=== PATIENT | female | born 1955 | race Caucasian/White ===

== ENCOUNTER 2020-03-04 09:48 | Outpatient (REF) | payer MEDICAID, SELFPAY ==
[2020-03-04 10:22] LABS: MANUAL DIFF FLAG NO
[2020-03-04 10:50] LABS: Basophils Percent Auto 0.3 % (0-2); Eosinophils Absolute Auto 0.1 X10*3/uL (0.0-0.4); Eosinophils Percent Auto 0.8 % (0-4); Hematocrit 39.9 % (37-47); Hemoglobin 12.2 g/dl (12.0-16.0); Imm Gran Abs Auto 0.03 X10*3/uL (0.00-0.03); Imm Gran Pct Auto 0.5 % (0.0-0.4); Lymphocytes Absolute Auto 1.9 X10*3/uL (1.2-4.9); Lymphocytes Percent Auto 31.4 % (20-40); Mean Corpuscular HGB Conc 30.6 g/dl (31.0-35.0); Mean Corpuscular Hemoglobin 28.2 pg (27.0-33.0); Mean Corpuscular Volume 92.1 fL (80-98); Mean Platelet Volume 11.9 fL (9.4-12.3); Monocytes Absolute Auto 0.4 X10*3/uL (0.1-1.2); Monocytes Percent Auto 6.7 % (2-11); Neutrophils Absolute Auto 3.6 X10*3/uL (2.0-8.3); Neutrophils Percent Auto 60.3 % (45-73); Platelet Count 251 X10*3/uL (160-400); Red Blood Count 4.33 X10*6/uL (4.20-5.50); Red Cell Distribution Width 14.2 % (11.0-16.0)
[2020-03-04 11:25] LABS: Alanine Aminotransferase 35 U/L (0-31); Albumin Level 3.9 g/dL (3.5-5.0); Alkaline Phosphatase 144 U/L (39-117); Anion Gap 10 (12-20); Aspartate Amino Transferase 30 U/L (5-31); Blood Urea Nitrogen 22 mg/dL (9-16); Calcium 8.5 mg/dL (8.4-10.2); Carbon Dioxide 31 mmol/L (22-29); Chloride 105 mmol/L (96-108); Cholesterol 125 mg/dL; Estimated Glomerular Filt Rate > 60; Glucose Random 95 mg/dL (60-115); HDL Cholesterol 54 mg/dL; LDL Cholesterol Calculated 51 mg/dl; Potassium 4.3 mmol/l (3.3-5.1); Sodium 142 mmol/L (135-145); Total Protein 6.7 g/dL (6.5-8.0); Triglycerides 102 mg/dL
[2020-03-04 11:33] LABS: Bilirubin Total 0.2 mg/dL (0.0-1.0)
== END 2020-03-04 09:49 | disposition home or self-care (01) ==
LOC: HO.LABR 09:48
PROVIDERS: PCP Internal Medicine Medical Oncology; Visit Provider Internal Medicine Medical Oncology
DX: I63.9 Cerebral infarction, unspecified (principal); E66.3 Overweight; Z78.0 Asymptomatic menopausal state
CPT/HCPCS: 36415; 80053; 80061; 85025; 85610

== ENCOUNTER → 2020-03-25 10:11 | Outpatient (BNVA) | payer MEDICAID, SELFPAY | PROVIDERS: PCP Internal Medicine Medical Oncology; Visit Provider Internal Medicine | DX: I69.90 Unspecified sequelae of unspecified cerebrovascular disease (principal); Z79.01 Long term (current) use of anticoagulants; Z51.81 Encounter for therapeutic drug level monitoring | CPT/HCPCS: 85610; 99211 ==

== ENCOUNTER → 2020-05-08 09:38 | Outpatient (BNVA) | payer MEDICAID, SELFPAY | PROVIDERS: PCP Internal Medicine Medical Oncology; Visit Provider Internal Medicine | DX: I69.30 Unspecified sequelae of cerebral infarction (principal); Z51.81 Encounter for therapeutic drug level monitoring; Z79.01 Long term (current) use of anticoagulants | CPT/HCPCS: 85610; 99211 ==

== ENCOUNTER 2020-05-21 12:25 | Outpatient (REF) | payer MEDICAID, SELFPAY | END 2020-05-21 12:26 | disposition home or self-care (01) | LOC: HO.MAMMO 12:25 | PROVIDERS: PCP Internal Medicine Medical Oncology; Visit Provider Internal Medicine Medical Oncology | DX: Z13.89 Encounter for screening for other disorder (principal) ==

== ENCOUNTER → 2020-05-22 10:38 | Outpatient (BNVA) | payer MEDICAID, SELFPAY | PROVIDERS: PCP Internal Medicine Medical Oncology; Visit Provider Internal Medicine | DX: I69.90 Unspecified sequelae of unspecified cerebrovascular disease (principal); Z79.01 Long term (current) use of anticoagulants; Z51.81 Encounter for therapeutic drug level monitoring | CPT/HCPCS: 85610; 99211 ==

== ENCOUNTER 2020-05-30 09:23 | Outpatient (REF) | payer MEDICAID, SELFPAY ==
[2020-05-30 11:39] LABS: INTERNATIONAL NORM RATIO 2.7 (0.9-1.1); Prothrombin Time 32.2 SEC (10.8-13.0)
== END 2020-05-30 09:24 | disposition home or self-care (01) ==
LOC: HO.LAB 09:23
PROVIDERS: PCP Internal Medicine Medical Oncology; Visit Provider Internal Medicine Medical Oncology
DX: I63.9 Cerebral infarction, unspecified (principal)
CPT/HCPCS: 36415; 85610

== ENCOUNTER → 2020-06-12 10:06 | Outpatient (BNVA) | payer MEDICAID, SELFPAY | PROVIDERS: PCP Internal Medicine Medical Oncology; Visit Provider Internal Medicine | DX: I69.30 Unspecified sequelae of cerebral infarction (principal); Z51.81 Encounter for therapeutic drug level monitoring; Z79.01 Long term (current) use of anticoagulants | CPT/HCPCS: 85610; 99211 ==

== ENCOUNTER 2020-06-27 10:51 | Outpatient (REF) | payer MEDICAID, SELFPAY ==
[2020-06-27 12:29] LABS: Glucose Urine UA NEG (NEG); Leukocyte Esterase Urine NEG (NEG); Nitrite Urine NEG (NEG); Urine Blood NEG (NEG); Urine Ketones NEG (NEG); Urine Protein NEG (NEG-TRACE)
[2020-06-27 12:41] LABS: Appearance Urine CLEAR; Color Urine YELLOW
== END 2020-06-27 10:52 | disposition home or self-care (01) ==
LOC: HO.LAB 10:51
PROVIDERS: PCP Internal Medicine Medical Oncology; Visit Provider Internal Medicine Medical Oncology
DX: N39.0 Urinary tract infection, site not specified (principal)
CPT/HCPCS: 81003; 87086

== ENCOUNTER → 2020-07-03 10:19 | Outpatient (BNVA) | payer MEDICAID, SELFPAY | PROVIDERS: PCP Internal Medicine Medical Oncology; Visit Provider Internal Medicine | DX: I69.30 Unspecified sequelae of cerebral infarction (principal); Z51.81 Encounter for therapeutic drug level monitoring; Z79.01 Long term (current) use of anticoagulants | CPT/HCPCS: 85610; 99211 ==

== ENCOUNTER → 2020-07-31 09:45 | Outpatient (BNVA) | payer MEDICAID, SELFPAY | PROVIDERS: PCP Internal Medicine Medical Oncology; Visit Provider Internal Medicine | DX: I69.30 Unspecified sequelae of cerebral infarction (principal); Z51.81 Encounter for therapeutic drug level monitoring; Z79.01 Long term (current) use of anticoagulants | CPT/HCPCS: 85610; 99211 ==

== ENCOUNTER 2020-08-26 09:58 | Outpatient (REF) | payer MEDICAID, SELFPAY ==
[2020-08-26 10:53] LABS: MANUAL DIFF FLAG NO
[2020-08-26 11:02] LABS: Basophils Percent Auto 0.5 % (0-2); Eosinophils Absolute Auto 0.1 X10*3/uL (0.0-0.4); Eosinophils Percent Auto 1.8 % (0-4); Hematocrit 40.8 % (37-47); Hemoglobin 12.4 g/dl (12.0-16.0); Imm Gran Abs Auto 0.02 X10*3/uL (0.00-0.03); Imm Gran Pct Auto 0.3 % (0.0-0.4); Lymphocytes Percent Auto 32.5 % (20-40); Mean Corpuscular HGB Conc 30.4 g/dl (31.0-35.0); Mean Corpuscular Hemoglobin 27.7 pg (27.0-33.0); Mean Corpuscular Volume 91.3 fL (80-98); Mean Platelet Volume 12.3 fL (9.4-12.3); Monocytes Absolute Auto 0.4 X10*3/uL (0.1-1.2); Monocytes Percent Auto 7.3 % (2-11); Neutrophils Absolute Auto 3.5 X10*3/uL (2.0-8.3); Neutrophils Percent Auto 57.6 % (45-73); Platelet Count 254 X10*3/uL (160-400); Red Blood Count 4.47 X10*6/uL (4.20-5.50); Red Cell Distribution Width 14.6 % (11.0-16.0)
[2020-08-26 11:17] LABS: Alanine Aminotransferase 33 U/L (0-31); Alkaline Phosphatase 139 U/L (39-117); Anion Gap 13 (12-20); Aspartate Amino Transferase 28 U/L (5-31); Bilirubin Total 0.3 mg/dL (0.0-1.0); Blood Urea Nitrogen 30 mg/dL (9-16); Calcium 8.6 mg/dL (8.4-10.2); Carbon Dioxide 25 mmol/L (22-29); Chloride 109 mmol/L (96-108); Cholesterol 113 mg/dL; Estimated Glomerular Filt Rate > 60; Glucose Fasting 92 mg/dL (60-99); HDL Cholesterol 49 mg/dL; LDL Cholesterol Calculated 46 mg/dl; Potassium 4.2 mmol/L (3.3-5.1); Sodium 143 mmol/L (135-145); Triglycerides 92 mg/dL
== END 2020-08-26 09:59 | disposition home or self-care (01) ==
LOC: HO.LAB 09:58
PROVIDERS: PCP Internal Medicine Medical Oncology; Visit Provider Internal Medicine Medical Oncology
DX: I10 Essential (primary) hypertension (principal); E66.3 Overweight; I69.30 Unspecified sequelae of cerebral infarction; Z51.81 Encounter for therapeutic drug level monitoring; Z79.01 Long term (current) use of anticoagulants
CPT/HCPCS: 36415; 80053; 80061; 85025; 85610; 99211

== ENCOUNTER → 2020-09-09 09:18 | Outpatient (BNVA) | payer MEDICAID, SELFPAY | PROVIDERS: PCP Internal Medicine Medical Oncology; Visit Provider Internal Medicine | DX: I69.30 Unspecified sequelae of cerebral infarction (principal); Z51.81 Encounter for therapeutic drug level monitoring; Z79.01 Long term (current) use of anticoagulants | CPT/HCPCS: 85610; 99211 ==

== ENCOUNTER → 2020-10-07 09:35 | Outpatient (BNVA) | payer MEDICAID, SELFPAY | PROVIDERS: PCP Internal Medicine Medical Oncology; Visit Provider Internal Medicine | DX: I69.30 Unspecified sequelae of cerebral infarction (principal); Z51.81 Encounter for therapeutic drug level monitoring; Z79.01 Long term (current) use of anticoagulants | CPT/HCPCS: 85610; 99211 ==

== ENCOUNTER → 2020-10-30 09:44 | Outpatient (BNVA) | payer MEDICARE, MEDICAID, SELFPAY | PROVIDERS: PCP Internal Medicine Medical Oncology; Visit Provider Internal Medicine | DX: I69.30 Unspecified sequelae of cerebral infarction (principal); Z51.81 Encounter for therapeutic drug level monitoring; Z79.01 Long term (current) use of anticoagulants | CPT/HCPCS: 85610; 99211 ==

== ENCOUNTER → 2020-11-20 13:50 | Outpatient (BNVA) | payer MEDICARE, MEDICAID, SELFPAY | PROVIDERS: PCP Internal Medicine Medical Oncology; Visit Provider Internal Medicine | DX: Z86.73 Personal history of transient ischemic attack (TIA), and cerebral infarction without residual deficits (principal); Z51.81 Encounter for therapeutic drug level monitoring; Z79.01 Long term (current) use of anticoagulants | CPT/HCPCS: 85610; 99211 ==

== ENCOUNTER 2020-11-21 08:55 | Outpatient (REF) | payer MEDICARE, MEDICAID, SELFPAY ==
[2020-11-21 09:52] LABS: MANUAL DIFF FLAG NO
[2020-11-21 10:10] LABS: Basophils Percent Auto 0.3 % (0-2); Eosinophils Absolute Auto 0.1 X10*3/uL (0.0-0.4); Eosinophils Percent Auto 1.4 % (0-4); Hematocrit 39.7 % (37-47); Imm Gran Abs Auto 0.03 X10*3/uL (0.00-0.03); Imm Gran Pct Auto 0.5 % (0.0-0.4); Lymphocytes Absolute Auto 1.9 X10*3/uL (1.2-4.9); Lymphocytes Percent Auto 32.5 % (20-40); Mean Corpuscular HGB Conc 30.2 g/dl (31.0-35.0); Mean Corpuscular Hemoglobin 27.3 pg (27.0-33.0); Mean Corpuscular Volume 90.4 fL (80-98); Mean Platelet Volume 11.9 fL (9.4-12.3); Monocytes Absolute Auto 0.4 X10*3/uL (0.1-1.2); Monocytes Percent Auto 7.1 % (2-11); Neutrophils Absolute Auto 3.4 X10*3/uL (2.0-8.3); Neutrophils Percent Auto 58.2 % (45-73); Platelet Count 238 X10*3/uL (160-400); Red Blood Count 4.39 X10*6/uL (4.20-5.50); White Blood Count 5.9 X10*3/uL (4.8-10.8)
[2020-11-21 10:29] LABS: Alanine Aminotransferase 35 U/L (0-31); Albumin Level 3.9 g/dL (3.5-5.0); Alkaline Phosphatase 144 U/L (39-117); Anion Gap 12 (12-20); Aspartate Amino Transferase 33 U/L (5-31); Bilirubin Total 0.3 mg/dL (0.0-1.0); Blood Urea Nitrogen 22 mg/dL (9-16); Calcium 8.8 mg/dL (8.4-10.2); Carbon Dioxide 26 mmol/L (22-29); Chloride 108 mmol/L (96-108); Cholesterol 118 mg/dL; Estimated Glomerular Filt Rate > 60; Glucose Random 110 mg/dL (60-115); HDL Cholesterol 52 mg/dL; LDL Cholesterol Calculated 47 mg/dl; Potassium 4.3 mmol/L (3.3-5.1); Sodium 142 mmol/L (135-145); Total Protein 6.9 g/dL (6.5-8.0); Triglycerides 96 mg/dL
== END 2020-11-21 08:56 | disposition home or self-care (01) ==
LOC: HO.LAB 08:55
PROVIDERS: PCP Internal Medicine Medical Oncology; Visit Provider Internal Medicine Medical Oncology
DX: Z86.73 Personal history of transient ischemic attack (TIA), and cerebral infarction without residual deficits (principal); I10 Essential (primary) hypertension
CPT/HCPCS: 36415; 80053; 80061; 85025

== ENCOUNTER → 2020-12-18 09:40 | Outpatient (BNVA) | payer MEDICARE, MEDICAID, SELFPAY | PROVIDERS: PCP Internal Medicine Medical Oncology; Visit Provider Internal Medicine | DX: I69.30 Unspecified sequelae of cerebral infarction (principal); Z51.81 Encounter for therapeutic drug level monitoring; Z79.01 Long term (current) use of anticoagulants | CPT/HCPCS: 85610; 99211 ==

== ENCOUNTER → 2021-01-23 10:04 | Outpatient (BNVA) | payer MEDICARE, MEDICAID, SELFPAY | PROVIDERS: PCP Internal Medicine Medical Oncology; Visit Provider Internal Medicine | DX: I69.30 Unspecified sequelae of cerebral infarction (principal); Z51.81 Encounter for therapeutic drug level monitoring; Z79.01 Long term (current) use of anticoagulants | CPT/HCPCS: 85610; 99211 ==

== ENCOUNTER → 2021-02-20 09:37 | Outpatient (BNVA) | payer MEDICARE, MEDICAID, SELFPAY | PROVIDERS: PCP Internal Medicine Medical Oncology; Visit Provider Internal Medicine | DX: Z86.73 Personal history of transient ischemic attack (TIA), and cerebral infarction without residual deficits (principal); Z51.81 Encounter for therapeutic drug level monitoring; Z79.01 Long term (current) use of anticoagulants | CPT/HCPCS: 85610; 99211 ==

== ENCOUNTER 2021-03-12 10:46 | Outpatient (REF) | payer MEDICARE, MEDICAID, SELFPAY | END 2021-03-12 10:47 | disposition home or self-care (01) | LOC: HO.MAMMO 10:46 | PROVIDERS: Visit Provider Internal Medicine Medical Oncology | DX: Z13.89 Encounter for screening for other disorder (principal) ==

== ENCOUNTER → 2021-03-20 09:51 | Outpatient (BNVA) | payer MEDICARE, MEDICAID, SELFPAY | PROVIDERS: PCP Internal Medicine Medical Oncology; Visit Provider Internal Medicine | DX: I69.30 Unspecified sequelae of cerebral infarction (principal); Z51.81 Encounter for therapeutic drug level monitoring; Z79.01 Long term (current) use of anticoagulants | CPT/HCPCS: 85610; 99211 ==

== ENCOUNTER → 2021-04-17 09:47 | Outpatient (BNVA) | payer MEDICARE, MEDICAID, SELFPAY | PROVIDERS: PCP Internal Medicine Medical Oncology; Visit Provider Internal Medicine | DX: I69.30 Unspecified sequelae of cerebral infarction (principal); Z51.81 Encounter for therapeutic drug level monitoring; Z79.01 Long term (current) use of anticoagulants | CPT/HCPCS: 85610; 99211 ==

== ENCOUNTER 2021-04-25 10:00 | Outpatient (RCR) | payer MEDICARE, MEDICAID, SELFPAY | END 2021-05-07 08:29 | disposition home or self-care (01) | LOC: HO.PT 10:00 | PROVIDERS: PCP Internal Medicine Medical Oncology; Visit Provider Internal Medicine Medical Oncology | DX: I63.9 Cerebral infarction, unspecified (principal) | CPT/HCPCS: 97110; 97116; 97162; 97530 ==

== ENCOUNTER → 2021-05-22 10:06 | Outpatient (BNVA) | payer MEDICARE, MEDICAID, SELFPAY | PROVIDERS: PCP Internal Medicine Medical Oncology; Visit Provider Internal Medicine | DX: I69.30 Unspecified sequelae of cerebral infarction (principal); Z51.81 Encounter for therapeutic drug level monitoring; Z79.01 Long term (current) use of anticoagulants | CPT/HCPCS: 85610; 99211 ==

== ENCOUNTER → 2021-06-23 10:19 | Outpatient (BNVA) | payer MEDICARE, MEDICAID, SELFPAY | PROVIDERS: PCP Internal Medicine Medical Oncology; Visit Provider Internal Medicine | DX: I69.30 Unspecified sequelae of cerebral infarction (principal); Z51.81 Encounter for therapeutic drug level monitoring; Z79.01 Long term (current) use of anticoagulants | CPT/HCPCS: 85610; 99211 ==

== ENCOUNTER → 2021-07-21 10:09 | Outpatient (BNVA) | payer MEDICARE, MEDICAID, SELFPAY | PROVIDERS: PCP Internal Medicine Medical Oncology; Visit Provider Internal Medicine | DX: I69.30 Unspecified sequelae of cerebral infarction (principal); Z51.81 Encounter for therapeutic drug level monitoring; Z79.01 Long term (current) use of anticoagulants | CPT/HCPCS: 85610; 99211 ==

== ENCOUNTER → 2021-08-18 09:47 | Outpatient (BNVA) | payer MEDICARE, MEDICAID, SELFPAY | PROVIDERS: PCP Internal Medicine Medical Oncology; Visit Provider Internal Medicine | DX: I69.30 Unspecified sequelae of cerebral infarction (principal); Z51.81 Encounter for therapeutic drug level monitoring; Z79.01 Long term (current) use of anticoagulants | CPT/HCPCS: 85610; 99211 ==

== ENCOUNTER 2021-08-26 10:06 | Outpatient (REF) | payer MEDICARE, MEDICAID, SELFPAY ==
[2021-08-26 10:25] LABS: MANUAL DIFF FLAG NO
[2021-08-26 10:46] LABS: Basophils Percent Auto 0.4 % (0-2); Eosinophils Absolute Auto 0.1 X10*3/uL (0.0-0.4); Eosinophils Percent Auto 1.5 % (0-4); Hematocrit 41.3 % (37.0-47.0); Hemoglobin 12.6 g/dl (12.0-16.0); Imm Gran Abs Auto 0.03 X10*3/uL (0.00-0.03); Imm Gran Pct Auto 0.4 % (0.0-0.4); Lymphocytes Absolute Auto 2.2 X10*3/uL (1.2-4.9); Lymphocytes Percent Auto 31.9 % (20-40); Mean Corpuscular HGB Conc 30.5 g/dl (31.0-35.0); Mean Corpuscular Hemoglobin 27.2 pg (27.0-33.0); Mean Platelet Volume 11.7 fL (9.4-12.3); Monocytes Absolute Auto 0.6 X10*3/uL (0.1-1.2); Monocytes Percent Auto 8.3 % (2-11); Neutrophils Absolute Auto 3.9 x10*3/uL (2.0-8.3); Neutrophils Percent Auto 57.5 % (45-73); Platelet Count 256 X10*3/uL (160-400); Red Blood Count 4.64 X10*6/uL (4.20-5.50); Red Cell Distribution Width 15.7 % (11.0-16.0); White Blood Count 6.7 X10*3/uL (4.8-10.8)
[2021-08-26 11:16] LABS: Alanine Aminotransferase 44 U/L (0-31); Alkaline Phosphatase 153 U/L (39-117); Anion Gap 13 (12-20); Aspartate Amino Transferase 40 U/L (5-31); Bilirubin Total 0.3 mg/dL (0.0-1.0); Blood Urea Nitrogen 23 mg/dL (9-16); Calcium 9.1 mg/dL (8.4-10.2); Carbon Dioxide 27 mmol/L (22-29); Chloride 107 mmol/L (96-108); Cholesterol 104 mg/dL; Estimated Glomerular Filt Rate > 60; Glucose Fasting 112 mg/dL (60-99); HDL Cholesterol 41 mg/dL; LDL Cholesterol Calculated 45 mg/dl; Potassium 4.6 mmol/L (3.3-5.1); Sodium 142 mmol/L (135-145); Total Protein 6.9 g/dL (6.5-8.0); Triglycerides 92 mg/dL
== END 2021-08-26 10:07 | disposition home or self-care (01) ==
LOC: HO.LAB 10:06
PROVIDERS: PCP Internal Medicine Medical Oncology; Visit Provider Internal Medicine Medical Oncology
DX: I10 Essential (primary) hypertension (principal); I63.9 Cerebral infarction, unspecified; E66.9 Obesity, unspecified
CPT/HCPCS: 36415; 80053; 80061; 85025

== ENCOUNTER 2021-09-17 11:11 | Outpatient (REF) | payer MEDICARE, MEDICAID, SELFPAY ==
--- NOTE | ~2021-09-17 | US_ITS ---
EXAMINATION: US ABDOMEN COMPLETE CLINICAL INFORMATION: Abnormal levels of serum enzymes. Gallstones. COMPARISON: CT abdomen and pelvis 09/13/2012, Ultrasound abdomen 05/27/2010. TECHNIQUE: Real-time imaging of the abdominal viscera. FINDINGS: PANCREAS: Normal. ABDOMINAL AORTA: Visualized aorta is normal in caliber however portions are obscured by bowel gas. INFERIOR VENA CAVA: Visualized portions are normal. LIVER: The liver is normal in size. The liver contour is normal. There is diffuse increased liver parenchymal echogenicity, consistent with infiltrative hepatocellular disease. Benign-appearing 1.8 cm cyst in the left hepatic lobe. There is no intrahepatic biliary duct dilatation seen. GALLBLADDER: A 5 mm gallbladder polyp is slightly decreased from 2010 where it measured 7 mm The gallbladder is physiologically distended without evidence of stones, sludge, wall thickening or pericholecystic fluid. COMMON BILE DUCT: Normal in caliber measuring 0.3 cm in diameter. RIGHT KIDNEY: Normal. No hydronephrosis. No renal calculi or focal parenchymal lesions. The kidney measures 8.7 cm in maximum dimension. LEFT KIDNEY: Normal. No hydronephrosis. No renal calculi or focal parenchymal lesions. The kidney measures 8.3 cm in maximum dimension. SPLEEN: Normal. The spleen measures 10.6 cm in maximum dimension. FREE FLUID: None. US/US abdomen complete IMPRESSION: A 5 mm gallbladder polyp is slightly decreased in size from 2010. Increased hepatic echogenicity which can be seen in the setting of hepatic steatosis or underlying liver disease.
== END 2021-09-17 11:12 | disposition home or self-care (01) ==
LOC: HO.US 11:11
PROVIDERS: Visit Provider Internal Medicine Medical Oncology
DX: K80.20 Calculus of gallbladder without cholecystitis without obstruction (principal); R74.8 Abnormal levels of other serum enzymes; I69.30 Unspecified sequelae of cerebral infarction; Z51.81 Encounter for therapeutic drug level monitoring; Z79.01 Long term (current) use of anticoagulants
CPT/HCPCS: 76700; 85610; 99211

== ENCOUNTER 2021-09-24 09:19 | Outpatient (REF) | payer MEDICARE, MEDICAID, SELFPAY | END 2021-09-24 09:20 | disposition home or self-care (01) | LOC: HO.MAMMO 09:19 | PROVIDERS: Visit Provider Internal Medicine Medical Oncology | DX: Z13.89 Encounter for screening for other disorder (principal) ==

== ENCOUNTER → 2021-10-14 11:16 | Outpatient (BNVA) | payer MEDICARE, MEDICAID, SELFPAY | PROVIDERS: PCP Internal Medicine Medical Oncology; Visit Provider Internal Medicine | DX: I69.30 Unspecified sequelae of cerebral infarction (principal); Z79.01 Long term (current) use of anticoagulants; Z51.81 Encounter for therapeutic drug level monitoring | CPT/HCPCS: 85610; 99211 ==

== ENCOUNTER → 2021-10-24 09:37 | Outpatient (BNVA) | payer MEDICARE, MEDICAID, SELFPAY | PROVIDERS: PCP Internal Medicine Medical Oncology; Visit Provider Internal Medicine | DX: I69.30 Unspecified sequelae of cerebral infarction (principal); Z79.01 Long term (current) use of anticoagulants; Z51.81 Encounter for therapeutic drug level monitoring | CPT/HCPCS: 85610; 99211 ==

== ENCOUNTER → 2021-11-04 09:53 | Outpatient (BNVA) | payer MEDICARE, MEDICAID, SELFPAY | PROVIDERS: PCP Internal Medicine Medical Oncology; Visit Provider Internal Medicine | DX: I69.30 Unspecified sequelae of cerebral infarction (principal); Z79.01 Long term (current) use of anticoagulants; Z51.81 Encounter for therapeutic drug level monitoring | CPT/HCPCS: 85610; 99211 ==

== ENCOUNTER 2021-11-13 10:18 | Outpatient (REF) | payer MEDICARE, MEDICAID, SELFPAY ==
--- NOTE | ~2021-11-13 | MM_ITS ---
EXAMINATION: MM SCREENING DIGITAL BREAST TOMOSYNTHESIS, BILATERAL CLINICAL INFORMATION: Screening. Asymptomatic. The lifetime risk of breast cancer based on the Tyrer-Cuzick Model is 9%. COMPARISON: Mammography: 04/13/2018, 03/17/2017, 03/04/2017 TECHNIQUE: Digital breast tomosynthesis is performed in both the craniocaudal and mediolateral oblique views along with computer-aided detection (CAD). Synthesized 2D images are generated from the tomosynthesis. Additional bilateral exaggerated CC views are provided. Technologist notes technically challenging exam, patient in wheelchair. 2 technologists used for positioning. Exam tailored to patient capabilities. FINDINGS: There are scattered areas of fibroglandular density (ACR BI-RADS breast composition Category b). The submitted images show no significant mass, architectural abnormality, or abnormal calcifications. The skin contours are smooth. MM/MM tomosynthesis screening BI IMPRESSION: -No mammographic evidence of malignancy. -Technically challenging exam tailored to patient capabilities. ASSESSMENT: BI-RADS 2: Benign RECOMMENDATION: Routine annual mammography screening. This patient's information was entered into a reminder system with a target due date for their next mammogram.
== END 2021-11-13 10:19 | disposition home or self-care (01) ==
LOC: HO.MAMMO 10:18
PROVIDERS: Visit Provider Internal Medicine Medical Oncology
DX: Z12.31 Encounter for screening mammogram for malignant neoplasm of breast (principal)
CPT/HCPCS: 77063; 77067

== ENCOUNTER → 2021-12-02 08:52 | Outpatient (BNVA) | payer MEDICARE, MEDICAID, SELFPAY | PROVIDERS: PCP Internal Medicine Medical Oncology; Visit Provider Internal Medicine | DX: K21.9 Gastro-esophageal reflux disease without esophagitis (principal); R10.12 Left upper quadrant pain; I69.351 Hemiplegia and hemiparesis following cerebral infarction affecting right dominant side; I69.328 Other speech and language deficits following cerebral infarction; Z12.11 Encounter for screening for malignant neoplasm of colon; Z99.3 Dependence on wheelchair; Z51.81 Encounter for therapeutic drug level monitoring; Z79.01 Long term (current) use of anticoagulants | CPT/HCPCS: 85610; 99202; 99211 ==

== ENCOUNTER → 2021-12-30 09:51 | Outpatient (BNVA) | payer MEDICARE, MEDICAID, SELFPAY | PROVIDERS: PCP Internal Medicine Medical Oncology; Visit Provider Internal Medicine | DX: I69.30 Unspecified sequelae of cerebral infarction (principal); Z79.01 Long term (current) use of anticoagulants; Z51.81 Encounter for therapeutic drug level monitoring | CPT/HCPCS: 85610; 99211 ==

== ENCOUNTER → 2022-01-27 10:08 | Outpatient (BNVA) | payer MEDICARE, MEDICAID, SELFPAY | PROVIDERS: PCP Internal Medicine Medical Oncology; Visit Provider Internal Medicine | DX: I69.30 Unspecified sequelae of cerebral infarction (principal); Z79.01 Long term (current) use of anticoagulants; Z51.81 Encounter for therapeutic drug level monitoring | CPT/HCPCS: 85610; 99211 ==

== ENCOUNTER 2022-02-03 09:45 | Outpatient (REF) | payer MEDICARE, MEDICAID, SELFPAY ==
[2022-02-03 10:05] LABS: MANUAL DIFF FLAG NO
[2022-02-03 10:51] LABS: Basophils Percent Auto 0.3 % (0-2); Eosinophils Absolute Auto 0.1 X10*3/uL (0.0-0.4); Eosinophils Percent Auto 1.3 % (0-4); Hematocrit 41.7 % (37.0-47.0); Hemoglobin 12.5 g/dl (12.0-16.0); Imm Gran Abs Auto 0.03 X10*3/uL (0.00-0.03); Imm Gran Pct Auto 0.5 % (0.0-0.4); Lymphocytes Absolute Auto 2.1 X10*3/uL (1.2-4.9); Lymphocytes Percent Auto 32.9 % (20-40); Mean Corpuscular Hemoglobin 26.4 pg (27.0-33.0); Mean Platelet Volume 12.7 fL (9.4-12.3); Monocytes Absolute Auto 0.5 X10*3/uL (0.1-1.2); Monocytes Percent Auto 8.1 % (2-11); Neutrophils Absolute Auto 3.6 x10*3/uL (2.0-8.3); Neutrophils Percent Auto 56.9 % (45-73); Platelet Count 195 X10*3/uL (160-400); Red Blood Count 4.74 X10*6/uL (4.20-5.50); White Blood Count 6.3 X10*3/uL (4.8-10.8)
[2022-02-03 11:20] LABS: Alanine Aminotransferase 39 U/L (0-31); Albumin Level 3.9 g/dL (3.5-5.0); Alkaline Phosphatase 169 U/L (39-117); Anion Gap 16 (12-20); Aspartate Amino Transferase 34 U/L (5-31); Bilirubin Total 0.3 mg/dL (0.0-1.0); Blood Urea Nitrogen 23 mg/dL (9-16); Calcium 8.8 mg/dL (8.4-10.2); Carbon Dioxide 24 mmol/L (22-29); Chloride 108 mmol/L (96-108); Cholesterol 108 mg/dL; Estimated Glomerular Filt Rate > 60; Glucose Fasting 117 mg/dL (60-99); HDL Cholesterol 39 mg/dL; LDL Cholesterol Calculated 49 mg/dl; Potassium 4.4 mmol/L (3.3-5.1); Sodium 144 mmol/L (135-145); Total Protein 6.8 g/dL (6.5-8.0); Triglycerides 103 mg/dL
== END 2022-02-03 09:46 | disposition home or self-care (01) ==
LOC: HO.LAB 09:45
PROVIDERS: PCP Internal Medicine Medical Oncology; Visit Provider Internal Medicine Medical Oncology
DX: E66.9 Obesity, unspecified (principal); Z86.73 Personal history of transient ischemic attack (TIA), and cerebral infarction without residual deficits; Z78.0 Asymptomatic menopausal state
CPT/HCPCS: 36415; 80053; 80061; 85025

== ENCOUNTER 2022-02-17 09:59 | Outpatient (REF) | payer MEDICARE, MEDICAID, SELFPAY ==
[2022-02-17 10:16] LABS: MANUAL DIFF FLAG NO
[2022-02-17 11:39] LABS: Basophils Percent Auto 0.4 % (0-2); Eosinophils Absolute Auto 0.1 X10*3/uL (0.0-0.4); Hematocrit 41.6 % (37.0-47.0); Hemoglobin 12.7 g/dl (12.0-16.0); Imm Gran Abs Auto 0.05 X10*3/uL (0.00-0.03); Imm Gran Pct Auto 0.7 % (0.0-0.4); Lymphocytes Absolute Auto 2.1 X10*3/uL (1.2-4.9); Lymphocytes Percent Auto 29.5 % (20-40); Mean Corpuscular HGB Conc 30.5 g/dl (31.0-35.0); Mean Corpuscular Volume 88.5 fL (80.0-98.0); Mean Platelet Volume 12.6 fL (9.4-12.3); Monocytes Absolute Auto 0.5 X10*3/uL (0.1-1.2); Monocytes Percent Auto 7.4 % (2-11); Neutrophils Absolute Auto 4.4 x10*3/uL (2.0-8.3); Platelet Count 235 X10*3/uL (160-400); White Blood Count 7.2 X10*3/uL (4.8-10.8)
[2022-02-17 11:54] LABS: Alanine Aminotransferase 37 U/L (0-31); Albumin Level 4.2 g/dL (3.5-5.0); Alkaline Phosphatase 174 U/L (39-117); Anion Gap 17 (12-20); Aspartate Amino Transferase 35 U/L (5-31); Bilirubin Total 0.3 mg/dL (0.0-1.0); Blood Urea Nitrogen 23 mg/dL (9-16); Calcium 8.7 mg/dL (8.4-10.2); Carbon Dioxide 23 mmol/L (22-29); Chloride 107 mmol/L (96-108); Cholesterol 117 mg/dL; Estimated Glomerular Filt Rate > 60; Glucose Fasting 123 mg/dL (60-99); HDL Cholesterol 41 mg/dL; LDL Cholesterol Calculated 56 mg/dl; Potassium 4.6 mmol/L (3.3-5.1); Sodium 142 mmol/L (135-145); Total Protein 7.1 g/dL (6.5-8.0); Triglycerides 102 mg/dL
== END 2022-02-17 10:00 | disposition home or self-care (01) ==
LOC: HO.LAB 09:59
PROVIDERS: PCP Internal Medicine Medical Oncology; Visit Provider Internal Medicine Medical Oncology
DX: I63.9 Cerebral infarction, unspecified (principal); E66.9 Obesity, unspecified
CPT/HCPCS: 36415; 80053; 80061; 85025

== ENCOUNTER → 2022-02-24 10:25 | Outpatient (BNVA) | payer MEDICARE, MEDICAID, SELFPAY | PROVIDERS: PCP Internal Medicine Medical Oncology; Visit Provider Internal Medicine | DX: I69.30 Unspecified sequelae of cerebral infarction (principal); Z79.01 Long term (current) use of anticoagulants; Z51.81 Encounter for therapeutic drug level monitoring | CPT/HCPCS: 85610; 99211 ==

== ENCOUNTER → 2022-03-10 09:44 | Outpatient (BNVA) | payer MEDICARE, MEDICAID, SELFPAY | PROVIDERS: PCP Internal Medicine Medical Oncology; Visit Provider Internal Medicine | DX: I69.30 Unspecified sequelae of cerebral infarction (principal); Z79.01 Long term (current) use of anticoagulants; Z51.81 Encounter for therapeutic drug level monitoring | CPT/HCPCS: 85610; 99211 ==

== ENCOUNTER → 2022-03-25 10:34 | Outpatient (BNVA) | payer MEDICARE, MEDICAID, SELFPAY | PROVIDERS: PCP Internal Medicine Medical Oncology; Referring Provider Internal Medicine Medical Oncology; Visit Provider Internal Medicine Cardiovascular Disease | DX: Z01.810 Encounter for preprocedural cardiovascular examination (principal) | CPT/HCPCS: 93005; 99212 ==

== ENCOUNTER → 2022-03-31 09:35 | Outpatient (BNVA) | payer MEDICARE, MEDICAID, SELFPAY | PROVIDERS: PCP Internal Medicine Medical Oncology; Visit Provider Internal Medicine | DX: I69.30 Unspecified sequelae of cerebral infarction (principal); Z51.81 Encounter for therapeutic drug level monitoring; Z79.01 Long term (current) use of anticoagulants | CPT/HCPCS: 85610; 99211 ==

== ENCOUNTER 2022-04-08 07:53 | Day surgery (SDC) | payer MEDICARE, MEDICAID, SELFPAY ==
[2022-04-01 12:30] VITALS: BMI 32.4
--- NOTE | 2022-04-07 09:28 | P.CONAN_ITS ---
Documented by User: Anita Finney NP 04/07/22 09:33 HPI - Anesthesia Eval Consult details Narrative: 66yo F for Colonoscopy Cardiac cleared Coumadin for hx embolic CVA (will need lovenox bridge per cardio) [facility] Active Problems Active Problems: All Active Problems (Updated 03/25/22 @ 11:17 by Clive Fong MD) Current use of anticoagulant therapy (Acute) Current use of anticoagulant therapy (Acute) Past Medical History Medical History (Updated 04/07/22 @ 09:31 by Anita Finney NP) Cerebrovascular accident, embolic Cervical disc disease Fibromyalgia Gastritis GERD (gastroesophageal reflux disease) HTN (hypertension) Plantar warts Family History Family History Brother HTN (hypertension) Diabetes Son Diabetes Sister Diabetes HTN (hypertension) Social History Social History Household Members: Family Alcohol intake: never Patient Tobacco Use Status: Never used Tobacco Meds Allergies Allergy/AdvReac Type Severity Reaction Status Date / Time acetaminophen [Percocet] Allergy Severe ITCHY RASH Verified 03/31/22 09:48 oxycodone [Percocet] Allergy Severe Itching Verified 03/31/22 09:48 Penicillins [PENICILLINS] Allergy Intermediate itchy rash Verified 03/31/22 09:48 naproxen [NAPROXEN] Allergy Unknown STOMACH Verified 03/31/22 09:48 PAIN Home Medications Medication Instructions Recorded Confirmed Last Taken Type atorvastatin 80 mg tablet 80 mg PO DAILY 11/20/20 01/27/22 Unknown History fluoxetine 20 mg capsule 20 mg PO DAILY 11/20/20 01/27/22 Unknown History gabapentin 100 mg capsule 100 mg PO DAILY 11/20/20 01/27/22 Unknown History metoprolol tartrate 25 mg tablet 25 mg PO BID 11/20/20 01/27/22 Unknown History omeprazole 20 mg capsule,delayed 20 mg PO DAILY 11/20/20 01/27/22 Unknown History release bisacodyl 5 mg tablet 10 mg PO BEDTIME 03/25/22 Unknown History Exam Exam Date and Time: April 07, 2022 0928 Height,Weight and Vital Signs: Height 5 ft 3 in Weight 83.007 kg Pertinent Lab Results Pertinent Lab Results: Laboratory Tests 02/17/22 02/17/22 10:14 10:14 WBC 7.2 Hgb 12.7 Hct 41.6 Plt Count 235 Sodium 142 Potassium 4.6 Chloride 107 Carbon Dioxide 23 BUN 23 H Creatinine 0.74 Narrative Narrative: EKG 03/2022 normal sinus rhythm nonspecific ST T wave changes with poor R-wave progression due to lead placement., ST T wave changes no significant changes compared to prior EKG Assessment and Plan Assessment Anesthesia Assessment: Chart Reviewed Documented by User: Reed Aceves MD 04/08/22 16:16 HPI - Anesthesia Eval Consult details Narrative: 66yo F for Colonoscopy Cardiac cleared Coumadin for hx embolic CVA (will need lovenox bridge per cardio) right sided residual weakness from prior CVA . Was bridged with Lovenox PMF Past Medical History Medical History (Updated 04/07/22 @ 09:31 by Anita Finney NP) Cerebrovascular accident, embolic Cervical disc disease Fibromyalgia Gastritis GERD (gastroesophageal reflux disease) HTN (hypertension) Plantar warts Family History Family History Brother HTN (hypertension) Diabetes Son Diabetes Sister Diabetes HTN (hypertension) Family history of problems with anesthesia: Yes Surgical History History of Problems with Anesthesia: No Social History Social History Household Members: Family Alcohol intake: never Patient Tobacco Use Status: Never used Tobacco Meds Allergies Allergy/AdvReac Type Severity Reaction Status Date / Time acetaminophen [Percocet] Allergy Severe ITCHY RASH Verified 03/31/22 09:48 oxycodone [Percocet] Allergy Severe Itching Verified 03/31/22 09:48 Penicillins [PENICILLINS] Allergy Intermediate itchy rash Verified 03/31/22 09:48 naproxen [NAPROXEN] Allergy Unknown STOMACH Verified 03/31/22 09:48 PAIN Home Medications Medication Instructions Recorded Confirmed Last Taken Type atorvastatin 80 mg tablet 80 mg PO DAILY 11/20/20 01/27/22 Unknown History fluoxetine 20 mg capsule 20 mg PO DAILY 11/20/20 01/27/22 Unknown History gabapentin 100 mg capsule 100 mg PO DAILY 11/20/20 01/27/22 Unknown History metoprolol tartrate 25 mg tablet 25 mg PO BID 11/20/20 01/27/22 Unknown History omeprazole 20 mg capsule,delayed 20 mg PO DAILY 11/20/20 01/27/22 Unknown History release bisacodyl 5 mg tablet 10 mg PO BEDTIME 03/25/22 Unknown History Exam Airway Mallampati Class: IV TM Dist: <=3cm Neck ROM: Full Loose/Missing/Broken Teeth: Yes Heart: S1,S2 Lungs: b/l breath sounds Assessment and Plan Assessment Anesthesia Assessment: Anesthesia Plan Discussed Final Anesthetic Review Family History of Problems with Anesthesia: Yes History of Problems with Anesthesia: No NPO: Yes ASA Class: III Final Preanesthetic Review: Meds/Allgs Chart Reviewed, Consent Obtained/Reviewed and Anes Risks/Benef Reviewed Patient Risk: High Procedure Risk: Intermediate Anesthetic Plan Anesthetic Plan: MAC: Disposition: Standard PACU
[2022-04-08 08:37] LABS: Prothrombin Time 11.7 SEC (10.0-13.1)
[2022-04-08 08:48] VITALS: BP 119/76; PULSE 67; RESP 18; TEMP 36.4; O2SAT 96
--- NOTE | 2022-04-08 09:07 | MHC.SHP ---
Pre-Procedural Eval Section A Date of Service: 04/08/22 Section B Chief Complaint: screening Details of Present Illness: aunt with CRC and cousin with CRC Relevant Family History (Specify if Yes): Yes Relevant Social History: None Present Medications: see Short Stay Collaborative assessment Medical History: Significant History (Cerebrovascular accident, embolic Cervical disc disease Fibromyalgia Gastritis GERD (gastroesophageal reflux disease) HTN (hypertension) Plantar warts) History of Previous Operations: No relevant previous surgery Allergies: Allergies Allergy/AdvReac Type Severity Reaction Status Date / Time acetaminophen [Percocet] Allergy Severe ITCHY RASH Verified 03/31/22 09:48 oxycodone [Percocet] Allergy Severe Itching Verified 03/31/22 09:48 Penicillins [PENICILLINS] Allergy Intermediate itchy rash Verified 03/31/22 09:48 naproxen [NAPROXEN] Allergy Unknown STOMACH Verified 03/31/22 09:48 PAIN Review of Systems Sugical H&P ROS: Negative: Constitution, Cardiovascular, Respiratory, Neurological, Psychiatric, Hem-Onc, Allergic/Immunologic, Gastrointestinal, Genitourinary, Musculoskeletal, Integumentary, Endocrine and Eyes/Ears/Nose/Throat Exam Surgical H&P Exam: Normal: HEENT, Normal: Heart, Normal: Lungs, Normal: Extremities, Normal: Abdomen and Normal: Skin and Significant Findings: Neurological (aphasia, wheel chair bound ) Plan Diagnosis/Plan: Unchanged I have reviewed the history and physical and performed a pertinent physical examination on my patient. No changes have occurred unless specified.
--- NOTE | 2022-04-08 09:09 | W.PM.OPN ---
Operative Note Operative Note Date of Service: 04/08/22 Narrative: Operative Information Procedure Description: Colonoscopy Indication: screening Anesthesia: MAC COLONOSCOPY Instrument: Olympus variable stiffness pediatric scope 190L Colonoscopy Monitoring: Vital signs and clinical assessment, continuous EKG monitoring, Pulse oximetry, Carbon Dioxide monitoring and blood pressure monitoring were done throughout the procedure. Colon withdrawal time was 10 minutes. Procedure: The patient was placed in the left lateral decubitis position and pre-procedure medications were administered. After a digital rectal examination of the ano-rectum, the video colonoscope was inserted into the rectum and advanced through the colon to the cecum/TI. The colonoscope was slowly withdrawn in a retrograde panoramic fashion and the colon mucosa was carefully examined including a retroflexed view of the rectum. Findings and interventions are described below. Procedure Difficulty: easy Findings: Terminal Ileum-not intubated due to looping Cecum: 5-7 mm sessile polyp removed with cold forceps Ascending Colon: normal Transverse Colon -normal Descending Colon:normal Sigmoid Colon: mild diverticulosis Rectum: Retroflexion with small internal hemorrhoids, grade I Anorectum - normal Colon preparation: [place] Bowel Preparation Scale Right colon; 3 Transverse colon: 3 Left colon; 2 (0 = Unprepared colon segment with mucosa not seen due to solid stool that cannot be cleared. 1 = Portion of mucosa of the colon segment seen, but other areas of the colon segment not well seen due to staining, residual stool and/or opaque liquid. 2 = Minor amount of residual staining, small fragments of stool and/or opaque liquid, but mucosa of colon segment seen well. 3 = Entire mucosa of colon segment seen well with no residual staining, small fragments of stool or opaque liquid) Impression and Post Procedure Diagnosis: polyp internal hemorrhoids diverticular disease Plan: High fiber diet leaflet Avoid straining at stool, epsom salts and sitz bath, anusol supps or cream Repeat Colonoscopy in 5 years if adenomatous polyp, 10 yrs if hyperplastic or earlier if clinically indicated can restart lovenox and warfarin today Above findings were reviewed with the patient and relevant handouts were provided if indicated.
[2022-04-08] MEDS: Lactated Ringers 1,000 ML 100 ML IVCONT (09:18)
[2022-04-08 09:59] VITALS: BP 138/78; PULSE 82; RESP 16; TEMP 36.8; O2SAT 99
[2022-04-08 10:14] VITALS: BP 124/65; PULSE 69; RESP 16; O2SAT 98
[2022-04-08 10:29] VITALS: BP 124/75; PULSE 70; RESP 16; TEMP 36.6; O2SAT 96
== END 2022-04-08 10:57 | disposition home or self-care (01) ==
PROVIDERS: Nurse Practitioner; PCP Internal Medicine Medical Oncology; Visit Provider Internal Medicine Gastroenterology
PROC: 0DJD8ZZ Inspection of Lower Intestinal Tract, Via Natural or Artificial Opening Endoscopic (ICD-10-PCS; CPT 45378; principal; 2022-04-08 09:20)
DX: Z12.11 Encounter for screening for malignant neoplasm of colon (principal); K63.5 Polyp of colon; K57.30 Diverticulosis of large intestine without perforation or abscess without bleeding; K64.0 First degree hemorrhoids; K21.9 Gastro-esophageal reflux disease without esophagitis; M79.7 Fibromyalgia; I69.951 Hemiplegia and hemiparesis following unspecified cerebrovascular disease affecting right dominant side; I10 Essential (primary) hypertension; Z79.01 Long term (current) use of anticoagulants; Z79.899 Other long term (current) drug therapy; Z88.0 Allergy status to penicillin; Z88.8 Allergy status to other drugs, medicaments and biological substances
CPT/HCPCS: 45380; 36415; 85610; 88305

== ENCOUNTER → 2022-04-13 09:41 | Outpatient (BNVA) | payer MEDICARE, MEDICAID, SELFPAY | PROVIDERS: PCP Internal Medicine Medical Oncology; Visit Provider Internal Medicine | DX: I69.30 Unspecified sequelae of cerebral infarction (principal); Z79.01 Long term (current) use of anticoagulants; Z51.81 Encounter for therapeutic drug level monitoring | CPT/HCPCS: 85610; 99212 ==

== ENCOUNTER → 2022-04-15 10:58 | Outpatient (BNVA) | payer MEDICARE, MEDICAID, SELFPAY | PROVIDERS: PCP Internal Medicine Medical Oncology; Visit Provider Internal Medicine | DX: I69.30 Unspecified sequelae of cerebral infarction (principal); Z79.01 Long term (current) use of anticoagulants; Z51.81 Encounter for therapeutic drug level monitoring | CPT/HCPCS: 85610; 99211 ==

== ENCOUNTER → 2022-04-22 09:57 | Outpatient (BNVA) | payer MEDICARE, MEDICAID, SELFPAY | PROVIDERS: PCP Internal Medicine Medical Oncology; Referring Provider Internal Medicine Medical Oncology; Visit Provider Nurse Practitioner Family | DX: K59.04 Chronic idiopathic constipation (principal); I69.951 Hemiplegia and hemiparesis following unspecified cerebrovascular disease affecting right dominant side; I69.928 Other speech and language deficits following unspecified cerebrovascular disease; Z98.890 Other specified postprocedural states; Z99.3 Dependence on wheelchair | CPT/HCPCS: 99212 ==

== ENCOUNTER → 2022-04-24 10:02 | Outpatient (BNVA) | payer MEDICARE, MEDICAID, SELFPAY | PROVIDERS: PCP Internal Medicine Medical Oncology; Visit Provider Internal Medicine | DX: I69.30 Unspecified sequelae of cerebral infarction (principal); Z79.01 Long term (current) use of anticoagulants; Z51.81 Encounter for therapeutic drug level monitoring | CPT/HCPCS: 85610; 99211 ==

== ENCOUNTER → 2022-05-01 10:02 | Outpatient (BNVA) | payer MEDICARE, MEDICAID, SELFPAY | PROVIDERS: PCP Internal Medicine Medical Oncology; Visit Provider Internal Medicine | DX: Z86.73 Personal history of transient ischemic attack (TIA), and cerebral infarction without residual deficits (principal); Z79.01 Long term (current) use of anticoagulants; Z51.81 Encounter for therapeutic drug level monitoring | CPT/HCPCS: 85610; 99211 ==

== ENCOUNTER → 2022-05-15 10:22 | Outpatient (BNVA) | payer MEDICARE, MEDICAID, SELFPAY | PROVIDERS: PCP Internal Medicine Medical Oncology; Visit Provider Internal Medicine | DX: I69.30 Unspecified sequelae of cerebral infarction (principal); Z79.01 Long term (current) use of anticoagulants; Z51.81 Encounter for therapeutic drug level monitoring | CPT/HCPCS: 85610; 99211 ==

== ENCOUNTER → 2022-05-29 10:12 | Outpatient (BNVA) | payer MEDICARE, MEDICAID, SELFPAY | PROVIDERS: PCP Internal Medicine Medical Oncology; Visit Provider Internal Medicine | DX: I69.30 Unspecified sequelae of cerebral infarction (principal); Z79.01 Long term (current) use of anticoagulants; Z51.81 Encounter for therapeutic drug level monitoring | CPT/HCPCS: 85610; 99211 ==

== ENCOUNTER → 2022-06-12 10:17 | Outpatient (BNVA) | payer MEDICARE, MEDICAID, SELFPAY | PROVIDERS: PCP Internal Medicine Medical Oncology; Visit Provider Internal Medicine | DX: Z79.01 Long term (current) use of anticoagulants (principal) | CPT/HCPCS: 85610 ==

== ENCOUNTER 2022-06-12 10:43 | Emergency (ER) | payer MEDICARE, MEDICAID, SELFPAY ==
[2022-06-12 10:49] VITALS: BP 153/81; PULSE 70; RESP 18; TEMP 36.4; O2SAT 97; BMI 42.2
--- NOTE | 2022-06-12 11:55 | ED_ITS ---
HPI - Ear Problem General Chief complaint: Ear Problems Stated complaint: Sore on mouth/ Ear Ache/ High INR? sent by Dr. Lubin Seen by Provider: 06/12/22 10:59 Source: patient Mode of arrival: ambulatory Limitations: no limitations History of Present Illness MD Complaint: ear pain Location: left ear Duration: constant Severity: moderate Relieving factors: nothing Exacerbating factors: chewing and palpation Discharge from ear: no Treatment prior to arrival: none Related Data Home Medications Medication Instructions Recorded Confirmed atorvastatin 80 mg tablet 80 mg PO DAILY 11/20/20 05/01/22 fluoxetine 20 mg capsule 20 mg PO DAILY 11/20/20 05/01/22 gabapentin 100 mg capsule 100 mg PO DAILY 11/20/20 05/01/22 metoprolol tartrate 25 mg tablet 25 mg PO BID 11/20/20 05/01/22 omeprazole 20 mg capsule,delayed 20 mg PO DAILY 11/20/20 05/01/22 release bisacodyl 5 mg tablet,delayed 10 mg PO BEDTIME 04/24/22 05/01/22 release Previous Rx's Medication Instructions Recorded warfarin 4 mg tablet 4 mg PO DAILY #90 tabs 03/04/20 bisacodyl 5 mg tablet 10 mg PO BEDTIME #180 tabs 04/22/22 docusate sodium 100 mg capsule 100 mg PO BEDTIME #90 caps 04/22/22 cyclobenzaprine 10 mg tablet 10 mg PO Q8H #14 tabs 06/12/22 Allergies Allergy/AdvReac Type Severity Reaction Status Date / Time acetaminophen [Percocet] Allergy Severe ITCHY RASH Verified 06/12/22 10:20 oxycodone [Percocet] Allergy Severe Itching Verified 06/12/22 10:20 Penicillins [PENICILLINS] Allergy Intermediate itchy rash Verified 06/12/22 10:2 0 naproxen [NAPROXEN] Allergy Unknown STOMACH Verified 06/12/22 10:20 PAIN Review of Systems Review of Systems: Constitutional : No Weight loss, No Fever, No Chills, No Night Sweats, No Fatigue, No Malaise ENT/Mouth : +left ear pain, No Hearing loss, No Nasal Congestion, No Sinus Pain, No Hoarseness, No sore throat, No Rhinorrhea, No Swallowing Difficulty Eyes: No Eye Pain, No Swelling, No Redness, No Foreign Body, No Discharge, No Vision Changes Cardiovascular : No Chest Pain, No SOB, No Dyspnea on Exertion, No Orthopnea, No Edema, No Palpitations Respiratory : No Cough, No Sputum, No Wheezing, No Smoke Exposure, No Dyspnea Gastrointestinal : No Nausea, No Vomiting, No Diarrhea, No Constipation, No abdominal Pain, No Hematochezia, No Melena Genitourinary : no irregular bleeding, No Dysuria, No Urinary Frequency, No Hematuria, No Urinary Incontinence, No Urgency, No Flank Pain, No Urinary Flow Changes, No Hesitancy Musculoskeletal : No joint pain, No Myalgias, No Joint Swelling Skin : No Skin Lesions, No rash Neuro : No Weakness, No Numbness, No Paresthesias, No Loss of Consciousness, No Dizziness, No Headache Psych : No Anxiety/Panic, No Depression, No SI/HI/AH/VH, No Social Issues, Heme/Lymph: No Bruising, No Bleeding,No Lymphadenopathy Endocrine : No Polyuria, No Polydipsia, No Temperature Intolerance Yes all other systems are reviewed and are negative [facility] Past Medical History Attestation statement: The following information was validated with the patient. Source: old records reviewed and nursing notes reviewed Medical History Cerebrovascular accident, embolic Cervical disc disease Fibromyalgia Gastritis GERD (gastroesophageal reflux disease) HTN (hypertension) Plantar warts Surgical History Hx of colonoscopy Family History Family History Brother HTN (hypertension) Diabetes Son Diabetes Sister Diabetes HTN (hypertension) Social History Social History Household Members: Family Alcohol intake: never Patient Tobacco Use Status: Never used Tobacco Advance Directives: Yes Advance Directives on File: Yes Advance Directives Date on File: 04/08/22 Physical Exam Vital Signs: Vital Signs: Last Vital Signs Temp 97.5 F 06/12/22 10:49 Pulse 70 06/12/22 10:49 Resp 18 06/12/22 10:49 BP 153/81 H 06/12/22 10:49 Pulse Ox 97 06/12/22 10:49 O2 Del Method 06/12/22 10:49 BMI result Body Mass Index 42.2 Vital signs reviewed. Blood pressure normal. Pulse normal. Respiration normal. Oxygen normal. Temperature normal. Appearance: Alert. Oriented X3. No acute distress. Head: Normal external exam. Normocephalic. Atraumatic. Eyes: PERRLA. EOMI. Conjunctiva and sclera normal. Eyelids normal. ENT: EAC normal. TM's Normal. No tenderness of the mastoid. Not consistent mastoiditis. Patient having tenderness over the TMJs when she open and close her jaw she reported moderate pain to the left ear consistent with TMJ syndrome. Pharynx normal. Uvula midline. Moist mucous membranes. No lesions/ulcerations or masses noted on the tongue. Normal voice. No trismus noted. No drooling noted. No muffled voice noted. Neck: Normal inspection. Neck supple. FROM. No adenopathy. Thyroid Normal. No meningeal signs. CVS: Normal heart rate and rhythm. Heart sound normal. Pulses normal throughout. No murmurs/rales/gallops. Respiratory: No respiratory distress. Painless inspiration. Back: Full range of motion noted. Nontender. Skin: Skin warm and dry. Normal skin color. Normal skin turgor. No rashes/lesions/lacerations noted. Extremities: Extremities exhibit normal range of motion and nontender. Neuro: Oriented X 3. No motor deficit. No sensory deficit. Reflexes normal. Normal steady gait. No focal neuro deficits noted. CN's II-XII intact bilaterally? Vascular: + radial pulses. Normal cap refill. No cyanosis noted to upper extremity nails Course Course Course Narrative: Patient with TMJ syndrome. I considered mastoiditis, epidural abscess, malig OE, meningitis, and other infxs but the hx, exam& data did not support the diagnoses. The pt/family was advised that some diseases present atypically & the pt was given explicit DC instructions will DC home with symptomatic treatment instructions to follow-up with PCP. Patient with son at bedside understand agree this plan. Medications Administered Discontinued Medications Generic Name Dose Route Start Last Admin Trade Name Freq PRN Reason Stop Dose Admin Cyclobenzaprine HCl 10 mg 06/12/22 11:56 06/12/22 12:04 Cyclobenzaprine Hcl 10 Mg Tablet PO 06/12/22 11:57 10 mg ONCE ONE Administration Medical Decision Making Independent Historian Clinical information obtained from an independent historian. 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 Patient Disposition: Home, Self-Care Instructions: Temporomandibular Disorder (ED) Prescriptions: New cyclobenzaprine 10 mg tablet 10 mg PO Q8H Qty: 14 0RF No Action metoprolol tartrate 25 mg tablet 25 mg PO BID fluoxetine 20 mg capsule 20 mg PO DAILY gabapentin 100 mg capsule 100 mg PO DAILY omeprazole 20 mg capsule,delayed release(DR/EC) 20 mg PO DAILY atorvastatin 80 mg tablet 80 mg PO DAILY warfarin 4 mg tablet 4 mg PO DAILY Qty: 90 0RF Protocol: Dose Management Condition: Wednesday (Week One) Dose/Route: 2 mg Instruction: 0.5 x 4 mg tablets Condition: Wednesday Dose/Route: 4 mg Instruction: 1 x 4 mg tablet Condition: Wednesday Dose/Route: 2 mg Instruction: 0.5 x 4 mg tablets Condition: Wednesday Dose/Route: 4 mg Instruction: 1 x 4 mg tablet Condition: Dose/Route: 2 mg Instruction: 0.5 x 4 mg tablets Condition: Wednesday Dose/Route: 0 mg Instruction: 0 tablets Condition: Wednesday Dose/Route: 2 mg Instruction: 0.5 x 4 mg tablets Condition: Wednesday (Week Two) Dose/Route: 2 mg Instruction: 0.5 x 4 mg tablets Condition: Wednesday Dose/Route: 4 mg Instruction: 1 x 4 mg tablet Condition: Wednesday Dose/Route: 2 mg Instruction: 0.5 x 4 mg tablets Condition: Wednesday Dose/Route: 4 mg Instruction: 1 x 4 mg tablet Condition: Dose/Route: 2 mg Instruction: 0.5 x 4 mg tablets Condition: Wednesday Dose/Route: 4 mg Instruction: 1 x 4 mg tablet Condition: Wednesday Dose/Route: 2 mg Instruction: 0.5 x 4 mg tablets Protocol Text: Adjustment Start Date: Wednesday06/12/22 INR Value: 4.0 INR Date: 06/12/22 Recheck Date: 06/18/22 Rx Instructions: 4mg mwf/ 2mg x4days bisacodyl 5 mg tablet,delayed release (DR/EC) 10 mg PO BEDTIME bisacodyl 5 mg tablet 10 mg PO BEDTIME Qty: 180 0RF docusate sodium 100 mg capsule 100 mg PO BEDTIME Qty: 90 3RF Referrals: Jose E Hubbard MD [Primary Care Provider] - 2 days Interventions: ED Discharge Assessment Last Done: 06/12/22 12:08 Discharge Date/Time: 06/12/22 12:08
[2022-06-12] MEDS: Cyclobenzaprine HCl 10 MG TABLET PO (12:04)
== END 2022-06-12 12:08 | disposition home or self-care (01) ==
PROVIDERS: Emergency Provider Student in an Organized Health Care Education/Training Program; PCP Internal Medicine Medical Oncology
DX: M26.622 Arthralgia of left temporomandibular joint (principal); R79.1 Abnormal coagulation profile; I10 Essential (primary) hypertension; Z86.73 Personal history of transient ischemic attack (TIA), and cerebral infarction without residual deficits; Z79.01 Long term (current) use of anticoagulants; Z79.02 Long term (current) use of antithrombotics/antiplatelets; Z79.899 Other long term (current) drug therapy
CPT/HCPCS: 85610; 99211; 99283

== ENCOUNTER → 2022-06-17 10:01 | Outpatient (BNVA) | payer MEDICARE, MEDICAID, SELFPAY | PROVIDERS: PCP Internal Medicine Medical Oncology; Visit Provider Internal Medicine | DX: I69.30 Unspecified sequelae of cerebral infarction (principal); Z79.01 Long term (current) use of anticoagulants; Z51.81 Encounter for therapeutic drug level monitoring | CPT/HCPCS: 85610; 99211 ==

== ENCOUNTER 2022-07-01 09:56 | Outpatient (REF) | payer MEDICARE, MEDICAID, SELFPAY ==
[2022-07-01 10:52] LABS: MANUAL DIFF FLAG NO
[2022-07-01 12:09] LABS: Basophils Percent Auto 0.4 % (0-2); Eosinophils Absolute Auto 0.1 X10*3/uL (0.0-0.4); Eosinophils Percent Auto 1.3 % (0-4); Hematocrit 43.2 % (37.0-47.0); Hemoglobin 13.3 g/dl (12.0-16.0); Imm Gran Abs Auto 0.02 X10*3/uL (0.00-0.03); Imm Gran Pct Auto 0.3 % (0.0-0.4); Lymphocytes Absolute Auto 1.9 X10*3/uL (1.2-4.9); Lymphocytes Percent Auto 28.1 % (20-40); Mean Corpuscular HGB Conc 30.8 g/dl (31.0-35.0); Mean Corpuscular Hemoglobin 26.7 pg (27.0-33.0); Mean Corpuscular Volume 86.6 fL (80.0-98.0); Mean Platelet Volume 12.2 fL (9.4-12.3); Monocytes Absolute Auto 0.5 X10*3/uL (0.1-1.2); Monocytes Percent Auto 6.7 % (2-11); Neutrophils Absolute Auto 4.4 x10*3/uL (2.0-8.3); Neutrophils Percent Auto 63.2 % (45-73); Platelet Count 267 X10*3/uL (160-400); Red Blood Count 4.99 X10*6/uL (4.20-5.50); Red Cell Distribution Width 15.4 % (11.0-16.0); White Blood Count 6.9 X10*3/uL (4.8-10.8)
[2022-07-01 13:07] LABS: Alanine Aminotransferase 45 U/L (0-31); Albumin Level 3.9 g/dL (3.5-5.0); Alkaline Phosphatase 178 U/L (39-117); Anion Gap 16 (12-20); Aspartate Amino Transferase 41 U/L (5-31); Bilirubin Total 0.4 mg/dL (0.0-1.0); Blood Urea Nitrogen 23 mg/dL (9-16); Calcium 8.4 mg/dL (8.4-10.2); Carbon Dioxide 23 mmol/L (22-29); Chloride 110 mmol/L (96-108); Cholesterol 111 mg/dL; Estimated Glomerular Filt Rate > 60; Glucose Fasting 114 mg/dL (60-99); HDL Cholesterol 42 mg/dL; LDL Cholesterol Calculated 52 mg/dl; Potassium 4.4 mmol/L (3.3-5.1); Sodium 145 mmol/L (135-145); Total Protein 6.6 g/dL (6.5-8.0); Triglycerides 88 mg/dL
== END 2022-07-01 09:57 | disposition home or self-care (01) ==
LOC: HO.LAB 09:56
PROVIDERS: Absent Provider Internal Medicine Medical Oncology; PCP Internal Medicine Medical Oncology; Visit Provider Internal Medicine
DX: M79.7 Fibromyalgia (principal); E66.9 Obesity, unspecified; Z86.73 Personal history of transient ischemic attack (TIA), and cerebral infarction without residual deficits
CPT/HCPCS: 36415; 80053; 80061; 85025; 85610; 99211

== ENCOUNTER → 2022-07-29 09:23 | Outpatient (BNVA) | payer MEDICARE, MEDICAID, SELFPAY | PROVIDERS: PCP Internal Medicine Medical Oncology; Visit Provider Nurse Practitioner Family | DX: I69.351 Hemiplegia and hemiparesis following cerebral infarction affecting right dominant side (principal); Z79.01 Long term (current) use of anticoagulants; Z51.81 Encounter for therapeutic drug level monitoring; K59.04 Chronic idiopathic constipation; K21.9 Gastro-esophageal reflux disease without esophagitis; Z99.3 Dependence on wheelchair | CPT/HCPCS: 85610; 99211; 99212 ==

== ENCOUNTER → 2022-08-05 09:51 | Outpatient (BNVA) | payer MEDICARE, MEDICAID, SELFPAY | PROVIDERS: PCP Internal Medicine Medical Oncology; Visit Provider Internal Medicine | DX: I69.30 Unspecified sequelae of cerebral infarction (principal); Z79.01 Long term (current) use of anticoagulants; Z51.81 Encounter for therapeutic drug level monitoring | CPT/HCPCS: 85610; 99211 ==

== ENCOUNTER 2022-08-12 10:19 | Outpatient (REF) | payer MEDICARE, MEDICAID, SELFPAY ==
--- NOTE | ~2022-08-12 | XR_ITS ---
EXAMINATION: XR CHEST CLINICAL INFORMATION: Exposure to tuberculosis. COMPARISON: Chest x-ray of 07/05/2018 and 03/11/2012. TECHNIQUE: 2 views of the chest were obtained. FINDINGS: Cardiomediastinal silhouette is stable and normal. No abnormal tracheal deviation. The lungs are hypoexpanded with bronchovascular crowding. Similar appearance of the lung parenchyma is noted on the chest x-ray of 07/05/2018. No focal airspace opacities, changes of overt pulmonary edema, pleural effusions or pneumothorax are seen. Regional skeleton is intact. XR/XR chest 2V IMPRESSION: No convincing radiographic evidence of acute pulmonary process. Low lung volumes with bronchovascular crowding. No significant interval change is noted compared to previous x-ray of 07/05/2018.
[2022-08-14 23:33] LABS: TS Negative Control Passed; TS Panel A 1; TS Panel B 2; TS Positive Control Passed; TSpotTB Negative (Negative)
== END 2022-08-12 10:20 | disposition home or self-care (01) ==
LOC: HO.LAB 10:19
PROVIDERS: PCP Internal Medicine Medical Oncology; Visit Provider Internal Medicine Medical Oncology
DX: I69.30 Unspecified sequelae of cerebral infarction (principal); Z20.1 Contact with and (suspected) exposure to tuberculosis; Z51.81 Encounter for therapeutic drug level monitoring; Z79.01 Long term (current) use of anticoagulants
CPT/HCPCS: 36415; 71046; 85610; 86481; 99211

== ENCOUNTER → 2022-08-19 10:04 | Outpatient (BNVA) | payer MEDICARE, MEDICAID, SELFPAY | PROVIDERS: PCP Internal Medicine Medical Oncology; Visit Provider Internal Medicine | DX: I69.30 Unspecified sequelae of cerebral infarction (principal); Z79.01 Long term (current) use of anticoagulants; Z51.81 Encounter for therapeutic drug level monitoring | CPT/HCPCS: 85610; 99211 ==

== ENCOUNTER → 2022-09-02 09:47 | Outpatient (BNVA) | payer MEDICARE, MEDICAID, SELFPAY | PROVIDERS: PCP Internal Medicine Medical Oncology; Visit Provider Internal Medicine | DX: I69.30 Unspecified sequelae of cerebral infarction (principal); Z79.01 Long term (current) use of anticoagulants; Z51.81 Encounter for therapeutic drug level monitoring | CPT/HCPCS: 85610; 99211 ==

== ENCOUNTER 2022-09-04 09:05 | Outpatient (REF) | payer MEDICARE, MEDICAID, SELFPAY ==
--- NOTE | ~2022-09-04 | US_ITS ---
EXAMINATION: US ABDOMEN COMPLETE CLINICAL INFORMATION: Abdominal pain. COMPARISON: Ultrasound abdomen complete dated 09/17/2021 and 05/27/2010. CT abdomen and pelvis with contrast dated 09/13/2012. X-ray abdomen dated 07/31/2010 and 02/27/2009. TECHNIQUE: Real-time imaging of the abdominal viscera. Technically difficult study secondary to the patient's inability to cooperate. FINDINGS: PANCREAS: Normal. ABDOMINAL AORTA: Visualized aorta is normal in caliber however portions are obscured by bowel gas. INFERIOR VENA CAVA: Obscured by bowel gas. LIVER: 1.8 cm simple left hepatic lobe cyst. The liver is normal in size. The liver contour is normal. There is diffuse increased liver parenchymal echogenicity, consistent with infiltrative hepatocellular disease. There is no intrahepatic biliary duct dilatation seen. GALLBLADDER: Limited evaluation of the gallbladder. The gallbladder is physiologically distended without evidence of stones, sludge, polyps, wall thickening or pericholecystic fluid. COMMON BILE DUCT: Normal in caliber measuring 0.6 cm in diameter. RIGHT KIDNEY: Limited views. No hydronephrosis. No renal calculi or focal parenchymal lesions although exam is suboptimal. The kidney measures 9.1 cm in maximum dimension. LEFT KIDNEY: Limited views of the left kidney No hydronephrosis. No renal calculi or focal parenchymal lesions, though the exam is suboptimal and portions of the kidney were not well seen. The kidney measures 7.1 cm in maximum dimension. SPLEEN: Spleen was not seen. FREE FLUID: None. US/US abdomen complete IMPRESSION: Technically limited exam with portions of the abdomen obscured by bowel gas, as detailed above. Increased hepatic echogenicity which can be seen in the setting of hepatic steatosis or underlying liver disease.
== END 2022-09-04 09:06 | disposition home or self-care (01) ==
LOC: HO.US 09:05
PROVIDERS: PCP Internal Medicine Medical Oncology; Visit Provider Internal Medicine Medical Oncology
DX: R10.9 Unspecified abdominal pain (principal)
CPT/HCPCS: 76700

== ENCOUNTER → 2022-09-16 10:24 | Outpatient (BNVA) | payer MEDICARE, MEDICAID, SELFPAY | PROVIDERS: PCP Internal Medicine Medical Oncology; Visit Provider Internal Medicine | DX: I69.30 Unspecified sequelae of cerebral infarction (principal); Z79.01 Long term (current) use of anticoagulants; Z51.81 Encounter for therapeutic drug level monitoring | CPT/HCPCS: 85610; 99211 ==

== ENCOUNTER → 2022-09-30 10:22 | Outpatient (BNVA) | payer MEDICARE, MEDICAID, SELFPAY | PROVIDERS: PCP Internal Medicine Medical Oncology; Visit Provider Internal Medicine | DX: I69.30 Unspecified sequelae of cerebral infarction (principal); Z79.01 Long term (current) use of anticoagulants; Z51.81 Encounter for therapeutic drug level monitoring | CPT/HCPCS: 85610; 99211 ==

== ENCOUNTER 2022-10-01 09:45 | Outpatient (REF) | payer MEDICARE, MEDICAID, SELFPAY ==
[2022-10-01 10:06] LABS: MANUAL DIFF FLAG NO
[2022-10-01 10:32] LABS: Basophils Percent Auto 0.3 % (0-2); Eosinophils Absolute Auto 0.1 X10*3/uL (0.0-0.4); Hematocrit 41.3 % (37.0-47.0); Hemoglobin 12.6 g/dl (12.0-16.0); Imm Gran Abs Auto 0.05 X10*3/uL (0.00-0.03); Imm Gran Pct Auto 0.6 % (0.0-0.4); Lymphocytes Absolute Auto 2.4 X10*3/uL (1.2-4.9); Lymphocytes Percent Auto 27.9 % (20-40); Mean Corpuscular HGB Conc 30.5 g/dl (31.0-35.0); Mean Corpuscular Hemoglobin 26.9 pg (27.0-33.0); Mean Corpuscular Volume 88.2 fL (80.0-98.0); Mean Platelet Volume 11.9 fL (9.4-12.3); Monocytes Absolute Auto 0.7 X10*3/uL (0.1-1.2); Neutrophils Absolute Auto 5.4 x10*3/uL (2.0-8.3); Neutrophils Percent Auto 62.2 % (45-73); Platelet Count 298 X10*3/uL (160-400); Red Blood Count 4.68 X10*6/uL (4.20-5.50); Red Cell Distribution Width 15.5 % (11.0-16.0); White Blood Count 8.7 X10*3/uL (4.8-10.8)
[2022-10-01 11:03] LABS: Cholesterol 99 mg/dL; HDL Cholesterol 37 mg/dL; LDL Cholesterol Calculated 45 mg/dl; Triglycerides 89 mg/dL
== END 2022-10-01 09:46 | disposition home or self-care (01) ==
LOC: HO.LAB 09:45
PROVIDERS: PCP Internal Medicine Medical Oncology; Visit Provider Internal Medicine Medical Oncology
DX: E66.9 Obesity, unspecified (principal)
CPT/HCPCS: 36415; 80061; 85025

== ENCOUNTER → 2022-10-19 10:07 | Outpatient (BNVA) | payer MEDICARE, MEDICAID, SELFPAY | PROVIDERS: PCP Internal Medicine Medical Oncology; Visit Provider Internal Medicine | DX: I69.30 Unspecified sequelae of cerebral infarction (principal); Z79.01 Long term (current) use of anticoagulants; Z51.81 Encounter for therapeutic drug level monitoring | CPT/HCPCS: 85610; 99211 ==

== ENCOUNTER → 2022-11-09 10:25 | Outpatient (BNVA) | payer MEDICARE, MEDICAID, SELFPAY | PROVIDERS: PCP Internal Medicine Medical Oncology; Visit Provider Internal Medicine | DX: I69.30 Unspecified sequelae of cerebral infarction (principal); Z51.81 Encounter for therapeutic drug level monitoring; Z79.01 Long term (current) use of anticoagulants | CPT/HCPCS: 85610; 99211 ==

== ENCOUNTER 2022-11-30 10:18 | Outpatient (AMB) | payer MEDICARE, MEDICAID, SELFPAY ==
--- NOTE | 2022-11-30 10:24 | MHC.OFFVISCO ---
Intake Intake Visit Reasons: Anticoagulation Allergies acetaminophen [Percocet] Allergy (Severe, Verified 11/30/22 10:20) ITCHY RASH oxycodone [Percocet] Allergy (Severe, Verified 11/30/22 10:20) Itching Penicillins [PENICILLINS] Allergy (Intermediate, Verified 11/30/22 10:20) itchy rash naproxen [NAPROXEN] Allergy (Unknown, Verified 11/30/22 10:20) STOMACH PAIN Medication List - Last Reconciled 11/30/22 by Ana Maria Mccullough RN atorvastatin 80 mg PO DAILY bisacodyl 10 mg PO BEDTIME docusate sodium 100 mg PO BEDTIME fluoxetine 20 mg PO DAILY gabapentin 100 mg PO DAILY metoprolol tartrate 25 mg PO BID omeprazole 20 mg PO DAILY warfarin 4 mg See Protocol PO DAILY Nursing Note INR: 2.3- in therapeutic range Medications and supplements reviewed- no changes No changes in health, diet, medications, or supplements, Denies any signs and symptoms of bleeding or bruising or clotting. 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
[2022-11-30 10:26] LABS: Prothrombin Time Whole Bld POC 27.7 sec (11.1-13.5); ~PT, ~INR - Anti Coag Clinic 2.3 (0.9-1.1)
== END 2022-11-30 10:28 | disposition home or self-care (01) ==
LOC: HO.ACS 10:18
PROVIDERS: PCP Internal Medicine Medical Oncology; Visit Provider Internal Medicine
DX: Z79.01 Long term (current) use of anticoagulants (principal)

== ENCOUNTER → 2022-11-30 10:18 | Outpatient (BNVA) | payer MEDICARE, MEDICAID, SELFPAY | PROVIDERS: PCP Internal Medicine Medical Oncology; Visit Provider Internal Medicine | DX: I69.30 Unspecified sequelae of cerebral infarction (principal); Z79.01 Long term (current) use of anticoagulants; Z51.81 Encounter for therapeutic drug level monitoring | CPT/HCPCS: 85610; 99211 ==

== ENCOUNTER 2022-12-21 10:14 | Outpatient (AMB) | payer MEDICARE, MEDICAID, SELFPAY ==
--- NOTE | 2022-12-21 10:28 | MHC.OFFVISCO ---
Intake Intake Visit Reasons: Anticoagulation Allergies acetaminophen [Percocet] Allergy (Severe, Verified 12/21/22 10:24) ITCHY RASH oxycodone [Percocet] Allergy (Severe, Verified 12/21/22 10:24) Itching Penicillins [PENICILLINS] Allergy (Intermediate, Verified 12/21/22 10:24) itchy rash naproxen [NAPROXEN] Allergy (Unknown, Verified 12/21/22 10:24) STOMACH PAIN Medication List - Last Reconciled 12/21/22 by Ana Maria Mccullough RN atorvastatin 80 mg PO DAILY bisacodyl 10 mg PO BEDTIME docusate sodium 100 mg PO BEDTIME fluoxetine 20 mg PO DAILY gabapentin 100 mg PO DAILY metoprolol tartrate 25 mg PO BID omeprazole 20 mg PO DAILY warfarin 4 mg See Protocol PO DAILY Nursing Note INR 3.4-? out of therapeutic range Medications and supplements reviewed Patient status: pt to acs in w/c Medications or supplements: no changes Diet: appetite is good Denies any signs and symptoms of bleeding or clotting or unusual bruising Bleeding, bruising, clotting discussed Nutritional guidance given: eat a green today, no reds for 2 days Dose: 2mg today then cont reg 4mg x 3, 2mg x 4 F/U INR Date : 2 weeks? Patient verbalizing understanding of instructions given. Anti-Coag Initial Assessment Social Hx Patient Tobacco Use Status: Never used Tobacco alcohol intake: never Alcohol intake frequency: does not drink Coding Level of Care Code Est Patient Level 1 Diagnoses Current use of anticoagulant therapy Z79.01 Assessment & Plan Assessment & Plan (1) Current use of anticoagulant therapy: Code(s): Z79.01 - [facility] (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
[2022-12-21 10:30] LABS: Prothrombin Time Whole Bld POC 40.4 sec (11.1-13.5); ~PT, ~INR - Anti Coag Clinic 3.4 (0.9-1.1)
== END 2022-12-21 10:34 | disposition home or self-care (01) ==
LOC: HO.ACS 10:14
PROVIDERS: PCP Internal Medicine Medical Oncology; Visit Provider Internal Medicine
DX: Z79.01 Long term (current) use of anticoagulants (principal)

== ENCOUNTER → 2022-12-21 10:14 | Outpatient (BNVA) | payer MEDICARE, MEDICAID, SELFPAY | PROVIDERS: PCP Internal Medicine Medical Oncology; Visit Provider Internal Medicine | DX: I69.30 Unspecified sequelae of cerebral infarction (principal); Z79.01 Long term (current) use of anticoagulants; Z51.81 Encounter for therapeutic drug level monitoring | CPT/HCPCS: 85610; 99211 ==

== ENCOUNTER 2022-12-31 09:22 | Outpatient (REF) | payer MEDICARE, MEDICAID, SELFPAY ==
[2022-12-31 09:39] LABS: MANUAL DIFF FLAG NO
[2022-12-31 10:00] LABS: Basophils Percent Auto 0.4 % (0-2); Eosinophils Absolute Auto 0.1 X10*3/uL (0.0-0.4); Eosinophils Percent Auto 1.1 % (0-4); Hematocrit 38.6 % (37.0-47.0); Hemoglobin 11.9 g/dl (12.0-16.0); Imm Gran Abs Auto 0.05 X10*3/uL (0.00-0.03); Imm Gran Pct Auto 0.7 % (0.0-0.4); Lymphocytes Absolute Auto 2.1 X10*3/uL (1.2-4.9); Mean Corpuscular HGB Conc 30.8 g/dl (31.0-35.0); Mean Corpuscular Hemoglobin 26.9 pg (27.0-33.0); Mean Corpuscular Volume 87.1 fL (80.0-98.0); Mean Platelet Volume 11.6 fL (9.4-12.3); Monocytes Absolute Auto 0.5 X10*3/uL (0.1-1.2); Monocytes Percent Auto 7.1 % (2-11); Neutrophils Absolute Auto 4.4 x10*3/uL (2.0-8.3); Neutrophils Percent Auto 61.7 % (45-73); Platelet Count 293 X10*3/uL (160-400); Red Blood Count 4.43 X10*6/uL (4.20-5.50); Red Cell Distribution Width 15.7 % (11.0-16.0); White Blood Count 7.1 X10*3/uL (4.8-10.8)
[2022-12-31 10:51] LABS: Alanine Aminotransferase 32 U/L (0-31); Albumin Level 3.7 g/dL (3.5-5.0); Alkaline Phosphatase 175 U/L (39-117); Anion Gap 10 (12-20); Aspartate Amino Transferase 31 U/L (5-31); Bilirubin Total 0.3 mg/dL (0.0-1.0); Blood Urea Nitrogen 23 mg/dL (9-16); Calcium 8.5 mg/dL (8.4-10.2); Carbon Dioxide 28 mmol/L (22-29); Chloride 108 mmol/L (96-108); Cholesterol 99 mg/dL; Estimated Glomerular Filt Rate > 60; Glucose Fasting 138 mg/dL (60-99); HDL Cholesterol 39 mg/dL; LDL Cholesterol Calculated 42 mg/dl; Sodium 142 mmol/L (135-145); Total Protein 6.9 g/dL (6.5-8.0); Triglycerides 90 mg/dL
== END 2022-12-31 09:23 | disposition home or self-care (01) ==
LOC: HO.LAB 09:22
PROVIDERS: PCP Internal Medicine Medical Oncology; Visit Provider Internal Medicine Medical Oncology
DX: I10 Essential (primary) hypertension (principal); E66.01 Morbid (severe) obesity due to excess calories
CPT/HCPCS: 36415; 80053; 80061; 85025

== ENCOUNTER 2023-01-04 10:38 | Outpatient (AMB) | payer MEDICARE, MEDICAID, SELFPAY ==
[2023-01-04 10:49] LABS: Prothrombin Time Whole Bld POC 25.6 sec (11.1-13.5); ~PT, ~INR - Anti Coag Clinic 2.1 (0.9-1.1)
--- NOTE | 2023-01-04 10:54 | MHC.OFFVISCO ---
Intake Intake Visit Reasons: Anticoagulation Allergies acetaminophen [Percocet] Allergy (Severe, Verified 01/04/23 10:43) ITCHY RASH oxycodone [Percocet] Allergy (Severe, Verified 01/04/23 10:43) Itching Penicillins [PENICILLINS] Allergy (Intermediate, Verified 01/04/23 10:43) itchy rash naproxen [NAPROXEN] Allergy (Unknown, Verified 01/04/23 10:43) STOMACH PAIN Medication List - Last Reconciled 01/04/23 by Naa Dinh RN atorvastatin 80 mg PO DAILY bisacodyl 10 mg PO BEDTIME docusate sodium 100 mg PO BEDTIME fluoxetine 20 mg PO DAILY gabapentin 100 mg PO DAILY metoprolol tartrate 25 mg PO BID omeprazole 20 mg PO DAILY warfarin 4 mg See Protocol PO DAILY Nursing Note INR: 2.1 in therapeutic range 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
== END 2023-01-04 10:56 | disposition home or self-care (01) ==
LOC: HO.ACS 10:38
PROVIDERS: PCP Internal Medicine Medical Oncology; Visit Provider Internal Medicine
DX: Z79.01 Long term (current) use of anticoagulants (principal)

== ENCOUNTER → 2023-01-04 10:38 | Outpatient (BNVA) | payer MEDICARE, MEDICAID, SELFPAY | PROVIDERS: PCP Internal Medicine Medical Oncology; Visit Provider Internal Medicine | DX: I69.30 Unspecified sequelae of cerebral infarction (principal); Z79.01 Long term (current) use of anticoagulants; Z51.81 Encounter for therapeutic drug level monitoring | CPT/HCPCS: 85610; 99211 ==

== ENCOUNTER 2023-01-07 11:21 | Outpatient (REF) | payer MEDICARE, MEDICAID, SELFPAY | END 2023-01-07 11:22 | disposition home or self-care (01) | LOC: HO.MAMMO 11:21 | PROVIDERS: Visit Provider Internal Medicine Medical Oncology | DX: Z13.89 Encounter for screening for other disorder (principal) ==

== ENCOUNTER 2023-01-19 09:41 | Outpatient (REF) | payer MEDICARE, MEDICAID, SELFPAY | END 2023-01-19 09:42 | disposition home or self-care (01) | LOC: HO.MAMMO 09:41 | PROVIDERS: PCP Internal Medicine Medical Oncology; Visit Provider Internal Medicine Medical Oncology | DX: Z13.89 Encounter for screening for other disorder (principal) ==

== ENCOUNTER 2023-01-25 09:41 | Outpatient (AMB) | payer MEDICARE, MEDICAID, SELFPAY ==
[2023-01-25 10:16] LABS: Prothrombin Time Whole Bld POC 38.4 sec (11.1-13.5); ~PT, ~INR - Anti Coag Clinic 3.2 (0.9-1.1)
--- NOTE | 2023-01-25 10:23 | MHC.OFFVISCO ---
Intake Intake Visit Reasons: Anticoagulation Allergies acetaminophen [Percocet] Allergy (Severe, Verified 01/25/23 10:10) ITCHY RASH oxycodone [Percocet] Allergy (Severe, Verified 01/25/23 10:10) Itching Penicillins [PENICILLINS] Allergy (Intermediate, Verified 01/25/23 10:10) itchy rash naproxen [NAPROXEN] Allergy (Unknown, Verified 01/25/23 10:10) STOMACH PAIN Medication List - Last Reconciled 01/25/23 by Naa iDnh RN atorvastatin 80 mg PO DAILY bisacodyl 10 mg PO BEDTIME diazepam 5 mg PO BID PRN docusate sodium 100 mg PO BEDTIME fluoxetine 20 mg PO DAILY gabapentin 100 mg PO DAILY metoprolol tartrate 25 mg PO BID omeprazole 20 mg PO DAILY warfarin 4 mg See Protocol PO DAILY Nursing Note INR: 3.2 almost in therapeutic range Medications and supplements reviewed may have had less greens and more reds this past week with the heat Denies any signs and symptoms of bleeding or bruising or clotting. Bleeding, bruising, clotting discussed Nutritional guidance given -cooked greens or more greens when eating less with hot weather Dose: keep same 4mg x 3 days / 2mg x 4 days F/U INR: 3 weeks Patient verbalizes understanding of instructions given Anti-Coag Initial Assessment Social Hx Patient Tobacco Use Status: Never used Tobacco alcohol intake: never Alcohol intake frequency: does not drink Coding Level of Care Code Est Patient Level 1 Diagnoses Current use of anticoagulant therapy Z79.01 Assessment & Plan Assessment & Plan (1) Current use of anticoagulant therapy: Code(s): Z79.01 - [facility] (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
== END 2023-01-25 10:27 | disposition home or self-care (01) ==
LOC: HO.ACS 09:41
PROVIDERS: PCP Internal Medicine Medical Oncology; Visit Provider Internal Medicine
DX: Z79.01 Long term (current) use of anticoagulants (principal)

== ENCOUNTER → 2023-01-25 09:41 | Outpatient (BNVA) | payer MEDICARE, MEDICAID, SELFPAY | PROVIDERS: PCP Internal Medicine Medical Oncology; Visit Provider Internal Medicine | DX: I69.30 Unspecified sequelae of cerebral infarction (principal); Z79.01 Long term (current) use of anticoagulants; Z51.81 Encounter for therapeutic drug level monitoring | CPT/HCPCS: 85610; 99211 ==

== ENCOUNTER 2023-02-15 09:50 | Outpatient (AMB) | payer MEDICARE, MEDICAID, SELFPAY ==
[2023-02-15 10:03] LABS: Prothrombin Time Whole Bld POC 24.6 sec (11.1-13.5)
--- NOTE | 2023-02-15 10:06 | MHC.OFFVISCO ---
Intake Intake Visit Reasons: Anticoagulation Allergies acetaminophen [Percocet] Allergy (Severe, Verified 02/15/23 09:56) ITCHY RASH oxycodone [Percocet] Allergy (Severe, Verified 02/15/23 09:56) Itching Penicillins [PENICILLINS] Allergy (Intermediate, Verified 02/15/23 09:56) itchy rash naproxen [NAPROXEN] Allergy (Unknown, Verified 02/15/23 09:56) STOMACH PAIN Medication List - Last Reconciled 02/15/23 by Naa Dinh RN atorvastatin 80 mg PO DAILY bisacodyl 10 mg PO BEDTIME docusate sodium 100 mg PO BEDTIME fluoxetine 20 mg PO DAILY gabapentin 100 mg PO DAILY metoprolol tartrate 25 mg PO BID omeprazole 20 mg PO DAILY warfarin 4 mg See Protocol PO DAILY Nursing Note INR: 2.0 in therapeutic range Medications and supplements reviewed No changes in health, diet, medications, or supplements, Denies any signs and symptoms of bleeding or bruising or clotting. Bleeding, bruising, clotting discussed PT COUGHED UP LARGE AMT OF CLEAR MUCOUS IN OFFICE BUT STATES SHE FEELS FINE, SHE WAS CHEWING GUM AT THE TIME Nutritional guidance given - AVOID GREENS TODAY - THEN EAT A MIX OF FRUITS AND VEGETABLES Dose: KEEP SAME 4MG X 3 DAYS/ 2MG X 4 DAYS F/U INR: 3 WEEKS Patient verbalizes understanding of instructions given Anti-Coag Initial Assessment Social Hx Patient Tobacco Use Status: Never used Tobacco alcohol intake: never Alcohol intake frequency: does not drink Coding Level of Care Code Est Patient Level 1 Diagnoses Current use of anticoagulant therapy Z79.01 Results AMB INR Fingerstick AMB INR Fingerstick 2.0 Last Edit by Naa Dinh RN on 02/15/23 10:03 MANUAL ENTRY DUE TO INTERFACING DELAYS Assessment & Plan Assessment & Plan (1) Current use of anticoagulant therapy: Code(s): Z79.01 - detention (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
== END 2023-02-15 10:09 | disposition home or self-care (01) ==
LOC: HO.ACS 09:50
PROVIDERS: PCP Internal Medicine Medical Oncology; Visit Provider Internal Medicine
DX: Z79.01 Long term (current) use of anticoagulants (principal)

== ENCOUNTER → 2023-02-15 09:50 | Outpatient (BNVA) | payer MEDICARE, MEDICAID, SELFPAY | PROVIDERS: PCP Internal Medicine Medical Oncology; Visit Provider Internal Medicine | DX: I69.90 Unspecified sequelae of unspecified cerebrovascular disease (principal); Z51.81 Encounter for therapeutic drug level monitoring; Z79.01 Long term (current) use of anticoagulants | CPT/HCPCS: 85610; 99211 ==

== ENCOUNTER 2023-02-26 09:48 | Outpatient (AMB) | payer MEDICARE, MEDICAID, SELFPAY ==
[2023-02-26 09:57] LABS: Prothrombin Time Whole Bld POC 24.3 sec (11.1-13.5)
--- NOTE | 2023-02-26 10:00 | MHC.OFFVISCO ---
Intake Intake Visit Reasons: Anticoagulation Allergies acetaminophen [Percocet] Allergy (Severe, Verified 02/26/23 09:51) ITCHY RASH oxycodone [Percocet] Allergy (Severe, Verified 02/26/23 09:51) Itching Penicillins [PENICILLINS] Allergy (Intermediate, Verified 02/26/23 09:51) itchy rash naproxen [NAPROXEN] Allergy (Unknown, Verified 02/26/23 09:51) STOMACH PAIN Medication List - Last Reconciled 02/26/23 by Naa Dinh RN atorvastatin 80 mg PO DAILY bisacodyl 10 mg PO BEDTIME docusate sodium 100 mg PO BEDTIME fluoxetine 20 mg PO DAILY gabapentin 100 mg PO DAILY metoprolol tartrate 25 mg PO BID nirmatrelvir-ritonavir 300 mg (150 mg x 2)-100 mg (Paxlovid) 0 ea PO omeprazole 20 mg PO DAILY warfarin 4 mg See Protocol PO DAILY Nursing Note INR: 2.0 in therapeutic range Medications and supplements reviewed pt and family had covid last week and was on paxlovid x 5 days, states symptoms were just like a cold, feeling better Denies any signs and symptoms of bleeding or bruising or clotting. Bleeding, bruising, clotting discussed Nutritional guidance given - eat orange and reds to help raise the INR Dose: keep same 4mg x 3 days/ 2mg x 4 days F/U INR: 3 weeks Patient verbalizes understanding of instructions given Anti-Coag Initial Assessment Social Hx Patient Tobacco Use Status: Never used Tobacco alcohol intake: never Alcohol intake frequency: does not drink Coding Level of Care Code Est Patient Level 1 Diagnoses Current use of anticoagulant therapy Z79.01 Assessment & Plan Assessment & Plan (1) Current use of anticoagulant therapy: Code(s): Z79.01 - long-term (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
== END 2023-02-26 10:06 | disposition home or self-care (01) ==
LOC: HO.ACS 09:48
PROVIDERS: PCP Internal Medicine Medical Oncology; Visit Provider Internal Medicine
DX: Z79.01 Long term (current) use of anticoagulants (principal)

== ENCOUNTER → 2023-02-26 09:48 | Outpatient (BNVA) | payer MEDICARE, MEDICAID, SELFPAY | PROVIDERS: PCP Internal Medicine Medical Oncology; Visit Provider Internal Medicine | DX: I69.30 Unspecified sequelae of cerebral infarction (principal); Z79.01 Long term (current) use of anticoagulants; Z51.81 Encounter for therapeutic drug level monitoring | CPT/HCPCS: 85610; 99211 ==

== ENCOUNTER 2023-03-08 10:02 | Outpatient (AMB) | payer MEDICARE, MEDICAID, SELFPAY ==
[2023-03-08 10:13] LABS: Prothrombin Time Whole Bld POC 29.3 sec (11.1-13.5); ~PT, ~INR - Anti Coag Clinic 2.4 (0.9-1.1)
--- NOTE | 2023-03-08 10:16 | MHC.OFFVISCO ---
Intake Intake Visit Reasons: Anticoagulation Allergies acetaminophen [Percocet] Allergy (Severe, Verified 03/08/23 10:07) ITCHY RASH oxycodone [Percocet] Allergy (Severe, Verified 03/08/23 10:07) Itching Penicillins [PENICILLINS] Allergy (Intermediate, Verified 03/08/23 10:07) itchy rash naproxen [NAPROXEN] Allergy (Unknown, Verified 03/08/23 10:07) STOMACH PAIN Medication List - Last Reconciled 03/08/23 by Cristine Chanel RN atorvastatin 80 mg PO DAILY bisacodyl 10 mg PO BEDTIME docusate sodium 100 mg PO BEDTIME fluoxetine 20 mg PO DAILY gabapentin 100 mg PO DAILY metoprolol tartrate 25 mg PO BID omeprazole 20 mg PO DAILY warfarin 4 mg See Protocol PO DAILY Nursing Note To [facility] via W/C accomp by FIRESETTER, pt feeling well S/P Covid and Paxlovid Medications and supplements reviewed No other changes in health, diet, medications, or supplements Denies any unusual signs and symptoms of bruising, bleeding Denies any new Chest pain, SOB, or clotting INR: 2.4 in therapeutic range Nutritional guidance given: balance greens and reds in diet Dose: continue usual dosing; 4mg x 3 days and 2mg x 4 days F/U INR: 2 weeks Patient verbalizes understanding of instructions given with accurate read back/ teach back of dosing Anti-Coag Initial Assessment Social Hx Patient Tobacco Use Status: Never used Tobacco alcohol intake: never Alcohol intake frequency: does not drink Coding Level of Care Code Est Patient Level 1 Diagnoses Current use of anticoagulant therapy Z79.01 Time Spent (min) 15 Assessment & Plan Assessment & Plan (1) Current use of anticoagulant therapy: 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
== END 2023-03-08 10:23 | disposition home or self-care (01) ==
LOC: HO.ACS 10:02
PROVIDERS: PCP Internal Medicine Medical Oncology; Visit Provider Internal Medicine
DX: Z79.01 Long term (current) use of anticoagulants (principal)

== ENCOUNTER → 2023-03-08 10:02 | Outpatient (BNVA) | payer MEDICARE, MEDICAID, SELFPAY | PROVIDERS: PCP Internal Medicine Medical Oncology; Visit Provider Internal Medicine | DX: I69.30 Unspecified sequelae of cerebral infarction (principal); Z79.01 Long term (current) use of anticoagulants; Z51.81 Encounter for therapeutic drug level monitoring | CPT/HCPCS: 85610; 99211 ==

== ENCOUNTER 2023-03-19 09:44 | Outpatient (AMB) | payer MEDICARE, MEDICAID, SELFPAY ==
[2023-03-19 09:52] LABS: Prothrombin Time Whole Bld POC 30.4 sec (11.1-13.5); ~PT, ~INR - Anti Coag Clinic 2.5 (0.9-1.1)
--- NOTE | 2023-03-19 09:57 | MHC.OFFVISCO ---
Intake Intake Visit Reasons: Anticoagulation Allergies acetaminophen [Percocet] Allergy (Severe, Verified 03/19/23 09:47) ITCHY RASH oxycodone [Percocet] Allergy (Severe, Verified 03/19/23 09:47) Itching Penicillins [PENICILLINS] Allergy (Intermediate, Verified 03/19/23 09:47) itchy rash naproxen [NAPROXEN] Allergy (Unknown, Verified 03/19/23 09:47) STOMACH PAIN Medication List - Last Reconciled 03/19/23 by Naa Dinh RN atorvastatin 80 mg PO DAILY bisacodyl 10 mg PO BEDTIME docusate sodium 100 mg PO BEDTIME fluoxetine 20 mg PO DAILY gabapentin 100 mg PO DAILY metoprolol tartrate 25 mg PO BID omeprazole 20 mg PO DAILY warfarin 4 mg See Protocol PO DAILY Nursing Note INR: 2.5 in therapeutic range Medications and supplements reviewed No changes in health, diet, medications, or supplements, Denies any signs and symptoms of bleeding or bruising or clotting. Bleeding, bruising, clotting discussed Nutritional guidance given - EAT A MIX OF FRUITS AND VEGETABLES Dose: KEEP SAME 4MG X 3 DAYS/ 2MG X 4 DAYS F/U INR: 3 WEEKS Patient verbalizes understanding of instructions given Anti-Coag Initial Assessment Social Hx Patient Tobacco Use Status: Never used Tobacco alcohol intake: never Alcohol intake frequency: does not drink Coding Level of Care Code Est Patient Level 1 Diagnoses Current use of anticoagulant therapy Z79.01 Assessment & Plan Assessment & Plan (1) Current use of anticoagulant therapy: Code(s): Z79.01 - retirement (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
== END 2023-03-19 09:59 | disposition home or self-care (01) ==
LOC: HO.ACS 09:44
PROVIDERS: PCP Internal Medicine Medical Oncology; Visit Provider Internal Medicine
DX: Z79.01 Long term (current) use of anticoagulants (principal)

== ENCOUNTER → 2023-03-19 09:44 | Outpatient (BNVA) | payer MEDICARE, MEDICAID, SELFPAY | PROVIDERS: PCP Internal Medicine Medical Oncology; Visit Provider Internal Medicine | DX: I69.30 Unspecified sequelae of cerebral infarction (principal); Z79.01 Long term (current) use of anticoagulants; Z51.81 Encounter for therapeutic drug level monitoring | CPT/HCPCS: 85610; 99211 ==

== ENCOUNTER 2023-04-01 09:42 | Outpatient (REF) | payer MEDICARE, MEDICAID, SELFPAY ==
[2023-04-01 10:01] LABS: MANUAL DIFF FLAG NO
[2023-04-01 10:32] LABS: Basophils Percent Auto 0.5 % (0-2); Eosinophils Absolute Auto 0.1 X10*3/uL (0.0-0.4); Eosinophils Percent Auto 1.4 % (0-4); Hematocrit 40.6 % (37.0-47.0); Hemoglobin 12.3 g/dl (12.0-16.0); Imm Gran Abs Auto 0.02 X10*3/uL (0.00-0.03); Imm Gran Pct Auto 0.3 % (0.0-0.4); Lymphocytes Percent Auto 30.8 % (20-40); Mean Corpuscular HGB Conc 30.3 g/dl (31.0-35.0); Mean Corpuscular Hemoglobin 26.2 pg (27.0-33.0); Mean Corpuscular Volume 86.6 fL (80.0-98.0); Monocytes Absolute Auto 0.5 X10*3/uL (0.1-1.2); Neutrophils Absolute Auto 3.9 x10*3/uL (2.0-8.3); Platelet Count 285 X10*3/uL (160-400); Red Blood Count 4.69 X10*6/uL (4.20-5.50); Red Cell Distribution Width 15.5 % (11.0-16.0); White Blood Count 6.6 X10*3/uL (4.8-10.8)
[2023-04-01 10:45] LABS: Estimated Average Glucose 166 mg/dL; Hemoglobin A1c % 7.4 % (<6.0)
[2023-04-01 11:00] LABS: Alanine Aminotransferase 41 U/L (0-31); Albumin Level 3.9 g/dL (3.5-5.0); Alkaline Phosphatase 165 U/L (39-117); Anion Gap 11 (12-20); Aspartate Amino Transferase 36 U/L (5-31); Bilirubin Total 0.3 mg/dL (0.0-1.0); Blood Urea Nitrogen 17 mg/dL (9-16); Calcium 8.6 mg/dL (8.4-10.2); Carbon Dioxide 28 mmol/L (22-29); Chloride 108 mmol/L (96-108); Cholesterol 100 mg/dL (<200); Estimated Glomerular Filt Rate > 60; Glucose Fasting 144 mg/dL (60-99); HDL Cholesterol 37 mg/dL (>40); LDL Cholesterol Calculated 44 mg/dL (<100); Potassium 4.2 mmol/L (3.3-5.1); Sodium 143 mmol/L (135-145); Triglycerides 95 mg/dL (<150)
[2023-04-01 12:02] LABS: Creatinine Urine 103.27 mg/dL; Microalbum/Creatinine Ratio Ur 10.6 ug/mg cr (<30)
== END 2023-04-01 09:43 | disposition home or self-care (01) ==
LOC: HO.LAB 09:42
PROVIDERS: PCP Internal Medicine Medical Oncology; Visit Provider Internal Medicine Medical Oncology
DX: I10 Essential (primary) hypertension (principal); R73.9 Hyperglycemia, unspecified; E66.01 Morbid (severe) obesity due to excess calories
CPT/HCPCS: 36415; 80053; 80061; 82043; 82570; 83036; 85025

== ENCOUNTER 2023-04-13 09:53 | Outpatient (AMB) | payer MEDICARE, MEDICAID, SELFPAY ==
--- NOTE | 2023-04-13 10:00 | MHC.OFFVISCO ---
Intake Intake Visit Reasons: Anticoagulation Allergies acetaminophen [Percocet] Allergy (Severe, Verified 04/13/23 09:55) ITCHY RASH oxycodone [Percocet] Allergy (Severe, Verified 04/13/23 09:55) Itching Penicillins [PENICILLINS] Allergy (Intermediate, Verified 04/13/23 09:55) itchy rash naproxen [NAPROXEN] Allergy (Unknown, Verified 04/13/23 09:55) STOMACH PAIN Medication List - Last Reconciled 04/13/23 by Ana Maria Mccullough RN atorvastatin 80 mg PO DAILY bisacodyl 10 mg PO BEDTIME docusate sodium 100 mg PO BEDTIME fluoxetine 20 mg PO DAILY gabapentin 100 mg PO DAILY metoprolol tartrate 25 mg PO BID omeprazole 20 mg PO DAILY warfarin 4 mg See Protocol PO DAILY Nursing Note INR: 2.2- in therapeutic range of 2-3 Medications and supplements reviewed- no changes No changes in health, diet, medications, or supplements, Denies any signs and symptoms of bleeding or bruising or clotting. Bleeding, bruising, clotting discussed Nutritional guidance given Dose: 4mg x 3, 2mg x 4 F/U INR: pt req 4 weeks Patient verbalizes understanding of instructions given pt to acs in w/c acompanied by sylvie Garcia-Greg Initial Assessment Social Hx Patient Tobacco Use Status: Never used Tobacco alcohol intake: never Alcohol intake frequency: does not drink Coding Level of Care Code Est Patient Level 1
[2023-04-13 10:01] LABS: Prothrombin Time Whole Bld POC 26.2 sec (11.1-13.5); ~PT, ~INR - Anti Coag Clinic 2.2 (0.9-1.1)
== END 2023-04-13 10:09 | disposition home or self-care (01) ==
LOC: HO.ACS 09:53
PROVIDERS: PCP Internal Medicine Medical Oncology; Visit Provider Internal Medicine
DX: Z79.01 Long term (current) use of anticoagulants (principal)

== ENCOUNTER → 2023-04-13 09:53 | Outpatient (BNVA) | payer MEDICARE, MEDICAID, SELFPAY | PROVIDERS: PCP Internal Medicine Medical Oncology; Visit Provider Internal Medicine | DX: I69.30 Unspecified sequelae of cerebral infarction (principal); Z51.81 Encounter for therapeutic drug level monitoring; Z79.01 Long term (current) use of anticoagulants | CPT/HCPCS: 85610; 99211 ==

== ENCOUNTER 2023-05-11 09:49 | Outpatient (AMB) | payer MEDICARE, MEDICAID, SELFPAY ==
[2023-05-11 09:58] LABS: Prothrombin Time Whole Bld POC 35.3 sec (11.1-13.5); ~PT, ~INR - Anti Coag Clinic 2.9 (0.9-1.1)
--- NOTE | 2023-05-11 10:01 | MHC.OFFVISCO ---
Intake Intake Visit Reasons: Anticoagulation Allergies acetaminophen [Percocet] Allergy (Severe, Verified 05/11/23 09:52) ITCHY RASH oxycodone [Percocet] Allergy (Severe, Verified 05/11/23 09:52) Itching Penicillins [PENICILLINS] Allergy (Intermediate, Verified 05/11/23 09:52) itchy rash naproxen [NAPROXEN] Allergy (Unknown, Verified 05/11/23 09:52) STOMACH PAIN Medication List - Last Reconciled 05/11/23 by Cristine Chanel RN atorvastatin 80 mg PO DAILY bisacodyl 10 mg PO BEDTIME docusate sodium 100 mg PO BEDTIME fluoxetine 20 mg PO DAILY gabapentin 100 mg PO DAILY metoprolol tartrate 25 mg PO BID omeprazole 20 mg PO DAILY warfarin 4 mg See Protocol PO DAILY Nursing Note To ACS via WC accomp by family member/MOLD FILLER feeling well Medications and supplements reviewed No changes in health, diet, medications, or supplements Denies any unusual signs and symptoms of bruising, bleeding Denies any new Chest pain, SOB, or clotting INR: 2.6 in therapeutic range Nutritional guidance given: balance greens and reds in diet, be consistent Dose: continue usual dosing;4mg x 3 days and 2mg x 4 days F/U INR: 2 weeks per MOLD FILLER req Patient verbalizes understanding of instructions given with accurate read back/ teach back of dosing Anti-Coag Initial Assessment Social Hx Patient Tobacco Use Status: Never used Tobacco alcohol intake: never Alcohol intake frequency: does not drink Coding Level of Care Code Est Patient Level 1 Diagnoses Current use of anticoagulant therapy Z79.01 Time Spent (min) 15 Assessment & Plan Assessment & Plan (1) Current use of anticoagulant therapy: Code(s): Z79.01 - [facility] (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
== END 2023-05-11 10:04 | disposition home or self-care (01) ==
LOC: HO.ACS 09:49
PROVIDERS: PCP Internal Medicine Medical Oncology; Visit Provider Internal Medicine
DX: Z79.01 Long term (current) use of anticoagulants (principal)

== ENCOUNTER → 2023-05-11 09:49 | Outpatient (BNVA) | payer MEDICARE, MEDICAID, SELFPAY | PROVIDERS: PCP Internal Medicine Medical Oncology; Visit Provider Internal Medicine | DX: I69.30 Unspecified sequelae of cerebral infarction (principal); Z51.81 Encounter for therapeutic drug level monitoring; Z79.01 Long term (current) use of anticoagulants | CPT/HCPCS: 85610; 99211 ==

== ENCOUNTER 2023-05-25 09:44 | Outpatient (AMB) | payer MEDICARE, MEDICAID, SELFPAY ==
--- NOTE | 2023-05-25 09:51 | MHC.OFFVISCO ---
Intake Intake Visit Reasons: Anticoagulation Allergies acetaminophen [Percocet] Allergy (Severe, Verified 05/25/23 09:47) ITCHY RASH oxycodone [Percocet] Allergy (Severe, Verified 05/25/23 09:47) Itching Penicillins [PENICILLINS] Allergy (Intermediate, Verified 05/25/23 09:47) itchy rash naproxen [NAPROXEN] Allergy (Unknown, Verified 05/25/23 09:47) STOMACH PAIN Medication List - Last Reconciled 05/25/23 by Ana Maria Mccullough RN atorvastatin 80 mg PO DAILY bisacodyl 10 mg PO BEDTIME docusate sodium 100 mg PO BEDTIME fluoxetine 20 mg PO DAILY gabapentin 100 mg PO DAILY metoprolol tartrate 25 mg PO BID omeprazole 20 mg PO DAILY warfarin 4 mg See Protocol PO DAILY Nursing Note INR: 2.4- in therapeutic range of 2-3 Medications and supplements reviewed- no changes No changes in health, diet, medications, or supplements, Denies any signs and symptoms of bleeding or bruising or clotting. Bleeding, bruising, clotting discussed Nutritional guidance given Dose: 4mg x 3, 2mg x 4 F/U INR: 3 weeks Patient verbalizes understanding of instructions given Anti-Coag Initial Assessment Social Hx Patient Tobacco Use Status: Never used Tobacco alcohol intake: never Alcohol intake frequency: does not drink Coding Level of Care Code Est Patient Level 1 Diagnoses Current use of anticoagulant therapy Z79.01 Assessment & Plan Assessment & Plan (1) Current use of anticoagulant therapy: Code(s): Z79.01 - [facility] (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
[2023-05-25 09:52] LABS: Prothrombin Time Whole Bld POC 29.1 sec (11.1-13.5); ~PT, ~INR - Anti Coag Clinic 2.4 (0.9-1.1)
== END 2023-05-25 10:11 | disposition home or self-care (01) ==
LOC: HO.ACS 09:44
PROVIDERS: PCP Internal Medicine Medical Oncology; Visit Provider Internal Medicine
DX: Z79.01 Long term (current) use of anticoagulants (principal)

== ENCOUNTER → 2023-05-25 09:44 | Outpatient (BNVA) | payer MEDICARE, MEDICAID, SELFPAY | PROVIDERS: PCP Internal Medicine Medical Oncology; Visit Provider Internal Medicine | DX: I69.30 Unspecified sequelae of cerebral infarction (principal); Z79.01 Long term (current) use of anticoagulants; Z51.81 Encounter for therapeutic drug level monitoring | CPT/HCPCS: 85610; 99211 ==

== ENCOUNTER 2023-06-15 10:05 | Outpatient (AMB) | payer MEDICARE, MEDICAID, SELFPAY ==
[2023-06-15 10:16] LABS: ~PT, ~INR - Anti Coag Clinic 2.2 (0.9-1.1)
--- NOTE | 2023-06-15 10:17 | MHC.OFFVISCO ---
Intake Intake Visit Reasons: Anticoagulation Allergies acetaminophen [Percocet] Allergy (Severe, Verified 06/15/23 10:11) ITCHY RASH oxycodone [Percocet] Allergy (Severe, Verified 06/15/23 10:11) Itching Penicillins [PENICILLINS] Allergy (Intermediate, Verified 06/15/23 10:11) itchy rash naproxen [NAPROXEN] Allergy (Unknown, Verified 06/15/23 10:11) STOMACH PAIN Medication List - Last Reconciled 06/15/23 by Ana Maria Mccullough RN atorvastatin 80 mg PO DAILY bisacodyl 10 mg PO BEDTIME docusate sodium 100 mg PO BEDTIME fluoxetine 20 mg PO DAILY gabapentin 100 mg PO DAILY metoprolol tartrate 25 mg PO BID omeprazole 20 mg PO DAILY warfarin 4 mg See Protocol PO DAILY Nursing Note INR: 2.2- in therapeutic range of 2-3 Medications and supplements reviewed- no changes No changes in health, diet, medications, or supplements, Denies any signs and symptoms of bleeding or bruising or clotting. Bleeding, bruising, clotting discussed Nutritional guidance given Dose: 4mg x 3, 2mg x 4 F/U INR: 4 weeks Patient verbalizes understanding of instructions given pt to acs in w/c acompanied by sylvie Barry Initial Assessment Social Hx Patient Tobacco Use Status: Never used Tobacco alcohol intake: never Alcohol intake frequency: does not drink Coding Level of Care Code Est Patient Level 1 Diagnoses Current use of anticoagulant therapy Z79.01 Assessment & Plan Assessment & Plan (1) Current use of anticoagulant therapy: Code(s): Z79.01 - senior living (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
== END 2023-06-15 10:25 | disposition home or self-care (01) ==
LOC: HO.ACS 10:05
PROVIDERS: PCP Internal Medicine Medical Oncology; Visit Provider Internal Medicine
DX: Z79.01 Long term (current) use of anticoagulants (principal)

== ENCOUNTER → 2023-06-15 10:05 | Outpatient (BNVA) | payer MEDICARE, MEDICAID, SELFPAY | PROVIDERS: PCP Internal Medicine Medical Oncology; Visit Provider Internal Medicine | DX: I69.30 Unspecified sequelae of cerebral infarction (principal); Z79.01 Long term (current) use of anticoagulants; Z51.81 Encounter for therapeutic drug level monitoring | CPT/HCPCS: 85610; 99211 ==

== ENCOUNTER 2023-07-02 10:13 | Outpatient (AMB) | payer MEDICARE, MEDICAID, SELFPAY ==
--- NOTE | 2023-07-02 10:34 | MHC.OFFVISCO ---
Intake Intake Visit Reasons: Anticoagulation Allergies acetaminophen [Percocet] Allergy (Severe, Verified 07/02/23 10:31) ITCHY RASH oxycodone [Percocet] Allergy (Severe, Verified 07/02/23 10:31) Itching Penicillins [PENICILLINS] Allergy (Intermediate, Verified 07/02/23 10:31) itchy rash naproxen [NAPROXEN] Allergy (Unknown, Verified 07/02/23 10:31) STOMACH PAIN Medication List - Last Reconciled 07/02/23 by Naa Dinh RN atorvastatin 80 mg PO DAILY bisacodyl 10 mg PO BEDTIME docusate sodium 100 mg PO BEDTIME fluoxetine 20 mg PO DAILY gabapentin 100 mg PO DAILY metoprolol tartrate 25 mg PO BID omeprazole 20 mg PO DAILY warfarin 4 mg See Protocol PO DAILY Nursing Note INR: 2.6 in therapeutic range Medications and supplements reviewed No changes in health, diet, medications, or supplements, Denies any signs and symptoms of bleeding or bruising or clotting. Bleeding, bruising, clotting discussed Nutritional guidance given - REVIEW FOOD LIST WEEKLY Dose: SAME F/U INR:3 WEEKS Patient verbalizes understanding of instructions given Anti-Coag Initial Assessment Social Hx Patient Tobacco Use Status: Never used Tobacco alcohol intake: never Alcohol intake frequency: does not drink Coding Level of Care Code Est Patient Level 1 Diagnoses Current use of anticoagulant therapy Z79.01 Results AMB INR Fingerstick AMB INR Fingerstick 2.6 Last Edit by Naa Dinh RN on 07/02/23 10:37 delayed interfacing Assessment & Plan Assessment & Plan (1) Current use of anticoagulant therapy: Code(s): Z79.01 - [facility] (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
[2023-07-02 10:36] LABS: ~PT, ~INR - Anti Coag Clinic 2.6 (0.9-1.1)
== END 2023-07-02 10:51 | disposition home or self-care (01) ==
LOC: HO.ACS 10:13
PROVIDERS: PCP Internal Medicine Medical Oncology; Visit Provider Internal Medicine
DX: Z79.01 Long term (current) use of anticoagulants (principal)

== ENCOUNTER → 2023-07-02 10:13 | Outpatient (BNVA) | payer MEDICARE, MEDICAID, SELFPAY | PROVIDERS: PCP Internal Medicine Medical Oncology; Visit Provider Internal Medicine | DX: I69.30 Unspecified sequelae of cerebral infarction (principal); Z79.01 Long term (current) use of anticoagulants; Z51.81 Encounter for therapeutic drug level monitoring | CPT/HCPCS: 85610; 99211 ==

== ENCOUNTER 2023-07-07 09:56 | Outpatient (REF) | payer MEDICARE, MEDICAID, SELFPAY ==
[2023-07-07 10:26] LABS: MANUAL DIFF FLAG NO
[2023-07-07 11:03] LABS: Basophils Percent Auto 0.4 % (0-2); Eosinophils Absolute Auto 0.1 X10*3/uL (0.0-0.4); Eosinophils Percent Auto 1.2 % (0-4); Hematocrit 42.8 % (37.0-47.0); Imm Gran Abs Auto 0.04 X10*3/uL (0.00-0.03); Imm Gran Pct Auto 0.5 % (0.0-0.4); Lymphocytes Absolute Auto 2.2 X10*3/uL (1.2-4.9); Lymphocytes Percent Auto 29.2 % (20-40); Mean Corpuscular HGB Conc 30.4 g/dl (31.0-35.0); Mean Corpuscular Hemoglobin 26.1 pg (27.0-33.0); Mean Corpuscular Volume 85.9 fL (80.0-98.0); Mean Platelet Volume 12.2 fL (9.4-12.3); Monocytes Absolute Auto 0.6 X10*3/uL (0.1-1.2); Monocytes Percent Auto 8.1 % (2-11); Neutrophils Absolute Auto 4.5 x10*3/uL (2.0-8.3); Neutrophils Percent Auto 60.6 % (45-73); Platelet Count 190 X10*3/uL (160-400); Red Blood Count 4.98 X10*6/uL (4.20-5.50); Red Cell Distribution Width 15.2 % (11.0-16.0); White Blood Count 7.4 X10*3/uL (4.8-10.8)
[2023-07-07 11:18] LABS: Alanine Aminotransferase 32 U/L (0-31); Alkaline Phosphatase 170 U/L (39-117); Anion Gap 12 (12-20); Aspartate Amino Transferase 33 U/L (5-31); Bilirubin Total 0.3 mg/dL (0.0-1.0); Blood Urea Nitrogen 21 mg/dL (9-16); Calcium 8.6 mg/dL (8.4-10.2); Carbon Dioxide 23 mmol/L (22-29); Chloride 111 mmol/L (96-108); Cholesterol 104 mg/dL (<200); Estimated Glomerular Filt Rate > 60; Glucose Fasting 126 mg/dL (60-99); HDL Cholesterol 35 mg/dL (>40); LDL Cholesterol Calculated 54 mg/dL (<100); Potassium 4.1 mmol/L (3.3-5.1); Sodium 142 mmol/L (135-145); Total Protein 7.5 g/dL (6.5-8.0); Triglycerides 75 mg/dL (<150)
== END 2023-07-07 09:57 | disposition home or self-care (01) ==
LOC: HO.LAB 09:56
PROVIDERS: PCP Internal Medicine Medical Oncology; Visit Provider Internal Medicine Medical Oncology
DX: I63.9 Cerebral infarction, unspecified (principal); I10 Essential (primary) hypertension; E66.01 Morbid (severe) obesity due to excess calories
CPT/HCPCS: 36415; 80053; 80061; 85025

== ENCOUNTER 2023-07-23 10:20 | Outpatient (AMB) | payer MEDICARE, MEDICAID, SELFPAY ==
[2023-07-23 10:29] LABS: Prothrombin Time Whole Bld POC 35.2 sec (11.1-13.5); ~PT, ~INR - Anti Coag Clinic 2.9 (0.9-1.1)
--- NOTE | 2023-07-23 10:35 | MHC.OFFVISCO ---
Intake Intake Visit Reasons: Anticoagulation Allergies acetaminophen [Percocet] Allergy (Severe, Verified 07/23/23 10:24) ITCHY RASH oxycodone [Percocet] Allergy (Severe, Verified 07/23/23 10:24) Itching Penicillins [PENICILLINS] Allergy (Intermediate, Verified 07/23/23 10:24) itchy rash naproxen [NAPROXEN] Allergy (Unknown, Verified 07/23/23 10:24) STOMACH PAIN Nursing Note Pt to ACS in w/c accompanied by son Darryl INR: 2.6 in therapeutic range of 2-3 Medications and supplements reviewed, no changes No changes in health, diet, medications, or supplements, Denies any signs and symptoms of bleeding or bruising or clotting. 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
== END 2023-07-23 10:46 | disposition home or self-care (01) ==
LOC: HO.ACS 10:20
PROVIDERS: PCP Internal Medicine Medical Oncology; Visit Provider Internal Medicine
DX: Z79.01 Long term (current) use of anticoagulants (principal)

== ENCOUNTER → 2023-07-23 10:20 | Outpatient (BNVA) | payer MEDICARE, MEDICAID, SELFPAY | PROVIDERS: PCP Internal Medicine Medical Oncology; Visit Provider Internal Medicine | DX: I69.30 Unspecified sequelae of cerebral infarction (principal); Z79.01 Long term (current) use of anticoagulants; Z51.81 Encounter for therapeutic drug level monitoring | CPT/HCPCS: 85610; 99211 ==

== ENCOUNTER 2023-08-13 09:52 | Outpatient (AMB) | payer MEDICARE, MEDICAID, SELFPAY ==
[2023-08-13 09:57] LABS: Prothrombin Time Whole Bld POC 31.8 sec (11.1-13.5); ~PT, ~INR - Anti Coag Clinic 2.6 (0.9-1.1)
--- NOTE | 2023-08-13 09:58 | MHC.OFFVISCO ---
Intake Intake Visit Reasons: Anticoagulation Allergies acetaminophen [Percocet] Allergy (Severe, Verified 08/13/23 09:53) ITCHY RASH oxycodone [Percocet] Allergy (Severe, Verified 08/13/23 09:53) Itching Penicillins [PENICILLINS] Allergy (Intermediate, Verified 08/13/23 09:53) itchy rash naproxen [NAPROXEN] Allergy (Unknown, Verified 08/13/23 09:53) STOMACH PAIN Medication List - Last Reconciled 08/13/23 by Cristine Giang, RENU atorvastatin 80 mg PO DAILY bisacodyl 10 mg PO BEDTIME docusate sodium 100 mg PO BEDTIME fluoxetine 20 mg PO DAILY gabapentin 100 mg PO DAILY metoprolol tartrate 25 mg PO BID omeprazole 20 mg PO DAILY warfarin 4 mg See Protocol PO DAILY Nursing Note INR: 2.6 in therapeutic range Medications and supplements reviewed: no change No changes in health, diet, medications, or supplements, Denies any signs and symptoms of bleeding or bruising or clotting. Bleeding, bruising, clotting discussed Nutritional guidance given to cont to balance greens and reds Dose: cont usual dose of 4mg X 3 days and 2mg X 4 days F/U INR: 3 weeks Patient verbalizes understanding of instructions given Anti-Coag Initial Assessment Social Hx Patient Tobacco Use Status: Never used Tobacco alcohol intake: never Alcohol intake frequency: does not drink Coding Level of Care Code Est Patient Level 1 Diagnoses Current use of anticoagulant therapy Z79.01 Assessment & Plan Assessment & Plan (1) Current use of anticoagulant therapy: Code(s): Z79.01 - [facility] (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
== END 2023-08-13 10:04 | disposition home or self-care (01) ==
LOC: HO.ACS 09:52
PROVIDERS: PCP Internal Medicine Medical Oncology; Visit Provider Internal Medicine
DX: Z79.01 Long term (current) use of anticoagulants (principal)

== ENCOUNTER → 2023-08-13 09:52 | Outpatient (BNVA) | payer MEDICARE, MEDICAID, SELFPAY | PROVIDERS: PCP Internal Medicine Medical Oncology; Visit Provider Internal Medicine | DX: I69.30 Unspecified sequelae of cerebral infarction (principal); Z79.01 Long term (current) use of anticoagulants; Z51.81 Encounter for therapeutic drug level monitoring | CPT/HCPCS: 85610; 99211 ==

== ENCOUNTER 2023-09-03 09:45 | Outpatient (AMB) | payer MEDICARE, MEDICAID, SELFPAY ==
[2023-09-03 10:09] LABS: Prothrombin Time Whole Bld POC 26.2 sec (11.1-13.5); ~PT, ~INR - Anti Coag Clinic 2.2 (0.9-1.1)
--- NOTE | 2023-09-03 10:13 | MHC.OFFVISCO ---
Intake Intake Visit Reasons: Anticoagulation Allergies acetaminophen [Percocet] Allergy (Severe, Verified 09/03/23 10:05) ITCHY RASH oxycodone [Percocet] Allergy (Severe, Verified 09/03/23 10:05) Itching Penicillins [PENICILLINS] Allergy (Intermediate, Verified 09/03/23 10:05) itchy rash naproxen [NAPROXEN] Allergy (Unknown, Verified 09/03/23 10:05) STOMACH PAIN Medication List - Last Reconciled 09/03/23 by Naa Dinh RN atorvastatin 80 mg PO DAILY bisacodyl 10 mg PO BEDTIME docusate sodium 100 mg PO BEDTIME fluoxetine 20 mg PO DAILY gabapentin 100 mg PO DAILY metoprolol tartrate 25 mg PO BID omeprazole 20 mg PO DAILY warfarin 4 mg See Protocol PO DAILY Nursing Note INR: 2.2 in therapeutic range Medications and supplements reviewed No changes in health, diet, medications, or supplements, Denies any signs and symptoms of bleeding or bruising or clotting. Bleeding, bruising, clotting discussed Nutritional guidance given - EAT A MIX OF FRUITS AND VEGETABLES , REDS AND ORANGE TODAY TO BRING UP A LITTLE- SHE LIKES REGINA Dose: KEEP [id number] X 3 DAYS/ 2MG X 4 DAYS F/U INR: 3 WEEKS Patient verbalizes understanding of instructions given Anti-Coag Initial Assessment Social Hx Patient Tobacco Use Status: Never used Tobacco alcohol intake: never Alcohol intake frequency: does not drink Coding Level of Care Code Est Patient Level 1 Diagnoses Current use of anticoagulant therapy Z79.01 Assessment & Plan Assessment & Plan (1) Current use of anticoagulant therapy: Code(s): 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
== END 2023-09-03 10:17 | disposition home or self-care (01) ==
LOC: HO.ACS 09:45
PROVIDERS: PCP Internal Medicine Medical Oncology; Visit Provider Internal Medicine
DX: Z79.01 Long term (current) use of anticoagulants (principal)

== ENCOUNTER → 2023-09-03 09:45 | Outpatient (BNVA) | payer MEDICARE, MEDICAID, SELFPAY | PROVIDERS: PCP Internal Medicine Medical Oncology; Visit Provider Internal Medicine | DX: I69.90 Unspecified sequelae of unspecified cerebrovascular disease (principal); Z79.01 Long term (current) use of anticoagulants; Z51.81 Encounter for therapeutic drug level monitoring | CPT/HCPCS: 85610; 99211 ==

== ENCOUNTER 2023-09-24 09:50 | Outpatient (AMB) | payer MEDICARE, MEDICAID, SELFPAY ==
[2023-09-24 09:57] LABS: Prothrombin Time Whole Bld POC 37.4 sec (11.1-13.5); ~PT, ~INR - Anti Coag Clinic 3.1 (0.9-1.1)
--- NOTE | 2023-09-24 10:01 | MHC.OFFVISCO ---
Intake Intake Visit Reasons: Anticoagulation Allergies acetaminophen [Percocet] Allergy (Severe, Verified 09/24/23 09:50) ITCHY RASH oxycodone [Percocet] Allergy (Severe, Verified 09/24/23 09:50) Itching Penicillins [PENICILLINS] Allergy (Intermediate, Verified 09/24/23 09:50) itchy rash naproxen [NAPROXEN] Allergy (Unknown, Verified 09/24/23 09:50) STOMACH PAIN Medication List - Last Reconciled 09/24/23 by Naa Dinh RN atorvastatin 80 mg PO DAILY bisacodyl 10 mg PO BEDTIME docusate sodium 100 mg PO BEDTIME fluoxetine 20 mg PO DAILY gabapentin 100 mg PO DAILY metoprolol tartrate 25 mg PO BID omeprazole 20 mg PO DAILY warfarin 4 mg See Protocol PO DAILY Nursing Note INR: 3.1 ALMOST in therapeutic range- HAS HAD SEVERAL FOODS THAT CAN RAISE THE INR : pumpkin and strawberries Medications and supplements reviewed No changes in health, diet, medications, or supplements, Denies any signs and symptoms of bleeding or bruising or clotting. 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
== END 2023-09-24 10:06 | disposition home or self-care (01) ==
LOC: HO.ACS 09:50
PROVIDERS: PCP Internal Medicine Medical Oncology; Visit Provider Internal Medicine
DX: Z79.01 Long term (current) use of anticoagulants (principal)

== ENCOUNTER → 2023-09-24 09:50 | Outpatient (BNVA) | payer MEDICARE, MEDICAID, SELFPAY | PROVIDERS: PCP Internal Medicine Medical Oncology; Visit Provider Internal Medicine | DX: I69.30 Unspecified sequelae of cerebral infarction (principal); Z51.81 Encounter for therapeutic drug level monitoring; Z79.01 Long term (current) use of anticoagulants | CPT/HCPCS: 85610; 99211 ==

== ENCOUNTER 2023-10-15 09:40 | Outpatient (AMB) | payer MEDICARE, MEDICAID, SELFPAY ==
[2023-10-15 09:50] LABS: Prothrombin Time Whole Bld POC 34.2 sec (11.1-13.5); ~PT, ~INR - Anti Coag Clinic 2.9 (0.9-1.1)
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
== END 2023-10-15 10:14 | disposition home or self-care (01) ==
LOC: HO.ACS 09:40
PROVIDERS: PCP Internal Medicine Medical Oncology; Visit Provider Internal Medicine
DX: Z79.01 Long term (current) use of anticoagulants (principal)

== ENCOUNTER → 2023-10-15 09:40 | Outpatient (BNVA) | payer MEDICARE, MEDICAID, SELFPAY | PROVIDERS: PCP Internal Medicine Medical Oncology; Visit Provider Internal Medicine | DX: I69.30 Unspecified sequelae of cerebral infarction (principal); Z79.01 Long term (current) use of anticoagulants; Z51.81 Encounter for therapeutic drug level monitoring | CPT/HCPCS: 85610; 99212 ==

== ENCOUNTER → 2023-11-05 10:20 | Outpatient (BNVA) | payer MEDICARE, MEDICAID, SELFPAY | PROVIDERS: PCP Internal Medicine Medical Oncology; Visit Provider Internal Medicine | DX: I69.30 Unspecified sequelae of cerebral infarction (principal); Z79.01 Long term (current) use of anticoagulants; Z51.81 Encounter for therapeutic drug level monitoring | CPT/HCPCS: 85610; 99211 ==

== ENCOUNTER 2023-12-03 09:53 | Outpatient (AMB) | payer MEDICARE, MEDICAID, SELFPAY ==
[2023-12-03 10:06] LABS: Prothrombin Time Whole Bld POC 43.1 sec (11.1-13.5); ~PT, ~INR - Anti Coag Clinic 3.6 (0.9-1.1)
--- NOTE | 2023-12-03 10:10 | MHC.OFFVISCO ---
Intake Intake Visit Reasons: Anticoagulation Allergies acetaminophen [Percocet] Allergy (Severe, Verified 12/03/23 09:53) ITCHY RASH oxycodone [Percocet] Allergy (Severe, Verified 12/03/23 09:53) Itching Penicillins [PENICILLINS] Allergy (Intermediate, Verified 12/03/23 09:53) itchy rash naproxen [NAPROXEN] Allergy (Unknown, Verified 12/03/23 09:53) STOMACH PAIN Medication List - Last Reconciled 12/03/23 by Cristine Giang RN atorvastatin 80 mg PO DAILY bisacodyl 10 mg PO BEDTIME docusate sodium 100 mg PO BEDTIME fluoxetine 20 mg PO DAILY gabapentin 100 mg PO DAILY metoprolol tartrate 25 mg PO BID omeprazole 20 mg PO DAILY warfarin 4 mg See Protocol PO DAILY Nursing Note INR 3.6?out of therapeutic rangeof 2-3 Medications and supplements reviewed Patient status: usual state of health Medications or supplements: no changes Diet: usual diet but has had more summer vegetables, tomatoes etc Denies any signs and symptoms of bleeding or clotting or unusual bruising Bleeding, bruising, clotting discussed Nutritional guidance given: to avoid summer fruits and tomatoes and to have a serving of greens today and tomorrow Dose: decrease today's dose to 2 mg (4mg) and then resume usual dose of 2 mg X 4 days and 4mg X 3 days F/U INR Date : 2 weeks?? Patient verbalizing understanding of instructions given. 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
== END 2023-12-03 10:15 | disposition home or self-care (01) ==
LOC: HO.ACS 09:53
PROVIDERS: PCP Internal Medicine Medical Oncology; Visit Provider Internal Medicine
DX: Z79.01 Long term (current) use of anticoagulants (principal)

== ENCOUNTER → 2023-12-03 09:53 | Outpatient (BNVA) | payer MEDICARE, MEDICAID, SELFPAY | PROVIDERS: PCP Internal Medicine Medical Oncology; Visit Provider Internal Medicine | DX: I69.30 Unspecified sequelae of cerebral infarction (principal); Z79.01 Long term (current) use of anticoagulants; Z51.81 Encounter for therapeutic drug level monitoring | CPT/HCPCS: 85610; 99211 ==

== ENCOUNTER 2023-12-17 09:54 | Outpatient (AMB) | payer MEDICARE, MEDICAID, SELFPAY ==
[2023-12-17 09:57] LABS: Prothrombin Time Whole Bld POC 40.6 sec (11.1-13.5); ~PT, ~INR - Anti Coag Clinic 3.4 (0.9-1.1)
--- NOTE | 2023-12-17 10:05 | MHC.OFFVISCO ---
Intake Intake Visit Reasons: Anticoagulation Allergies acetaminophen [Percocet] Allergy (Severe, Verified 12/03/23 09:53) ITCHY RASH oxycodone [Percocet] Allergy (Severe, Verified 12/03/23 09:53) Itching Penicillins [PENICILLINS] Allergy (Intermediate, Verified 12/03/23 09:53) itchy rash naproxen [NAPROXEN] Allergy (Unknown, Verified 12/03/23 09:53) STOMACH PAIN Medication List - Last Reconciled 12/17/23 by Naa Dinh RN atorvastatin 80 mg PO DAILY bisacodyl 10 mg PO BEDTIME docusate sodium 100 mg PO BEDTIME fluoxetine 20 mg PO DAILY gabapentin 100 mg PO DAILY metoprolol tartrate 25 mg PO BID omeprazole 20 mg PO DAILY warfarin 4 mg See Protocol PO DAILY Nursing Note INR: 3.4 OUT OF therapeutic range Medications and supplements reviewed- NO CHANGES Pt has been eating more cherries and carrots than usual Denies any signs and symptoms of bleeding or bruising or clotting. 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
== END 2023-12-17 10:12 | disposition home or self-care (01) ==
LOC: HO.ACS 09:54
PROVIDERS: PCP Internal Medicine Medical Oncology; Visit Provider Internal Medicine
DX: Z79.01 Long term (current) use of anticoagulants (principal)

== ENCOUNTER → 2023-12-17 09:54 | Outpatient (BNVA) | payer MEDICARE, MEDICAID, SELFPAY | PROVIDERS: PCP Internal Medicine Medical Oncology; Visit Provider Internal Medicine | DX: I69.30 Unspecified sequelae of cerebral infarction (principal); Z79.01 Long term (current) use of anticoagulants; Z51.81 Encounter for therapeutic drug level monitoring | CPT/HCPCS: 85610; 99211 ==

== ENCOUNTER 2023-12-31 09:41 | Outpatient (AMB) | payer MEDICARE, MEDICAID, SELFPAY ==
[2023-12-31 09:55] LABS: Prothrombin Time Whole Bld POC 42.9 sec (11.1-13.5); ~PT, ~INR - Anti Coag Clinic 3.6 (0.9-1.1)
--- NOTE | 2023-12-31 10:10 | MHC.OFFVISCO ---
Intake Intake Visit Reasons: Anticoagulation Allergies acetaminophen [Percocet] Allergy (Severe, Verified 12/31/23 09:45) ITCHY RASH oxycodone [Percocet] Allergy (Severe, Verified 12/31/23 09:45) Itching Penicillins [PENICILLINS] Allergy (Intermediate, Verified 12/31/23 09:45) itchy rash naproxen [NAPROXEN] Allergy (Unknown, Verified 12/31/23 09:45) STOMACH PAIN Medication List - Last Reconciled 12/31/23 by Anali Louis RN atorvastatin 80 mg PO DAILY bisacodyl 10 mg PO BEDTIME docusate sodium 100 mg PO BEDTIME fluoxetine 20 mg PO DAILY gabapentin 100 mg PO DAILY metoprolol tartrate 25 mg PO BID omeprazole 20 mg PO DAILY warfarin 4 mg See Protocol PO DAILY Nursing Note NO CP,SOB,DIET/MED CHANGES,FALLS OR SX OF BLEEDING. HOLD WARFARIN TODAY THEN REDUCE WEEKLY DOSE AND FOLLOW-UP ON 01/10. GOOD UNDERSTANDING OF DOSING INSTR. 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
== END 2023-12-31 10:11 | disposition home or self-care (01) ==
LOC: HO.ACS 09:41
PROVIDERS: PCP Internal Medicine Medical Oncology; Visit Provider Internal Medicine
DX: Z79.01 Long term (current) use of anticoagulants (principal)

== ENCOUNTER → 2023-12-31 09:41 | Outpatient (BNVA) | payer MEDICARE, MEDICAID, SELFPAY | PROVIDERS: PCP Internal Medicine Medical Oncology; Visit Provider Internal Medicine | DX: I69.30 Unspecified sequelae of cerebral infarction (principal); Z79.01 Long term (current) use of anticoagulants; Z51.81 Encounter for therapeutic drug level monitoring | CPT/HCPCS: 85610; 99211 ==

== ENCOUNTER 2024-01-11 09:38 | Outpatient (AMB) | payer MEDICARE, MEDICAID, SELFPAY ==
[2024-01-11 09:49] LABS: ~PT, ~INR - Anti Coag Clinic 3.1 (0.9-1.1)
--- NOTE | 2024-01-11 09:59 | MHC.OFFVISCO ---
Intake Intake Visit Reasons: Anticoagulation Allergies acetaminophen [Percocet] Allergy (Severe, Verified 01/11/24 09:45) ITCHY RASH oxycodone [Percocet] Allergy (Severe, Verified 01/11/24 09:45) Itching Penicillins [PENICILLINS] Allergy (Intermediate, Verified 01/11/24 09:45) itchy rash naproxen [NAPROXEN] Allergy (Unknown, Verified 01/11/24 09:45) STOMACH PAIN Medication List - Last Reconciled 01/11/24 by Cristine Giang, RENU atorvastatin 80 mg PO DAILY bisacodyl 10 mg PO BEDTIME docusate sodium 100 mg PO BEDTIME fluoxetine 20 mg PO DAILY gabapentin 100 mg PO DAILY metoprolol tartrate 25 mg PO BID omeprazole 20 mg PO DAILY warfarin 4 mg See Protocol PO DAILY Nursing Note Pt to [facility] in W/C accompanied by relative INR: 3.1 in therapeutic range of 2-3 Medications and supplements reviewed No changes in health, diet, medications, or supplements, Denies any signs and symptoms of bleeding or bruising or clotting. 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
== END 2024-01-11 10:01 | disposition home or self-care (01) ==
LOC: HO.ACS 09:38
PROVIDERS: PCP Internal Medicine Medical Oncology; Visit Provider Internal Medicine
DX: Z79.01 Long term (current) use of anticoagulants (principal)

== ENCOUNTER → 2024-01-11 09:38 | Outpatient (BNVA) | payer MEDICARE, MEDICAID, SELFPAY | PROVIDERS: PCP Internal Medicine Medical Oncology; Visit Provider Internal Medicine | DX: I69.30 Unspecified sequelae of cerebral infarction (principal); Z79.01 Long term (current) use of anticoagulants; Z51.81 Encounter for therapeutic drug level monitoring | CPT/HCPCS: 85610; 99211 ==

== ENCOUNTER 2024-01-25 10:02 | Outpatient (AMB) | payer MEDICARE, MEDICAID, SELFPAY ==
[2024-01-25 10:15] LABS: Prothrombin Time Whole Bld POC 26.6 sec (11.1-13.5); ~PT, ~INR - Anti Coag Clinic 2.2 (0.9-1.1)
--- NOTE | 2024-01-25 10:15 | MHC.OFFVISCO ---
Intake Intake Visit Reasons: Anticoagulation Allergies acetaminophen [Percocet] Allergy (Severe, Verified 01/25/24 10:08) ITCHY RASH oxycodone [Percocet] Allergy (Severe, Verified 01/25/24 10:08) Itching Penicillins [PENICILLINS] Allergy (Intermediate, Verified 01/25/24 10:08) itchy rash naproxen [NAPROXEN] Allergy (Unknown, Verified 01/25/24 10:08) STOMACH PAIN Medication List - Last Reconciled 01/25/24 by Ana Maria Mccullough RN atorvastatin 80 mg PO DAILY bisacodyl 10 mg PO BEDTIME docusate sodium 100 mg PO BEDTIME fluoxetine 20 mg PO DAILY gabapentin 100 mg PO DAILY metoprolol tartrate 25 mg PO BID omeprazole 20 mg PO DAILY warfarin 4 mg See Protocol PO DAILY Nursing Note INR: 2.2- in therapeutic range of 2-3 Medications and supplements reviewed- no changes No changes in health, diet, medications, or supplements, Denies any signs and symptoms of bleeding or bruising or clotting. Bleeding, bruising, clotting discussed Nutritional guidance given Dose: 4mg x 2, 2mg x 5 F/U INR: 2 weekly Patient verbalizes understanding of instructions given pt in w/c acompanied by sylvie- increased stress with family issues Anti-Coag Initial Assessment Social Hx Patient Tobacco Use Status: Never used Tobacco alcohol intake: never Alcohol intake frequency: does not drink Coding Level of Care Code Est Patient Level 1 Diagnoses Current use of anticoagulant therapy Z79.01 Assessment & Plan Assessment & Plan (1) Current use of anticoagulant therapy: Code(s): Z79.01 - USP (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
== END 2024-01-25 11:06 | disposition home or self-care (01) ==
LOC: HO.ACS 10:02
PROVIDERS: PCP Internal Medicine Medical Oncology; Visit Provider Internal Medicine
DX: Z79.01 Long term (current) use of anticoagulants (principal)

== ENCOUNTER → 2024-01-25 10:02 | Outpatient (BNVA) | payer MEDICARE, MEDICAID, SELFPAY | PROVIDERS: PCP Internal Medicine Medical Oncology; Visit Provider Internal Medicine | DX: I69.30 Unspecified sequelae of cerebral infarction (principal); Z79.01 Long term (current) use of anticoagulants; Z51.81 Encounter for therapeutic drug level monitoring | CPT/HCPCS: 85610; 99211 ==

== ENCOUNTER 2024-02-08 09:47 | Outpatient (REF) | payer MEDICARE, MEDICAID, SELFPAY ==
[2024-02-08 10:11] LABS: MANUAL DIFF FLAG NO
[2024-02-08 10:43] LABS: Basophils Percent Auto 0.3 % (0-2); Eosinophils Absolute Auto 0.1 X10*3/uL (0.0-0.4); Eosinophils Percent Auto 0.9 % (0-4); Hematocrit 41.2 % (37.0-47.0); Hemoglobin 12.5 g/dl (12.0-16.0); Imm Gran Abs Auto 0.11 X10*3/uL (0.00-0.03); Imm Gran Pct Auto 1.2 % (0.0-0.4); Lymphocytes Absolute Auto 3.2 X10*3/uL (1.2-4.9); Lymphocytes Percent Auto 34.5 % (20-40); Mean Corpuscular HGB Conc 30.3 g/dl (31.0-35.0); Mean Corpuscular Hemoglobin 26.8 pg (27.0-33.0); Mean Corpuscular Volume 88.2 fL (80.0-98.0); Mean Platelet Volume 11.9 fL (9.4-12.3); Monocytes Absolute Auto 0.8 X10*3/uL (0.1-1.2); Monocytes Percent Auto 8.6 % (2-11); Neutrophils Percent Auto 54.5 % (45-73); Platelet Count 231 X10*3/uL (160-400); Red Blood Count 4.67 X10*6/uL (4.20-5.50); Red Cell Distribution Width 15.9 % (11.0-16.0); White Blood Count 9.2 X10*3/uL (4.8-10.8)
[2024-02-08 11:05] LABS: Estimated Average Glucose 169 mg/dL; Hemoglobin A1C 179.9884 umol/L; Hemoglobin A1c % 7.5 % (<6.0)
[2024-02-08 11:16] LABS: Alanine Aminotransferase 35 U/L (0-31); Alkaline Phosphatase 160 U/L (39-117); Anion Gap 11 (12-20); Aspartate Amino Transferase 35 U/L (5-31); Bilirubin Total 0.3 mg/dL (0.0-1.0); Blood Urea Nitrogen 29 mg/dL (9-16); Calcium 8.6 mg/dL (8.4-10.2); Carbon Dioxide 24 mmol/L (22-29); Chloride 112 mmol/L (96-108); Cholesterol 90 mg/dL (<200); Estimated Glomerular Filt Rate > 60; Glucose Fasting 130 mg/dL (60-99); HDL Cholesterol 37 mg/dL (>40); LDL Cholesterol Calculated 38 mg/dL (<100); Potassium 4.3 mmol/L (3.3-5.1); Sodium 143 mmol/L (135-145); Total Protein 7.2 g/dL (6.5-8.0); Triglycerides 75 mg/dL (<150)
== END 2024-02-08 09:48 | disposition home or self-care (01) ==
LOC: HO.LAB 09:47
PROVIDERS: PCP Internal Medicine Medical Oncology; Visit Provider Internal Medicine Medical Oncology
DX: I10 Essential (primary) hypertension (principal); E66.01 Morbid (severe) obesity due to excess calories; E11.9 Type 2 diabetes mellitus without complications; Z79.01 Long term (current) use of anticoagulants
CPT/HCPCS: 36415; 80053; 80061; 83036; 85025; 85610; 99211

== ENCOUNTER 2024-02-08 10:06 | Outpatient (AMB) | payer MEDICARE, MEDICAID, SELFPAY ==
--- NOTE | 2024-02-08 10:30 | MHC.OFFVISCO ---
Intake Intake Visit Reasons: Anticoagulation Allergies acetaminophen [Percocet] Allergy (Severe, Verified 02/08/24 10:25) ITCHY RASH oxycodone [Percocet] Allergy (Severe, Verified 02/08/24 10:25) Itching Penicillins [PENICILLINS] Allergy (Intermediate, Verified 02/08/24 10:25) itchy rash naproxen [NAPROXEN] Allergy (Unknown, Verified 02/08/24 10:25) STOMACH PAIN Medication List - Last Reconciled 02/08/24 by Ana Maria Mccullough RN atorvastatin 80 mg PO DAILY bisacodyl 10 mg PO BEDTIME docusate sodium 100 mg PO BEDTIME fluoxetine 20 mg PO DAILY gabapentin 100 mg PO DAILY metoprolol tartrate 25 mg PO BID omeprazole 20 mg PO DAILY warfarin 4 mg See Protocol PO DAILY Nursing Note INR: 3.0- in therapeutic range of 2-3 Medications and supplements reviewed No changes in health, diet, medications, or supplements, Denies any signs and symptoms of bleeding or bruising or clotting. Bleeding, bruising, clotting discussed Nutritional guidance given - eat greens today and tomm Dose: 4mg x 2, 2mg x 5 F/U INR: 2 weeks Patient verbalizes understanding of instructions given pt had labs today Anti-Coag Initial Assessment Social Hx Patient Tobacco Use Status: Never used Tobacco alcohol intake: never Alcohol intake frequency: does not drink Questionnaires HAS-BLED Does the patient had uncontrolled Hypertension?: No Does the patient have renal disease?: No Does the patient have liver disease?: No Does the patient have a history of stroke?: Yes Has the patient had major bleeding or predisposition to bleeding?: Yes Does the patient have labile INRs?: No Is the patient over 65 years of age?: Yes Is the patient on medications that gives them a predisposition to bleeding?: Yes Does the patient use alcohol?: No HAS-BLED Score: 4 CHADSVASC Age: 66-74 Gender: Female Does the patient have a history of CHF?: No Does the patient have a history of Hypertension?: Yes Does the patient have a history of Stroke/TIA/Thromboembolism?: Yes Does the patient have a history of Vascular Disease (prior [place], PAD or aortic plaque)?: No Does the patient have a history of Diabetes?: No CHADS VACS Score: 5 Jamila Prediction Score Rsk VTE Active Cancer: No Previous VTE, excluding superficial vein thrombosis: No Reduced mobility: Yes Already known Thrombophilic Condition: No With-in last month Trauma and/or Surgery: No Elderly 70 year or older: No Heart and/or Respiratory Failure: No Acute Myocardial infarction and/or Ischemic Stroke: Yes Acute Infection and/or Rheumatologic Disorder: No Obesity (BMI 30 or greater): No Ongoing Hormonal Treatment: No Score: 4 Jamila Score less than 4; Low Risk of VTE Jamila Score 4 or greater; High Risk of VTE Coding Level of Care Code Est Patient Level 1 Diagnoses Current use of anticoagulant therapy Z79.01 Results AMB INR Fingerstick AMB INR Fingerstick 3.0 Last Edit by Ana Maria Mccullough RN on 02/08/24 10:32 interface delay Assessment & Plan Assessment & Plan (1) Current use of anticoagulant therapy: 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
== END 2024-02-08 10:43 | disposition home or self-care (01) ==
LOC: HO.ACS 10:06
PROVIDERS: PCP Internal Medicine Medical Oncology; Visit Provider Internal Medicine
DX: Z79.01 Long term (current) use of anticoagulants (principal)

== ENCOUNTER 2024-02-22 09:59 | Outpatient (AMB) | payer MEDICARE, MEDICAID, SELFPAY ==
[2024-02-22 10:27] LABS: Prothrombin Time Whole Bld POC 28.8 sec (11.1-13.5); ~PT, ~INR - Anti Coag Clinic 2.4 (0.9-1.1)
--- NOTE | 2024-02-22 10:34 | MHC.OFFVISCO ---
Intake Intake Visit Reasons: Anticoagulation Allergies acetaminophen [Percocet] Allergy (Severe, Verified 02/22/24 10:19) ITCHY RASH oxycodone [Percocet] Allergy (Severe, Verified 02/22/24 10:19) Itching Penicillins [PENICILLINS] Allergy (Intermediate, Verified 02/22/24 10:19) itchy rash naproxen [NAPROXEN] Allergy (Unknown, Verified 02/22/24 10:19) STOMACH PAIN Medication List - Last Reconciled 02/22/24 by Naa Dinh RN atorvastatin 80 mg PO DAILY bisacodyl 10 mg PO BEDTIME docusate sodium 100 mg PO BEDTIME fluoxetine 20 mg PO DAILY gabapentin 100 mg PO DAILY metoprolol tartrate 25 mg PO BID omeprazole 20 mg PO DAILY warfarin 4 mg See Protocol PO DAILY Nursing Note INR: 2.4 in therapeutic range Medications and supplements reviewed No changes in health, diet, medications, or supplements, Denies any signs and symptoms of bleeding or bruising or clotting. 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
--- NOTE | 2024-02-22 14:28 | MHC.OFFVISCO ---
Intake Intake Visit Reasons: Anticoagulation Allergies acetaminophen [Percocet] Allergy (Severe, Verified 02/22/24 10:19) ITCHY RASH oxycodone [Percocet] Allergy (Severe, Verified 02/22/24 10:19) Itching Penicillins [PENICILLINS] Allergy (Intermediate, Verified 02/22/24 10:19) itchy rash naproxen [NAPROXEN] Allergy (Unknown, Verified 02/22/24 10:19) STOMACH PAIN Medication List - Last Reconciled 02/22/24 by Naa Dinh RN atorvastatin 80 mg PO DAILY bisacodyl 10 mg PO BEDTIME docusate sodium 100 mg PO BEDTIME fluoxetine 20 mg PO DAILY gabapentin 100 mg PO DAILY metoprolol tartrate 25 mg PO BID omeprazole 20 mg PO DAILY warfarin 4 mg See Protocol PO DAILY Nursing Note INR: 2.4 in therapeutic range Medications and supplements reviewed No changes in med Darryl her nephew who isher TAX ECONOMIST, is afraid of her getting up at night with out him, It was explained to her, that if she falls and hit her head it could be dangerous that she could be bleed or hurt herself other ways, she was enc that maybe she call for help by ringing a grant and use her cane when she gets up. It was enc that they put a chair or commode and a night light by her bed. She uses a cane at home during the day. He was also concerned about her blood sugar and checked while she was here it was elevated 242 but she just ate before coming- he was enc to discuss with md. Denies any signs and symptoms of bleeding or bruising or clotting. Bleeding, bruising, clotting discussed Nutritional guidance given Dose: 4MG X 2 DAYS/ 2MG X 5 DAYS F/U INR: 3 WEEKS Patient verbalizes understanding of instructions given Anti-Coag Initial Assessment Social Hx Patient Tobacco Use Status: Never used Tobacco alcohol intake: never Alcohol intake frequency: does not drink Questionnaires HAS-BLED Does the patient had uncontrolled Hypertension?: No Does the patient have renal disease?: No Does the patient have liver disease?: No Does the patient have a history of stroke?: Yes Has the patient had major bleeding or predisposition to bleeding?: Yes Does the patient have labile INRs?: No Is the patient over 65 years of age?: Yes Is the patient on medications that gives them a predisposition to bleeding?: Yes Does the patient use alcohol?: No HAS-BLED Score: 4 CHADSVASC Age: 66-74 Gender: Female Does the patient have a history of CHF?: No Does the patient have a history of Hypertension?: Yes Does the patient have a history of Stroke/TIA/Thromboembolism?: Yes Does the patient have a history of Vascular Disease (prior [place], PAD or aortic plaque)?: No Does the patient have a history of Diabetes?: No CHADS VACS Score: 5 Jamila Prediction Score Rsk VTE Active Cancer: No Previous VTE, excluding superficial vein thrombosis: No Reduced mobility: Yes Already known Thrombophilic Condition: No With-in last month Trauma and/or Surgery: No Elderly 70 year or older: No Heart and/or Respiratory Failure: No Acute Myocardial infarction and/or Ischemic Stroke: Yes Acute Infection and/or Rheumatologic Disorder: No Obesity (BMI 30 or greater): Yes Ongoing Hormonal Treatment: No Score: 5 Jamila Score less than 4; Low Risk of VTE Jamila Score 4 or greater; High Risk of VTE Coding Level of Care Code Est Patient Level 1 Diagnoses Current use of anticoagulant therapy Z79.01 Assessment & Plan Assessment & Plan (1) Current use of anticoagulant therapy: Code(s): Z79.01 - senior care (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
== END 2024-02-22 10:35 | disposition home or self-care (01) ==
LOC: HO.ACS 09:59
PROVIDERS: PCP Internal Medicine Medical Oncology; Visit Provider Internal Medicine
DX: Z79.01 Long term (current) use of anticoagulants (principal)

== ENCOUNTER → 2024-02-22 09:59 | Outpatient (BNVA) | payer MEDICARE, MEDICAID, SELFPAY | PROVIDERS: PCP Internal Medicine Medical Oncology; Visit Provider Internal Medicine | DX: I69.30 Unspecified sequelae of cerebral infarction (principal); Z79.01 Long term (current) use of anticoagulants; Z51.81 Encounter for therapeutic drug level monitoring | CPT/HCPCS: 85610; 99211 ==

== ENCOUNTER 2024-03-14 10:04 | Outpatient (AMB) | payer MEDICARE, MEDICAID, SELFPAY ==
[2024-03-14 10:30] LABS: Prothrombin Time Whole Bld POC 30.7 sec (11.1-13.5); ~PT, ~INR - Anti Coag Clinic 2.6 (0.9-1.1)
--- NOTE | 2024-03-14 10:36 | MHC.OFFVISCO ---
Intake Intake Visit Reasons: Anticoagulation Allergies acetaminophen [Percocet] Allergy (Severe, Verified 03/14/24 10:24) ITCHY RASH oxycodone [Percocet] Allergy (Severe, Verified 03/14/24 10:24) Itching Penicillins [PENICILLINS] Allergy (Intermediate, Verified 03/14/24 10:24) itchy rash naproxen [NAPROXEN] Allergy (Unknown, Verified 03/14/24 10:24) STOMACH PAIN Medication List - Last Reconciled 03/14/24 by Cristine Chanel RN atorvastatin 80 mg PO DAILY bisacodyl 10 mg PO BEDTIME docusate sodium 100 mg PO BEDTIME fluoxetine 20 mg PO DAILY gabapentin 100 mg PO DAILY metoprolol tartrate 25 mg PO BID omeprazole 20 mg PO DAILY warfarin 4 mg See Protocol PO DAILY Nursing Note To [facility] via W/C accomp by nephew (DIALYSIS EQUIPMENT TECHNICIAN) Medications and supplements reviewed nephew indicated pt will be completing clindamycin for infected tooth today (no warfarin interaction) sts she will be having tooth extraction on March 27, nephew is not aware of any hold, is requesting an INR the day before lengthy discussion regarding need to get actual instructions from the Dentist for hold (if indicated) and INR check sts he has been giving her blueberries and [place] to act as greens as she has been taking more tylenol than usual sts now that she has been on antibiotic, no more tooth pain, decrease in tylenol No other changes in health, diet, medications, or supplements, Denies any signs and symptoms of bleeding or bruising or clotting. Bleeding, bruising, clotting discussed INR: 2.6 in therapeutic range Dose: continue usual dose 4mg x 2 days and 2mg x 5 days- CALL US WITH ANY WARFARIN INSTRUCTIONS FROM DENTIST F/U INR: 2 weeks ( nephew was not available for 03/27 day before tooth extraction INR- appointment made for 0900 in [facility], Dentist is 1000) Patient and nephew verbalizes understanding of instructions given Anti-Coag Initial Assessment Social Hx Patient Tobacco Use Status: Never used Tobacco alcohol intake: never Alcohol intake frequency: does not drink Coding Level of Care Code Est Patient Level 1 Diagnoses Current use of anticoagulant therapy Z79.01 Time Spent (min) 15 Assessment & Plan Assessment & Plan (1) Current use of anticoagulant therapy: 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
== END 2024-03-14 13:16 | disposition home or self-care (01) ==
LOC: HO.ACS 10:04
PROVIDERS: PCP Internal Medicine Medical Oncology; Visit Provider Internal Medicine
DX: Z79.01 Long term (current) use of anticoagulants (principal)

== ENCOUNTER → 2024-03-14 10:04 | Outpatient (BNVA) | payer MEDICARE, MEDICAID, SELFPAY | PROVIDERS: PCP Internal Medicine Medical Oncology; Visit Provider Internal Medicine | DX: I69.30 Unspecified sequelae of cerebral infarction (principal); Z79.01 Long term (current) use of anticoagulants; Z51.81 Encounter for therapeutic drug level monitoring | CPT/HCPCS: 85610; 99211 ==

== ENCOUNTER 2024-03-28 08:46 | Outpatient (AMB) | payer MEDICARE, MEDICAID, SELFPAY ==
--- NOTE | 2024-03-28 08:57 | MHC.OFFVISCO ---
Intake Intake Visit Reasons: Anticoagulation Allergies acetaminophen [Percocet] Allergy (Severe, Verified 03/28/24 08:52) ITCHY RASH oxycodone [Percocet] Allergy (Severe, Verified 03/28/24 08:52) Itching Penicillins [PENICILLINS] Allergy (Intermediate, Verified 03/28/24 08:52) itchy rash naproxen [NAPROXEN] Allergy (Unknown, Verified 03/28/24 08:52) STOMACH PAIN Medication List - Last Reconciled 03/28/24 by Ana Maria Mccullough, RN atorvastatin 80 mg PO DAILY bisacodyl 10 mg PO BEDTIME docusate sodium 100 mg PO BEDTIME fluoxetine 20 mg PO DAILY gabapentin 100 mg PO DAILY metoprolol tartrate 25 mg PO BID omeprazole 20 mg PO DAILY warfarin 4 mg See Protocol PO DAILY Nursing Note INR: 2.4- in therapeutic range of 2-3 Medications and supplements reviewed- no changes No changes in health, diet, medications, or supplements, Denies any signs and symptoms of bleeding or bruising or clotting. 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 pt to acs by w/c. he states pt scheduled for dental extraction today x 2. no hold for warfarin sylvie will bring acs paperwork to appt today and make dentist aware of poc inr. 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
[2024-03-28 08:58] LABS: Prothrombin Time Whole Bld POC 29.2 sec (11.1-13.5); ~PT, ~INR - Anti Coag Clinic 2.4 (0.9-1.1)
== END 2024-03-28 09:05 | disposition home or self-care (01) ==
LOC: HO.ACS 08:46
PROVIDERS: PCP Internal Medicine Medical Oncology; Visit Provider Internal Medicine
DX: Z79.01 Long term (current) use of anticoagulants (principal)

== ENCOUNTER → 2024-03-28 08:46 | Outpatient (BNVA) | payer MEDICARE, MEDICAID, SELFPAY | PROVIDERS: PCP Internal Medicine Medical Oncology; Visit Provider Internal Medicine | DX: I69.30 Unspecified sequelae of cerebral infarction (principal); Z79.01 Long term (current) use of anticoagulants; Z51.81 Encounter for therapeutic drug level monitoring | CPT/HCPCS: 85610; 99211 ==

== ENCOUNTER 2024-04-04 09:45 | Outpatient (AMB) | payer MEDICARE, MEDICAID, SELFPAY ==
--- NOTE | 2024-04-04 09:58 | MHC.OFFVISCO ---
Intake Intake Visit Reasons: Anticoagulation Allergies acetaminophen [Percocet] Allergy (Severe, Verified 04/04/24 10:01) ITCHY RASH oxycodone [Percocet] Allergy (Severe, Verified 04/04/24 10:01) Itching Penicillins [PENICILLINS] Allergy (Intermediate, Verified 04/04/24 10:01) itchy rash naproxen [NAPROXEN] Allergy (Unknown, Verified 04/04/24 10:01) STOMACH PAIN Medication List - Last Reconciled 04/04/24 by Cristine Giang RN atorvastatin 80 mg PO DAILY bisacodyl 10 mg PO BEDTIME docusate sodium 100 mg PO BEDTIME fluoxetine 20 mg PO DAILY gabapentin 100 mg PO DAILY hydralazine 25 mg PO BID metoprolol tartrate 25 mg PO BID omeprazole 20 mg PO DAILY warfarin 4 mg See Protocol PO DAILY Nursing Note INR: 2.4- in therapeutic range of 2-3 Medications and supplements reviewed- no changes No changes in health, diet, medications, or supplements, Denies any signs and symptoms of bleeding or bruising or clotting. Bleeding, bruising, clotting discussed Nutritional guidance given Dose: 4mg x 2, 2mg x 5 F/U INR: 2 weeks' Patient verbalizes understanding of instructions given pt had dental extraction on 03/28/24 x 2, no issues with bleeding or pain pt to acs in w/c acompanied by sylvie Barry Initial Assessment Social Hx Patient Tobacco Use Status: Never used Tobacco alcohol intake: never Alcohol intake frequency: does not drink Coding Level of Care Code Est Patient Level 1 Diagnoses Current use of anticoagulant therapy Z79.01 Results AMB INR Fingerstick AMB INR Fingerstick 2.4 Last Edit by Ana Maria Mccullough RN on 04/04/24 10:01 interface delay Assessment & Plan Assessment & Plan (1) Current use of anticoagulant therapy: Code(s): Z79.01 - residential (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
[2024-04-04 10:00] LABS: Prothrombin Time Whole Bld POC 28.9 sec (11.1-13.5); ~PT, ~INR - Anti Coag Clinic 2.4 (0.9-1.1)
== END 2024-04-04 10:12 | disposition home or self-care (01) ==
LOC: HO.ACS 09:45
PROVIDERS: PCP Internal Medicine Medical Oncology; Visit Provider Internal Medicine
DX: Z79.01 Long term (current) use of anticoagulants (principal)

== ENCOUNTER → 2024-04-04 09:45 | Outpatient (BNVA) | payer MEDICARE, MEDICAID, SELFPAY | PROVIDERS: PCP Internal Medicine Medical Oncology; Visit Provider Internal Medicine | DX: I69.30 Unspecified sequelae of cerebral infarction (principal); Z79.01 Long term (current) use of anticoagulants; Z51.81 Encounter for therapeutic drug level monitoring | CPT/HCPCS: 85610; 99211 ==

== ENCOUNTER 2024-04-18 09:49 | Outpatient (AMB) | payer MEDICARE, MEDICAID, SELFPAY ==
[2024-04-18 09:55] LABS: Prothrombin Time Whole Bld POC 31.6 sec (11.1-13.5); ~PT, ~INR - Anti Coag Clinic 2.6 (0.9-1.1)
--- NOTE | 2024-04-18 10:03 | MHC.OFFVISCO ---
Intake Intake Visit Reasons: Anticoagulation Allergies acetaminophen [Percocet] Allergy (Severe, Verified 04/18/24 09:50) ITCHY RASH oxycodone [Percocet] Allergy (Severe, Verified 04/18/24 09:50) Itching Penicillins [PENICILLINS] Allergy (Intermediate, Verified 04/18/24 09:50) itchy rash naproxen [NAPROXEN] Allergy (Unknown, Verified 04/18/24 09:50) STOMACH PAIN Medication List - Last Reconciled 04/18/24 by Naa Dinh RN acetaminophen ER mg PO atorvastatin 80 mg PO DAILY bisacodyl 10 mg PO BEDTIME chlorhexidine gluconate 0.12% PO docusate sodium 100 mg PO BEDTIME fluoxetine 20 mg PO DAILY gabapentin 100 mg PO DAILY metoprolol tartrate 25 mg PO BID omeprazole 20 mg PO DAILY warfarin 4 mg See Protocol PO DAILY Nursing Note INR: 2.6 in therapeutic range Medications and supplements reviewed No changes in health, diet, medications, or supplements, Denies any signs and symptoms of bleeding or bruising or clotting. Bleeding, bruising, clotting discussed Nutritional guidance given Dose: 4MG X 2 DAYS/ 2MG X 5 DAYS F/U INR: 3 WEEKS Patient verbalizes understanding of instructions given Anti-Coag Initial Assessment Social Hx Patient Tobacco Use Status: Never used Tobacco alcohol intake: never Alcohol intake frequency: does not drink Coding Level of Care Code Est Patient Level 1 Diagnoses Current use of anticoagulant therapy Z79.01 Assessment & Plan Assessment & Plan (1) Current use of anticoagulant therapy: Code(s): Z79.01 - [facility] (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
== END 2024-04-18 10:05 | disposition home or self-care (01) ==
LOC: HO.ACS 09:49
PROVIDERS: PCP Internal Medicine Medical Oncology; Visit Provider Internal Medicine
DX: Z79.01 Long term (current) use of anticoagulants (principal)

== ENCOUNTER → 2024-04-18 09:49 | Outpatient (BNVA) | payer MEDICARE, MEDICAID, SELFPAY | PROVIDERS: PCP Internal Medicine Medical Oncology; Visit Provider Internal Medicine | DX: I69.30 Unspecified sequelae of cerebral infarction (principal); Z79.01 Long term (current) use of anticoagulants; Z51.81 Encounter for therapeutic drug level monitoring | CPT/HCPCS: 85610; 99211 ==

== ENCOUNTER 2024-05-12 09:46 | Outpatient (AMB) | payer MEDICARE, MEDICAID, SELFPAY ==
--- OUTSIDE RECORDS SUMMARY | 2024-05-12 09:56 | XMS_ITS ---
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 Name Role Phone Jose E Hubbard Primary Care Provider REASON FOR VISIT Questioning Patient Social History Sex Assigned At : Social History Observation Description Sex Assigned At Female Encounters Encounter Location Date Provider Diagnosis Jose E Hubbard III, MD [address] [place] [address] [place] [id number] 03/17/2024 Jose E Hubbard Plan Of Treatment Next Appt Details Provider Name:Jose E Hubbard, 07/14/2024 10:00:00 AM, [address] [place] [address] [place], [address], Progress Notes * Malu GARCIADOB:1955 ([age] yo F)Acc No.[id number]:03/17/2024 Patient:?Malu GARCIA :1955???Age:68 Y???Sex:Female [address] [place] [address] * true * Date:? Generated for Printi ng/Kiko/eTransmitting on:?05/12/2024 09:55 AM EST
--- OUTSIDE RECORDS SUMMARY | 2024-05-12 09:56 | XMS_ITS | Patient Health Record ---
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 Role Phone Jose E Hubbard Primary Care Provider [phone] Allergies Allergen (clinical drug ingredient) Drug/Non Drug Allergy documented on EMR Reaction Allergy Type Onset Date Status acetaminophen / oxycodone Percocet Unknown Drug Allergy Active miconazole Monistat 3 burning Drug Allergy Activ e Results Component Value Reference Range Notes RBS/Hemocue glucose Reviewed date:02/16/2024 09:42:15 AM Interpretation: Performing Lab: Notes/Report: RBS 108 INR WHOLE BLOOD POC Reviewed date:05/25/2023 10:59:08 AM Interpretation: Performing Lab:[facility], [address] [place] [phone] Notes/Report: PT, INR - [facility] 2.4 0.9-1.1 METER #: [id number] INTERNATIONAL NORMALIZED RATIO (INR) REFERENCE RANGES Reference Range For patients not on anticoagulant therapy: 0.9 - 1.1 INR ranges for oral anticoagulant therapy: For prevention and treatment of venous thrombosis and pulmonary embolism: 2.0 - 3.0 For acute myocardial infarction with aspirin therapy: 2.0 - 3.0 For acute myocardial infarction without aspirin therapy: 3.0 - 4.0 For patients with mechanical prosthetic heart valves: 2.5 - 3.5 Prothrombin Time Whole Bld P OC Reviewed date:05/25/2023 10:59:08 AM Interpretation: Performing Lab:[facility], [address] [place] [phone] Notes/Report: Prothrombin Time Whole Bld POC 29.1 11.1-13.5 sec INR WHOLE BLOOD POC Reviewed date:06/20/2023 06:17:26 AM Interpretation: Performing Lab:[facility], [address] [place] [phone] Notes/Report: PT, INR - [facility] 2.2 0.9-1.1 METER #: [id number] INTERNATIONAL NORMALIZED RATIO (INR) REFERENCE RANGES Reference Range For patients not on anticoagulant therapy: 0.9 - 1.1 INR ranges for oral anticoagulant therapy: For prevention and treatment of venous thrombosis and pulmonary embolism: 2.0 - 3.0 For acute myocardial infarction with aspirin therapy: 2.0 - 3.0 For acute myocardial infarction without aspirin therapy: 3.0 - 4.0 For patients with mechanical prosthetic heart valves: 2.5 - 3.5 Prothrombin Time Whole Bld P OC Reviewed date:06/20/2023 06:17:26 AM Interpretation: Performing Lab:[facility], [address] [place] [phone] Notes/Report: Prothrombin Time Whole Bld POC 26.0 11.1-13.5 sec INR WHOLE BLOOD POC Reviewed date:07/04/2023 10:11:31 AM Interpretation: Performing Lab:[facility], [address] [place] [phone] Notes/Report: PT, INR - Anti [facility]ag Clinic 2.6 0.9-1.1 METER #: [id number] INTERNATIONAL NORMALIZED RATIO (INR) REFERENCE RANGES Reference Range For patients not on anticoagulant therapy: 0.9 - 1.1 INR ranges for oral anticoagulant therapy: For prevention and treatment of venous thrombosis and pulmonary embolism: 2.0 - 3.0 For acute myocardial infarction with aspirin therapy: 2.0 - 3.0 For acute myocardial infarction without aspirin therapy: 3.0 - 4.0 For patients with mechanical prosthetic heart valves: 2.5 - 3.5 Prothrombin Time Whole Bld P OC Reviewed date:07/04/2023 10:11:31 AM Interpretation: Performing Lab:[facility], [address] [place] [phone] Notes/Report: Prothrombin Time Whole Bld POC 31.0 11.1-13.5 sec Complete Blood Count Auto Di ff Reviewed date:07/13/2023 10:14:35 AM Interpretation: Performing Lab:[facility], [address] [place] [phone] Notes/Report: White Blood Count 7.4 4.8-10.8 X10*3/uL Red Blood Count 4.98 4.20-5.50 X10*6/uL Hemoglobin 13.0 12.0-16.0 g/dl Hematocrit 42.8 37.0-47.0 % Mean Corpuscular Volume 85.9 80.0-98.0 fL Mean Corpuscular Hemoglobin 26.1 27.0-33.0 pg Mean Corpuscular HGB Conc 30.4 31.0-35.0 g/dl Red Cell Distribution Width 15.2 11.0-16.0 % Platelet Count 190 160-400 X10*3/uL Mean Platelet Volume 12.2 9.4-12.3 fL Neutrophils Percent Auto 60.6 45-73 % Imm Gran Pct Auto 0.5 0.0-0.4 % Lymphocytes Percent Auto 29.2 20-40 % Monocytes Percent Auto 8.1 2-11 % Eosinophils Percent Auto 1.2 0-4 % Basophils Percent Auto 0.4 0-2 % NRBC Pct Auto 0.0 0.0-0.2 /100WBC Neutrophils Absolute Auto 4.5 2.0-8.3 x10*3/u L Imm Gran Abs Auto 0.04 0.00-0.03 X10*3/uL Lymphocytes Absolute Auto 2.2 1.2-4.9 X10*3/u L Monocytes Absolute Auto 0.6 0.1-1.2 X10*3/uL Eosinophils Absolute Auto 0.1 0.0-0.4 X10*3/u L Basophils Absolute Auto 0.0 0.0-0.2 X10*3/uL NRBC Abs Auto 0.000 0.0-0.012 X10*3/uL Comprehensive Clarissa. Panel Fa st Reviewed date:07/13/2023 10:14:35 AM Interpretation: Performing Lab:[facility], [address] [place] [phone] Notes/Report: Sodium 142 135-145 mmol/L Potassium 4.1 3.3-5.1 mmol/L Chloride 111 96-108 mmol/L Carbon Dioxide 23 22-29 mmol/L Anion Gap 12 12-20 Blood Urea Nitrogen 21 9-16 mg/dL Creatinine 0.70 0.5-1.4 mg/dL Estimated Glomerular Filt Rate > 60 NOTE: For -Spanish individuals, multiply the result by 1.210. Chronic Kidney Disease: Estimated GFR < 60 mL/min/1.73m2 Severe Kidney Disease: Estimated GFR < 15 mL/min/1.73m2 Glucose Fasting 126 60-99 mg/dL A fasting glucose of 126 mg/dl or greater on more than one occasion is considered diagnostic of diabetes. Calcium 8.6 8.4-10.2 mg/dL Bilirubin Total 0.3 0.0-1.0 mg/dL Aspartate Amino Transferase 33 5-31 U/L Alanine Aminotransferase 32 0-31 U/L Total Protein 7.5 6.5-8.0 g/dL Albumin Level 4.0 3.5-5.0 g/dL Alkaline Phosphatase 170 39-117 U/L Lipid Panel Reviewed date:07/13/2023 10:14:35 AM Interpretation: Performing Lab:[address] [phone] Notes/Report: Triglycerides 75 <150 mg/dL Desirable Triglyceride: less than 150 mg/dL Borderline High Triglyceride 150-199 mg/dL High Triglyceride: 200-499 mg/dL Very High Triglyceride: greater than or equal to 5OO mg/dL Cholesterol 104 <200 mg/dL Desirable Cholesterol: less than 200 mg/dL Borderline High Cholesterol: 200-239 mg/dL High Cholesterol: greater than 239 mg/dL LDL Cholesterol Calculated 54 <100 mg/dL Desirable LDL: less than 100 mg/dL Near Optimal/Above Optimal LDL: 110-129 mg/dL Borderline High LDL: 130-159 mg/dL High LDL: 160-189 mg/dL Very High LDL: greater than or equal to 190 mg/dL HDL Cholesterol 35 >40 mg/dL Desirable HDL: greater than 40 mg/dL Note: This HDL assay may give artificially low results in patients with liver disease. INR WHOLE BLOOD POC Reviewed date:07/25/2023 01:30:52 PM Interpretation: Performing Lab:[facility], [address] [place] [phone] Notes/Report: PT, INR - [facility] 2.9 0.9-1.1 METER #: [id number] INTERNATIONAL NORMALIZED RATIO (INR) REFERENCE RANGES Reference Range For patients not on anticoagulant therapy: 0.9 - 1.1 INR ranges for oral anticoagulant therapy: For prevention and treatment of venous thrombosis and pulmonary embolism: 2.0 - 3.0 For acute myocardial infarction with aspirin therapy: 2.0 - 3.0 For acute myocardial infarction without aspirin therapy: 3.0 - 4.0 For patients with mechanical prosthetic heart valves: 2.5 - 3.5 Prothrombin Time Whole Bld P OC Reviewed date:07/25/2023 01:30:52 PM Interpretation: Performing Lab:[facility], [address] [place] [phone] Notes/Report: Prothrombin Time Whole Bld POC 35.2 11.1-13.5 sec INR WHOLE BLOOD POC Reviewed date:08/14/2023 08:08:00 AM Interpretation: Performing Lab:[facility], [address] [place] [phone] Notes/Report: PT, INR - [facility] 2.6 0.9-1.1 METER #: [id number] INTERNATIONAL NORMALIZED RATIO (INR) REFERENCE RANGES Reference Range For patients not on anticoagulant therapy: 0.9 - 1.1 INR ranges for oral anticoagulant therapy: For prevention and treatment of venous thrombosis and pulmonary embolism: 2.0 - 3.0 For acute myocardial infarction with aspirin therapy: 2.0 - 3.0 For acute myocardial infarction without aspirin therapy: 3.0 - 4.0 For patients with mechanical prosthetic heart valves: 2.5 - 3.5 Prothrombin Time Whole Bld P OC Reviewed date:08/14/2023 08:08:00 AM Interpretation: Performing Lab:[facility], [address] [place] [phone] Notes/Report: Prothrombin Time Whole Bld POC 31.8 11.1-13.5 sec INR WHOLE BLOOD POC Reviewed date:09/03/2023 03:13:16 PM Interpretation: Performing Lab:[facility], [address] [place] [phone] Notes/Report: PT, INR - [facility]ag [facility] 2.2 0.9-1.1 METER #: [id number] INTERNATIONAL NORMALIZED RATIO (INR) REFERENCE RANGES Reference Range For patients not on anticoagulant therapy: 0.9 - 1.1 INR ranges for oral anticoagulant therapy: For prevention and treatment of venous thrombosis and pulmonary embolism: 2.0 - 3.0 For acute myocardial infarction with aspirin therapy: 2.0 - 3.0 For acute myocardial infarction without aspirin therapy: 3.0 - 4.0 For patients with mechanical prosthetic heart valves: 2.5 - 3.5 Prothrombin Time Whole Bld P OC Reviewed date:09/03/2023 03:13:16 PM Interpretation: Performing Lab:[facility], [address] [place] [phone] Notes/Report: Prothrombin Time Whole Bld POC 26.2 11.1-13.5 sec INR WHOLE BLOOD POC Reviewed date:09/26/2023 06:29:56 AM Interpretation: Performing Lab:[facility], [address] [place] [phone] Notes/Report: PT, INR - Anti [facility]ag [facility] 3.1 0.9-1.1 METER #: [id number] INTERNATIONAL NORMALIZED RATIO (INR) REFERENCE RANGES Reference Range For patients not on anticoagulant therapy: 0.9 - 1.1 INR ranges for oral anticoagulant therapy: For prevention and treatment of venous thrombosis and pulmonary embolism: 2.0 - 3.0 For acute myocardial infarction with aspirin therapy: 2.0 - 3.0 For acute myocardial infarction without aspirin therapy: 3.0 - 4.0 For patients with mechanical prosthetic heart valves: 2.5 - 3.5 Prothrombin Time Whole Bld P OC Reviewed date:09/26/2023 06:29:56 AM Interpretation: Performing Lab:[facility], [address] [place] [phone] Notes/Report: Prothrombin Time Whole Bld POC 37.4 11.1-13.5 sec INR WHOLE BLOOD POC Reviewed date:10/15/2023 08:46:13 PM Interpretation: Performing Lab:[facility], [address] [place] [phone] Notes/Report: PT, INR - [facility]ag [facility] 2.9 0.9-1.1 METER #: [id number] INTERNATIONAL NORMALIZED RATIO (INR) REFERENCE RANGES Reference Range For patients not on anticoagulant therapy: 0.9 - 1.1 INR ranges for oral anticoagulant therapy: For prevention and treatment of venous thrombosis and pulmonary embolism: 2.0 - 3.0 For acute myocardial infarction with aspirin therapy: 2.0 - 3.0 For acute myocardial infarction without aspirin therapy: 3.0 - 4.0 For patients with mechanical prosthetic heart valves: 2.5 - 3.5 Prothrombin Time Whole Bld P OC Reviewed date:10/15/2023 08:46:13 PM Interpretation: Performing Lab:[facility], [address] [place] [phone] Notes/Report: Prothrombin Time Whole Bld POC 34.2 11.1-13.5 sec INR WHOLE BLOOD POC Reviewed date:11/06/2023 05:26:31 AM Interpretation: Performing Lab:[facility], [address] [place] [phone] Notes/Report: PT, INR - [facility]ag [facility] 2.5 0.9-1.1 METER #: [id number] INTERNATIONAL NORMALIZED RATIO (INR) REFERENCE RANGES Reference Range For patients not on anticoagulant therapy: 0.9 - 1.1 INR ranges for oral anticoagulant therapy: For prevention and treatment of venous thrombosis and pulmonary embolism: 2.0 - 3.0 For acute myocardial infarction with aspirin therapy: 2.0 - 3.0 For acute myocardial infarction without aspirin therapy: 3.0 - 4.0 For patients with mechanical prosthetic heart valves: 2.5 - 3.5 Prothrombin Time Whole Bld P OC Reviewed date:11/06/2023 05:26:31 AM Interpretation: Performing Lab:[facility], [address] [place] [phone] Notes/Report: Prothrombin Time Whole Bld POC 30.1 11.1-13.5 sec INR WHOLE BLOOD POC Reviewed date:12/07/2023 06:47:16 AM Interpretation: Performing Lab:[facility], [address] [place] [phone] Notes/Report: PT, INR - [facility]ag [facility] 3.6 0.9-1.1 METER #: [id number] INTERNATIONAL NORMALIZED RATIO (INR) REFERENCE RANGES Reference Range For patients not on anticoagulant therapy: 0.9 - 1.1 INR ranges for oral anticoagulant therapy: For prevention and treatment of venous thrombosis and pulmonary embolism: 2.0 - 3.0 For acute myocardial infarction with aspirin therapy: 2.0 - 3.0 For acute myocardial infarction without aspirin therapy: 3.0 - 4.0 For patients with mechanical prosthetic heart valves: 2.5 - 3.5 Prothrombin Time Whole Bld P OC Reviewed date:12/07/2023 06:47:16 AM Interpretation: Performing Lab:[facility], [address] [place] [phone] Notes/Report: Prothrombin Time Whole Bld POC 43.1 11.1-13.5 sec INR WHOLE BLOOD POC Reviewed date:12/17/2023 08:58:55 PM Interpretation: Performing Lab:[facility], [address] [place] [phone] Notes/Report: PT, INR - Anti [facility]ag [facility] 3.4 0.9-1.1 METER #: [id number] INTERNATIONAL NORMALIZED RATIO (INR) REFERENCE RANGES Reference Range For patients not on anticoagulant therapy: 0.9 - 1.1 INR ranges for oral anticoagulant therapy: For prevention and treatment of venous thrombosis and pulmonary embolism: 2.0 - 3.0 For acute myocardial infarction with aspirin therapy: 2.0 - 3.0 For acute myocardial infarction without aspirin therapy: 3.0 - 4.0 For patients with mechanical prosthetic heart valves: 2.5 - 3.5 Prothrombin Time Whole Bld P OC Reviewed date:12/17/2023 08:58:55 PM Interpretation: Performing Lab:[facility], [address] [place] [phone] Notes/Report: Prothrombin Time Whole Bld POC 40.6 11.1-13.5 sec INR WHOLE BLOOD POC Reviewed date:01/02/2024 06:34:15 AM Interpretation: Performing Lab:[facility], [address] [place] [phone] Notes/Report: PT, INR - Anti Coag Clinic 3.6 0.9-1.1 METER #: [id number] INTERNATIONAL NORMALIZED RATIO (INR) REFERENCE RANGES Reference Range For patients not on anticoagulant therapy: 0.9 - 1.1 INR ranges for oral anticoagulant therapy: For prevention and treatment of venous thrombosis and pulmonary embolism: 2.0 - 3.0 For acute myocardial infarction with aspirin therapy: 2.0 - 3.0 For acute myocardial infarction without aspirin therapy: 3.0 - 4.0 For patients with mechanical prosthetic heart valves: 2.5 - 3.5 Prothrombin Time Whole Bld P OC Reviewed date:01/02/2024 06:34:15 AM Interpretation: Performing Lab:[facility], [address] [place] [phone] Notes/Report: Prothrombin Time Whole Bld POC 42.9 11.1-13.5 sec INR WHOLE BLOOD POC Reviewed date:01/12/2024 11:07:47 AM Interpretation: Performing Lab:[facility], [address] [place] [phone] Notes/Report: PT, INR - Anti [facility]ag Clinic 3.1 0.9-1.1 METER #: [id number] INTERNATIONAL NORMALIZED RATIO (INR) REFERENCE RANGES Reference Range For patients not on anticoagulant therapy: 0.9 - 1.1 INR ranges for oral anticoagulant therapy: For prevention and treatment of venous thrombosis and pulmonary embolism: 2.0 - 3.0 For acute myocardial infarction with aspirin therapy: 2.0 - 3.0 For acute myocardial infarction without aspirin therapy: 3.0 - 4.0 For patients with mechanical prosthetic heart valves: 2.5 - 3.5 Prothrombin Time Whole Bld P OC Reviewed date:01/12/2024 11:07:47 AM Interpretation: Performing Lab:[facility], [address] [place] [phone] Notes/Report: Prothrombin Time Whole Bld POC 37.0 11.1-13.5 sec INR WHOLE BLOOD POC Reviewed date:01/25/2024 04:12:11 PM Interpretation: Performing Lab:[facility], [address] [place] [phone] Notes/Report: PT, INR - Anti Coag Clinic 2.2 0.9-1.1 METER #: [id number] INTERNATIONAL NORMALIZED RATIO (INR) REFERENCE RANGES Reference Range For patients not on anticoagulant therapy: 0.9 - 1.1 INR ranges for oral anticoagulant therapy: For prevention and treatment of venous thrombosis and pulmonary embolism: 2.0 - 3.0 For acute myocardial infarction with aspirin therapy: 2.0 - 3.0 For acute myocardial infarction without aspirin therapy: 3.0 - 4.0 For patients with mechanical prosthetic heart valves: 2.5 - 3.5 Prothrombin Time Whole Bld P OC Reviewed date:01/25/2024 04:12:11 PM Interpretation: Performing Lab:[facility], [address] [place] [phone] Notes/Report: Prothrombin Time Whole Bld POC 26.6 11.1-13.5 sec Complete Blood Count Auto Di ff Reviewed date:02/09/2024 06:31:48 AM Interpretation: Performing Lab:[facility], [address] [place] [phone] Notes/Report: White Blood Count 9.2 4.8-10.8 X10*3/uL Red Blood Count 4.67 4.20-5.50 X10*6/uL Hemoglobin 12.5 12.0-16.0 g/dl Hematocrit 41.2 37.0-47.0 % Mean Corpuscular Volume 88.2 80.0-98.0 fL Mean Corpuscular Hemoglobin 26.8 27.0-33.0 pg Mean Corpuscular HGB Conc 30.3 31.0-35.0 g/dl Red Cell Distribution Width 15.9 11.0-16.0 % Platelet Count 231 160-400 X10*3/uL Mean Platelet Volume 11.9 9.4-12.3 fL Neutrophils Percent Auto 54.5 45-73 % Imm Gran Pct Auto 1.2 0.0-0.4 % Lymphocytes Percent Auto 34.5 20-40 % Monocytes Percent Auto 8.6 2-11 % Eosinophils Percent Auto 0.9 0-4 % Basophils Percent Auto 0.3 0-2 % NRBC Pct Auto 0.0 0.0-0.2 /100WBC Neutrophils Absolute Auto 5.0 2.0-8.3 x10*3/u L Imm Gran Abs Auto 0.11 0.00-0.03 X10*3/uL Lymphocytes Absolute Auto 3.2 1.2-4.9 X10*3/u L Monocytes Absolute Auto 0.8 0.1-1.2 X10*3/uL Eosinophils Absolute Auto 0.1 0.0-0.4 X10*3/u L Basophils Absolute Auto 0.0 0.0-0.2 X10*3/uL NRBC Abs Auto 0.000 0.0-0.012 X10*3/uL Comprehensive Clarissa. Panel Fa st Reviewed date:02/09/2024 06:31:49 AM Interpretation: Performing Lab:[facility], [address] [place] [phone] Notes/Report: Sodium 143 135-145 mmol/L Potassium 4.3 3.3-5.1 mmol/L Chloride 112 96-108 mmol/L Carbon Dioxide 24 22-29 mmol/L Anion Gap 11 12-20 Blood Urea Nitrogen 29 9-16 mg/dL Creatinine 0.78 0.5-1.4 mg/dL Estimated Glomerular Filt Rate > 60 NOTE: For -Spanish individuals, multiply the result by 1.210. Chronic Kidney Disease: Estimated GFR < 60 mL/min/1.73m2 Severe Kidney Disease: Estimated GFR < 15 mL/min/1.73m2 Glucose Fasting 130 60-99 mg/dL A fasting glucose of 126 mg/dl or greater on more than one occasion is considered diagnostic of diabetes. Calcium 8.6 8.4-10.2 mg/dL Bilirubin Total 0.3 0.0-1.0 mg/dL Aspartate Amino Transferase 35 5-31 U/L Alanine Aminotransferase 35 0-31 U/L Total Protein 7.2 6.5-8.0 g/dL Albumin Level 4.0 3.5-5.0 g/dL Alkaline Phosphatase 160 39-117 U/L Lipid Panel Reviewed date:02/09/2024 06:31:49 AM Interpretation: Performing Lab:[facility], [address] [place] [phone] Notes/Report: Triglycerides 75 <150 mg/dL Desirable Triglyceride: less than 150 mg/dL Borderline High Triglyceride 150-199 mg/dL High Triglyceride: 200-499 mg/dL Very High Triglyceride: greater than or equal to 5OO mg/dL Cholesterol 90 <200 mg/dL Desirable Cholesterol: less than 200 mg/dL Borderline High Cholesterol: 200-239 mg/dL High Cholesterol: greater than 239 mg/dL LDL Cholesterol Calculated 38 <100 mg/dL Desirable LDL: less than 100 mg/dL Near Optimal/Above Optimal LDL: 110-129 mg/dL Borderline High LDL: 130-159 mg/dL High LDL: 160-189 mg/dL Very High LDL: greater than or equal to 190 mg/dL HDL Cholesterol 37 >40 mg/dL Desirable HDL: greater than 40 mg/dL Note: This HDL assay may give artificially low results in patients with liver disease. INR WHOLE BLOOD POC Reviewed date:02/09/2024 06:31:48 AM Interpretation: Performing Lab:[facility], [address] [place] [phone] Notes/Report: PT, INR - Anti Coag Clinic 3.0 0.9-1.1 METER #: [id number] INTERNATIONAL NORMALIZED RATIO (INR) REFERENCE RANGES Reference Range For patients not on anticoagulant therapy: 0.9 - 1.1 INR ranges for oral anticoagulant therapy: For prevention and treatment of venous thrombosis and pulmonary embolism: 2.0 - 3.0 For acute myocardial infarction with aspirin therapy: 2.0 - 3.0 For acute myocardial infarction without aspirin therapy: 3.0 - 4.0 For patients with mechanical prosthetic heart valves: 2.5 - 3.5 Prothrombin Time Whole Bld P OC Reviewed date:02/09/2024 06:31:48 AM Interpretation: Performing Lab:[facility], [address] [place] [phone] Notes/Report: Prothrombin Time Whole Bld POC 36.0 11.1-13.5 sec Hemoglobin A1c Reviewed date:02/09/2024 06:31:48 AM Interpretation: Performing Lab:[facility], [address] [place] [phone] Notes/Report: Hemoglobin A1c % 7.5 <6.0 % Hemoglobin A1C Reference Range Adults: 4.8 - 6.0 % Non diabetic: < 6.0 % Goal: < 7.0 % Additional Action Suggested: > 8.0 % Note: Hemoglobin A1c results are invalid for patients with abnormal amounts of HbF. Blood transfusions may impact the HbA1c concentration in the patient sample. Estimated Average Glucose 169 eAG = Estimated average glucose which is %A1C expressed as average glucose, using the formula of the [id number] Average Glucose study (ADAG), Diabetes Care, Vol.31,#8, 2007 INR WHOLE BLOOD POC Reviewed date:02/23/2024 11:26:27 AM Interpretation: Performing Lab:[facility], [address] [place] [phone] Notes/Report: PT, INR - Anti Coag Clinic 2.4 0.9-1.1 METER #: [id number] INTERNATIONAL NORMALIZED RATIO (INR) REFERENCE RANGES Reference Range For patients not on anticoagulant therapy: 0.9 - 1.1 INR ranges for oral anticoagulant therapy: For prevention and treatment of venous thrombosis and pulmonary embolism: 2.0 - 3.0 For acute myocardial infarction with aspirin therapy: 2.0 - 3.0 For acute myocardial infarction without aspirin therapy: 3.0 - 4.0 For patients with mechanical prosthetic heart valves: 2.5 - 3.5 Prothrombin Time Whole Bld P OC Reviewed date:02/23/2024 11:26:27 AM Interpretation: Performing Lab:[facility], [address] [place] [phone] Notes/Report: Prothrombin Time Whole Bld POC 28.8 11.1-13.5 sec INR WHOLE BLOOD POC Reviewed date:03/14/2024 03:12:08 PM Interpretation: Performing Lab:[facility], [address] [place] [phone] Notes/Report: PT, INR - Anti Coag Clinic 2.6 0.9-1.1 METER #: [id number] INTERNATIONAL NORMALIZED RATIO (INR) REFERENCE RANGES Reference Range For patients not on anticoagulant therapy: 0.9 - 1.1 INR ranges for oral anticoagulant therapy: For prevention and treatment of venous thrombosis and pulmonary embolism: 2.0 - 3.0 For acute myocardial infarction with aspirin therapy: 2.0 - 3.0 For acute myocardial infarction without aspirin therapy: 3.0 - 4.0 For patients with mechanical prosthetic heart valves: 2.5 - 3.5 Prothrombin Time Whole Bld P OC Reviewed date:03/14/2024 03:12:08 PM Interpretation: Performing Lab:[facility], [address] [place] [phone] Notes/Report: Prothrombin Time Whole Bld POC 30.7 11.1-13.5 sec INR WHOLE BLOOD POC Reviewed date:03/28/2024 02:06:07 PM Interpretation: Performing Lab:[facility], [address] [place] [phone] Notes/Report: PT, INR - Anti Coag Clinic 2.4 0.9-1.1 METER #: [id number] INTERNATIONAL NORMALIZED RATIO (INR) REFERENCE RANGES Reference Range For patients not on anticoagulant therapy: 0.9 - 1.1 INR ranges for oral anticoagulant therapy: For prevention and treatment of venous thrombosis and pulmonary embolism: 2.0 - 3.0 For acute myocardial infarction with aspirin therapy: 2.0 - 3.0 For acute myocardial infarction without aspirin therapy: 3.0 - 4.0 For patients with mechanical prosthetic heart valves: 2.5 - 3.5 Prothrombin Time Whole Bld P OC Reviewed date:03/28/2024 02:06:07 PM Interpretation: Performing Lab:[facility], [address] [place] [phone] Notes/Report: Prothrombin Time Whole Bld POC 29.2 11.1-13.5 sec INR WHOLE BLOOD POC Reviewed date:04/04/2024 09:01:19 PM Interpretation: Performing Lab:[facility], [address] [place] [phone] Notes/Report: PT, INR - [facility] 2.4 0.9-1.1 METER #: [id number] INTERNATIONAL NORMALIZED RATIO (INR) REFERENCE RANGES Reference Range For patients not on anticoagulant therapy: 0.9 - 1.1 INR ranges for oral anticoagulant therapy: For prevention and treatment of venous thrombosis and pulmonary embolism: 2.0 - 3.0 For acute myocardial infarction with aspirin therapy: 2.0 - 3.0 For acute myocardial infarction without aspirin therapy: 3.0 - 4.0 For patients with mechanical prosthetic heart valves: 2.5 - 3.5 Prothrombin Time Whole Bld P OC Reviewed date:04/04/2024 09:01:19 PM Interpretation: Performing Lab:[facility], [address] [place] [phone] Notes/Report: Prothrombin Time Whole Bld POC 28.9 11.1-13.5 sec INR WHOLE BLOOD POC Reviewed date:04/24/2024 05:20:08 AM Interpretation: Performing Lab:[facility], [address] [place] [phone] Notes/Report: PT, INR - [facility] 2.6 0.9-1.1 METER #: [id number] INTERNATIONAL NORMALIZED RATIO (INR) REFERENCE RANGES Reference Range For patients not on anticoagulant therapy: 0.9 - 1.1 INR ranges for oral anticoagulant therapy: For prevention and treatment of venous thrombosis and pulmonary embolism: 2.0 - 3.0 For acute myocardial infarction with aspirin therapy: 2.0 - 3.0 For acute myocardial infarction without aspirin therapy: 3.0 - 4.0 For patients with mechanical prosthetic heart valves: 2.5 - 3.5 Prothrombin Time Whole Bld P OC Reviewed date:04/24/2024 05:20:08 AM Interpretation: Performing Lab:[facility], [address] [place] [phone] Notes/Report: Prothrombin Time Whole Bld POC 31.6 11.1-13.5 sec Reason For Referral No Information Medications Medication SIG (Take, Route, Frequency, Duration) Notes Start Date End Date Status diazePAM 5 MG 1 tablet Orally ever y 4 hours for anxiety 01/12/2023 Active Gabapentin 100 MG 1 capsule Orally Onc e a day Active Warfarin Sodium 4 MG as directed Orally Once a day Active Docusate Sodium Acti ve Metoprolol Tartrate 25 MG 1 tablet with food Orally Twice a day Active Atorvastatin Calcium 80 MG 1 tablet Oral ly Once a day Active FLUoxetine HCl 20 MG 1 capsule Orally On ce a day Active Omeprazole 20 MG 1 capsule 30 minutes before morning meal Orally Once a day Active Immunizations Vaccine Route Administration Date Status Comme nts Influenza Unknown 04/18/2014 Administered Zostavax Unknown 08/09/2014 Administered Influenza Unknown 03/11/2016 Administered Influenza, quad IM Intramuscular 02/14/2021 Administered Social History Tobacco Use: Social History Observation Description Date Details (start date - stop date) Former Smoker NA - NA Sex Assigned At : Social History Observation Description Sex Assigned At Female Tobacco Use/Smoking Question Answer Notes Patient is a former smoker How long has it been since you last smoked? > 10 years Additional Findings: Tobacco Non-User Ex-cigaret te smoker Alcohol Screen Question Answer Notes Did you have a drink containing alcohol in the p ast year? No Points 0 Interpretation Negative Problems Problem Type SNOMED Code ICD Code Onset Dates Problem Status W/U Status Risk Notes Problem 5530742 Former smoker (Z87.891) Active confirmed He is unable to obtain cigarettes. She does not smoke since his stroke. She says she does not want to. Problem 85292821 Fibromyalgia (M79.7) Active confirmed Fibromyalgia lately has been low-grade she lives with a without a great deal difficulty. No medical therapies necessary. Problem DM - Diabetes mellitus (99197014) DM (diabetes mellitus) (E11.9) Active confirmed I have encouraged them to agree to treating the diabetes with an JAZZY inhibitor and metformin Problem Hyperglycemia (25311040) Hyperglycemia (R73.9) Active confirmed Problem 274784631 Gastro-esophagea l reflux disease without esophagitis (K21.9) Active confirmed She will continue on omeprazole and liquid antacid as needed. Problem 59481184 Essential hypertension (I10) Active confirmed Low Her blood pressure was 115/68 and no change in her regimen was necessary. Problem 568297396 Anticoagulation adequate (Z79.01) Active confirmed She has had no bleeding and is compliant with her therapy. Problem CVA - Cerebrovascular accident (833381195) CVA (cerebral vascular accident) (I63.9) Active confirmed She is currently anticoagulated because of the stroke. She has a dense right hemiplegia, but no further neurological symptoms. She is awake and alert and responsive to questions. Her speech is fluent. Problem 560432756 Morbid obesity (E66.01) Active confirmed He discussed her overweight status. We discussed diet and nutrition. We made plans for her to lose weight at a rate of one half of a pound per week. Problem 267192827 Gallstones (K80.20) Active confirmed She remains free of symptoms from her cholelithiasis. Problem Right hemiplegia (239917106) Right hemiplegia (G81.91) Active confirmed There has been no change in the weakness of the right arm and leg. She remains confined to a wheelchair. The weakness in the right arm is dense. Problem 199182080 Type 2 diabetes mellitus without complication, without long-term current use of insulin (E11.9) Active confirmed I have order ed comprehensive blood work with a hemoglobin A1c fasting glucose lipid profile and microalbumin. No change in her medications was made. Vital Signs Heart Rate 66 /min 02/16/2024 Temperature 98.2 degrees Fahrenheit 02/16/2024 Blood pressure diastolic 68 mm Hg 02/16/2024 Height 58 in 02/16/2024 Blood pressure systolic 115 mm Hg 02/16/2024 Weight 182 lbs 02/16/2024 BMI 38.03 kg/m2 02/16/2024 Encounters Encounter Location Date Provider Diagnosis Jose E Hubbard III, MD [address] [place] [address] 07/13/2023 Jose E Hubbard Essential hypertensi on I10 ; Morbid obesity E66.01 ; Type 2 diabetes mellitus without complication, without long-term current use of insulin E11.9 ; Anticoagulation adequate Z79.01 ; CVA (cerebral vascular accident) I63.9 ; Gastro-esophageal reflux disease without esophagitis K21.9 and Right hemiplegia G81.91 Jose E Hubbard III, MD [address] [place] [address] 11/16/2023 Jose E Hubbard Essential hypertensi on I10 ; Type 2 diabetes mellitus without complication, without long-term current use of insulin E11.9 ; Fibromyalgia M79.7 ; Gastro-esophageal reflux disease without esophagitis K21.9 ; CVA (cerebral vascular accident) I63.9 ; Anticoagulation adequate Z79.01 and Right hemiplegia G81.91 Jose E Hubbard III, MD [address] [place] [address] [place] [address] 01/25/2024 Jose E Hubbard Essential hypertensi on I10 ; Morbid obesity E66.01 ; Type 2 diabetes mellitus without complication, without long-term current use of insulin E11.9 ; Fibromyalgia M79.7 ; Gastro-esophageal reflux disease without esophagitis K21.9 ; CVA (cerebral vascular accident) I63.9 ; Anticoagulation adequate Z79.01 ; Right hemiplegia G81.91 and Former smoker Z87.891 Jose E Hubbard III, MD [address] [place] [address] [place] [address] 02/16/2024 Jose E Hubbard Essential hypertensi on I10 ; DM (diabetes mellitus) E11.9 ; Fibromyalgia M79.7 ; Gastro-esophageal reflux disease without esophagitis K21.9 ; CVA (cerebral vascular accident) I63.9 ; Anticoagulation adequate Z79.01 ; Right hemiplegia G81.91 ; Former smoker Z87.891 and Obesity (BMI 30-39.9) E66.9 Jose E Hubbard III, MD [address] [place] [address] [place] [address] 06/14/2023 Jose E Hubbard Essential hypertensi on I10 Jose E Hubbard III, MD [address] [place] [address] [place] [address] 09/15/2023 Jose E Hubbard Essential hypertensi on I10 Jose E Hubbard III, MD [address] [place] [address] [place] [address] 10/20/2023 Jose E Hubbard III, MD [address] [place] [address] [place] [address] 11/08/2023 Jose E Hubbard III, MD [address] [place] [address] [place] [address] 12/15/2023 Jose E Hubbard Essential hypertensi on I10 Jose E Hubbard III, MD [address] [place] [address] [place] [address] 12/24/2023 Jose E Hubbard Essential hypertensi on I10 Jose E Hubbard III, MD [address] [place] [address] [place] [address] 03/17/2024 Jose E Hubbard Assessments Encounter Date Diagnosis (ICD Code) Assessment Notes Treat ment Notes Treatment Clinical Notes 07/13/2023 Essential hypertension (ICD-10 - I10) Her blood pressure at this time is i110/81and no change in her regimen was necessary. 07/13/2023 Morbid obesity (ICD-10 - E66.01) Her body mass index is 38 and she has lost 3 pounds since her last visit. We discussed the weight reduction strategy in detail today. 11/16/2023 Essential hypertension (ICD-10 - I10) Her blood pressure at this time is i120/66 and no change in her regimen was necessary. 11/16/2023 Type 2 diabetes mellitus without complication, without long-term current use of insulin (ICD-10 - E11.9) She is going to have comprehensive blood work after this visit which will include a hemoglobin A1. 01/25/2024 Essential hypertension (ICD-10 - I10) Her blood pressure was i120/66 and no change in her regimen was necessary. She will come to the office in the near future to have a measured again. 01/25/2024 Morbid obesity (ICD-10 - E66.01) He discussed her overweight status. We discussed diet and nutrition. We made plans for her to lose weight at a rate of one half of a pound per week. 02/16/2024 DM (diabetes mellitus) (ICD-10 - E11.9) I have encouraged them to agree to treating the diabetes with an JAZZY inhibitor and metformin 02/16/2024 Essential hypertension (ICD-10 - I10) Her blood pressure was 115/68 and no change in her regimen was necessary. 06/14/2023 Essential hypertension (ICD-10 - I10) Her blood pressure at this time is in the normal range At 100/60and no change in her regimen was necessary. 09/15/2023 Essential hypertension (ICD-10 - I10) Her blood pressure at this time is i110/81and no change in her regimen was necessary. 12/15/2023 Essential hypertension (ICD-10 - I10) Her blood pressure at this time is i120/66 and no change in her regimen was necessary. 12/24/2023 Essential hypertension (ICD-10 - I10) Her blood pressure at this time is i120/66 and no change in her regimen was necessary. 07/13/2023 Type 2 diabetes mellitus without complication, without long-term current use of insulin (ICD-10 - E11.9) She will continue on her current therapy at this time. The diabetes seems well controlled. 11/16/2023 Fibromyalgia (ICD-10 - M79.7) Fibromyalgia lately has been low-grade she lives with a without a great deal difficulty. No medical therapies necessary. 01/25/2024 Type 2 diabetes mellitus without complication, without long-term current use of insulin (ICD-10 - E11.9) I have ordered comprehensive blood work with a hemoglobin A1c fasting glucose lipid profile and microalbumin. No change in her medications was made. 02/16/2024 Fibromyalgia (ICD-10 - M79.7) Fibromyalgia lately has been low-grade she lives with a without a great deal difficulty. No medical therapies necessary. 07/13/2023 Anticoagulation adequate (ICD-10 - Z79.01) She has had no bleeding and is compliant with her therapy. 11/16/2023 Gastro-esophageal reflux disease without esophagitis (ICD-10 - K21.9) She will continue on omeprazole and liquid antacid as needed. 01/25/2024 Fibromyalgia (ICD-10 - M79.7) Fibromyalgia lately has been low-grade she lives with a without a great deal difficulty. No medical therapies necessary. 02/16/2024 Gastro-esophageal reflux disease without esophagitis (ICD-10 - K21.9) She will continue on omeprazole and liquid antacid as needed. 07/13/2023 CVA (cerebral vascular accident) (ICD-10 - I63.9) She is currently anticoagulated because of the stroke. She has a dense right hemiplegia, but no further neurological symptoms. She is awake and alert and responsive to questions. Her speech is fluent. 11/16/2023 CVA (cerebral vascular accident) (ICD-10 - I63.9) She is currently anticoagulated because of the stroke. She has a dense right hemiplegia, but no further neurological symptoms. She is awake and alert and responsive to questions. Her speech is fluent. 01/25/2024 Gastro-esophageal reflux disease without esophagitis (ICD-10 - K21.9) She will continue on omeprazole and liquid antacid as needed. 02/16/2024 CVA (cerebral vascular accident) (ICD-10 - I63.9) She is currently anticoagulated because of the stroke. She has a dense right hemiplegia, but no further neurological symptoms. She is awake and alert and responsive to questions. Her speech is fluent. 07/13/2023 Gastro-esophageal reflux disease without esophagitis (ICD-10 - K21.9) She will continue on omeprazole and liquid antacid as needed. 11/16/2023 Anticoagulation adequate (ICD-10 - Z79.01) She has had no bleeding and is compliant with her therapy. 01/25/2024 CVA (cerebral vascular accident) (ICD-10 - I63.9) She is currently anticoagulated because of the stroke. She has a dense right hemiplegia, but no further neurological symptoms. She is awake and alert and responsive to questions. Her speech is fluent. 02/16/2024 Anticoagulation adequate (ICD-10 - Z79.01) She has had no bleeding and is compliant with her therapy. 07/13/2023 Right hemiplegia (ICD-10 - G81.91) There has been no change in the weakness of the right arm and leg. She remains confined to a wheelchair. The weakness in the right arm is dense. 11/16/2023 Right hemiplegia (ICD-10 - G81.91) There has been no change in the weakness of the right arm and leg. She remains confined to a wheelchair. The weakness in the right arm is dense. 01/25/2024 Anticoagulation adequate (ICD-10 - Z79.01) She has had no bleeding and is compliant with her therapy. 02/16/2024 Right hemiplegia (ICD-10 - G81.91) There has been no change in the weakness of the right arm and leg. She remains confined to a wheelchair. The weakness in the right arm is dense. 01/25/2024 Right hemiplegia (ICD-10 - G81.91) There has been no change in the weakness of the right arm and leg. She remains confined to a wheelchair. The weakness in the right arm is dense. 02/16/2024 Former smoker (ICD-1 0 - Z87.891) He is unable to obtain cigarettes. She does not smoke since his stroke. She says she does not want to. 01/25/2024 Former smoker (ICD-1 0 - Z87.891) He is unable to obtain cigarettes. She does not smoke since his stroke. She says she does not want to. 02/16/2024 Obesity (BMI 30-39.9 ) (ICD-10 - E66.9) Her body mass index is 38.. She is dependent upon her family for nutrition and we had a discussion about diet and weight loss today. Plan Of Treatment Pending Test Test Name Order Date PROFILE, FASTING (COMPREHENSIVE METABOLI C) 04/07/2023 PROFILE, FASTING (COMPREHENSIVE METABOLI C) 01/05/2023 PROFILE, FASTING (COMPREHENSIVE METABOLI C) 11/16/2023 PROFILE, FASTING (COMPREHENSIVE METABOLI C) 04/15/2022 PROFILE, FASTING (COMPREHENSIVE METABOLI C) 01/09/2020 PROFILE, FASTING (COMPREHENSIVE METABOLI C) 06/03/2020 PROFILE, FASTING (COMPREHENSIVE METABOLI C) 02/10/2022 PROFILE, FASTING (COMPREHENSIVE METABOLI C) 10/05/2022 PROFILE, FASTING (COMPREHENSIVE METABOLI C) 07/13/2023 PROFILE, FASTING (COMPREHENSIVE METABOLI C) 10/13/2018 PROFILE, FASTING (COMPREHENSIVE METABOLI C) 02/16/2024 PROFILE, FASTING (COMPREHENSIVE METABOLI C) 06/15/2019 PROFILE, FASTING (COMPREHENSIVE METABOLI C) 07/08/2022 PROFILE, FASTING (COMPREHENSIVE METABOLI C) 03/05/2020 PROFILE, FASTING (COMPREHENSIVE METABOLI C) 11/10/2021 PROFILE, FASTING (COMPREHENSIVE METABOLI C) 09/02/2020 PROFILE, RANDOM (COMPREHENSIVE METABOLIC ) 10/23/2021 PROFILE, RANDOM (COMPREHENSIVE METABOLIC ) 04/20/2019 HEMOGLOBIN A1C (GLYCOHEMOGLOBIN) 023 LIPID PANEL 03/05/2020 LIPID PANEL 09/02/2020 LIPID PANEL 04/20/2019 LIPID PANEL 04/15/2022 LIPID PANEL 01/05/2023 LIPID PANEL 01/09/2020 LIPID PANEL 06/03/2020 LIPID PANEL 02/10/2022 LIPID PANEL 10/05/2022 LIPID PANEL 10/13/2018 LIPID PANEL 06/15/2019 LIPID PANEL 07/08/2022 MICROALBUMIN, RANDOM 01/05/2023 CBC w DIFF 11/10/2021 CBC w DIFF 06/15/2019 CBC w DIFF 07/08/2022 CBC w DIFF 04/07/2023 CBC w DIFF 10/23/2021 CBC w DIFF 03/05/2020 CBC w DIFF 09/02/2020 CBC w DIFF 04/20/2019 CBC w DIFF 04/15/2022 CBC w DIFF 01/09/2020 CBC w DIFF 06/03/2020 CBC w DIFF 02/10/2022 CBC w DIFF 01/05/2023 CBC w DIFF 10/05/2022 CBC w DIFF 10/13/2018 PROTHROMBIN TIME (PT, INR) 04/15/2020 URINE CULTURE 06/26/2020 ROUTINE CULTURE 12/05/2014 XR CHEST 2 VIEW PA & LAT 08/04/2022 MAMMOGRAM DIGITAL BILATERAL SCREEN 09/15 US ABD 02/10/2022 US ABD 09/15/2021 [facility] 03/08/20 17 CBC WITH AUTO DIFF 11/16/2023 CBC WITH AUTO DIFF 07/13/2023 CBC WITH AUTO DIFF 02/16/2024 Urinalysis 06/26/2020 Lipid Panel 02/16/2024 Lipid Panel 11/10/2021 Lipid Panel 04/07/2023 Lipid Panel 11/16/2023 Lipid Panel 07/13/2023 T Spot TB 08/04/2022 US abdomen complete 07/08/2022 Next Appt Details Provider Name:Jose E Hubbard, 07/14/2024 10:00:00 AM, [address] [place] [address] , MONI Tita, [place], [id number], Insurance Providers Payer Name Payer Address Payer Phone Subscriber Number Group Number Insured Name Patient Relationship to Insured Coverage Start Date Coverage End Date MEDICARE NGS [address] [place] [address] [id number] Jose Malu Self - patient is the insured MEDICAID [address] [place]APP [id number] Jose Malu Self - patient is the insured Medical (General) History Medical History History ICD Code gerd degenerative disc disease cervical spine plantar warts gastritis fibromyalgia right shoulder pain essential hypertension left hemisphere infarction right hemiparasis chronic anticoagulation Tinea unguium B35.1 Plantar wart B07.0 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 Chela Pritchard 03/2022 Hospitalization History Reason Date(Month/Year) stroke 07/05
--- OUTSIDE RECORDS SUMMARY | 2024-05-12 09:56 | XMS_ITS ---
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 Name Role Phone Jose E Hubbard Primary Care Provider Allergies Allergen (clinical drug ingredient) Drug/Non Drug Allergy documented on EMR Reaction Allergy Type Onset Date Status acetaminophen / oxycodone Percocet Unknown Drug Allergy Active miconazole Monistat 3 burning Drug Allergy Activ e Results Component Value Reference Range Notes RBS/Hemocue glucose Reviewed date:02/16/2024 09:42:15 AM Interpretation: Performing Lab: Notes/Report: RBS 108 REASON FOR VISIT Adult onset diabetes, Left Cerebralinfarction, Right hemiplegia, GERD, Hypertension, Anticoagulated, Morbid obesity Medications Medication SIG (Take, Route, Frequency, Duration) [...] morning meal Orally Once a day Active Social History Tobacco Use: Social History Observation Description Date Details (start date - stop date) Former Smoker NA - NA Sex Assigned At : Social History Observation Description Sex Assigned At Female Tobacco Use/Smoking Question Answer Notes Patient is a former smoker How long has it been since you last smoked? > 10 years Additional Findings: Tobacco Non-User Ex-cigaret te smoker Problems Problem Type SNOMED Code ICD Code Onset Dates Problem Status W/U Status Risk Notes Problem DM - Diabetes mellitus (34979167) DM (diabetes mellitus) (E11.9) Active confirmed I have encouraged them to agree to treating the diabetes with an JAZZY inhibitor and metformin Vital Signs Temperature 98.2 degrees Fahrenheit 02/16/20 24 Blood pressure systolic 115 mm Hg 02/16/20 24 Blood pressure diastolic 68 mm Hg 024 Heart Rate 66 /min 02/16/2024 Height 58 in 02/16/2024 Weight 182 lbs 02/16/2024 BMI 38.03 kg/m2 02/16/2024 Encounters Encounter Location Date Provider Diagnosis Jose E Hubbard III, MD [address] [place] [address] [place] [address] 02/16/2024 Jose E Hubbard Essential hypertensi on I10 ; DM (diabetes mellitus) E11.9 ; Fibromyalgia M79.7 ; Gastro-esophageal reflux disease without esophagitis K21.9 ; CVA (cerebral vascular accident) I63.9 ; Anticoagulation adequate Z79.01 ; Right hemiplegia G81.91 ; Former smoker Z87.891 and Obesity (BMI 30-39.9) E66.9 Assessments Encounter Date Diagnosis (ICD Code) Assessment Notes Treat ment Notes Treatment Clinical Notes 02/16/2024 Essential hypertension (ICD-10 - I10) Her blood pressure was 115/68 and no change in her regimen was necessary. 02/16/2024 DM (diabetes mellitus) (ICD-10 - E11.9) I have encouraged them to agree to treating the diabetes with an JAZZY inhibitor and metformin 02/16/2024 Fibromyalgia (ICD-10 - M79.7) Fibromyalgia lately [...] and weight loss today. Plan Of Treatment Medication Medication Name Sig Start Date Stop Date Notes diazePAM 5 MG 1 tablet Orally ever y 4 hours for anxiety 01/12/2023 Gabapentin 100 MG 1 capsule Orally Once a day Warfarin Sodium 4 MG as directed Orally Once a day Docusate Sodium Metoprolol Tartrate 25 MG 1 tablet with food Orally Twice a day Atorvastatin Calcium 80 MG 1 tablet Orally Once a day FLUoxetine HCl 20 MG 1 capsule Orally Once a day Omeprazole 20 MG 1 capsule 30 minutes before morning meal Orally Once a day Pending Test Test Name Order Date PROFILE, FASTING (COMPREHENSIVE METABOLI C) 02/16/2024 CBC WITH AUTO DIFF 02/16/2024 Lipid Panel 02/16/2024 Next Appt Details Follow Up: As Scheduled, Sabra son: OV, Annual Exam Provider Name:Jose E Hubbard, 07/14/2024 10:00:00 AM, [address] [place] [address] , [place] [address], [place], [address], Progress Notes * Malu GARCIADOB:1955 ([age] yo F)Acc No.[id number]:02/16/2024 Progress Notes Patient:?Malu GARCIA Provider:?Jose E Hubbard MD :1955???Age:68 Y???Sex:Female D ate:02/16/2024 Address:[address] [place] [address] [phone] Subjective: * Chief Complaints: * ???Adult onset diabetesLeft CerebralinfarctionRight hemiplegiaGERDHypertensionAnticoagulatedMorbid obesity * HPI: ???COVID-19 Screening:?She returns to the office for medical management.She has recently become able to stand.? Her brother who comes with her showed me videos of her standing up and getting out of bed.? She has been walking a few feet with a walker.? SShe remains a phasic but is able to understanding communicated.? She remains anticoagulated without bleeding.? She continues her efforts to lose weight.? Her hemoglobin A1c was 7.5 and her fasting glucose today in my office was 108.? I have offered to prescribe metformin for her.She and her brother indicated they will consider this and discuss it again on the next visit.? I made him aware that the control of her diabetes with metformin combined with a statin drug and an jazzy inhibitor would be the standard of care. ?Questions?Have you experienced fever, chills, cough, sore throat, shortness of breath, difficulty breathing, muscle aches, loss of taste or smell??No ?Have you been exposed to the virus within the last 10 days??No ?Have you travelled internationally in the last 10 days??No ?Have you been exposed to COVID-19 in the past??Yes * ROS:?General/Constitutional:?pain?Left shoulder.?Chills?denies.?Fatigue?admits.?Fever?denies.?ENT:?Decreased hearing?mild.?Respiratory:?Cough?denies.?Cardiovascular:?Chest pain with exertion?denies.?Dyspnea on exertion?denies.?Shortness of breath?denies.?Gastrointestinal:?Constipation?occasional.?Decreased appetite?denies.?Diarrhea?denies.?Heartburn?denies.?Nausea?denies.?Rectal bleeding?denies.?Vomiting?denies.?Hematology:?bruising?denies.?petechiae?denies.?Swollen glands?none have been noted.?Genitourinary:?Frequent urination?denies.?Musculoskeletal:?Muscle aches?denies.?Painful joints?Shoulders and hips.?Sciatica?denies.?Weakness?denies.?Skin:?Itching?denies.?Rash?denies.?Skin lesion(s)?denies.?Neurologic:?Difficulty speaking?denies.?Dizziness?denies.?Headache?denies.?Low back pain?denies.?Psychiatric:?Depressed mood?denies.? * Medical History:? * Surgical History:?Negative c olonoscopy, [facility], Dr. York 03/2022 * Hospitalization/Major Diagno stic Procedure:?stroke 07/05 * Family History:?Father: dece ased 50 yrs, epilepsy.?Mother: 48 yrs, complications from surgery.?Siblings: alive, Sister have breast cancer and ovarian cancer, diagnosed with Cancer.?4 brother(s) , 3 sister(s) . 1 son(s) . .? A son has diabetes. A brother of liver cancer. A sister has ovarian cancer. She is not aware of any family history of mental illness or substance use disorder, or addictions. * Social History:?Tobacco Use:?Tobacco Use/Smoking?Patient is a?former smoker ?How long has it been since you last smoked??> 10 years ?Additional Findings: Tobacco Non-User?Ex-cigarette smoker ???She lives in [place]. She was born in [place], [place]. She has been since 1997 and has 1 child. * Medications:?TakingAtorvasta tin Calcium 80 MG Tablet 1 tablet Orally Once a day FLUoxetine HCl 20 MG Capsule 1 capsule Orally Once a day Metoprolol Tartrate 25 MG Tablet 1 tablet with food Orally Twice a day Warfarin Sodium 4 MG Tablet as directed Orally Once a day Docusate Sodium diazePAM 5 MG Tablet 1 tablet Orally every 4 hours for anxiety Gabapentin 100 MG Capsule 1 capsule Orally Once a day Omeprazole 20 MG Capsule Delayed Release 1 capsule 30 minutes before morning meal Orally Once a day Medication List reviewed and reconciled with the patientTaking Atorvastatin Calcium 80 MG Tablet 1 tablet Orally Once a day Taking FLUoxetine HCl 20 MG Capsule 1 capsule Orally Once a day Taking Metoprolol Tartrate 25 MG Tablet 1 tablet with food Orally Twice a day Taking Warfarin Sodium 4 MG Tablet as directed Orally Once a day Taking Docusate Sodium Taking diazePAM 5 MG Tablet 1 tablet Orally every 4 hours for anxiety Taking Gabapentin 100 MG Capsule 1 capsule Orally Once a day Taking Omeprazole 20 MG Capsule Delayed Release 1 capsule 30 minutes before morning meal Orally Once a day Medication List reviewed and reconciled with the patient * Allergies:?PercocetMonistat 3: burningno[Allergies Verified] Objective: * Vitals:?Ht: 58, Wt:182, BMI: 38.03, BP:115/68, HR:66, Temp:98.2, Wt-k.55. * ???Past Orders: Lab:INR WHOLE BLOOD POC * Collection Date 02/08/2024 01/25/2024 01/11/2024 12/31/2023 12/17/2023 12/03/2023 Collection Time 10:29 AM 10:12 AM 09:47 AM 09:52 AM 09:54 AM 09:58 AM Order Date 02/08/2024 01/25/2024 01/11/2024 12/31/2023 12/03/2023 INR WHOLE BLOOD POC 3.0?H (Ref Range: 0.9-1.1) 2.2?H (Ref Range: 0.9-1.1) 3.1?H (Ref Range: 0.9-1.1) 3.6?H (Ref Range: 0.9-1.1) 3.4?H (Ref Range: 0.9-1.1) 3.6?H (Ref Range: 0.9-1.1) * Lab:Lipid Panel * Collection Date 02/08/2024 07/07/2023 04/01/2023 Collection Time 10:06 AM 10:24 AM 09:59 AM Order Date 02/08/2024 07/07/2023 04/01/2023 Triglycerides 75 (Ref Range: <150 mg/dL) 75 (Ref Range: <150 mg/dL) 95 (Ref Range: <150 mg/dL) Cholesterol 90 (Ref Range: <200 mg/dL) 104 (Ref Range: <200 mg/dL) 100 (Ref Range: <200 mg/dL) LDL Cholesterol Calculated 38 (Ref Range: <100 mg/dL) 54 (Ref Range: <100 mg/dL) 44 (Ref Range: <100 mg/dL) HDL Cholesterol 37?L (Ref Range: >40 mg/dL) 35?L (Ref Range: >40 mg/dL) 37?L (Ref Range: >40 mg/dL) * Lab:Prothrombin Time Whole B ld POC * Collection Date 02/08/2024 01/25/2024 01/11/2024 12/31/2023 12/17/2023 12/03/2023 Collection Time 10:29 AM 10:12 AM 09:47 AM 09:52 AM 09:54 AM 09:58 AM Order Date 02/08/2024 01/25/2024 01/11/2024 12/31/2023 12/03/2023 Prothrombin Time Whole Bld POC 36.0?H (Ref Range: 11.1-13.5 sec) 26.6?H (Ref Range: 11.1-13.5 sec) 37.0?H (Ref Range: 11.1-13.5 sec) 42.9?H (Ref Range: 11.1-13.5 sec) 40.6?H (Ref Range: 11.1-13.5 sec) 43.1?H (Ref Range: 11.1-13.5 sec) * Lab:Hemoglobin A1c * Collection Date 02/08/2024 04/01/2023 Collection Time 10:06 AM 09:59 AM Order Date 02/08/2024 04/01/2023 Hemoglobin A1c % 7.5?H (Ref Range: <6.0 %) 7.4?H (Ref Range: <6.0 %) Estimated Average Glucose 169 (Ref Range: mg/dL) 166 (Ref Range: mg/dL) * Lab:Complete Blood Count Aut o Diff * Collection Date 02/08/2024 07/07/2023 04/01/2023 Collection Time 10:06 AM 10:24 AM 09:59 AM Order Date 02/08/2024 07/07/2023 04/01/2023 White Blood Count 9.2 (Ref Range: 4.8-10.8 X10*3/uL) 7.4 (Ref Range: 4.8-10.8 X10*3/uL) 6.6 (Ref Range: 4.8-10.8 X10*3/uL) Red Blood Count 4.67 (Ref Range: 4.20-5.50 X10*6/uL) 4.98 (Ref Range: 4.20-5.50 X10*6/uL) 4.69 (Ref Range: 4.20-5.50 X10*6/uL) Hemoglobin 12.5 (Ref Range: 12.0-16.0 g/dl) 13.0 (Ref Range: 12.0-16.0 g/dl) 12.3 (Ref Range: 12.0-16.0 g/dl) Hematocrit 41.2 (Ref Range: 37.0-47.0 %) 42.8 (Ref Range: 37.0-47.0 %) 40.6 (Ref Range: 37.0-47.0 %) Mean Corpuscular Volume 88.2 (Ref Range: 80.0-98.0 fL) 85.9 (Ref Range: 80.0-98.0 fL) 86.6 (Ref Range: 80.0-98.0 fL) Mean Corpuscular Hemoglobin 26.8?L (Ref Range: 27.0-33.0 pg) 26.1?L (Ref Range: 27.0-33.0 pg) 26.2?L (Ref Range: 27.0-33.0 pg) Mean Corpuscular HGB Conc 30.3?L (Ref Range: 31.0-35.0 g/dl) 30.4?L (Ref Range: 31.0-35.0 g/dl) 30.3?L (Ref Range: 31.0-35.0 g/dl) Red Cell Distribution Width 15.9 (Ref Range: 11.0-16.0 %) 15.2 (Ref Range: 11.0-16.0 %) 15.5 (Ref Range: 11.0-16.0 %) Platelet Count 231 (Ref Range: 160-400 X10*3/uL) 190 (Ref Range: 160-400 X10*3/uL) 285 (Ref Range: 160-400 X10*3/uL) Mean Platelet Volume 11.9 (Ref Range: 9.4-12.3 fL) 12.2 (Ref Range: 9.4-12.3 fL) 12.0 (Ref Range: 9.4-12.3 fL) Neutrophils Percent Auto 54.5 (Ref Range: 45-73 %) 60.6 (Ref Range: 45-73 %) 60.0 (Ref Range: 45-73 %) Imm Gran Pct Auto 1.2?H (Ref Range: 0.0-0.4 %) 0.5?H (Ref Range: 0.0-0.4 %) 0.3 (Ref Range: 0.0-0.4 %) Lymphocytes Percent Auto 34.5 (Ref Range: 20-40 %) 29.2 (Ref Range: 20-40 %) 30.8 (Ref Range: 20-40 %) Monocytes Percent Auto 8.6 (Ref Range: 2-11 %) 8.1 (Ref Range: 2-11 %) 7.0 (Ref Range: 2-11 %) Eosinophils Percent Auto 0.9 (Ref Range: 0-4 %) 1.2 (Ref Range: 0-4 %) 1.4 (Ref Range: 0-4 %) Basophils Percent Auto 0.3 (Ref Range: 0-2 %) 0.4 (Ref Range: 0-2 %) 0.5 (Ref Range: 0-2 %) NRBC Pct Auto 0.0 (Ref Range: 0.0-0.2 /100WBC) 0.0 (Ref Range: 0.0-0.2 /100WBC) 0.0 (Ref Range: 0.0-0.2 /100WBC) Neutrophils Absolute Auto 5.0 (Ref Range: 2.0-8.3 x10*3/uL) 4.5 (Ref Range: 2.0-8.3 x10*3/uL) 3.9 (Ref Range: 2.0-8.3 x10*3/uL) Imm Gran Abs Auto 0.11?H (Ref Range: 0.00-0.03 X10*3/uL) 0.04?H (Ref Range: 0.00-0.03 X10*3/uL) 0.02 (Ref Range: 0.00-0.03 X10*3/uL) Lymphocytes Absolute Auto 3.2 (Ref Range: 1.2-4.9 X10*3/uL) 2.2 (Ref Range: 1.2-4.9 X10*3/uL) 2.0 (Ref Range: 1.2-4.9 X10*3/uL) Monocytes Absolute Auto 0.8 (Ref Range: 0.1-1.2 X10*3/uL) 0.6 (Ref Range: 0.1-1.2 X10*3/uL) 0.5 (Ref Range: 0.1-1.2 X10*3/uL) Eosinophils Absolute Auto 0.1 (Ref Range: 0.0-0.4 X10*3/uL) 0.1 (Ref Range: 0.0-0.4 X10*3/uL) 0.1 (Ref Range: 0.0-0.4 X10*3/uL) Basophils Absolute Auto 0.0 (Ref Range: 0.0-0.2 X10*3/uL) 0.0 (Ref Range: 0.0-0.2 X10*3/uL) 0.0 (Ref Range: 0.0-0.2 X10*3/uL) NRBC Abs Auto 0.000 (Ref Range: 0.0-0.012 X10*3/uL) 0.000 (Ref Range: 0.0-0.012 X10*3/uL) 0.000 (Ref Range: 0.0-0.012 X10*3/uL) * Lab:Marleny SwiftDary cobb Fast * Collection Date 02/08/2024 07/07/2023 04/01/2023 Collection Time 10:06 AM 10:24 AM 09:59 AM Order Date 02/08/2024 07/07/2023 04/01/2023 Sodium 143 (Ref Range: 135-145 mmol/L) 142 (Ref Range: 135-145 mmol/L) 143 (Ref Range: 135-145 mmol/L) Bilirubin Total 0.3 (Ref Range: 0.0-1.0 mg/dL) 0.3 (Ref Range: 0.0-1.0 mg/dL) 0.3 (Ref Range: 0.0-1.0 mg/dL) Aspartate Amino Transferase 35?H (Ref Range: 5-31 U/L) 33?H (Ref Range: 5-31 U/L) 36?H (Ref Range: 5-31 U/L) Alanine Aminotransferase 35?H (Ref Range: 0-31 U/L) 32?H (Ref Range: 0-31 U/L) 41?H (Ref Range: 0-31 U/L) Total Protein 7.2 (Ref Range: 6.5-8.0 g/dL) 7.5 (Ref Range: 6.5-8.0 g/dL) 7.0 (Ref Range: 6.5-8.0 g/dL) Albumin Level 4.0 (Ref Range: 3.5-5.0 g/dL) 4.0 (Ref Range: 3.5-5.0 g/dL) 3.9 (Ref Range: 3.5-5.0 g/dL) Alkaline Phosphatase 160?H (Ref Range: 39-117 U/L) 170?H (Ref Range: 39-117 U/L) 165?H (Ref Range: 39-117 U/L) Potassium 4.3 (Ref Range: 3.3-5.1 mmol/L) 4.1 (Ref Range: 3.3-5.1 mmol/L) 4.2 (Ref Range: 3.3-5.1 mmol/L) Chloride 112?H (Ref Range: 96-108 mmol/L) 111?H (Ref Range: 96-108 mmol/L) 108 (Ref Range: 96-108 mmol/L) Carbon Dioxide 24 (Ref Range: 22-29 mmol/L) 23 (Ref Range: 22-29 mmol/L) 28 (Ref Range: 22-29 mmol/L) Anion Gap 11?L (Ref Range: 12-20) 12 (Ref Range: 12-20) 11?L (Ref Range: 12-20) Blood Urea Nitrogen 29?H (Ref Range: 9-16 mg/dL) 21?H (Ref Range: 9-16 mg/dL) 17?H (Ref Range: 9-16 mg/dL) Creatinine 0.78 (Ref Range: 0.5-1.4 mg/dL) 0.70 (Ref Range: 0.5-1.4 mg/dL) 0.79 (Ref Range: 0.5-1.4 mg/dL) Estimated Glomerular Filt Rate > 60 > 60 > 60 Glucose Fasting 130?H (Ref Range: 60-99 mg/dL) 126?H (Ref Range: 60-99 mg/dL) 144?H (Ref Range: 60-99 mg/dL) Calcium 8.6 (Ref Range: 8.4-10.2 mg/dL) 8.6 (Ref Range: 8.4-10.2 mg/dL) 8.6 (Ref Range: 8.4-10.2 mg/dL) ???Lab:RBS/Hemocue glucose (Order Date - 02/16/2024) (Collection Date & Time - 02/16/2024)?ValueReference Range?MIC941 * Examination: ???General Examination: ?GENERAL APPEARANCE:?pleasant, well nourished, well developed, in no acute distress, calm and relaxed, woman.?HEAD:?atraumatic, normocephalic.?EYES:?eomi, perrla, anicteric, conjugate.?EARS:?normal.?NOSE:?septum intact.?ORAL CAVITY:?normal, unremarkable.?NECK/THYROID:?no jugular venous distention, no carotid bruit, thyroid normal.?LYMPH NODES:?no enlarged lymph nodes,spleen normal.?SKIN:?no suspicious lesions, anicteric.?HEART:?no clicks, gallops, murmurs, or rubs, regular rhythm, S1, S2 normal, no s3, or vascular bruits.?LUNGS:?clear to auscultation .?BREASTS:?not examined.?ABDOMEN:?bowel sounds normal, no ascites, no organomegaly, no mass.?RECTAL EXAM:?not examined.?MUSCULOSKELETAL:?extremities unremarkable, no clubbing, cyanosis or edema, Right hemiplegia.?PERIPHERAL PULSES:?normal.?NEUROLOGIC:?alert and oriented, cranial nerves 2-12 grossly intact, deep tendon reflexes 2+ symmetrical, motor strength normal upper and lower extremities, sensory exam intact, Right hemiplegia, aphasia.?PSYCH:?alert, oriented.? Assessment: * Assessment: 1.?DM (diabetes mellitus) - E11.9 (Primary)???Notes :I have encouraged them to agree to treating the diabetes with an JAZZY inhibitor and metformin???2.?Essential hypertension - I10???Notes :Her blood pressure was 115/68 and no change in her regimen was necessary.???3.?Fibromyalgia - M79.7???Notes :Fibromyalgia lately has been low-grade she lives with a without a great deal difficulty. No medical therapies necessary.???4.?Gastro-esophageal reflux disease without esophagitis - K21.9???Notes :She will continue on omeprazole and liquid antacid as needed.???5.?CVA (cerebral vascular accident) - I63.9???Notes :She is currently anticoagulated because of the stroke. She has a dense right hemiplegia, but no further neurological symptoms. She is awake and alert and responsive to questions. Her speech is fluent.???6.?Anticoagulation adequate - Z79.01???Notes :She has had no bleeding and is compliant with her therapy.???7.?Right hemiplegia - G81.91???Notes :There has been no change in the weakness of the right arm and leg. She remains confined to a wheelchair. The weakness in the right arm is dense.???8.?Former smoker - Z87.891???Notes :He is unable to obtain cigarettes. She does not smoke since his stroke. She says she does not want to.???9.?Obesity (BMI 30-39.9) - E66.9???Notes :Her body mass index is 38.. She is dependent upon her family for nutrition and we had a discussion about diet and weight loss today.??? Plan: * Treatment: ? Value Reference Range ?RBS 108 2.?Essential hypertension? Continue Metoprolol Tartrate Tablet, 25 MG, 1 tablet with food, Orally, Twice a day;?Continue Warfarin Sodium Tablet, 4 MG, as directed, Orally, Once a day;?Continue Gabapentin Capsule, 100MG, 1 capsule, Orally, Once a day;?Continue Omeprazole Capsule Delayed Release, 20 MG, 1 capsule 30 minutes before morning meal, Orally, Once a day.?LAB: PROFILE, FASTING (COMPREHENSIVE METABOLIC) ?LAB: CBC WITH AUTO DIFF ?LAB: Lipid Panel3.?Others? Continue Atorvastatin Calcium Tablet, 80 MG, 1 tablet, Orally, Once a day;?Continue FLUoxetineHCl Capsule, 20 MG, 1 capsule, Orally, Once a day;?Continue Docusate Sodium;?Continue diazePAM Tablet, 5 MG, 1 tablet, Orally, every 4 hours for anxiety.?? * Procedure Codes:?74067 ASSAY , GLUCOSE, BLOOD QUANT * Preventive Medicine:? ??Counseling:?Care goal follow-up plan:?Counseling for abnormal BMI given?Yes ?Above Normal BMI Follow-up?Dietary management education, guidance, and counseling, Dietary needs education, Exercise promotion: strength training, Exercise promotion: stretching, Feeding regime, Giving encouragement to exercise, Lifestyle education regarding diet, Nutrition / feeding management, Nutrition therapy, Prescribed activity/exercise education, Prescribed diet education, Prescribed dietary intake, Special diet education, Weight monitoring , Intervention, Order not done: Medical or Other reason not done ?Smoking/Tobacco Use?Patient counseled on the dangers of tobacco use and urged to quit.?02/15/2024 ??DM Care Plan:?Patient Lifestyle Goals?Patient wants to be able to manage diabetes without too much effort.?Treatment Goals?HbA1C < 7.0.?Barriers?no barriers.?Self-Managment Goals?Work on weight loss, with a goal of losing 1 lb per week.? * Follow Up:?As Scheduled (Sabra son: OV, Annual Exam) * Images: * Sign off status: Completed true * Provider:?Jose E Hubbard MD Date:?06/2023 Generated for Michael junior/Kiko/eTransmitting on:?05/12/2024 09:56 AM EST History and Physical Notes * HPI (History of Present Illness) Category Sub-Category Detail Notes COVID-19 Screening Questions Have you had any new onset fever, chills, cough, congestion, sore throat, shortness of breath, muscle aches?: No Have you been exposed to the virus withi n the last 10 days?: No Have you travelled internationally in last 10 days?: No Have you been exposed to COVID-19 in the past?: Yes Examination Category Sub-Category Detail Notes General Examination GENERAL APPEARANCE: pleasant , well nourished, well developed, in no acute distress, calm and relaxed, woman HEAD: atraumatic, normocep halic EYES: eomi, perrla, anicte haydee, conjugate EARS: normal NOSE: septum intact NECK/THYROID: no jugular venous di stention, no carotid bruit, thyroid normal HEART: no clicks, gallops, murmurs, or rubs, regular rhythm, S1, S2 normal, no s3, or vascular bruits LUNGS: clear to auscultatio n ABDOMEN: bowel sounds normal, no ascites, no organomegaly, no mass NEUROLOGIC: alert and oriented, cranial nerves 2-12 grossly intact, deep tendon reflexes 2+ symmetrical, motor strength normal upper and lower extremities, sensory exam intact, Right hemiplegia, aphasia SKIN: no suspicious lesion s, anicteric PERIPHERAL PULSES: normal BREASTS: not examined MUSCULOSKELETAL: extremities unremark able, no clubbing, cyanosis or edema, Right hemiplegia LYMPH NODES: no enlarged lymph no tj,spleen normal RECTAL EXAM: not examined PSYCH: alert, oriented ORAL CAVITY: normal, unremarkable
--- OUTSIDE RECORDS SUMMARY | 2024-05-12 09:56 | XMS_ITS ---
Author Organization Jose E Hubbard III, MD Address [address] [place] [address] [place] [address] Care Team Providers Care Atomic Spectroscopist Name Role Phone Jose E Hubbard Primary Care Provider REASON FOR VISIT Telehealth Social History Sex Assigned At : Social History Observation Description Sex Assigned At Female Encounters Encounter Location Date Provider Diagnosis Jose E Hubbard III, MD [address] [place] [address] [place] [address] 02/10/2024 Jose E Hubbard Plan Of Treatment Next Appt Details Provider Name:Jose E Hubbard, 07/14/2024 10:00:00 AM, [address] [place] [address] [place], [address], Progress Notes * Malu GARCIADOB:1955 ([age] yo F)Acc No.[id number]:02/10/2024 Patient:?Malu GARCIA Provider:?Jose E Hubbard MD :1955???Age:68 Y???Sex:Female D ate:02/10/2024 [address] [facility] [id number] Subjective: * Chief Complaints: * ???1. Telehealth. * Medical History:? Objective: * Vitals:? Assessment: Plan: * Treatment: * Images: * The named appointment provid er may or may not be the originator of this progress note, and it is not deemed complete until electronically signed by the appointment provider. Sign off status: Pending * Provider:?Jose E Hubbard MD Date:?01/16 Generated for Michael junior/Kiko/Petra on:?05/12/2024 09:56 AM EST
[2024-05-12 10:09] LABS: Prothrombin Time Whole Bld POC 23.3 sec (11.1-13.5); ~PT, ~INR - Anti Coag Clinic 1.9 (0.9-1.1)
--- NOTE | 2024-05-12 10:14 | MHC.OFFVISCO ---
Intake Intake Visit Reasons: Anticoagulation Allergies acetaminophen [Percocet] Allergy (Severe, Verified 05/12/24 10:04) ITCHY RASH oxycodone [Percocet] Allergy (Severe, Verified 05/12/24 10:04) Itching Penicillins [PENICILLINS] Allergy (Intermediate, Verified 05/12/24 10:04) itchy rash naproxen [NAPROXEN] Allergy (Unknown, Verified 05/12/24 10:04) STOMACH PAIN Medication List - Last Reconciled 05/12/24 by Cristine Chanel RN acetaminophen ER mg PO atorvastatin 80 mg PO DAILY bisacodyl 10 mg PO BEDTIME chlorhexidine gluconate 0.12% PO docusate sodium 100 mg PO BEDTIME fluoxetine 20 mg PO DAILY gabapentin 100 mg PO DAILY metoprolol tartrate 25 mg PO BID omeprazole 20 mg PO DAILY warfarin 4 mg See Protocol PO DAILY Nursing Note To [facility] via W/C accomp by family member/ CHARACTER IMPERSONATOR Medications and supplements reviewed No changes in health, diet, medications, or supplements, Denies any signs and symptoms of bleeding, bruising, or clotting. Bleeding, bruising, clotting discussed INR: 1.9 denies any missed doses, CHARACTER IMPERSONATOR sts possibly didn't have her usual amount of grape juice this week Dose: increase dose today to 4mg then resume usual dosing tomorrow ( 4mg x 2 days and 2mg x 5 days) F/U INR: 2 weeks family member /CHARACTER IMPERSONATOR verbalizes understanding of instructions given Anti-Coag Initial Assessment Social Hx Patient Tobacco Use Status: Never used Tobacco alcohol intake: never Alcohol intake frequency: does not drink Coding Level of Care Code Est Patient Level 1 Diagnoses Current use of anticoagulant therapy Z79.01 Time Spent (min) 15 Assessment & Plan Assessment & Plan (1) Current use of anticoagulant therapy: Code(s): Z79.01 - intermission coordinator (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
== END 2024-05-12 12:56 | disposition home or self-care (01) ==
LOC: HO.ACS 09:46
PROVIDERS: PCP Internal Medicine Medical Oncology; Visit Provider Internal Medicine
DX: Z79.01 Long term (current) use of anticoagulants (principal)

== ENCOUNTER → 2024-05-12 09:46 | Outpatient (BNVA) | payer MEDICARE, MEDICAID, SELFPAY | PROVIDERS: PCP Internal Medicine Medical Oncology; Visit Provider Internal Medicine | DX: I69.30 Unspecified sequelae of cerebral infarction (principal); Z79.01 Long term (current) use of anticoagulants; Z51.81 Encounter for therapeutic drug level monitoring | CPT/HCPCS: 85610; 99211 ==

== ENCOUNTER 2024-05-29 09:44 | Outpatient (AMB) | payer MEDICARE, MEDICAID, SELFPAY ==
[2024-05-29 09:58] LABS: Prothrombin Time Whole Bld POC 29.1 sec (11.1-13.5); ~PT, ~INR - Anti Coag Clinic 2.4 (0.9-1.1)
--- NOTE | 2024-05-29 10:09 | MHC.OFFVISCO ---
Intake Intake Visit Reasons: Anticoagulation Allergies acetaminophen [Percocet] Allergy (Severe, Verified 05/29/24 09:50) ITCHY RASH oxycodone [Percocet] Allergy (Severe, Verified 05/29/24 09:50) Itching Penicillins [PENICILLINS] Allergy (Intermediate, Verified 05/29/24 09:50) itchy rash naproxen [NAPROXEN] Allergy (Unknown, Verified 05/29/24 09:50) STOMACH PAIN Medication List - Last Reconciled 05/29/24 by Naa Dinh RN acetaminophen ER mg PO atorvastatin 80 mg PO DAILY bisacodyl 10 mg PO BEDTIME chlorhexidine gluconate 0.12% PO docusate sodium 100 mg PO BEDTIME fluoxetine 20 mg PO DAILY gabapentin 100 mg PO DAILY metoprolol tartrate 25 mg PO BID omeprazole 20 mg PO DAILY warfarin 4 mg See Protocol PO DAILY Nursing Note INR: 2.4 in therapeutic range Medications and supplements reviewed- no changes C/O Some abd discomfort - may have been a GI Virus for a few days- had loose stools x 2 days , caregiver stated he will call her PCP Dr Hubbard and call [facility] with nay medication changes. Malu demonstrated she can write her name now Denies any signs and symptoms of bleeding or bruising or clotting. 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
--- OUTSIDE RECORDS SUMMARY | 2024-05-29 10:46 | XMS_ITS | Patient Health Record ---
Author Organization Jose E Hubbard III, MD Address [address] [place] [address] [place] [address] Care Team Providers Care Manager Visual Name Role Phone Jose E Hubbard Primary [...] RBS 108 INR WHOLE BLOOD POC Reviewed date:06/20/2023 06:17:26 AM Interpretation: Performing Lab:[facility], [address] [place] [phone] Notes/Report: PT, INR - [facility] 2.2 0.9-1.1 METER #: [id number] INTERNATIONAL NORMALIZED RATIO (INR) REFERENCE RANGES Reference [...] OC Reviewed date:06/20/2023 06:17:26 AM Interpretation: Performing Lab:[facility], [address] [place] [phone] Notes/Report: Prothrombin Time Whole Bld POC 26.0 11.1-13.5 sec INR WHOLE BLOOD POC Reviewed date:07/04/2023 10:11:31 AM Interpretation: Performing Lab:[facility], [address] [place] [phone] Notes/Report: PT, INR - [facility] 2.6 0.9-1.1 METER #: [id number] INTERNATIONAL NORMALIZED RATIO (INR) REFERENCE RANGES Reference [...] OC Reviewed date:07/04/2023 10:11:31 AM Interpretation: Performing Lab:[facility], [address] [place] [phone] Notes/Report: Prothrombin Time Whole Bld POC 31.0 11.1-13.5 sec Complete Blood Count Auto Di ff Reviewed date:07/13/2023 10:14:35 AM Interpretation: Performing Lab:[address] [phone] Notes/Report: White Blood Count 7.4 4.8-10.8 X10*3/uL [...] NRBC Abs Auto 0.000 0.0-0.012 X10*3/uL Comprehensive Meldrim. Panel Fa st Reviewed date:07/13/2023 10:14:35 AM Interpretation: Performing Lab:[facility], [address] [place] [phone] Notes/Report: Sodium 142 135-145 mmol/L Potassium 4.1 3.3-5.1 mmol/L Chloride 111 96-108 mmol/L Carbon Dioxide 23 22-29 mmol/L Anion Gap 12 12-20 Blood Urea Nitrogen 21 9-16 mg/dL Creatinine 0.70 0.5-1.4 mg/dL Estimated Glomerular Filt Rate > 60 NOTE: For -Citizen Of [place] individuals, multiply the result by 1.210. Chronic [...] Panel Reviewed date:07/13/2023 10:14:35 AM Interpretation: Performing Lab:[facility], [address] [place] [phone] Notes/Report: Triglycerides 75 <150 mg/dL Desirable Triglyceride: [...] POC Reviewed date:07/25/2023 01:30:52 PM Interpretation: Performing Lab:[facility], [address] [place] [phone] Notes/Report: PT, INR - [facility] 2.9 0.9-1.1 METER #: [id number] INTERNATIONAL NORMALIZED RATIO (INR) REFERENCE RANGES Reference [...] OC Reviewed date:07/25/2023 01:30:52 PM Interpretation: Performing Lab:[facility], [address] [place] [phone] Notes/Report: Prothrombin Time Whole Bld POC 35.2 11.1-13.5 sec INR WHOLE BLOOD POC Reviewed date:08/14/2023 08:08:00 AM Interpretation: Performing Lab:[facility], [address] [place] [phone] Notes/Report: PT, INR - [facility] 2.6 0.9-1.1 METER #: [id number] INTERNATIONAL NORMALIZED RATIO (INR) REFERENCE RANGES Reference [...] OC Reviewed date:08/14/2023 08:08:00 AM Interpretation: Performing Lab:[facility], [address] [place] [phone] Notes/Report: Prothrombin Time Whole Bld POC 31.8 11.1-13.5 sec INR WHOLE BLOOD POC Reviewed date:09/03/2023 03:13:16 PM Interpretation: Performing Lab:[facility], [address] [place] [phone] Notes/Report: PT, INR - [facility] 2.2 0.9-1.1 METER #: [id number] INTERNATIONAL NORMALIZED RATIO (INR) REFERENCE RANGES Reference [...] OC Reviewed date:09/03/2023 03:13:16 PM Interpretation: Performing Lab:[facility], [address] [place] [phone] Notes/Report: Prothrombin Time Whole Bld POC 26.2 11.1-13.5 sec INR WHOLE BLOOD POC Reviewed date:09/26/2023 06:29:56 AM Interpretation: Performing Lab:[facility], [address] [place] [phone] Notes/Report: PT, INR - [facility] 3.1 0.9-1.1 METER #: [id number] INTERNATIONAL NORMALIZED RATIO (INR) REFERENCE RANGES Reference [...] OC Reviewed date:09/26/2023 06:29:56 AM Interpretation: Performing Lab:[facility], [address] [place] [phone] Notes/Report: Prothrombin Time Whole Bld POC 37.4 11.1-13.5 sec INR WHOLE BLOOD POC Reviewed date:10/15/2023 08:46:13 PM Interpretation: Performing Lab:[facility], [address] [place] [phone] Notes/Report: PT, INR - [facility] 2.9 0.9-1.1 METER #: [id number] INTERNATIONAL NORMALIZED RATIO (INR) REFERENCE RANGES Reference [...] OC Reviewed date:10/15/2023 08:46:13 PM Interpretation: Performing Lab:[facility], [address] [place] [phone] Notes/Report: Prothrombin Time Whole Bld POC 34.2 11.1-13.5 sec INR WHOLE BLOOD POC Reviewed date:11/06/2023 05:26:31 AM Interpretation: Performing Lab:[facility], [address] [place] [phone] Notes/Report: PT, INR - [facility] 2.5 0.9-1.1 METER #: [id number] INTERNATIONAL NORMALIZED RATIO (INR) REFERENCE RANGES Reference [...] OC Reviewed date:11/06/2023 05:26:31 AM Interpretation: Performing Lab:[facility], [address] [place] [phone] Notes/Report: Prothrombin Time Whole Bld POC 30.1 11.1-13.5 sec INR WHOLE BLOOD POC Reviewed date:12/07/2023 06:47:16 AM Interpretation: Performing Lab:[facility], [address] [place] [phone] Notes/Report: PT, INR - [facility] 3.6 0.9-1.1 METER #: [id number] INTERNATIONAL NORMALIZED RATIO (INR) REFERENCE RANGES Reference [...] OC Reviewed date:12/07/2023 06:47:16 AM Interpretation: Performing Lab:[facility], [address] [place] [phone] Notes/Report: Prothrombin Time Whole Bld POC 43.1 11.1-13.5 sec INR WHOLE BLOOD POC Reviewed date:12/17/2023 08:58:55 PM Interpretation: Performing Lab:[facility], [address] [place] [phone] Notes/Report: PT, INR - [facility] 3.4 0.9-1.1 METER #: [id number] INTERNATIONAL NORMALIZED RATIO (INR) REFERENCE RANGES Reference [...] OC Reviewed date:12/17/2023 08:58:55 PM Interpretation: Performing Lab:[facility], [address] [place] [phone] Notes/Report: Prothrombin Time Whole Bld POC 40.6 11.1-13.5 sec INR WHOLE BLOOD POC Reviewed date:01/02/2024 06:34:15 AM Interpretation: Performing Lab:[facility], [address] [place] [phone] Notes/Report: PT, INR - [facility] 3.6 0.9-1.1 METER #: [id number] INTERNATIONAL NORMALIZED RATIO (INR) REFERENCE RANGES Reference [...] OC Reviewed date:01/02/2024 06:34:15 AM Interpretation: Performing Lab:[facility], [address] [place] [phone] Notes/Report: Prothrombin Time Whole Bld POC 42.9 11.1-13.5 sec INR WHOLE BLOOD POC Reviewed date:01/12/2024 11:07:47 AM Interpretation: Performing Lab:[facility], [address] [place] [phone] Notes/Report: PT, INR - [facility] 3.1 0.9-1.1 METER #: [id number] INTERNATIONAL NORMALIZED RATIO (INR) REFERENCE RANGES Reference [...] OC Reviewed date:01/12/2024 11:07:47 AM Interpretation: Performing Lab:[facility], [address] [place] [phone] Notes/Report: Prothrombin Time Whole Bld POC 37.0 11.1-13.5 sec INR WHOLE BLOOD POC Reviewed date:01/25/2024 04:12:11 PM Interpretation: Performing Lab:[facility], [address] [place] [phone] Notes/Report: PT, INR - [facility] 2.2 0.9-1.1 METER #: [id number] INTERNATIONAL NORMALIZED RATIO (INR) REFERENCE RANGES Reference [...] OC Reviewed date:01/25/2024 04:12:11 PM Interpretation: Performing Lab:[facility], [address] [place] [phone] Notes/Report: Prothrombin Time Whole Bld POC 26.6 11.1-13.5 sec Complete Blood Count Auto Di ff Reviewed date:02/09/2024 06:31:48 AM Interpretation: Performing Lab:[facility], [address] [place] [phone] Notes/Report: White Blood Count 9.2 4.8-10.8 X10*3/uL [...] NRBC Abs Auto 0.000 0.0-0.012 X10*3/uL Comprehensive Meldrim. Panel Fa st Reviewed date:02/09/2024 06:31:49 AM Interpretation: Performing Lab:[facility], [address] [place] [phone] Notes/Report: Sodium 143 135-145 mmol/L Potassium 4.3 3.3-5.1 mmol/L Chloride 112 96-108 mmol/L Carbon Dioxide 24 22-29 mmol/L Anion Gap 11 12-20 Blood Urea Nitrogen 29 9-16 mg/dL Creatinine 0.78 0.5-1.4 mg/dL Estimated Glomerular Filt Rate > 60 NOTE: For -Citizen Of [place] individuals, multiply the result by 1.210. Chronic [...] Panel Reviewed date:02/09/2024 06:31:49 AM Interpretation: Performing Lab:[address] [phone] Notes/Report: Triglycerides 75 <150 mg/dL Desirable Triglyceride: [...] POC Reviewed date:02/09/2024 06:31:48 AM Interpretation: Performing Lab:[address] [phone] Notes/Report: PT, INR - [facility] 3.0 0.9-1.1 METER #: [id number] INTERNATIONAL NORMALIZED RATIO (INR) REFERENCE RANGES Reference [...] OC Reviewed date:02/09/2024 06:31:48 AM Interpretation: Performing Lab:[facility], [address] [place] [phone] Notes/Report: Prothrombin Time Whole Bld POC 36.0 11.1-13.5 sec Hemoglobin A1c Reviewed date:02/09/2024 06:31:48 AM Interpretation: Performing Lab:[facility], [address] [place] [phone] Notes/Report: Hemoglobin A1c % 7.5 <6.0 % [...] average glucose, using the formula of the Q5G-Kqiiezd Average Glucose study (ADAG), Diabetes Care, Vol.31,#8, Dec. 2007 INR WHOLE BLOOD POC Reviewed date:02/23/2024 11:26:27 AM Interpretation: Performing Lab:[facility], [address] [place] [phone] Notes/Report: PT, INR - [facility] 2.4 0.9-1.1 METER #: [id number] INTERNATIONAL NORMALIZED RATIO (INR) REFERENCE RANGES Reference [...] OC Reviewed date:02/23/2024 11:26:27 AM Interpretation: Performing Lab:[facility], [address] [place] [phone] Notes/Report: Prothrombin Time Whole Bld POC 28.8 11.1-13.5 sec INR WHOLE BLOOD POC Reviewed date:03/14/2024 03:12:08 PM Interpretation: Performing Lab:[facility], [address] [place] [phone] Notes/Report: PT, INR - [facility] 2.6 0.9-1.1 METER #: [id number] INTERNATIONAL NORMALIZED RATIO (INR) REFERENCE RANGES Reference [...] OC Reviewed date:03/14/2024 03:12:08 PM Interpretation: Performing Lab:[facility], [address] [place] [phone] Notes/Report: Prothrombin Time Whole Bld POC 30.7 11.1-13.5 sec INR WHOLE BLOOD POC Reviewed date:03/28/2024 02:06:07 PM Interpretation: Performing Lab:[facility], [address] [place] [phone] Notes/Report: PT, INR - [facility] 2.4 0.9-1.1 METER #: [id number] INTERNATIONAL NORMALIZED RATIO (INR) REFERENCE RANGES Reference [...] OC Reviewed date:03/28/2024 02:06:07 PM Interpretation: Performing Lab:[facility], [address] [place] [phone] Notes/Report: Prothrombin Time Whole Bld POC 29.2 11.1-13.5 sec INR WHOLE BLOOD POC Reviewed date:04/04/2024 09:01:19 PM Interpretation: Performing Lab:[facility], [address] [place] [phone] Notes/Report: PT, INR - [facility] 2.4 0.9-1.1 METER #: [id number] INTERNATIONAL NORMALIZED RATIO (INR) REFERENCE RANGES Reference [...] OC Reviewed date:04/04/2024 09:01:19 PM Interpretation: Performing Lab:[facility], [address] [place] [phone] Notes/Report: Prothrombin Time Whole Bld POC 28.9 11.1-13.5 sec INR WHOLE BLOOD POC Reviewed date:04/24/2024 05:20:08 AM Interpretation: Performing Lab:[facility], [address] [place] [phone] Notes/Report: PT, INR - [facility] 2.6 0.9-1.1 METER #: [id number] INTERNATIONAL NORMALIZED RATIO (INR) REFERENCE RANGES Reference [...] OC Reviewed date:04/24/2024 05:20:08 AM Interpretation: Performing Lab:[facility], [address] [place] [phone] Notes/Report: Prothrombin Time Whole Bld POC 31.6 11.1-13.5 sec INR WHOLE BLOOD POC Reviewed date:05/12/2024 04:18:48 PM Interpretation: Performing Lab:[address] [phone] Notes/Report: PT, INR - [facility] 1.9 0.9-1.1 METER #: [id number] INTERNATIONAL NORMALIZED RATIO (INR) REFERENCE RANGES Reference [...] Prothrombin Time Whole Bld P OC Reviewed date:05/12/2024 04:18:48 PM Interpretation: Performing Lab:[facility], [address] [place] [phone] Notes/Report: Prothrombin Time Whole Bld POC 23.3 11.1-13.5 sec INR WHOLE BLOOD POC (Not yet reviewed by provider) Interpretation: Performing Lab:[facility], [address] [place] [phone] Notes/Report: PT, INR - [facility] 2.4 0.9-1.1 METER #: [id number] INTERNATIONAL NORMALIZED RATIO (INR) REFERENCE RANGES Reference [...] 3.5 Prothrombin Time Whole Bld P OC (Not yet reviewed by provider) Interpretation: Performing Lab:[facility], [address] [place] [phone] Notes/Report: Prothrombin Time Whole Bld POC 29.1 11.1-13.5 sec Reason For Referral No Information [...] Problem Status W/U Status Risk Notes Problem 0614572 Former smoker (Z87.891) Active confirmed He is unable to obtain cigarettes. She does not smoke since his stroke. She says she does not want to. Problem 29999705 Fibromyalgia (M79.7) Active confirmed Fibromyalgia lately has been low-grade she lives with a without a great deal difficulty. No medical therapies necessary. Problem DM - Diabetes mellitus (53611624) DM (diabetes mellitus) (E11.9) Active confirmed I have encouraged them to agree to treating the diabetes with an JAZZY inhibitor and metformin Problem Hyperglycemia (91755381) Hyperglycemia (R73.9) Active confirmed Problem 458643688 Gastro-esophagea l reflux disease without esophagitis (K21.9) Active confirmed She will continue on omeprazole and liquid antacid as needed. Problem 09878532 Essential hypertension (I10) Active confirmed Low Her blood pressure was 115/68 and no change in her regimen was necessary. Problem 750669032 Anticoagulation adequate (Z79.01) Active confirmed She has had no bleeding and is compliant with her therapy. Problem CVA - Cerebrovascular accident (549282808) CVA (cerebral vascular accident) (I63.9) Active confirmed She is currently anticoagulated because of the stroke. She has a dense right hemiplegia, but no further neurological symptoms. She is awake and alert and responsive to questions. Her speech is fluent. Problem 940009730 Morbid obesity (E66.01) Active confirmed He discussed her overweight status. We discussed diet and nutrition. We made plans for her to lose weight at a rate of one half of a pound per week. Problem 931051848 Gallstones (K80.20) Active confirmed She remains free of symptoms from her cholelithiasis. Problem Right hemiplegia (676215625) Right hemiplegia (G81.91) Active confirmed There has been no change in the weakness of the right arm and leg. She remains confined to a wheelchair. The weakness in the right arm is dense. Problem 198918284 Type 2 diabetes mellitus without complication, without [...] Provider Diagnosis Jose E Hubbard III, MD [address] [place] [address] [place] [address] 07/13/2023 Jose E Hubbard Essential hypertensi on I10 ; Morbid obesity E66.01 ; Type 2 diabetes mellitus without complication, without long-term current use of insulin E11.9 ; Anticoagulation adequate Z79.01 ; CVA (cerebral vascular accident) I63.9 ; Gastro-esophageal reflux disease without esophagitis K21.9 and Right hemiplegia G81.91 Jose E Hubbard III, MD [address] [place] [address] [place] [address] 11/16/2023 Jose E Hubbard Essential hypertensi on I10 ; Type 2 diabetes mellitus without complication, without long-term current use of insulin E11.9 ; Fibromyalgia M79.7 ; Gastro-esophageal reflux disease without esophagitis K21.9 ; CVA (cerebral vascular accident) I63.9 ; Anticoagulation adequate Z79.01 and Right hemiplegia G81.91 Jose E Hubbard III, MD [address] [place] [address] [place] [address] 01/25/2024 Jose E Hubbard Essential hypertensi on I10 ; Morbid obesity E66.01 ; Type 2 diabetes mellitus without complication, without long-term current use of insulin E11.9 ; Fibromyalgia M79.7 ; Gastro-esophageal reflux disease without esophagitis K21.9 ; CVA (cerebral vascular accident) I63.9 ; Anticoagulation adequate Z79.01 ; Right hemiplegia G81.91 and Former smoker Z87.891 Jose E Hubbard III, MD [address] [place] [address] [place] [address] 02/16/2024 Jose E Hubbard Essential hypertensi on I10 ; DM (diabetes mellitus) E11.9 ; Fibromyalgia M79.7 ; Gastro-esophageal reflux disease without esophagitis K21.9 ; CVA (cerebral vascular accident) I63.9 ; Anticoagulation adequate Z79.01 ; Right hemiplegia G81.91 ; Former smoker Z87.891 and Obesity (BMI 30-39.9) E66.9 Jose E Hubbard III, MD [address] [place] [address] [place] [address] 06/14/2023 Jose E Hubbard Essential hypertensi on I10 Jose E Hubbard III, MD [address] [place] [address] [place] [address] 09/15/2023 Jose E Hubbard Essential hypertensi on I10 Jose E Hubbard III, MD [address] [place] [address] [place] [address] 10/20/2023 Jose E Hubbard III, MD [address] [place] [address] [place] [address] 11/08/2023 Jose E Hubbard III, MD [address] [place] [address] [place] [address] 12/15/2023 Jose E Hubbard Essential hypertensi on I10 Jose E Hubbard III, MD [address] [place] [address] [place] [address] 12/24/2023 Jose E Hubbard Essential hypertensi on I10 Jose E Hubbard III, MD [address] [place] [address] [place] [address] 03/17/2024 Jose E Hubbard Assessments Encounter Date [...] Order Date PROFILE, FASTING (COMPREHENSIVE METABOLI C) 11/10/2021 PROFILE, FASTING (COMPREHENSIVE METABOLI C) 09/02/2020 PROFILE, FASTING (COMPREHENSIVE METABOLI C) 04/07/2023 PROFILE, [...] PROFILE, FASTING (COMPREHENSIVE METABOLI C) 03/05/2020 PROFILE, RANDOM (COMPREHENSIVE METABOLIC ) 10/23/2021 PROFILE, RANDOM (COMPREHENSIVE METABOLIC ) 04/20/2019 HEMOGLOBIN A1C (GLYCOHEMOGLOBIN) 023 LIPID PANEL 06/15/2019 LIPID PANEL 07/08/2022 LIPID PANEL 03/05/2020 LIPID PANEL 09/02/2020 LIPID PANEL 04/20/2019 LIPID PANEL 04/15/2022 LIPID PANEL 01/09/2020 LIPID PANEL 01/05/2023 LIPID PANEL 06/03/2020 LIPID PANEL 02/10/2022 LIPID PANEL 10/05/2022 LIPID PANEL 10/13/2018 MICROALBUMIN, RANDOM 01/05/2023 CBC w DIFF 10/05/2022 CBC w DIFF 10/13/2018 CBC w DIFF 06/15/2019 CBC w DIFF 11/10/2021 CBC w DIFF 07/08/2022 CBC w DIFF 10/23/2021 CBC w DIFF 03/05/2020 CBC w DIFF 04/07/2023 CBC w DIFF 09/02/2020 CBC w DIFF 04/20/2019 CBC w DIFF 04/15/2022 CBC w DIFF 01/09/2020 CBC w DIFF 06/03/2020 CBC w DIFF 02/10/2022 CBC w DIFF 01/05/2023 PROTHROMBIN TIME (PT, INR) 04/15/2020 URINE CULTURE 06/26/2020 ROUTINE CULTURE 12/05/2014 XR CHEST 2 VIEW PA & LAT 08/04/2022 MAMMOGRAM DIGITAL BILATERAL SCREEN 09/15 US ABD 02/10/2022 US ABD 09/15/2021 US BREAST LEFT ([facility]) 03/08/20 17 CBC WITH AUTO DIFF 02/16/2024 CBC WITH AUTO DIFF 11/16/2023 CBC WITH AUTO DIFF 07/13/2023 Urinalysis 06/26/2020 Lipid Panel 07/13/2023 Lipid Panel 02/16/2024 Lipid Panel 11/10/2021 Lipid Panel 04/07/2023 Lipid Panel 11/16/2023 INR WHOLE BLOOD POC 05/29/2024 Prothrombin Time Whole Bld POC 5 T Spot TB 08/04/2022 US abdomen complete 07/08/2022 Next Appt Details Provider Name:Jose E Hubbard, 07/14/2024 10:00:00 AM, [address] [place] [address] [address]I [address]ita, [place], [address], Insurance Providers Payer Name Payer Address Payer Phone Subscriber Number Group Number Insured Name Patient Relationship to Insured Coverage Start Date Coverage End Date MEDICARE NGS [address] [facility] [place] [address] [phone] [id number] JoseMalu Self - patient is the insured MEDICAID [address] [place], [place] [id number] [phone] [id number] Malu Garcia Self - patient is the insured Medical (General) History Medical History History ICD Code gerd degenerative disc disease cervical spine plantar warts gastritis fibromyalgia right shoulder pain essential hypertension left hemisphere infarction right hemiparasis chronic anticoagulation Tinea unguium B35.1 Plantar wart B07.0 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 Chela Davila 03/2022 Hospitalization History Reason Date(Month/Year) stroke 07/05
--- OUTSIDE RECORDS SUMMARY | 2024-05-29 10:46 | XMS_ITS ---
Author Organization Jose E Hubbard III, MD Address [address] [place] [address] [place] [address] Care Team Providers Care Material Chaser Name Role Phone Jose E Hubbard Primary Care Provider REASON FOR VISIT Telehealth Social History Sex Assigned At : Social History Observation Description Sex Assigned At Female Encounters Encounter Location Date Provider Diagnosis Jose E Hubbard III, MD [address] [place] [address] [place] [address] 02/10/2024 Jose E Hubbard Plan Of Treatment Next Appt Details Provider Name:Jose E Hubbard, 07/14/2024 10:00:00 AM, [address] [place] [address] [place], [address], Progress Notes * Malu GARCIADOB:1955 ([age] yo F)Acc No.[id number]:02/10/2024 Patient:?Malu GARCIA Provider:?Jose E Hubbard MD :1955???Age:68 Y???Sex:Female D ate:02/10/2024 [address] [id number] Subjective: * Chief Complaints: * ???1. Telehealth. * Medical History:? Objective: * Vitals:? Assessment: Plan: * Treatment: * Images: * The named appointment provid er may or may not be the originator of this progress note, and it is not deemed complete until electronically signed by the appointment provider. Sign off status: Pending * Provider:?Jose E Hubbard MD Date:?01/16 Generated for Michael junior/Kiko/Petra on:?05/29/2024 10:46 AM EST
--- OUTSIDE RECORDS SUMMARY | 2024-05-29 10:46 | XMS_ITS ---
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 Name Role Phone Jose E Hubbard Primary [...] Risk Notes Problem DM - Diabetes mellitus (86163758) DM (diabetes mellitus) (E11.9) Active confirmed I [...] Provider Diagnosis Jose E Hubbard III, MD [address] [place] [address] [place] [address] 02/16/2024 Jose E Hubbard Essential hypertensi on [...] Provider Name:Jose E Hubbard, 07/14/2024 10:00:00 AM, [address] [place] [address] , [place] [address], [place], [address], Progress Notes * Malu GARCIADOB:1955 ([age] yo F)Acc No.[id number]:02/16/2024 Progress Notes Patient:?Malu GARCIA Provider:?Jose E Hubbard MD :1955???Age:68 Y???Sex:Female D ate:02/16/2024 Address:[address] [place] [address] [address] [id number] Subjective: * Chief Complaints: * ???Adult onset [...] Medical History:? * Surgical History:?Negative c olonoscopy, [facility], Dr. York 03/2022 * Hospitalization/Major Diagno [...] Findings: Tobacco Non-User?Ex-cigarette smoker ???She lives in [place]. She was born in [place], [place]. She has been since 1997 and [...] 02/16/2024) (Collection Date & Time - 02/16/2024)?ValueReference Range?[id number] * Examination: ???General Examination: ?GENERAL APPEARANCE:?pleasant, well [...] every 4 hours for anxiety.?? * Procedure Codes:?34029 ASSAY , GLUCOSE, BLOOD QUANT * Preventive [...] lb per week.? * Follow Up:?As Scheduled ([place] son: OV, Annual Exam) * Images: * Sign off status: Completed true * Provider:?Jose E Hubbard MD Date:?06/2023 Generated for Michael junior/Kiko/eTransmitting on:?05/29/2024 10:46 AM EST History and Physical Notes * [...]
== END 2024-05-29 10:15 | disposition home or self-care (01) ==
LOC: HO.ACS 09:44
PROVIDERS: PCP Internal Medicine Medical Oncology; Visit Provider Internal Medicine
DX: Z79.01 Long term (current) use of anticoagulants (principal)

== ENCOUNTER → 2024-05-29 09:44 | Outpatient (BNVA) | payer MEDICARE, MEDICAID, SELFPAY | PROVIDERS: PCP Internal Medicine Medical Oncology; Visit Provider Internal Medicine | DX: I69.30 Unspecified sequelae of cerebral infarction (principal); Z79.01 Long term (current) use of anticoagulants; Z51.81 Encounter for therapeutic drug level monitoring | CPT/HCPCS: 85610; 99211 ==

== ENCOUNTER 2024-06-19 10:12 | Outpatient (AMB) | payer MEDICARE, MEDICAID, SELFPAY ==
[2024-06-19 10:27] LABS: Prothrombin Time Whole Bld POC 26.9 sec (11.1-13.5); ~PT, ~INR - Anti Coag Clinic 2.2 (0.9-1.1)
--- NOTE | 2024-06-19 10:34 | MHC.OFFVISCO ---
Intake Intake Visit Reasons: Anticoagulation Allergies acetaminophen [Percocet] Allergy (Severe, Verified 06/19/24 10:20) ITCHY RASH oxycodone [Percocet] Allergy (Severe, Verified 06/19/24 10:20) Itching Penicillins [PENICILLINS] Allergy (Intermediate, Verified 06/19/24 10:20) itchy rash naproxen [NAPROXEN] Allergy (Unknown, Verified 06/19/24 10:20) STOMACH PAIN Medication List - Last Reconciled 06/19/24 by Naa Dinh RN acetaminophen ER mg PO atorvastatin 80 mg PO DAILY bisacodyl 10 mg PO BEDTIME chlorhexidine gluconate 0.12% PO docusate sodium 100 mg PO BEDTIME fluoxetine 20 mg PO DAILY gabapentin 100 mg PO DAILY metoprolol tartrate 25 mg PO BID omeprazole 20 mg PO DAILY warfarin 4 mg See Protocol PO DAILY Nursing Note Pt came as usual with home health care coordinator Darryl via wheel chair feeling well today, last visit she had a little GI uspest INR: 2.2 in therapeutic range Medications and supplements reviewed No changes in health, diet, medications, or supplements, Denies any signs and symptoms of bleeding or bruising or clotting. Bleeding, bruising, clotting discussed Nutritional guidance given Dose: 4MG X 2 DAYS/ 2MG X 5 DAYS F/U INR: 3 WEEKS Patient verbalizes understanding of instructions given Anti-Coag Initial Assessment Social Hx Patient Tobacco Use Status: Never used Tobacco alcohol intake: never Alcohol intake frequency: does not drink Coding Level of Care Code Est Patient Level 1 Diagnoses Current use of anticoagulant therapy Z79.01 Assessment & Plan Assessment & Plan (1) Current use of anticoagulant therapy: Code(s): Z79.01 - halfway (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
--- OUTSIDE RECORDS SUMMARY | 2024-06-19 10:53 | XMS_ITS | Clinical Summary ---
Author Organization [employer] Address [address] [place] [address] Care Team Providers Care Associate Artistic Director Name Role Phone Unavailable Primary Care Provider Unavailabl e Allergies Active Allergy Reactions Criticality Noted Date Comments Miconazole Nitrate 03/28/2024 Other Reaction(s): burning Oxycodone-Acetaminophen Unknown 03/06/2024 Penicillin G 03/06/2024 Medications atorvastatin (Lipitor) 80 MG tablet 1 tablet in the morning. Active FLUoxetine (PROzac) 20 MG capsule 1 capsule in the morning. Active metoprolol tartrate (Lopressor) 25 MG tablet 1 tablet 2 times daily. Active omeprazole (PriLOSEC) [address] capsule daily. Active warfarin (Coumadin) 4 MG tablet daily. Active gabapentin (Neurontin) 100 MG capsule 1 capsule in the morning. Active diazePAM (Valium) 5 MG tablet 1 tablet. 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 Encounters Date Type Department Care Team Description 03/28/2024 10:30 AM EST Office Visit [facility] [address] [place] [address] Soren Huber DDS Periodontal disease (Primary Dx); Dental abscess; Severe dental caries from Last 3 Months Social History Tobacco Use Types Packs/Day Years Used Date Smoking Tobacco: Never Smokeless Tobacco: Never Tobacco Cessation:Counseling Given: Not Answered Alcohol Use Standard Drinks/Week Comments Never 0 (1 standard drink = 0.6 oz pur e alcohol) Comments Unknown Sex and Gender Information Value Date Recorded Sex Assigned at Female 03/06/2024 8:42 AM EDT Legal Sex Female 8:37 AM EDT Gender Identity Female 03/06/2024 8:42 AM EDT Sexual Orientation Straight 03/06/2024 8: 42 AM EDT Last Filed Vital Signs Vital Sign Reading Time Taken Comments Blood Pressure 118/72 03/28/2024 10:20 AM EST Pulse - - Temperature - - Respiratory Rate - - Oxygen Saturation - - Inhaled Oxygen Concentration - - Weight - - Height - - Body Mass Index - - Plan of Treatment Health Maintenance Due Date Last Done Comments CT Colonography 1955 Colonoscopy 1955 Colorectal Cancer Screening 1955 Dental Oral Exam 1955 Dental Prophylaxis 1955 Dental X-Ray: Bitewings 1955 Dental X-Ray: Full Mouth 1955 Depression Screening 1955 Diabetes: Hemoglobin A1C 1955 FIT DNA/Cologuard 1955 FIT 1955 FOBT 1955 Lipid Panel 1955 SDOH Screening 1955 Sigmoidoscopy 1955 Diabetes: Foot Exam 10/27/1965 Eye Exam 10/27/1965 Alcohol/Substance Use Screening 1967 Hepatitis C Screening 10/27/1973 DTaP/Tdap/Td Vaccines (1 - Tdap) 10/27/1974 Diabetes: Urine Protein Screening 10/27/1974 Pneumococcal Vaccine: 50+ Years (1 of 2 - PCV) 10/27/1974 Mammogram 1995 Zoster Vaccines (1 of 2) 10/27/2005 COVID-19 Vaccine (2 - 2023-2 5 season) 2024 08/21/2020 Influenza Vaccine (#1) 2024 , 03/11/2017, 03/11/2016 Tobacco Screening 03/28/2025 03/28/2024 RSV Patients and Patients Aged 60 years or older (1 - 1-dose 75+ series) 10/27/2030 HIB Vaccines Aged Out No longer eligi ble based on patient's age to complete this topic HPV Vaccines Aged Out No longer eligi ble based on patient's age to complete this topic Hepatitis A Vaccines Aged Out No long er eligible based on patient's age to complete this topic Hepatitis B Vaccines Aged Out No long er eligible based on patient's age to complete this topic IPV Vaccines Aged Out No longer eligi ble based on patient's age to complete this topic Meningococcal Vaccine Aged Out No hannah chaitanya eligible based on patient's age to complete this topic RSV under 20 months Aged Out No longe r eligible based on patient's age to complete this topic Rotavirus Vaccines Aged Out No longer eligible based on patient's age to complete this topic Procedures Procedure Name Priority Date/Time Associated Diagnosis Comments ADJUNCTIVE GENERAL SERVICES - PROFESSIONAL VISITS - CASE PRESENTATION, SUBSEQUENT TO DETAILED AND EXTENSIVE TREATMENT PLANNING Routine 03/28/2024 10:30 AM EST 29 EXTRACTION, ERUPTED TOOTH OR EXPOSED ROOT (ELEVATION AND/OR FORCEPS REMOVAL) Routine 03/28/2024 10:30 AM EST 28 EXTRACTION, ERUPTED TOOTH OR EXPOSED ROOT (ELEVATION AND/OR FORCEPS REMOVAL) Routine 03/28/2024 10:30 AM EST from Last 3 Months Insurance DENTAL-[facility] MEDICAID STAND ADULT
--- OUTSIDE RECORDS SUMMARY | 2024-06-19 10:53 | XMS_ITS | Clinical Summary ---
Author Organization [employer] [facility] ity Address [address] [place] [address] Care Team Providers Care Litigation Associate Name Role Phone Unavailable Primary Care Provider Unavailabl e Social History Tobacco Use Types Packs/Day Years Used Date Smoking Tobacco: Never Assessed Sex and Gender Information Value Date Recorded Sex Assigned at Not on file Gender Identity Not on file Sexual Orientation Not on file Plan of Treatment Health Maintenance Due Date Last Done Comments Breast Cancer Screening 1955 DTaP,Tdap,and Td Vaccines (1 - Tdap) 10/27/1974 Zoster Vaccines (1 of 2) 10/27/2005 Pneumococcal Vaccine: 65+ Ye ars (1 of 1 - PCV) 10/27/2020 COVID-19 Vaccine (1 - 2023-2 5 season) 2024 Influenza Vaccine (#1) 2024 RSV Immunization Patients 60 + Years Old (1 - 1-dose 75+ series) 10/27/2030 HIB [...] on patient's age to complete this topic MMR Vaccines Aged Out No longer eligi ble based on patient's age to complete this topic Meningococcal ACWY Vaccine Aged Out N o longer eligible based on patient's age to complete this topic RSV Immunization Patients Un raymundo 20 months Aged Out No longer eligible b ased on patient's age to complete this topic Varicella Vaccines Aged Out No longer eligible based on patient's age to complete this topic Advance Directives Documents on File Type Date Recorded Patient Pega Developer Expl anation Health Care Decision (hx) 07/20/[address]IVE
== END 2024-06-19 10:38 | disposition home or self-care (01) ==
LOC: HO.ACS 10:12
PROVIDERS: PCP Internal Medicine Medical Oncology; Visit Provider Internal Medicine
DX: Z79.01 Long term (current) use of anticoagulants (principal)

== ENCOUNTER → 2024-06-19 10:12 | Outpatient (BNVA) | payer MEDICARE, MEDICAID, SELFPAY | PROVIDERS: PCP Internal Medicine Medical Oncology; Visit Provider Internal Medicine | DX: Z86.73 Personal history of transient ischemic attack (TIA), and cerebral infarction without residual deficits (principal); Z79.01 Long term (current) use of anticoagulants; Z51.81 Encounter for therapeutic drug level monitoring | CPT/HCPCS: 85610; 99211 ==

== ENCOUNTER 2024-06-27 10:12 | Outpatient (AMB) | payer MEDICARE, MEDICAID, SELFPAY ==
--- NOTE | 2024-06-27 10:33 | MHC.OFFVISCO ---
Intake Intake Visit Reasons: Anticoagulation Allergies acetaminophen [Percocet] Allergy (Severe, Verified 06/27/24 10:21) ITCHY RASH oxycodone [Percocet] Allergy (Severe, Verified 06/27/24 10:21) Itching Penicillins [PENICILLINS] Allergy (Intermediate, Verified 06/27/24 10:21) itchy rash naproxen [NAPROXEN] Allergy (Unknown, Verified 06/27/24 10:21) STOMACH PAIN Medication List - Last Reconciled 06/27/24 by Naa Dinh RN acetaminophen ER mg PO atorvastatin 80 mg PO DAILY bisacodyl 10 mg PO BEDTIME chlorhexidine gluconate 0.12% PO docusate sodium 100 mg PO BEDTIME fluoxetine 20 mg PO DAILY gabapentin 100 mg PO DAILY metoprolol tartrate 25 mg PO BID omeprazole 20 mg PO DAILY warfarin 4 mg See Protocol PO DAILY Nursing Note INR: 2.6 in therapeutic range Medications and supplements reviewed- PT MISSED A DOSE LAST WEEK AND NEPHEW WANTED TO HAVE INR CHECKED THIS WEEK TO MAKE SURE SHE WAS SAFE No changes in health, diet, medications, or supplements, Denies any signs and symptoms of bleeding or bruising or clotting. Bleeding, bruising, clotting discussed Nutritional guidance given - CONT TO EAT A MIX OF FRUITS AND VEGETABLES Dose: 4MG X 2 DAYS/ 2MG X 5 DAYS F/U INR: 3 WEEKS 07/18/24 ]Patient verbalizes understanding of instructions given Anti-Coag Initial Assessment Social Hx Patient Tobacco Use Status: Never used Tobacco alcohol intake: never Alcohol intake frequency: does not drink Coding Level of Care Code Est Patient Level 1 Diagnoses Current use of anticoagulant therapy Z79.01 Results AMB INR Fingerstick AMB INR Fingerstick 2.6 Last Edit by Naa Dinh RN on 06/27/24 10:29 manual entry Assessment & Plan Assessment & Plan (1) Current use of anticoagulant therapy: Code(s): Z79.01 - group home (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
[2024-06-27 11:18] LABS: Prothrombin Time Whole Bld POC 31.7 sec (11.1-13.5); ~PT, ~INR - Anti Coag Clinic 2.6 (0.9-1.1)
== END 2024-06-27 10:36 | disposition home or self-care (01) ==
LOC: HO.ACS 10:12
PROVIDERS: PCP Internal Medicine Medical Oncology; Visit Provider Internal Medicine
DX: Z79.01 Long term (current) use of anticoagulants (principal)

== ENCOUNTER → 2024-06-27 10:12 | Outpatient (BNVA) | payer MEDICARE, MEDICAID, SELFPAY | PROVIDERS: PCP Internal Medicine Medical Oncology; Visit Provider Internal Medicine | DX: I69.30 Unspecified sequelae of cerebral infarction (principal); Z79.01 Long term (current) use of anticoagulants; Z51.81 Encounter for therapeutic drug level monitoring | CPT/HCPCS: 85610; 99211 ==

== ENCOUNTER 2024-07-18 10:12 | Outpatient (AMB) | payer MEDICARE, MEDICAID, SELFPAY ==
--- NOTE | 2024-07-18 10:40 | MHC.OFFVISCO ---
Intake Intake Visit Reasons: Anticoagulation Allergies acetaminophen [Percocet] Allergy (Severe, Verified 06/27/24 10:21) ITCHY RASH oxycodone [Percocet] Allergy (Severe, Verified 06/27/24 10:21) Itching Penicillins [PENICILLINS] Allergy (Intermediate, Verified 06/27/24 10:21) itchy rash naproxen [NAPROXEN] Allergy (Unknown, Verified 06/27/24 10:21) STOMACH PAIN Medication List - Last Reconciled 07/18/24 by Ana Maria Mcculloguh RN acetaminophen ER mg PO atorvastatin 80 mg PO DAILY bisacodyl 10 mg PO BEDTIME chlorhexidine gluconate 0.12% PO docusate sodium 100 mg PO BEDTIME fluoxetine 20 mg PO DAILY gabapentin 100 mg PO DAILY metoprolol tartrate 25 mg PO BID omeprazole 20 mg PO DAILY warfarin 4 mg See Protocol PO DAILY Nursing Note INR: 2.0- in therapeutic range of 2-3 Medications and supplements reviewed- no changes No changes in health, diet, medications, or supplements, Denies any signs and symptoms of bleeding or bruising or clotting. Bleeding, bruising, clotting discussed Nutritional guidance given - no greens for 2 days, eat reds to raise food list reviewed with brother sylvie and pt Dose: 4mg x 2, 2mg x 5 F/U INR: 2 weeks Patient verbalizes understanding of instructions given pt to acs in w/c with brother Anti-Coag Initial Assessment Social Hx Patient Tobacco Use Status: Never used Tobacco alcohol intake: never Alcohol intake frequency: does not drink Coding Level of Care Code Est Patient Level 1 Diagnoses Current use of anticoagulant therapy Z79.01 Assessment & Plan Assessment & Plan (1) Current use of anticoagulant therapy: Code(s): Z79.01 - correction (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
[2024-07-18 10:41] LABS: Prothrombin Time Whole Bld POC 24.5 sec (11.1-13.5)
--- OUTSIDE RECORDS SUMMARY | 2024-07-18 12:08 | XMS_ITS | Clinical Summary ---
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
--- OUTSIDE RECORDS SUMMARY | 2024-07-18 12:08 | XMS_ITS ---
Author Organization Jose E Hubbard III, MD Address [address] [place] [address] [address] [place] [address] Care Team Providers Care Porter Luggage Name Role Phone Jose E Hubbard Primary Care Provider [phone] Allergies Allergen (clinical drug ingredient) Drug/Non Drug [...] Risk Notes Problem DM - Diabetes mellitus (31761981) DM (diabetes mellitus) (E11.9) Active confirmed I [...] Provider Diagnosis Jose E Hubbard III, MD [address] [place] [address] [place] [address] 02/16/2024 Jose E Hubbard Essential hypertensi on [...] OV, Annual Exam Provider Name:Jose E Hubbard, 10/11/2024 10:00:00 AM, [address] [place] [address] [address], [place], [address], Provider Name:Jose E Hubbard, 07/17/2025 10:00:00 AM, [address] [place] [address] [address], [place], [address], Progress Notes * Malu GARCIADOB:1955 ([age] yo F)Acc No.[id number]:02/16/2024 Progress Notes Patient:?ATTILA Malu Provider:?Jose E Hubbard MD :1955???Age:68 Y???Sex:Female D ate:02/16/2024 [address] [address] [facility] [id number] Subjective: * Chief Complaints: * ???Adult onset [...] Medical History:? * Surgical History:?Negative c olonoscopy, [facility], Dr. York 03/2022 * Hospitalization/Major Diagno [...] Findings: Tobacco Non-User?Ex-cigarette smoker ???She lives in [place]. She was born in [place], [place]. She has been since 1997 and [...] 0.000 (Ref Range: 0.0-0.012 X10*3/uL) * Lab:[facility] * Collection Date 02/08/2024 07/07/2023 04/01/2023 [...] 02/16/2024) (Collection Date & Time - 02/16/2024)?ValueReference Range?DVY210 * Examination: ???General Examination: ?GENERAL APPEARANCE:?pleasant, well [...] every 4 hours for anxiety.?? * Procedure Codes:?33724 ASSAY , GLUCOSE, BLOOD QUANT * Preventive [...] lb per week.? * Follow Up:?As Scheduled ([place] son: OV, Annual Exam) * Images: * Sign off status: Completed true * Provider:?Jose E Hubbard MD Date:?06/2023 Generated for Printi ng/Faanjumg/eTransmitting on:?07/18/2024 12:08 PM EST History and Physical Notes * HPI (History of Present Illness) Category Sub-Category Detail Notes COVID-19 Screening Questions Have you had any new onset fever, chills, cough, congestion, sore throat, shortness of breath, muscle aches?: No Have you been exposed to the virus withi n the last 10 days?: No Have you travelled internationally in [facility] last 10 days?: No Have you been [...]
--- OUTSIDE RECORDS SUMMARY | 2024-07-18 12:08 | XMS_ITS | Clinical Summary ---
Author Organization [facility] Address [address] [place] [address] Care Team Providers Care Flooring Machine Operator Name Role Phone Unavailable Primary Care Provider Unavailabl e Social History Tobacco Use Types Packs/Day Years Used Date Smoking Tobacco: Never Assessed Comments Unknown Sex and Gender Information Value Date Recorded Sex Assigned at Not on file Legal Sex Female 2:34 PM EST Gender Identity Not on file Sexual Orientation Not on file Plan of Treatment Health Maintenance Due Date Last Done Comments Breast Cancer Screening 1955 DTaP,Tdap,and Td Vaccines (1 - Tdap) 10/27/1974 Pneumococcal Vaccine: 50+ Ye ars (1 of 1 - PCV) 10/27/2005 Zoster Vaccines (1 of 2) 10/27/2005 COVID-19 Vaccine ( - 2023-2 5 season) 2024 Influenza Vaccine [...] patient's age to complete this topic Meningococcal B Vacine Aged Out No lo nger eligible based on patient's age to complete this topic RSV Immunization Patients Un raymundo 20 months Aged Out No longer eligible b ased on patient's age to complete this topic Varicella Vaccines Aged Out No longer eligible based on patient's age to complete this topic Advance Directives Documents on File Type Date Recorded Patient Arc Trimmer Expl anation Health Care Decision (hx) 07/20/2018 AD ALMA ROSA DIRECTIVE
--- OUTSIDE RECORDS SUMMARY | 2024-07-18 12:09 | XMS_ITS ---
Author Organization Jose E Hubbard III, MD Address [address] [place] [address] [place] [address] Care Team Providers Care Electroencephalographic Technologist Name Role Phone Jose E Hubbard Primary Care Provider REASON FOR VISIT Questioning Patient Social History Sex Assigned At : Social History Observation Description Sex Assigned At Female Encounters Encounter Location Date Provider Diagnosis Jose E Hubbard III, MD [address] [place] [address] [place] [address] 03/17/2024 Jose E Hubbard Plan Of Treatment Next Appt Details Provider Name:Jose E Hubbard, 10/11/2024 10:00:00 AM, [address] [place] [address] [place], [address], Provider Name:Jose E Hubbard, 07/17/2025 10:00:00 AM, [address] [place] [address] [place], [address], Progress Notes * Malu GARCIADOB:1955 ([age] yo F)Acc No.[id number]:03/17/2024 Patient:?Malu GARCIA :1955???Age:68 Y???Sex:Female Address:[address] [place] [address] * true * Date:? Generated for Printi ng/Faanjumg/eTransmitting on:?07/18/2024 12:08 PM EST
--- OUTSIDE RECORDS SUMMARY | 2024-07-18 12:09 | XMS_ITS ---
Author Organization Jose E Hubbard III, MD Address [address] [place] [address] [address] [facility] [place] [address] Care Team Providers Care Search Consultant Name Role Phone Jose E Hubbard Primary Care Provider Allergies Allergen (clinical drug ingredient) Drug/Non Drug Allergy documented on EMR Reaction Allergy Type Onset Date Status acetaminophen / oxycodone Percocet Unknown Drug Allergy Active miconazole Monistat 3 burning Drug Allergy Activ e REASON FOR VISIT Annual Exam Medications Medication SIG (Take, Route, Frequency, Duration) Notes Start Date End Date Status Warfarin Sodium 4 MG as directed Orally Once a day Active Metoprolol Tartrate 25 MG 1 tablet with food Orally Twice a day Active Docusate Sodium Acti ve diazePAM 5 MG 1 tablet Orally ever y 4 hours for anxiety 01/12/2023 Active Gabapentin 100 MG 1 capsule Orally Onc e a day Active FLUoxetine HCl 20 MG 1 capsule Orally On ce a day Active Atorvastatin Calcium 80 MG 1 tablet Oral ly Once a day Active Omeprazole 20 MG 1 [...] Additional Findings: Tobacco Non-User Ex-cigaret te smoker Vital Signs Temperature 98.8 degrees Fahrenheit 07/14/19 25 Blood pressure systolic 126 mm Hg 07/14/19 25 Blood pressure diastolic 77 mm Hg 025 Heart Rate 71 /min 07/14/2024 Height 58 in 07/14/2024 Weight 188 lbs 07/14/2024 BMI 39.29 kg/m2 07/14/2024 Encounters Encounter Location Date Provider Diagnosis Jose E Hubbard III, MD [address] [place] [address] [address], [place] [address] 07/14/2024 Jose E Hubbard Essential hypertensi on I10 ; CVA (cerebral vascular accident) I63.9 ; Gastro-esophageal reflux disease without esophagitis K21.9 ; Anticoagulation adequate Z79.01 ; Former smoker Z87.891 ; Fibromyalgia M79.7 and Right hemiplegia G81.91 Assessments Encounter Date Diagnosis (ICD Code) Assessment Notes Treat ment Notes Treatment Clinical Notes 07/14/2024 Essential hypertension (ICD-10 - I10) Her blood pressure was 126/77 and no change in her regimen was necessary. 07/14/2024 CVA (cerebral vascular accident) (ICD-10 - I63.9) She is currently anticoagulated because of the stroke. She has a dense right hemiplegia, but no further neurological symptoms. She is awake and alert and responsive to questions. Her speech is fluent. 07/14/2024 Gastro-esophageal reflux disease without esophagitis (ICD-10 - K21.9) She will continue on omeprazole and liquid antacid as needed. 07/14/2024 Anticoagulation adequate (ICD-10 - Z79.01) She has had no bleeding and is compliant with her therapy. 07/14/2024 Former smoker (ICD-1 0 - Z87.891) He is unable to obtain cigarettes. She does not smoke since his stroke. She says she does not want to. 07/14/2024 Fibromyalgia (ICD-10 - M79.7) Fibromyalgia lately has been low-grade she lives with a without a great deal difficulty. No medical therapies necessary. 07/14/2024 Right hemiplegia (ICD-10 - G81.91) There has been no change in the weakness of the right arm and leg. She remains confined to a wheelchair. The weakness in the right arm is dense. Plan Of Treatment Medication Medication Name Sig Start Date Stop Date Notes Warfarin Sodium 4 MG as directed Orally Once a day Metoprolol Tartrate 25 MG 1 tablet with food Orally Twice a day Docusate Sodium diazePAM 5 MG 1 tablet Orally ever y 4 hours for anxiety 01/12/2023 Gabapentin 100 MG 1 capsule Orally Once a day FLUoxetine HCl 20 MG 1 capsule Orally Once a day Atorvastatin Calcium 80 MG 1 tablet Orally Once a day Omeprazole 20 MG 1 capsule 30 minutes before morning meal Orally Once a day Pending Test Test Name Order Date PROFILE, FASTING (COMPREHENSIVE METABOLI C) 07/14/2024 CBC WITH AUTO DIFF 07/14/2024 Lipid Panel 07/14/2024 Microalbumin, Random 07/14/2024 Hemoglobin A1c 07/14/2024 Next Appt Details Follow Up: 3 Months, Reason: OV Provider Name:Jose E Hubbard, 10/11/2024 10:00:00 AM, [address] [place] [address] [address], [place], [address], Provider Name:Jose E Hubbard, 07/17/2025 10:00:00 AM, [address] [place] [address] [address], [place], [address], Progress Notes * Malu GARCIADOB:1955 ([age] yo F)Acc No.[id number]:07/14/2024 Progress Notes Patient:?Malu GARCIA Provider:?Jose E Hubbard MD :1955???Age:68 Y???Sex:Female D ate:07/14/2024 Address:[address] [place], [place] [id number] Subjective: * Chief Complaints: * ???Annual Exam * HPI: ???Depression Screening:? She returns to the office today for her annual physical examination.? She is cared for at home by family members.? She was cheerful.? She was well- controlled.? Her skin enclosing were cleaned.? Her fingernails and here work.? He she has been treated with diet for her diabetes but her point of care glucose today was 155.? Her A1c was elevated.? She was begun on 500 mg of metformin today.? Followup blood work and A1c is were ordered.? She denies any chest pain or shortness of breath.? Her skin was intact without breakdown.?Her neurological deficits were unchanged. ?PHQ-9?Little interest or pleasure in doing things?Several days ?Feeling down, depressed, or hopeless?Not at all ?Trouble falling or staying asleep, or sleeping too much?Not at all ?Feeling tired or having little energy?Several days ?Poor appetite or overeating?Not at all ?Feeling bad about yourself or that you are a failure, or have let yourself or your family down?Not at all ?Trouble concentrating on things, such as reading the newspaper or watching television?Not at all ?Moving or speaking so slowly that other people could have noticed; or the opposite, being so fidgety or restless that you have been moving around a lot more than usual?Several days ?Thoughts that you would be better off or of hurting yourself in some way?Not at all ?Total Score?3 ?Interpretation?Minimal Depression ???COVID-19 Screening:?Questions?Have you had any new onset fever, chills, cough, congestion, sore throat, shortness of breath, muscle aches??No ???Fall Risk Screening:?Fall History?Have you had any falls with injury in the past year??No ?Have you had two or more falls in the past year??No ?Fall Risk Assessment:?SDOH Questions:?SDOH Questions?In the past year have you been worried about losing your housing??No ?In the past year have you or any family members you live with been unable to get any of the following when it was really needed? Check all that apply:?None * ROS:?General/Constitutional:?pain?Right shoulder and elbow, otherwise only normal aches and pains.?Chills?denies.?Fatigue?admits.?Fever?denies.?ENT:?Decreased hearing?mild.?Respiratory:?Cough?denies.?Cardiovascular:?Chest pain with exertion?denies.?Dyspnea on exertion?denies.?Shortness of breath?denies.?Gastrointestinal:?Constipation?occasional.?Decreased appetite?denies.?Diarrhea?denies.?Heartburn?occasional.?Nausea?denies.?Rectal bleeding?denies.?Vomiting?denies.?Hematology:?bruising?denies.?petechiae?denies.?Swollen glands?none have been noted.?Genitourinary:?Frequent urination?at night.?Musculoskeletal:?Muscle aches?denies.?Painful joints?denies.?Sciatica?denies.?Weakness?denies.?Skin:?Itching?denies.?Rash?denies.?Skin lesion(s)?denies.?Neurologic:?Difficulty speaking?denies.?Dizziness?denies.?Headache?denies.?Low back pain?denies.?Psychiatric:?Depressed mood?denies.? * Medical History:? * Surgical History:?Negative c olonoscopy, [facility], Dr. York 03/2022 * Hospitalization/Major Diagno stic [...] Findings: Tobacco Non-User?Ex-cigarette smoker ???She lives in [place]. She was born in [place], [place]. She has been since 1997 and [...] 3: burningno[Allergies Verified] Objective: * Vitals:?Ht: 58, Wt:188, BMI: 39.29, BP:126/77, HR:71, Temp:98.8, Wt-k.28. * Examination: ???General Examination: ?GENERAL APPEARANCE:?pleasant, well nourished, well developed, in no acute distress, calm and relaxed, obese Woman with right hemiparesis seen in a wheelchair.?HEAD:?atraumatic, normocephalic.?EYES:?eomi, perrla, anicteric, conjugate.?EARS:?normal.?NOSE:?septum intact.?ORAL CAVITY:?normal, unremarkable.?NECK/THYROID:?no jugular venous distention, no carotid bruit, thyroid normal.?LYMPH NODES:?no enlarged lymph nodes,spleen normal.?SKIN:?no suspicious lesions, anicteric, No areas of skin breakdown noted.?HEART:?no clicks, gallops, murmurs, or rubs, regular rhythm, S1, S2 normal, no s3, or vascular bruits.?LUNGS:?clear to auscultation .?BREASTS:??no masses palpable bilaterally.?ABDOMEN:?bowel sounds normal, no ascites, no organomegaly, no mass, centripital obesity.?RECTAL EXAM:?not examined.?MUSCULOSKELETAL:?extremities unremarkable, no clubbing, cyanosis or edema, Decreased range of motion of right shoulder, elbow and fingers.?PERIPHERAL PULSES:?normal.?NEUROLOGIC:?alert and oriented, cranial nerves 2-12 grossly intact, deep tendon reflexes 2+ symmetrical, motor strength normal left upper and lower extremities, sensory exam intact right hemiparesis.?PSYCH:?alert, oriented.? Assessment: * Assessment: 1.?CVA (cerebral vascular ac cident) - I63.9 (Primary)???Notes :She is currently anticoagulated because of the stroke. She has a dense right hemiplegia, but no further neurological symptoms. She is awake and alert and responsive to questions. Her speech is fluent.???2.?Essential hypertension - I10???Notes :Her blood pressure was 126/77 and no change in her regimen was necessary.???3.?Gastro-esophageal reflux disease without esophagitis - K21.9???Notes :She will continue on omeprazole and liquid antacid as needed.???4.?Anticoagulation adequate - Z79.01???Notes :She has had no bleeding and is compliant with her therapy.???5.?Former smoker - Z87.891???Notes :He is unable to obtain cigarettes. She does not smoke since his stroke. She says she does not want to.???6.?Fibromyalgia - M79.7???Notes :Fibromyalgia lately has been low-grade she lives with a without a great deal difficulty. No medical therapies necessary.???7.?Right hemiplegia - G81.91???Notes :There has been no change in the weakness of the right arm and leg. She remains confined to a wheelchair. The weakness in the right arm is dense.??? Plan: * Treatment: 2.?Others? Continue Atorvastatin Calcium Tablet, 80 MG, 1 tablet, Orally, Once a day;?Continue FLUoxetine HCl Capsule, 20 MG, 1 capsule, Orally, Once a day;?Continue Docusate Sodium;?Continue diazePAM Tablet, 5 MG, 1 tablet, Orally, every 4 hours for anxiety.?? * Procedure Codes:? * Preventive Medicine:? ??Counseling:?Care goal follow-up plan:?Counseling [...] dangers of tobacco use and urged to quit.?07/14/2024 ??DM Care Plan:?Patient Lifestyle Goals?Patient wants to be able to manage diabetes without too much effort.?Treatment Goals?Blood Sugars less than < 115, HbA1C < 7.0.?Barriers?no barriers.?Self-Managment Goals?Work on weight loss, with a goal of losing 1 lb per week.? * Follow Up:?3 Months (Reason: OV) * Images: * Sign off status: Completed true * Provider:?Jose E Hubbard MD Date:?06/18 Generated for JeriGainsight vernon/Kiko/eTransmitting on:?07/18/2024 12:08 PM EST History and Physical Notes * HPI (History of Present Illness) Category Sub-Category Detail Notes Depression Screening PHQ-9 Little inte rest or pleasure in doing things: Several days Feeling down, depressed, or hopeless: No t at all Trouble falling or staying asleep, or sl eeping too much: Not at all Feeling tired or having little energy: S everal days Poor appetite or overeating: Not at all Feeling bad about yourself o r that you are a failure, or have let yourself or your family down: Not at all Trouble concentrating on thi ngs, such as reading the newspaper or watching television: Not at all Moving or speaking so slowly that other people could have noticed; or the opposite, being so fidgety or restless that you have been moving around a lot more than usual: Several days Thoughts that you would be b gasper off or of hurting yourself in some way: Not at all Total Score: 3 Interpretation: Minimal Depression Fall Risk Screening Fall History Have you had any falls with injury in the past year?: No Have you had two or more falls in the year?: No Fall Risk Assessment:: COVID-19 Screening Questions Have you had any new onset fever, chills, cough, congestion, sore throat, shortness of breath, muscle aches?: No SDOH Questions SDOH Questions In the past year have you been worried about losing your housing?: No In the past year have you or any family members you live with been unable to get any of the following when it was really needed? Check all that apply:: None Examination Category Sub-Category Detail Notes General Examination GENERAL APPEARANCE: pleasant , well nourished, well developed, in no acute distress, calm and relaxed, obese Woman with right hemiparesis seen in a wheelchair HEAD: atraumatic, normocep halic EYES: eomi, perrla, anicte haydee, conjugate EARS: normal NOSE: septum intact NECK/THYROID: no jugular venous di stention, no carotid bruit, thyroid normal HEART: no clicks, gallops, murmurs, or rubs, regular rhythm, S1, S2 normal, no s3, or vascular bruits LUNGS: clear to auscultatio n ABDOMEN: bowel sounds normal, no ascites, no organomegaly, no mass, centripital obesity NEUROLOGIC: alert and oriented, cranial nerves 2-12 grossly intact, deep tendon reflexes 2+ symmetrical, motor strength normal left upper and lower extremities, sensory exam intact right hemiparesis SKIN: no suspicious lesion s, anicteric, No areas of skin breakdown noted PERIPHERAL PULSES: normal BREASTS: no masses palpable b ilaterally MUSCULOSKELETAL: extremities unremark able, no clubbing, cyanosis or edema, Decreased range of motion of right shoulder, elbow and fingers LYMPH NODES: no enlarged lymph no tj,spleen normal RECTAL EXAM: not examined PSYCH: alert, oriented ORAL CAVITY: normal, unremarkable
== END 2024-07-18 10:48 | disposition home or self-care (01) ==
LOC: HO.ACS 10:12
PROVIDERS: PCP Internal Medicine Medical Oncology; Visit Provider Internal Medicine
DX: Z79.01 Long term (current) use of anticoagulants (principal)

== ENCOUNTER → 2024-07-18 10:12 | Outpatient (BNVA) | payer MEDICARE, MEDICAID, SELFPAY | PROVIDERS: PCP Internal Medicine Medical Oncology; Visit Provider Internal Medicine | DX: I69.30 Unspecified sequelae of cerebral infarction (principal); Z79.01 Long term (current) use of anticoagulants; Z51.81 Encounter for therapeutic drug level monitoring | CPT/HCPCS: 85610; 99211 ==

== ENCOUNTER 2024-08-01 09:54 | Outpatient (AMB) | payer MEDICARE, MEDICAID, SELFPAY ==
--- NOTE | 2024-08-01 10:12 | MHC.OFFVISCO ---
Intake Intake Visit Reasons: Anticoagulation Allergies acetaminophen [Percocet] Allergy (Severe, Verified 08/01/24 09:56) ITCHY RASH oxycodone [Percocet] Allergy (Severe, Verified 08/01/24 09:56) Itching Penicillins [PENICILLINS] Allergy (Intermediate, Verified 08/01/24 09:56) itchy rash naproxen [NAPROXEN] Allergy (Unknown, Verified 08/01/24 09:56) STOMACH PAIN Medication List - Last Reconciled 08/01/24 by Naa Dinh RN acetaminophen ER mg PO atorvastatin 80 mg PO DAILY bisacodyl 10 mg PO BEDTIME chlorhexidine gluconate 0.12% PO docusate sodium 100 mg PO BEDTIME fluoxetine 20 mg PO DAILY gabapentin 100 mg PO DAILY metformin 500 mg PO DAILY metoprolol tartrate 25 mg PO BID omeprazole 20 mg PO DAILY warfarin 4 mg See Protocol PO DAILY Nursing Note comes to clinic via wheelchair with MANAGER PHYSICAL/nephew INR 1.7 out of therapeutic range Medications and supplements reviewed- started metformin 07/29/24 Patient status: states she feels better on it, just a little tiered todau Medications or supplements: metforming 500mg q am Diet: good - following lower sugar / carb diet Denies any signs and symptoms of bleeding or clotting or unusual bruising Bleeding, bruising, clotting discussed Nutritional guidance given: avoid greens x 2 days - eat orange or red vegetables onion , garlic to helpr aise the INR Dose: increase weekly dose 4mg x 3 days/ 2mg x 4 days F/U INR Date : 6 days 08/07/24 ?? Patient verbalizing understanding of instructions given with read back. Anti-Coag Initial Assessment Social Hx Patient Tobacco Use Status: Never used Tobacco alcohol intake: never Alcohol intake frequency: does not drink Coding Level of Care Code Est Patient Level 1 Diagnoses Current use of anticoagulant therapy Z79.01 Results AMB INR Fingerstick AMB INR Fingerstick 1.7 Last Edit by Naa iDnh RN on 08/01/24 10:06 MANUAL ENTRY Assessment & Plan Assessment & Plan (1) Current use of anticoagulant therapy: Code(s): Z79.01 - jail (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
[2024-08-01 10:50] LABS: Prothrombin Time Whole Bld POC 20.4 sec (11.1-13.5); ~PT, ~INR - Anti Coag Clinic 1.7 (0.9-1.1)
--- OUTSIDE RECORDS SUMMARY | 2024-08-01 11:10 | XMS_ITS | Clinical Summary ---
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
--- OUTSIDE RECORDS SUMMARY | 2024-08-01 11:10 | XMS_ITS ---
Author Organization Jose E Hubbard III, MD Address [address] [place] [address] [place] [address] Care Team Providers Care Airport Operations Supervisor Name Role Phone Jose E Hubbard Primary Care Provider REASON FOR VISIT Rx request Social History Sex Assigned At : Social History Observation Description Sex Assigned At Female Encounters Encounter Location Date Provider Diagnosis Jose E Hubbard III, MD [address] [place] [address] [place] [address] 07/25/2024 Jose E Hubbard Plan Of Treatment Next Appt Details Provider Name:Jose E Hubbard, 10/11/2024 10:00:00 AM, [address] [place] [address] [place], [address], Provider Name:Jose E Hubbard, 07/17/2025 10:00:00 AM, [address] [place] [address] [place], [address], Progress Notes * Malu GARCIADOB:1955 ([age] yo F)Acc No.[id number]:07/25/2024 Patient:?Malu GARCIA :1955???Age:68 Y???Sex:Female Address:[address] [facility] [place] [address] * true * Date:? Generated for Printi ng/Faxing/eTransmitting on:?08/01/2024 11:10 AM EDT
--- OUTSIDE RECORDS SUMMARY | 2024-08-01 11:11 | XMS_ITS ---
Author Organization Jose E Hubbard III, MD Address [address] [place] [address] [address] [facility] [place] [address] Care Team Providers Care Senior Web Designer Name Role Phone Jose E Hubbard Primary Care Provider [phone] Allergies Allergen (clinical drug ingredient) Drug/Non Drug [...] Provider Diagnosis Jose E Hubbard III, MD [address] [place] [address] [address], [place] [address] 07/14/2024 Jose E Hubbard Essential hypertensi on [...] Provider Name:Jose E Hubbard, 10/11/2024 10:00:00 AM, [address] [place] [address] [address], [place], [address], Provider Name:Jose E Hubbard, 07/17/2025 10:00:00 AM, [address] [place] [address] [address], [place], [address], Progress Notes * Malu GARCIADOB:1955 ([age] yo F)Acc No.[id number]:07/14/2024 Progress Notes Patient:?Malu GARCIA Provider:?Jose E Hubbard MD :1955???Age:68 Y???Sex:Female D ate:07/14/2024 Address:[address] [place], [place] [id number] Subjective: * Chief Complaints: * ???Annual Exam [...] Medical History:? * Surgical History:?Negative c olonoscopy, [facility], Dr. York 03/2022 * Hospitalization/Major [...] Findings: Tobacco Non-User?Ex-cigarette smoker ???She lives in [place]. She was born in [place], [place]. She has been since 1997 and [...] Provider:?Jose E Hubbard MD Date:?06/18 Generated for JeriChictini vernon/Kiko/eTransmitting on:?08/01/2024 11:10 AM EDT History and Physical Notes * HPI (History [...] had two or more falls in the st year?: No Fall Risk Assessment:: COVID-19 Screening [...]
--- OUTSIDE RECORDS SUMMARY | 2024-08-01 11:11 | XMS_ITS ---
Author Organization Jose E Hubbard III, MD Address [address] [place] [address] [place] [address] Care Team Providers Care Crewman Main Battle Tank Name Role Phone Jose E Hubbard Primary Care Provider Medications Medication SIG (Take, Route, Fr equency, Duration) Notes Start Date End Date Status metFORMIN HCl 500 MG 1 tablet Orally Onc e a day for 30 days 07/25/2024 Active Social History Sex Assigned At : Social History Observation Description Sex Assigned At Female Encounters Encounter Location Date Provider Diagnosis Jose E Hubbard III, MD [address] [place] [address] [place] [address] 07/25/2024 Jose E Hubbard Plan Of Treatment Medication Medication Name Sig Start Date Stop Date Notes metFORMIN HCl 500 MG 1 tablet Orally Onc e a day for 30 days 07/25/2024 Next Appt Details Provider Name:Jose E uHbbard, 10/11/2024 10:00:00 AM, [address] [place] [address] [address] [place], [place], [address], Provider Name:Jose E Hubbard, 07/17/2025 10:00:00 AM, [address] [place] [address] [place], [address], Progress Notes * Malu GARCIADOB:1955 ([age] yo F)Acc No.[id number]:07/25/2024 Patient:?ATTILA Malu :1955???Age:68 Y???Sex:Female Address: [address] [facility], [place] [address] * Refills? Start metFORMIN HCl Tablet, 500 MG, Orally, 30 Tablet, 1 tablet, Once a day, 30 days, Refills=11 * true * Date:? Generated for Michael junior/Kiko/Eugenieitting on:?08/01/2024 11:10 AM EDT
== END 2024-08-01 10:16 | disposition home or self-care (01) ==
LOC: HO.ACS 09:54
PROVIDERS: PCP Internal Medicine Medical Oncology; Visit Provider Internal Medicine
DX: Z79.01 Long term (current) use of anticoagulants (principal)

== ENCOUNTER → 2024-08-01 09:54 | Outpatient (BNVA) | payer MEDICARE, MEDICAID, SELFPAY | PROVIDERS: PCP Internal Medicine Medical Oncology; Visit Provider Internal Medicine | DX: I69.30 Unspecified sequelae of cerebral infarction (principal); Z79.01 Long term (current) use of anticoagulants; Z51.81 Encounter for therapeutic drug level monitoring | CPT/HCPCS: 85610; 99211 ==

== ENCOUNTER 2024-08-07 10:18 | Outpatient (AMB) | payer MEDICARE, MEDICAID, SELFPAY ==
[2024-08-07 10:25] LABS: Prothrombin Time Whole Bld POC 29.5 sec (11.1-13.5); ~PT, ~INR - Anti Coag Clinic 2.5 (0.9-1.1)
--- NOTE | 2024-08-07 10:31 | MHC.OFFVISCO ---
Intake Intake Visit Reasons: Anticoagulation Allergies acetaminophen [Percocet] Allergy (Severe, Verified 08/07/24 10:19) ITCHY RASH oxycodone [Percocet] Allergy (Severe, Verified 08/07/24 10:19) Itching Penicillins [PENICILLINS] Allergy (Intermediate, Verified 08/07/24 10:19) itchy rash naproxen [NAPROXEN] Allergy (Unknown, Verified 08/07/24 10:19) STOMACH PAIN Medication List - Last Reconciled 08/07/24 by Cristine Giang, RN acetaminophen ER mg PO atorvastatin 80 mg PO DAILY bisacodyl 10 mg PO BEDTIME chlorhexidine gluconate 0.12% PO docusate sodium 100 mg PO BEDTIME fluoxetine 20 mg PO DAILY gabapentin 100 mg PO DAILY metformin 500 mg PO DAILY metoprolol tartrate 25 mg PO BID omeprazole 20 mg PO DAILY warfarin 4 mg See Protocol PO DAILY Nursing Note INR: 2.5 in therapeutic range of 2-3 Medications and supplements reviewed No changes in health, diet, medications, or supplements, Denies any signs and symptoms of bleeding or bruising or clotting. Bleeding, bruising, clotting discussed Nutritional guidance given to balance foods that raise and foods that lower the INR. Dose: 2mg X 4 days and 4mg X 3 days (Mon, Wed & Fri) F/U INR: 2 weeks Patient verbalizes understanding of instructions given Anti-Coag Initial Assessment Social Hx Patient Tobacco Use Status: Never used Tobacco alcohol intake: never Alcohol intake frequency: does not drink Coding Level of Care Code Est Patient Level 1 Diagnoses Current use of anticoagulant therapy Z79.01 Assessment & Plan Assessment & Plan (1) Current use of anticoagulant therapy: Code(s): Z79.01 - alf (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
== END 2024-08-07 10:35 | disposition home or self-care (01) ==
LOC: HO.ACS 10:18
PROVIDERS: PCP Internal Medicine Medical Oncology; Visit Provider Internal Medicine Medical Oncology
DX: Z79.01 Long term (current) use of anticoagulants (principal)

== ENCOUNTER → 2024-08-07 10:18 | Outpatient (BNVA) | payer MEDICARE, MEDICAID, SELFPAY | PROVIDERS: PCP Internal Medicine Medical Oncology; Visit Provider Internal Medicine Medical Oncology | DX: I69.30 Unspecified sequelae of cerebral infarction (principal); Z51.81 Encounter for therapeutic drug level monitoring; Z79.01 Long term (current) use of anticoagulants | CPT/HCPCS: 85610; 99211 ==

== ENCOUNTER 2024-08-21 10:21 | Outpatient (AMB) | payer MEDICARE, MEDICAID, SELFPAY ==
--- NOTE | 2024-08-21 10:31 | MHC.OFFVISCO ---
Intake Intake Visit Reasons: Anticoagulation Allergies acetaminophen [Percocet] Allergy (Severe, Verified 08/21/24 10:22) ITCHY RASH oxycodone [Percocet] Allergy (Severe, Verified 08/21/24 10:22) Itching Penicillins [PENICILLINS] Allergy (Intermediate, Verified 08/21/24 10:22) itchy rash naproxen [NAPROXEN] Allergy (Unknown, Verified 08/21/24 10:22) STOMACH PAIN Medication List - Last Reconciled 08/21/24 by Cristine Giang RN acetaminophen ER mg PO atorvastatin 80 mg PO DAILY bisacodyl 10 mg PO BEDTIME chlorhexidine gluconate 0.12% PO docusate sodium 100 mg PO BEDTIME fluoxetine 20 mg PO DAILY gabapentin 100 mg PO DAILY metformin 500 mg PO DAILY metoprolol tartrate 25 mg PO BID omeprazole 20 mg PO DAILY warfarin 4 mg See Protocol PO DAILY Nursing Note INR: 2.8 in therapeutic range of 2-3 Medications and supplements reviewed No changes in health, diet, medications, or supplements, Denies any signs and symptoms of bleeding or bruising or clotting. Bleeding, bruising, clotting discussed Nutritional guidance given Dose: 2mg X 4 days and 4mg X 3 days (M/W/F) F/U INR: 2 weeks Patient verbalizes understanding of instructions given Anti-Coag Initial Assessment Social Hx Patient Tobacco Use Status: Never used Tobacco alcohol intake: never Alcohol intake frequency: does not drink Coding Level of Care Code Est Patient Level 1 Diagnoses Current use of anticoagulant therapy Z79.01 Results AMB INR Fingerstick AMB INR Fingerstick 2.8 Last Edit by Cristine Giang RN on 08/21/24 10:28 interface delay Assessment & Plan Assessment & Plan (1) Current use of anticoagulant therapy: Code(s): 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
[2024-08-21 10:35] LABS: Prothrombin Time Whole Bld POC 33.4 sec (11.1-13.5); ~PT, ~INR - Anti Coag Clinic 2.8 (0.9-1.1)
--- OUTSIDE RECORDS SUMMARY | 2024-08-21 12:05 | XMS_ITS | Clinical Summary ---
Author Organization [employer] Address [address] [facility] [address] [place] [address] Care Team Providers Care Line Runner Name Role Phone Unavailable Primary Care Provider [...]
--- OUTSIDE RECORDS SUMMARY | 2024-08-21 12:05 | XMS_ITS ---
Author Organization Jose E Hubbard III, MD Address [address] [place] [address] [place] [address] Care Team Providers Care Office Machine Inspector Name Role Phone Jose E Hubbard Primary [...] Provider Diagnosis Jose E Hubbard III, MD [address] [place] [address] [place] [address] 07/25/2024 Jose E Hubbard Plan Of Treatment Medication Medication Name Sig Start Date Stop Date Notes metFORMIN HCl 500 MG 1 tablet Orally Onc e a day for 30 days 07/25/2024 Next Appt Details Provider Name:Jose E Hubbard, 10/11/2024 10:00:00 AM, [address] [place] [address] [address], [place], [address], Provider Name:Jose E Hubbard, 07/17/2025 10:00:00 AM, [address] [place] [address] [place], [address], Progress Notes * Malu GARCIADOB:1955 ([age] yo F)Acc No.[id number]:07/25/2024 Patient:?ATTILA Malu :1955???Age:68 Y???Sex:Female Address: [address] [facility], [place] [address] * Refills? Start metFORMIN HCl Tablet, 500 MG, Orally, 30 Tablet, 1 tablet, Once a day, 30 days, Refills=11 * true * Date:? Generated for Michael junior/Kiko/Eugenieitting on:?08/21/2024 12:05 PM EDT
--- OUTSIDE RECORDS SUMMARY | 2024-08-21 12:05 | XMS_ITS | Clinical Summary ---
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
--- OUTSIDE RECORDS SUMMARY | 2024-08-21 12:06 | XMS_ITS ---
Author Organization Jose E Hubbard III, MD Address [address] [place] [address] [address] [place] [address] Care Team Providers Care Visitor Use Assistant Name Role Phone Jose E Hubbard Primary [...] Provider Diagnosis Jose E Hubbard III, MD [address] [place] [address] [address], [place] [address] 07/14/2024 Jose E Hubbard Essential hypertensi on [...] Provider Name:Jose E Hubbard, 10/11/2024 10:00:00 AM, [address] [place] [address] [address], [place], [address], Provider Name:Jose E Hubbard, 07/17/2025 10:00:00 AM, [address] [place] [address] [address], [place], [address], Progress Notes * Malu GARCIADOB:1955 ([age] yo F)Acc No.[id number]:07/14/2024 Progress Notes Patient:?Malu GARCIA Provider:?Jose E Hubbard MD :1955???Age:68 Y???Sex:Female D ate:07/14/2024 Address:[address] [place], [place] [phone] Subjective: * Chief Complaints: * ???Annual Exam [...] Medical History:? * Surgical History:?Negative c olonoscopy, [facility], Dr. York 03/2022 * Hospitalization/Major Diagno [...] Findings: Tobacco Non-User?Ex-cigarette smoker ???She lives in [place]. She was born in [place]. She has been since 1997 and [...] Provider:?Jose E Hubbard MD Date:?06/18 Generated for JeriDavia vernon/Kiko/eTransmitting on:?08/21/2024 12:05 PM EDT History and Physical Notes * HPI [...]
--- OUTSIDE RECORDS SUMMARY | 2024-08-21 12:06 | XMS_ITS ---
Author Organization Jose E Hubbard III, MD Address [address] [place] [address] [place] [address] Care Team Providers Care Pot Puller Name Role Phone Jose E Hubbard Primary Care Provider [phone] REASON FOR VISIT Rx request Social History Sex Assigned At : Social History Observation Description Sex Assigned At Female Encounters Encounter Location Date Provider Diagnosis Jose E Hubbard III, MD [address] [place] [address] [place] [address] 07/25/2024 Jose E Hubbard Plan Of Treatment Next Appt Details Provider Name:Jose E Hubbard, 10/11/2024 10:00:00 AM, [address] [place] [address] [place], [address], Provider Name:Jose E Hubbard, 07/17/2025 10:00:00 AM, [address] [place] [address] [place], [address], Progress Notes * Malu GARCIADOB:1955 ([age] yo F)Acc No.[id number]:07/25/2024 Patient:?Malu GARCIA :1955???Age:68 Y???Sex:Female Address:[address] [place] [facility] [place] [address] * true * Date:? Generated for Printi ng/Faxing/eTransmitting on:?08/21/2024 12:05 PM EDT
== END 2024-08-21 10:32 | disposition home or self-care (01) ==
LOC: HO.ACS 10:21
PROVIDERS: PCP Internal Medicine Medical Oncology; Visit Provider Internal Medicine Medical Oncology
DX: Z79.01 Long term (current) use of anticoagulants (principal)

== ENCOUNTER → 2024-08-21 10:21 | Outpatient (BNVA) | payer MEDICARE, MEDICAID, SELFPAY | PROVIDERS: PCP Internal Medicine Medical Oncology; Visit Provider Internal Medicine Medical Oncology | DX: Z86.73 Personal history of transient ischemic attack (TIA), and cerebral infarction without residual deficits (principal); Z51.81 Encounter for therapeutic drug level monitoring; Z79.01 Long term (current) use of anticoagulants | CPT/HCPCS: 85610; 99211 ==

== ENCOUNTER 2024-09-06 10:03 | Outpatient (AMB) | payer MEDICARE, MEDICAID, SELFPAY ==
[2024-09-06 10:16] LABS: Prothrombin Time Whole Bld POC 53.6 sec (11.1-13.5); ~PT, ~INR - Anti Coag Clinic 4.5 (0.9-1.1)
--- NOTE | 2024-09-06 10:17 | MHC.OFFVISCO ---
Intake Intake Visit Reasons: Anticoagulation Allergies acetaminophen [Percocet] Allergy (Severe, Verified 09/06/24 10:10) ITCHY RASH oxycodone [Percocet] Allergy (Severe, Verified 09/06/24 10:10) Itching Penicillins [PENICILLINS] Allergy (Intermediate, Verified 09/06/24 10:10) itchy rash naproxen [NAPROXEN] Allergy (Unknown, Verified 09/06/24 10:10) STOMACH PAIN Medication List - Last Reconciled 09/06/24 by Ana Maria Mccullough RN acetaminophen ER mg PO atorvastatin 80 mg PO DAILY bisacodyl 10 mg PO BEDTIME chlorhexidine gluconate 0.12% PO docusate sodium 100 mg PO BEDTIME fluoxetine 20 mg PO DAILY gabapentin 100 mg PO DAILY metformin 500 mg PO DAILY metoprolol tartrate 25 mg PO BID omeprazole 20 mg PO DAILY warfarin 4 mg See Protocol PO DAILY Nursing Note INR 4.5-? out of therapeutic range of 2-3 Medications and supplements reviewed Patient status: pt to acs in w/c with dinorah mercer diarrhea x 3 days, better now Medications or supplements: no changes - denies tylenol usage Diet: appetite good Denies any signs and symptoms of bleeding or clotting or unusual bruising Bleeding, bruising, clotting discussed - aware risk of bleeding or bruising Nutritional guidance given: food list reviewed, eat greens for 2 days, no reds for 2-3 days Dose: hold warfarin today then cont reg 4mg x 3, 2mg x 4 F/U INR Date :1 week? Patient verbalizing understanding of instructions given. Anti-Coag Initial Assessment Social Hx Patient Tobacco Use Status: Never used Tobacco alcohol intake: never Alcohol intake frequency: does not drink Coding Level of Care Code Est Patient Level 1 Diagnoses Current use of anticoagulant therapy Z79.01 Assessment & Plan Assessment & Plan (1) Current use of anticoagulant therapy: Code(s): Z79.01 - [facility] (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
--- OUTSIDE RECORDS SUMMARY | 2024-09-06 11:32 | XMS_ITS ---
Author Organization Jose E Hubbard III, MD Address [address] [place] [address] [place] [address] Care Team Providers Care Manager Hydraulic Name Role Phone Jose E Hubbard Primary Care Provider [phone] Medications Medication SIG (Take, Route, Fr equency, Duration) Notes Start Date End Date Status metFORMIN HCl 500 MG 1 tablet Orally Onc e a day for 30 days 07/25/2024 Active Social History Sex Assigned At : Social History Observation Description Sex Assigned At Female Encounters Encounter Location Date Provider Diagnosis Jose E Hubbard III, MD [address] [place] [address] [place] [address] 07/25/2024 Jose E Hubbard Plan Of Treatment Medication Medication Name Sig Start Date Stop Date Notes metFORMIN HCl 500 MG 1 tablet Orally Onc e a day for 30 days 07/25/2024 Next Appt Details Provider Name:Jose E Hubbard, 10/11/2024 10:00:00 AM, [address] [place] [address] [address], [place], [address], Provider Name:Jose E Hubbard, 07/17/2025 10:00:00 AM, [address] [place] [address] [place], [address], Progress Notes * Malu GARCIADOB:1955 ([age] yo F)Acc No.[id number]:07/25/2024 Patient:?ATTILA Malu :1955???Age:68 Y???Sex:Female Address: [address] [facility], [place] [address] * Refills? Start metFORMIN HCl Tablet, 500 MG, Orally, 30 Tablet, 1 tablet, Once a day, 30 days, Refills=11 * true * Date:? Generated for Michael junior/Kiko/Vonsmitting on:?09/06/2024 11:32 AM EDT
--- OUTSIDE RECORDS SUMMARY | 2024-09-06 11:32 | XMS_ITS | Clinical Summary ---
Author Organization [email or web address] Address [address] [facility] [address] [place] [address] Care Team Providers Care Paper Baling Machine Operator Name Role Phone Unavailable Primary [...]
--- OUTSIDE RECORDS SUMMARY | 2024-09-06 11:32 | XMS_ITS ---
Author Organization Jose E Hubbard III, MD Address [address] [place] [address] [place] [address] Care Team Providers Care News Cameraman Name Role Phone Jose E Hubbard Primary Care Provider REASON FOR VISIT Rx request Social History Sex Assigned At : Social History Observation Description Sex Assigned At Female Encounters Encounter Location Date Provider Diagnosis Jose E Hubbard III, MD [address] [place] [address] [place] [address] 07/25/2024 Jose E Hubbard Plan Of Treatment Next Appt Details Provider Name:Jsoe E Hubbard, 10/11/2024 10:00:00 AM, [address] [place] [address] [place], [address], Provider Name:Jose E Hubbard, 07/17/2025 10:00:00 AM, [address] [place] [address] [place], [address], Progress Notes * Malu GARCIADOB:1955 ([age] yo F)Acc No.[id number]:07/25/2024 Patient:?Malu GARCIA :1955???Age:68 Y???Sex:Female Address:[address] [facility] [place] [address] * true * Date:? Generated for Printi ng/Faxing/eTransmitting on:?09/06/2024 11:31 AM EDT
--- OUTSIDE RECORDS SUMMARY | 2024-09-06 11:32 | XMS_ITS | Clinical Summary ---
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
--- OUTSIDE RECORDS SUMMARY | 2024-09-06 11:32 | XMS_ITS | Patient Health Record ---
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1-13.5 sec INR WHOLE BLOOD POC Reviewed date:10/15/2023 08:46:13 PM Interpretation: Performing Lab:[facility], [address] [place] [phone] Notes/Report: PT, INR - [facility] 2.9 0.9-1.1 METER #: [id number] INTERNATIONAL NORMALIZED RATIO (INR) REFERENCE RANGES Reference [...] OC Reviewed date:10/15/2023 08:46:13 PM Interpretation: Performing Lab:[facility], [address] [place] [phone] Notes/Report: Prothrombin Time Whole Bld POC 34.2 11.1-13.5 sec INR WHOLE BLOOD POC Reviewed date:11/06/2023 05:26:31 AM Interpretation: Performing Lab:[facility], [address] [place] [phone] Notes/Report: PT, INR - [facility] 2.5 0.9-1.1 METER #: [id number] INTERNATIONAL NORMALIZED RATIO (INR) REFERENCE RANGES Reference [...] OC Reviewed date:11/06/2023 05:26:31 AM Interpretation: Performing Lab:[address] [address] Notes/Report: Prothrombin Time Whole Bld POC 30.1 11.1-13.5 sec INR WHOLE BLOOD POC Reviewed date:12/07/2023 06:47:16 AM Interpretation: Performing Lab:[facility], [address] [place] [phone] Notes/Report: PT, INR - [facility] 3.6 0.9-1.1 METER #: [id number] INTERNATIONAL NORMALIZED RATIO (INR) REFERENCE RANGES Reference [...] OC Reviewed date:12/07/2023 06:47:16 AM Interpretation: Performing Lab:[facility], [address] [place] [phone] Notes/Report: Prothrombin Time Whole Bld POC 43.1 11.1-13.5 sec INR WHOLE BLOOD POC Reviewed date:12/17/2023 08:58:55 PM Interpretation: Performing Lab:[facility], [address] [place] [phone] Notes/Report: PT, INR - [facility] 3.4 0.9-1.1 METER #: [id number] INTERNATIONAL NORMALIZED RATIO (INR) REFERENCE RANGES Reference [...] OC Reviewed date:12/17/2023 08:58:55 PM Interpretation: Performing Lab:[facility], [address] [place] [phone] Notes/Report: Prothrombin Time Whole Bld POC 40.6 11.1-13.5 sec INR WHOLE BLOOD POC Reviewed date:01/02/2024 06:34:15 AM Interpretation: Performing Lab:[facility], [address] [place] [phone] Notes/Report: PT, INR - [facility] 3.6 0.9-1.1 METER #: [id number] INTERNATIONAL NORMALIZED RATIO (INR) REFERENCE RANGES Reference [...] OC Reviewed date:01/02/2024 06:34:15 AM Interpretation: Performing Lab:[facility], [address] [place] [phone] Notes/Report: Prothrombin Time Whole Bld POC 42.9 11.1-13.5 sec INR WHOLE BLOOD POC Reviewed date:01/12/2024 11:07:47 AM Interpretation: Performing Lab:[facility], [address] [place] [phone] Notes/Report: PT, INR - [facility] 3.1 0.9-1.1 METER #: [id number] INTERNATIONAL NORMALIZED RATIO (INR) REFERENCE RANGES Reference [...] OC Reviewed date:01/12/2024 11:07:47 AM Interpretation: Performing Lab:[facility], [address] [place] [phone] Notes/Report: Prothrombin Time Whole Bld POC 37.0 11.1-13.5 sec INR WHOLE BLOOD POC Reviewed date:01/25/2024 04:12:11 PM Interpretation: Performing Lab:[facility], [address] [place] [phone] Notes/Report: PT, INR - [facility] Clinic 2.2 0.9-1.1 METER #: [id number] INTERNATIONAL NORMALIZED RATIO (INR) REFERENCE RANGES Reference [...] OC Reviewed date:01/25/2024 04:12:11 PM Interpretation: Performing Lab:[facility], [address] [place] [phone] Notes/Report: Prothrombin Time Whole Bld POC 26.6 11.1-13.5 sec Complete Blood Count Auto Di ff Reviewed date:02/09/2024 06:31:48 AM Interpretation: Performing Lab:[facility], [address] [place] [phone] Notes/Report: White Blood Count 9.2 4.8-10.8 X10*3/uL [...] NRBC Abs Auto 0.000 0.0-0.012 X10*3/uL Comprehensive [place]. Panel Fa st Reviewed date:02/09/2024 06:31:49 AM Interpretation: Performing Lab:[facility], [address] [place] [phone] Notes/Report: Sodium 143 135-145 mmol/L Potassium 4.3 3.3-5.1 mmol/L Chloride 112 96-108 mmol/L Carbon Dioxide 24 22-29 mmol/L Anion Gap 11 12-20 Blood Urea Nitrogen 29 9-16 mg/dL Creatinine 0.78 0.5-1.4 mg/dL Estimated Glomerular Filt Rate > 60 NOTE: For -[place] individuals, multiply the result by 1.210. Chronic [...] Panel Reviewed date:02/09/2024 06:31:49 AM Interpretation: Performing Lab:[facility], [address] [place] [phone] Notes/Report: Triglycerides 75 <150 mg/dL Desirable Triglyceride: [...] POC Reviewed date:02/09/2024 06:31:48 AM Interpretation: Performing Lab:[facility], [address] [place] [phone] Notes/Report: PT, INR - [facility] 3.0 0.9-1.1 METER #: [id number] INTERNATIONAL NORMALIZED RATIO (INR) REFERENCE RANGES Reference [...] OC Reviewed date:02/09/2024 06:31:48 AM Interpretation: Performing Lab:[facility], [address] [place] [phone] Notes/Report: Prothrombin Time Whole Bld POC 36.0 11.1-13.5 sec Hemoglobin A1c Reviewed date:02/09/2024 06:31:48 AM Interpretation: Performing Lab:[facility], [address] [place] [phone] Notes/Report: Hemoglobin A1c % 7.5 <6.0 % [...] average glucose, using the formula of the P5M-Zamrhor Average Glucose study (ADAG), Diabetes Care, Vol.31,#8, 2007 INR WHOLE BLOOD POC Reviewed date:02/23/2024 11:26:27 AM Interpretation: Performing Lab:[facility], [address] [place] [phone] Notes/Report: PT, INR - [facility] 2.4 0.9-1.1 METER #: [id number] INTERNATIONAL NORMALIZED RATIO (INR) REFERENCE RANGES Reference [...] OC Reviewed date:02/23/2024 11:26:27 AM Interpretation: Performing Lab:[facility], [address] [place] [phone] Notes/Report: Prothrombin Time Whole Bld POC 28.8 11.1-13.5 sec INR WHOLE BLOOD POC Reviewed date:03/14/2024 03:12:08 PM Interpretation: Performing Lab:[facility], [address] [place] [phone] Notes/Report: PT, INR - [facility] 2.6 0.9-1.1 METER #: [id number] INTERNATIONAL NORMALIZED RATIO (INR) REFERENCE RANGES Reference [...] OC Reviewed date:03/14/2024 03:12:08 PM Interpretation: Performing Lab:[facility], [address] [place] [phone] Notes/Report: Prothrombin Time Whole Bld POC 30.7 11.1-13.5 sec INR WHOLE BLOOD POC Reviewed date:03/28/2024 02:06:07 PM Interpretation: Performing Lab:[facility], [address] [place] [phone] Notes/Report: PT, INR - [facility] 2.4 0.9-1.1 METER #: [id number] INTERNATIONAL NORMALIZED RATIO (INR) REFERENCE RANGES Reference [...] OC Reviewed date:03/28/2024 02:06:07 PM Interpretation: Performing Lab:[facility], [address] [place] [phone] Notes/Report: Prothrombin Time Whole Bld POC 29.2 11.1-13.5 sec INR WHOLE BLOOD POC Reviewed date:04/04/2024 09:01:19 PM Interpretation: Performing Lab:[facility], [address] [place] [phone] Notes/Report: PT, INR - [facility] 2.4 0.9-1.1 METER #: [id number] INTERNATIONAL NORMALIZED RATIO (INR) REFERENCE RANGES Reference [...] OC Reviewed date:04/04/2024 09:01:19 PM Interpretation: Performing Lab:[facility], [address] [place] [phone] Notes/Report: Prothrombin Time Whole Bld POC 28.9 11.1-13.5 sec INR WHOLE BLOOD POC Reviewed date:04/24/2024 05:20:08 AM Interpretation: Performing Lab:[facility], [address] [place] [phone] Notes/Report: PT, INR - [facility] 2.6 0.9-1.1 METER #: [id number] INTERNATIONAL NORMALIZED RATIO (INR) REFERENCE RANGES Reference [...] OC Reviewed date:04/24/2024 05:20:08 AM Interpretation: Performing Lab:[facility], [address] [place] [phone] Notes/Report: Prothrombin Time Whole Bld POC 31.6 11.1-13.5 sec INR WHOLE BLOOD POC Reviewed date:05/12/2024 04:18:48 PM Interpretation: Performing Lab:[facility], [address] [place] [phone] Notes/Report: PT, INR - [facility] 1.9 0.9-1.1 METER #: [id number] INTERNATIONAL NORMALIZED RATIO (INR) REFERENCE RANGES Reference [...] OC Reviewed date:05/12/2024 04:18:48 PM Interpretation: Performing Lab:[facility], [address] [place] [phone] Notes/Report: Prothrombin Time Whole Bld POC 23.3 11.1-13.5 sec INR WHOLE BLOOD POC Reviewed date:05/29/2024 10:54:12 AM Interpretation: Performing Lab:[facility], [address] [place] [phone] Notes/Report: PT, INR - [facility] 2.4 0.9-1.1 METER #: [id number] INTERNATIONAL NORMALIZED RATIO (INR) REFERENCE RANGES Reference [...] Prothrombin Time Whole Bld P OC Reviewed date:05/29/2024 10:54:12 AM Interpretation: Performing Lab:[facility], [address] [place] [phone] Notes/Report: Prothrombin Time Whole Bld POC 29.1 11.1-13.5 sec INR WHOLE BLOOD POC Reviewed date:06/19/2024 06:09:47 PM Interpretation: Performing Lab:[facility], [address] [place] [phone] Notes/Report: PT, INR - [facility] 2.2 0.9-1.1 METER #: [id number] INTERNATIONAL NORMALIZED RATIO (INR) REFERENCE RANGES Reference [...] Prothrombin Time Whole Bld P OC Reviewed date:06/19/2024 06:09:47 PM Interpretation: Performing Lab:[facility], [address] [place] [phone] Notes/Report: Prothrombin Time Whole Bld POC 26.9 11.1-13.5 sec INR WHOLE BLOOD POC Reviewed date:06/28/2024 09:04:14 AM Interpretation: Performing Lab:[facility], [address] [place] [phone] Notes/Report: PT, INR - [facility] 2.6 0.9-1.1 METER #: [id number] INTERNATIONAL NORMALIZED RATIO (INR) REFERENCE RANGES Reference [...] Prothrombin Time Whole Bld P OC Reviewed date:06/28/2024 09:04:14 AM Interpretation: Performing Lab:[facility], [address] [place] [phone] Notes/Report: Prothrombin Time Whole Bld POC 31.7 11.1-13.5 sec INR WHOLE BLOOD POC Reviewed date:08/01/2024 12:17:16 PM Interpretation: Performing Lab:[facility], [address] [place] [phone] Notes/Report: PT, INR - [facility] 2.0 0.9-1.1 METER #: [id number] INTERNATIONAL NORMALIZED RATIO (INR) REFERENCE RANGES Reference [...] Prothrombin Time Whole Bld P OC Reviewed date:08/01/2024 12:17:17 PM Interpretation: Performing Lab:[facility], [address] [place] [phone] Notes/Report: Prothrombin Time Whole Bld POC 24.5 11.1-13.5 sec INR WHOLE BLOOD POC Reviewed date:08/01/2024 12:17:16 PM Interpretation: Performing Lab:[facility], [address] [place] [phone] Notes/Report: PT, INR - [facility] 1.7 0.9-1.1 METER #: [id number] INTERNATIONAL NORMALIZED RATIO (INR) REFERENCE RANGES Reference [...] Prothrombin Time Whole Bld P OC Reviewed date:08/01/2024 12:17:16 PM Interpretation: Performing Lab:[facility], [address] [place] [phone] Notes/Report: Prothrombin Time Whole Bld POC 20.4 11.1-13.5 sec INR WHOLE BLOOD POC Reviewed date:08/07/2024 10:48:30 AM Interpretation: Performing Lab:[facility], [address] [place] [phone] Notes/Report: PT, INR - [facility] 2.5 0.9-1.1 METER #: [id number] INTERNATIONAL NORMALIZED RATIO (INR) REFERENCE RANGES Reference [...] Prothrombin Time Whole Bld P OC Reviewed date:08/07/2024 10:48:30 AM Interpretation: Performing Lab:[facility], [address] [place] [phone] Notes/Report: Prothrombin Time Whole Bld POC 29.5 11.1-13.5 sec INR WHOLE BLOOD POC Reviewed date:08/24/2024 08:14:12 PM Interpretation: Performing Lab:[address] [phone] Notes/Report: PT, INR - [facility]ag Clinic 2.8 0.9-1.1 METER #: [id number] INTERNATIONAL NORMALIZED RATIO (INR) REFERENCE RANGES Reference [...] Prothrombin Time Whole Bld P OC Reviewed date:08/24/2024 08:14:12 PM Interpretation: Performing Lab:[address] [phone] Notes/Report: Prothrombin Time Whole Bld POC 33.4 11.1-13.5 sec INR WHOLE BLOOD POC (Not yet reviewed by provider) Interpretation: Performing Lab:[address] [phone] Notes/Report: PT, INR - Anti [facility]ag Clinic 4.5 0.9-1.1 METER #: [id number] INTERNATIONAL NORMALIZED RATIO (INR) REFERENCE RANGES Reference [...] (Not yet reviewed by provider) Interpretation: Performing Lab:[address] [address] Notes/Report: Prothrombin Time Whole Bld POC 53.6 11.1-13.5 sec Reason For Referral No Information Medications Medication SIG (Take, Route, Frequency, Duration) Notes Start Date End Date Status Warfarin Sodium 4 MG as directed Orally Once a day Active FLUoxetine HCl 20 MG 1 capsule Orally On ce a day Active Metoprolol Tartrate 25 MG 1 tablet with food Orally Twice a day Active metFORMIN HCl 500 MG 1 tablet Orally Onc e a day for 30 days 07/25/2024 Active Atorvastatin Calcium 80 MG 1 tablet Oral ly Once a day Active Docusate Sodium Acti ve diazePAM 5 MG 1 tablet Orally ever y 4 hours for anxiety 01/12/2023 Active Gabapentin 100 MG 1 capsule Orally Onc e a day Active Omeprazole 20 MG 1 [...] Problem Status W/U Status Risk Notes Problem 6466176 Former smoker (Z87.891) Active confirmed He is unable to obtain cigarettes. She does not smoke since his stroke. She says she does not want to. Problem 28293903 Fibromyalgia (M79.7) Active confirmed Fibromyalgia lately has been low-grade she lives with a without a great deal difficulty. No medical therapies necessary. Problem DM - Diabetes mellitus (33105549) DM (diabetes mellitus) (E11.9) Active confirmed I have encouraged them to agree to treating the diabetes with an JAZZY inhibitor and metformin Problem Hyperglycemia (20887520) Hyperglycemia (R73.9) Active confirmed Problem 389704322 Gastro-esophagea l reflux disease without esophagitis (K21.9) Active confirmed She will continue on omeprazole and liquid antacid as needed. Problem 36344209 Essential hypertension (I10) Active confirmed Low Her blood pressure was 126/77 and no change in her regimen was necessary. Problem 367286750 Anticoagulation adequate (Z79.01) Active confirmed She has had no bleeding and is compliant with her therapy. Problem CVA - Cerebrovascular accident (750296829) CVA (cerebral vascular accident) (I63.9) Active confirmed She is currently anticoagulated because of the stroke. She has a dense right hemiplegia, but no further neurological symptoms. She is awake and alert and responsive to questions. Her speech is fluent. Problem 330706865 Morbid obesity (E66.01) Active confirmed He discussed her overweight status. We discussed diet and nutrition. We made plans for her to lose weight at a rate of one half of a pound per week. Problem 806465346 Gallstones (K80.20) Active confirmed She remains free of symptoms from her cholelithiasis. Problem Right hemiplegia (991040131) Right hemiplegia (G81.91) Active confirmed There has been no change in the weakness of the right arm and leg. She remains confined to a wheelchair. The weakness in the right arm is dense. Problem 800833402 Type 2 diabetes mellitus without complication, without long-term current use of insulin (E11.9) Active confirmed I have order ed comprehensive blood work with a hemoglobin A1c fasting glucose lipid profile and microalbumin. No change in her medications was made. Vital Signs Heart Rate 71 /min 07/14/2024 Temperature 98.8 degrees Fahrenheit 07/14/2024 Blood pressure diastolic 77 mm Hg 07/14/2024 Height 58 in 07/14/2024 Blood pressure systolic 126 mm Hg 07/14/2024 Weight 188 lbs 07/14/2024 BMI 39.29 kg/m2 07/14/2024 Encounters Encounter Location Date Provider Diagnosis Jose E Hubbard III, MD [address] [place] [address] [place] [address] 11/16/2023 Jose E Hubbard Essential hypertensi on I10 ; Type 2 diabetes mellitus without complication, without long-term current use of insulin E11.9 ; Fibromyalgia M79.7 ; Gastro-esophageal reflux disease without esophagitis K21.9 ; CVA (cerebral vascular accident) I63.9 ; Anticoagulation adequate Z79.01 and Right hemiplegia G81.91 Jose E Hubbard III, MD [address] [place] [address] [place] [address] 01/25/2024 Jose E Hubbard Essential hypertensi on I10 ; Morbid obesity E66.01 ; Type 2 diabetes mellitus without complication, without long-term current use of insulin E11.9 ; Fibromyalgia M79.7 ; Gastro-esophageal reflux disease without esophagitis K21.9 ; CVA (cerebral vascular accident) I63.9 ; Anticoagulation adequate Z79.01 ; Right hemiplegia G81.91 and Former smoker Z87.891 Jose E Hubbard III, MD [address] [place] [address] 02/16/2024 Jose E Hubbard Essential hypertensi on I10 ; DM (diabetes mellitus) E11.9 ; Fibromyalgia M79.7 ; Gastro-esophageal reflux disease without esophagitis K21.9 ; CVA (cerebral vascular accident) I63.9 ; Anticoagulation adequate Z79.01 ; Right hemiplegia G81.91 ; Former smoker Z87.891 and Obesity (BMI 30-39.9) E66.9 Jose E Hubbard III, MD [address] [place] [address] 07/14/2024 Jose E Hubbard Essential hypertensi on I10 ; CVA (cerebral vascular accident) I63.9 ; Gastro-esophageal reflux disease without esophagitis K21.9 ; Anticoagulation adequate Z79.01 ; Former smoker Z87.891 ; Fibromyalgia M79.7 and Right hemiplegia G81.91 Jose E Hubbard III, MD [address] [place] [address] 09/15/2023 Jose E Hubbard Essential hypertensi on I10 Jose E Hubbard III, MD [address] [place] [address] 10/20/2023 Jose E Hubbard III, MD [address] [facility] [place] [address] 11/08/2023 Jose E Hubbard III, MD [address] [place] [address] 12/15/2023 Jose E Hubbard Essential hypertensi on I10 Jose E Hubbard III, MD [address] [place] [address] 12/24/2023 Jose E Hubbard Essential hypertensi on I10 Jose E Hubbard III, MD [address] [place] [address] 03/17/2024 Jose E Hubbard III, MD [address] [place] [address] [place] [address] 07/25/2024 Jose E Hubbard III, MD [address] [place] [address] [address] [place], [place] [address] 07/25/2024 Jose E Hubbard Assessments Encounter Date Diagnosis (ICD Code) Assessment Notes Treat ment Notes Treatment Clinical Notes 11/16/2023 Essential hypertension (ICD-10 - I10) Her [...] change in her regimen was necessary. 07/14/2024 Essential hypertension (ICD-10 - I10) Her blood pressure was 126/77 and no change in her regimen was necessary. 07/14/2024 CVA (cerebral vascular accident) (ICD-10 - I63.9) She is currently anticoagulated because of the stroke. She has a dense right hemiplegia, but no further neurological symptoms. She is awake and alert and responsive to questions. Her speech is fluent. 09/15/2023 Essential hypertension (ICD-10 - I10) Her [...] change in her regimen was necessary. 11/16/2023 Fibromyalgia (ICD-10 - M79.7) Fibromyalgia lately [...] deal difficulty. No medical therapies necessary. 07/14/2024 Gastro-esophageal reflux disease without esophagitis (ICD-10 - K21.9) She will continue on omeprazole and liquid antacid as needed. 11/16/2023 Gastro-esophageal reflux disease without esophagitis (ICD-10 [...] and is compliant with her therapy. 11/16/2023 CVA (cerebral vascular accident) (ICD-10 - [...] to questions. Her speech is fluent. 07/14/2024 Former smoker (ICD-1 0 - Z87.891) He is unable to obtain cigarettes. She does not smoke since his stroke. She says she does not want to. 11/16/2023 Anticoagulation adequate (ICD-10 - Z79.01) She [...] and is compliant with her therapy. 07/14/2024 Fibromyalgia (ICD-10 - M79.7) Fibromyalgia lately has been low-grade she lives with a without a great deal difficulty. No medical therapies necessary. 11/16/2023 Right hemiplegia (ICD-10 - G81.91) There [...] weakness in the right arm is dense. 07/14/2024 Right hemiplegia (ICD-10 - G81.91) There [...] Order Date PROFILE, FASTING (COMPREHENSIVE METABOLI C) 04/15/2022 PROFILE, FASTING (COMPREHENSIVE METABOLI C) 07/14/2024 PROFILE, FASTING (COMPREHENSIVE METABOLI C) 01/09/2020 PROFILE, [...] PROFILE, FASTING (COMPREHENSIVE METABOLI C) 11/16/2023 PROFILE, RANDOM (COMPREHENSIVE METABOLIC ) 10/23/2021 PROFILE, RANDOM (COMPREHENSIVE METABOLIC ) 04/20/2019 HEMOGLOBIN A1C (GLYCOHEMOGLOBIN) 023 LIPID PANEL 04/20/2019 LIPID PANEL 04/15/2022 LIPID PANEL 01/05/2023 LIPID PANEL 01/09/2020 LIPID PANEL 06/03/2020 LIPID PANEL 02/10/2022 LIPID PANEL 10/05/2022 LIPID PANEL 10/13/2018 LIPID PANEL 06/15/2019 LIPID PANEL 07/08/2022 LIPID PANEL 03/05/2020 LIPID PANEL 09/02/2020 MICROALBUMIN, RANDOM 01/05/2023 CBC w DIFF 04/07/2023 CBC w DIFF 03/05/2020 CBC w DIFF 09/02/2020 CBC w DIFF 04/20/2019 CBC w DIFF 04/15/2022 CBC w DIFF 01/09/2020 CBC w DIFF 06/03/2020 CBC w DIFF 01/05/2023 CBC w DIFF 02/10/2022 CBC w DIFF 10/05/2022 CBC w DIFF 10/13/2018 CBC w DIFF 06/15/2019 CBC w DIFF 11/10/2021 CBC w DIFF 07/08/2022 CBC w DIFF 10/23/2021 PROTHROMBIN TIME (PT, INR) 04/15/2020 URINE CULTURE 06/26/2020 ROUTINE CULTURE 12/05/2014 XR CHEST 2 VIEW PA & LAT 08/04/2022 MAMMOGRAM DIGITAL BILATERAL SCREEN 09/15 US ABD 09/15/2021 US ABD 02/10/2022 [facility] 03/08/20 17 CBC WITH AUTO DIFF 11/16/2023 CBC WITH AUTO DIFF 07/14/2024 CBC WITH AUTO DIFF 07/13/2023 CBC WITH AUTO DIFF 02/16/2024 Urinalysis 06/26/2020 Lipid Panel 11/10/2021 Lipid Panel 04/07/2023 Lipid Panel 11/16/2023 Lipid Panel 07/14/2024 Lipid Panel 07/13/2023 Lipid Panel 02/16/2024 Microalbumin, Random 07/14/2024 INR WHOLE BLOOD POC 09/06/2024 Prothrombin Time Whole Bld POC T Spot TB 08/04/2022 US abdomen complete 07/08/2022 Hemoglobin A1c 07/14/2024 Next Appt Details Provider Name:Jose E Hubbard, 10/11/2024 10:00:00 AM, [address] [facility] [address], [place], [address], Provider Name:Jose E Hubabrd, 07/17/2025 10:00:00 AM, [address] [facility] [address], [place], [address], Insurance Providers Payer Name Payer Address Payer Phone Subscriber Number Group Number Insured Name Patient Relationship to Insured Coverage Start Date Coverage End Date MEDICARE NGS [address] [place] [address] [phone] [id number] Malu Garcia Self - patient is the insured [place] [address] [place] [id number] [phone] [id number] Malu Garcia Self - patient is the insured Medical (General) History Medical History History ICD Code gerd degenerative disc disease cervical spine plantar warts gastritis fibromyalgia right shoulder pain essential hypertension left hemisphere infarction right hemiparasis chronic anticoagulation Tinea unguium B35.1 Plantar wart B07.0 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 Chela Davila 03/2022 Hospitalization History Reason Date(Month/Year) stroke 07/05
--- OUTSIDE RECORDS SUMMARY | 2024-09-06 11:32 | XMS_ITS ---
Author Organization Jose E Hubbard III, MD Address [address] [place] [address] [address] [facility] [place] [place] [address] Care Team Providers Care Profile Grinder Technician Name Role Phone Jose E Hubbard Primary [...] Provider Diagnosis Jose E Hubbard III, MD [address] [place] [address] [address]ADKARLOS, [place] [address] 07/14/2024 Jose E Hubbard Essential hypertensi on [...] Provider Name:Jose E Hubbard, 10/11/2024 10:00:00 AM, [address] [place] [address] [address], [place], [address], Provider Name:Jose E Hubbard, 07/17/2025 10:00:00 AM, [address] [place] [address] MON[address], [place], [address], Progress Notes * Malu GARCIADOB:1955 ([age] yo F)Acc No.[id number]:07/14/2024 Progress Notes Patient:?Malu GARCIA Provider:?Jose E Hubbard MD :1955???Age:68 Y???Sex:Female D ate:07/14/2024 Address:[address] [place], [place] [phone] Subjective: * Chief Complaints: * ???Annual Exam [...] Medical History:? * Surgical History:?Negative c olonoscopy, [facility], Dr. York 03/2022 * Hospitalization/Major Diagno stic [...] Findings: Tobacco Non-User?Ex-cigarette smoker ???She lives in [place]. She was born in [place]. She has been since 1997 and [...] Provider:?Jose E Hubbard MD Date:?06/18 Generated for TrackingPoint vernon/Kiko/eTransmitting on:?09/06/2024 11:32 AM EDT History and Physical Notes * [...]
== END 2024-09-06 10:26 | disposition home or self-care (01) ==
LOC: HO.ACS 10:03
PROVIDERS: PCP Internal Medicine Medical Oncology; Visit Provider Internal Medicine Medical Oncology
DX: Z79.01 Long term (current) use of anticoagulants (principal)

== ENCOUNTER → 2024-09-06 10:03 | Outpatient (BNVA) | payer MEDICARE, MEDICAID, SELFPAY | PROVIDERS: PCP Internal Medicine Medical Oncology; Visit Provider Internal Medicine Medical Oncology | DX: Z86.73 Personal history of transient ischemic attack (TIA), and cerebral infarction without residual deficits (principal); Z79.01 Long term (current) use of anticoagulants; Z51.81 Encounter for therapeutic drug level monitoring | CPT/HCPCS: 85610; 99211 ==

== ENCOUNTER 2024-09-13 10:05 | Outpatient (AMB) | payer MEDICARE, MEDICAID, SELFPAY ==
[2024-09-13 10:11] LABS: Prothrombin Time Whole Bld POC 36.2 sec (11.1-13.5)
--- NOTE | 2024-09-13 10:21 | MHC.OFFVISCO ---
Intake Intake Visit Reasons: Anticoagulation Allergies acetaminophen [Percocet] Allergy (Severe, Verified 09/13/24 10:06) ITCHY RASH oxycodone [Percocet] Allergy (Severe, Verified 09/13/24 10:06) Itching Penicillins [PENICILLINS] Allergy (Intermediate, Verified 09/13/24 10:06) itchy rash naproxen [NAPROXEN] Allergy (Unknown, Verified 09/13/24 10:06) STOMACH PAIN Medication List - Last Reconciled 09/13/24 by Anali Louis RN acetaminophen ER mg PO atorvastatin 80 mg PO DAILY bisacodyl 10 mg PO BEDTIME chlorhexidine gluconate 0.12% PO docusate sodium 100 mg PO BEDTIME fluoxetine 20 mg PO DAILY gabapentin 100 mg PO DAILY metformin 500 mg PO DAILY metoprolol tartrate 25 mg PO BID omeprazole 20 mg PO DAILY warfarin 4 mg See Protocol PO DAILY Nursing Note NO CP,SOB,DIET/MED CHANGES,FALLS OR SX OFBLEEDING. RESUME PRESENT DOSING AND FOLLOW-UP IN 2 WEEKS. GREENSyeda TODAY GOOD UNDERSTANDING OF DOSING INSTR. Anti-Coag Initial Assessment Social Hx Patient Tobacco Use Status: Never used Tobacco alcohol intake: never Alcohol intake frequency: does not drink Coding Level of Care Code Est Patient Level 1 Diagnoses Current use of anticoagulant therapy Z79.01 Assessment & Plan Assessment & Plan (1) Current use of anticoagulant therapy: Code(s): Z79.01 - intermediate (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
--- OUTSIDE RECORDS SUMMARY | 2024-09-13 11:04 | XMS_ITS | Clinical Summary ---
Author Organization [employer] Address [address] [facility] 7[address] [place] [address] Care Team Providers Care Pullboat Engineer Name Role Phone Unavailable Primary Care Provider [...]
--- OUTSIDE RECORDS SUMMARY | 2024-09-13 11:04 | XMS_ITS | Clinical Summary ---
Author Organization [facility] Address [address] [place] [address] Care Team Providers Care Middle School Sports Coach Name Role Phone Unavailable Primary Care Provider [...] Documents on File Type Date Recorded Patient Watch And Clock Repair Clerk Expl anation Health Care Decision (hx) 07/20/2018 AD ALMA ROSA DIRECTIVE
== END 2024-09-13 10:47 | disposition home or self-care (01) ==
LOC: HO.ACS 10:05
PROVIDERS: PCP Internal Medicine Medical Oncology; Visit Provider Internal Medicine Medical Oncology
DX: Z79.01 Long term (current) use of anticoagulants (principal)

== ENCOUNTER → 2024-09-13 10:05 | Outpatient (BNVA) | payer MEDICARE, MEDICAID, SELFPAY | PROVIDERS: PCP Internal Medicine Medical Oncology; Visit Provider Internal Medicine Medical Oncology | DX: I69.30 Unspecified sequelae of cerebral infarction (principal); Z79.01 Long term (current) use of anticoagulants; Z51.81 Encounter for therapeutic drug level monitoring | CPT/HCPCS: 85610; 99211 ==

== ENCOUNTER 2024-09-27 10:19 | Outpatient (AMB) | payer MEDICARE, MEDICAID, SELFPAY ==
--- NOTE | 2024-09-27 10:25 | MHC.OFFVISCO ---
Intake Intake Visit Reasons: Anticoagulation Allergies acetaminophen [Percocet] Allergy (Severe, Verified 09/27/24 10:20) ITCHY RASH oxycodone [Percocet] Allergy (Severe, Verified 09/27/24 10:20) Itching Penicillins [PENICILLINS] Allergy (Intermediate, Verified 09/27/24 10:20) itchy rash naproxen [NAPROXEN] Allergy (Unknown, Verified 09/27/24 10:20) STOMACH PAIN Medication List - Last Reconciled 09/27/24 by Ana Maria Mccullough RN acetaminophen ER mg PO atorvastatin 80 mg PO DAILY bisacodyl 10 mg PO BEDTIME chlorhexidine gluconate 0.12% PO docusate sodium 100 mg PO BEDTIME fluoxetine 20 mg PO DAILY gabapentin 100 mg PO DAILY metformin 500 mg PO DAILY metoprolol tartrate 25 mg PO BID omeprazole 20 mg PO DAILY warfarin 4 mg See Protocol PO DAILY Nursing Note INR 3.2? out of therapeutic range of 2-3 Medications and supplements reviewed Patient status: no c.o, denies tylenol usage, denies diarrhea or reduced appetite Medications or supplements: no changes Diet: same Denies any signs and symptoms of bleeding or clotting or unusual bruising Bleeding, bruising, clotting discussed Nutritional guidance given: eat greens to lower inr- cooked greens Dose: cont same dosing F/U INR Date : 1 week?? Patient verbalizing understanding of instructions given. Anti-Coag Initial Assessment Social Hx Patient Tobacco Use Status: Never used Tobacco alcohol intake: never Alcohol intake frequency: does not drink Coding Level of Care Code Est Patient Level 1 Diagnoses Current use of anticoagulant therapy Z79.01 Assessment & Plan Assessment & Plan (1) Current use of anticoagulant therapy: Code(s): Z79.01 - prison (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
[2024-09-27 10:26] LABS: Prothrombin Time Whole Bld POC 38.7 sec (11.1-13.5); ~PT, ~INR - Anti Coag Clinic 3.2 (0.9-1.1)
--- OUTSIDE RECORDS SUMMARY | 2024-09-27 11:17 | XMS_ITS | Clinical Summary ---
Author Organization [facility] ity Address [address] [place] [address] Care Team Providers Care Service Order Dispatcher Chief Name Role Phone Unavailable Primary Care Provider [...] Documents on File Type Date Recorded Patient Bow Maker Expl anation Health Care Decision (hx) 07/20/2018 AD ALMA ROSA DIRECTIVE
--- OUTSIDE RECORDS SUMMARY | 2024-09-27 11:17 | XMS_ITS ---
Author Organization Jose E Hubbard III, MD Address [address] [place] [address] [place] [address] Care Team Providers Care Crystal Finisher Name Role Phone Jose E Hubbard Primary Care Provider [phone] Medications Medication SIG (Take, Route, Frequency, Duration) Notes Start Date End Date Status Atorvastatin Calcium 80 MG 1 tablet Oral ly Once a day for 90 days Active Social History Sex Assigned At : Social History Observation Description Sex Assigned At Female Encounters Encounter Location Date Provider Diagnosis Jose E Hubbard III, MD [address] [place] [address] [place] [address] 09/26/2024 Jose E Hubbard Plan Of Treatment Medication Medication Name Sig Start Date Stop Date Notes Atorvastatin Calcium 80 MG 1 tablet Oral ly Once a day for 90 days Next Appt Details Provider Name:Jose E Hubbard, 10/11/2024 10:00:00 AM, [address] [place] [address] [place], [address], Provider Name:Jose E Hubbard, 07/17/2025 10:00:00 AM, [address] [place] [address] [place], [address], Progress Notes * Malu GARCIADOB:1955 ([age] yo F)Acc No.[id number]:09/26/2024 Patient:Malu GRAY :1955???Age:68 Y???Sex:Female Address:[address] [place] [address] [place] [address] * Refills? Refill Atorvastatin Calcium Tablet, 80 MG, Orally, 90 Tablet, 1 tablet, Once a day, 90 days, Refills=3 * true * Date:? Generated for Michael junior/Kiko/Petra on:?09/27/2024 11:17 AM EDT
--- OUTSIDE RECORDS SUMMARY | 2024-09-27 11:17 | XMS_ITS ---
Author Organization Jose E Hubbard III, MD Address [address] [place] [address] [place] [address] Care Team Providers Care Avionics Shop Supervisor Name Role Phone Jose E Hubbard Primary Care Provider REASON FOR VISIT refills needed Medications Medication [...] Diagnosis Jose E Hubbard III, MD [address] [place] [address] [place] [address] 09/20/2024 Jose E Hubbard Essential hypertensi on [...] Provider Name:Jose E Hubbard, 10/11/2024 10:00:00 AM, [address] [place] [address] [place], [address], Provider Name:Jose E Hubbard, 07/17/2025 10:00:00 AM, [address] [place] [address] [place], [address], Progress Notes * Malu GARCIADOB:1955 ([age] yo F)Acc No.[id number]:09/20/2024 Patient:Malu GRAY :1955???Age:68 Y???Sex:Female Address:[address] [place] [address], [place] [address] * Refills? Refill FLUoxetine HCl Capsule, 20 MG, Orally, 90, 1 capsule, Once a day, 90 days, Refills=3 Refill Metoprolol Tartrate Tablet, 25 MG, Orally, 180, 1 tablet with food, Twice a day, 90 days, Refills=3 * true * Date:? Generated for Michael junior/Kiko/Eugenieitting on:?09/27/2024 11:17 AM EDT
--- OUTSIDE RECORDS SUMMARY | 2024-09-27 11:18 | XMS_ITS ---
Author Organization Jose E Hubbard III, MD Address [address] [place] [address] [place] [address] Care Team Providers Care Obedience Trainer Name Role Phone Jose E Hubbard Primary [...] Diagnosis Jose E Hubbard III, MD [address] [place] [address] [place] [address] 07/25/2024 Jose E Hubbard Plan Of Treatment Medication Medication Name Sig Start Date Stop Date Notes metFORMIN HCl 500 MG 1 tablet Orally Onc e a day for 30 days 07/25/2024 Next Appt Details Provider Name:Jose E Hubbard, 10/11/2024 10:00:00 AM, [address] [place] [address] [place], [place], [address], Provider Name:Jose E Hubbard, 07/17/2025 10:00:00 AM, [address] [place] [address] [place], [address], Progress Notes * Malu GARCIADOB:1955 ([age] yo F)Acc No.[id number]:07/25/2024 Patient:?ATTILA Malu :1955???Age:68 Y???Sex:Female [address]: [address] [facility] [place] [address] * Refills? Start metFORMIN HCl Tablet, 500 MG, Orally, 30 Tablet, 1 tablet, Once a day, 30 days, Refills=11 * true * Date:? Generated for Michael junior/Kiko/Eugenieitting on:?09/27/2024 11:17 AM EDT
--- OUTSIDE RECORDS SUMMARY | 2024-09-27 11:18 | XMS_ITS | Patient Health Record ---
Author Organization Jose E Hubbard III, MD Address [address] [place] [address] DR M[place]ENE[place]O [facility] [place] [address] Care Team Providers Care Associate Professor Of Theology Name Role Phone Jose E Hubbard Primary Care Provider [phone] Allergies Allergen (clinical drug ingredient) Drug/Non Drug Allergy documented on EMR Reaction Allergy Type Onset Date Status acetaminophen / oxycodone Percocet Unknown Drug Allergy Active miconazole Monistat 3 burning Drug Allergy Activ e Results Component Value Reference Range Notes RBS/Hemocue glucose Reviewed date:02/16/2024 09:42:15 AM Interpretation: Performing Lab: Notes/Report: RBS 108 INR WHOLE BLOOD POC Reviewed date:10/15/2023 08:46:13 PM Interpretation: Performing Lab:[facility], [address] [place] [phone] Notes/Report: PT, INR - [facility] Clinic 2.9 0.9-1.1 METER #: [id number] INTERNATIONAL NORMALIZED RATIO (INR) REFERENCE RANGES Reference [...] OC Reviewed date:10/15/2023 08:46:13 PM Interpretation: Performing Lab:[facility], [address] [place] [phone] Notes/Report: Prothrombin Time Whole Bld POC 34.2 11.1-13.5 sec INR WHOLE BLOOD POC Reviewed date:11/06/2023 05:26:31 AM Interpretation: Performing Lab:[facility], [address] [place] [phone] Notes/Report: PT, INR - Anti Coag Clinic 2.5 0.9-1.1 METER #: [id number] INTERNATIONAL NORMALIZED RATIO (INR) REFERENCE RANGES Reference [...] OC Reviewed date:11/06/2023 05:26:31 AM Interpretation: Performing Lab:[facility], [address] [place] [phone] Notes/Report: Prothrombin Time Whole Bld POC 30.1 11.1-13.5 sec INR WHOLE BLOOD POC Reviewed date:12/07/2023 06:47:16 AM Interpretation: Performing Lab:[facility], [address] [place] [phone] Notes/Report: PT, INR - [facility]ag Clinic 3.6 0.9-1.1 METER #: [id number] INTERNATIONAL NORMALIZED RATIO (INR) REFERENCE RANGES Reference [...] OC Reviewed date:12/07/2023 06:47:16 AM Interpretation: Performing Lab:[address] [phone] Notes/Report: Prothrombin Time Whole Bld POC 43.1 11.1-13.5 sec INR WHOLE BLOOD POC Reviewed date:12/17/2023 08:58:55 PM Interpretation: Performing Lab:[facility], [address] [place] [phone] Notes/Report: PT, INR - [facility]ag Clinic 3.4 0.9-1.1 METER #: [id number] INTERNATIONAL NORMALIZED RATIO (INR) REFERENCE RANGES Reference [...] OC Reviewed date:12/17/2023 08:58:55 PM Interpretation: Performing Lab:[facility], [address] [place] [phone] Notes/Report: Prothrombin Time Whole Bld POC 40.6 11.1-13.5 sec INR WHOLE BLOOD POC Reviewed date:01/02/2024 06:34:15 AM Interpretation: Performing Lab:[facility], [address] [place] [phone] Notes/Report: PT, INR - [facility] 3.6 0.9-1.1 METER #: [id number] INTERNATIONAL NORMALIZED RATIO (INR) REFERENCE RANGES Reference [...] OC Reviewed date:01/02/2024 06:34:15 AM Interpretation: Performing Lab:[facility], [address] [place] [phone] Notes/Report: Prothrombin Time Whole Bld POC 42.9 11.1-13.5 sec INR WHOLE BLOOD POC Reviewed date:01/12/2024 11:07:47 AM Interpretation: Performing Lab:[facility], [address] [place] [phone] Notes/Report: PT, INR - Anti Coag Clinic 3.1 0.9-1.1 METER #: [id number] INTERNATIONAL NORMALIZED RATIO (INR) REFERENCE RANGES Reference [...] OC Reviewed date:01/12/2024 11:07:47 AM Interpretation: Performing Lab:[facility], [address] [place] [phone] Notes/Report: Prothrombin Time Whole Bld POC 37.0 11.1-13.5 sec INR WHOLE BLOOD POC Reviewed date:01/25/2024 04:12:11 PM Interpretation: Performing Lab:[facility], [address] [place] [phone] Notes/Report: PT, INR - [facility]ag [facility] 2.2 0.9-1.1 METER #: [id number] INTERNATIONAL NORMALIZED RATIO (INR) REFERENCE RANGES Reference [...] OC Reviewed date:01/25/2024 04:12:11 PM Interpretation: Performing Lab:[facility], [address] [place] [phone] Notes/Report: Prothrombin Time Whole Bld POC 26.6 11.1-13.5 sec Complete Blood Count Auto Di ff Reviewed date:02/09/2024 06:31:48 AM Interpretation: Performing Lab:[facility], [address] [place] [phone] Notes/Report: White Blood Count 9.2 4.8-10.8 X10*3/uL [...] NRBC Abs Auto 0.000 0.0-0.012 X10*3/uL Comprehensive [place]. Panel Fa st Reviewed date:02/09/2024 06:31:49 AM Interpretation: Performing Lab:[facility], [address] [place] [phone] Notes/Report: Sodium 143 135-145 mmol/L Potassium 4.3 3.3-5.1 mmol/L Chloride 112 96-108 mmol/L Carbon Dioxide 24 22-29 mmol/L Anion Gap 11 12-20 Blood Urea Nitrogen 29 9-16 mg/dL Creatinine 0.78 0.5-1.4 mg/dL Estimated Glomerular Filt Rate > 60 NOTE: For -[place] individuals, multiply the result by 1.210. Chronic [...] Panel Reviewed date:02/09/2024 06:31:49 AM Interpretation: Performing Lab:[facility], [address] [place] [phone] Notes/Report: Triglycerides 75 <150 mg/dL Desirable Triglyceride: [...] POC Reviewed date:02/09/2024 06:31:48 AM Interpretation: Performing Lab:[facility], [address] [place] [phone] Notes/Report: PT, INR - [facility] 3.0 0.9-1.1 METER #: [id number] INTERNATIONAL NORMALIZED RATIO (INR) REFERENCE RANGES Reference [...] OC Reviewed date:02/09/2024 06:31:48 AM Interpretation: Performing Lab:[facility], [address] [place] [phone] Notes/Report: Prothrombin Time Whole Bld POC 36.0 11.1-13.5 sec Hemoglobin A1c Reviewed date:02/09/2024 06:31:48 AM Interpretation: Performing Lab:[facility], [address] [place] [phone] Notes/Report: Hemoglobin A1c % 7.5 <6.0 % [...] average glucose, using the formula of the I2S-Hzmarrg Average Glucose study (ADAG), Diabetes Care, Vol.31,#8, Dec. 2007 INR WHOLE BLOOD POC Reviewed date:02/23/2024 11:26:27 AM Interpretation: Performing Lab:[facility], [address] [place] [phone] Notes/Report: PT, INR - [facility] 2.4 0.9-1.1 METER #: [id number] INTERNATIONAL NORMALIZED RATIO (INR) REFERENCE RANGES Reference [...] OC Reviewed date:02/23/2024 11:26:27 AM Interpretation: Performing Lab:[facility], [address] [place] [phone] Notes/Report: Prothrombin Time Whole Bld POC 28.8 11.1-13.5 sec INR WHOLE BLOOD POC Reviewed date:03/14/2024 03:12:08 PM Interpretation: Performing Lab:[facility], [address] [place] [phone] Notes/Report: PT, INR - [facility] 2.6 0.9-1.1 METER #: [id number] INTERNATIONAL NORMALIZED RATIO (INR) REFERENCE RANGES Reference [...] OC Reviewed date:03/14/2024 03:12:08 PM Interpretation: Performing Lab:[facility], [address] [place] [phone] Notes/Report: Prothrombin Time Whole Bld POC 30.7 11.1-13.5 sec INR WHOLE BLOOD POC Reviewed date:03/28/2024 02:06:07 PM Interpretation: Performing Lab:[facility], [address] [place] [phone] Notes/Report: PT, INR - [facility] 2.4 0.9-1.1 METER #: [id number] INTERNATIONAL NORMALIZED RATIO (INR) REFERENCE RANGES Reference [...] OC Reviewed date:03/28/2024 02:06:07 PM Interpretation: Performing Lab:[facility], [address] [place] [phone] Notes/Report: Prothrombin Time Whole Bld POC 29.2 11.1-13.5 sec INR WHOLE BLOOD POC Reviewed date:04/04/2024 09:01:19 PM Interpretation: Performing Lab:[facility], [address] [place] [phone] Notes/Report: PT, INR - [facility] 2.4 0.9-1.1 METER #: [id number] INTERNATIONAL NORMALIZED RATIO (INR) REFERENCE RANGES Reference [...] OC Reviewed date:04/04/2024 09:01:19 PM Interpretation: Performing Lab:[facility], [address] [place] [phone] Notes/Report: Prothrombin Time Whole Bld POC 28.9 11.1-13.5 sec INR WHOLE BLOOD POC Reviewed date:04/24/2024 05:20:08 AM Interpretation: Performing Lab:[facility], [address] [place] [phone] Notes/Report: PT, INR - [facility] 2.6 0.9-1.1 METER #: [id number] INTERNATIONAL NORMALIZED RATIO (INR) REFERENCE RANGES Reference [...] OC Reviewed date:04/24/2024 05:20:08 AM Interpretation: Performing Lab:[facility], [address] [place] [phone] Notes/Report: Prothrombin Time Whole Bld POC 31.6 11.1-13.5 sec INR WHOLE BLOOD POC Reviewed date:05/12/2024 04:18:48 PM Interpretation: Performing Lab:[facility], [address] [place] [phone] Notes/Report: PT, INR - [facility] 1.9 0.9-1.1 METER #: [id number] INTERNATIONAL NORMALIZED RATIO (INR) REFERENCE RANGES Reference [...] OC Reviewed date:05/12/2024 04:18:48 PM Interpretation: Performing Lab:[facility], [address] [place] [phone] Notes/Report: Prothrombin Time Whole Bld POC 23.3 11.1-13.5 sec INR WHOLE BLOOD POC Reviewed date:05/29/2024 10:54:12 AM Interpretation: Performing Lab:[facility], [address] [place] [phone] Notes/Report: PT, INR - [facility] 2.4 0.9-1.1 METER #: [id number] INTERNATIONAL NORMALIZED RATIO (INR) REFERENCE RANGES Reference [...] OC Reviewed date:05/29/2024 10:54:12 AM Interpretation: Performing Lab:[facility], [address] [place] [phone] Notes/Report: Prothrombin Time Whole Bld POC 29.1 11.1-13.5 sec INR WHOLE BLOOD POC Reviewed date:06/19/2024 06:09:47 PM Interpretation: Performing Lab:[facility], [address] [place] [phone] Notes/Report: PT, INR - [facility] 2.2 0.9-1.1 METER #: [id number] INTERNATIONAL NORMALIZED RATIO (INR) REFERENCE RANGES Reference [...] OC Reviewed date:06/19/2024 06:09:47 PM Interpretation: Performing Lab:[facility], [address] [place] [phone] Notes/Report: Prothrombin Time Whole Bld POC 26.9 11.1-13.5 sec INR WHOLE BLOOD POC Reviewed date:06/28/2024 09:04:14 AM Interpretation: Performing Lab:[facility], [address] [place] [phone] Notes/Report: PT, INR - [facility] 2.6 0.9-1.1 METER #: [id number] INTERNATIONAL NORMALIZED RATIO (INR) REFERENCE RANGES Reference [...] OC Reviewed date:06/28/2024 09:04:14 AM Interpretation: Performing Lab:[facility], [address] [place] [phone] Notes/Report: Prothrombin Time Whole Bld POC 31.7 11.1-13.5 sec INR WHOLE BLOOD POC Reviewed date:08/01/2024 12:17:16 PM Interpretation: Performing Lab:[facility], [address] [place] [phone] Notes/Report: PT, INR - [facility] 2.0 0.9-1.1 METER #: [id number] INTERNATIONAL NORMALIZED RATIO (INR) REFERENCE RANGES Reference [...] OC Reviewed date:08/01/2024 12:17:17 PM Interpretation: Performing Lab:[facility], [address] [place] [phone] Notes/Report: Prothrombin Time Whole Bld POC 24.5 11.1-13.5 sec INR WHOLE BLOOD POC Reviewed date:08/01/2024 12:17:16 PM Interpretation: Performing Lab:[facility], [address] [place] [phone] Notes/Report: PT, INR - [facility] 1.7 0.9-1.1 METER #: [id number] INTERNATIONAL NORMALIZED RATIO (INR) REFERENCE RANGES Reference [...] OC Reviewed date:08/01/2024 12:17:16 PM Interpretation: Performing Lab:[facility], [address] [place] [phone] Notes/Report: Prothrombin Time Whole Bld POC 20.4 11.1-13.5 sec INR WHOLE BLOOD POC Reviewed date:08/07/2024 10:48:30 AM Interpretation: Performing Lab:[facility], [address] [place] [phone] Notes/Report: PT, INR - [facility] 2.5 0.9-1.1 METER #: [id number] INTERNATIONAL NORMALIZED RATIO (INR) REFERENCE RANGES Reference [...] OC Reviewed date:08/07/2024 10:48:30 AM Interpretation: Performing Lab:[facility], [address] [place] [phone] Notes/Report: Prothrombin Time Whole Bld POC 29.5 11.1-13.5 sec INR WHOLE BLOOD POC Reviewed date:08/24/2024 08:14:12 PM Interpretation: Performing Lab:[facility], [address] [place] [phone] Notes/Report: PT, INR - [facility] 2.8 0.9-1.1 METER #: [id number] INTERNATIONAL NORMALIZED RATIO (INR) REFERENCE RANGES Reference [...] OC Reviewed date:08/24/2024 08:14:12 PM Interpretation: Performing Lab:[facility], [address] [place] [phone] Notes/Report: Prothrombin Time Whole Bld POC 33.4 11.1-13.5 sec INR WHOLE BLOOD POC Reviewed date:09/13/2024 03:54:56 PM Interpretation: Performing Lab:[facility], [address] [place] [phone] Notes/Report: PT, INR - [facility] 4.5 0.9-1.1 METER #: [id number] INTERNATIONAL NORMALIZED RATIO (INR) REFERENCE RANGES Reference [...] Prothrombin Time Whole Bld P OC Reviewed date:09/13/2024 03:54:56 PM Interpretation: Performing Lab:[address] [phone] Notes/Report: Prothrombin Time Whole Bld POC 53.6 11.1-13.5 sec INR WHOLE BLOOD POC Reviewed date:09/13/2024 03:54:56 PM Interpretation: Performing Lab:[facility], [address] [place] [phone] Notes/Report: PT, INR - [facility]ag Clinic 3.0 0.9-1.1 METER #: [id number] INTERNATIONAL NORMALIZED RATIO (INR) REFERENCE RANGES Reference [...] Prothrombin Time Whole Bld P OC Reviewed date:09/13/2024 03:54:56 PM Interpretation: Performing Lab:[address] [phone] Notes/Report: Prothrombin Time Whole Bld POC 36.2 11.1-13.5 sec INR WHOLE BLOOD POC (Not yet reviewed by provider) Interpretation: Performing Lab:[facility], [address] [place] [phone] Notes/Report: PT, INR - Anti [facility]ag Clinic 3.2 0.9-1.1 METER #: [id number] INTERNATIONAL NORMALIZED RATIO (INR) REFERENCE RANGES Reference [...] (Not yet reviewed by provider) Interpretation: Performing Lab:[facility], [address] [place] [phone] Notes/Report: Prothrombin Time Whole Bld POC 38.7 11.1-13.5 sec Reason For Referral No Information Medications Medication SIG (Take, Route, Frequency, Duration) Notes Start Date End Date Status Atorvastatin Calcium 80 MG 1 tablet Oral ly Once a day for 90 days Active Warfarin Sodium 4 MG as directed Orally Once a day Active metFORMIN HCl 500 MG 1 tablet Orally Onc e a day for 30 days 07/25/2024 Active Docusate Sodium Acti ve diazePAM 5 MG 1 tablet Orally ever y 4 hours for anxiety 01/12/2023 Active Gabapentin 100 MG 1 capsule Orally Onc e a day Active FLUoxetine HCl 20 MG 1 capsule Orally On ce a day for 90 days Active Omeprazole 20 MG 1 capsule 30 minutes before morning meal Orally Once a day Active Metoprolol Tartrate 25 MG 1 tablet with food Orally Twice a day for 90 days Active Immunizations Vaccine Route Administration Date Status [...] Problem Status W/U Status Risk Notes Problem 4490956 Former smoker (Z87.891) Active confirmed He is unable to obtain cigarettes. She does not smoke since his stroke. She says she does not want to. Problem 32673360 Fibromyalgia (M79.7) Active confirmed Fibromyalgia lately has been low-grade she lives with a without a great deal difficulty. No medical therapies necessary. Problem DM - Diabetes mellitus (63043027) DM (diabetes mellitus) (E11.9) Active confirmed I have encouraged them to agree to treating the diabetes with an JAZZY inhibitor and metformin Problem Hyperglycemia (34168439) Hyperglycemia (R73.9) Active confirmed Problem 344712611 Gastro-esophagea l reflux disease without esophagitis (K21.9) Active confirmed She will continue on omeprazole and liquid antacid as needed. Problem 67120844 Essential hypertension (I10) Active confirmed Low Her blood pressure was 126/77 and no change in her regimen was necessary. Problem 419831063 Anticoagulation adequate (Z79.01) Active confirmed She has had no bleeding and is compliant with her therapy. Problem CVA - Cerebrovascular accident (004274102) CVA (cerebral vascular accident) (I63.9) Active confirmed She is currently anticoagulated because of the stroke. She has a dense right hemiplegia, but no further neurological symptoms. She is awake and alert and responsive to questions. Her speech is fluent. Problem 511900960 Morbid obesity (E66.01) Active confirmed He discussed her overweight status. We discussed diet and nutrition. We made plans for her to lose weight at a rate of one half of a pound per week. Problem 934604158 Gallstones (K80.20) Active confirmed She remains free of symptoms from her cholelithiasis. Problem Right hemiplegia (473104899) Right hemiplegia (G81.91) Active confirmed There has been no change in the weakness of the right arm and leg. She remains confined to a wheelchair. The weakness in the right arm is dense. Problem 841719996 Type 2 diabetes mellitus without complication, without [...] Provider Diagnosis Jose E Hubbard III, MD [address] [place] [address] [place] [address] 11/16/2023 Jose E Hubbard Essential hypertensi on I10 ; Type 2 diabetes mellitus without complication, without long-term current use of insulin E11.9 ; Fibromyalgia M79.7 ; Gastro-esophageal reflux disease without esophagitis K21.9 ; CVA (cerebral vascular accident) I63.9 ; Anticoagulation adequate Z79.01 and Right hemiplegia G81.91 Jose E Hubbard III, MD [address] [place] [address] [place] [address] 01/25/2024 Jose E Hubbard Essential hypertensi on I10 ; Morbid obesity E66.01 ; Type 2 diabetes mellitus without complication, without long-term current use of insulin E11.9 ; Fibromyalgia M79.7 ; Gastro-esophageal reflux disease without esophagitis K21.9 ; CVA (cerebral vascular accident) I63.9 ; Anticoagulation adequate Z79.01 ; Right hemiplegia G81.91 and Former smoker Z87.891 Jose E Hubbard III, MD [address] [place] [address] [place] [address] 02/16/2024 Jose E Hubbard Essential hypertensi on I10 ; DM (diabetes mellitus) E11.9 ; Fibromyalgia M79.7 ; Gastro-esophageal reflux disease without esophagitis K21.9 ; CVA (cerebral vascular accident) I63.9 ; Anticoagulation adequate Z79.01 ; Right hemiplegia G81.91 ; Former smoker Z87.891 and Obesity (BMI 30-39.9) E66.9 Jose E Hubbard III, MD [address] [place] [address] [place] [address] 07/14/2024 Jose E Hubbard Essential hypertensi on I10 ; CVA (cerebral vascular accident) I63.9 ; Gastro-esophageal reflux disease without esophagitis K21.9 ; Anticoagulation adequate Z79.01 ; Former smoker Z87.891 ; Fibromyalgia M79.7 and Right hemiplegia G81.91 Jose E Hubbard III, MD [address] [place] [address] [place] [address] 10/20/2023 Jose E Hubbard III, MD [address] [place] [address] [place] [address] 11/08/2023 Jose E Hubbard III, MD [address] [place] [address] [place] [address] 12/15/2023 Jose E Hubbard Essential hypertensi on I10 Jose E Hubbard III, MD [address] [place] [address] 12/24/2023 Jose E Hubbard Essential hypertensi on I10 Jose E Hubbard III, MD [address] [place] [address] 03/17/2024 Jose E Hubbard III, MD [address] [place] [address] [place] [address] 07/25/2024 Jose E Hubbard III, MD [address] [place] [address] [place] [address] 07/25/2024 Jose E Hubbard III, MD [address] [place] [address] [place] [address] 09/20/2024 Jose E Hubbard Essential hypertensi on I10 Jose E Hubbard III, MD [address] [place] [address] [place] [address] 09/26/2024 Jose E Hubbard Assessments Encounter Date Diagnosis [...] responsive to questions. Her speech is fluent. 12/15/2023 Essential hypertension (ICD-10 - I10) Her blood pressure at this time is i120/66 and no change in her regimen was necessary. 12/24/2023 Essential hypertension (ICD-10 - I10) Her blood pressure at this time is i120/66 and no change in her regimen was necessary. 09/20/2024 Essential hypertension (ICD-10 - I10) Her [...] Order Date PROFILE, FASTING (COMPREHENSIVE METABOLI C) 11/16/2023 PROFILE, [...] PROFILE, FASTING (COMPREHENSIVE METABOLI C) 01/05/2023 PROFILE, RANDOM (COMPREHENSIVE METABOLIC ) 04/20/2019 PROFILE, RANDOM (COMPREHENSIVE METABOLIC ) 10/23/2021 HEMOGLOBIN A1C (GLYCOHEMOGLOBIN) 023 LIPID PANEL 09/02/2020 LIPID PANEL 04/20/2019 LIPID PANEL 04/15/2022 LIPID PANEL 01/05/2023 LIPID PANEL 01/09/2020 LIPID PANEL 06/03/2020 LIPID PANEL 02/10/2022 LIPID PANEL 10/05/2022 LIPID PANEL 10/13/2018 LIPID PANEL 06/15/2019 LIPID PANEL 07/08/2022 LIPID PANEL 03/05/2020 MICROALBUMIN, RANDOM 01/05/2023 CBC w DIFF 07/08/2022 CBC w DIFF 10/23/2021 CBC w DIFF 04/07/2023 CBC w DIFF 03/05/2020 CBC w DIFF 09/02/2020 CBC w DIFF 04/20/2019 CBC w DIFF 04/15/2022 CBC w DIFF 01/09/2020 CBC w DIFF 06/03/2020 CBC w DIFF 01/05/2023 CBC w DIFF 02/10/2022 CBC w DIFF 10/05/2022 CBC w DIFF 10/13/2018 CBC w DIFF 06/15/2019 CBC w DIFF 11/10/2021 PROTHROMBIN TIME (PT, INR) 04/15/2020 URINE CULTURE [...] Microalbumin, Random 07/14/2024 INR WHOLE BLOOD POC 09/27/2024 Prothrombin Time Whole Bld POC T Spot TB 08/04/2022 US abdomen complete 07/08/2022 Hemoglobin A1c 07/14/2024 Next Appt Details Provider Name:Jose E Maguirene, 10/11/2024 10:00:00 AM, [address] [facility] [address], [place], [address], Provider Name:Jose E Rodriguezrne, 07/17/2025 10:00:00 AM, [address] [place] [address] [address], [place], [address], Insurance Providers Payer Name Payer Address Payer Phone Subscriber Number Group Number Insured Name Patient Relationship to Insured Coverage Start Date Coverage End Date MEDICARE NGS [address] [place] [address] [id number] Malu Garcia Self - patient is the insured [place] [address] [place] [id number] Malu Garcia Self - patient is the insured Medical (General) History Medical History History ICD Code gerd degenerative disc disease cervical spine plantar warts gastritis fibromyalgia right shoulder pain essential hypertension left hemisphere infarction right hemiparasis chronic anticoagulation Tinea unguium B35.1 Plantar wart B07.0 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 Hassan 03/2022 Hospitalization History Reason Date(Month/Year) stroke 07/05
== END 2024-09-27 10:41 | disposition home or self-care (01) ==
LOC: HO.ACS 10:19
PROVIDERS: PCP Internal Medicine Medical Oncology; Visit Provider Internal Medicine Medical Oncology
DX: Z79.01 Long term (current) use of anticoagulants (principal)

== ENCOUNTER → 2024-09-27 10:19 | Outpatient (BNVA) | payer MEDICARE, MEDICAID, SELFPAY | PROVIDERS: PCP Internal Medicine Medical Oncology; Visit Provider Internal Medicine Medical Oncology | DX: I69.30 Unspecified sequelae of cerebral infarction (principal); Z79.01 Long term (current) use of anticoagulants; Z51.81 Encounter for therapeutic drug level monitoring | CPT/HCPCS: 85610; 99211 ==

== ENCOUNTER 2024-10-04 09:21 | Outpatient (AMB) | payer MEDICARE, MEDICAID, SELFPAY ==
[2024-10-04 09:27] LABS: Prothrombin Time Whole Bld POC 38.7 sec (11.1-13.5); ~PT, ~INR - Anti Coag Clinic 3.2 (0.9-1.1)
--- NOTE | 2024-10-04 09:39 | MHC.OFFVISCO ---
Intake Intake Visit Reasons: Anticoagulation Allergies acetaminophen [Percocet] Allergy (Severe, Verified 10/04/24 09:22) ITCHY RASH oxycodone [Percocet] Allergy (Severe, Verified 10/04/24 09:22) Itching Penicillins [PENICILLINS] Allergy (Intermediate, Verified 10/04/24 09:22) itchy rash naproxen [NAPROXEN] Allergy (Unknown, Verified 10/04/24 09:22) STOMACH PAIN Medication List - Last Reconciled 10/04/24 by Anali Louis RN acetaminophen ER mg PO atorvastatin 80 mg PO DAILY bisacodyl 10 mg PO BEDTIME chlorhexidine gluconate 0.12% PO docusate sodium 100 mg PO BEDTIME fluoxetine 20 mg PO DAILY gabapentin 100 mg PO DAILY metformin 500 mg PO DAILY metoprolol tartrate 25 mg PO BID omeprazole 20 mg PO DAILY warfarin 4 mg See Protocol PO DAILY Nursing Note NO CP,SOB,DIET/MED CHANGES,FALLS OR SX OF BLEEDING. DECREASE DOSE SLIGHTLY TODAY THEN RESUME PRESENT DOSING AND FOLLOW-UP IN 2 WEEKS. GOOD UNDERSTANDING OF DOSING INSTR. 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
--- OUTSIDE RECORDS SUMMARY | 2024-10-04 10:41 | XMS_ITS | Clinical Summary ---
Author Organization [employer] Address [address] [facility] [address] [place] [address] Care Team Providers Care Delphi Developer Name Role Phone Unavailable Primary Care Provider [...] patient's age to complete this topic Insurance [facility] MEDICAID STAND ADULT
--- OUTSIDE RECORDS SUMMARY | 2024-10-04 10:41 | XMS_ITS ---
Author Organization Jose E Hubbard III, MD Address [address] [place] [address] [place] [address] Care Team Providers Care Biology Internship Name Role Phone Jose E Hubbard Primary [...] Provider Diagnosis Jose E Hubbard III, MD [address] [place] [address] [place] [phone] 07/25/2024 Jose E Hubbard Plan Of Treatment Medication Medication Name Sig Start Date Stop Date Notes metFORMIN HCl 500 MG 1 tablet Orally Onc e a day for 30 days 07/25/2024 Next Appt Details Provider Name:Jose E Hubbard, 10/11/2024 10:00:00 AM, [address] [place] [address] [address] [place], [place], [phone], Provider Name:Jose E Hubbard, 07/17/2025 10:00:00 AM, [address] [place] [address] [place], [phone], Progress Notes * Malu GARCIADOB:1955 ([age] yo F)Acc No.[id number]:07/25/2024 Patient:?ATTILA Malu :1955???Age:68 Y???Sex:Female Address: [address] [facility], [place] [address] * Refills? Start metFORMIN HCl Tablet, 500 MG, Orally, 30 Tablet, 1 tablet, Once a day, 30 days, Refills=11 * true * Date:? Generated for Michael junior/Kiko/Vonsmitting on:?10/04/2024 10:41 AM EDT
--- OUTSIDE RECORDS SUMMARY | 2024-10-04 10:41 | XMS_ITS ---
Author Organization Jose E Hubbard III, MD Address [address] [place] [address] [place] [address] Care Team Providers Care Golf Cart Attendant Name Role Phone Jose E Hubbard Primary Care Provider [phone] Medications Medication SIG (Take, Route, Frequency, Duration) Notes Start Date End Date Status Atorvastatin Calcium 80 MG 1 tablet Oral ly Once a day for 90 days Active Social History Sex Assigned At : Social History Observation Description Sex Assigned At Female Encounters Encounter Location Date Provider Diagnosis Jose E Hubbard III, MD [address] [place] [address] [place] [address] 09/26/2024 Jose E Hubbard Plan Of Treatment Medication Medication Name Sig Start Date Stop Date Notes Atorvastatin Calcium 80 MG 1 tablet Oral ly Once a day for 90 days Next Appt Details Provider Name:Jose E Hubbard, 10/11/2024 10:00:00 AM, [address] [place] [address] [place], [address], Provider Name:Jose E Hbubard, 07/17/2025 10:00:00 AM, [address] [place] [address] [place], [address], Progress Notes * JOSE MaluDOB:1955 ([age] yo F)Acc No.[id number]:09/26/2024 Patient:Malu GRAY :1955???Age:68 Y???Sex:Female Address:[address] [place] [address] [place] [address] * Refills? Refill Atorvastatin Calcium Tablet, 80 MG, Orally, 90 Tablet, 1 tablet, Once a day, 90 days, Refills=3 * true * Date:? Generated for Michael junior/Kiko/Petra on:?10/04/2024 10:41 AM EDT
--- OUTSIDE RECORDS SUMMARY | 2024-10-04 10:41 | XMS_ITS ---
Author Organization Jose E Hubbard III, MD Address [address] [place] [address] [place] [address] [address] Team Prov[address] Care Court Collections Officer Name Role Phone Jose E Hubbard Primary Care Provider [phone] REASON FOR VISIT refills needed Medications Medication [...] Diagnosis Jose E Hubbard III, MD [address] [place] [address] [place] [address] 09/20/2024 Jose E Hubbard Essential hypertensi on [...] Provider Name:Jose E Hubbard, 10/11/2024 10:00:00 AM, [address] [place] [address] [place], [address], Provider Name:Jose E Hubbard, 07/17/2025 10:00:00 AM, [address] [place] [address] [place], [address], Progress Notes * Malu GARCIADOB:1955 ([age] yo F)Acc No.[id number]:09/20/2024 Patient:Malu GRAY :1955???Age:68 Y???Sex:Female Address:[address] [place] [address], [place] [address] * Refills? Refill FLUoxetine HCl Capsule, 20 MG, Orally, 90, 1 capsule, Once a day, 90 days, Refills=3 Refill Metoprolol Tartrate Tablet, 25 MG, Orally, 180, 1 tablet with food, Twice a day, 90 days, Refills=3 * true * Date:? Generated for Michael junior/Kiko/Vonsmitting on:?10/04/2024 10:41 AM EDT
--- OUTSIDE RECORDS SUMMARY | 2024-10-04 10:41 | XMS_ITS | Clinical Summary ---
Author Organization [facility] Address [address] [place] [address] Care Team Providers Care Technical Document Writer Name Role Phone Unavailable Primary Care Provider [...] Documents on File Type Date Recorded Patient Senior Principal Expl anation Health Care Decision (hx) 07/20/2018 AD ALMA ROSA DIRECTIVE
--- OUTSIDE RECORDS SUMMARY | 2024-10-04 10:41 | XMS_ITS | Patient Health Record ---
Author Organization Jose E Hubbard III, MD Address [address] [place] [address] [address] [place] [address] Care Team Providers Care Veterinary Epidemiologist Name Role Phone Jose E Hubbard Primary Care Provider [phone] Allergies Allergen (clinical drug ingredient) Drug/Non Drug Allergy documented on EMR Reaction Allergy Type Onset Date Status acetaminophen / oxycodone Percocet Unknown Drug Allergy Active miconazole Monistat 3 burning Drug Allergy Activ e Results Component Value Reference Range Notes RBS/Hemocue glucose Reviewed date:02/16/2024 09:42:15 AM Interpretation: Performing Lab: Notes/Report: RBS 108 INR WHOLE BLOOD POC Reviewed date:10/15/2023 08:46:13 PM Interpretation: Performing Lab:[facility], [address] [place] [phone] Notes/Report: PT, INR - [facility] 2.9 0.9-1.1 METER #: [id number] INTERNATIONAL NORMALIZED RATIO (INR) REFERENCE RANGES Reference [...] OC Reviewed date:10/15/2023 08:46:13 PM Interpretation: Performing Lab:[facility], [address] [place] [phone] Notes/Report: Prothrombin Time Whole Bld POC 34.2 11.1-13.5 sec INR WHOLE BLOOD POC Reviewed date:11/06/2023 05:26:31 AM Interpretation: Performing Lab:[facility], [address] [place] [address] Notes/Report: PT, INR - [facility] 2.5 0.9-1.1 METER #: [id number] INTERNATIONAL NORMALIZED RATIO (INR) REFERENCE RANGES Reference [...] OC Reviewed date:11/06/2023 05:26:31 AM Interpretation: Performing Lab:[facility], [address] [place] [phone] Notes/Report: Prothrombin Time Whole Bld POC 30.1 11.1-13.5 sec INR WHOLE BLOOD POC Reviewed date:12/07/2023 06:47:16 AM Interpretation: Performing Lab:[facility], [address] [place] [phone] Notes/Report: PT, INR - [facility] 3.6 0.9-1.1 METER #: [id number] INTERNATIONAL NORMALIZED RATIO (INR) REFERENCE RANGES Reference [...] OC Reviewed date:12/07/2023 06:47:16 AM Interpretation: Performing Lab:[address] [phone] Notes/Report: Prothrombin Time Whole Bld POC 43.1 11.1-13.5 sec INR WHOLE BLOOD POC Reviewed date:12/17/2023 08:58:55 PM Interpretation: Performing Lab:[facility], [address] [place] [address] Notes/Report: PT, INR - [facility] 3.4 0.9-1.1 METER #: [id number] INTERNATIONAL NORMALIZED RATIO (INR) REFERENCE RANGES Reference [...] OC Reviewed date:12/17/2023 08:58:55 PM Interpretation: Performing Lab:[facility], [address] [place] [address] Notes/Report: Prothrombin Time Whole Bld POC 40.6 11.1-13.5 sec INR WHOLE BLOOD POC Reviewed date:01/02/2024 06:34:15 AM Interpretation: Performing Lab:[facility], [address] [place] [phone] Notes/Report: PT, INR - [facility] 3.6 0.9-1.1 METER #: [id number] INTERNATIONAL NORMALIZED RATIO (INR) REFERENCE RANGES Reference [...] OC Reviewed date:01/02/2024 06:34:15 AM Interpretation: Performing Lab:[facility], [address] [place] [phone] Notes/Report: Prothrombin Time Whole Bld POC 42.9 11.1-13.5 sec INR WHOLE BLOOD POC Reviewed date:01/12/2024 11:07:47 AM Interpretation: Performing Lab:[facility], [address] [place] [phone] Notes/Report: PT, INR - [facility] 3.1 0.9-1.1 METER #: [id number] INTERNATIONAL NORMALIZED RATIO (INR) REFERENCE RANGES Reference [...] OC Reviewed date:01/12/2024 11:07:47 AM Interpretation: Performing Lab:[facility], [address] [place] [phone] Notes/Report: Prothrombin Time Whole Bld POC 37.0 11.1-13.5 sec INR WHOLE BLOOD POC Reviewed date:01/25/2024 04:12:11 PM Interpretation: Performing Lab:[facility], [address] [place] [phone] Notes/Report: PT, INR - [facility] 2.2 0.9-1.1 METER #: [id number] INTERNATIONAL NORMALIZED RATIO (INR) REFERENCE RANGES Reference [...] OC Reviewed date:01/25/2024 04:12:11 PM Interpretation: Performing Lab:[facility], [address] [place] [phone] Notes/Report: Prothrombin Time Whole Bld POC 26.6 11.1-13.5 sec Complete Blood Count Auto Di ff Reviewed date:02/09/2024 06:31:48 AM Interpretation: Performing Lab:[facility], [address] [place] [phone] Notes/Report: White Blood Count 9.2 4.8-10.8 X10*3/uL [...] NRBC Abs Auto 0.000 0.0-0.012 X10*3/uL Comprehensive [place]. Panel Fa st Reviewed date:02/09/2024 06:31:49 AM Interpretation: Performing Lab:[facility], [address] [place] [phone] Notes/Report: Sodium 143 135-145 mmol/L Potassium 4.3 3.3-5.1 mmol/L Chloride 112 96-108 mmol/L Carbon Dioxide 24 22-29 mmol/L Anion Gap 11 12-20 Blood Urea Nitrogen 29 9-16 mg/dL Creatinine 0.78 0.5-1.4 mg/dL Estimated Glomerular Filt Rate > 60 NOTE: For -Honduran individuals, multiply the result by 1.210. Chronic [...] Panel Reviewed date:02/09/2024 06:31:49 AM Interpretation: Performing Lab:[facility], [address] [place] [phone] Notes/Report: Triglycerides 75 <150 mg/dL Desirable Triglyceride: [...] POC Reviewed date:02/09/2024 06:31:48 AM Interpretation: Performing Lab:[facility], [address] [place] [phone] Notes/Report: PT, INR - [facility] 3.0 0.9-1.1 METER #: [id number] INTERNATIONAL NORMALIZED RATIO (INR) REFERENCE RANGES Reference [...] OC Reviewed date:02/09/2024 06:31:48 AM Interpretation: Performing Lab:[facility], [address] [place] [phone] Notes/Report: Prothrombin Time Whole Bld POC 36.0 11.1-13.5 sec Hemoglobin A1c Reviewed date:02/09/2024 06:31:48 AM Interpretation: Performing Lab:[facility], [address] [place] [phone] Notes/Report: Hemoglobin A1c % 7.5 <6.0 % [...] average glucose, using the formula of the Q1Y-Oncyxdl Average Glucose study (ADAG), Diabetes Care, Vol.31,#8, Dec. 2007 INR WHOLE BLOOD POC Reviewed date:02/23/2024 11:26:27 AM Interpretation: Performing Lab:[facility], [address] [place] [phone] Notes/Report: PT, INR - [facility] 2.4 0.9-1.1 METER #: [id number] INTERNATIONAL NORMALIZED RATIO (INR) REFERENCE RANGES Reference [...] OC Reviewed date:02/23/2024 11:26:27 AM Interpretation: Performing Lab:[facility], [address] [place] [phone] Notes/Report: Prothrombin Time Whole Bld POC 28.8 11.1-13.5 sec INR WHOLE BLOOD POC Reviewed date:03/14/2024 03:12:08 PM Interpretation: Performing Lab:[facility], [address] [place] [address] Notes/Report: PT, INR - [facility] 2.6 0.9-1.1 METER #: [id number] INTERNATIONAL NORMALIZED RATIO (INR) REFERENCE RANGES Reference [...] OC Reviewed date:03/14/2024 03:12:08 PM Interpretation: Performing Lab:[facility], [address] [place] [phone] Notes/Report: Prothrombin Time Whole Bld POC 30.7 11.1-13.5 sec INR WHOLE BLOOD POC Reviewed date:03/28/2024 02:06:07 PM Interpretation: Performing Lab:[facility], [address] [place] [phone] Notes/Report: PT, INR - [facility] 2.4 0.9-1.1 METER #: [id number] INTERNATIONAL NORMALIZED RATIO (INR) REFERENCE RANGES Reference [...] OC Reviewed date:03/28/2024 02:06:07 PM Interpretation: Performing Lab:[facility], [address] [place] [phone] Notes/Report: Prothrombin Time Whole Bld POC 29.2 11.1-13.5 sec INR WHOLE BLOOD POC Reviewed date:04/04/2024 09:01:19 PM Interpretation: Performing Lab:[facility], [address] [place] [phone] Notes/Report: PT, INR - [facility] 2.4 0.9-1.1 METER #: [id number] INTERNATIONAL NORMALIZED RATIO (INR) REFERENCE RANGES Reference [...] OC Reviewed date:04/04/2024 09:01:19 PM Interpretation: Performing Lab:[facility], [address] [place] [phone] Notes/Report: Prothrombin Time Whole Bld POC 28.9 11.1-13.5 sec INR WHOLE BLOOD POC Reviewed date:04/24/2024 05:20:08 AM Interpretation: Performing Lab:[facility], [address] [place] [phone] Notes/Report: PT, INR - [facility] 2.6 0.9-1.1 METER #: [id number] INTERNATIONAL NORMALIZED RATIO (INR) REFERENCE RANGES Reference [...] OC Reviewed date:04/24/2024 05:20:08 AM Interpretation: Performing Lab:[facility], [address] [place] [phone] Notes/Report: Prothrombin Time Whole Bld POC 31.6 11.1-13.5 sec INR WHOLE BLOOD POC Reviewed date:05/12/2024 04:18:48 PM Interpretation: Performing Lab:[facility], [address] [place] [phone] Notes/Report: PT, INR - [facility] 1.9 0.9-1.1 METER #: [id number] INTERNATIONAL NORMALIZED RATIO (INR) REFERENCE RANGES Reference [...] OC Reviewed date:05/12/2024 04:18:48 PM Interpretation: Performing Lab:[facility], [address] [place] [phone] Notes/Report: Prothrombin Time Whole Bld POC 23.3 11.1-13.5 sec INR WHOLE BLOOD POC Reviewed date:05/29/2024 10:54:12 AM Interpretation: Performing Lab:[facility], [address] [place] [phone] Notes/Report: PT, INR - [facility] 2.4 0.9-1.1 METER #: [id number] INTERNATIONAL NORMALIZED RATIO (INR) REFERENCE RANGES Reference [...] OC Reviewed date:05/29/2024 10:54:12 AM Interpretation: Performing Lab:[facility], [address] [place] [phone] Notes/Report: Prothrombin Time Whole Bld POC 29.1 11.1-13.5 sec INR WHOLE BLOOD POC Reviewed date:06/19/2024 06:09:47 PM Interpretation: Performing Lab:[facility], [address] [place] [phone] Notes/Report: PT, INR - [facility] 2.2 0.9-1.1 METER #: [id number] INTERNATIONAL NORMALIZED RATIO (INR) REFERENCE RANGES Reference [...] OC Reviewed date:06/19/2024 06:09:47 PM Interpretation: Performing Lab:[facility], [address] [place] [phone] Notes/Report: Prothrombin Time Whole Bld POC 26.9 11.1-13.5 sec INR WHOLE BLOOD POC Reviewed date:06/28/2024 09:04:14 AM Interpretation: Performing Lab:[facility], [address] [place] [phone] Notes/Report: PT, INR - [facility] 2.6 0.9-1.1 METER #: [id number] INTERNATIONAL NORMALIZED RATIO (INR) REFERENCE RANGES Reference [...] OC Reviewed date:06/28/2024 09:04:14 AM Interpretation: Performing Lab:[facility], [address] [place] [phone] Notes/Report: Prothrombin Time Whole Bld POC 31.7 11.1-13.5 sec INR WHOLE BLOOD POC Reviewed date:08/01/2024 12:17:16 PM Interpretation: Performing Lab:[facility], [address] [place] [phone] Notes/Report: PT, INR - [facility] 2.0 0.9-1.1 METER #: [id number] INTERNATIONAL NORMALIZED RATIO (INR) REFERENCE RANGES Reference [...] OC Reviewed date:08/01/2024 12:17:17 PM Interpretation: Performing Lab:[facility], [address] [place] [phone] Notes/Report: Prothrombin Time Whole Bld POC 24.5 11.1-13.5 sec INR WHOLE BLOOD POC Reviewed date:08/01/2024 12:17:16 PM Interpretation: Performing Lab:[facility], [address] [place] [phone] Notes/Report: PT, INR - [facility] 1.7 0.9-1.1 METER #: [id number] INTERNATIONAL NORMALIZED RATIO (INR) REFERENCE RANGES Reference [...] OC Reviewed date:08/01/2024 12:17:16 PM Interpretation: Performing Lab:[facility], [address] [place] [phone] Notes/Report: Prothrombin Time Whole Bld POC 20.4 11.1-13.5 sec INR WHOLE BLOOD POC Reviewed date:08/07/2024 10:48:30 AM Interpretation: Performing Lab:[facility], [address] [place] [phone] Notes/Report: PT, INR - [facility] 2.5 0.9-1.1 METER #: [id number] INTERNATIONAL NORMALIZED RATIO (INR) REFERENCE RANGES Reference [...] OC Reviewed date:08/07/2024 10:48:30 AM Interpretation: Performing Lab:[facility], [address] [place] [phone] Notes/Report: Prothrombin Time Whole Bld POC 29.5 11.1-13.5 sec INR WHOLE BLOOD POC Reviewed date:08/24/2024 08:14:12 PM Interpretation: Performing Lab:[facility], [address] [place] [phone] Notes/Report: PT, INR - [facility] 2.8 0.9-1.1 METER #: [id number] INTERNATIONAL NORMALIZED RATIO (INR) REFERENCE RANGES Reference [...] OC Reviewed date:08/24/2024 08:14:12 PM Interpretation: Performing Lab:[facility], [address] [place] [address] Notes/Report: Prothrombin Time Whole Bld POC 33.4 11.1-13.5 sec INR WHOLE BLOOD POC Reviewed date:09/13/2024 03:54:56 PM Interpretation: Performing Lab:[facility], [address] [place] [phone] Notes/Report: PT, INR - [facility] 4.5 0.9-1.1 METER #: [id number] INTERNATIONAL NORMALIZED RATIO (INR) REFERENCE RANGES Reference [...] OC Reviewed date:09/13/2024 03:54:56 PM Interpretation: Performing Lab:[address] [phone] Notes/Report: Prothrombin Time Whole Bld POC 53.6 11.1-13.5 sec INR WHOLE BLOOD POC Reviewed date:09/13/2024 03:54:56 PM Interpretation: Performing Lab:[facility], [address] [place] [phone] Notes/Report: PT, INR - [facility] 3.0 0.9-1.1 METER #: [id number] INTERNATIONAL NORMALIZED RATIO (INR) REFERENCE RANGES Reference [...] OC Reviewed date:09/13/2024 03:54:56 PM Interpretation: Performing Lab:[address] [phone] Notes/Report: Prothrombin Time Whole Bld POC 36.2 11.1-13.5 sec INR WHOLE BLOOD POC Reviewed date:09/27/2024 11:28:44 AM Interpretation: Performing Lab:[facility], [address] [place] [phone] Notes/Report: PT, INR - Anti [facility]ag [facility] 3.2 0.9-1.1 METER #: [id number] INTERNATIONAL NORMALIZED RATIO (INR) REFERENCE RANGES Reference [...] Prothrombin Time Whole Bld P OC Reviewed date:09/27/2024 11:28:44 AM Interpretation: Performing Lab:[facility], [address] [place] [phone] Notes/Report: Prothrombin Time Whole Bld POC 38.7 11.1-13.5 sec Complete Blood Count Auto Di ff (Not yet reviewed by provider) Interpretation: Performing Lab:[facility], [address] [place] [phone] Notes/Report: White Blood Count 7.6 4.8-10.8 X10*3/uL Red Blood Count 4.69 4.20-5.50 X10*6/uL Hemoglobin 12.4 12.0-16.0 g/dl Hematocrit 40.5 37.0-47.0 % Mean Corpuscular Volume 86.4 80.0-98.0 fL Mean Corpuscular Hemoglobin 26.4 27.0-33.0 pg Mean Corpuscular HGB Conc 30.6 31.0-35.0 g/dl Red Cell Distribution Width 15.9 11.0-16.0 % Platelet Count 288 160-400 X10*3/uL Mean Platelet Volume 11.7 9.4-12.3 fL Neutrophils Percent Auto 62.5 45-73 % Imm Gran Pct Auto 0.4 0.0-0.4 % Lymphocytes Percent Auto 28.5 20-40 % Monocytes Percent Auto 7.4 2-11 % Eosinophils Percent Auto 0.8 0-4 % Basophils Percent Auto 0.4 0-2 % NRBC Pct Auto 0.0 0.0-0.2 /100WBC Neutrophils Absolute Auto 4.8 2.0-8.3 x10*3/u L Imm Gran Abs Auto 0.03 0.00-0.03 X10*3/uL Lymphocytes Absolute Auto 2.2 1.2-4.9 X10*3/u L Monocytes Absolute Auto 0.6 0.1-1.2 X10*3/uL Eosinophils Absolute Auto 0.1 0.0-0.4 X10*3/u L Basophils Absolute Auto 0.0 0.0-0.2 X10*3/uL NRBC Abs Auto 0.000 0.0-0.012 X10*3/uL INR WHOLE BLOOD POC (Not yet reviewed by provider) Interpretation: Performing Lab:[facility], [address] [place] [phone] Notes/Report: PT, INR - Anti Coag Clinic 3.2 0.9-1.1 METER #: [id number] INTERNATIONAL NORMALIZED RATIO (INR) REFERENCE RANGES Reference [...] (Not yet reviewed by provider) Interpretation: Performing Lab:[facility], [address] [place] [phone] Notes/Report: Prothrombin Time Whole Bld POC 38.7 [...] Problem Status W/U Status Risk Notes Problem 5772893 Former smoker (Z87.891) Active confirmed He is unable to obtain cigarettes. She does not smoke since his stroke. She says she does not want to. Problem 56787428 Fibromyalgia (M79.7) Active confirmed Fibromyalgia lately has been low-grade she lives with a without a great deal difficulty. No medical therapies necessary. Problem DM - Diabetes mellitus (34122434) DM (diabetes mellitus) (E11.9) Active confirmed I have encouraged them to agree to treating the diabetes with an JAZZY inhibitor and metformin Problem Hyperglycemia (64697769) Hyperglycemia (R73.9) Active confirmed Problem 965964467 Gastro-esophagea l reflux disease without esophagitis (K21.9) Active confirmed She will continue on omeprazole and liquid antacid as needed. Problem 12219212 Essential hypertension (I10) Active confirmed Low Her blood pressure was 126/77 and no change in her regimen was necessary. Problem 574881825 Anticoagulation adequate (Z79.01) Active confirmed She has had no bleeding and is compliant with her therapy. Problem CVA - Cerebrovascular accident (098227997) CVA (cerebral vascular accident) (I63.9) Active confirmed She is currently anticoagulated because of the stroke. She has a dense right hemiplegia, but no further neurological symptoms. She is awake and alert and responsive to questions. Her speech is fluent. Problem 232075575 Morbid obesity (E66.01) Active confirmed He discussed her overweight status. We discussed diet and nutrition. We made plans for her to lose weight at a rate of one half of a pound per week. Problem 183112629 Gallstones (K80.20) Active confirmed She remains free of symptoms from her cholelithiasis. Problem Right hemiplegia (998957856) Right hemiplegia (G81.91) Active confirmed There has been no change in the weakness of the right arm and leg. She remains confined to a wheelchair. The weakness in the right arm is dense. Problem 808389150 Type 2 diabetes mellitus without complication, without [...] Provider Diagnosis Jose E Hubbard III, MD [address] [place] [address] [place] [address] 11/16/2023 Jose E Hubbard Essential hypertensi on I10 ; Type 2 diabetes mellitus without complication, without long-term current use of insulin E11.9 ; Fibromyalgia M79.7 ; Gastro-esophageal reflux disease without esophagitis K21.9 ; CVA (cerebral vascular accident) I63.9 ; Anticoagulation adequate Z79.01 and Right hemiplegia G81.91 Jose E Hubbard III, MD [address] [place] [address] [place] [address] 01/25/2024 Jose E Hubbard Essential hypertensi on I10 ; Morbid obesity E66.01 ; Type 2 diabetes mellitus without complication, without long-term current use of insulin E11.9 ; Fibromyalgia M79.7 ; Gastro-esophageal reflux disease without esophagitis K21.9 ; CVA (cerebral vascular accident) I63.9 ; Anticoagulation adequate Z79.01 ; Right hemiplegia G81.91 and Former smoker Z87.891 Jose E Hubbard III, MD [address] [place] [address] [place] [address] 02/16/2024 Jose E Hubbard Essential hypertensi on I10 ; DM (diabetes mellitus) E11.9 ; Fibromyalgia M79.7 ; Gastro-esophageal reflux disease without esophagitis K21.9 ; CVA (cerebral vascular accident) I63.9 ; Anticoagulation adequate Z79.01 ; Right hemiplegia G81.91 ; Former smoker Z87.891 and Obesity (BMI 30-39.9) E66.9 Jose E Hubbard III, MD [address] [place] [address] 07/14/2024 Jose E Hubbard Essential hypertensi on I10 ; CVA (cerebral vascular accident) I63.9 ; Gastro-esophageal reflux disease without esophagitis K21.9 ; Anticoagulation adequate Z79.01 ; Former smoker Z87.891 ; Fibromyalgia M79.7 and Right hemiplegia G81.91 Jose E Hubbard III, MD [address] [place] [address] 10/20/2023 Jose E Hubbard III, MD [address] [place] [address] 11/08/2023 Jose E Hubbard III, MD [address] [place] [address] 12/15/2023 Jose E Hubbard Essential hypertensi on I10 Jose E Hubbard III, MD [address] [place] [address] 12/24/2023 Jose E Hubbard Essential hypertensi on I10 Jose E Hubbard III, MD [address] [place] [address] [place] [address] 03/17/2024 Jose E Hubbard III, MD [address] [place] [address] [place] [address] 07/25/2024 Jose E Hubbard III, MD [address] [place] [address] [place] [address] 07/25/2024 Jose E Hubbard III, MD [address] [place] [address] 09/20/2024 Jose E Hubbard Essential hypertensi on I10 Jose E Hubbard III, MD [address] [place] [address] 09/26/2024 Jose E Hubbard Assessments Encounter Date [...] Order Date PROFILE, FASTING (COMPREHENSIVE METABOLI C) 01/05/2023 PROFILE, [...] PROFILE, FASTING (COMPREHENSIVE METABOLI C) 04/07/2023 PROFILE, RANDOM (COMPREHENSIVE METABOLIC ) 04/20/2019 PROFILE, RANDOM (COMPREHENSIVE METABOLIC ) 10/23/2021 HEMOGLOBIN A1C (GLYCOHEMOGLOBIN) 023 LIPID PANEL 09/02/2020 LIPID PANEL 04/20/2019 LIPID PANEL 04/15/2022 LIPID PANEL 01/05/2023 LIPID PANEL 01/09/2020 LIPID PANEL 06/03/2020 LIPID PANEL 02/10/2022 LIPID PANEL 10/05/2022 LIPID PANEL 10/13/2018 LIPID PANEL 06/15/2019 LIPID PANEL 07/08/2022 LIPID PANEL 03/05/2020 MICROALBUMIN, RANDOM 01/05/2023 CBC w DIFF 11/10/2021 [...] US ABD 02/10/2022 US BREAST LEFT ([facility] [place]) 03/08/20 17 CBC WITH AUTO DIFF 11/16/2023 CBC WITH AUTO DIFF 07/14/2024 CBC WITH AUTO DIFF 07/13/2023 CBC WITH AUTO DIFF 02/16/2024 Complete Blood Count Auto Diff Urinalysis 06/26/2020 Lipid Panel 02/16/2024 Lipid Panel 11/10/2021 Lipid Panel 04/07/2023 Lipid Panel 11/16/2023 Lipid Panel 07/14/2024 Lipid Panel 07/13/2023 Microalbumin, Random 07/14/2024 INR WHOLE BLOOD POC 10/04/2024 Prothrombin Time Whole Bld POC 5 T Spot TB 08/04/2022 US abdomen complete 07/08/2022 Hemoglobin A1c 07/14/2024 Next Appt Details Provider Name:Jose E Hubbard, 10/11/2024 10:00:00 AM, [address] [place] [address] [address], [place], [id number], Provider Name:Jose E Hubbard, 07/17/2025 10:00:00 AM, [address] [place] [address] [address], [place], [id number], Insurance Providers Payer Name Payer Address Payer Phone Subscriber Number Group Number Insured Name Patient Relationship to Insured Coverage Start Date Coverage End Date MEDICARE NGS [address] [place] [address] [id number] Malu Garcia Self - patient is the insured [place] [address] [place] [id number] Malu Garcia Self - patient is the insured Medical (General) History Medical History History ICD Code gerd degenerative disc disease cervical spine plantar warts gastritis fibromyalgia right shoulder pain essential hypertension left hemisphere infarction right hemiparasis chronic anticoagulation Tinea unguium B35.1 Plantar wart B07.0 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 Chela Davila 03/2022 Hospitalization History Reason Date(Month/Year) stroke 07/05
== END 2024-10-04 09:40 | disposition home or self-care (01) ==
LOC: HO.ACS 09:21
PROVIDERS: PCP Internal Medicine Medical Oncology; Visit Provider Internal Medicine Medical Oncology
DX: Z79.01 Long term (current) use of anticoagulants (principal)

== ENCOUNTER 2024-10-04 09:21 | Outpatient (REF) | payer MEDICARE, MEDICAID, SELFPAY ==
[2024-10-04 10:31] LABS: MANUAL DIFF FLAG NO
[2024-10-04 10:35] LABS: Basophils Percent Auto 0.4 % (0-2); Eosinophils Absolute Auto 0.1 X10*3/uL (0.0-0.4); Eosinophils Percent Auto 0.8 % (0-4); Hematocrit 40.5 % (37.0-47.0); Hemoglobin 12.4 g/dl (12.0-16.0); Imm Gran Abs Auto 0.03 X10*3/uL (0.00-0.03); Imm Gran Pct Auto 0.4 % (0.0-0.4); Lymphocytes Absolute Auto 2.2 X10*3/uL (1.2-4.9); Lymphocytes Percent Auto 28.5 % (20-40); Mean Corpuscular HGB Conc 30.6 g/dl (31.0-35.0); Mean Corpuscular Hemoglobin 26.4 pg (27.0-33.0); Mean Corpuscular Volume 86.4 fL (80.0-98.0); Mean Platelet Volume 11.7 fL (9.4-12.3); Monocytes Absolute Auto 0.6 X10*3/uL (0.1-1.2); Monocytes Percent Auto 7.4 % (2-11); Neutrophils Absolute Auto 4.8 x10*3/uL (2.0-8.3); Neutrophils Percent Auto 62.5 % (45-73); Platelet Count 288 X10*3/uL (160-400); Red Blood Count 4.69 X10*6/uL (4.20-5.50); Red Cell Distribution Width 15.9 % (11.0-16.0); White Blood Count 7.6 X10*3/uL (4.8-10.8)
--- OUTSIDE RECORDS SUMMARY | 2024-10-04 11:01 | XMS_ITS | Clinical Summary ---
Author Organization [employer] Address [address] [place] [address] Care Team Providers Care Veterinary Anatomist Name Role Phone Unavailable Primary Care Provider [...] patient's age to complete this topic Insurance [facility] MEDICAID STAND ADULT
[2024-10-04 11:07] LABS: Estimated Average Glucose 163 mg/dL; Hemoglobin A1C 180.9066 umol/L; Hemoglobin A1c % 7.3 % (<6.0); Total Hemoglobin (HGBA1C) 3228.2837 umol/L
[2024-10-04 11:15] LABS: Alanine Aminotransferase 43 U/L (0-31); Albumin Level 3.9 g/dL (3.5-5.0); Alkaline Phosphatase 147 U/L (39-117); Anion Gap 11 (12-20); Aspartate Amino Transferase 42 U/L (5-31); Bilirubin Total 0.3 mg/dL (0.0-1.0); Blood Urea Nitrogen 27 mg/dL (9-16); Calcium 8.3 mg/dL (8.4-10.2); Carbon Dioxide 27 mmol/L (22-29); Chloride 110 mmol/L (96-108); Cholesterol 78 mg/dL (<200); Estimated Glomerular Filt Rate > 60; Glucose Fasting 127 mg/dL (60-99); HDL Cholesterol 33 mg/dL (>40); LDL Cholesterol Calculated 33 mg/dL (<100); Potassium 4.2 mmol/L (3.3-5.1); Sodium 144 mmol/L (135-145); Triglycerides 61 mg/dL (<150)
[2024-10-04 11:32] LABS: Creatinine Urine 132.65 mg/dL; Microalbum/Creatinine Ratio Ur 9.8 ug/mg cr (<30)
== END 2024-10-04 09:22 | disposition home or self-care (01) ==
LOC: HO.LAB 09:21
PROVIDERS: Absent Provider Internal Medicine Medical Oncology; PCP Internal Medicine Medical Oncology; Visit Provider Internal Medicine Medical Oncology
DX: I10 Essential (primary) hypertension (principal); Z86.73 Personal history of transient ischemic attack (TIA), and cerebral infarction without residual deficits; Z79.01 Long term (current) use of anticoagulants; Z51.81 Encounter for therapeutic drug level monitoring
CPT/HCPCS: 36415; 80053; 80061; 82043; 82570; 83036; 85025; 85610; 99211

== ENCOUNTER 2024-10-18 10:07 | Outpatient (AMB) | payer MEDICARE, MEDICAID, SELFPAY ==
[2024-10-18 10:40] LABS: Prothrombin Time Whole Bld POC 42.2 sec (11.1-13.5); ~PT, ~INR - Anti Coag Clinic 3.5 (0.9-1.1)
--- OUTSIDE RECORDS SUMMARY | 2024-10-18 10:44 | XMS_ITS | Patient Health Record ---
Author Organization [facility] Address [address] [place] [address] Care Team Providers Care Sizing Machine Tender Name Role Phone Jose E Hubbard MD Primary Care Provider UnavailKhadar Payne Unavailable [phone] Allergies Allergen (clinical drug ingredient) Drug/Non Drug Allergy documented on EMR Reaction Allergy Type Onset Date Status Feldine (uncoded) blurry vision Allergy Active acetaminophen / oxycodone Percocet itchy Drug Allergy Active aspirin GI upset Drug Allergy Active Reason For Referral No Information Medications Medication SIG (Take, Route, Frequency, Duration) Notes Start Date End Date Status Estradiol 1 mg once daily Acti ve Tylenol 325 MG 1 tablet as needed O rally every 6 hrs for 12/28/2011 Active Cyclobenzaprine HCl 5 mg once daily Active Cyclobenzaprine HCl 5 mg once daily Active Tylenol 325 MG 1 tablet as needed O rally every 6 hrs for 12/28/2011 Active Estradiol 1 mg once daily Acti ve Vitamin D3 400 units once daily Active Omeprazole 20 MG take 1 capsule by [facility] twice a day 30 MINUTES PRIOR TO BREAKFAST AND SUPPER Oral for 30 Active Vitamin D3 400 units once daily Active Social History Tobacco use other than smoking: Question Answer Notes Are you an other tobacco user? No Problems Problem Type SNOMED Code ICD Code Onset Dates Problem Status W/U Status Risk Notes Problem Arthralgia (35754150) Arthralgia (719.40) Active confirmed Problem Disorder of joint of ankle and/or foot (214667153) Arthritis - Degenerative (719.97) Active confirmed Problem Hammer toe (880374433) Hammer toe (735.4) Active confirmed Problem Onychomycosis (776343327) Onychomycosis (110.1) Active confirmed Problem Pain in limb (79760017) Pain in Limb (729.5) Active confirmed Problem Tenosynovitis (20109867) Tenosynovitis (727.06) Active confirmed Problem Foot ulcer (65471704) Ulcer of Other Part of Foot (707.15) Active confirmed Plan Of Treatment Pending Test Test Name Order Date X ray : Foot, left 3V 12/28/2011 86392- Debride <25 sq cm 08/17/2013 Insurance Providers Payer Name Payer Address Payer Phone Subscriber Number Group Number Insured Name Patient Relationship to Insured Coverage Start Date Coverage End Date [facility] [address] [place] [address] [id number] GAYLA AIKEN Self - patient is the insured Medical (General) History Medical History History ICD Code fibromyalgia Reflux Surgical History Surgery Date(Month/Year) foot surgery 2008 hand/wrist 2006
--- NOTE | 2024-10-18 10:55 | MHC.OFFVISCO ---
Intake Intake Visit Reasons: Anticoagulation Allergies acetaminophen [Percocet] Allergy (Severe, Verified 10/18/24 10:34) ITCHY RASH oxycodone [Percocet] Allergy (Severe, Verified 10/18/24 10:34) Itching Penicillins [PENICILLINS] Allergy (Intermediate, Verified 10/18/24 10:34) itchy rash naproxen [NAPROXEN] Allergy (Unknown, Verified 10/18/24 10:34) STOMACH PAIN Medication List - Last Reconciled 10/18/24 by Anali Louis RN acetaminophen ER mg PO atorvastatin 80 mg PO DAILY bisacodyl 10 mg PO BEDTIME chlorhexidine gluconate 0.12% PO docusate sodium 100 mg PO BEDTIME fluoxetine 20 mg PO DAILY gabapentin 100 mg PO DAILY metformin 500 mg PO DAILY metoprolol tartrate 25 mg PO BID omeprazole 20 mg PO DAILY warfarin 4 mg See Protocol PO DAILY Nursing Note RECENT INR ELEVATIONS LIKELY DUETO ADDITION OF METFORMIN 1 MONTH AGO. WILL HOLD WARFARIN TODAY AND DECREASE WEEKLY DOSE SLIGHTLY AND FOLLOW-UP IN 2 WEEKS. NO CP,SOB OR SX OF BLEEDING. GOOD UNDETSTYANDING OF DOSING INSTR. Anti-Coag Initial Assessment Social Hx Patient Tobacco Use Status: Never used Tobacco alcohol intake: never Alcohol intake frequency: does not drink Coding Level of Care Code Est Patient Level 1 Diagnoses Current use of anticoagulant therapy Z79.01 Assessment & Plan Assessment & Plan (1) Current use of anticoagulant therapy: Code(s): Z79.01 - longterm (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
== END 2024-10-18 10:58 | disposition home or self-care (01) ==
LOC: HO.ACS 10:07
PROVIDERS: PCP Internal Medicine Medical Oncology; Visit Provider Internal Medicine Medical Oncology
DX: Z79.01 Long term (current) use of anticoagulants (principal)

== ENCOUNTER → 2024-10-18 10:07 | Outpatient (BNVA) | payer MEDICARE, MEDICAID, SELFPAY | PROVIDERS: PCP Internal Medicine Medical Oncology; Visit Provider Internal Medicine Medical Oncology | DX: I69.30 Unspecified sequelae of cerebral infarction (principal); Z79.01 Long term (current) use of anticoagulants; Z51.81 Encounter for therapeutic drug level monitoring | CPT/HCPCS: 85610; 99211 ==

== ENCOUNTER 2024-11-01 10:13 | Outpatient (AMB) | payer MEDICARE, MEDICAID, SELFPAY ==
[2024-11-01 10:26] LABS: Prothrombin Time Whole Bld POC 27.6 sec (11.1-13.5); ~PT, ~INR - Anti Coag Clinic 2.3 (0.9-1.1)
--- NOTE | 2024-11-01 10:35 | MHC.OFFVISCO ---
Intake Intake Visit Reasons: Anticoagulation Allergies acetaminophen (Percocet) Allergy (Severe, Verified 11/01/24 10:19) ITCHY RASH oxycodone (Percocet) Allergy (Severe, Verified 11/01/24 10:19) Itching Penicillins (PENICILLINS) Allergy (Intermediate, Verified 11/01/24 10:19) itchy rash naproxen (NAPROXEN) Allergy (Unknown, Verified 11/01/24 10:19) STOMACH PAIN Medication List - Last Reconciled 11/01/24 by Anali Louis RN acetaminophen ER mg PO atorvastatin 80 mg PO DAILY bisacodyl 10 mg PO BEDTIME chlorhexidine gluconate 0.12% PO docusate sodium 100 mg PO BEDTIME fluoxetine 20 mg PO DAILY gabapentin 100 mg PO DAILY metformin 500 mg PO DAILY metoprolol tartrate 25 mg PO BID omeprazole 20 mg PO DAILY warfarin 4 mg See Protocol PO DAILY Nursing Note NO CP,SOB,DIET/MED CHANGES,FALLS OR SX OF BLEEDING. CONTINUE PRESENT DOSE AND FOLLOW-UP IN 3 WEEKS. GOOD UNDERSTANDING VERB.BY SON Anti-Coag Initial Assessment Social Hx Patient Tobacco Use Status: Never used Tobacco alcohol intake: never Alcohol intake frequency: does not drink Coding Level of Care Code Est Patient Level 1 Diagnoses Current use of anticoagulant therapy Z79.01 Assessment & Plan Assessment & Plan (1) Current use of anticoagulant therapy: Code(s): Z79.01 - detention (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
--- OUTSIDE RECORDS SUMMARY | 2024-11-01 11:33 | XMS_ITS | Patient Health Record ---
Author Organization [facility] Address [address] [place] [address] Care Team Providers Care Stadium Attendant Name Role Phone Jose E Hubbard MD Primary Care Provider Unavailab Khadar Arboleda Unavailable [phone] Allergies Allergen (clinical drug ingredient) Drug/Non Drug Allergy documented on EMR Reaction Allergy Type Onset Date Status Feldine (uncoded) blurry vision Allergy Active acetaminophen / oxycodone Percocet itchy Drug Allergy Active aspirin aspirin GI upset Drug Allergy Active Reason [...] Omeprazole 20 MG take 1 capsule by [facility] twice a day 30 MINUTES PRIOR TO BREAKFAST AND SUPPER Oral for 30 Active Vitamin D3 400 units once daily Active Social History Tobacco use other than smoking: Question Answer Notes Are you an other tobacco user? No Problems Problem Type SNOMED Code ICD Code Onset Dates Problem Status W/U Status Risk Notes Problem Arthralgia (67315343) Arthralgia (719.40) Active confirmed Problem Disorder of joint of ankle and/or foot (874653077) Arthritis - Degenerative (719.97) Active confirmed Problem Hammer toe (064999996) Hammer toe (735.4) Active confirmed Problem Onychomycosis (698446722) Onychomycosis (110.1) Active confirmed Problem Pain in limb (02666528) Pain in Limb (729.5) Active confirmed Problem Tenosynovitis (21966323) Tenosynovitis (727.06) Active confirmed Problem Foot ulcer (24988694) Ulcer of Other Part of Foot (707.15) Active confirmed Plan Of Treatment Pending Test Test Name Order Date X ray : Foot, left 3V 12/28/2011 26404- Debride <25 sq cm 08/17/2013 Insurance Providers Payer Name Payer Address Payer Phone Subscriber Number Group Number Insured Name Patient Relationship to Insured Coverage Start Date Coverage End Date [facility] [address] [place] [address] [id number] GAYLA AIKEN Self - patient is the insured Medical (General) History Medical History History ICD Code fibromyalgia Reflux Surgical History Surgery Date(Month/Year) foot surgery 2008 hand/wrist 2006
== END 2024-11-01 10:38 | disposition home or self-care (01) ==
LOC: HO.ACS 10:13
PROVIDERS: PCP Internal Medicine Medical Oncology; Visit Provider Internal Medicine Medical Oncology
DX: Z79.01 Long term (current) use of anticoagulants (principal)

== ENCOUNTER → 2024-11-01 10:13 | Outpatient (BNVA) | payer MEDICARE, MEDICAID, SELFPAY | PROVIDERS: PCP Internal Medicine Medical Oncology; Visit Provider Internal Medicine Medical Oncology | DX: I69.30 Unspecified sequelae of cerebral infarction (principal); Z79.01 Long term (current) use of anticoagulants; Z51.81 Encounter for therapeutic drug level monitoring | CPT/HCPCS: 85610; 99211 ==

== ENCOUNTER 2024-11-22 10:26 | Outpatient (AMB) | payer MEDICARE, MEDICAID, SELFPAY ==
--- OUTSIDE RECORDS SUMMARY | 2024-10-30 09:30 | XMS_ITS ---
Author Organization Jose E Hubbard III, MD Address [address] [place] [address] [address] [place] [address] Care Team Providers Care Shoe Lacer Name Role Phone Jose E Hubbard Primary [...] Problem Status W/U Status Risk Notes Problem [id number] Acute abdominal pain (R10.9) Active confirmed Pain is mild and has been present for only 24 hours. She is able to eat and drink. She has had no nausea vomiting or diarrhea. If she worsens she'll return to the emergency room. I began an antibiotic. Encounters Encounter Location Date Provider Diagnosis Jose E Hubbard III, MD [address] [place] [address] [place] [address] 10/30/2024 Jose E Hubbard Essential hypertensi on [...] Sabra son: OV Provider Name:Jose E Hubbard, 12/06/2024 10:00:00 AM, [address] [place] [address] [address], [place], [address], Provider Name:Jose E Hubbard, 07/17/2025 10:00:00 AM, [address] [place] [address] [address], [place], [address], Progress Notes * Elmer GARCIA:1955 ([age] yo F)Acc No.[id number]:10/30/2024 Patient: Malu BOJORQUEZ Provider: Una Hubbard MD :1955 A ge:69 Y S ex:Female Date:10/30/2024 Address[facility] [id number] Subjective: * Chief Complaints: * A bdominal [...] of provider rendering services: { ...} [address] [facility] [address] [facility] [address] L ocation of patient: mac rodriguezess listed [...] History: * Surgical History: N egative colonoscopy, [facility], Dr. York 03/2022 * Hospitalization/Major Diagno [...] E x-cigarette smoker S he lives in [place]. She was born in [place]. She has been since 1997 and [...] 10/30/2024 Generated for Michael junior/Kiko/Eugenieitting on: 0 11/22/2024 11:15 AM EDT History and Physical Notes * HPI (History of Present Illness) Category Sub-Category Detail Notes Telehealth Location of [facility] rendering services:: {...} [address] [place] [address] Drive [address] [place] [address] Location of patient:: address listed in demographics [...]
--- NOTE | 2024-11-22 10:31 | MHC.OFFVISCO ---
Intake Intake Visit Reasons: Anticoagulation Allergies acetaminophen (Percocet) Allergy (Severe, Verified 11/22/24 10:26) ITCHY RASH oxycodone (Percocet) Allergy (Severe, Verified 11/22/24 10:26) Itching Penicillins (PENICILLINS) Allergy (Intermediate, Verified 11/22/24 10:26) itchy rash naproxen (NAPROXEN) Allergy (Unknown, Verified 11/22/24 10:26) STOMACH PAIN Medication List - Last Reconciled 11/22/24 by Ana Maria Mccullough RN acetaminophen ER mg PO atorvastatin 80 mg PO DAILY bisacodyl 10 mg PO BEDTIME chlorhexidine gluconate 0.12% PO docusate sodium 100 mg PO BEDTIME fluoxetine 20 mg PO DAILY gabapentin 100 mg PO DAILY metformin 500 mg PO DAILY metoprolol tartrate 25 mg PO BID omeprazole 20 mg PO DAILY warfarin 4 mg See Protocol PO DAILY Nursing Note INR: 2.0- in therapeutic range of 2-3 Medications and supplements reviewed no changes No changes in health, diet, medications, or supplements, Denies any signs and symptoms of bleeding or bruising or clotting. Bleeding, bruising, clotting discussed Nutritional guidance given - no greens for 2 days, eat a red today Dose: 4,mg x 2. 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
[2024-11-22 10:33] LABS: Prothrombin Time Whole Bld POC 24.0 sec (11.1-13.5); ~PT, ~INR - Anti Coag Clinic 2.0 (0.9-1.1)
--- OUTSIDE RECORDS SUMMARY | 2024-11-22 11:16 | XMS_ITS | Patient Health Record ---
Author Organization [facility] Address [address] [place] [address] Care Team Providers Care Websphere Administrator Name Role Phone Jose E Hubbard MD Primary Care Provider UnavailKhadar Payne Unavailable [phone] Allergies Allergen (clinical drug ingredient) Drug/Non Drug [...] tablet as needed O rally every 6 hrs; Duration: 12/28/2011 Active Cyclobenzaprine HCl 5 mg once daily Active Cyclobenzaprine HCl 5 mg once daily Active Tylenol 325 MG 1 tablet as needed O rally every 6 hrs; Duration: 12/28/2011 Active Estradiol 1 mg once daily Acti ve Vitamin D3 400 units once daily Active Omeprazole 20 MG take 1 capsule by [facility] twice a day 30 MINUTES PRIOR TO BREAKFAST AND SUPPER Oral; Duration: 30 Active Vitamin D3 400 units once daily Active Social History Tobacco use other than smoking: Question Answer Notes Are you an other tobacco user? No Problems Problem Type SNOMED Code ICD Code Onset Dates Problem Status W/U Status Risk Notes Problem Arthralgia (68603768) Arthralgia (719.40) Active confirmed Problem Disorder of joint of ankle and/or foot (432742368) Arthritis - Degenerative (719.97) Active confirmed Problem Hammer toe (170958300) Hammer toe (735.4) Active confirmed Problem Onychomycosis (440528510) Onychomycosis (110.1) Active confirmed Problem Pain in limb (39988629) Pain in Limb (729.5) Active confirmed Problem Tenosynovitis (98875216) Tenosynovitis (727.06) Active confirmed Problem Foot ulcer (74322626) Ulcer of Other Part of Foot (707.15) Active confirmed Plan Of Treatment Pending Test Test Name Order Date X ray : Foot, left 3V 12/28/2011 21271- Debride <25 sq cm 08/17/2013 Insurance Providers Payer Name Payer Address Payer Phone Subscriber Number Group Number Insured Name Patient Relationship to Insured Coverage Start Date Coverage End Date [facility] [address] [place] [address] [id number] GAYLA AIKEN Self - patient is the insured Medical (General) History Medical History History ICD Code fibromyalgia Reflux Surgical History Surgery Date(Month/Year) foot surgery 2008 hand/wrist 2007
--- OUTSIDE RECORDS SUMMARY | 2024-11-22 11:16 | XMS_ITS | Clinical Summary ---
Author Organization [facility] Address [address] [place] [address] Care Team Providers Care Fuels Sales Representative Name Role Phone Unavailable Primary Care Provider [...] Vaccines (1 of 2) 10/27/2005 COVID-19 Vaccine (1 - 2023-2 5 season) 2024 Influenza Vaccine (#1) 2025 RSV Immunization Adult Patie nts (1 [...] Documents on File Type Date Recorded Patient Bridge Opener Expl anation Health Care Decision (hx) 07/20/2018 AD ALMA ROSA DIRECTIVE
--- OUTSIDE RECORDS SUMMARY | 2024-11-22 11:16 | XMS_ITS | Clinical Summary ---
Author Organization [employer] Address [address] [place] [address] Care Team Providers Care Athletic Coach Name Role Phone Unavailable Primary Care [...] 5 season) 2024 08/21/2020 Influenza Vaccine (#1) 2025 , 03/11/2017, 03/11/2016 Tobacco Screening 03/28/2025 03/28/2024 [...] patient's age to complete this topic Insurance [facility] MEDICAID STAND ADULT
== END 2024-11-22 10:47 | disposition home or self-care (01) ==
LOC: HO.ACS 10:26
PROVIDERS: PCP Internal Medicine Medical Oncology; Visit Provider Internal Medicine Medical Oncology
DX: Z79.01 Long term (current) use of anticoagulants (principal)

== ENCOUNTER → 2024-11-22 10:26 | Outpatient (BNVA) | payer MEDICARE, MEDICAID, SELFPAY | PROVIDERS: PCP Internal Medicine Medical Oncology; Visit Provider Internal Medicine Medical Oncology | DX: I69.30 Unspecified sequelae of cerebral infarction (principal); Z79.01 Long term (current) use of anticoagulants; Z51.81 Encounter for therapeutic drug level monitoring | CPT/HCPCS: 85610; 99211 ==

== ENCOUNTER 2024-11-22 22:38 | Emergency (ER) | payer MEDICARE, MEDICAID, SELFPAY ==
[2024-11-22 22:49] VITALS: BP 129/82; BP 132/72; PULSE 60; PULSE 66; RESP 18; TEMP 36.9; O2SAT 96; O2SAT 97; BMI 31.6
--- OUTSIDE RECORDS SUMMARY | 2024-11-22 22:58 | XMS_ITS | Clinical Summary ---
Author Organization [facility] Address [address] [place] [address] Care Team Providers Care Seismic Prospecting Observer Helper Name Role Phone Unavailable Primary Care [...] Documents on File Type Date Recorded Patient Feed Crusher Operator Expl anation Health Care Decision (hx) 07/20/2018 AD ALMA ROSA DIRECTIVE
--- OUTSIDE RECORDS SUMMARY | 2024-11-22 22:58 | XMS_ITS | Clinical Summary ---
Author Organization [employer] Address [address] [facility] [address] [place] [address] Care Team Providers Care Clinic Assistant Name Role Phone Unavailable Primary Care Provider [...] patient's age to complete this topic Insurance [facility] MEDICAID STAND ADULT
--- NOTE | 2024-11-22 23:00 | ECG_ITS ---
Test Reason : ABD PAIN Blood Pressure : */* mmHG Vent. Rate : 68 BPM Atrial Rate : 68 BPM P-R Int : 166 ms QRS Dur : 72 ms QT Int : 426 ms P-R-T Axes : 40 -8 -33 degrees QTcB Int : 452 ms Normal sinus rhythm Nonspecific ST and T wave abnormality Abnormal ECG When compared with ECG of 05-Jul-2018 14:33, Questionable change in QRS axis ST now depressed in Anterior leads Nonspecific T wave abnormality now evident in Inferior leads Inverted T waves have replaced nonspecific T wave abnormality in Anterior leads Referred By: Cecy Bhandari Electronically Signed By: Bharath Brower
--- NOTE | 2024-11-22 23:06 | ED.ABDPAIN ---
HPI - Abdominal Pain General Chief Complaint: Abdominal Pain Stated Complaint: abdominal pain x5 hours. hx left sided paresis Source: patient and family Mode of arrival: ambulatory Limitations: no limitations History of Present Illness ED Provider: Dr. Cecy Bhandari HPI narrative: patient comes to the emergency room accompanied by family. Patient is poor historian, answers yes no questions but does not explain much. According to the family, today a proximally 5 hours ago, patient started complaining of burning sensation in the abdomen. Patient is currently being treated for GERD, takes her medication daily. the patient had 1 episode of vomiting 2 days ago, no further vomiting or any diarrhea. No fever chills, no hematuria or dysuria. No chest pain. Patient states that the pain is constant, burning, nonradiating Related Data Home Medications ?Medication ?Instructions ?Recorded ?Confirmed atorvastatin 80 mg tablet 80 mg PO DAILY 11/20/20 08/21/24 fluoxetine 20 mg capsule 20 mg PO DAILY 11/20/20 08/21/24 gabapentin 100 mg capsule 100 mg PO DAILY 11/20/20 08/21/24 metoprolol tartrate 25 mg tablet 25 mg PO BID 11/20/20 08/21/24 omeprazole 20 mg capsule,delayed 20 mg PO DAILY 11/20/20 08/21/24 release bisacodyl 5 mg tablet,delayed 10 mg PO BEDTIME 04/24/22 08/21/24 release acetaminophen 650 mg mg PO 04/18/24 08/21/24 tablet,extended release chlorhexidine gluconate 0.12 % PO 04/18/24 08/21/24 mouthwash metformin 500 mg tablet 500 mg PO DAILY 08/01/24 08/21/24 Previous Rx's ?Medication ?Instructions ?Recorded warfarin 4 mg tablet 4 mg PO DAILY #90 tabs 03/04/20 docusate sodium 100 mg capsule 100 mg PO BEDTIME #90 caps 11/01/24 Allergies Allergy/AdvReac Type Severity Reaction Status Date / Time acetaminophen (Percocet) Allergy Severe ITCHY RASH Verified 11/22/24 22:49 oxycodone (Percocet) Allergy Severe Itching Verified 11/22/24 22:49 Penicillins (PENICILLINS) Allergy Intermediate itchy rash Verified 11/22/24 22:49 naproxen (NAPROXEN) Allergy Unknown STOMACH Verified 11/22/24 22:49 PAIN Review of Systems Review of Systems Constitutional : No Weight loss, No Fever, No Chills, No Night Sweats, No Fatigue, No Malaise ENT/Mouth : No Hearing loss, No Ear Pain, No Nasal Congestion, No Sinus Pain, No Hoarseness, No sore throat, No Rhinorrhea, No Swallowing Difficulty Eyes: No Eye Pain, No Swelling, No Redness, No Foreign Body, No Discharge, No Vision Changes Cardiovascular : No Chest Pain, No SOB, No Dyspnea on Exertion, No Orthopnea, No Edema, No Palpitations Respiratory : No Cough, No Sputum, No Wheezing, No Smoke Exposure, No Dyspnea Gastrointestinal : No Nausea, patient had 1 episode of vomiting 2 days ago, no diarrhea, complaining of burning epigastric pain nonradiating. Genitourinary : no irregular bleeding, No Dysuria, No Urinary Frequency, No Hematuria, No Urinary Incontinence, No Urgency, No Flank Pain, No Urinary Flow Changes, No Hesitancy Musculoskeletal : No joint pain, No Myalgias, No Joint Swelling Skin : No Skin Lesions, No rash Neuro : No Weakness, No Numbness, No Paresthesias, No Loss of Consciousness, No Dizziness, No Headache Psych : No Anxiety/Panic, No Depression, No SI/HI/AH/VH, No Social Issues, Heme/Lymph: No Bruising, No Bleeding,No Lymphadenopathy Endocrine : No Polyuria, No Polydipsia, No Temperature Intolerance PMFSH Past Medical History Medical History HTN (hypertension) Fibromyalgia Cervical disc disease Plantar warts Gastritis GERD (gastroesophageal reflux disease) Cerebrovascular accident, embolic Surgical History Hx of colonoscopy Family History Family History Brother HTN (hypertension) Diabetes Son Diabetes Sister Diabetes HTN (hypertension) Social History Social History Household Members: Family Alcohol intake: never Patient Tobacco Use Status: Never used Tobacco Smoked in Last 30 Days: No Use of substances other than those prescribed or required for medical reasons: No Advance Directives: Yes Advance Directives on File: Yes Advance Directives Date on File: 04/08/22 Physical Exam ED Vital Signs: Vital Signs - 24 hr 11/22/24 22:49 Temperature 98.4 F Pulse Rate 66 Respiratory Rate 18 Blood Pressure 129/82 Pulse Oximetry 97 Oxygen Delivery Method Room Air BMI result Body Mass Index 31.6 Const Other: Appearance: Alert. No acute distress, well-appearing Eyes: Pupils equal, round and reactive to light. ENT: Pharynx normal. Neck: Normal inspection. Neck supple. No lymph nodes noted. No crepitus CVS: Normal heart rate and rhythm. Pulses normal. Normal S1 and S2 Respiratory: No respiratory distress. Breath sounds normal. No Wheezing. No rales Abdomen: Soft, does not seem to be particularly tender in any of the quadrants, negative pain at McBurney's point, negative Blair's sign, no rebound, no guarding Skin: Skin warm and dry. Normal skin color. Normal skin turgor. Extremities: No lower extremity edema. No Lacerations. 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 Patient being given viscous lidocaine and Maalox for symptomatic treatment. Medical Decision Making Medical Decision Making [facility] Narrative: After the GI cocktail consisting of Maalox and viscous lidocaine, patient feeling much better. My interpretation of labs: No significant abnormality in patient's hematology and chemistry, normal LFTs my interpretation of EKG: Normal sinus rhythm, heart rate 68, no ST segment depression or elevation, nonspecificT-wave inversion in V3, QTC 452 patient's abdominal exam is very benign, SBO, acute cholecystitis or pancreatitis is not suspected Differential Diagnosis Differential Diagnoses: The differential diagnosis associated with the presentation includes ( GERD, gastritis, anxiety) Lab Data [facility] Lab Attestation statement: I reviewed the patient's lab results. 11/22/24 23:09 11/22/24 23:09 Labs: Lab Results 11/22/24 Range/Units 23:09 WBC 9.2 (4.8-10.8) X10*3/uL RBC 4.15 L (4.20-5.50) X10*6/uL Hgb 11.3 L (12.0-16.0) g/dl Hct 34.9 L (37.0-47.0) % MCV 84.1 (80.0-98.0) fL MCH 27.2 (27.0-33.0) pg MCHC 32.4 (31.0-35.0) g/dl RDW 16.1 H (11.0-16.0) % Plt Count 257 (160-400) X10*3/uL MPV 10.8 (9.4-12.3) fL Immature Gran % (Auto) 0.4 (0.0-0.4) % Neut % (Auto) 55.5 (45-73) % Lymph % (Auto) 35.6 (20-40) % [place] % (Auto) 7.1 (2-11) % Eos % (Auto) 1.1 (0-4) % Baso % (Auto) 0.3 (0-2) % Lymph # (Auto) 3.3 (1.2-4.9) X10*3/uL [place] # (Auto) 0.7 (0.1-1.2) X10*3/uL Eos # (Auto) 0.1 (0.0-0.4) X10*3/uL Baso # (Auto) 0.0 (0.0-0.2) X10*3/uL Abs Immat Gran (auto) 0.04 H (0.00-0.03) X10*3/uL Absolute Neuts (auto) 5.1 (2.0-8.3) x10*3/uL Absolute Nucleated RBC 0.000 (0.0-0.012) X10*3/uL Nucleated RBC % (auto) 0.0 (0.0-0.2) /100WBC Sodium 142 (135-145) mmol/L Potassium 3.8 (3.3-5.1) mmol/L Chloride 110 H (96-108) mmol/L Carbon Dioxide 26 (22-29) mmol/L Anion Gap 10 L (12-20) BUN 23 H (9-16) mg/dL Creatinine 0.67 (0.5-1.4) mg/dL Estim Creat Clear Calc 82.8 Estimated GFR > 60 Random Glucose 136 H (60-115) mg/dL Calcium 8.6 (8.4-10.2) mg/dL Total Bilirubin 0.2 (0.0-1.0) mg/dL Direct Bilirubin < 0.2 (0.0-0.5) mg/dL AST 32 H (5-31) U/L ALT 20 (0-31) U/L Alkaline Phosphatase 146 H (39-117) U/L Troponin I High Sens < 2.7 (<3.5-17.0) ng/L Total Protein 6.5 (6.5-8.0) g/dL Albumin 3.6 (3.5-5.0) g/dL Medications Administered Discontinued Medications Generic Name Dose Route Start Last Admin Trade Name Pasquale PRN Reason Stop Dose Admin Al Hydroxide/Mg Hydroxide 30 ml 11/22/24 23:01 11/22/24 23:21 Magnesium Hydrox/Alum Hydrox 30 Ml Oral.Susp PO 11/22/24 23:02 30 ml ONCE ONE Administration Lidocaine HCl 15 ml 11/22/24 23:01 11/22/24 23:21 Lidocaine Hcl Viscous 2 % 15 Ml Solution MUCOUS MEM 11/22/24 23:02 15 ml ONCE ONE Administration Discharge Plan Discharge Clinical Impression: Chronic GERD Patient Disposition: Home, Self-Care Instructions: Diet for Stomach Ulcers and Gastritis (ED) Additional Instructions: Please follow-up with your primary care physician tomorrow. If you have any worsening or new symptoms, please return to the emergency room or call 911 Prescriptions: No Action docusate sodium 100 mg capsule 100 mg PO BEDTIME Qty: 90 2RF metoprolol tartrate 25 mg tablet 25 mg PO BID fluoxetine 20 mg capsule 20 mg PO DAILY gabapentin 100 mg capsule 100 mg PO DAILY omeprazole 20 mg capsule,delayed release(DR/EC) 20 mg PO DAILY atorvastatin 80 mg tablet 80 mg PO DAILY warfarin 4 mg tablet 4 mg PO DAILY Qty: 90 0RF Protocol: Dose Management Condition: Wednesday (Week One) Dose/Route: 2 mg Instruction: 0.5 x 4 mg tablets Condition: Wednesday Dose/Route: 4 mg Instruction: 1 x 4 mg tablet Condition: Wednesday Dose/Route: 2 mg Instruction: 0.5 x 4 mg tablets Condition: Wednesday Dose/Route: 2 mg Instruction: 0.5 x 4 mg tablets Condition: Dose/Route: 4 mg Instruction: 1 x 4 mg tablet Condition: Wednesday Dose/Route: 2 mg Instruction: 0.5 x 4 mg tablets Condition: Wednesday Dose/Route: 2 mg Instruction: 0.5 x 4 mg tablets Condition: Wednesday (Week Two) Dose/Route: 2 mg Instruction: 0.5 x 4 mg tablets Condition: Wednesday Dose/Route: 4 mg Instruction: 1 x 4 mg tablet Condition: Wednesday Dose/Route: 2 mg Instruction: 0.5 x 4 mg tablets Condition: Wednesday Dose/Route: 2 mg Instruction: 0.5 x 4 mg tablets Condition: Dose/Route: 4 mg Instruction: 1 x 4 mg tablet Condition: Wednesday Dose/Route: 2 mg Instruction: 0.5 x 4 mg tablets Condition: Wednesday Dose/Route: 2 mg Instruction: 0.5 x 4 mg tablets Protocol Text: Adjustment Start Date: Wednesday11/22/24 INR Value: 2.0 INR Date: 11/22/24 Recheck Date: 12/06/24 Additional Instructions: cont reg dosing no greens for 2-3 days eat reds to raise Rx Instructions: 4mg mwf/ 2mg x4days bisacodyl 5 mg tablet,delayed release (DR/EC) 10 mg PO BEDTIME acetaminophen 650 mg tablet extended release PO chlorhexidine gluconate 0.12 % mouthwash PO metformin 500 mg tablet 500 mg PO DAILY Print Language: Serbian
[2024-11-22 23:16] LABS: MANUAL DIFF FLAG NO
[2024-11-22 23:17] LABS: Hematocrit 34.9 % (37.0-47.0); Hemoglobin 11.3 g/dl (12.0-16.0); Imm Gran Abs Auto 0.04 X10*3/uL (0.00-0.03); Imm Gran Pct Auto 0.4 % (0.0-0.4); Lymphocytes Absolute Auto 3.3 X10*3/uL (1.2-4.9); Mean Corpuscular HGB Conc 32.4 g/dl (31.0-35.0); Mean Corpuscular Hemoglobin 27.2 pg (27.0-33.0); Mean Corpuscular Volume 84.1 fL (80.0-98.0); NRBC Abs Auto 0.000 X10*3/uL (0.0-0.012); NRBC Pct Auto 0.0 /100WBC (0.0-0.2); Platelet Count 257 X10*3/uL (160-400); Red Blood Count 4.15 X10*6/uL (4.20-5.50); White Blood Count 9.2 X10*3/uL (4.8-10.8)
[2024-11-22] MEDS: Magnesium Hydrox/Alum Hydrox 30 ML ORAL.SUSP PO (23:21)
[2024-11-22] MEDS: Lidocaine HCl Viscous 2 % 15 ML SOLUTION MUCOUS MEM (23:21)
[2024-11-22 23:34] LABS: Alanine Aminotransferase 20 U/L (0-31); Albumin Level 3.6 g/dL (3.5-5.0); Alkaline Phosphatase 146 U/L (39-117); Anion Gap 10 (12-20); Aspartate Amino Transferase 32 U/L (5-31); Blood Urea Nitrogen 23 mg/dL (9-16); Calcium 8.6 mg/dL (8.4-10.2); Carbon Dioxide 26 mmol/L (22-29); Chloride 110 mmol/L (96-108); Creatinine Clr Calc Pharmacy 82.8; Estimated Glomerular Filt Rate > 60; Potassium 3.8 mmol/L (3.3-5.1); Sodium 142 mmol/L (135-145); Total Protein 6.5 g/dL (6.5-8.0)
[2024-11-22 23:42] LABS: Troponin-I High Sensitivity < 2.7 ng/L (<3.5-17.0)
[2024-11-23] LABS: INTERNATIONAL NORM RATIO 1.8 (0.9-1.1); Prothrombin Time 20.6 SEC (10.9-12.4)
[2024-11-23 00:28] VITALS: BP 133/68; PULSE 69; RESP 16; TEMP 36.8; O2SAT 96
== END 2024-11-23 00:28 | disposition home or self-care (01) ==
PROVIDERS: Emergency Provider Emergency Medicine
DX: K21.9 Gastro-esophageal reflux disease without esophagitis (principal); R10.2 Pelvic and perineal pain; R94.31 Abnormal electrocardiogram [ECG] [EKG]; R11.10 Vomiting, unspecified; Z79.899 Other long term (current) drug therapy
CPT/HCPCS: 36415; 80048; 80076; 84484; 85025; 85610; 93005; 99283; 99284

== ENCOUNTER → 2024-11-22 23:00 | Outpatient (BNV) | payer MEDICARE, MEDICAID, SELFPAY | PROVIDERS: Emergency Provider Emergency Medicine; Visit Provider Internal Medicine Cardiovascular Disease | DX: R10.9 Unspecified abdominal pain (principal) | CPT/HCPCS: 93010 ==

== ENCOUNTER 2024-12-06 10:52 | Outpatient (AMB) | payer MEDICARE, MEDICAID, SELFPAY ==
--- OUTSIDE RECORDS SUMMARY | 2024-10-30 09:30 | XMS_ITS ---
Author Organization Jose E Hubbard III, MD Address [address] [place] [address] [address] [place] [address] Care Team Providers Care Wood Setter Name Role Phone Jose E Hubbard Primary Care Provider [phone] Allergies Allergen (clinical drug ingredient) Drug/Non [...] Problem Status W/U Status Risk Notes Problem [id number] Acute abdominal pain (R10.9) Active confirmed Pain is mild and has been present for only 24 hours. She is able to eat and drink. She has had no nausea vomiting or diarrhea. If she worsens she'll return to the emergency room. I began an antibiotic. Encounters Encounter Location Date Provider Diagnosis Jose E Hubbard III, MD [address] [place] [address] [place] [address] 10/30/2024 Jose E Hubbard Essential hypertensi on [...] Sabra son: OV Provider Name:Jose E Hubbard, 07/17/2025 10:00:00 AM, [address] [place] [address], [address], [address], Progress Notes * Malu GARCIADOB:1955 ([age] yo F)Acc No.[id number]:10/30/2024 Patient: Florecita SANTOSH Malu Provider: Una Hubbard MD :1955 A ge:69 Y S ex:Female Date:10/30/2024 Address:[address] [place], [place] [address] Subjective: * Chief Complaints: * A bdominal [...] ocation of provider rendering services: { ...} [address] [place] [address] [place] [address] L ocation of patient: mac rodriguezess listed [...] History: * Surgical History: N egative colonoscopy, [facility], Dr. York 03/2022 * Hospitalization/Major Diagno [...] E x-cigarette smoker S he lives in [place]. She was born in [place]. She has been since 1997 and [...] MD Date: 0 10/30/2024 Generated for Michael junior/Kiko/Vonsmitting on: 0 12/06/2024 11:51 AM EDT History and Physical Notes * HPI (History of Present Illness) Category Sub-Category Detail Notes Telehealth Location of [facility] rendering services:: {...} [address] [facility] [address] [place] [address] Location of patient:: address listed in demographics for today's visit Patient identification confirmed using:: Name, Telehealth method:: Telephone only. Faustina ent not visible to care provider. Consent:: Patient verbally c onsented to treatment, Patient verbally consented to billing insurance [facility], Patient informed of any privacy concerns related to method of visit Total time spent with patient (mins): 15
[2024-12-06 11:22] LABS: Prothrombin Time Whole Bld POC 36.7 sec (11.1-13.5); ~PT, ~INR - Anti Coag Clinic 3.1 (0.9-1.1)
--- NOTE | 2024-12-06 11:31 | MHC.OFFVISCO ---
Intake Intake Visit Reasons: Anticoagulation Allergies acetaminophen (Percocet) Allergy (Severe, Verified 12/06/24 11:17) ITCHY RASH oxycodone (Percocet) Allergy (Severe, Verified 12/06/24 11:17) Itching Penicillins (PENICILLINS) Allergy (Intermediate, Verified 12/06/24 11:17) itchy rash naproxen (NAPROXEN) Allergy (Unknown, Verified 12/06/24 11:17) STOMACH PAIN Medication List - Last Reconciled 12/06/24 by Anali Louis RN acetaminophen ER mg PO atorvastatin 80 mg PO DAILY bisacodyl 10 mg PO BEDTIME chlorhexidine gluconate 0.12% PO docusate sodium 100 mg PO BEDTIME fluoxetine 20 mg PO DAILY gabapentin 100 mg PO DAILY metformin 500 mg PO DAILY metoprolol tartrate 25 mg PO BID omeprazole 20 mg PO DAILY warfarin 4 mg See Protocol PO DAILY Nursing Note NO CP,SOB,DIET/MED CHANGES,FALLS OR SX OF BLEEDING. 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
--- OUTSIDE RECORDS SUMMARY | 2024-12-06 11:51 | XMS_ITS | Clinical Summary ---
Author Organization [employer] Address [address] [facility] [address] [place] [address] Care Team Providers Care Profiler Operator Name Role Phone Unavailable Primary Care [...] patient's age to complete this topic Insurance [facility] MEDICAID STAND ADULT
--- OUTSIDE RECORDS SUMMARY | 2024-12-06 11:51 | XMS_ITS | Patient Health Record ---
Author Organization [facility] Address [address] [place] [address] Care Team Providers Care Online Education Manager Name Role Phone Jose E Hubbard MD Primary Care Provider UnavailKhadar Payne Unavailable [phone] Allergies Allergen (clinical drug ingredient) Drug/Non Drug [...] Omeprazole 20 MG take [facility] capsule [facility] day 30 MINUTES PRIOR TO BREAKFAST AND SUPPER Oral; Duration: 30 Active Vitamin D3 400 units once daily Active Social History Tobacco use other than smoking: Question Answer Notes Are you an other tobacco user? No Problems Problem Type SNOMED Code ICD Code Onset Dates Problem Status W/U Status Risk Notes Problem Arthralgia (00185644) Arthralgia (719.40) Active confirmed Problem Disorder of joint of ankle and/or foot (371749554) Arthritis - Degenerative (719.97) Active confirmed Problem Hammer toe (504620609) Hammer toe (735.4) Active confirmed Problem Onychomycosis (435659447) Onychomycosis (110.1) Active confirmed Problem Pain in limb (47958756) Pain in Limb (729.5) Active confirmed Problem Tenosynovitis (35916585) Tenosynovitis (727.06) Active confirmed Problem Foot ulcer (42147072) Ulcer of Other Part of Foot (707.15) Active confirmed Plan Of Treatment Pending Test Test Name Order Date X ray : Foot, left 3V 12/28/2011 93582- Debride <25 sq cm 08/17/2013 Insurance Providers Payer Name Payer Address Payer Phone Subscriber Number Group Number Insured Name Patient Relationship to Insured Coverage Start Date Coverage End Date [facility] [address] [place] [address] [id number] GAYLA AIKEN Self - patient is the insured Medical (General) History Medical History History ICD Code fibromyalgia Reflux Surgical History Surgery Date(Month/Year) foot surgery 2008 hand/wrist 2007
--- OUTSIDE RECORDS SUMMARY | 2024-12-06 11:51 | XMS_ITS | Clinical Summary ---
Author Organization [facility] Address [address] [place] [address] Care Team Providers Care Certified Bench Jeweler Technician Name Role Phone Unavailable Primary Care Provider [...] Vaccine (1 - 2023-2 5 season) 2024 Depression Screening 05/17/2024 Influenza Vaccine (#1) 2025 RSV Immunization Adult [...] Documents on File Type Date Recorded Patient Hospitality Aide Expl anation Health Care Decision (hx) 07/20/2018 AD ALMA ROSA DIRECTIVE
== END 2024-12-06 11:34 | disposition home or self-care (01) ==
LOC: HO.ACS 10:52
PROVIDERS: Visit Provider Internal Medicine Medical Oncology
DX: Z79.01 Long term (current) use of anticoagulants (principal)

== ENCOUNTER → 2024-12-06 10:52 | Outpatient (BNVA) | payer MEDICARE, MEDICAID, SELFPAY | PROVIDERS: Visit Provider Internal Medicine Medical Oncology | DX: I69.30 Unspecified sequelae of cerebral infarction (principal); Z79.01 Long term (current) use of anticoagulants; Z51.81 Encounter for therapeutic drug level monitoring | CPT/HCPCS: 85610; 99211 ==

== ENCOUNTER 2024-12-20 10:41 | Outpatient (AMB) | payer MEDICARE, MEDICAID, SELFPAY ==
--- OUTSIDE RECORDS SUMMARY | 2024-10-30 09:30 | XMS_ITS ---
Author Organization Jose E Hubbard III, MD Address [address] [place] [address] [address] [place] [address] Care Team Providers Care Sole Stainer Name Role Phone Jose E Hubbard Primary [...] Problem Status W/U Status Risk Notes Problem [id number] Acute abdominal pain (R10.9) Active confirmed Pain is mild and has been present for only 24 hours. She is able to eat and drink. She has had no nausea vomiting or diarrhea. If she worsens she'll return to the emergency room. I began an antibiotic. Encounters Encounter Location Date Provider Diagnosis Jose E Hubbard III, MD [address] [place] [address] [place] [address] 10/30/2024 Jose E Hubbard Essential hypertensi on [...] Provider Name:Jose E Hubbard, 03/12/2025 10:15:00 AM, [address] [place] [address] [address], [place], [address], Provider Name:Jose E Hubbard, 07/17/2025 10:00:00 AM, [address] [place] [address] [address], [place], [address], Progress Notes * Elmer GARCIA:1955 ([age] yo F)Acc No.[id number]:10/30/2024 Patient: Malu BOJORQUEZ Provider: Una Hubbard MD :1955 A ge:69 Y S ex:Female Date:10/30/2024 [facility] [id number] Subjective: * Chief Complaints: * A bdominal [...] of provider rendering services: { ...} [address] [facility] [address] [facility] [address] L ocation of patient: mac rodriguezess listed [...] History: * Surgical History: N egative colonoscopy, [facility], Dr. York 03/2022 * Hospitalization/Major Diagno [...] E x-cigarette smoker S he lives in [place]. She was born in [place]. She has been since 1997 and [...] 10/30/2024 Generated for Michael junior/Kiko/Eugenieitting on: 0 12/20/2024 11:23 AM EDT History and Physical Notes * HPI (History of Present Illness) Category Sub-Category Detail Notes Telehealth Location of [facility] rendering services:: {...} [address] [place] [address] Drive [address] [place] [address] Location of patient:: address listed in demographics [...]
--- NOTE | 2024-12-20 10:48 | MHC.OFFVISCO ---
Intake Intake Visit Reasons: Anticoagulation Allergies acetaminophen (Percocet) Allergy (Severe, Verified 12/20/24 10:42) ITCHY RASH oxycodone (Percocet) Allergy (Severe, Verified 12/20/24 10:42) Itching Penicillins (PENICILLINS) Allergy (Intermediate, Verified 12/06/24 11:17) itchy rash naproxen (NAPROXEN) Allergy (Unknown, Verified 12/20/24 10:42) STOMACH PAIN Medication List - Last Reconciled 12/20/24 by Ana Maria Mccullough RN acetaminophen ER mg PO atorvastatin 80 mg PO DAILY bisacodyl 10 mg PO BEDTIME chlorhexidine gluconate 0.12% PO docusate sodium 100 mg PO BEDTIME fluoxetine 20 mg PO DAILY gabapentin 100 mg PO DAILY metformin 500 mg PO DAILY metoprolol tartrate 25 mg PO BID omeprazole 20 mg PO DAILY warfarin 4 mg See Protocol PO DAILY Nursing Note INR 3.3-? out of therapeutic range of 2-3 Medications and supplements reviewed Patient status: pt to amb in w/c with brother sylvie Medications or supplements: no changes Diet: same Denies any signs and symptoms of bleeding or clotting or unusual bruising Bleeding, bruising, clotting discussed Nutritional guidance given: food list reviewed, eat greens to lower sylvie states pt has grapes every night, enc to reduce Dose: 2 today and tomm then cont reg 2mg x 5, 4mg x 2 F/U INR Date : 2 weeks?? Patient and brother verbalizing understanding of instructions given. Anti-Coag Initial Assessment Social Hx Patient Tobacco Use Status: Never used Tobacco alcohol intake: never Alcohol intake frequency: does not drink Coding Level of Care Code Est Patient Level 1 Diagnoses Current use of anticoagulant therapy Z79.01 Assessment & Plan Assessment & Plan (1) Current use of anticoagulant therapy: Code(s): Z79.01 - [facility] (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
[2024-12-20 10:49] LABS: Prothrombin Time Whole Bld POC 39.7 sec (11.1-13.5); ~PT, ~INR - Anti Coag Clinic 3.3 (0.9-1.1)
--- OUTSIDE RECORDS SUMMARY | 2024-12-20 11:23 | XMS_ITS | Clinical Summary ---
Author Organization [facility] Address [address] [place] [address] Care Team Providers Care Behavioral Health Care Coordinator Name Role Phone Unavailable Primary Care Provider [...] Documents on File Type Date Recorded Patient Hand Shaker Expl anation Health Care Decision (hx) 07/20/2018 AD ALMA ROSA DIRECTIVE
--- OUTSIDE RECORDS SUMMARY | 2024-12-20 11:23 | XMS_ITS | Clinical Summary ---
Author Organization [employer] Address [address] [facility] 7[address] [place] [address] Care Team Providers Care Information Services Tech Name Role Phone Unavailable Primary Care Provider [...] age to complete this topic Insurance [facility] MEDICAID STAND ADULT
--- OUTSIDE RECORDS SUMMARY | 2024-12-20 11:23 | XMS_ITS | Patient Health Record ---
Author Organization [facility] Address [address] [place] [address] Care Team Providers Care Psychologist Engineering Name Role Phone Jose E Hubbard MD Primary Care Provider UnavailKhadar Payne Unavailable [phone] Allergies Allergen (clinical drug ingredient) Drug/Non Drug [...] Status W/U Status Risk Notes Problem Arthralgia (44341809) Arthralgia (719.40) Active confirmed Problem Disorder of joint of ankle and/or foot (004296015) Arthritis - Degenerative (719.97) Active confirmed Problem Hammer toe (807156251) Hammer toe (735.4) Active confirmed Problem Onychomycosis (207707801) Onychomycosis (110.1) Active confirmed Problem Pain in limb (05119306) Pain in Limb (729.5) Active confirmed Problem Tenosynovitis (50539158) Tenosynovitis (727.06) Active confirmed Problem Foot ulcer (97885146) Ulcer of Other Part of Foot (707.15) Active confirmed Plan Of Treatment Pending Test Test Name Order Date X ray : Foot, left 3V 12/28/2011 64575- Debride <25 sq cm 08/17/2013 Insurance Providers Payer Name Payer Address Payer Phone Subscriber Number Group Number Insured Name Patient Relationship to Insured Coverage Start Date Coverage End Date [facility] [address] [place] [address] [id number] GAYLA AIKEN Self - patient is the insured Medical (General) History Medical History History ICD Code fibromyalgia Reflux Surgical History Surgery Date(Month/Year) foot surgery 2008 hand/wrist 2007
== END 2024-12-20 10:58 | disposition home or self-care (01) ==
LOC: HO.ACS 10:41
PROVIDERS: PCP Internal Medicine Medical Oncology; Visit Provider Internal Medicine Medical Oncology
DX: Z79.01 Long term (current) use of anticoagulants (principal)

== ENCOUNTER → 2024-12-20 10:41 | Outpatient (BNVA) | payer MEDICARE, MEDICAID, SELFPAY | PROVIDERS: PCP Internal Medicine Medical Oncology; Visit Provider Internal Medicine Medical Oncology | DX: Z51.81 Encounter for therapeutic drug level monitoring (principal); Z79.01 Long term (current) use of anticoagulants | CPT/HCPCS: 85610; 99211 ==

== ENCOUNTER 2025-01-03 10:09 | Outpatient (AMB) | payer MEDICARE, MEDICAID, SELFPAY ==
--- OUTSIDE RECORDS SUMMARY | 2024-10-30 09:30 | XMS_ITS ---
Author Organization Jose E Hubbard III, MD Address [address] [place] [address] [address] [place] [address] Care Team Providers Care Manager Investigations Name Role Phone Jose E Hubabrd Primary Care Provider Allergies Allergen (clinical drug [...] Problem Status W/U Status Risk Notes Problem [id number] Acute abdominal pain (R10.9) Active confirmed Pain is mild and has been present for only 24 hours. She is able to eat and drink. She has had no nausea vomiting or diarrhea. If she worsens she'll return to the emergency room. I began an antibiotic. Encounters Encounter Location Date Provider Diagnosis Jose E Hubbard III, MD [address] [place] [address] [place] [address] 10/30/2024 Jose E Hubbard Essential hypertensi on [...] Provider Name:Jose E Hubbard, 03/12/2025 10:15:00 AM, [address] [place] [address] [address], [place], [address], Provider Name:Jose E Hubbard, 07/17/2025 10:00:00 AM, [address] [place] [address] [address], [place], [address], Progress Notes * Elmer GARCIA:1955 ([age] yo F)Acc No.[id number]:10/30/2024 Patient: Malu BOJORQUEZ Provider: Una Hubbard MD :1955 A ge:69 Y S ex:Female Date:10/30/2024 [facility] [id number] Subjective: * Chief Complaints: * A bdominal [...] of provider rendering services: { ...} [address] [facility] [address] [facility] [address] L ocation of patient: mac rodriguezess listed [...] History: * Surgical History: N egative colonoscopy, [facility], Dr. York 03/2022 * Hospitalization/Major [...] E x-cigarette smoker S he lives in [place]. She was born in [place]. She has been since 1997 and [...] 10/30/2024 Generated for Michael junior/Kiko/Eugenieitting on: 0 01/03/2025 11:16 AM EDT History and Physical Notes * HPI (History of Present Illness) Category Sub-Category Detail Notes Telehealth Location of [facility] rendering services:: {...} [address] [place] [address] Drive [address] [place] [address] Location of patient:: address listed in demographics [...]
--- NOTE | 2025-01-03 10:29 | MHC.OFFVISCO ---
Intake Intake Visit Reasons: Anticoagulation Allergies acetaminophen (Percocet) Allergy (Severe, Verified 01/03/25 10:25) ITCHY RASH oxycodone (Percocet) Allergy (Severe, Verified 01/03/25 10:25) Itching Penicillins (PENICILLINS) Allergy (Intermediate, Verified 01/03/25 10:25) itchy rash naproxen (NAPROXEN) Allergy (Unknown, Verified 01/03/25 10:25) STOMACH PAIN Medication List - Last Reconciled 01/03/25 by Ana Maria Mccullough RN acetaminophen ER mg PO atorvastatin 80 mg PO DAILY bisacodyl 10 mg PO BEDTIME chlorhexidine gluconate 0.12% PO docusate sodium 100 mg PO BEDTIME fluoxetine 20 mg PO DAILY gabapentin 100 mg PO DAILY metformin 500 mg PO DAILY metoprolol tartrate 25 mg PO BID omeprazole 20 mg PO DAILY warfarin 4 mg See Protocol PO DAILY Nursing Note INR: 3.0- in therapeutic range of 2-3 Medications and supplements reviewed- no changes No changes in health, diet, medications, or supplements, Denies any signs and symptoms of bleeding or bruising or clotting. Bleeding, bruising, clotting discussed Nutritional guidance given - eat a green today Dose: 4mg x 2, 2mg x 5 F/U INR: 2 weeks Patient and brother verbalizes understanding of instructions given pt to acs in w/c Anti-Coag Initial Assessment Social Hx Patient Tobacco Use Status: Never used Tobacco alcohol intake: never Alcohol intake frequency: does not drink Coding Level of Care Code Est Patient Level 1 Diagnoses Current use of anticoagulant therapy Z79.01 Results AMB INR Fingerstick AMB INR Fingerstick 3.0 Last Edit by Ana Maria Mccullough RN on 01/03/25 10:31 interface delay Assessment & Plan Assessment & Plan (1) Current use of anticoagulant therapy: Code(s): Z79.01 - senior living (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
[2025-01-03 10:31] LABS: Prothrombin Time Whole Bld POC 35.8 sec (11.1-13.5); ~PT, ~INR - Anti Coag Clinic 3.0 (0.9-1.1)
--- OUTSIDE RECORDS SUMMARY | 2025-01-03 11:16 | XMS_ITS | Patient Health Record ---
Author Organization [facility] Address [address] [place] [address] Care Team Providers Care Loss Prevention Consultant Name Role Phone Jose E Hubbard MD Primary Care Provider UnavailKhadar Payne Unavailable [phone] Allergies Allergen (clinical drug ingredient) Drug/Non Drug [...] Omeprazole 20 MG take 1 capsule by [facility] twice a day 30 MINUTES PRIOR TO BREAKFAST AND SUPPER Oral; Duration: 30 Active Vitamin D3 400 units once daily Active Social History Tobacco use other than smoking: Question Answer Notes Are you an other tobacco user? No Problems Problem Type SNOMED Code ICD Code Onset Dates Problem Status W/U Status Risk Notes Problem Arthralgia (92351853) Arthralgia (719.40) Active confirmed Problem Disorder of joint of ankle and/or foot (840042604) Arthritis - Degenerative (719.97) Active confirmed Problem Hammer toe (939179197) Hammer toe (735.4) Active confirmed Problem Onychomycosis (636524441) Onychomycosis (110.1) Active confirmed Problem Pain in limb (77118476) Pain in Limb (729.5) Active confirmed Problem Tenosynovitis (51394545) Tenosynovitis (727.06) Active confirmed Problem Foot ulcer (75016031) Ulcer of Other Part of Foot (707.15) Active confirmed Plan Of Treatment Pending Test Test Name Order Date X ray : Foot, left 3V 12/28/2011 39923- Debride <25 sq cm 08/17/2013 Insurance Providers Payer Name Payer Address Payer Phone Subscriber Number Group Number Insured Name Patient Relationship to Insured Coverage Start Date Coverage End Date [facility] [address] [place] [address] [id number] GAYLA AIKEN Self - patient is the insured Medical (General) History Medical History History ICD Code fibromyalgia Reflux Surgical History Surgery Date(Month/Year) foot surgery 2008 hand/wrist 2007
--- OUTSIDE RECORDS SUMMARY | 2025-01-03 11:17 | XMS_ITS | Clinical Summary ---
Author Organization [facility] Address [address] [place] [address] Care Team Providers Care Websphere Process Server Developer Name Role Phone Unavailable Primary Care [...] Documents on File Type Date Recorded Patient Gas Combustion Engineer Expl anation Health Care Decision (hx) 07/20/2018 AD ALMA ROSA DIRECTIVE
--- OUTSIDE RECORDS SUMMARY | 2025-01-03 11:17 | XMS_ITS | Clinical Summary ---
Author Organization [employer] Address [address] [place] [address] Care Team Providers Care [place] Strip Inspector Name Role Phone Unavailable Primary Care Provider [...] patient's age to complete this topic Insurance [facility] MEDICAID STAND ADULT
== END 2025-01-03 10:44 | disposition home or self-care (01) ==
LOC: HO.ACS 10:09
PROVIDERS: PCP Internal Medicine Medical Oncology; Visit Provider Internal Medicine Medical Oncology
DX: Z79.01 Long term (current) use of anticoagulants (principal)

== ENCOUNTER → 2025-01-03 10:09 | Outpatient (BNVA) | payer MEDICARE, MEDICAID, SELFPAY | PROVIDERS: PCP Internal Medicine Medical Oncology; Visit Provider Internal Medicine Medical Oncology | DX: Z51.81 Encounter for therapeutic drug level monitoring (principal); Z79.01 Long term (current) use of anticoagulants | CPT/HCPCS: 85610; 99211 ==

== ENCOUNTER 2025-01-17 10:10 | Outpatient (AMB) | payer MEDICARE, MEDICAID, SELFPAY ==
--- OUTSIDE RECORDS SUMMARY | 2024-09-26 05:54 | XMS_ITS ---
Author Organization Jose E Hubbard III, MD Address [address] [place] [address] [place] [address] Care Team Providers Care Human Resources Compensation Analyst Name Role Phone Jose E Hubbard Primary Care Provider Medications Medication SIG (Take, Route, Frequency, Duration) Notes Start Date End Date Status Atorvastatin Calcium 80 MG 1 tablet Oral ly Once a day for 90 days Active Social History Sex Assigned At : Social History Observation Description Sex Assigned At Female Encounters Encounter Location Date Provider Diagnosis Jose E Hubbard III, MD [address] [place] [address] [place] [address] 09/26/2024 Jose E Hubbard Plan Of Treatment Medication Medication Name Sig Start Date Stop Date Notes Atorvastatin Calcium 80 MG 1 tablet Oral ly Once a day for 90 days Next Appt Details Provider Name:Jose E Hubbard, 03/12/2025 10:15:00 AM, [address] [place] [address] [place], [address], Provider Name:Jose E Hubbard, 07/17/2025 10:00:00 AM, [address] [place] [address] [place], [address], Progress Notes * Malu GARCIADOB:1955 ([age] yo F)Acc No.[id number]:09/26/2024 Patient: Malu BOJORQUEZ :1955 A ge:68 Y S ex:Female Address:[address] [facility] [place] [address] * Refills Refill Atorvastatin Calcium Tablet, 80 MG, Orally, 90 Tablet, 1 tablet, Once a day, 90 days, Refills=3 * true * Date: Generated for Michael junior/Kiko/Eugenieitting on: 0 01/17/2025 11:37 AM EDT
--- OUTSIDE RECORDS SUMMARY | 2024-10-11 06:00 | XMS_ITS ---
Author Organization Jose E Hubbard III, MD Address [address] [place] [address] [address] [place] [address] Care Team Providers Care Section 8 Property Manager Name Role Phone Jose E Hubbard Primary [...] Provider Diagnosis Jose E Hubbard III, MD [address] [place] [address] [place] [address] 10/11/2024 Jose E Hubbard Essential hypertensi on [...] Provider Name:Jose E Hubbard, 03/12/2025 10:15:00 AM, [address] [place] [address] [address], [place], [address], Provider Name:Jose E Hubbard, 07/17/2025 10:00:00 AM, [address] [place] [address] [address], [place], [address], Progress Notes * Malu GARCIADOB:1955 ([age] yo F)Acc No.[id number]:10/11/2024 Progress Notes Patient: Malu BOJORQUEZ Provider: Una Hubbard MD :1955 A ge:68 Y S ex:Female Date:10/11/2024 Address:[address] [place], [place] [address]PRASAD Wenceslao [id number] Subjective: * Chief Complaints: * H ypertensionHistory [...] History: * Surgical History: N egative colonoscopy, [facility], Dr. York 03/2022 * Hospitalization/Major Diagno stic [...] E x-cigarette smoker S he lives in [place]. She was born in [place]. She has been since 1997 and [...] 10/11/2024 Generated for Printi ng/Faanjumg/eTransmitting on: 0 01/17/2025 11:37 AM EDT History and Physical Notes * [...]
--- OUTSIDE RECORDS SUMMARY | 2024-10-30 09:30 | XMS_ITS ---
Author Organization Jose E Hubbard III, MD Address [address] [place] [address] [address] [place] [address] Care Team Providers Care Pain Management Nurse Name Role Phone Jose E Hubbard Primary Care Provider [phone] Allergies Allergen (clinical drug ingredient) Drug/Non Drug [...] Problem Status W/U Status Risk Notes Problem [id number] Acute abdominal pain (R10.9) Active confirmed Pain is mild and has been present for only 24 hours. She is able to eat and drink. She has had no nausea vomiting or diarrhea. If she worsens she'll return to the emergency room. I began an antibiotic. Encounters Encounter Location Date Provider Diagnosis Jose E Hubbard III, MD [address] [place] [address] [place] [address] 10/30/2024 Jose E Hubbard Essential hypertensi on [...] Provider Name:Jose E Hubbard, 03/12/2025 10:15:00 AM, [address] [place] [address] [address], [place], [address], Provider Name:Jose E Hubbard, 07/17/2025 10:00:00 AM, [address] [place] [address] [address], [place], [address], Progress Notes * Elmer GARCIA:1955 ([age] yo F)Acc No.[id number]:10/30/2024 Patient: Malu BOJORQUEZ Provider: Una Hubbard MD :1955 A ge:69 Y S ex:Female Date:10/30/2024 [facility] [id number] Subjective: * Chief Complaints: * A bdominal [...] of provider rendering services: { ...} [address] [facility] [address] [facility] [address] L ocation of patient: mac rodriguezess listed [...] History: * Surgical History: N egative colonoscopy, [facility], Dr. York 03/2022 * Hospitalization/Major Diagno stic [...] E x-cigarette smoker S he lives in [place]. She was born in [place]. She has been since 1997 and [...] 10/30/2024 Generated for Michael junior/Kiko/Eugenieitting on: 0 01/17/2025 11:36 AM EDT History and Physical Notes * HPI (History of Present Illness) Category Sub-Category Detail Notes Telehealth Location of [facility] rendering services:: {...} [address] [place] [address] Drive [address] [place] [address] Location of patient:: address listed in demographics [...]
--- OUTSIDE RECORDS SUMMARY | 2024-11-14 05:22 | XMS_ITS ---
Author Organization Jose E Hubbard III, MD Address [address] [place] [address] [place] [address] Care Team Providers Care Land Conservation Specialist Name Role Phone Jose E Hubbard Primary [...] Provider Diagnosis Jose E Hubbard III, MD [address] [place] [address] [place] [address] 11/14/2024 Jose E Hubbard Essential hypertensi on [...] Provider Name:Jose E Hubbard, 03/12/2025 10:15:00 AM, [address] [place] [address] [place], [address], Provider Name:Jose E Hubbard, 07/17/2025 10:00:00 AM, [address] [place] [address] [place], [address], Progress Notes * Elmer GARCIA:1955 ([age] yo F)Acc No.[id number]:11/14/2024 Patient: Malu BOJORQUEZ :1955 A ge:69 Y S ex:Female Address:[address] [place] [address] * Refills Refill Warfarin Sodium Tablet, 4 MG, Orally, 90 Tablet, 1 tablet, Once a day, 90 days, Refills=3 * true * Date: Generated for Michael junior/Kiko/Vonsmitting on: 0 01/17/2025 11:36 AM EDT
--- OUTSIDE RECORDS SUMMARY | 2024-12-06 06:00 | XMS_ITS ---
Author Organization Jose E Hubbard III, MD Address [address] [place] [address] [address] [place] [address] Care Team Providers Care Physicians Assistant Name Role Phone Jose E Hubbard [...] Problem Status W/U Status Risk Notes Problem [id number] Encounter for screening mammogram for malignant neoplasm [...] Provider Diagnosis Jose E Hubbard III, MD [address] [place] [address] [place] [address] 12/06/2024 Jose E Hubbard Essential hypertensi on [...] Provider Name:Jose E Hubbard, 03/12/2025 10:15:00 AM, [address] [place] [address] [address], [place], [address], Provider Name:Jose E Hubbard, 07/17/2025 10:00:00 AM, [address] [place] [address] [address], [place], [address], Progress Notes * Mini GARCIAB:1955 ([age] yo F)Acc No.[id number]:12/06/2024 Progress Notes Patient: Malu BOJORQUEZ Provider: Una Hubbard MD :1955 A ge:69 Y S ex:Female Date:12/06/2024 Address:[address] [place] [address], [id number] Subjective: * Chief Complaints: * H istory [...] History: * Surgical History: N egative colonoscopy, [facility], Dr. York 03/2022 * Hospitalization/Major [...] E x-cigarette smoker S he lives in [place]. She was born in [place]. She has been since 1997 and [...] AM Order Date 11/22/2024 11/01/2024 10/18/2024 10/04/2024 05/14/202 5 09/13/2024 09/06/2024 INR WHOLE BLOOD POC 2.0 [...] mg/dL) 166 (Ref Range: mg/dL) * Lab:Comprehensive [place]. Pane l Fast * Collection Date 10/04/2024 [...] true * Provider: Una Hubbard MD Date: 12/06/2024 Generated for Michael junior/Kiko/Eugenieitting on: 01/17/2025 11:37 AM EDT History and Physical [...]
[2025-01-17 10:27] LABS: Prothrombin Time Whole Bld POC 25.2 sec (11.1-13.5); ~PT, ~INR - Anti Coag Clinic 2.1 (0.9-1.1)
--- NOTE | 2025-01-17 10:31 | MHC.OFFVISCO ---
Intake Intake Visit Reasons: Anticoagulation Allergies acetaminophen (Percocet) Allergy (Severe, Verified 01/17/25 10:23) ITCHY RASH oxycodone (Percocet) Allergy (Severe, Verified 01/17/25 10:23) Itching Penicillins (PENICILLINS) Allergy (Intermediate, Verified 01/17/25 10:23) itchy rash naproxen (NAPROXEN) Allergy (Unknown, Verified 01/17/25 10:23) STOMACH PAIN Medication List - Last Reconciled 01/17/25 by Anali Louis RN acetaminophen ER mg PO atorvastatin 80 mg PO DAILY bisacodyl 10 mg PO BEDTIME chlorhexidine gluconate 0.12% PO docusate sodium 100 mg PO BEDTIME fluoxetine 20 mg PO DAILY gabapentin 100 mg PO DAILY metformin 500 mg PO DAILY metoprolol tartrate 25 mg PO BID omeprazole 20 mg PO DAILY warfarin 4 mg See Protocol PO DAILY Nursing Note NO CP,SOB,DIET/MED CHANGES,FALLS OR SX OF BLEEDING. CONTINUE PRESENT DOSE AND FOLLOW-UP IN 2 WEEKS GOOD UNDERSTANDING OF DOSING INSTR.BY [place] Initial Assessment Social Hx Patient Tobacco Use Status: Never used Tobacco alcohol intake: never Alcohol intake frequency: does not drink Coding Level of Care Code Est Patient Level 1 Diagnoses Current use of anticoagulant therapy Z79.01 Assessment & Plan Assessment & Plan (1) Current use of anticoagulant therapy: Code(s): Z79.01 - retirement (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
--- OUTSIDE RECORDS SUMMARY | 2025-01-17 11:38 | XMS_ITS | Clinical Summary ---
Author Organization [employer] Address [address] [place] [address] Care Team Providers Care General Road Foreman Name Role Phone Unavailable Primary Care Provider [...] of 2) 10/27/2005 COVID-19 Vaccine (2 - 2024-2 6 season) 2025 08/21/2020 Influenza Vaccine (#1) 2025 , 03/11/2017, [...] to complete this topic Insurance [facility] MEDICAID STAND ADULT
--- OUTSIDE RECORDS SUMMARY | 2025-01-17 11:38 | XMS_ITS | Patient Health Record ---
Author Organization Jose E Hubbard III, MD Address [address] [place] [address] [place] [address] Care Team Providers Care Activity Therapy Teacher Name Role Phone Jose E Hubbard Primary Care Provider [phone] Allergies Allergen (clinical drug ingredient) Drug/Non Drug Allergy documented on EMR Reaction Allergy Type Onset Date Status acetaminophen / oxycodone Percocet Unknown Drug Allergy Active miconazole Monistat 3 burning Drug Allergy Activ e Results Component Value Reference Range Notes RBS/Hemocue glucose Reviewed date:02/16/2024 09:42:15 AM Interpretation: Performing Lab: Notes/Report: RBS 108 INR WHOLE BLOOD POC Reviewed date:01/25/2024 04:12:11 PM Interpretation: Performing Lab:[facility], [address] [place] [phone] Notes/Report: PT, INR - Anti Coag Clinic 2.2 0.9-1.1 METER #: [id number] INTERNATIONAL NORMALIZED RATIO (INR) REFERENCE RANGES Reference [...] OC Reviewed date:01/25/2024 04:12:11 PM Interpretation: Performing Lab:[facility], [address] [place] [phone] Notes/Report: Prothrombin Time Whole Bld POC 26.6 11.1-13.5 sec Complete Blood Count Auto Di ff Reviewed date:02/09/2024 06:31:48 AM Interpretation: Performing Lab:[facility], [address] [place] [phone] Notes/Report: White Blood Count 9.2 4.8-10.8 X10*3/uL [...] NRBC Abs Auto 0.000 0.0-0.012 X10*3/uL Comprehensive [place]. Panel Fa st Reviewed date:02/09/2024 06:31:49 AM Interpretation: Performing Lab:[facility], [address] [place] [phone] Notes/Report: Sodium 143 135-145 mmol/L Potassium 4.3 3.3-5.1 mmol/L Chloride 112 96-108 mmol/L Carbon Dioxide 24 22-29 mmol/L Anion Gap 11 12-20 Blood Urea Nitrogen 29 9-16 mg/dL Creatinine 0.78 0.5-1.4 mg/dL Estimated Glomerular Filt Rate > 60 NOTE: For -Swedish individuals, multiply the result by 1.210. Chronic [...] Panel Reviewed date:02/09/2024 06:31:49 AM Interpretation: Performing Lab:[facility], [address] [place] [phone] Notes/Report: Triglycerides 75 <150 mg/dL Desirable Triglyceride: [...] POC Reviewed date:02/09/2024 06:31:48 AM Interpretation: Performing Lab:[facility], [address] [place] [phone] Notes/Report: PT, INR - Anti Coag Clinic 3.0 0.9-1.1 METER #: [id number] INTERNATIONAL NORMALIZED RATIO (INR) REFERENCE RANGES Reference [...] OC Reviewed date:02/09/2024 06:31:48 AM Interpretation: Performing Lab:[facility], [address] [place] [phone] Notes/Report: Prothrombin Time Whole Bld POC 36.0 11.1-13.5 sec Hemoglobin A1c Reviewed date:02/09/2024 06:31:48 AM Interpretation: Performing Lab:[facility], [address] [place] [phone] Notes/Report: Hemoglobin A1c % 7.5 <6.0 % [...] average glucose, using the formula of the Z4O-Hthldax Average Glucose study (ADAG), Diabetes Care, Vol.31,#8, Dec. 2007 INR WHOLE BLOOD POC Reviewed date:02/23/2024 11:26:27 AM Interpretation: Performing Lab:[facility], [address] [place] [phone] Notes/Report: PT, INR - Anti [facility]ag Clinic 2.4 0.9-1.1 METER #: [id number] INTERNATIONAL NORMALIZED RATIO (INR) REFERENCE RANGES Reference [...] OC Reviewed date:02/23/2024 11:26:27 AM Interpretation: Performing Lab:[facility], [address] [place] [phone] Notes/Report: Prothrombin Time Whole Bld POC 28.8 11.1-13.5 sec INR WHOLE BLOOD POC Reviewed date:03/14/2024 03:12:08 PM Interpretation: Performing Lab:[facility], [address] [place] [phone] Notes/Report: PT, INR - Anti Coag Clinic 2.6 0.9-1.1 METER #: [id number] INTERNATIONAL NORMALIZED RATIO (INR) REFERENCE RANGES Reference [...] OC Reviewed date:03/14/2024 03:12:08 PM Interpretation: Performing Lab:[facility], [address] [place] [phone] Notes/Report: Prothrombin Time Whole Bld POC 30.7 11.1-13.5 sec INR WHOLE BLOOD POC Reviewed date:03/28/2024 02:06:07 PM Interpretation: Performing Lab:[facility], [address] [place] [phone] Notes/Report: PT, INR - Anti Coag Clinic 2.4 0.9-1.1 METER #: [id number] INTERNATIONAL NORMALIZED RATIO (INR) REFERENCE RANGES Reference [...] OC Reviewed date:03/28/2024 02:06:07 PM Interpretation: Performing Lab:[facility], [address] [place] [phone] Notes/Report: Prothrombin Time Whole Bld POC 29.2 11.1-13.5 sec INR WHOLE BLOOD POC Reviewed date:04/04/2024 09:01:19 PM Interpretation: Performing Lab:[facility], [address] [place] [phone] Notes/Report: PT, INR - Anti Coag Clinic 2.4 0.9-1.1 METER #: [id number] INTERNATIONAL NORMALIZED RATIO (INR) REFERENCE RANGES Reference [...] OC Reviewed date:04/04/2024 09:01:19 PM Interpretation: Performing Lab:[facility], [address] [place] [phone] Notes/Report: Prothrombin Time Whole Bld POC 28.9 11.1-13.5 sec INR WHOLE BLOOD POC Reviewed date:04/24/2024 05:20:08 AM Interpretation: Performing Lab:[facility], [address] [place] [phone] Notes/Report: PT, INR - Anti Coag Clinic 2.6 0.9-1.1 METER #: [id number] INTERNATIONAL NORMALIZED RATIO (INR) REFERENCE RANGES Reference [...] OC Reviewed date:04/24/2024 05:20:08 AM Interpretation: Performing Lab:[facility], [address] [place] [phone] Notes/Report: Prothrombin Time Whole Bld POC 31.6 11.1-13.5 sec INR WHOLE BLOOD POC Reviewed date:05/12/2024 04:18:48 PM Interpretation: Performing Lab:[facility], [address] [place] [phone] Notes/Report: PT, INR - Anti Coag Clinic 1.9 0.9-1.1 METER #: [id number] INTERNATIONAL NORMALIZED RATIO (INR) REFERENCE RANGES Reference [...] OC Reviewed date:05/12/2024 04:18:48 PM Interpretation: Performing Lab:[facility], [address] [place] [phone] Notes/Report: Prothrombin Time Whole Bld POC 23.3 11.1-13.5 sec INR WHOLE BLOOD POC Reviewed date:05/29/2024 10:54:12 AM Interpretation: Performing Lab:[facility], [address] [place] [phone] Notes/Report: PT, INR - Anti Coag Clinic 2.4 0.9-1.1 METER #: [id number] INTERNATIONAL NORMALIZED RATIO (INR) REFERENCE RANGES Reference [...] OC Reviewed date:05/29/2024 10:54:12 AM Interpretation: Performing Lab:[facility], [address] [place] [phone] Notes/Report: Prothrombin Time Whole Bld POC 29.1 11.1-13.5 sec INR WHOLE BLOOD POC Reviewed date:06/19/2024 06:09:47 PM Interpretation: Performing Lab:[facility], [address] [place] [phone] Notes/Report: PT, INR - Anti Coag Clinic 2.2 0.9-1.1 METER #: [id number] INTERNATIONAL NORMALIZED RATIO (INR) REFERENCE RANGES Reference [...] OC Reviewed date:06/19/2024 06:09:47 PM Interpretation: Performing Lab:[facility], [address] [place] [phone] Notes/Report: Prothrombin Time Whole Bld POC 26.9 11.1-13.5 sec INR WHOLE BLOOD POC Reviewed date:06/28/2024 09:04:14 AM Interpretation: Performing Lab:[facility], [address] [place] [phone] Notes/Report: PT, INR - Anti Coag Clinic 2.6 0.9-1.1 METER #: [id number] INTERNATIONAL NORMALIZED RATIO (INR) REFERENCE RANGES Reference [...] OC Reviewed date:06/28/2024 09:04:14 AM Interpretation: Performing Lab:[facility], [address] [place] [phone] Notes/Report: Prothrombin Time Whole Bld POC 31.7 11.1-13.5 sec INR WHOLE BLOOD POC Reviewed date:08/01/2024 12:17:16 PM Interpretation: Performing Lab:[facility], [address] [place] [phone] Notes/Report: PT, INR - Anti Coag Clinic 2.0 0.9-1.1 METER #: [id number] INTERNATIONAL NORMALIZED RATIO (INR) REFERENCE RANGES Reference [...] OC Reviewed date:08/01/2024 12:17:17 PM Interpretation: Performing Lab:[facility], [address] [place] [phone] Notes/Report: Prothrombin Time Whole Bld POC 24.5 11.1-13.5 sec INR WHOLE BLOOD POC Reviewed date:08/01/2024 12:17:16 PM Interpretation: Performing Lab:[facility], [address] [place] [phone] Notes/Report: PT, INR - Anti Coag Clinic 1.7 0.9-1.1 METER #: [id number] INTERNATIONAL NORMALIZED RATIO (INR) REFERENCE RANGES Reference [...] OC Reviewed date:08/01/2024 12:17:16 PM Interpretation: Performing Lab:[facility], [address] [place] [phone] Notes/Report: Prothrombin Time Whole Bld POC 20.4 11.1-13.5 sec INR WHOLE BLOOD POC Reviewed date:08/07/2024 10:48:30 AM Interpretation: Performing Lab:[facility], [address] [place] [phone] Notes/Report: PT, INR - Anti Coag Clinic 2.5 0.9-1.1 METER #: [id number] INTERNATIONAL NORMALIZED RATIO (INR) REFERENCE RANGES Reference [...] OC Reviewed date:08/07/2024 10:48:30 AM Interpretation: Performing Lab:[facility], [address] [place] [phone] Notes/Report: Prothrombin Time Whole Bld POC 29.5 11.1-13.5 sec INR WHOLE BLOOD POC Reviewed date:08/24/2024 08:14:12 PM Interpretation: Performing Lab:[facility], [address] [place] [phone] Notes/Report: PT, INR - Anti Coag Clinic 2.8 0.9-1.1 METER #: [id number] INTERNATIONAL NORMALIZED RATIO (INR) REFERENCE RANGES Reference [...] OC Reviewed date:08/24/2024 08:14:12 PM Interpretation: Performing Lab:[facility], [address] [place] [phone] Notes/Report: Prothrombin Time Whole Bld POC 33.4 11.1-13.5 sec INR WHOLE BLOOD POC Reviewed date:09/13/2024 03:54:56 PM Interpretation: Performing Lab:[facility], [address] [place] [phone] Notes/Report: PT, INR - Anti Coag Clinic 4.5 0.9-1.1 METER #: [id number] INTERNATIONAL NORMALIZED RATIO (INR) REFERENCE RANGES Reference [...] OC Reviewed date:09/13/2024 03:54:56 PM Interpretation: Performing Lab:[facility], [address] [place] [phone] Notes/Report: Prothrombin Time Whole Bld POC 53.6 11.1-13.5 sec INR WHOLE BLOOD POC Reviewed date:09/13/2024 03:54:56 PM Interpretation: Performing Lab:[facility], [address] [place] [phone] Notes/Report: PT, INR - Anti Coag Clinic 3.0 0.9-1.1 METER #: [id number] INTERNATIONAL NORMALIZED RATIO (INR) REFERENCE RANGES Reference [...] OC Reviewed date:09/13/2024 03:54:56 PM Interpretation: Performing Lab:[facility], [address] [place] [phone] Notes/Report: Prothrombin Time Whole Bld POC 36.2 11.1-13.5 sec INR WHOLE BLOOD POC Reviewed date:09/27/2024 11:28:44 AM Interpretation: Performing Lab:[facility], [address] [place] [phone] Notes/Report: PT, INR - Anti Coag Clinic 3.2 0.9-1.1 METER #: [id number] INTERNATIONAL NORMALIZED RATIO (INR) REFERENCE RANGES Reference [...] OC Reviewed date:09/27/2024 11:28:44 AM Interpretation: Performing Lab:[facility], [address] [place] [phone] Notes/Report: Prothrombin Time Whole Bld POC 38.7 11.1-13.5 sec Complete Blood Count Auto Di ff Reviewed date:10/05/2024 05:27:32 AM Interpretation: Performing Lab:[facility], [address] [place] [phone] Notes/Report: White Blood Count 7.6 4.8-10.8 X10*3/uL [...] NRBC Abs Auto 0.000 0.0-0.012 X10*3/uL Comprehensive [place]. Panel Fa Reviewed date:10/05/2024 05:27:32 AM Interpretation: Performing Lab:[address] [phone] Notes/Report: Sodium 144 135-145 mmol/L Potassium 4.2 3.3-5.1 mmol/L Chloride 110 96-108 mmol/L Carbon Dioxide 27 22-29 mmol/L Anion Gap 11 12-20 Blood Urea Nitrogen 27 9-16 mg/dL Creatinine 0.70 0.5-1.4 mg/dL Estimated Glomerular Filt Rate > 60 Chronic Kidney Disease: Estimated GFR < 60 mL/min/1.73m2 Severe Kidney Disease: Estimated GFR < 15 mL/min/1.73m2 Glucose Fasting 127 60-99 mg/dL A fasting glucose of 126 mg/dl or greater on more than one occasion is considered diagnostic of diabetes. Calcium 8.3 8.4-10.2 mg/dL Bilirubin Total 0.3 0.0-1.0 mg/dL Aspartate Amino Transferase 42 5-31 U/L Alanine Aminotransferase 43 0-31 U/L Total Protein 7.0 6.5-8.0 g/dL Albumin Level 3.9 3.5-5.0 g/dL Alkaline Phosphatase 147 39-117 U/L Lipid Panel Reviewed date:10/05/2024 05:27:32 AM Interpretation: Performing Lab:[address] [phone] Notes/Report: Triglycerides 61 <150 mg/dL Desirable Triglyceride: less than 150 mg/dL Borderline High Triglyceride 150-199 mg/dL High Triglyceride: 200-499 mg/dL Very High Triglyceride: greater than or equal to 5OO mg/dL Cholesterol 78 <200 mg/dL Desirable Cholesterol: less than 200 mg/dL Borderline High Cholesterol: 200-239 mg/dL High Cholesterol: greater than 239 mg/dL LDL Cholesterol Calculated 33 <100 mg/dL Desirable LDL: less than 100 mg/dL Near Optimal/Above Optimal LDL: 110-129 mg/dL Borderline High LDL: 130-159 mg/dL High LDL: 160-189 mg/dL Very High LDL: greater than or equal to 190 mg/dL HDL Cholesterol 33 >40 mg/dL Desirable HDL: greater than 40 mg/dL Note: This HDL assay may give artificially low results in patients with liver disease. Microalbumin, Random Reviewed date:10/05/2024 05:27:32 AM Interpretation: Performing Lab:[facility], [address] [place] [phone] Notes/Report: Creatinine Urine 132.65 Microalbumin Urine 13.0 Microalbum/Creatinine Ratio Ur 9.8 <30 ug/mg cr Albumin/Creatinine Ratio Reference Ranges: Normal: < 30 ug/mg creatinine Microalbuminuria: 30 - 300 ug/mg creatinine Clinical Albuminuria: > 300 ug/mg creatinine INR WHOLE BLOOD POC Reviewed date:10/05/2024 05:27:32 AM Interpretation: Performing Lab:[facility], [address] [place] [phone] Notes/Report: PT, INR - Anti Coag Clinic 3.2 0.9-1.1 METER #: [id number] INTERNATIONAL NORMALIZED RATIO (INR) REFERENCE RANGES Reference [...] Prothrombin Time Whole Bld P OC Reviewed date:10/05/2024 05:27:32 AM Interpretation: Performing Lab:[facility], [address] [place] [phone] Notes/Report: Prothrombin Time Whole Bld POC 38.7 11.1-13.5 sec Hemoglobin A1c Reviewed date:10/05/2024 05:27:32 AM Interpretation: Performing Lab:[facility], [address] [place] [phone] Notes/Report: Hemoglobin A1c % 7.3 <6.0 % Hemoglobin A1C Reference Range Adults: 4.8 - 6.0 % Non diabetic: < 6.0 % Goal: < 7.0 % Additional Action Suggested: > 8.0 % Note: Hemoglobin A1c results are invalid for patients with abnormal amounts of HbF. Blood transfusions may impact the HbA1c concentration in the patient sample. Estimated Average Glucose 163 eAG = Estimated average glucose which is %A1C expressed as average glucose, using the formula of the G4W-Cqpsjct Average Glucose study (ADAG), Diabetes Care, Vol.31,#8, 2007 INR WHOLE BLOOD POC Reviewed date:10/20/2024 01:43:10 PM Interpretation: Performing Lab:[facility], [address] [place] [phone] Notes/Report: PT, INR - Anti Coag Clinic 3.5 0.9-1.1 METER #: [id number] INTERNATIONAL NORMALIZED RATIO (INR) REFERENCE RANGES Reference [...] Prothrombin Time Whole Bld P OC Reviewed date:10/20/2024 01:43:10 PM Interpretation: Performing Lab:[facility], [address] [place] [phone] Notes/Report: Prothrombin Time Whole Bld POC 42.2 11.1-13.5 sec INR WHOLE BLOOD POC Reviewed date:11/01/2024 11:06:36 AM Interpretation: Performing Lab:[facility], [address] [place] [phone] Notes/Report: PT, INR - Anti Coag Clinic 2.3 0.9-1.1 METER #: [id number] INTERNATIONAL NORMALIZED RATIO (INR) REFERENCE RANGES Reference [...] Prothrombin Time Whole Bld P OC Reviewed date:11/01/2024 11:06:36 AM Interpretation: Performing Lab:[facility], [address] [place] [phone] Notes/Report: Prothrombin Time Whole Bld POC 27.6 11.1-13.5 sec INR WHOLE BLOOD POC Reviewed date:11/22/2024 01:44:56 PM Interpretation: Performing Lab:[facility], [address] [place] [phone] Notes/Report: PT, INR - Anti Coag Clinic 2.0 0.9-1.1 METER #: [id number] INTERNATIONAL NORMALIZED RATIO (INR) REFERENCE RANGES Reference [...] Prothrombin Time Whole Bld P OC Reviewed date:11/22/2024 01:44:56 PM Interpretation: Performing Lab:[facility], [address] [place] [phone] Notes/Report: Prothrombin Time Whole Bld POC 24.0 11.1-13.5 sec INR WHOLE BLOOD POC Reviewed date:12/20/2024 12:42:36 PM Interpretation: Performing Lab:[facility], [address] [place] [phone] Notes/Report: PT, INR - Anti Coag Clinic 3.3 0.9-1.1 METER #: [id number] INTERNATIONAL NORMALIZED RATIO (INR) REFERENCE RANGES Reference [...] Prothrombin Time Whole Bld P OC Reviewed date:12/20/2024 12:42:36 PM Interpretation: Performing Lab:[facility], [address] [place] [phone] Notes/Report: Prothrombin Time Whole Bld POC 39.7 11.1-13.5 sec INR WHOLE BLOOD POC Reviewed date:01/07/2025 05:06:41 AM Interpretation: Performing Lab:[facility], [address] [place] [phone] Notes/Report: PT, INR - Anti Coag Clinic 3.0 0.9-1.1 METER #: [id number] INTERNATIONAL NORMALIZED RATIO (INR) REFERENCE RANGES Reference [...] Prothrombin Time Whole Bld P OC Reviewed date:01/07/2025 05:06:41 AM Interpretation: Performing Lab:[facility], [address] [place] [phone] Notes/Report: Prothrombin Time Whole Bld POC 35.8 11.1-13.5 sec INR WHOLE BLOOD POC (Not yet reviewed by provider) Interpretation: Performing Lab:[facility], [address] [place] [phone] Notes/Report: PT, INR - Anti Coag Clinic 2.1 0.9-1.1 METER #: [id number] INTERNATIONAL NORMALIZED RATIO (INR) REFERENCE RANGES Reference [...] (Not yet reviewed by provider) Interpretation: Performing Lab:[facility], [address] [place] [phone] Notes/Report: Prothrombin Time Whole Bld POC 25.2 11.1-13.5 sec Reason For Referral No Information Medications Medication SIG (Take, Route, Frequency, Duration) Notes Start Date End Date Status Warfarin Sodium 4 MG 1 tablet Orally Onc e a day Active Atorvastatin Calcium 80 MG 1 tablet Oral ly Once a day Active FLUoxetine HCl 20 MG 1 capsule Orally On ce a day Active Omeprazole 20 MG TAKE 1 CAPSULE 30 MA NUTES BEFORE MORNING MEAL ORALLY ONCE A DAY 90 DAYS for 30 Active diazePAM 5 MG 1 tablet if needed O rally Once a day for 2 days 12/06/2024 Active Metoprolol Tartrate 25 MG 1 tablet with food Orally Twice a day Active diazePAM 5 MG 1 tablet Orally ever y 4 hours for anxiety 01/12/2023 Active Gabapentin 100 MG 1 capsule Orally Onc e a day Active metFORMIN HCl 500 MG 1 tablet Orally Onc e a day 07/25/2024 Active Docusate Sodium Acti ve Immunizations Vaccine Route Administration Date Status Comme [...] Problem Status W/U Status Risk Notes Problem 9834634 Former smoker (Z87.891) Active confirmed He is unable to obtain cigarettes. She does not smoke since his stroke. She says she does not want to. Problem 10080250 Fibromyalgia (M79.7) Active confirmed Fibromyalgia lately has been low-grade she lives with a without a great deal difficulty. No medical therapies necessary. Problem Information temporarily unavailable Hyperglycemia (R73.9) Active confirmed Problem 225092344 Gastro-esophagea l reflux disease without esophagitis (K21.9) Active confirmed She will continue on omeprazole and liquid antacid as needed. Problem 381252673 Encounter for screening mammogram for malignant neoplasm of breast (Z12.31) Active confirmed RI annual mammogram has been scheduled. Problem 44026386 Essential hypertension (I10) Active confirmed Low The most recent blood pressure was within normal limits and no change in her regimen was necessary. Problem 026086199 Anticoagulation adequate (Z79.01) Active confirmed She has jj d no bleeding and is compliant with her therapy. Problem Information temporarily unavailable CVA (cerebral vascular accident) (I63.9) Active confirmed She is currently anticoagulated because of the stroke. She has a dense right hemiplegia, but no further neurological symptoms. She is awake and alert and responsive to questions. Her speech is fluent. Problem 100936955 Morbid obesity (E66.01) Active confirmed He discussed her overweight status. We discussed diet and nutrition. We made plans for her to lose weight at a rate of one half of a pound per week. Problem 305091405 Gallstones (K80.20) Active confirmed She remains free of symptoms from her cholelithiasis. Problem Information temporarily unavailable Right hemiplegia (G81.91) Active confirmed There has been no change in the weakness of the right arm and leg. She remains confined to a wheelchair. The weakness in the right arm is dense. Problem 816169239 Type 2 diabetes mellitus without complication, without long-term current use of insulin (E11.9) Active confirmed Her hemoglob in A1c is 7.3. She has lost 3 pounds. We discussed continued weight loss through diet. No change in her medications was necessary. Problem 743569191 Acute abdominal pain (R10.9) Active confirmed Pain is mild and has been present for only 24 hours. She is able to eat and drink. She has had no nausea vomiting or diarrhea. If she worsens she'll return to the emergency room. I began an antibiotic. Vital Signs Heart Rate 73 /min 12/06/2024 Temperature 98.8 degrees Fahrenheit 12/06/2024 Blood pressure diastolic 66 mm Hg 12/06/2024 Height 58 in 12/06/2024 Blood pressure systolic 129 mm Hg 12/06/2024 Weight 175 lbs 12/06/2024 BMI 36.57 kg/m2 12/06/2024 Encounters Encounter Location Date Provider Diagnosis Jose E Hubbard III, MD [address] [place] [address] [place] [address] 01/25/2024 Jose E Hubbard Essential hypertensi on I10 ; Morbid obesity E66.01 ; Type 2 diabetes mellitus without complication, without long-term current use of insulin E11.9 ; Fibromyalgia M79.7 ; Gastro-esophageal reflux disease without esophagitis K21.9 ; CVA (cerebral vascular accident) I63.9 ; Anticoagulation adequate Z79.01 ; Right hemiplegia G81.91 and Former smoker Z87.891 Jose E Hubbard III, MD [address] [place] [address] [place] [address] 02/16/2024 Jose E Hubbard Essential hypertensi on I10 ; DM (diabetes mellitus) E11.9 ; Fibromyalgia M79.7 ; Gastro-esophageal reflux disease without esophagitis K21.9 ; CVA (cerebral vascular accident) I63.9 ; Anticoagulation adequate Z79.01 ; Right hemiplegia G81.91 ; Former smoker Z87.891 and Obesity (BMI 30-39.9) E66.9 Jose E Hbubard III, MD [address] [place] [address] [place] [address] 07/14/2024 Jose E Hubbadr Essential hypertensi on I10 ; CVA (cerebral vascular accident) I63.9 ; Gastro-esophageal reflux disease without esophagitis K21.9 ; Anticoagulation adequate Z79.01 ; Former smoker Z87.891 ; Fibromyalgia M79.7 and Right hemiplegia G81.91 Jose E Hubbard III, MD [address] [place] [address] [place] [address] 10/11/2024 Jose E Hubbard Essential hypertensi on I10 ; CVA (cerebral vascular accident) I63.9 ; Fibromyalgia M79.7 ; Right hemiplegia G81.91 ; Former smoker Z87.891 ; Anticoagulation adequate Z79.01 ; Type 2 diabetes mellitus without complication, without long-term current use of insulin E11.9 and Obesity (BMI 30-39.9) E66.9 Jose E Hubbard III, MD [address] [place] [address] [place] [address] 10/30/2024 Jose E Hubbard Essential hypertensi on I10 ; Acute abdominal pain R10.9 ; Anticoagulation adequate Z79.01 ; CVA (cerebral vascular accident) I63.9 ; Gastro-esophageal reflux disease without esophagitis K21.9 ; Fibromyalgia M79.7 ; Type 2 diabetes mellitus without complication, without long-term current use of insulin E11.9 ; Right hemiplegia G81.91 and Former smoker Z87.891 Jose E Hubbard III, MD [address] [place] [address] [place] [address] 12/06/2024 Jose E Hubbard Essential hypertensi on I10 ; CVA (cerebral vascular accident) I63.9 ; Type 2 diabetes mellitus without complication, without long-term current use of insulin E11.9 ; Encounter for screening mammogram for malignant neoplasm of breast Z12.31 ; Former smoker Z87.891 ; Gastro-esophageal reflux disease without esophagitis K21.9 ; Anticoagulation adequate Z79.01 ; Right hemiplegia G81.91 and Fibromyalgia M79.7 Jose E Hubbard III, MD [address] [place] [address] [place] [address] 03/17/2024 Jose E Hubbard III, MD [address] [place] [address] [place] [address] 07/25/2024 Jose E Hubbard III, MD [address] [place] [address] [place] [address] 07/25/2024 Jose E Hubbard III, MD [address] [place] [address] [place] [address] 09/20/2024 Jose E Hubbard Essential hypertensi on I10 Jose E Hubbard III, MD [address] [place] [address] [place] [address] 09/26/2024 Jose E Hubbard III, MD [address] [place] [address] [place] [address] 11/14/2024 Jose E Hubbard Essential hypertensi on I10 Assessments Encounter Date Diagnosis (ICD Code) Assessment Notes Treat ment Notes Treatment Clinical Notes 01/25/2024 Essential hypertension (ICD-10 - I10) Her [...] to questions. Her speech is fluent. 10/11/2024 Essential hypertension (ICD-10 - I10) Her blood pressure was normal and no change in her regimen was necessary. 10/11/2024 CVA (cerebral vascular accident) (ICD-10 - I63.9) She is currently anticoagulated because of the stroke. She has a dense right hemiplegia, but no further neurological symptoms. She is awake and alert and responsive to questions. Her speech is fluent. 10/30/2024 Essential hypertension (ICD-10 - I10) The [...] the emergency room. I began an antibiotic. 12/06/2024 Essential hypertension (ICD-10 - I10) The most recent blood pressure was within normal limits and no change in her regimen was necessary. 12/06/2024 CVA (cerebral vascular accident) (ICD-10 - I63.9) She is currently anticoagulated because of the stroke. She has a dense right hemiplegia, but no further neurological symptoms. She is awake and alert and responsive to questions. Her speech is fluent. 09/20/2024 Essential hypertension (ICD-10 - I10) Her blood pressure was 126/77 and no change in her regimen was necessary. 11/14/2024 Essential hypertension (ICD-10 - I10) The most recent blood pressure was 126/77 and no change in her regimen was necessary. 01/25/2024 Type 2 diabetes mellitus without [...] on omeprazole and liquid antacid as needed. 10/11/2024 Fibromyalgia (ICD-10 - M79.7) Fibromyalgia lately has been low-grade she lives with a without a great deal difficulty. No medical therapies necessary. 10/30/2024 Anticoagulation adequate (ICD-10 - Z79.01) She has had no bleeding and is compliant with her therapy. 12/06/2024 Type 2 diabetes mellitus without complication, without long-term current use of insulin (ICD-10 - E11.9) Her hemoglobin A1c is 7.3. She has lost 3 pounds. We discussed continued weight loss through diet. No change in her medications was necessary. 01/25/2024 Fibromyalgia (ICD-10 - M79.7) Fibromyalgia lately has been low-grade she lives with a without a great deal difficulty. No medical therapies necessary. 02/16/2024 Gastro-esophageal reflux disease without esophagitis (ICD-10 - K21.9) She will continue on omeprazole and liquid antacid as needed. 07/14/2024 Anticoagulation adequate (ICD-10 - Z79.01) She has had no bleeding and is compliant with her therapy. 10/11/2024 Right hemiplegia (ICD-10 - G81.91) There has been no change in the weakness of the right arm and leg. She remains confined to a wheelchair. The weakness in the right arm is dense. 10/30/2024 CVA (cerebral vascular accident) (ICD-10 - I63.9) She is currently anticoagulated because of the stroke. She has a dense right hemiplegia, but no further neurological symptoms. She is awake and alert and responsive to questions. Her speech is fluent. 12/06/2024 Encounter for screening mammogram for malignant neoplasm of breast (ICD-10 - Z12.31) [place] annual mammogram has been scheduled. 01/25/2024 Gastro-esophageal reflux disease without esophagitis (ICD-10 [...] says she does not want to. 10/11/2024 Former smoker (ICD-1 0 - Z87.891) He is unable to obtain cigarettes. She does not smoke since his stroke. She says she does not want to. 10/30/2024 Gastro-esophageal reflux disease without esophagitis (ICD-10 - K21.9) She will continue on omeprazole and liquid antacid as needed. 12/06/2024 Former smoker (ICD-1 0 - Z87.891) He is unable to obtain cigarettes. She does not smoke since his stroke. She says she does not want to. 01/25/2024 CVA (cerebral vascular accident) (ICD-10 - [...] deal difficulty. No medical therapies necessary. 10/11/2024 Anticoagulation adequate (ICD-10 - Z79.01) She has had no bleeding and is compliant with her therapy. 10/30/2024 Fibromyalgia (ICD-10 - M79.7) Fibromyalgia lately has been low-grade she lives with a without a great deal difficulty. No medical therapies necessary. 12/06/2024 Gastro-esophageal reflux disease without esophagitis (ICD-10 - K21.9) She will continue on omeprazole and liquid antacid as needed. 01/25/2024 Anticoagulation adequate (ICD-10 - Z79.01) She [...] in the right arm is dense. 10/11/2024 Type 2 diabetes mellitus without complication, without long-term current use of insulin (ICD-10 - E11.9) I have ordered comprehensive blood work with a hemoglobin A1c fasting glucose lipid profile and microalbumin. No change in her medications was made. 10/30/2024 Type 2 diabetes mellitus without complication, without long-term current use of insulin (ICD-10 - E11.9) I have ordered comprehensive blood work with a hemoglobin A1c fasting glucose lipid profile and microalbumin. No change in her medications was made. 12/06/2024 Anticoagulation adequate (ICD-10 - Z79.01) She has had no bleeding and is compliant with her therapy. 01/25/2024 Right hemiplegia (ICD-10 - G81.91) There has been no change in the weakness of the right arm and leg. She remains confined to a wheelchair. The weakness in the right arm is dense. 02/16/2024 Former smoker (ICD-1 0 - Z87.891) He is unable to obtain cigarettes. She does not smoke since his stroke. She says she does not want to. 10/11/2024 Obesity (BMI 30-39.9 ) (ICD-10 - E66.9) 10/30/2024 Right hemiplegia (ICD-10 - G81.91) There has been no change in the weakness of the right arm and leg. She remains confined to a wheelchair. The weakness in the right arm is dense. 12/06/2024 Right hemiplegia (ICD-10 - G81.91) There has been no change in the weakness of the right arm and leg. She remains confined to a wheelchair. The weakness in the right arm is dense. 01/25/2024 Former smoker (ICD-1 0 - Z87.891) He is unable to obtain cigarettes. She does not smoke since his stroke. She says she does not want to. 02/16/2024 Obesity (BMI 30-39.9 ) (ICD-10 - E66.9) Her body mass index is 38.. She is dependent upon her family for nutrition and we had a discussion about diet and weight loss today. 10/30/2024 Former smoker (ICD-1 0 - Z87.891) He is unable to obtain cigarettes. She does not smoke since his stroke. She says she does not want to. 12/06/2024 Fibromyalgia (ICD-10 - M79.7) Fibromyalgia lately has been low-grade she lives with a without a great deal difficulty. No medical therapies necessary. Plan Of Treatment Pending Test Test Name Order Date PROFILE, FASTING (COMPREHENSIVE METABOLI C) 01/05/2023 PROFILE, FASTING (COMPREHENSIVE METABOLI C) 11/16/2023 PROFILE, FASTING (COMPREHENSIVE METABOLI C) 12/06/2024 PROFILE, FASTING (COMPREHENSIVE METABOLI C) 04/15/2022 PROFILE, [...] 03/05/2020 MICROALBUMIN, RANDOM 01/05/2023 CBC w DIFF 06/15/2019 CBC w DIFF 10/23/2021 CBC w DIFF 11/10/2021 CBC w DIFF 07/08/2022 CBC w DIFF 04/07/2023 CBC w DIFF 03/05/2020 CBC w DIFF 09/02/2020 CBC w DIFF 12/06/2024 CBC w DIFF 04/20/2019 CBC w DIFF [...] Panel 04/07/2023 Lipid Panel 11/16/2023 Lipid Panel 12/06/2024 Lipid Panel 07/14/2024 Lipid Panel 07/13/2023 Microalbumin, Random 07/14/2024 INR WHOLE BLOOD POC 01/17/2025 Prothrombin Time Whole Bld POC T Spot TB 08/04/2022 MM tomosynthesis screening BI 12/06/2024 US abdomen complete 07/08/2022 Hemoglobin A1c 12/06/2024 Hemoglobin A1c 07/14/2024 Next Appt Details Provider Name:Jose E Hubbard, 03/12/2025 10:15:00 AM, [address] [place] [address] MONI JASMINE, [place], [address], Provider Name:Jose E Hubbard, 07/17/2025 10:00:00 AM, [address] [place] [address] MONI JASMINE, [place], [address], Insurance Providers Payer Name Payer Address Payer Phone Subscriber Number Group Number Insured Name Patient Relationship to Insured Coverage Start Date Coverage End Date MEDICARE NGS [address] [place] [address] [id number] Malu Garcia Self - patient is the insured [place] [address] [place], [place] [id number] JoseMalu Self - patient is the insured Medical [...]
--- OUTSIDE RECORDS SUMMARY | 2025-01-17 11:38 | XMS_ITS | Clinical Summary ---
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
--- OUTSIDE RECORDS SUMMARY | 2025-01-17 11:38 | XMS_ITS | Patient Health Record ---
Author Organization [facility] Address [address] [place] [address] Care Team Providers Care Psychologist Clinical Name Role Phone Jose E Hubbard MD Primary Care Provider Unavailab Khadar Arboleda Unavailable [phone] Allergies Allergen (clinical drug ingredient) Drug/Non Drug [...] Omeprazole 20 MG take 1 capsule by [facility] twice a day 30 MINUTES PRIOR TO BREAKFAST AND SUPPER Oral; Duration: 30 Active Vitamin D3 400 units once daily Active Social History Tobacco use other than smoking: Question Answer Notes Are you an other tobacco user? No Problems Problem Type SNOMED Code ICD Code Onset Dates Problem Status W/U Status Risk Notes Problem Information temporarily unavailable Arthralgia (719.40) Active confirmed Problem Information temporarily unavailable Arthritis - Degenerative (719.97) Active confirmed Problem Information temporarily unavailable Hammer toe (735.4) Active confirmed Problem Information temporarily unavailable Onychomycosis (110.1) Active confirmed Problem Information temporarily unavailable Pain in Limb (729.5) Active confirmed Problem Information temporarily unavailable Tenosynovitis (727.06) Active confirmed Problem Information temporarily unavailable Ulcer of Other Part of Foot (707.15) Active confirmed Plan Of Treatment Pending Test Test Name Order Date X ray : Foot, left 3V 12/28/2011 04180- Debride <25 sq cm 08/17/2013 Insurance Providers Payer Name Payer Address Payer Phone Subscriber Number Group Number Insured Name Patient Relationship to Insured Coverage Start Date Coverage End Date [employer] [address] [place] [address] [id number] GAYLA AIKEN Self - patient is the insured Medical (General) History Medical History History ICD Code fibromyalgia Reflux Surgical History Surgery Date(Month/Year) foot surgery 2008 hand/wrist 2006
== END 2025-01-17 10:33 | disposition home or self-care (01) ==
LOC: HO.ACS 10:10
PROVIDERS: PCP Internal Medicine Medical Oncology; Visit Provider Internal Medicine Medical Oncology
DX: Z79.01 Long term (current) use of anticoagulants (principal)

== ENCOUNTER → 2025-01-17 10:10 | Outpatient (BNVA) | payer MEDICARE, MEDICAID, SELFPAY | PROVIDERS: PCP Internal Medicine Medical Oncology; Visit Provider Internal Medicine Medical Oncology | DX: Z51.81 Encounter for therapeutic drug level monitoring (principal); Z79.01 Long term (current) use of anticoagulants | CPT/HCPCS: 85610; 99211 ==

== ENCOUNTER 2025-01-31 10:10 | Outpatient (AMB) | payer MEDICARE, MEDICAID, SELFPAY ==
--- OUTSIDE RECORDS SUMMARY | 2024-09-26 05:54 | XMS_ITS ---
Author Organization Jose E Hubbard III, MD Address [address] [place] [address] [place] [address] Care Team Providers Care Catia Designer Name Role Phone Jose E Hubbard Primary Care Provider [phone] Medications Medication SIG (Take, Route, Frequency, Duration) Notes Start Date End Date Status Atorvastatin Calcium 80 MG 1 tablet Oral ly Once a day for 90 days Active Social History Sex Assigned At : Social History Observation Description Sex Assigned At Female Encounters Encounter Location Date Provider Diagnosis Jose E Hubbard III, MD [address] [place] [address] [place] [address] 09/26/2024 Jose E Hubbard Plan Of Treatment Medication Medication Name Sig Start Date Stop Date Notes Atorvastatin Calcium 80 MG 1 tablet Oral ly Once a day for 90 days Next Appt Details Provider Name:Jose E Hubbard, 03/12/2025 10:15:00 AM, [address] [place] [address] [place], [address], Provider Name:Jose E Hubbard, 07/17/2025 10:00:00 AM, [address] [place] [address] [place], [address], Progress Notes * Malu GARCIADOB:1955 ([age] yo F)Acc No.[id number]:09/26/2024 Patient: Malu BOJORQUEZ :1955 A ge:68 Y S ex:Female Address:[address] [place] [facility] [address] * Refills Refill Atorvastatin Calcium Tablet, 80 MG, Orally, 90 Tablet, 1 tablet, Once a day, 90 days, Refills=3 * true * Date: Generated for Michael junior/Kiko/Petra on: 0 01/31/2025 12:22 PM EDT
--- OUTSIDE RECORDS SUMMARY | 2024-10-11 06:00 | XMS_ITS ---
Author Organization Jose E Hubbard III, MD Address [address] [place] [address] [address] [place] [address] Care Team Providers Care Bread Jockey Name Role Phone Jose E Hubbard Primary Care Provider [phone] Allergies Allergen (clinical drug ingredient) Drug/Non Drug [...] Provider Diagnosis Jose E Hubbard III, MD [address] [place] [address] [place] [address] 10/11/2024 Jose E Hubbard Essential hypertensi on [...] 2 Months, Reason: OV Provider Name:Jose E Hubbard, 03/12/2025 10:15:00 AM, [address] [place] [address] [address], [place], [address], Provider Name:Jose E Hubbard, 07/17/2025 10:00:00 AM, [address] [place] [address] [address], [place], [address], Progress Notes * Malu GARCIADOB:1955 ([age] yo F)Acc No.[id number]:10/11/2024 Progress Notes Patient: Malu BOJORQUEZ Provider: Una Hubbard MD :1955 A ge:68 Y S ex:Female Date:10/11/2024 Address:[address] [place], [place] [address]PRASAD Wenceslao [id number] Subjective: * Chief Complaints: * H ypertensionHistory [...] History: * Surgical History: N egative colonoscopy, [facility], Dr. York 03/2022 * [...] E x-cigarette smoker S he lives in [place]. She was born in [place], [place]. She has been since 1997 and [...] AM Order Date 10/04/2024 09/27/2024 09/13/2024 09/06/2024 5 08/07/2024 08/01/2024 07/18/2024 Prothrombin Time Whole Bld POC 38.7 H (Ref Range: 11.1-13.5 sec) 38.7 H (Ref Range: 11.1-13.5 sec) 36.2 H (Ref Range: 11.1-13.5 sec) 53.6 H (Ref Range: 11.1-13.5 sec) 33.4 H (Ref Range: 11.1-13.5 sec) 29.5 H (Ref Range: 11.1-13.5 sec) 20.4 H (Ref Range: 11.1-13.5 sec) 24.5 H (Ref Range: 11.1-13.5 sec) * Lab:[facility] * Collection Date 10/04/2024 02/08/2024 07/07/2023 [...] Examination: G eneral Examination: GENERAL APPEARANCE: p jessi, well nourished, well developed, in no acute [...] 0 10/11/2024 Generated for Printi ng/Faanjumg/eTransmitting on: 0 01/31/2025 12:23 PM EDT History and Physical Notes * [...]
--- OUTSIDE RECORDS SUMMARY | 2024-10-30 09:30 | XMS_ITS ---
Author Organization Jose E Hubbard III, MD Address [address] [place] [address] [address] [place] [address] Care Team Providers Care Audit Spec Name Role Phone Jose E Hubbard Primary [...] Problem Status W/U Status Risk Notes Problem [id number] Acute abdominal pain (R10.9) Active confirmed Pain is mild and has been present for only 24 hours. She is able to eat and drink. She has had no nausea vomiting or diarrhea. If she worsens she'll return to the emergency room. I began an antibiotic. Encounters Encounter Location Date Provider Diagnosis Jose E Hubbard III, MD [address] [place] [address] [place] [address] 10/30/2024 Jose E Hubbard Essential hypertensi on [...] Scheduled, Sabra son: OV Provider Name:Jose E Hubbard, 03/12/2025 10:15:00 AM, [address] [place] [address] [address], [place], [address], Provider Name:Jose E Hubbard, 07/17/2025 10:00:00 AM, [address] [place] [address] [address], [place], [address], Progress Notes * Elmer GARCIA:1955 ([age] yo F)Acc No.[id number]:10/30/2024 Patient: Malu BOJORQUEZ Provider: Una Hubbard MD :1955 A ge:69 Y S ex:Female Date:10/30/2024 [facility] [id number] Subjective: * Chief Complaints: * A bdominal [...] of provider rendering services: { ...} [address] [facility] [address] [facility] [address] L ocation of patient: mac rodriguezess listed in demographics for today's visit P atient identification confirmed using: N milka, JANNIE T elehealth method: T elephone only. Patient not [...] History: * Surgical History: N egative colonoscopy, [facility], Dr. York 03/2022 * Hospitalization/Major Diagno stic Procedure: sondra grady 07/05 * Family History: F ather: 50 [...] E x-cigarette smoker S he lives in [place]. She was born in [place]. She has been since 1997 and [...] 0 10/30/2024 Generated for Michael junior/Kiko/Eugenieitting on: 0 01/31/2025 12:21 PM EDT History and Physical Notes * HPI (History of Present Illness) Category Sub-Category Detail Notes [facility] services:: {...} [address] [place] [address] [address] [place] [address] Location of patient:: address listed in demographics [...]
--- OUTSIDE RECORDS SUMMARY | 2024-11-14 05:22 | XMS_ITS ---
Author Organization Jose E Hubbard III, MD Address [address] [place] [address] [place] [address] Care Team Providers Care Life Science Teacher Name Role Phone Jose E Hubbard Primary [...] Diagnosis Jose E Hubbard III, MD [address] [place] [address] [place] [address] 11/14/2024 Jose E Hubbard Essential hypertensi on [...] Provider Name:Jose E Hubbard, 03/12/2025 10:15:00 AM, [address] [place] [address] [place], [address], Provider Name:Jose E Hubbard, 07/17/2025 10:00:00 AM, [address] [place] [address] [place], [address], Progress Notes * Elmer GARCIA:1955 ([age] yo F)Acc No.[id number]:11/14/2024 Patient: Malu BOJORQUEZ :1955 A ge:69 Y S ex:Female Address:[address] [place] [phone] * Refills Refill Warfarin Sodium Tablet, 4 MG, Orally, 90 Tablet, 1 tablet, Once a day, 90 days, Refills=3 * true * Date: Generated for Michael junior/Kiko/Vonsmitting on: 0 01/31/2025 12:22 PM EDT
--- OUTSIDE RECORDS SUMMARY | 2024-12-06 06:00 | XMS_ITS ---
Author Organization Jose E Hubbard III, MD Address [address] [place] [address] [address] [facility] [place] [address] Care Team Providers Care Software Computer Specialist Name Role Phone Jose E Hubbard [...] Problem Status W/U Status Risk Notes Problem [id number] Encounter for screening mammogram for malignant neoplasm [...] Diagnosis Jose E Hubbard III, MD [address] [place] [address] [place] [address] 12/06/2024 Jose E Hubbard Essential hypertensi on [...] Provider Name:Jose E Hubbard, 03/12/2025 10:15:00 AM, [address] [place] [address] [address], [place], [address], Provider Name:Jose E Hubbard, 07/17/2025 10:00:00 AM, [address] [place] [address] [address], [place], [address], Progress Notes * Mini GARCIAB:1955 ([age] yo F)Acc No.[id number]:12/06/2024 Progress Notes Patient: Malu BOJORQUEZ Provider: Una Hubbard MD :1955 A ge:69 Y S ex:Female Date:12/06/2024 Address:[address] [place] [address], [phone] Subjective: * Chief Complaints: * H istory [...] History: * Surgical History: N egative colonoscopy, [facility], Dr. York 03/2022 * Hospitalization/Major [...] E x-cigarette smoker S he lives in [place]. She was born in [place]. She has been since 1997 and [...] mg/dL) 166 (Ref Range: mg/dL) * Lab:Comprehensive [place]. Pane l Fast * Collection Date 10/04/2024 [...] Date: 12/06/2024 Generated for Michael junior/Kiko/Eugenieitting on: 01/31/2025 12:22 PM EDT History and Physical Notes * [...]
[2025-01-31 10:29] LABS: Prothrombin Time Whole Bld POC 41.7 sec (11.1-13.5); ~PT, ~INR - Anti Coag Clinic 3.5 (0.9-1.1)
--- NOTE | 2025-01-31 10:29 | MHC.OFFVISCO ---
Intake Intake Visit Reasons: Anticoagulation Allergies acetaminophen (Percocet) Allergy (Severe, Verified 01/31/25 10:22) ITCHY RASH oxycodone (Percocet) Allergy (Severe, Verified 01/31/25 10:22) Itching Penicillins (PENICILLINS) Allergy (Intermediate, Verified 01/31/25 10:22) itchy rash naproxen (NAPROXEN) Allergy (Unknown, Verified 01/31/25 10:22) STOMACH PAIN Medication List - Last Reconciled 01/31/25 by Ana Maria Mccullough RN acetaminophen ER mg PO atorvastatin 80 mg PO DAILY bisacodyl 10 mg PO BEDTIME chlorhexidine gluconate 0.12% PO docusate sodium 100 mg PO BEDTIME fluoxetine 20 mg PO DAILY gabapentin 100 mg PO DAILY metformin 500 mg PO DAILY metoprolol tartrate 25 mg PO BID omeprazole 20 mg PO DAILY warfarin 4 mg See Protocol PO DAILY Nursing Note INR 3.5-?? out of therapeutic range 2-3 Medications and supplements reviewed Patient status: pt to acs via wc with brother Medications or supplements: no changes Diet: had fresh tomatoes and grapes Denies any signs and symptoms of bleeding or clotting or unusual bruising Bleeding, bruising, clotting discussed Nutritional guidance given: eat greens to lower Dose: none today, then cont reg 4mg x 2, 2mg x 5 F/U INR Date : req one week?? Patient verbalizing understanding of instructions given. 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
--- OUTSIDE RECORDS SUMMARY | 2025-01-31 12:21 | XMS_ITS | Patient Health Record ---
Author Organization [facility] Address [address] [place] [address] Care Team Providers Care Legislative Correspondent Name Role Phone Jose E Hubbard MD Primary Care Provider UnavailKhadar Payne Unavailable [phone] Allergies Allergen (clinical drug ingredient) Drug/Non Drug [...] Omeprazole 20 MG take 1 capsule by [facility] twice a day 30 MINUTES PRIOR TO BREAKFAST AND SUPPER Oral; Duration: 30 Active Vitamin D3 400 units once daily Active Social History Tobacco use other than smoking: Question Answer Notes Are you an other tobacco user? No Problems Problem Type SNOMED Code ICD Code Onset Dates Problem Status W/U Status Risk Notes Problem Arthralgia (85707135) Arthralgia (719.40) Active confirmed Problem Disorder of joint of ankle and/or foot (190985981) Arthritis - Degenerative (719.97) Active confirmed Problem Hammer toe (263797052) Hammer toe (735.4) Active confirmed Problem Onychomycosis (097153241) Onychomycosis (110.1) Active confirmed Problem Pain in limb (68525449) Pain in Limb (729.5) Active confirmed Problem Tenosynovitis (19007884) Tenosynovitis (727.06) Active confirmed Problem Foot ulcer (75517378) Ulcer of Other Part of Foot (707.15) Active confirmed Plan Of Treatment Pending Test Test Name Order Date X ray : Foot, left 3V 12/28/2011 74719- Debride <25 sq cm 08/17/2013 Insurance Providers Payer Name Payer Address Payer Phone Subscriber Number Group Number Insured Name Patient Relationship to Insured Coverage Start Date Coverage End Date [facility] [address] [place] [address] [id number] GAYLA AIKEN Self - patient is the insured Medical (General) History Medical History History ICD Code fibromyalgia Reflux Surgical History Surgery Date(Month/Year) foot surgery 2008 hand/wrist 2007
--- OUTSIDE RECORDS SUMMARY | 2025-01-31 12:22 | XMS_ITS | Clinical Summary ---
Author Organization [employer] Address [address] [place] [address] Care Team Providers Care Buggy Ladle Tender Name Role Phone Unavailable Primary Care Provider [...] patient's age to complete this topic Insurance [facility] MEDICAID STAND ADULT
--- OUTSIDE RECORDS SUMMARY | 2025-01-31 12:23 | XMS_ITS | Clinical Summary ---
Author Organization [facility] it[facility] Address [address] [place] [address] Care Team Providers Care Phonograph Needle Tip Maker Name Role Phone Unavailable Primary Care Provider [...] 10/27/2005 Zoster Vaccines (1 of 2) 10/27/2005 Depression Screening 05/17/2024 COVID-19 Vaccine (1 - 2023-2 5 season) 2025 Influenza Vaccine (#1) 2025 RSV Immunization Adult [...] Documents on File Type Date Recorded Patient Program Specialist Expl anation Health Care Decision (hx) 07/20/2018 AD ALMA ROSA DIRECTIVE
--- OUTSIDE RECORDS SUMMARY | 2025-01-31 12:23 | XMS_ITS | Patient Health Record ---
Author Organization Jose E Hubbard III, MD Address [address] [place] [address] Care Team Providers Care Classroom Instructional Aide Name Role Phone Jose E Hubbard Primary Care Provider Allergies Allergen (clinical drug ingredient) Drug/Non Drug Allergy documented on EMR Reaction Allergy Type Onset Date Status acetaminophen / oxycodone Percocet Unknown Drug Allergy Active miconazole Monistat 3 burning Drug Allergy Activ e Results Component Value Reference Range Notes RBS/Hemocue glucose Reviewed date:02/16/2024 09:42:15 AM Interpretation: Performing Lab: Notes/Report: RBS 108 Complete Blood Count Auto Di ff Reviewed date:02/09/2024 06:31:48 AM Interpretation: Performing Lab:[facility], [address] [place] [phone] Notes/Report: White Blood Count 9.2 4.8-10.8 X10*3/uL [...] NRBC Abs Auto 0.000 0.0-0.012 X10*3/uL Comprehensive Republic. Panel Fa st Reviewed date:02/09/2024 06:31:49 AM Interpretation: Performing Lab:[facility], [address] [place] [phone] Notes/Report: Sodium 143 135-145 mmol/L Potassium 4.3 3.3-5.1 mmol/L Chloride 112 96-108 mmol/L Carbon Dioxide 24 22-29 mmol/L Anion Gap 11 12-20 Blood Urea Nitrogen 29 9-16 mg/dL Creatinine 0.78 0.5-1.4 mg/dL Estimated Glomerular Filt Rate > 60 NOTE: For -Portuguese individuals, multiply the result by 1.210. Chronic [...] Panel Reviewed date:02/09/2024 06:31:49 AM Interpretation: Performing Lab:[facility], [address] [place] [phone] Notes/Report: Triglycerides 75 <150 mg/dL Desirable Triglyceride: [...] POC Reviewed date:02/09/2024 06:31:48 AM Interpretation: Performing Lab:[facility], [address] [place] [phone] Notes/Report: PT, INR - Anti Coag Clinic 3.0 0.9-1.1 METER #: [id number] INTERNATIONAL NORMALIZED RATIO (INR) REFERENCE RANGES Reference [...] OC Reviewed date:02/09/2024 06:31:48 AM Interpretation: Performing Lab:[facility], [address] [place] [phone] Notes/Report: Prothrombin Time Whole Bld POC 36.0 11.1-13.5 sec Hemoglobin A1c Reviewed date:02/09/2024 06:31:48 AM Interpretation: Performing Lab:[facility], [address] [place] [phone] Notes/Report: Hemoglobin A1c % 7.5 <6.0 % [...] average glucose, using the formula of the A8O-Aqvxvup Average Glucose study (ADAG), Diabetes Care, Vol.31,#8, 2007 INR WHOLE BLOOD POC Reviewed date:02/23/2024 11:26:27 AM Interpretation: Performing Lab:[facility], [address] [place] [phone] Notes/Report: PT, INR - Anti Coag Clinic 2.4 0.9-1.1 METER #: [id number] INTERNATIONAL NORMALIZED RATIO (INR) REFERENCE RANGES Reference [...] OC Reviewed date:02/23/2024 11:26:27 AM Interpretation: Performing Lab:[facility], [address] [place] [phone] Notes/Report: Prothrombin Time Whole Bld POC 28.8 11.1-13.5 sec INR WHOLE BLOOD POC Reviewed date:03/14/2024 03:12:08 PM Interpretation: Performing Lab:[facility], [address] [place] [phone] Notes/Report: PT, INR - Anti Coag Clinic 2.6 0.9-1.1 METER #: [id number] INTERNATIONAL NORMALIZED RATIO (INR) REFERENCE RANGES Reference [...] OC Reviewed date:03/14/2024 03:12:08 PM Interpretation: Performing Lab:[facility], [address] [place] [phone] Notes/Report: Prothrombin Time Whole Bld POC 30.7 11.1-13.5 sec INR WHOLE BLOOD POC Reviewed date:03/28/2024 02:06:07 PM Interpretation: Performing Lab:[facility], [address] [place] [phone] Notes/Report: PT, INR - Anti Coag Clinic 2.4 0.9-1.1 METER #: [id number] INTERNATIONAL NORMALIZED RATIO (INR) REFERENCE RANGES Reference [...] OC Reviewed date:03/28/2024 02:06:07 PM Interpretation: Performing Lab:[facility], [address] [place] [phone] Notes/Report: Prothrombin Time Whole Bld POC 29.2 11.1-13.5 sec INR WHOLE BLOOD POC Reviewed date:04/04/2024 09:01:19 PM Interpretation: Performing Lab:[facility], [address] [place] [phone] Notes/Report: PT, INR - Anti Coag Clinic 2.4 0.9-1.1 METER #: [id number] INTERNATIONAL NORMALIZED RATIO (INR) REFERENCE RANGES Reference [...] OC Reviewed date:04/04/2024 09:01:19 PM Interpretation: Performing Lab:[facility], [address] [place] [phone] Notes/Report: Prothrombin Time Whole Bld POC 28.9 11.1-13.5 sec INR WHOLE BLOOD POC Reviewed date:04/24/2024 05:20:08 AM Interpretation: Performing Lab:[facility], [address] [place] [phone] Notes/Report: PT, INR - Anti Coag Clinic 2.6 0.9-1.1 METER #: [id number] INTERNATIONAL NORMALIZED RATIO (INR) REFERENCE RANGES Reference [...] OC Reviewed date:04/24/2024 05:20:08 AM Interpretation: Performing Lab:[facility], [address] [place] [phone] Notes/Report: Prothrombin Time Whole Bld POC 31.6 11.1-13.5 sec INR WHOLE BLOOD POC Reviewed date:05/12/2024 04:18:48 PM Interpretation: Performing Lab:[facility], [address] [place] [phone] Notes/Report: PT, INR - Anti Coag Clinic 1.9 0.9-1.1 METER #: [id number] INTERNATIONAL NORMALIZED RATIO (INR) REFERENCE RANGES Reference [...] OC Reviewed date:05/12/2024 04:18:48 PM Interpretation: Performing Lab:[facility], [address] [place] [phone] Notes/Report: Prothrombin Time Whole Bld POC 23.3 11.1-13.5 sec INR WHOLE BLOOD POC Reviewed date:05/29/2024 10:54:12 AM Interpretation: Performing Lab:[facility], [address] [place] [phone] Notes/Report: PT, INR - Anti Coag Clinic 2.4 0.9-1.1 METER #: [id number] INTERNATIONAL NORMALIZED RATIO (INR) REFERENCE RANGES Reference [...] OC Reviewed date:05/29/2024 10:54:12 AM Interpretation: Performing Lab:[facility], [address] [place] [phone] Notes/Report: Prothrombin Time Whole Bld POC 29.1 11.1-13.5 sec INR WHOLE BLOOD POC Reviewed date:06/19/2024 06:09:47 PM Interpretation: Performing Lab:[facility], [address] [place] [phone] Notes/Report: PT, INR - Anti Coag Clinic 2.2 0.9-1.1 METER #: [id number] INTERNATIONAL NORMALIZED RATIO (INR) REFERENCE RANGES Reference [...] OC Reviewed date:06/19/2024 06:09:47 PM Interpretation: Performing Lab:[facility], [address] [place] [phone] Notes/Report: Prothrombin Time Whole Bld POC 26.9 11.1-13.5 sec INR WHOLE BLOOD POC Reviewed date:06/28/2024 09:04:14 AM Interpretation: Performing Lab:[facility], [address] [place] [phone] Notes/Report: PT, INR - Anti Coag Clinic 2.6 0.9-1.1 METER #: [id number] INTERNATIONAL NORMALIZED RATIO (INR) REFERENCE RANGES Reference [...] OC Reviewed date:06/28/2024 09:04:14 AM Interpretation: Performing Lab:[facility], [address] [place] [phone] Notes/Report: Prothrombin Time Whole Bld POC 31.7 11.1-13.5 sec INR WHOLE BLOOD POC Reviewed date:08/01/2024 12:17:16 PM Interpretation: Performing Lab:[facility], [address] [place] [phone] Notes/Report: PT, INR - Anti Coag Clinic 2.0 0.9-1.1 METER #: [id number] INTERNATIONAL NORMALIZED RATIO (INR) REFERENCE RANGES Reference [...] OC Reviewed date:08/01/2024 12:17:17 PM Interpretation: Performing Lab:[facility], [address] [place] [phone] Notes/Report: Prothrombin Time Whole Bld POC 24.5 11.1-13.5 sec INR WHOLE BLOOD POC Reviewed date:08/01/2024 12:17:16 PM Interpretation: Performing Lab:[facility], [address] [place] [phone] Notes/Report: PT, INR - Anti Coag Clinic 1.7 0.9-1.1 METER #: [id number] INTERNATIONAL NORMALIZED RATIO (INR) REFERENCE RANGES Reference [...] OC Reviewed date:08/01/2024 12:17:16 PM Interpretation: Performing Lab:[facility], [address] [place] [phone] Notes/Report: Prothrombin Time Whole Bld POC 20.4 11.1-13.5 sec INR WHOLE BLOOD POC Reviewed date:08/07/2024 10:48:30 AM Interpretation: Performing Lab:[facility], [address] [place] [phone] Notes/Report: PT, INR - Anti Coag Clinic 2.5 0.9-1.1 METER #: [id number] INTERNATIONAL NORMALIZED RATIO (INR) REFERENCE RANGES Reference [...] OC Reviewed date:08/07/2024 10:48:30 AM Interpretation: Performing Lab:[facility], [address] [place] [phone] Notes/Report: Prothrombin Time Whole Bld POC 29.5 11.1-13.5 sec INR WHOLE BLOOD POC Reviewed date:08/24/2024 08:14:12 PM Interpretation: Performing Lab:[facility], [address] [place] [phone] Notes/Report: PT, INR - Anti Coag Clinic 2.8 0.9-1.1 METER #: [id number] INTERNATIONAL NORMALIZED RATIO (INR) REFERENCE RANGES Reference [...] OC Reviewed date:08/24/2024 08:14:12 PM Interpretation: Performing Lab:[facility], [address] [place] [phone] Notes/Report: Prothrombin Time Whole Bld POC 33.4 11.1-13.5 sec INR WHOLE BLOOD POC Reviewed date:09/13/2024 03:54:56 PM Interpretation: Performing Lab:[facility], [address] [place] [phone] Notes/Report: PT, INR - Anti Coag Clinic 4.5 0.9-1.1 METER #: [id number] INTERNATIONAL NORMALIZED RATIO (INR) REFERENCE RANGES Reference [...] OC Reviewed date:09/13/2024 03:54:56 PM Interpretation: Performing Lab:[facility], [address] [place] [phone] Notes/Report: Prothrombin Time Whole Bld POC 53.6 11.1-13.5 sec INR WHOLE BLOOD POC Reviewed date:09/13/2024 03:54:56 PM Interpretation: Performing Lab:[facility], [address] [place] [phone] Notes/Report: PT, INR - Anti Coag Clinic 3.0 0.9-1.1 METER #: [id number] INTERNATIONAL NORMALIZED RATIO (INR) REFERENCE RANGES Reference [...] OC Reviewed date:09/13/2024 03:54:56 PM Interpretation: Performing Lab:[facility], [address] [place] [phone] Notes/Report: Prothrombin Time Whole Bld POC 36.2 11.1-13.5 sec INR WHOLE BLOOD POC Reviewed date:09/27/2024 11:28:44 AM Interpretation: Performing Lab:[facility], [address] [place] [phone] Notes/Report: PT, INR - Anti Coag Clinic 3.2 0.9-1.1 METER #: [id number] INTERNATIONAL NORMALIZED RATIO (INR) REFERENCE RANGES Reference [...] OC Reviewed date:09/27/2024 11:28:44 AM Interpretation: Performing Lab:[facility], [address] [place] [phone] Notes/Report: Prothrombin Time Whole Bld POC 38.7 11.1-13.5 sec Complete Blood Count Auto Di ff Reviewed date:10/05/2024 05:27:32 AM Interpretation: Performing Lab:[facility], [address] [place] [phone] Notes/Report: White Blood Count 7.6 4.8-10.8 X10*3/uL [...] NRBC Abs Auto 0.000 0.0-0.012 X10*3/uL Comprehensive Republic. Panel Fa st Reviewed date:10/05/2024 05:27:32 AM Interpretation: Performing Lab:[facility], [address] [place] [phone] Notes/Report: Sodium 144 135-145 mmol/L Potassium 4.2 [...] Panel Reviewed date:10/05/2024 05:27:32 AM Interpretation: Performing Lab:[address] [phone] Notes/Report: Triglycerides 61 <150 mg/dL Desirable Triglyceride: [...] Random Reviewed date:10/05/2024 05:27:32 AM Interpretation: Performing Lab:[address] [phone] Notes/Report: Creatinine Urine 132.65 Microalbumin Urine 13.0 Microalbum/Creatinine Ratio Ur 9.8 <30 ug/mg cr Albumin/Creatinine Ratio Reference Ranges: Normal: < 30 ug/mg creatinine Microalbuminuria: 30 - 300 ug/mg creatinine Clinical Albuminuria: > 300 ug/mg creatinine INR WHOLE BLOOD POC Reviewed date:10/05/2024 05:27:32 AM Interpretation: Performing Lab:[facility], [address] [place] [phone] Notes/Report: PT, INR - Anti Coag Clinic 3.2 0.9-1.1 METER #: [id number] INTERNATIONAL NORMALIZED RATIO (INR) REFERENCE RANGES Reference [...] OC Reviewed date:10/05/2024 05:27:32 AM Interpretation: Performing Lab:[facility], [address] [place] [phone] Notes/Report: Prothrombin Time Whole Bld POC 38.7 11.1-13.5 sec Hemoglobin A1c Reviewed date:10/05/2024 05:27:32 AM Interpretation: Performing Lab:[facility], [address] [place] [phone] Notes/Report: Hemoglobin A1c % 7.3 <6.0 % [...] average glucose, using the formula of the [id number]-Xyzhxbv Average Glucose study (ADAG), Diabetes Care, Vol.31,#8, 2007 INR WHOLE BLOOD POC Reviewed date:10/20/2024 01:43:10 PM Interpretation: Performing Lab:[address] [phone] Notes/Report: PT, INR - Anti Coag Clinic 3.5 0.9-1.1 METER #: [id number] INTERNATIONAL NORMALIZED RATIO (INR) REFERENCE RANGES Reference [...] OC Reviewed date:10/20/2024 01:43:10 PM Interpretation: Performing Lab:[address] [phone] Notes/Report: Prothrombin Time Whole Bld POC 42.2 11.1-13.5 sec INR WHOLE BLOOD POC Reviewed date:11/01/2024 11:06:36 AM Interpretation: Performing Lab:[facility], [address] [place] [phone] Notes/Report: PT, INR - Anti Coag Clinic 2.3 0.9-1.1 METER #: [id number] INTERNATIONAL NORMALIZED RATIO (INR) REFERENCE RANGES Reference [...] OC Reviewed date:11/01/2024 11:06:36 AM Interpretation: Performing Lab:[address] [phone] Notes/Report: Prothrombin Time Whole Bld POC 27.6 11.1-13.5 sec INR WHOLE BLOOD POC Reviewed date:11/22/2024 01:44:56 PM Interpretation: Performing Lab:[address] [phone] Notes/Report: PT, INR - Anti Coag Clinic 2.0 0.9-1.1 METER #: [id number] INTERNATIONAL NORMALIZED RATIO (INR) REFERENCE RANGES Reference [...] OC Reviewed date:11/22/2024 01:44:56 PM Interpretation: Performing Lab:[facility], [address] [place] [phone] Notes/Report: Prothrombin Time Whole Bld POC 24.0 11.1-13.5 sec INR WHOLE BLOOD POC Reviewed date:12/20/2024 12:42:36 PM Interpretation: Performing Lab:[facility], [address] [place] [phone] Notes/Report: PT, INR - Anti Coag Clinic 3.3 0.9-1.1 METER #: [id number] INTERNATIONAL NORMALIZED RATIO (INR) REFERENCE RANGES Reference [...] OC Reviewed date:12/20/2024 12:42:36 PM Interpretation: Performing Lab:[facility], [address] [place] [phone] Notes/Report: Prothrombin Time Whole Bld POC 39.7 11.1-13.5 sec INR WHOLE BLOOD POC Reviewed date:01/07/2025 05:06:41 AM Interpretation: Performing Lab:[facility], [address] [place] [phone] Notes/Report: PT, INR - Anti Coag Clinic 3.0 0.9-1.1 METER #: [id number] INTERNATIONAL NORMALIZED RATIO (INR) REFERENCE RANGES Reference [...] OC Reviewed date:01/07/2025 05:06:41 AM Interpretation: Performing Lab:[facility], [address] [place] [phone] Notes/Report: Prothrombin Time Whole Bld POC 35.8 11.1-13.5 sec INR WHOLE BLOOD POC Reviewed date:01/18/2025 11:11:48 AM Interpretation: Performing Lab:[facility], [address] [place] [phone] Notes/Report: PT, INR - Anti Coag Clinic 2.1 0.9-1.1 METER #: [id number] INTERNATIONAL NORMALIZED RATIO (INR) REFERENCE RANGES Reference [...] Prothrombin Time Whole Bld P OC Reviewed date:01/18/2025 11:11:48 AM Interpretation: Performing Lab:[facility], [address] [place] [phone] Notes/Report: Prothrombin Time Whole Bld POC 25.2 11.1-13.5 sec INR WHOLE BLOOD POC (Not yet reviewed by provider) Interpretation: Performing Lab:[facility], [address] [place] [phone] Notes/Report: PT, INR - Anti Coag Clinic 3.5 0.9-1.1 METER #: [id number] INTERNATIONAL NORMALIZED RATIO (INR) REFERENCE RANGES Reference [...] (Not yet reviewed by provider) Interpretation: Performing Lab:[facility], [address] [place] [phone] Notes/Report: Prothrombin Time Whole Bld POC 41.7 11.1-13.5 sec Reason For Referral No Information Medications Medication SIG (Take, Route, Frequency, Duration) Notes Start Date End Date Status Warfarin Sodium 4 MG 1 tablet Orally Onc e a day Active Atorvastatin Calcium 80 MG 1 tablet Oral ly Once a day Active FLUoxetine HCl 20 MG 1 capsule Orally On ce a day Active Omeprazole 20 MG TAKE 1 CAPSULE 30 MT NUTES BEFORE MORNING MEAL ORALLY ONCE A [...] Problem Status W/U Status Risk Notes Problem 2787683 Former smoker (Z87.891) Active confirmed He is unable to obtain cigarettes. She does not smoke since his stroke. She says she does not want to. Problem 78830152 Fibromyalgia (M79.7) Active confirmed Fibromyalgia lately has been low-grade she lives with a without a great deal difficulty. No medical therapies necessary. Problem Hyperglycemia (60530834) Hyperglycemia (R73.9) Active confirmed Problem 347548572 Gastro-esophagea l reflux disease without esophagitis (K21.9) Active confirmed She will continue on omeprazole and liquid antacid as needed. Problem 084431867 Encounter for screening mammogram for malignant neoplasm of breast (Z12.31) Active confirmed RI annual mammogram has been scheduled. Problem 31606079 Essential hypertension (I10) Active confirmed Low The most recent blood pressure was within normal limits and no change in her regimen was necessary. Problem 116683960 Anticoagulation adequate (Z79.01) Active confirmed She has had no bleeding and is compliant with her therapy. Problem CVA - Cerebrovascular accident (896481558) CVA (cerebral vascular accident) (I63.9) Active confirmed She is currently anticoagulated because of the stroke. She has a dense right hemiplegia, but no further neurological symptoms. She is awake and alert and responsive to questions. Her speech is fluent. Problem 751716381 Morbid obesity (E66.01) Active confirmed He discussed her overweight status. We discussed diet and nutrition. We made plans for her to lose weight at a rate of one half of a pound per week. Problem 681324677 Gallstones (K80.20) Active confirmed She remains free of symptoms from her cholelithiasis. Problem Right hemiplegia (593930493) Right hemiplegia (G81.91) Active confirmed There has been no change in the weakness of the right arm and leg. She remains confined to a wheelchair. The weakness in the right arm is dense. Problem 875726816 Type 2 diabetes mellitus without complication, without long-term current use of insulin (E11.9) Active confirmed Her hemoglob in A1c is 7.3. She has lost 3 pounds. We discussed continued weight loss through diet. No change in her medications was necessary. Problem 354406868 Acute abdominal pain (R10.9) Active confirmed Pain [...] Provider Diagnosis Jose E Hubbard III, MD [address] [place] [address] [place] [phone] 02/16/2024 Jose E Hubbard Essential hypertensi on I10 ; DM (diabetes mellitus) E11.9 ; Fibromyalgia M79.7 ; Gastro-esophageal reflux disease without esophagitis K21.9 ; CVA (cerebral vascular accident) I63.9 ; Anticoagulation adequate Z79.01 ; Right hemiplegia G81.91 ; Former smoker Z87.891 and Obesity (BMI 30-39.9) E66.9 Jose E Hubbard III, MD [address] [place] [address] [place] [address] 07/14/2024 Jose E Hubbard Essential hypertensi on I10 ; CVA (cerebral vascular accident) I63.9 ; Gastro-esophageal reflux disease without esophagitis K21.9 ; Anticoagulation adequate Z79.01 ; Former smoker Z87.891 ; Fibromyalgia M79.7 and Right hemiplegia G81.91 Jose E Hubbard III, MD [address] [place] [address] [place] [phone] 10/11/2024 Jose E Hubbard Essential hypertensi on I10 ; CVA (cerebral vascular accident) I63.9 ; Fibromyalgia M79.7 ; Right hemiplegia G81.91 ; Former smoker Z87.891 ; Anticoagulation adequate Z79.01 ; Type 2 diabetes mellitus without complication, without long-term current use of insulin E11.9 and Obesity (BMI 30-39.9) E66.9 Jose E Hubbard III, MD [address] [place] [address] [place] [phone] 10/30/2024 Jose E Hubbard Essential hypertensi on I10 ; Acute abdominal pain R10.9 ; Anticoagulation adequate Z79.01 ; CVA (cerebral vascular accident) I63.9 ; Gastro-esophageal reflux disease without esophagitis K21.9 ; Fibromyalgia M79.7 ; Type 2 diabetes mellitus without complication, without long-term current use of insulin E11.9 ; Right hemiplegia G81.91 and Former smoker Z87.891 Jose E Hubbard III, MD [address] [place] [address] [place] [phone] 12/06/2024 Jose E Hubbard Essential hypertensi on [...] Fibromyalgia M79.7 Jose E Hubbard III, MD [address] [place] [address] [place] [phone] 03/17/2024 Jose E Hubbard III, MD [address] [place] [address] [place] [phone] 07/25/2024 Jose E Hubbard III, MD [address] [place] [address] [place] [phone] 07/25/2024 Jose E Hubbard III, MD [address] [place] [address] [place] [phone] 09/20/2024 Jose E Hubbard Essential hypertensi on I10 Jose E Hubbard III, MD [address] [place] [address] [place] [phone] 09/26/2024 Jose E Hubbard III, MD [address] [place] [address] [place] [address] 11/14/2024 Jose E Hubbard Essential hypertensi on I10 Assessments Encounter Date Diagnosis (ICD Code) Assessment Notes Treat ment Notes Treatment Clinical Notes 02/16/2024 DM (diabetes mellitus) (ICD-10 - E11.9) [...] change in her regimen was necessary. 02/16/2024 Fibromyalgia (ICD-10 - M79.7) Fibromyalgia lately [...] No change in her medications was necessary. 02/16/2024 Gastro-esophageal reflux disease without esophagitis [...] Z12.31) [place] annual mammogram has been scheduled. 02/16/2024 CVA (cerebral vascular accident) (ICD-10 - [...] says she does not want to. 02/16/2024 Anticoagulation adequate (ICD-10 - Z79.01) She [...] omeprazole and liquid antacid as needed. 02/16/2024 Right hemiplegia (ICD-10 - G81.91) There [...] and is compliant with her therapy. 02/16/2024 Former smoker (ICD-1 0 - Z87.891) [...] in the right arm is dense. 02/16/2024 Obesity (BMI 30-39.9 ) (ICD-10 - [...] Microalbumin, Random 07/14/2024 INR WHOLE BLOOD POC 01/31/2025 Prothrombin Time Whole Bld POC T Spot TB 08/04/2022 MM tomosynthesis screening BI 12/06/2024 US abdomen complete 07/08/2022 Hemoglobin A1c 12/06/2024 Hemoglobin A1c 07/14/2024 Next Appt Details Provider Name:Jose E Rodriguezrne, 03/12/2025 10:15:00 AM, [address] [place] [address] [address], [place], [phone], Provider Name:Jose E Rodriguezrne, 07/17/2025 10:00:00 AM, [address] [place] [address] [address], [place], [phone], Insurance Providers Payer Name Payer Address Payer Phone Subscriber Number Group Number Insured Name Patient Relationship to Insured Coverage Start Date Coverage End Date MEDICARE NGS [address] [place] [address] [id number] Jose Malu Self - patient is the insured MED[place] [address] [place], [place] [id number] JoseMalu Self - patient is the insured [...]
== END 2025-01-31 10:59 | disposition home or self-care (01) ==
LOC: HO.ACS 10:10
PROVIDERS: PCP Internal Medicine Medical Oncology; Visit Provider Internal Medicine Medical Oncology
DX: Z79.01 Long term (current) use of anticoagulants (principal)

== ENCOUNTER → 2025-01-31 10:10 | Outpatient (BNVA) | payer MEDICARE, MEDICAID, SELFPAY | PROVIDERS: PCP Internal Medicine Medical Oncology; Visit Provider Internal Medicine Medical Oncology | DX: Z51.81 Encounter for therapeutic drug level monitoring (principal); Z79.01 Long term (current) use of anticoagulants | CPT/HCPCS: 85610; 99211 ==

== ENCOUNTER 2025-02-07 10:13 | Outpatient (AMB) | payer MEDICARE, MEDICAID, SELFPAY ==
--- OUTSIDE RECORDS SUMMARY | 2024-10-11 06:00 | XMS_ITS ---
Author Organization Jose E Hubbard III, MD Address [address] [place] [address] [address] [place] [address] Care Team Providers Care Rewinder Name Role Phone Dr. Jose E Hubbard III Primary Care Provider [phone] Allergies Allergen (clinical drug ingredient) Drug/Non Drug [...] Provider Diagnosis Jose E Hubbard III, MD [address] [place] [address] [facility] [place] [address] 10/11/2024 Jose E Hubbard Essential hypertensi on [...] Reason: OV Provider Name:Jose E Hubbard , 03/12/2025 10:15:00 AM, [address] [place] [address] [address], [place], [address], Provider Name:Jose E Hubbard , 07/17/2025 10:00:00 AM, [address] [place] [address] [address], [place], [address], Progress Notes * Malu GARCIADOB:1955 ([age] yo F)Acc No.[id number]:10/11/2024 Progress Notes Patient: Malu BOJORQUEZ Provider: Una Hubbard MD :1955 A ge:68 Y S ex:Female Date:10/11/2024 Address:[address] [place] [address] FERNIE Wenceslao [id number] Subjective: * Chief Complaints: * H ypertensionHistory [...] History: * Surgical History: N egative colonoscopy, [facility], Dr. York 03/2022 * Hospitalization/Major Diagno [...] E x-cigarette smoker S he lives in [place]. She was born in [place]. She has been since 1997 and [...] 10/11/2024 Generated for Printi ng/Faanjumg/eTransmitting on: 0 02/07/2025 12:34 PM EDT History and Physical Notes * [...]
--- OUTSIDE RECORDS SUMMARY | 2024-10-30 09:30 | XMS_ITS ---
Author Organization Jose E Hubbard III, MD Address [address] [place] [address] [address] [place] [address] Care Team Providers Care Furniture Repair Technician Name Role Phone Dr. Jose E Hubbard [...] Problem Status W/U Status Risk Notes Problem [id number] Acute abdominal pain (R10.9) Active confirmed Pain is mild and has been present for only 24 hours. She is able to eat and drink. She has had no nausea vomiting or diarrhea. If she worsens she'll return to the emergency room. I began an antibiotic. Encounters Encounter Location Date Provider Diagnosis Jose E Hubbard III, MD [address] [place] [address] [place] [address] 10/30/2024 Jose E Hubbard Essential hypertensi on [...] son: OV Provider Name:Jose E Hubbard , 03/12/2025 10:15:00 AM, [address] [place] [address] [address], [place], [address], Provider Name:Jose E Hubbard , 07/17/2025 10:00:00 AM, [address] [place] [address] [address], [place], [address], Progress Notes * Elmer GARCIA:1955 ([age] yo F)Acc No.[id number]:10/30/2024 Patient: Malu BOJORQUEZ Provider: Una Hubbard MD :1955 A ge:69 Y S ex:Female Date:10/30/2024 Address:[address] [place], [place] [address]YEN [id number] Subjective: * Chief Complaints: * A bdominal [...] ocation of provider rendering services: { ...} [address] [place] [address] [address] [facility] [address] L ocation of patient: mac ddress listed in demographics for today's visit P atient identification confirmed using: JANNIE Frank ame T elehealth method: T elephone only. Patient [...] History: * Surgical History: N egative colonoscopy, [facility], Dr. York 03/2022 * Hospitalization/Major [...] E x-cigarette smoker S he lives in [place]. She was born in [place]. She [...] 10/30/2024 Generated for Michael junior/Kiko/Eugenieitting on: 0 02/07/2025 12:33 PM EDT History and Physical Notes * HPI (History of Present Illness) Category Sub-Category Detail Notes Telehealth Location of [facility] rendering services:: {...} [address] [place] [address] [place] [address] Location of patient:: address listed in demographics [...]
--- OUTSIDE RECORDS SUMMARY | 2024-11-14 05:22 | XMS_ITS ---
Author Organization Jose E Hubbard III, MD Address [address] [place] [address] [place] [address] Care Team Providers Care Human Resources Services Specialist Name Role Phone Dr. Jose E Hubbard [...] Diagnosis Jose E Hubbard III, MD [address] [place] [address] [place] [address] 11/14/2024 Jose E Hubbard Essential hypertensi on [...] Appt Details Provider Name:Jose E Hubbard , 03/12/2025 10:15:00 AM, [address] [place] [address] [place], [address], Provider Name:Jose E Hubbard , 07/17/2025 10:00:00 AM, [address] [place] [address] [place], [address], Progress Notes * Malu GARCIADOB:1955 ([age] yo F)Acc No.[id number]:11/14/2024 Patient: Malu BOJORQUEZ :1955 A ge:69 Y S ex:Female Address:[address] [place] [phone] * Refills Refill Warfarin Sodium Tablet, 4 MG, Orally, 90 Tablet, 1 tablet, Once a day, 90 days, Refills=3 * true * Date: Generated for Michael junior/Kiko/Eugenieitting on: 0 02/07/2025 12:33 PM EDT
--- OUTSIDE RECORDS SUMMARY | 2024-12-06 06:00 | XMS_ITS ---
Author Organization Jose E Hubbard III, MD Address [address] [place] [address] [address] [place] [address] Care Team Providers Care Railroad Dining Car Steward/Stewardess Name Role Phone Dr. Jose E Hubbard [...] Problem Status W/U Status Risk Notes Problem [id number] Encounter for screening mammogram for malignant neoplasm [...] Provider Diagnosis Jose E Hubbard III, MD [address] [place] [address] [place] [address] 12/06/2024 Jose E Hubbard Essential hypertensi on [...] Name:Jose E Hubbard , 03/12/2025 10:15:00 AM, [facility] [address], [place], [address], Provider Name:Jose E Hubbard , 07/17/2025 10:00:00 AM, [address] [facility] [address], [place], [address], Progress Notes * Malu GARCIADOB:1955 ([age] yo F)Acc No.[id number]:12/06/2024 Progress Notes Patient: Malu BOJORQUEZ Provider: Una Hubbard MD :1955 A ge:69 Y S ex:Female Date:12/06/2024 Address:[address] [place] [address] [place], [phone] Subjective: * Chief Complaints: * H istory [...] History: * Surgical History: N egative colonoscopy, [facility], Dr. York 03/2022 * Hospitalization/Major Diagno [...] E x-cigarette smoker S he lives in [place]. She was born in [place]. She [...] mg/dL) 166 (Ref Range: mg/dL) * Lab:Comprehensive [place]. Pane l Fast * Collection Date 10/04/2024 [...] Date: 12/06/2024 Generated for Michael junior/Kiko/Eugenieitting on: 02/07/2025 12:34 PM EDT History and Physical [...]
--- OUTSIDE RECORDS SUMMARY | 2025-02-05 09:20 | XMS_ITS ---
Author Organization Jose E Hubbard III, MD Address [address] [place] [address] [place] [address] Care Team Providers Care Supervisor Transcribing Operators Name Role Phone Dr. Jose E Hubbard [...] Provider Diagnosis Jose E Hubbard III, MD [address] [place] [address] [place] [address] 02/05/2025 Jose E Hubbard Essential hypertensi on [...] Name:Jose E Hubbard , 03/12/2025 10:15:00 AM, [address] [place] [address] [place], [address], Provider Name:Jose E Hubbard , 07/17/2025 10:00:00 AM, [address] [place] [address] [place], [address], Progress Notes * Elmer GARCIA:1955 ([age] yo F)Acc No.[id number]:02/05/2025 Patient: Malu BOJORQUEZ :1955 A ge:69 Y S ex:Female Address:[address] [place] [phone] * Refills Refill Gabapentin Capsule, 100 MG, Orally, 90, 1 capsule, Once a day, 90 days, Refills=3 * true * Date: Generated for Michael junior/Kiko/Eugenieitting on: 0 02/07/2025 12:34 PM EDT
[2025-02-07 10:47] LABS: Prothrombin Time Whole Bld POC 36.1 sec (11.1-13.5); ~PT, ~INR - Anti Coag Clinic 3.0 (0.9-1.1)
--- NOTE | 2025-02-07 10:56 | MHC.OFFVISCO ---
Intake Intake Visit Reasons: Anticoagulation Allergies acetaminophen (Percocet) Allergy (Severe, Verified 02/07/25 10:40) ITCHY RASH oxycodone (Percocet) Allergy (Severe, Verified 02/07/25 10:40) Itching Penicillins (PENICILLINS) Allergy (Intermediate, Verified 02/07/25 10:40) itchy rash naproxen (NAPROXEN) Allergy (Unknown, Verified 02/07/25 10:40) STOMACH PAIN Medication List - Last Reconciled 02/07/25 by Anali Louis RN acetaminophen ER mg PO atorvastatin 80 mg PO DAILY bisacodyl 10 mg PO BEDTIME chlorhexidine gluconate 0.12% PO docusate sodium 100 mg PO BEDTIME fluoxetine 20 mg PO DAILY gabapentin 100 mg PO DAILY metformin 500 mg PO DAILY metoprolol tartrate 25 mg PO BID omeprazole 20 mg PO DAILY warfarin 4 mg See Protocol PO DAILY Nursing Note NO CP,SOB,DIET/MED CHANGES,FALLS OR SX OF BLEEDING. CONTINUE PRESENT DOSE AND FOLLOW-UP IN 2 WEEKS GOOD UNDERSTANDING OF DOSING INSTR. 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
--- OUTSIDE RECORDS SUMMARY | 2025-02-07 12:33 | XMS_ITS | Patient Health Record ---
Author Organization [facility] Address [address] [place] [address] Care Team Providers Care Bird Keeper Name Role Phone Jose E Hubbard MD Primary Care Provider UnavailKhadar Payne Unavailable [phone] Allergies Allergen (clinical drug ingredient) Drug/Non Drug [...] Omeprazole 20 MG take 1 capsule by [facility] twice a day 30 MINUTES PRIOR TO BREAKFAST AND SUPPER Oral; Duration: 30 Active Vitamin D3 400 units once daily Active Social History Tobacco use other than smoking: Question Answer Notes Are you an other tobacco user? No Problems Problem Type SNOMED Code ICD Code Onset Dates Problem Status W/U Status Risk Notes Problem Arthralgia (90246939) Arthralgia (719.40) Active confirmed Problem Disorder of joint of ankle and/or foot (439835747) Arthritis - Degenerative (719.97) Active confirmed Problem Hammer toe (684392209) Hammer toe (735.4) Active confirmed Problem Onychomycosis (927774773) Onychomycosis (110.1) Active confirmed Problem Pain in limb (28205932) Pain in Limb (729.5) Active confirmed Problem Tenosynovitis (10029831) Tenosynovitis (727.06) Active confirmed Problem Foot ulcer (07634860) Ulcer of Other Part of Foot (707.15) Active confirmed Plan Of Treatment Pending Test Test Name Order Date X ray : Foot, left 3V 12/28/2011 65404- Debride <25 sq cm 08/17/2013 Insurance Providers Payer Name Payer Address Payer Phone Subscriber Number Group Number Insured Name Patient Relationship to Insured Coverage Start Date Coverage End Date [facility] [address] [place] [address] [id number] GAYLA AIKEN Self - patient is the insured Medical (General) History Medical History History ICD Code fibromyalgia Reflux Surgical History Surgery Date(Month/Year) foot surgery 2008 hand/wrist 2007
--- OUTSIDE RECORDS SUMMARY | 2025-02-07 12:34 | XMS_ITS | Patient Health Record ---
Author Organization Jose E Hubbard III, MD Address [address] [place] [address] DR MONTENEGRO [place] [address] Care Team Providers Care Vice President Regulatory Name Role Phone Dr. Jose E Hubbard [...] ff Reviewed date:02/09/2024 06:31:48 AM Interpretation: Performing Lab:[facility], [address] [place] [phone] Notes/Report: White Blood Count 9.2 4.8-10.8 X10*3/uL [...] NRBC Abs Auto 0.000 0.0-0.012 X10*3/uL Comprehensive [place]. Panel Fa st Reviewed date:02/09/2024 06:31:49 AM Interpretation: Performing Lab:[facility], [address] [place] [phone] Notes/Report: Sodium 143 135-145 mmol/L Potassium 4.3 3.3-5.1 mmol/L Chloride 112 96-108 mmol/L Carbon Dioxide 24 22-29 mmol/L Anion Gap 11 12-20 Blood Urea Nitrogen 29 9-16 mg/dL Creatinine 0.78 0.5-1.4 mg/dL Estimated Glomerular Filt Rate > 60 NOTE: For -[place] individuals, multiply the result by 1.210. Chronic [...] Panel Reviewed date:02/09/2024 06:31:49 AM Interpretation: Performing Lab:[facility], [address] [place] [phone] Notes/Report: Triglycerides 75 <150 mg/dL Desirable Triglyceride: [...] POC Reviewed date:02/09/2024 06:31:48 AM Interpretation: Performing Lab:[facility], [address] [place] [phone] Notes/Report: PT, INR - Anti Coag Clinic 3.0 0.9-1.1 METER #: [id number] INTERNATIONAL NORMALIZED RATIO (INR) REFERENCE RANGES Reference [...] OC Reviewed date:02/09/2024 06:31:48 AM Interpretation: Performing Lab:[facility], [address] [place] [phone] Notes/Report: Prothrombin Time Whole Bld POC 36.0 11.1-13.5 sec Hemoglobin A1c Reviewed date:02/09/2024 06:31:48 AM Interpretation: Performing Lab:[facility], [address] [place] [phone] Notes/Report: Hemoglobin A1c % 7.5 <6.0 % [...] average glucose, using the formula of the [id number] Average Glucose study (ADAG), Diabetes Care, Vol.31,#8, 2007 INR WHOLE BLOOD POC Reviewed date:02/23/2024 11:26:27 AM Interpretation: Performing Lab:[facility], [address] [place] [phone] Notes/Report: PT, INR - Anti Coag Clinic 2.4 0.9-1.1 METER #: [id number] INTERNATIONAL NORMALIZED RATIO (INR) REFERENCE RANGES Reference [...] OC Reviewed date:02/23/2024 11:26:27 AM Interpretation: Performing Lab:[facility], [address] [place] [phone] Notes/Report: Prothrombin Time Whole Bld POC 28.8 11.1-13.5 sec INR WHOLE BLOOD POC Reviewed date:03/14/2024 03:12:08 PM Interpretation: Performing Lab:[facility], [address] [place] [phone] Notes/Report: PT, INR - Anti Coag Clinic 2.6 0.9-1.1 METER #: [id number] INTERNATIONAL NORMALIZED RATIO (INR) REFERENCE RANGES Reference [...] OC Reviewed date:03/14/2024 03:12:08 PM Interpretation: Performing Lab:[facility], [address] [place] [phone] Notes/Report: Prothrombin Time Whole Bld POC 30.7 11.1-13.5 sec INR WHOLE BLOOD POC Reviewed date:03/28/2024 02:06:07 PM Interpretation: Performing Lab:[facility], [address] [place] [phone] Notes/Report: PT, INR - Anti Coag Clinic 2.4 0.9-1.1 METER #: [id number] INTERNATIONAL NORMALIZED RATIO (INR) REFERENCE RANGES Reference [...] OC Reviewed date:03/28/2024 02:06:07 PM Interpretation: Performing Lab:[facility], [address] [place] [phone] Notes/Report: Prothrombin Time Whole Bld POC 29.2 11.1-13.5 sec INR WHOLE BLOOD POC Reviewed date:04/04/2024 09:01:19 PM Interpretation: Performing Lab:[facility], [address] [place] [phone] Notes/Report: PT, INR - Anti Coag Clinic 2.4 0.9-1.1 METER #: [id number] INTERNATIONAL NORMALIZED RATIO (INR) REFERENCE RANGES Reference [...] OC Reviewed date:04/04/2024 09:01:19 PM Interpretation: Performing Lab:[facility], [address] [place] [phone] Notes/Report: Prothrombin Time Whole Bld POC 28.9 11.1-13.5 sec INR WHOLE BLOOD POC Reviewed date:04/24/2024 05:20:08 AM Interpretation: Performing Lab:[facility], [address] [place] [phone] Notes/Report: PT, INR - Anti Coag Clinic 2.6 0.9-1.1 METER #: [id number] INTERNATIONAL NORMALIZED RATIO (INR) REFERENCE RANGES Reference [...] OC Reviewed date:04/24/2024 05:20:08 AM Interpretation: Performing Lab:[facility], [address] [place] [phone] Notes/Report: Prothrombin Time Whole Bld POC 31.6 11.1-13.5 sec INR WHOLE BLOOD POC Reviewed date:05/12/2024 04:18:48 PM Interpretation: Performing Lab:[facility], [address] [place] [phone] Notes/Report: PT, INR - Anti Coag Clinic 1.9 0.9-1.1 METER #: [id number] INTERNATIONAL NORMALIZED RATIO (INR) REFERENCE RANGES Reference [...] OC Reviewed date:05/12/2024 04:18:48 PM Interpretation: Performing Lab:[facility], [address] [place] [phone] Notes/Report: Prothrombin Time Whole Bld POC 23.3 11.1-13.5 sec INR WHOLE BLOOD POC Reviewed date:05/29/2024 10:54:12 AM Interpretation: Performing Lab:[facility], [address] [place] [phone] Notes/Report: PT, INR - Anti Coag Clinic 2.4 0.9-1.1 METER #: [id number] INTERNATIONAL NORMALIZED RATIO (INR) REFERENCE RANGES Reference [...] OC Reviewed date:05/29/2024 10:54:12 AM Interpretation: Performing Lab:[facility], [address] [place] [phone] Notes/Report: Prothrombin Time Whole Bld POC 29.1 11.1-13.5 sec INR WHOLE BLOOD POC Reviewed date:06/19/2024 06:09:47 PM Interpretation: Performing Lab:[facility], [address] [place] [phone] Notes/Report: PT, INR - Anti Coag Clinic 2.2 0.9-1.1 METER #: [id number] INTERNATIONAL NORMALIZED RATIO (INR) REFERENCE RANGES Reference [...] OC Reviewed date:06/19/2024 06:09:47 PM Interpretation: Performing Lab:[facility], [address] [place] [phone] Notes/Report: Prothrombin Time Whole Bld POC 26.9 11.1-13.5 sec INR WHOLE BLOOD POC Reviewed date:06/28/2024 09:04:14 AM Interpretation: Performing Lab:[facility], [address] [place] [phone] Notes/Report: PT, INR - Anti Coag Clinic 2.6 0.9-1.1 METER #: [id number] INTERNATIONAL NORMALIZED RATIO (INR) REFERENCE RANGES Reference [...] OC Reviewed date:06/28/2024 09:04:14 AM Interpretation: Performing Lab:[facility], [address] [place] [phone] Notes/Report: Prothrombin Time Whole Bld POC 31.7 11.1-13.5 sec INR WHOLE BLOOD POC Reviewed date:08/01/2024 12:17:16 PM Interpretation: Performing Lab:[facility], [address] [place] [phone] Notes/Report: PT, INR - Anti Coag Clinic 2.0 0.9-1.1 METER #: [id number] INTERNATIONAL NORMALIZED RATIO (INR) REFERENCE RANGES Reference [...] OC Reviewed date:08/01/2024 12:17:17 PM Interpretation: Performing Lab:[facility], [address] [place] [phone] Notes/Report: Prothrombin Time Whole Bld POC 24.5 11.1-13.5 sec INR WHOLE BLOOD POC Reviewed date:08/01/2024 12:17:16 PM Interpretation: Performing Lab:[facility], [address] [place] [phone] Notes/Report: PT, INR - Anti Coag Clinic 1.7 0.9-1.1 METER #: [id number] INTERNATIONAL NORMALIZED RATIO (INR) REFERENCE RANGES Reference [...] OC Reviewed date:08/01/2024 12:17:16 PM Interpretation: Performing Lab:[facility], [address] [place] [phone] Notes/Report: Prothrombin Time Whole Bld POC 20.4 11.1-13.5 sec INR WHOLE BLOOD POC Reviewed date:08/07/2024 10:48:30 AM Interpretation: Performing Lab:[facility], [address] [place] [phone] Notes/Report: PT, INR - Anti Coag Clinic 2.5 0.9-1.1 METER #: [id number] INTERNATIONAL NORMALIZED RATIO (INR) REFERENCE RANGES Reference [...] OC Reviewed date:08/07/2024 10:48:30 AM Interpretation: Performing Lab:[facility], [address] [place] [phone] Notes/Report: Prothrombin Time Whole Bld POC 29.5 11.1-13.5 sec INR WHOLE BLOOD POC Reviewed date:08/24/2024 08:14:12 PM Interpretation: Performing Lab:[facility], [address] [place] [phone] Notes/Report: PT, INR - Anti Coag Clinic 2.8 0.9-1.1 METER #: [id number] INTERNATIONAL NORMALIZED RATIO (INR) REFERENCE RANGES Reference [...] OC Reviewed date:08/24/2024 08:14:12 PM Interpretation: Performing Lab:[facility], [address] [place] [phone] Notes/Report: Prothrombin Time Whole Bld POC 33.4 11.1-13.5 sec INR WHOLE BLOOD POC Reviewed date:09/13/2024 03:54:56 PM Interpretation: Performing Lab:[facility], [address] [place] [phone] Notes/Report: PT, INR - Anti Coag Clinic 4.5 0.9-1.1 METER #: [id number] INTERNATIONAL NORMALIZED RATIO (INR) REFERENCE RANGES Reference [...] OC Reviewed date:09/13/2024 03:54:56 PM Interpretation: Performing Lab:[facility], [address] [place] [phone] Notes/Report: Prothrombin Time Whole Bld POC 53.6 11.1-13.5 sec INR WHOLE BLOOD POC Reviewed date:09/13/2024 03:54:56 PM Interpretation: Performing Lab:[facility], [address] [place] [phone] Notes/Report: PT, INR - Anti Coag Clinic 3.0 0.9-1.1 METER #: [id number] INTERNATIONAL NORMALIZED RATIO (INR) REFERENCE RANGES Reference [...] OC Reviewed date:09/13/2024 03:54:56 PM Interpretation: Performing Lab:[facility], [address] [place] [phone] Notes/Report: Prothrombin Time Whole Bld POC 36.2 11.1-13.5 sec INR WHOLE BLOOD POC Reviewed date:09/27/2024 11:28:44 AM Interpretation: Performing Lab:[facility], [address] [place] [phone] Notes/Report: PT, INR - Anti Coag Clinic 3.2 0.9-1.1 METER #: [id number] INTERNATIONAL NORMALIZED RATIO (INR) REFERENCE RANGES Reference [...] OC Reviewed date:09/27/2024 11:28:44 AM Interpretation: Performing Lab:[facility], [address] [place] [phone] Notes/Report: Prothrombin Time Whole Bld POC 38.7 11.1-13.5 sec Complete Blood Count Auto Di ff Reviewed date:10/05/2024 05:27:32 AM Interpretation: Performing Lab:[facility], [address] [place] [phone] Notes/Report: White Blood Count 7.6 4.8-10.8 X10*3/uL [...] NRBC Abs Auto 0.000 0.0-0.012 X10*3/uL Comprehensive [place]. Panel Fa st Reviewed date:10/05/2024 05:27:32 AM Interpretation: Performing Lab:[facility], [address] [place] [phone] Notes/Report: Sodium 144 135-145 mmol/L Potassium 4.2 [...] Panel Reviewed date:10/05/2024 05:27:32 AM Interpretation: Performing Lab:[facility], [address] [place] [phone] Notes/Report: Triglycerides 61 <150 mg/dL Desirable Triglyceride: [...] Random Reviewed date:10/05/2024 05:27:32 AM Interpretation: Performing Lab:[facility], [address] [place] [phone] Notes/Report: Creatinine Urine 132.65 Microalbumin Urine 13.0 Microalbum/Creatinine Ratio Ur 9.8 <30 ug/mg cr Albumin/Creatinine Ratio Reference Ranges: Normal: < 30 ug/mg creatinine Microalbuminuria: 30 - 300 ug/mg creatinine Clinical Albuminuria: > 300 ug/mg creatinine INR WHOLE BLOOD POC Reviewed date:10/05/2024 05:27:32 AM Interpretation: Performing Lab:[facility], [address] [place] [phone] Notes/Report: PT, INR - Anti Coag Clinic 3.2 0.9-1.1 METER #: [id number] INTERNATIONAL NORMALIZED RATIO (INR) REFERENCE RANGES Reference [...] OC Reviewed date:10/05/2024 05:27:32 AM Interpretation: Performing Lab:[facility], [address] [place] [phone] Notes/Report: Prothrombin Time Whole Bld POC 38.7 11.1-13.5 sec Hemoglobin A1c Reviewed date:10/05/2024 05:27:32 AM Interpretation: Performing Lab:[facility], [address] [place] [phone] Notes/Report: Hemoglobin A1c % 7.3 <6.0 % [...] average glucose, using the formula of the I8D-Teiktia Average Glucose study (ADAG), Diabetes Care, Vol.31,#8, Dec. 2007 INR WHOLE BLOOD POC Reviewed date:10/20/2024 01:43:10 PM Interpretation: Performing Lab:[facility], [address] [place] [phone] Notes/Report: PT, INR - Anti Coag Clinic 3.5 0.9-1.1 METER #: [id number] INTERNATIONAL NORMALIZED RATIO (INR) REFERENCE RANGES Reference [...] OC Reviewed date:10/20/2024 01:43:10 PM Interpretation: Performing Lab:[facility], [address] [place] [phone] Notes/Report: Prothrombin Time Whole Bld POC 42.2 11.1-13.5 sec INR WHOLE BLOOD POC Reviewed date:11/01/2024 11:06:36 AM Interpretation: Performing Lab:[facility], [address] [place] [phone] Notes/Report: PT, INR - Anti Coag Clinic 2.3 0.9-1.1 METER #: [id number] INTERNATIONAL NORMALIZED RATIO (INR) REFERENCE RANGES Reference [...] OC Reviewed date:11/01/2024 11:06:36 AM Interpretation: Performing Lab:[address] [phone] Notes/Report: Prothrombin Time Whole Bld POC 27.6 11.1-13.5 sec INR WHOLE BLOOD POC Reviewed date:11/22/2024 01:44:56 PM Interpretation: Performing Lab:[facility], [address] [place] [phone] Notes/Report: PT, INR - Anti Coag Clinic 2.0 0.9-1.1 METER #: [id number] INTERNATIONAL NORMALIZED RATIO (INR) REFERENCE RANGES Reference [...] OC Reviewed date:11/22/2024 01:44:56 PM Interpretation: Performing Lab:[facility], [address] [place] [phone] Notes/Report: Prothrombin Time Whole Bld POC 24.0 11.1-13.5 sec INR WHOLE BLOOD POC Reviewed date:12/20/2024 12:42:36 PM Interpretation: Performing Lab:[facility], [address] [place] [phone] Notes/Report: PT, INR - Anti Coag Clinic 3.3 0.9-1.1 METER #: [id number] INTERNATIONAL NORMALIZED RATIO (INR) REFERENCE RANGES Reference [...] OC Reviewed date:12/20/2024 12:42:36 PM Interpretation: Performing Lab:[facility], [address] [place] [phone] Notes/Report: Prothrombin Time Whole Bld POC 39.7 11.1-13.5 sec INR WHOLE BLOOD POC Reviewed date:01/07/2025 05:06:41 AM Interpretation: Performing Lab:[facility], [address] [place] [phone] Notes/Report: PT, INR - Anti Coag Clinic 3.0 0.9-1.1 METER #: [id number] INTERNATIONAL NORMALIZED RATIO (INR) REFERENCE RANGES Reference [...] OC Reviewed date:01/07/2025 05:06:41 AM Interpretation: Performing Lab:[facility], [address] [place] [phone] Notes/Report: Prothrombin Time Whole Bld POC 35.8 11.1-13.5 sec INR WHOLE BLOOD POC Reviewed date:01/18/2025 11:11:48 AM Interpretation: Performing Lab:[facility], [address] [place] [phone] Notes/Report: PT, INR - Anti Coag Clinic 2.1 0.9-1.1 METER #: [id number] INTERNATIONAL NORMALIZED RATIO (INR) REFERENCE RANGES Reference [...] OC Reviewed date:01/18/2025 11:11:48 AM Interpretation: Performing Lab:[facility], [address] [place] [phone] Notes/Report: Prothrombin Time Whole Bld POC 25.2 11.1-13.5 sec INR WHOLE BLOOD POC Reviewed date:02/04/2025 01:20:27 PM Interpretation: Performing Lab:[facility], [address] [place] [phone] Notes/Report: PT, INR - Anti Coag Clinic 3.5 0.9-1.1 METER #: [id number] INTERNATIONAL NORMALIZED RATIO (INR) REFERENCE RANGES Reference [...] Prothrombin Time Whole Bld P OC Reviewed date:02/04/2025 01:20:27 PM Interpretation: Performing Lab:[facility], [address] [place] [phone] Notes/Report: Prothrombin Time Whole Bld POC 41.7 11.1-13.5 sec INR WHOLE BLOOD POC (Not yet reviewed by provider) Interpretation: Performing Lab:[address] [phone] Notes/Report: PT, INR - Anti Coag Clinic 3.0 0.9-1.1 METER #: [id number] INTERNATIONAL NORMALIZED RATIO (INR) REFERENCE RANGES Reference [...] (Not yet reviewed by provider) Interpretation: Performing Lab:[address] [phone] Notes/Report: Prothrombin Time Whole Bld POC 36.1 11.1-13.5 sec Reason For Referral No Information Medications Medication SIG (Take, Route, Frequency, Duration) Notes Start Date End Date Status Warfarin Sodium 4 MG 1 tablet Orally Onc e a day Active Gabapentin 100 MG 1 capsule Orally Onc e a day for 90 days Active Atorvastatin Calcium 80 MG 1 tablet Oral ly Once a day Active FLUoxetine HCl 20 MG 1 capsule Orally On ce a day Active Omeprazole 20 MG TAKE 1 CAPSULE 30 IN NUTES BEFORE MORNING MEAL ORALLY ONCE A DAY 90 DAYS for 30 Active diazePAM 5 MG 1 tablet if needed O rally Once a day for 2 days 12/06/2024 Active Metoprolol Tartrate 25 MG 1 tablet with food Orally Twice a day Active diazePAM 5 MG 1 tablet Orally ever y 4 hours for anxiety 01/12/2023 Active metFORMIN HCl 500 MG 1 tablet [...] Problem Status W/U Status Risk Notes Problem 8267992 Former smoker (Z87.891) Active confirmed He is unable to obtain cigarettes. She does not smoke since his stroke. She says she does not want to. Problem 43311633 Fibromyalgia (M79.7) Active confirmed Fibromyalgia lately has been low-grade she lives with a without a great deal difficulty. No medical therapies necessary. Problem Hyperglycemia (89087942) Hyperglycemia (R73.9) Active confirmed Problem 909262776 Gastro-esophagea l reflux disease without esophagitis (K21.9) Active confirmed She will continue on omeprazole and liquid antacid as needed. Problem 045595361 Encounter for screening mammogram for malignant neoplasm of breast (Z12.31) Active confirmed [place] annual mammogram has been scheduled. Problem 31181648 Essential hypertension (I10) Active confirmed Low The most recent blood pressure was within normal limits and no change in her regimen was necessary. Problem 298083067 Anticoagulation adequate (Z79.01) Active confirmed She has had no bleeding and is compliant with her therapy. Problem CVA - Cerebrovascular accident (047332447) CVA (cerebral vascular accident) (I63.9) Active confirmed She is currently anticoagulated because of the stroke. She has a dense right hemiplegia, but no further neurological symptoms. She is awake and alert and responsive to questions. Her speech is fluent. Problem 933245326 Morbid obesity (E66.01) Active confirmed He discussed her overweight status. We discussed diet and nutrition. We made plans for her to lose weight at a rate of one half of a pound per week. Problem 347813144 Gallstones (K80.20) Active confirmed She remains free of symptoms from her cholelithiasis. Problem Right hemiplegia (973585758) Right hemiplegia (G81.91) Active confirmed There has been no change in the weakness of the right arm and leg. She remains confined to a wheelchair. The weakness in the right arm is dense. Problem 761310613 Type 2 diabetes mellitus without complication, without long-term current use of insulin (E11.9) Active confirmed Her hemoglob in A1c is 7.3. She has lost 3 pounds. We discussed continued weight loss through diet. No change in her medications was necessary. Problem 217488000 Acute abdominal pain (R10.9) Active confirmed Pain [...] Provider Diagnosis Jose E Hubbard III, MD [address] [place] [address] [place] [address] 02/16/2024 Jose E Hubbard Essential hypertensi on I10 ; DM (diabetes mellitus) E11.9 ; Fibromyalgia M79.7 ; Gastro-esophageal reflux disease without esophagitis K21.9 ; CVA (cerebral vascular accident) I63.9 ; Anticoagulation adequate Z79.01 ; Right hemiplegia G81.91 ; Former smoker Z87.891 and Obesity (BMI 30-39.9) E66.9 Jose E Hubbard III, MD [address] [place] [address] [place] [address] 07/14/2024 Jose E Hubbard Essential hypertensi on I10 ; CVA (cerebral vascular accident) I63.9 ; Gastro-esophageal reflux disease without esophagitis K21.9 ; Anticoagulation adequate Z79.01 ; Former smoker Z87.891 ; Fibromyalgia M79.7 and Right hemiplegia G81.91 Jose E Hubbard III, MD [address] [place] [address] [place] [address] 10/11/2024 Jose E Haydee Essential hypertensi on I10 ; CVA (cerebral vascular accident) I63.9 ; Fibromyalgia M79.7 ; Right hemiplegia G81.91 ; Former smoker Z87.891 ; Anticoagulation adequate Z79.01 ; Type 2 diabetes mellitus without complication, without long-term current use of insulin E11.9 and Obesity (BMI 30-39.9) E66.9 Jose E Hubbard III, MD [address] [place] [address] [place] [address] 10/30/2024 Jose E Haydee Essential hypertensi on I10 ; Acute abdominal pain R10.9 ; Anticoagulation adequate Z79.01 ; CVA (cerebral vascular accident) I63.9 ; Gastro-esophageal reflux disease without esophagitis K21.9 ; Fibromyalgia M79.7 ; Type 2 diabetes mellitus without complication, without long-term current use of insulin E11.9 ; Right hemiplegia G81.91 and Former smoker Z87.891 Jose E Hubbard III, MD [address] [place] [address] [place] [address] 12/06/2024 Jose E Haydee Essential hypertensi on I10 ; CVA (cerebral vascular accident) I63.9 ; Type 2 diabetes mellitus without complication, without long-term current use of insulin E11.9 ; Encounter for screening mammogram for malignant neoplasm of breast Z12.31 ; Former smoker Z87.891 ; Gastro-esophageal reflux disease without esophagitis K21.9 ; Anticoagulation adequate Z79.01 ; Right hemiplegia G81.91 and Fibromyalgia M79.7 Jose E Hubbard III, MD [address] [place] [address] [place] [address] 03/17/2024 Jose E Hubbard III, MD [address] [place] [address] [place] [address] 07/25/2024 Jose E Hubbard III, MD [address] [place] [address] [place] [address] 07/25/2024 Jose E Hubbard III, MD [address] [place] [address] [place] [address] 09/20/2024 Jose E Hubbard Essential hypertensi on I10 Jose E Hubbard III, MD [address] [place] [address] [place] [address] 09/26/2024 Jose E Hubbard III, MD [address] [place] [address] [place] [address] 11/14/2024 Jose E Hubbard Essential hypertensi on I10 Jose E Hubbard III, MD [address] [place] [address] [place] [address] 02/05/2025 Jose E Hubbard Essential hypertensi on [...] no change in her regimen was necessary. 02/05/2025 Essential hypertension (ICD-10 - I10) The [...] C) 04/15/2022 PROFILE, FASTING (COMPREHENSIVE METABOLI C) 12/06/2024 PROFILE, FASTING (COMPREHENSIVE METABOLI C) 07/14/2024 PROFILE, [...] w DIFF 11/10/2021 CBC w DIFF 07/08/2022 PROTHROMBIN TIME (PT, INR) 04/15/2020 URINE CULTURE [...] 12/06/2024 Lipid Panel 07/14/2024 Lipid Panel 07/13/2023 Lipid Panel 02/16/2024 Microalbumin, Random 07/14/2024 INR WHOLE BLOOD POC 02/07/2025 Prothrombin Time Whole Bld POC T Spot TB 08/04/2022 MM tomosynthesis screening BI 12/06/2024 US abdomen complete 07/08/2022 Hemoglobin A1c 12/06/2024 Hemoglobin A1c 07/14/2024 Next Appt Details Provider Name:Jose E Billy Haydee , 03/12/2025 10:15:00 AM, [address] [place] [address] , [place], [place], [id number], Provider Name:Jose E Hubbard , 07/17/2025 10:00:00 AM, [address] [place] [address] MON[place] JASMINE, [place], [id number], Insurance Providers Payer Name Payer Address Payer Phone Subscriber Number Group Number Insured Name Patient Relationship to Insured Coverage Start Date Coverage End Date MEDICARE NGS [address] [place] [address] [id number] Malu Garcia Self - patient is the insured [place] [address] [place] [id number] Malu Garcia Self - patient is the [...]
--- OUTSIDE RECORDS SUMMARY | 2025-02-07 12:34 | XMS_ITS | Clinical Summary ---
Author Organization [employer] Address [address] [place] [address] Care Team Providers Care Wader Boot Top Assembler Name Role Phone Unavailable Primary Care Provider [...] patient's age to complete this topic Insurance [facility] MEDICAID STAND ADULT
== END 2025-02-07 11:00 | disposition home or self-care (01) ==
LOC: HO.ACS 10:13
PROVIDERS: PCP Internal Medicine Medical Oncology; Visit Provider Internal Medicine Medical Oncology
DX: Z79.01 Long term (current) use of anticoagulants (principal)

== ENCOUNTER → 2025-02-07 10:13 | Outpatient (BNVA) | payer MEDICARE, MEDICAID, SELFPAY | PROVIDERS: PCP Internal Medicine Medical Oncology; Visit Provider Internal Medicine Medical Oncology | DX: Z51.81 Encounter for therapeutic drug level monitoring (principal); Z79.01 Long term (current) use of anticoagulants | CPT/HCPCS: 85610; 99211 ==

== ENCOUNTER 2025-02-21 10:18 | Outpatient (AMB) | payer MEDICARE, MEDICAID, SELFPAY ==
[2025-02-21 10:24] LABS: Prothrombin Time Whole Bld POC 34.2 sec (11.1-13.5); ~PT, ~INR - Anti Coag Clinic 2.9 (0.9-1.1)
--- NOTE | 2025-02-21 10:27 | MHC.OFFVISCO ---
Intake Intake Visit Reasons: Anticoagulation Allergies acetaminophen (Percocet) Allergy (Severe, Verified 02/21/25 10:19) ITCHY RASH oxycodone (Percocet) Allergy (Severe, Verified 02/21/25 10:19) Itching Penicillins (PENICILLINS) Allergy (Intermediate, Verified 02/21/25 10:19) itchy rash naproxen (NAPROXEN) Allergy (Unknown, Verified 02/21/25 10:19) STOMACH PAIN Medication List - Last Reconciled 02/21/25 by Anali Louis RN acetaminophen ER mg PO atorvastatin 80 mg PO DAILY bisacodyl 10 mg PO BEDTIME chlorhexidine gluconate 0.12% PO docusate sodium 100 mg PO BEDTIME fluoxetine 20 mg PO DAILY gabapentin 100 mg PO DAILY metformin 500 mg PO DAILY metoprolol tartrate 25 mg PO BID omeprazole 20 mg PO DAILY warfarin 4 mg See Protocol PO DAILY Nursing Note NO CP,SOB,DIET/MED CHANGES,FALLS OR SX OF BLEEDING. CONTINUE PRESENT DOSE AND FOLLOW-UP IN 2 WEEKS GOOD UNDERSTANDING OF DOSING VERB.BY ONEYDA MCCORMACK. Anti-Coag Initial Assessment Social Hx Patient Tobacco Use Status: Never used Tobacco alcohol intake: never Alcohol intake frequency: does not drink Coding Level of Care Code Est Patient Level 1 Diagnoses Current use of anticoagulant therapy Z79.01 Assessment & Plan Assessment & Plan (1) Current use of anticoagulant therapy: Code(s): Z79.01 - shelter (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
== END 2025-02-21 10:29 | disposition home or self-care (01) ==
LOC: HO.ACS 10:18
PROVIDERS: PCP Internal Medicine Medical Oncology; Visit Provider Internal Medicine Medical Oncology
DX: Z79.01 Long term (current) use of anticoagulants (principal)

== ENCOUNTER → 2025-02-21 10:18 | Outpatient (BNVA) | payer MEDICARE, SELFPAY | PROVIDERS: PCP Internal Medicine Medical Oncology; Visit Provider Internal Medicine Medical Oncology | DX: Z51.81 Encounter for therapeutic drug level monitoring (principal); Z79.01 Long term (current) use of anticoagulants | CPT/HCPCS: 85610; 99211 ==

== ENCOUNTER 2025-03-07 10:18 | Outpatient (AMB) | payer MEDICARE, SELFPAY ==
--- OUTSIDE RECORDS SUMMARY | 2024-07-25 11:23 | XMS_ITS ---
Author Organization Jose E Hubbard III, MD Address [address] [place] [address] [place] [address] Care Team Providers Care Belly Packer Name Role Phone Dr. Jose E Hubbard III Primary Care Provider [phone] Medications Medication SIG (Take, Route, Fr equency, Duration) Notes Start Date End Date Status metFORMIN HCl 500 MG 1 tablet Orally Onc e a day for 30 days 07/25/2024 Active Social History Sex Assigned At : Social History Observation Description Sex Assigned At Female Encounters Encounter Location Date Provider Diagnosis Jose E Hubbard III, MD [address] [place] [address] [place] [address] 07/25/2024 Jose E Hubbard Plan Of Treatment Medication Medication Name Sig Start Date Stop Date Notes metFORMIN HCl 500 MG 1 tablet Orally Onc e a day for 30 days 07/25/2024 Next Appt Details Provider Name:Jose E Hubbard , 03/14/2025 10:15:00 AM, [address] [place] [address] [place], [address], Provider Name:Jose E Hubbard , 07/17/2025 10:00:00 AM, [address] [place] [address] [place], [address], Progress Notes * Malu GARCIADOB:1955 ([age] yo F)Acc No.[id number]:07/25/2024 Patient: Florecita CLEMONSMarely Malu :1955 A ge:68 Y S ex:Female Address:[address] [place] [address] * Refills Start metFORMIN HCl Tablet, 500 MG, Orally, 30 Tablet, 1 tablet, Once a day, 30 days, Refills=11 * true * Date: Generated for Michael junior/Kiko/Petra on: 12:44 PM EDT
--- OUTSIDE RECORDS SUMMARY | 2024-09-20 09:42 | XMS_ITS ---
Author Organization Jose E Hubbard III, MD Address [address] [place] [address] [place] [address] Care Team Providers Care Plug Stitcher Name Role Phone Dr. Jose E Hubbard III Primary Care Provider [phone] REASON FOR VISIT refills needed Medications Medication SIG (Take, Route, Frequency, Duration) Notes Start Date End Date Status FLUoxetine HCl 20 MG 1 capsule Orally On ce a day for 90 days Active Metoprolol Tartrate 25 MG 1 tablet with food Orally Twice a day for 90 days Active Social History Sex Assigned At : Social History Observation Description Sex Assigned At Female Encounters Encounter Location Date Provider Diagnosis Jose E Hubbard III, MD [address] [place] [address] [place] [address] 09/20/2024 Jose E Hubbard Essential hypertensi on I10 Assessments Encounter Date Diagnosis (ICD Code) Assessment Notes Treat ment Notes Treatment Clinical Notes 09/20/2024 Essential hypertension (ICD-10 - I10) Her blood pressure was 126/77 and no change in her regimen was necessary. Plan Of Treatment Medication Medication Name Sig Start Date Stop Date Notes FLUoxetine HCl 20 MG 1 capsule Orally On ce a day for 90 days Metoprolol Tartrate 25 MG 1 tablet with food Orally Twice a day for 90 days Next Appt Details Provider Name:Jose E Hubbard , 03/14/2025 10:15:00 AM, [address] [place] [address] [place], [address], Provider Name:Jose E Hubbard , 07/17/2025 10:00:00 AM, [address] [place] [address] [place], [address], Progress Notes * Malu GARCIADOB:1955 ([age] yo F)Acc No.[id number]:09/20/2024 Patient: Malu BOJORQUEZ :1955 A ge:68 Y S ex:Female Address:[address] [place] [address] * Refills Refill FLUoxetine HCl Capsule, 20 MG, Orally, 90, 1 capsule, Once a day, 90 days, Refills=3 Refill Metoprolol Tartrate Tablet, 25 MG, Orally, 180, 1 tablet with food, Twice a day, 90 days, Refills=3 * true * Date: Generated for Michael jnuior/Kiko/Eugenieitting on: 1 12:43 PM EDT
--- OUTSIDE RECORDS SUMMARY | 2024-09-26 05:54 | XMS_ITS ---
Author Organization Jose E Hubbard III, MD Address [address] [place] [address] [place] [address] Care Team Providers Care Reimbursement Coordinator Name Role Phone Dr. Jose E Hubbard [...] Diagnosis Jose E Hubbard III, MD [address] [place] [address] [place] [address] 09/26/2024 Jose E Hubbard Plan Of Treatment Medication Medication Name Sig Start Date Stop Date Notes Atorvastatin Calcium 80 MG 1 tablet Oral ly Once a day for 90 days Next Appt Details Provider Name:Jose E Hubbard , 03/14/2025 10:15:00 AM, [address] [place] [address] [place], [address], Provider Name:Jose E Hubbard , 07/17/2025 10:00:00 AM, [address] [place] [address] [place], [address], Progress Notes * Malu GARCIADOB:1955 ([age] yo F)Acc No.[id number]:09/26/2024 Patient: Malu BOJORQUEZ :1955 A ge:68 Y S ex:Female Address:[address] [place] [address] [place] [address] * Refills Refill Atorvastatin Calcium Tablet, 80 MG, Orally, 90 Tablet, 1 tablet, Once a day, 90 days, Refills=3 * true * Date: Generated for Michael junior/Kiko/Petra on: 12:41 PM EDT
--- OUTSIDE RECORDS SUMMARY | 2024-10-11 06:00 | XMS_ITS ---
Author Organization Jose E Hubbard III, MD Address [address] [place] [address] [address] [place] [address] Care Team Providers Care Refinery Operator Gas Plant Name Role Phone Dr. Jose E Hubbard [...] Provider Diagnosis Jose E Hubbard III, MD [address] [place] [address] [place] [address] 10/11/2024 Jose E Hubbard Essential hypertensi on [...] Reason: OV Provider Name:Jose E Hubbard , 03/14/2025 10:15:00 AM, [address] [place] [address] [address], [place], [address], Provider Name:Jose E Hubbard , 07/17/2025 10:00:00 AM, [address] [place] [address] [address], [place], [address], Progress Notes * ATTILA MaluDOB:1955 ([age] yo F)Acc No.[id number]:10/11/2024 Progress Notes Patient: Malu BOJORQUEZ Provider: Una Hubbard MD :1955 A ge:68 Y S ex:Female Date:10/11/2024 Address:[address] [place] [address] FERNIE Wenceslao [id number] Subjective: * Chief Complaints: * H ypertensionHistory [...] History: * Surgical History: N egative colonoscopy, [facility], Dr. York 03/2022 * Hospitalization/Major Diagno [...] E x-cigarette smoker S he lives in [place]. She was born in [place]. She has been since 1997 and [...] Hubbard MD Date: 0 10/11/2024 Generated for Printi ng/Faanjumg/eTransmitting on: 1 12:44 PM EDT History and Physical Notes * [...]
--- OUTSIDE RECORDS SUMMARY | 2024-10-30 09:30 | XMS_ITS ---
Author Organization Jose E Hubbard III, MD Address [address] [place] [address] [address] [place] [address] Care Team Providers Care Business Support Coordinator Name Role Phone Dr. Jose E Hubbard III Primary Care Provider [phone] Allergies Allergen (clinical drug ingredient) Drug/Non Drug [...] Problem Status W/U Status Risk Notes Problem [id number] Acute abdominal pain (R10.9) Active confirmed Pain is mild and has been present for only 24 hours. She is able to eat and drink. She has had no nausea vomiting or diarrhea. If she worsens she'll return to the emergency room. I began an antibiotic. Encounters Encounter Location Date Provider Diagnosis Jose E Hubbard III, MD [address] [place] [address] [place] [address] 10/30/2024 Jose E Hubbard Essential hypertensi on [...] son: OV Provider Name:Jose E Hubbard , 03/14/2025 10:15:00 AM, [address] [place] [address] [address], [place], [address], Provider Name:Jose E Hubbard , 07/17/2025 10:00:00 AM, [address] [place] [address] [address], [place], [address], Progress Notes * Elmer GARCIA:1955 ([age] yo F)Acc No.[id number]:10/30/2024 Patient: Malu BOJORQUEZ Provider: Una Hubbard MD :1955 A ge:69 Y S ex:Female Date:10/30/2024 Address:[address] [place], [place] [address]YEN [id number] Subjective: * Chief Complaints: * A bdominal [...] ocation of provider rendering services: { ...} [address] [place] [address] [address] [facility] [address] L ocation of patient: mac ddress listed [...] History: * Surgical History: N egative colonoscopy, [facility], Dr. York 03/2022 * Hospitalization/Major Diagno [...] E x-cigarette smoker S he lives in [place]. She was born in [place]. She has been since 1997 and [...] MD Date: 0 10/30/2024 Generated for Michael junior/Kiko/Petra on: 1 12:42 PM EDT History and Physical Notes * HPI (History of Present Illness) Category Sub-Category Detail Notes Telehealth Location of [facility] rendering services:: {...} [address] [place] [address] Drive [address] [place] [address] Location of patient:: address listed in demographics [...]
--- OUTSIDE RECORDS SUMMARY | 2024-11-14 05:22 | XMS_ITS ---
Author Organization Jose E Hubbard III, MD Address [address] [place] [address] [place] [address] Care Team Providers Care Supervisor Blood Donor Recruiters Name Role Phone Dr. Jose E Hubbard [...] Provider Diagnosis Jose E Hubbard III, MD [address] [place] [address] [place] [address] 11/14/2024 Jose E Hubbard Essential hypertensi on [...] Name:Jose E Hubbard , 03/14/2025 10:15:00 AM, [address] [place] [address] [place], [address], Provider Name:Jose E Hubbard , 07/17/2025 10:00:00 AM, [address] [place] [address] [place], [address], Progress Notes * Malu GARCIADOB:1955 ([age] yo F)Acc No.[id number]:11/14/2024 Patient: Malu BOJORQUEZ :1955 A ge:69 Y S ex:Female Address:[address] [place] [address] * Refills Refill Warfarin Sodium Tablet, 4 MG, Orally, 90 Tablet, 1 tablet, Once a day, 90 days, Refills=3 * true * Date: Generated for Michael junior/Kiko/Eugenieitting on: 1 12:43 PM EDT
--- OUTSIDE RECORDS SUMMARY | 2024-12-06 06:00 | XMS_ITS ---
Author Organization Jose E Hubbard III, MD Address [address] [place] [address] [address] [place] [address] Care Team Providers Care Claims Adjuster Name Role Phone Dr. Jose E Hubbard [...] Problem Status W/U Status Risk Notes Problem 806431953 Encounter for screening mammogram for malignant neoplasm of breast (Z12.31) Active confirmed RI annual mammogram has been scheduled. Vital Signs Temperature 98.8 degrees Fahrenheit 12/07/19 25 Blood pressure systolic 129 mm Hg 12/07/19 25 Blood pressure diastolic 66 mm Hg 025 Heart Rate 73 /min 12/06/2024 Height 58 in 12/06/2024 Weight 175 lbs 12/06/2024 BMI 36.57 kg/m2 12/06/2024 Encounters Encounter Location Date Provider Diagnosis Jose E Hubbard III, MD [address] [place] [address] [place] [address] 12/06/2024 Jose E Hubbard Essential hypertensi on [...] Name:Jose E Hubbard , 03/14/2025 10:15:00 AM, [address] [facility] [address], [place], [address], Provider Name:Jose E Hubbard , 07/17/2025 10:00:00 AM, [address] [facility] [address], [place], [address], Progress Notes * Malu GARCIADOB:1955 ([age] yo F)Acc No.[id number]:12/06/2024 Progress Notes Patient: Malu BOJORQUEZ Provider: Una Hubbard MD :1955 A ge:69 Y S ex:Female Date:12/06/2024 Address:[address] [place] [address] [place], [id number] Subjective: * Chief Complaints: * H istory [...] History: * Surgical History: N egative colonoscopy, [facility], Dr. York 03/2022 * Hospitalization/Major [...] E x-cigarette smoker S he lives in [place]. She was born in [place]. She has been since 1997 and [...] mg/dL) 166 (Ref Range: mg/dL) * Lab:Comprehensive [place]. Pane l Fast * Collection Date 10/04/2024 [...] 0 12/06/2024 Generated for Michael junior/Kiko/Eugenieitting on: 12:42 PM EDT History and Physical Notes [...]
--- OUTSIDE RECORDS SUMMARY | 2025-02-05 09:20 | XMS_ITS ---
Author Organization Jose E Hubbard III, MD Address [address] [place] [address] [place] [address] Care Team Providers Care Office Machine Repair Shop Supervisor Name Role Phone Dr. Jose E [...] Diagnosis Jose E Hubbard III, MD [address] [place] [address] [place] [address] 02/05/2025 Jose E Hubbard Essential hypertensi on [...] Name:Jose E Hubbard , 03/14/2025 10:15:00 AM, [address] [place] [address] [place], [address], Provider Name:Jose E Hubbard , 07/17/2025 10:00:00 AM, [address] [place] [address] [place], [address], Progress Notes * Elmer GARCIA:1955 ([age] yo F)Acc No.[id number]:02/05/2025 Patient: Malu BOJORQUEZ :1955 A ge:69 Y S ex:Female Address:[address] [place] [phone] * Refills Refill Gabapentin Capsule, 100 MG, Orally, 90, 1 capsule, Once a day, 90 days, Refills=3 * true * Date: Generated for Michael junior/Kiko/Vonsmitting on: 12:43 PM EDT
--- OUTSIDE RECORDS SUMMARY | 2025-02-15 07:47 | XMS_ITS ---
Author Organization Jose E Hubbard III, MD Address [address] [place] [address] [place] [address] Care Team Providers Care Duplicator Punch Set Up Operator Name Role Phone Dr. Jose E Hubbard III Primary Care Provider [phone] REASON FOR VISIT Rx Request Social History Sex Assigned At : Social History Observation Description Sex Assigned At Female Encounters Encounter Location Date Provider Diagnosis Jose E Hubbard III, MD [address] [place] [address] [place] [address] 02/15/2025 Jose E Hubbard Plan Of Treatment Next Appt Details Provider Name:Jose E Hubbard , 03/14/2025 10:15:00 AM, [address] [place] [address] [place], [address], Provider Name:Jose E Hubbard , 07/17/2025 10:00:00 AM, [address] [place] [address] [place], [address], Progress Notes * Malu GARCIADOB:1955 ([age] yo F)Acc No.[id number]:02/15/2025 Patient: Malu BOJORQUEZ :1955 A ge:69 Y S ex:Female Address:[address] [place] [address] * true * Date: Generated for Printi ng/Faxing/eTransmitting on: 1 12:42 PM EDT
--- OUTSIDE RECORDS SUMMARY | 2025-02-16 07:50 | XMS_ITS ---
Author Organization Jose E Hubbard III, MD Address [address] [place] [address] [place] [address] Care Team Providers Care Package Center Supervisor Name Role Phone Dr. Jose E Hubbard III Primary Care Provider [phone] Medications Medication SIG (Take, Route, Frequency, Duration) Notes Start Date End Date Status diazePAM 5 MG 1 tablet if needed O rally every 4 hours for 1 days 02/16/2025 Active Social History Sex Assigned At : Social History Observation Description Sex Assigned At Female Encounters Encounter Location Date Provider Diagnosis Jose E Hubbard III, MD [address] [place] [address] [address] [facility] [place] [address] 02/16/2025 Jose E Hubbard Plan Of Treatment Medication Medication Name Sig Start Date Stop Date Notes diazePAM 5 MG 1 tablet if needed O rally every 4 hours for 1 days 02/16/2025 Next Appt Details Provider Name:Jose E Hubbard , 03/14/2025 10:15:00 AM, [address] [place] [address] [place], [address], Provider Name:Jose E Hubbard , 07/17/2025 10:00:00 AM, [address] [place] [address] [place], [address], Progress Notes * Malu GARCIADOB:1955 ([age] yo F)Acc No.[id number]:02/16/2025 Patient: Florecita SANTOSH Malu :1955 A ge:69 Y S ex:Female Address:[address] [place] [address] [place] [address] * Refills Start diazePAM Tablet, 5 MG, Orally, 2 Tablets, 1 tablet if needed, every 4 hours, 1 days, Refills=0 * true * Date: Generated for Michael junior/Kiko/Petra on: 12:43 PM EDT
[2025-03-07 10:26] LABS: Prothrombin Time Whole Bld POC 26.4 sec (11.1-13.5); ~PT, ~INR - Anti Coag Clinic 2.2 (0.9-1.1)
--- NOTE | 2025-03-07 10:30 | MHC.OFFVISCO ---
Intake Intake Visit Reasons: Anticoagulation Allergies acetaminophen (Percocet) Allergy (Severe, Verified 03/07/25 10:21) ITCHY RASH oxycodone (Percocet) Allergy (Severe, Verified 03/07/25 10:21) Itching Penicillins (PENICILLINS) Allergy (Intermediate, Verified 03/07/25 10:21) itchy rash naproxen (NAPROXEN) Allergy (Unknown, Verified 03/07/25 10:21) STOMACH PAIN Medication List - Last Reconciled 03/07/25 by Anali Louis RN acetaminophen ER mg PO atorvastatin 80 mg PO DAILY bisacodyl 10 mg PO BEDTIME chlorhexidine gluconate 0.12% PO docusate sodium 100 mg PO BEDTIME fluoxetine 20 mg PO DAILY gabapentin 100 mg PO DAILY metformin 500 mg PO DAILY metoprolol tartrate 25 mg PO BID omeprazole 20 mg PO DAILY warfarin 4 mg See Protocol PO DAILY Nursing Note NO CP,SOB,DIET/MED CHANGES,FALLS OR SX OF BLEEDING. CONTINUE PRESENT DOSE AND FOLLOW-UP IN WEEKS GOOD UNDERSTANDING OF DOSING INSTR. Anti-Coag Initial Assessment Social Hx Patient Tobacco Use Status: Never used Tobacco alcohol intake: never Alcohol intake frequency: does not drink Coding Level of Care Code Est Patient Level 1 Diagnoses Current use of anticoagulant therapy Z79.01 Assessment & Plan Assessment & Plan (1) Current use of anticoagulant therapy: Code(s): Z79.01 - residential (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
--- OUTSIDE RECORDS SUMMARY | 2025-03-07 12:42 | XMS_ITS | Patient Health Record ---
Author Organization [facility] Address [address] [place] [address] Care Team Providers Care Structures Engineer Name Role Phone Jose E Hubbard MD Primary Care Provider UnavailKhadar Payne Unavailable [phone] Allergies Allergen (clinical drug ingredient) Drug/Non Drug [...] Omeprazole 20 MG take 1 capsule by [facility] twice a day 30 MINUTES PRIOR TO BREAKFAST AND SUPPER Oral; Duration: 30 Active Vitamin D3 400 units once daily Active Social History Tobacco use other than smoking: Question Answer Notes Are you an other tobacco user? No Problems Problem Type SNOMED Code ICD Code Onset Dates Problem Status W/U Status Risk Notes Problem Arthralgia (15032433) Arthralgia (719.40) Active confirmed Problem Disorder of joint of ankle and/or foot (332772934) Arthritis - Degenerative (719.97) Active confirmed Problem Hammer toe (792818798) Hammer toe (735.4) Active confirmed Problem Onychomycosis (830400827) Onychomycosis (110.1) Active confirmed Problem Pain in limb (78608307) Pain in Limb (729.5) Active confirmed Problem Tenosynovitis (46107180) Tenosynovitis (727.06) Active confirmed Problem Foot ulcer (56420685) Ulcer of Other Part of Foot (707.15) Active confirmed Plan Of Treatment Pending Test Test Name Order Date X ray : Foot, left 3V 12/28/2011 72694- Debride <25 sq cm 08/17/2013 Insurance Providers Payer Name Payer Address Payer Phone Subscriber Number Group Number Insured Name Patient Relationship to Insured Coverage Start Date Coverage End Date [facility] [address] [place] [address] [id number] GAYLA AIKEN Self - patient is the insured Medical (General) History Medical History History ICD Code fibromyalgia Reflux Surgical History Surgery Date(Month/Year) foot surgery 2008 hand/wrist 2007
--- OUTSIDE RECORDS SUMMARY | 2025-03-07 12:42 | XMS_ITS | Clinical Summary ---
Author Organization [facility] Address [address] [place] [address] Care Team Providers Care Funnel Setter Name Role Phone Unavailable Primary Care Provider [...] Documents on File Type Date Recorded Patient Insurance Business Analyst Expl anation Health Care Decision (hx) 07/20/2018 AD ALMA ROSA DIRECTIVE
--- OUTSIDE RECORDS SUMMARY | 2025-03-07 12:43 | XMS_ITS | Clinical Summary ---
Author Organization [employer] Address [address] [facility] [address] [place] [address] Care Team Providers Care Baseball Inspector And Repairer Name Role Phone Unavailable Primary Care Provider [...] patient's age to complete this topic Insurance [facility] MEDICAID STAND ADULT
--- OUTSIDE RECORDS SUMMARY | 2025-03-07 12:44 | XMS_ITS | Patient Health Record ---
Author Organization Jose E Hubbard III, MD Address [address] [place] [address] [place] [address] Care Team Providers Care Net Sql Developer Name Role Phone Dr. Jose E Hubbard III Primary Care Provider Allergies Allergen (clinical drug ingredient) Drug/Non Drug Allergy documented on EMR Reaction Allergy Type Onset Date Status acetaminophen / oxycodone Percocet Unknown Drug Allergy Active miconazole Monistat 3 burning Drug Allergy Activ e Results Component Value Reference Range Notes INR WHOLE BLOOD POC Reviewed date:03/14/2024 03:12:08 PM Interpretation: Performing Lab:[facility], [address] [place] [address] Notes/Report: PT, INR - [facility] 2.6 0.9-1.1 METER #: [id number] INTERNATIONAL NORMALIZED RATIO (INR) REFERENCE RANGES Reference [...] OC Reviewed date:03/14/2024 03:12:08 PM Interpretation: Performing Lab:[facility], [address] [place] [address] Notes/Report: Prothrombin Time Whole Bld POC 30.7 11.1-13.5 sec INR WHOLE BLOOD POC Reviewed date:03/28/2024 02:06:07 PM Interpretation: Performing Lab:[facility], [address] [place] [address] Notes/Report: PT, INR - [facility] 2.4 0.9-1.1 METER #: [id number] INTERNATIONAL NORMALIZED RATIO (INR) REFERENCE RANGES Reference [...] OC Reviewed date:03/28/2024 02:06:07 PM Interpretation: Performing Lab:[facility], [address] [place] [address] Notes/Report: Prothrombin Time Whole Bld POC 29.2 11.1-13.5 sec INR WHOLE BLOOD POC Reviewed date:04/04/2024 09:01:19 PM Interpretation: Performing Lab:[facility], [address] [place] [address] Notes/Report: PT, INR - [facility] 2.4 0.9-1.1 METER #: [id number] INTERNATIONAL NORMALIZED RATIO (INR) REFERENCE RANGES Reference [...] OC Reviewed date:04/04/2024 09:01:19 PM Interpretation: Performing Lab:[facility], [address] [place] [address] Notes/Report: Prothrombin Time Whole Bld POC 28.9 11.1-13.5 sec INR WHOLE BLOOD POC Reviewed date:04/24/2024 05:20:08 AM Interpretation: Performing Lab:[facility], [address] [place] [phone] Notes/Report: PT, INR - [facility] 2.6 0.9-1.1 METER #: [id number] INTERNATIONAL NORMALIZED RATIO (INR) REFERENCE RANGES Reference [...] OC Reviewed date:04/24/2024 05:20:08 AM Interpretation: Performing Lab:[facility], [address] [place] [address] Notes/Report: Prothrombin Time Whole Bld POC 31.6 11.1-13.5 sec INR WHOLE BLOOD POC Reviewed date:05/12/2024 04:18:48 PM Interpretation: Performing Lab:[facility], [address] [place] [address] Notes/Report: PT, INR - [facility] 1.9 0.9-1.1 METER #: [id number] INTERNATIONAL NORMALIZED RATIO (INR) REFERENCE RANGES Reference [...] OC Reviewed date:05/12/2024 04:18:48 PM Interpretation: Performing Lab:[facility], [address] [place] [address] Notes/Report: Prothrombin Time Whole Bld POC 23.3 11.1-13.5 sec INR WHOLE BLOOD POC Reviewed date:05/29/2024 10:54:12 AM Interpretation: Performing Lab:[facility], [address] [place] [address] Notes/Report: PT, INR - [facility] 2.4 0.9-1.1 METER #: [id number] INTERNATIONAL NORMALIZED RATIO (INR) REFERENCE RANGES Reference [...] OC Reviewed date:05/29/2024 10:54:12 AM Interpretation: Performing Lab:[facility], [address] [place] [address] Notes/Report: Prothrombin Time Whole Bld POC 29.1 11.1-13.5 sec INR WHOLE BLOOD POC Reviewed date:06/19/2024 06:09:47 PM Interpretation: Performing Lab:[facility], [address] [place] [address] Notes/Report: PT, INR - [facility] 2.2 0.9-1.1 METER #: [id number] INTERNATIONAL NORMALIZED RATIO (INR) REFERENCE RANGES Reference [...] OC Reviewed date:06/19/2024 06:09:47 PM Interpretation: Performing Lab:[facility], [address] [place] [address] Notes/Report: Prothrombin Time Whole Bld POC 26.9 11.1-13.5 sec INR WHOLE BLOOD POC Reviewed date:06/28/2024 09:04:14 AM Interpretation: Performing Lab:[facility], [address] [place] [address] Notes/Report: PT, INR - [facility] 2.6 0.9-1.1 METER #: [id number] INTERNATIONAL NORMALIZED RATIO (INR) REFERENCE RANGES Reference [...] OC Reviewed date:06/28/2024 09:04:14 AM Interpretation: Performing Lab:[facility], [address] [place] [phone] Notes/Report: Prothrombin Time Whole Bld POC 31.7 11.1-13.5 sec INR WHOLE BLOOD POC Reviewed date:08/01/2024 12:17:16 PM Interpretation: Performing Lab:[facility], [address] [place] [address] Notes/Report: PT, INR - [facility] 2.0 0.9-1.1 METER #: [id number] INTERNATIONAL NORMALIZED RATIO (INR) REFERENCE RANGES Reference [...] OC Reviewed date:08/01/2024 12:17:17 PM Interpretation: Performing Lab:[facility], [address] [place] [phone] Notes/Report: Prothrombin Time Whole Bld POC 24.5 11.1-13.5 sec INR WHOLE BLOOD POC Reviewed date:08/01/2024 12:17:16 PM Interpretation: Performing Lab:[facility], [address] [place] [phone] Notes/Report: PT, INR - [facility] 1.7 0.9-1.1 METER #: [id number] INTERNATIONAL NORMALIZED RATIO (INR) REFERENCE RANGES Reference [...] OC Reviewed date:08/01/2024 12:17:16 PM Interpretation: Performing Lab:[facility], [address] [place] [phone] Notes/Report: Prothrombin Time Whole Bld POC 20.4 11.1-13.5 sec INR WHOLE BLOOD POC Reviewed date:08/07/2024 10:48:30 AM Interpretation: Performing Lab:[facility], [address] [place] [phone] Notes/Report: PT, INR - [facility] 2.5 0.9-1.1 METER #: [id number] INTERNATIONAL NORMALIZED RATIO (INR) REFERENCE RANGES Reference [...] OC Reviewed date:08/07/2024 10:48:30 AM Interpretation: Performing Lab:[facility], [address] [place] [phone] Notes/Report: Prothrombin Time Whole Bld POC 29.5 11.1-13.5 sec INR WHOLE BLOOD POC Reviewed date:08/24/2024 08:14:12 PM Interpretation: Performing Lab:[facility], [address] [place] [address] Notes/Report: PT, INR - [facility] 2.8 0.9-1.1 METER #: [id number] INTERNATIONAL NORMALIZED RATIO (INR) REFERENCE RANGES Reference [...] OC Reviewed date:08/24/2024 08:14:12 PM Interpretation: Performing Lab:[facility], [address] [place] [phone] Notes/Report: Prothrombin Time Whole Bld POC 33.4 11.1-13.5 sec INR WHOLE BLOOD POC Reviewed date:09/13/2024 03:54:56 PM Interpretation: Performing Lab:[facility], [address] [place] [phone] Notes/Report: PT, INR - [facility] 4.5 0.9-1.1 METER #: [id number] INTERNATIONAL NORMALIZED RATIO (INR) REFERENCE RANGES Reference [...] OC Reviewed date:09/13/2024 03:54:56 PM Interpretation: Performing Lab:[facility], [address] [place] [phone] Notes/Report: Prothrombin Time Whole Bld POC 53.6 11.1-13.5 sec INR WHOLE BLOOD POC Reviewed date:09/13/2024 03:54:56 PM Interpretation: Performing Lab:[address] [phone] Notes/Report: PT, INR - [facility] 3.0 0.9-1.1 METER #: [id number] INTERNATIONAL NORMALIZED RATIO (INR) REFERENCE RANGES Reference [...] OC Reviewed date:09/13/2024 03:54:56 PM Interpretation: Performing Lab:[facility], [address] [place] [address] Notes/Report: Prothrombin Time Whole Bld POC 36.2 11.1-13.5 sec INR WHOLE BLOOD POC Reviewed date:09/27/2024 11:28:44 AM Interpretation: Performing Lab:[facility], [address] [place] [address] Notes/Report: PT, INR - [facility] 3.2 0.9-1.1 METER #: [id number] INTERNATIONAL NORMALIZED RATIO (INR) REFERENCE RANGES Reference [...] OC Reviewed date:09/27/2024 11:28:44 AM Interpretation: Performing Lab:[facility], [address] [place] [address] Notes/Report: Prothrombin Time Whole Bld POC 38.7 11.1-13.5 sec Complete Blood Count Auto Di ff Reviewed date:10/05/2024 05:27:32 AM Interpretation: Performing Lab:[facility], [address] [place] [address] Notes/Report: White Blood Count 7.6 4.8-10.8 X10*3/uL [...] NRBC Abs Auto 0.000 0.0-0.012 X10*3/uL Comprehensive [place]. Panel Fa st Reviewed date:10/05/2024 05:27:32 AM Interpretation: Performing Lab:[facility], [address] [place] [address] Notes/Report: Sodium 144 135-145 mmol/L Potassium 4.2 [...] Panel Reviewed date:10/05/2024 05:27:32 AM Interpretation: Performing Lab:[address] [phone] Notes/Report: Triglycerides 61 <150 mg/dL Desirable Triglyceride: [...] Random Reviewed date:10/05/2024 05:27:32 AM Interpretation: Performing Lab:[address] [address] Notes/Report: Creatinine Urine 132.65 Microalbumin Urine 13.0 Microalbum/Creatinine Ratio Ur 9.8 <30 ug/mg cr Albumin/Creatinine Ratio Reference Ranges: Normal: < 30 ug/mg creatinine Microalbuminuria: 30 - 300 ug/mg creatinine Clinical Albuminuria: > 300 ug/mg creatinine INR WHOLE BLOOD POC Reviewed date:10/05/2024 05:27:32 AM Interpretation: Performing Lab:[address] [address] Notes/Report: PT, INR - [facility] 3.2 0.9-1.1 METER #: [id number] INTERNATIONAL NORMALIZED RATIO (INR) REFERENCE RANGES Reference [...] OC Reviewed date:10/05/2024 05:27:32 AM Interpretation: Performing Lab:[facility], [address] [place] [address] Notes/Report: Prothrombin Time Whole Bld POC 38.7 11.1-13.5 sec Hemoglobin A1c Reviewed date:10/05/2024 05:27:32 AM Interpretation: Performing Lab:[facility], [address] [place] [address] Notes/Report: Hemoglobin A1c % 7.3 <6.0 % [...] average glucose, using the formula of the [id number]-Kwutkny Average Glucose study (ADAG), Diabetes Care, Vol.31,#8, 2007 INR WHOLE BLOOD POC Reviewed date:10/20/2024 01:43:10 PM Interpretation: Performing Lab:[facility], [address] [place] [phone] Notes/Report: PT, INR - [facility] 3.5 0.9-1.1 METER #: [id number] INTERNATIONAL NORMALIZED RATIO (INR) REFERENCE RANGES Reference [...] OC Reviewed date:10/20/2024 01:43:10 PM Interpretation: Performing Lab:[facility], [address] [place] [address] Notes/Report: Prothrombin Time Whole Bld POC 42.2 11.1-13.5 sec INR WHOLE BLOOD POC Reviewed date:11/01/2024 11:06:36 AM Interpretation: Performing Lab:[facility], [address] [place] [address] Notes/Report: PT, INR - [facility] 2.3 0.9-1.1 METER #: [id number] INTERNATIONAL NORMALIZED RATIO (INR) REFERENCE RANGES Reference [...] OC Reviewed date:11/01/2024 11:06:36 AM Interpretation: Performing Lab:[facility], [address] [place] [address] Notes/Report: Prothrombin Time Whole Bld POC 27.6 11.1-13.5 sec INR WHOLE BLOOD POC Reviewed date:11/22/2024 01:44:56 PM Interpretation: Performing Lab:[facility], [address] [place] [address] Notes/Report: PT, INR - [facility] 2.0 0.9-1.1 METER #: [id number] INTERNATIONAL NORMALIZED RATIO (INR) REFERENCE RANGES Reference [...] OC Reviewed date:11/22/2024 01:44:56 PM Interpretation: Performing Lab:[facility], [address] [place] [address] Notes/Report: Prothrombin Time Whole Bld POC 24.0 11.1-13.5 sec INR WHOLE BLOOD POC Reviewed date:12/20/2024 12:42:36 PM Interpretation: Performing Lab:[facility], [address] [place] [address] Notes/Report: PT, INR - [facility] 3.3 0.9-1.1 METER #: [id number] INTERNATIONAL NORMALIZED RATIO (INR) REFERENCE RANGES Reference [...] OC Reviewed date:12/20/2024 12:42:36 PM Interpretation: Performing Lab:[facility], [address] [place] [phone] Notes/Report: Prothrombin Time Whole Bld POC 39.7 11.1-13.5 sec INR WHOLE BLOOD POC Reviewed date:01/07/2025 05:06:41 AM Interpretation: Performing Lab:[facility], [address] [place] [address] Notes/Report: PT, INR - [facility] 3.0 0.9-1.1 METER #: [id number] INTERNATIONAL NORMALIZED RATIO (INR) REFERENCE RANGES Reference [...] OC Reviewed date:01/07/2025 05:06:41 AM Interpretation: Performing Lab:[facility], [address] [place] [address] Notes/Report: Prothrombin Time Whole Bld POC 35.8 11.1-13.5 sec INR WHOLE BLOOD POC Reviewed date:01/18/2025 11:11:48 AM Interpretation: Performing Lab:[facility], [address] [place] [address] Notes/Report: PT, INR - [facility] 2.1 0.9-1.1 METER #: [id number] INTERNATIONAL NORMALIZED RATIO (INR) REFERENCE RANGES Reference [...] OC Reviewed date:01/18/2025 11:11:48 AM Interpretation: Performing Lab:[facility], [address] [place] [phone] Notes/Report: Prothrombin Time Whole Bld POC 25.2 11.1-13.5 sec INR WHOLE BLOOD POC Reviewed date:02/04/2025 01:20:27 PM Interpretation: Performing Lab:[facility], [address] [place] [address] Notes/Report: PT, INR - [facility] 3.5 0.9-1.1 METER #: [id number] INTERNATIONAL NORMALIZED RATIO (INR) REFERENCE RANGES Reference [...] OC Reviewed date:02/04/2025 01:20:27 PM Interpretation: Performing Lab:[facility], [address] [place] [address] Notes/Report: Prothrombin Time Whole Bld POC 41.7 11.1-13.5 sec INR WHOLE BLOOD POC Reviewed date:02/09/2025 10:33:25 AM Interpretation: Performing Lab:[facility], [address] [place] [address] Notes/Report: PT, INR - [facility] 3.0 0.9-1.1 METER #: [id number] INTERNATIONAL NORMALIZED RATIO (INR) REFERENCE RANGES Reference [...] Prothrombin Time Whole Bld P OC Reviewed date:02/09/2025 10:33:25 AM Interpretation: Performing Lab:[address] [address] Notes/Report: Prothrombin Time Whole Bld POC 36.1 11.1-13.5 sec INR WHOLE BLOOD POC (Not yet reviewed by provider) Interpretation: Performing Lab:[address] [address] Notes/Report: PT, INR - Anti Coag Clinic 2.2 0.9-1.1 METER #: [id number] INTERNATIONAL NORMALIZED RATIO (INR) REFERENCE RANGES Reference [...] (Not yet reviewed by provider) Interpretation: Performing Lab:[address] [address] Notes/Report: Prothrombin Time Whole Bld POC 26.4 11.1-13.5 sec Reason For Referral No Information Medications Medication SIG (Take, Route, Frequency, Duration) Notes Start Date End Date Status Warfarin Sodium 4 MG 1 tablet Orally Onc e a day Active Gabapentin 100 MG 1 capsule Orally Onc e a day for 90 days Active diazePAM 5 MG 1 tablet if needed O rally every 4 hours for 1 days 02/16/2025 Active Atorvastatin Calcium 80 MG 1 tablet Oral ly Once a day Active FLUoxetine HCl 20 MG 1 capsule Orally On ce a day Active diazePAM 5 MG 1 tablet if needed O rally Once a day for 2 days 12/06/2024 Active Metoprolol Tartrate 25 MG 1 tablet with food Orally Twice a day Active Omeprazole 20 MG TAKE 1 CAPSULE 30 DC NUTES BEFORE MORNING MEAL ORALLY ONCE A DAY 90 DAYS for 30 Active diazePAM 5 MG 1 tablet Orally [...] Problem Status W/U Status Risk Notes Problem 2962242 Former smoker (Z87.891) Active confirmed He is unable to obtain cigarettes. She does not smoke since his stroke. She says she does not want to. Problem 39607381 Fibromyalgia (M79.7) Active confirmed Fibromyalgia lately has been low-grade she lives with a without a great deal difficulty. No medical therapies necessary. Problem Hyperglycemia (45627604) Hyperglycemia (R73.9) Active confirmed Problem 957702807 Gastro-esophagea l reflux disease without esophagitis (K21.9) Active confirmed She will continue on omeprazole and liquid antacid as needed. Problem 243389136 Encounter for screening mammogram for malignant neoplasm of breast (Z12.31) Active confirmed RI annual mammogram has been scheduled. Problem 33583435 Essential hypertension (I10) Active confirmed Low The most recent blood pressure was within normal limits and no change in her regimen was necessary. Problem 150968831 Anticoagulation adequate (Z79.01) Active confirmed She has had no bleeding and is compliant with her therapy. Problem CVA - Cerebrovascular accident (598903775) CVA (cerebral vascular accident) (I63.9) Active confirmed She is currently anticoagulated because of the stroke. She has a dense right hemiplegia, but no further neurological symptoms. She is awake and alert and responsive to questions. Her speech is fluent. Problem 993232318 Morbid obesity (E66.01) Active confirmed He discussed her overweight status. We discussed diet and nutrition. We made plans for her to lose weight at a rate of one half of a pound per week. Problem 548711357 Gallstones (K80.20) Active confirmed She remains free of symptoms from her cholelithiasis. Problem Right hemiplegia (637152126) Right hemiplegia (G81.91) Active confirmed There has been no change in the weakness of the right arm and leg. She remains confined to a wheelchair. The weakness in the right arm is dense. Problem 351109524 Type 2 diabetes mellitus without complication, without long-term current use of insulin (E11.9) Active confirmed Her hemoglob in A1c is 7.3. She has lost 3 pounds. We discussed continued weight loss through diet. No change in her medications was necessary. Problem 293729812 Acute abdominal pain (R10.9) Active confirmed Pain [...] Diagnosis Jose E Hubbard III, MD [address] [place] [address] [address] [place], [place] [address] 07/14/2024 Jose E Hubbard Essential hypertensi on I10 ; CVA (cerebral vascular accident) I63.9 ; Gastro-esophageal reflux disease without esophagitis K21.9 ; Anticoagulation adequate Z79.01 ; Former smoker Z87.891 ; Fibromyalgia M79.7 and Right hemiplegia G81.91 Jose E Hubbard III, MD [address] [place] [address] [place] [address] 10/11/2024 Jose E Hubbard Essential hypertensi on I10 ; CVA (cerebral vascular accident) I63.9 ; Fibromyalgia M79.7 ; Right hemiplegia G81.91 ; Former smoker Z87.891 ; Anticoagulation adequate Z79.01 ; Type 2 diabetes mellitus without complication, without long-term current use of insulin E11.9 and Obesity (BMI 30-39.9) E66.9 Jose E Hubbard III, MD [address] [place] [address] [place] [address] 10/30/2024 Jose E Hubbard Essential hypertensi on I10 ; Acute abdominal pain R10.9 ; Anticoagulation adequate Z79.01 ; CVA (cerebral vascular accident) I63.9 ; Gastro-esophageal reflux disease without esophagitis K21.9 ; Fibromyalgia M79.7 ; Type 2 diabetes mellitus without complication, without long-term current use of insulin E11.9 ; Right hemiplegia G81.91 and Former smoker Z87.891 Jose E Hubbard III, MD [address] [place] [address] [place] [address] 12/06/2024 Jose E Hubbard Essential hypertensi on [...] Fibromyalgia M79.7 Jose E Hubbard III, MD [address] [place] [address] [place] [address] 03/17/2024 Jose E Hubbard III, MD [address] [place] [address] [place] [address] 07/25/2024 Jose E Hubbard III, MD [address] [facility] [place] [address] 07/25/2024 Jose E Hubbard III, MD [address] [facility] [place] [address] 09/20/2024 Jose E Hubbard Essential hypertensi on I10 Jose E Hubbard III, MD [address] [facility] [place] [address] 09/26/2024 Jose E Hubbard III, MD [address] [facility] [place] [address] 11/14/2024 Jose E Hubbard Essential hypertensi on I10 Jose E Hubbard III, MD [address] [facility] [place] [address] 02/05/2025 Jose E Hubbard Essential hypertensi on I10 Jose E Hubbard III, MD [address] [facility] [place] [address] 02/15/2025 Jose E Hubbard III, MD [address] [place] [address] [place] [address] 02/16/2025 Jose E Hubbard Assessments Encounter Date Diagnosis [...] change in her regimen was necessary. 07/14/2024 Gastro-esophageal reflux disease without esophagitis [...] No change in her medications was necessary. 07/14/2024 Anticoagulation adequate (ICD-10 - Z79.01) She [...] Z12.31) RI annual mammogram has been scheduled. 07/14/2024 Former smoker (ICD-1 0 - Z87.891) [...] omeprazole and liquid antacid as needed. 07/14/2024 Right hemiplegia (ICD-10 - G81.91) There [...] and is compliant with her therapy. 10/11/2024 Obesity (BMI 30-39.9 ) (ICD-10 - [...] CBC w DIFF 10/13/2018 CBC w DIFF 10/23/2021 CBC w DIFF 11/10/2021 CBC w DIFF 06/15/2019 PROTHROMBIN TIME (PT, INR) 04/15/2020 URINE CULTURE [...] Microalbumin, Random 07/14/2024 INR WHOLE BLOOD POC 03/07/2025 Prothrombin Time Whole Bld POC T Spot TB 08/04/2022 MM tomosynthesis screening BI 12/06/2024 US abdomen complete 07/08/2022 Hemoglobin A1c 12/06/2024 Hemoglobin A1c 07/14/2024 Next Appt Details Provider Name:Jose E Hubbard , 03/14/2025 10:15:00 AM, [address] [facility] [place], [place], [address], Provider Name:Jose E Hubbard , 07/17/2025 10:00:00 AM, [address] [place] [address] [place], [place], [address], Insurance Providers Payer Name Payer Address Payer Phone Subscriber Number Group Number Insured Name Patient Relationship to Insured Coverage Start Date Coverage End Date MEDICARE NGS [address] [place] [address] [id number] Jose Malu Self - patient is the insured [place] [address] [place] [id number] JoseMalu Self - patient is the insured [...]
== END 2025-03-07 10:32 | disposition home or self-care (01) ==
LOC: HO.ACS 10:18
PROVIDERS: PCP Internal Medicine Medical Oncology; Visit Provider Internal Medicine Medical Oncology
DX: Z79.01 Long term (current) use of anticoagulants (principal)

== ENCOUNTER → 2025-03-07 10:18 | Outpatient (BNVA) | payer MEDICARE, SELFPAY | PROVIDERS: PCP Internal Medicine Medical Oncology; Visit Provider Internal Medicine Medical Oncology | DX: Z86.73 Personal history of transient ischemic attack (TIA), and cerebral infarction without residual deficits (principal); Z51.81 Encounter for therapeutic drug level monitoring; Z79.01 Long term (current) use of anticoagulants | CPT/HCPCS: 85610; 99211 ==

== ENCOUNTER 2025-03-21 10:19 | Outpatient (AMB) | payer MEDICARE, SELFPAY ==
--- OUTSIDE RECORDS SUMMARY | 2024-09-26 04:54 | XMS_ITS ---
Author Organization Jose E Hubbard III, MD Address [address] [place] [address] [place] [address] Care Team Providers Care Rug Setter [place] Name Role Phone Dr. Jose E Hubbard III Primary Care Provider Medications Medication SIG (Take, Route, Frequency, Duration) Notes Start Date End Date Status Atorvastatin Calcium 80 MG 1 tablet Oral ly Once a day for 90 days Active Social History Sex Assigned At : Social History Observation Description Sex Assigned At Female Encounters Encounter Location Date Provider Diagnosis Jose E Hubbadr III, MD [address] [place] [address] [place] [address] 09/26/2024 Jose E Hubbard Plan Of Treatment Medication Medication Name Sig Start Date Stop Date Notes Atorvastatin Calcium 80 MG 1 tablet Oral ly Once a day for 90 days Next Appt Details Provider Name:Jose E Hubbard , 06/14/2025 09:45:00 AM, [address] [place] [address] [place], [address], Provider Name:Jose E Hubbard , 07/17/2025 10:00:00 AM, [address] [place] [address] [place], [address], Progress Notes * Malu GARCIADOB:1955 ([age] yo F)Acc No.[id number]:09/26/2024 Patient: Malu BOJORQUEZ :1955 A ge:68 Y S ex:Female Address:[address] [place] [address] [place] [address] * Refills Refill Atorvastatin Calcium Tablet, 80 MG, Orally, 90 Tablet, 1 tablet, Once a day, 90 days, Refills=3 * true * Date: Generated for Michael junior/Kiko/Petra on: 05/21/2024 11:57 AM EST
--- OUTSIDE RECORDS SUMMARY | 2024-10-11 05:00 | XMS_ITS ---
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 Jose E Hubbard III Primary Care Provider Allergies Allergen (clinical drug ingredient) Drug/Non Drug Allergy documented on EMR Reaction Allergy Type Onset Date Status acetaminophen / oxycodone Percocet Unknown Drug Allergy Active miconazole Monistat 3 burning Drug Allergy Activ e REASON FOR VISIT Hypertension, History of stroke Left middle cerebral artery, Anticoagulated, GERD, Diabetes, Obesity, Right hemiplegia Medications Medication SIG (Take, Route, Frequency, Duration) Notes Start Date End Date Status Omeprazole 20 MG 1 capsule 30 minutes before morning meal Orally Once a day Active Docusate Sodium Acti ve Warfarin Sodium 4 MG as directed Orally Once a day Active Gabapentin 100 MG 1 capsule Orally Onc e a day Active diazePAM 5 MG 1 tablet Orally ever y 4 hours for anxiety 01/12/2023 Active FLUoxetine HCl 20 MG 1 capsule Orally On ce a day Active Atorvastatin Calcium 80 MG 1 tablet Oral ly Once a day Active metFORMIN HCl 500 MG 1 tablet Orally Onc e a day 07/25/2024 Active Metoprolol Tartrate 25 MG 1 tablet with food Orally Twice a day Active Social History Tobacco Use: [...] Non-User Ex-cigaret te smoker Vital Signs Temperature 98.0 degrees Fahrenheit 10/12/19 25 Blood pressure systolic 130 mm Hg 10/12/19 25 Blood pressure diastolic 74 mm Hg 025 Heart Rate 79 /min 10/11/2024 Height 58 in 10/11/2024 Weight 178 lbs 10/11/2024 BMI 37.2 kg/m2 10/11/2024 Encounters Encounter Location Date Provider Diagnosis Jose E Hubbard III, MD [address] [place] [address] [address] [facility] [address] 10/11/2024 Jose E Hubbard Essential hypertensi on I10 ; CVA (cerebral vascular accident) I63.9 ; Fibromyalgia M79.7 ; Right hemiplegia G81.91 ; Former smoker Z87.891 ; Anticoagulation adequate Z79.01 ; Type 2 diabetes mellitus without complication, without long-term current use of insulin E11.9 and Obesity (BMI 30-39.9) E66.9 Assessments Encounter Date Diagnosis (ICD Code) Assessment Notes Treat ment Notes Treatment Clinical Notes 10/11/2024 Essential hypertension (ICD-10 - I10) Her blood pressure was normal and no change in her regimen was necessary. 10/11/2024 CVA (cerebral vascular accident) (ICD-10 - I63.9) She is currently anticoagulated because of the stroke. She has a dense right hemiplegia, but no further neurological symptoms. She is awake and alert and responsive to questions. Her speech is fluent. 10/11/2024 Fibromyalgia (ICD-10 - M79.7) Fibromyalgia lately has been low-grade she lives with a without a great deal difficulty. No medical therapies necessary. 10/11/2024 Right hemiplegia (ICD-10 - G81.91) There has been no change in the weakness of the right arm and leg. She remains confined to a wheelchair. The weakness in the right arm is dense. 10/11/2024 Former smoker (ICD-1 0 - Z87.891) He is unable to obtain cigarettes. She does not smoke since his stroke. She says she does not want to. 10/11/2024 Anticoagulation adequate (ICD-10 - Z79.01) She has had no bleeding and is compliant with her therapy. 10/11/2024 Type 2 diabetes mellitus without complication, without long-term current use of insulin (ICD-10 - E11.9) I have ordered comprehensive blood work with a hemoglobin A1c fasting glucose lipid profile and microalbumin. No change in her medications was made. 10/11/2024 Obesity (BMI 30-39.9 ) (ICD-10 - E66.9) Plan Of Treatment Medication Medication Name Sig Start Date Stop Date Notes Omeprazole 20 MG 1 capsule 30 minutes before morning meal Orally Once a day Docusate Sodium Warfarin Sodium 4 MG as directed Orally Once a day Gabapentin 100 MG 1 capsule Orally Once a day diazePAM 5 MG 1 tablet Orally ever y 4 hours for anxiety 01/12/2023 FLUoxetine HCl 20 MG 1 capsule Orally Once a day Atorvastatin Calcium 80 MG 1 tablet Orally Once a day metFORMIN HCl 500 MG 1 tablet Orally Once a day 07/25/2024 Metoprolol Tartrate 25 MG 1 tablet with food Orally Twice a day Next Appt Details Follow Up: 2 Months, Reason: OV Provider Name:Jose E Hubbard , 06/14/2025 09:45:00 AM, [address] [place] [address] [address], [place], [address], Provider Name:Jose E Hubbard , 07/17/2025 10:00:00 AM, [address] [place] [address] [address], [place], [address], Progress Notes * Malu GARCIADOB:1955 ([age] yo F)Acc No.[id number]:10/11/2024 Progress Notes Patient: Malu BOJORQUEZ Provider: Una Hubbard MD :1955 A ge:68 Y S ex:Female Date:10/11/2024 Address:[address] [place] [address] F[place]IE [place]lao [id number] Subjective: * Chief Complaints: * H ypertensionHistory of stroke Left middle cerebral arteryAnticoagulatedGERDDiabetesObesityRight hemiplegia * HPI: C OVID-19 Screening: She returns to the office for a scheduled visit to manage her medical issues. She has lost 10 pounds through dietary modification at home.Her blood pressure is normal. Her appetite is good. Her body mass index is 37.Her reflux symptoms are controlled with medication. She continues on anticoagulation without bleeding. Questions H ave you had any new onset fever, chills, cough, congestion, sore throat, shortness of breath, muscle aches? N o * ROS: G eneral/Constitutional: pain o nly normal aches and pains. C hills d enies.?Fatigue a dmits. F ever d enies. E NT: Decreased hearing d enies. R espiratory: Cough d enies. C ardiovascular: Chest pain with exertion d enies. D yspnea on exertion?denies. S hortness of breath d enies. G astrointestinal: Constipation o ccasional. D ecreased appetite d enies. D iarrhea d enies. H eartburn o ccasional. N ausea d enies. R ectal bleeding d enies. V omiting d enies. H ematology: bruising d enies. p etechiae d enies. S wollen glands n one have been noted. G enitourinary: Frequent urination d enies. M usculoskeletal: Muscle aches d enies. P ainful joints d enies. S ciatica d enies. W eakness d enies. S kin: Itching d enies. R henry d enies. S kin lesion(s)?denies. N eurologic: Difficulty speaking d enies. D izziness d enies.?Headache d enies. L ow back pain d enies. P sychiatric: Depressed mood d enies. * Medical History: * Surgical History: N egative colonoscopy, [facility], Dr. York 03/2022 * Hospitalization/Major Diagno stic Procedure: s miguel a 07/05 * Family History: F ather: 50 yrs, epilepsy. M other: 48 yrs, complications from surgery.?Siblings: alive, Sister have breast cancer and ovarian cancer, diagnosed with Cancer. 4 brother(s) , 3 sister(s) . 1 son(s) . . A son has diabetes. A brother of liver cancer. A sister has ovarian cancer. She is not aware of any family history of mental illness or substance use disorder, or addictions. * Social History: T obacco Use: T obacco Use/Smoking P atient is a f ormer smoker H ow long has it been since you last smoked??> 10 years A dditional Findings: Tobacco Non-User E x-cigarette smoker S he lives in [place]. She was born in [place], [place]. She has been since 1997 and has 1 child. * Medications: T akingWarfarin Sodium 4 MG Tablet as directed Orally Once a day Docusate Sodium diazePAM 5 MG Tablet 1 tablet Orally every 4 hours for anxiety Gabapentin 100 MG Capsule 1 capsule Orally Once a day Omeprazole 20 MG Capsule Delayed Release 1 capsule 30 minutes before morning meal Orally Once a day metFORMIN HCl 500 MG Tablet 1 tablet Orally Once a day FLUoxetine HCl 20 MG Capsule 1 capsule Orally Once a day Metoprolol Tartrate 25 MG Tablet 1 tablet with food Orally Twice a day Atorvastatin Calcium 80 MG Tablet 1 tablet Orally Once a day Medication List reviewed and reconciled with the patientTaking Warfarin Sodium 4 MG Tablet as directed Orally Once a day Taking Docusate Sodium Taking diazePAM 5 MG Tablet 1 tablet Orally every 4 hours for anxiety Taking Gabapentin 100 MG Capsule 1 capsule Orally Once a day Taking Omeprazole 20 MG Capsule Delayed Release 1 capsule 30 minutes before morning meal Orally Once a day Taking metFORMIN HCl 500 MG Tablet 1 tablet Orally Once a day Taking FLUoxetine HCl 20 MG Capsule 1 capsule Orally Once a day Taking Metoprolol Tartrate 25 MG Tablet 1 tablet with food Orally Twice a day Taking Atorvastatin Calcium 80 MG Tablet 1 tablet Orally Once a day Medication List reviewed and reconciled with the patient * Allergies: P ercocetMonistat 3: burningno[Allergies Verified] Objective: * Vitals: H t: 58, Wt:178, BMI:37.2, BP:130/74, HR:79, Temp:98.0, Wt-k.74. * P ast Orders: Lab:Hemoglobin A1c * Collection Date 10/04/2024 02/08/2024 04/01/2023 Collection Time 10:15 AM 10:06 AM 09:59 AM Order Date 10/04/2024 02/08/2024 04/01/2023 Hemoglobin A1c % 7.3 H (Ref Range: <6.0 %) 7.5 H (Ref Range: <6.0 %) 7.4 H (Ref Range: <6.0 %) Estimated Average Glucose 163 (Ref Range: mg/dL) 169 (Ref Range: mg/dL) 166 (Ref Range: mg/dL) * Lab:Complete Blood Count Aut o Diff * Collection Date 10/04/2024 02/08/2024 07/07/2023 Collection Time 10:15 AM 10:06 AM 10:24 AM Order Date 10/04/2024 02/08/2024 07/07/2023 White Blood Count 7.6 (Ref Range: 4.8-10.8 X10*3/uL) 9.2 (Ref Range: 4.8-10.8 X10*3/uL) 7.4 (Ref Range: 4.8-10.8 X10*3/uL) Red Blood Count 4.69 (Ref Range: 4.20-5.50 X10*6/uL) 4.67 (Ref Range: 4.20-5.50 X10*6/uL) 4.98 (Ref Range: 4.20-5.50 X10*6/uL) Hemoglobin 12.4 (Ref Range: 12.0-16.0 g/dl) 12.5 (Ref Range: 12.0-16.0 g/dl) 13.0 (Ref Range: 12.0-16.0 g/dl) Hematocrit 40.5 (Ref Range: 37.0-47.0 %) 41.2 (Ref Range: 37.0-47.0 %) 42.8 (Ref Range: 37.0-47.0 %) Mean Corpuscular Volume 86.4 (Ref Range: 80.0-98.0 fL) 88.2 (Ref Range: 80.0-98.0 fL) 85.9 (Ref Range: 80.0-98.0 fL) Mean Corpuscular Hemoglobin 26.4 L (Ref Range: 27.0-33.0 pg) 26.8 L (Ref Range: 27.0-33.0 pg) 26.1 L (Ref Range: 27.0-33.0 pg) Mean Corpuscular HGB Conc 30.6 L (Ref Range: 31.0-35.0 g/dl) 30.3 L (Ref Range: 31.0-35.0 g/dl) 30.4 L (Ref Range: 31.0-35.0 g/dl) Red Cell Distribution Width 15.9 (Ref Range: 11.0-16.0 %) 15.9 (Ref Range: 11.0-16.0 %) 15.2 (Ref Range: 11.0-16.0 %) Platelet Count 288 (Ref Range: 160-400 X10*3/uL) 231 (Ref Range: 160-400 X10*3/uL) 190 (Ref Range: 160-400 X10*3/uL) Mean Platelet Volume 11.7 (Ref Range: 9.4-12.3 fL) 11.9 (Ref Range: 9.4-12.3 fL) 12.2 (Ref Range: 9.4-12.3 fL) Neutrophils Percent Auto 62.5 (Ref Range: 45-73 %) 54.5 (Ref Range: 45-73 %) 60.6 (Ref Range: 45-73 %) Imm Gran Pct Auto 0.4 (Ref Range: 0.0-0.4 %) 1.2 H (Ref Range: 0.0-0.4 %) 0.5 H (Ref Range: 0.0-0.4 %) Lymphocytes Percent Auto 28.5 (Ref Range: 20-40 %) 34.5 (Ref Range: 20-40 %) 29.2 (Ref Range: 20-40 %) Monocytes Percent Auto 7.4 (Ref Range: 2-11 %) 8.6 (Ref Range: 2-11 %) 8.1 (Ref Range: 2-11 %) Eosinophils Percent Auto 0.8 (Ref Range: 0-4 %) 0.9 (Ref Range: 0-4 %) 1.2 (Ref Range: 0-4 %) Basophils Percent Auto 0.4 (Ref Range: 0-2 %) 0.3 (Ref Range: 0-2 %) 0.4 (Ref Range: 0-2 %) NRBC Pct Auto 0.0 (Ref Range: 0.0-0.2 /100WBC) 0.0 (Ref Range: 0.0-0.2 /100WBC) 0.0 (Ref Range: 0.0-0.2 /100WBC) Neutrophils Absolute Auto 4.8 (Ref Range: 2.0-8.3 x10*3/uL) 5.0 (Ref Range: 2.0-8.3 x10*3/uL) 4.5 (Ref Range: 2.0-8.3 x10*3/uL) Imm Gran Abs Auto 0.03 (Ref Range: 0.00-0.03 X10*3/uL) 0.11 H (Ref Range: 0.00-0.03 X10*3/uL) 0.04 H (Ref Range: 0.00-0.03 X10*3/uL) Lymphocytes Absolute Auto 2.2 (Ref Range: 1.2-4.9 X10*3/uL) 3.2 (Ref Range: 1.2-4.9 X10*3/uL) 2.2 (Ref Range: 1.2-4.9 X10*3/uL) Monocytes Absolute Auto 0.6 (Ref Range: 0.1-1.2 X10*3/uL) 0.8 (Ref Range: 0.1-1.2 X10*3/uL) 0.6 (Ref Range: 0.1-1.2 X10*3/uL) Eosinophils Absolute Auto 0.1 (Ref Range: 0.0-0.4 X10*3/uL) 0.1 (Ref Range: 0.0-0.4 X10*3/uL) 0.1 (Ref Range: 0.0-0.4 X10*3/uL) Basophils Absolute Auto 0.0 (Ref Range: 0.0-0.2 X10*3/uL) 0.0 (Ref Range: 0.0-0.2 X10*3/uL) 0.0 (Ref Range: 0.0-0.2 X10*3/uL) NRBC Abs Auto 0.000 (Ref Range: 0.0-0.012 X10*3/uL) 0.000 (Ref Range: 0.0-0.012 X10*3/uL) 0.000 (Ref Range: 0.0-0.012 X10*3/uL) * Lab:Lipid Panel * Collection Date 10/04/2024 02/08/2024 07/07/2023 Collection Time 10:15 AM 10:06 AM 10:24 AM Order Date 10/04/2024 02/08/2024 07/07/2023 Triglycerides 61 (Ref Range: <150 mg/dL) 75 (Ref Range: <150 mg/dL) 75 (Ref Range: <150 mg/dL) Cholesterol 78 (Ref Range: <200 mg/dL) 90 (Ref Range: <200 mg/dL) 104 (Ref Range: <200 mg/dL) LDL Cholesterol Calculated 33 (Ref Range: <100 mg/dL) 38 (Ref Range: <100 mg/dL) 54 (Ref Range: <100 mg/dL) HDL Cholesterol 33 L (Ref Range: >40 mg/dL) 37 L (Ref Range: >40 mg/dL) 35 L (Ref Range: >40 mg/dL) * Lab:INR WHOLE BLOOD POC * Collection Date 10/04/2024 09/27/2024 09/13/2024 09/06/2024 08/21/2024 08/07/2024 08/01/2024 07/18/2024 Collection Time 09:25 AM 10:23 AM 10:09 AM 10:13 AM 10:25 AM 10:23 AM 09:59 AM 10:38 AM Order Date 10/04/2024 09/27/2024 09/13/2024 09/06/2024 08/07/2024 08/01/2024 07/18/2024 INR WHOLE BLOOD POC 3.2 H (Ref Range: 0.9-1.1) 3.2 H (Ref Range: 0.9-1.1) 3.0 H (Ref Range: 0.9-1.1) 4.5 H (Ref Range: 0.9-1.1) 2.8 H (Ref Range: 0.9-1.1) 2.5 H (Ref Range: 0.9-1.1) 1.7 H (Ref Range: 0.9-1.1) 2.0 H (Ref Range: 0.9-1.1) * Lab:Prothrombin Time Whole B ld POC * Collection Date 10/04/2024 09/27/2024 09/13/2024 09/06/2024 08/21/2024 08/07/2024 08/01/2024 07/18/2024 Collection Time 09:25 AM 10:23 AM 10:09 AM 10:13 AM 10:25 AM 10:23 AM 09:59 AM 10:38 AM Order Date 10/04/2024 09/27/2024 09/13/2024 09/06/2024 08/07/2024 08/01/2024 07/18/2024 Prothrombin Time Whole Bld POC 38.7 H (Ref Range: 11.1-13.5 sec) 38.7 H (Ref Range: 11.1-13.5 sec) 36.2 H (Ref Range: 11.1-13.5 sec) 53.6 H (Ref Range: 11.1-13.5 sec) 33.4 H (Ref Range: 11.1-13.5 sec) 29.5 H (Ref Range: 11.1-13.5 sec) 20.4 H (Ref Range: 11.1-13.5 sec) 24.5 H (Ref Range: 11.1-13.5 sec) * Lab:Marleny cobb Fast * Collection Date 10/04/2024 02/08/2024 07/07/2023 Collection Time 10:15 AM 10:06 AM 10:24 AM Order Date 10/04/2024 02/08/2024 07/07/2023 Sodium 144 (Ref Range: 135-145 mmol/L) 143 (Ref Range: 135-145 mmol/L) 142 (Ref Range: 135-145 mmol/L) Bilirubin Total 0.3 (Ref Range: 0.0-1.0 mg/dL) 0.3 (Ref Range: 0.0-1.0 mg/dL) 0.3 (Ref Range: 0.0-1.0 mg/dL) Aspartate Amino Transferase 42 H (Ref Range: 5-31 U/L) 35 H (Ref Range: 5-31 U/L) 33 H (Ref Range: 5-31 U/L) Alanine Aminotransferase 43 H (Ref Range: 0-31 U/L) 35 H (Ref Range: 0-31 U/L) 32 H (Ref Range: 0-31 U/L) Total Protein 7.0 (Ref Range: 6.5-8.0 g/dL) 7.2 (Ref Range: 6.5-8.0 g/dL) 7.5 (Ref Range: 6.5-8.0 g/dL) Albumin Level 3.9 (Ref Range: 3.5-5.0 g/dL) 4.0 (Ref Range: 3.5-5.0 g/dL) 4.0 (Ref Range: 3.5-5.0 g/dL) Alkaline Phosphatase 147 H (Ref Range: 39-117 U/L) 160 H (Ref Range: 39-117 U/L) 170 H (Ref Range: 39-117 U/L) Potassium 4.2 (Ref Range: 3.3-5.1 mmol/L) 4.3 (Ref Range: 3.3-5.1 mmol/L) 4.1 (Ref Range: 3.3-5.1 mmol/L) Chloride 110 H (Ref Range: 96-108 mmol/L) 112 H (Ref Range: 96-108 mmol/L) 111 H (Ref Range: 96-108 mmol/L) Carbon Dioxide 27 (Ref Range: 22-29 mmol/L) 24 (Ref Range: 22-29 mmol/L) 23 (Ref Range: 22-29 mmol/L) Anion Gap 11 L (Ref Range: 12-20) 11 L (Ref Range: 12-20) 12 (Ref Range: 12-20) Blood Urea Nitrogen 27 H (Ref Range: 9-16 mg/dL) 29 H (Ref Range: 9-16 mg/dL) 21 H (Ref Range: 9-16 mg/dL) Creatinine 0.70 (Ref Range: 0.5-1.4 mg/dL) 0.78 (Ref Range: 0.5-1.4 mg/dL) 0.70 (Ref Range: 0.5-1.4 mg/dL) Estimated Glomerular Filt Rate > 60 > 60 > 60 Glucose Fasting 127 H (Ref Range: 60-99 mg/dL) 130 H (Ref Range: 60-99 mg/dL) 126 H (Ref Range: 60-99 mg/dL) Calcium 8.3 L (Ref Range: 8.4-10.2 mg/dL) 8.6 (Ref Range: 8.4-10.2 mg/dL) 8.6 (Ref Range: 8.4-10.2 mg/dL) * Lab:Microalbumin, Random * Collection Date 10/04/2024 04/01/2023 Collection Time 10:09 AM 10:00 AM Order Date 10/04/2024 04/01/2023 Creatinine Urine 132.65 (Ref Range: mg/dL) 103.27 (Ref Range: mg/dL) Microalbumin Urine 13.0 (Ref Range: mg/L) 11.0 (Ref Range: mg/L) Microalbum Creatinine Ratio Ur 9.8 (Ref Range: <30 ug/mg cr) 10.6 (Ref Range: <30 ug/mg cr) * Examination: G eneral Examination: GENERAL APPEARANCE: p leasant, well nourished, well developed, in no acute distress, calm and relaxed, obese, woman seen and examined in a wheelchair.. HEAD: a traumatic, normocephalic. EYES: e alonzo, perrla, anicteric, conjugate. EARS: n ormal. NOSE: s eptum intact. ORAL CAVITY: n ormal, unremarkable. NECK/THYROID: n o jugular venous distention, no carotid bruit, thyroid normal. LYMPH NODES: n o enlarged lymph nodes,spleen normal. SKIN: n o suspicious lesions, anicteric. HEART: n o clicks, gallops, murmurs, or rubs, regular rhythm, S1, S2 normal, no s3, or vascular bruits. LUNGS: c lear to auscultation . BREASTS: N ot examined. ABDOMEN: b owel sounds normal, no ascites, no organomegaly, no mass, centripital obesity. RECTAL EXAM: n ot examined. MUSCULOSKELETAL: e xtremities unremarkable, no clubbing, cyanosis or edema, Right Hemiparesthesia with contracture shoulder and elbow joints . PERIPHERAL PULSES: n ormal. NEUROLOGIC: a lert and oriented, cranial nerves 2-12 grossly intact, deep tendon reflexes 2+ Left 3+ right, motor strength normal Lef t upper and lower extremities, sensory exam intact, Right hemiplegia. PSYCH: a lert, oriented. Assessment: * Assessment: 1. C VA (cerebral vascular accident) - I63.9 (Primary) N otes :She is currently anticoagulated because of the stroke. She has a dense right hemiplegia, but no further neurological symptoms. She is awake and alert and responsive to questions. Her speech is fluent. 2 . E ssential hypertension - I10 N otes :Her blood pressure was normal and no change in her regimen was necessary. 3 . F ibromyalgia - M79.7 N otes :Fibromyalgia lately has been low-grade she lives with a without a great deal difficulty. No medical therapies necessary. 4 . R ight hemiplegia - G81.91 N otes :There has been no change in the weakness of the right arm and leg. She remains confined to a wheelchair. The weakness in the right arm is dense. 5 . F ormer smoker - Z87.891 N otes :He is unable to obtain cigarettes. She does not smoke since his stroke. She says she does not want to. 6 . A nticoagulation adequate - Z79.01 N otes :She has had no bleeding and is compliant with her therapy. 7 . T ype 2 diabetes mellitus without complication, without long-term current use of insulin - E11.9 N otes :I have ordered comprehensive blood work with a hemoglobin A1c fasting glucose lipid profile and microalbumin. No change in her medications was made. 8 . O besity (BMI 30-39.9) - E66.9 Plan: * Treatment: 2. O thers Continue Atorvastatin Calcium Tablet, 80 MG, 1 tablet, Orally, Once a day; C ontinue FLUoxetine HCl Capsule, 20 MG, 1 capsule, Orally, Once a day; C ontinue metFORMIN HCl Tablet, 500 MG, 1 tablet, Orally, Once a day; C ontinue Docusate Sodium; C ontinue diazePAM Tablet, 5 MG, 1 tablet, Orally, every 4 hours for anxiety. * Procedure Codes: * Preventive Medicine: Counseling: C are goal follow-up plan: Counseling for abnormal BMI given Y es Above Normal BMI Follow-up D ietary management education, guidance, and counseling, Dietary needs education, Exercise promotion: strength training, Exercise promotion: stretching, Feeding regime, Giving encouragement to exercise, Lifestyle education regarding diet, Nutrition / feeding management, Nutrition therapy, Prescribed activity/exercise education, Prescribed diet education, Prescribed dietary intake, Special diet education, Weight monitoring , Intervention, Order not done: Medical or Other reason not done S moking/Tobacco Use Patient counseled on the dangers of tobacco use and urged to quit. 0 10/11/2024 DM Care Plan: P atient Lifestyle Goals P atient wants to be able to manage diabetes without too much effort. T reatment Goals H bA1C < 7.0, Blood Sugars less than < 115. B arriers n o barriers. S elf-Managment Goals W ork on weight loss, with a goal of losing 1 lb per week. * Follow Up: 2 Months (Reason: OV) * Images: * Sign off status: Completed true * Provider: Una Hubbard MD Date: 0 10/11/2024 Generated for Jerii ng/Ladonnag/eTransmitting on: 1 05/21/2024 11:58 AM EST History and Physical Notes * HPI (History of Present Illness) Category Sub-Category Detail Notes COVID-19 Screening Questions Have you had any new onset fever, chills, cough, congestion, sore throat, shortness of breath, muscle aches?: No Examination Category Sub-Category Detail Notes General Examination GENERAL APPEARANCE: pleasant , well nourished, well developed, in no acute distress, calm and relaxed, obese, woman seen and examined in a wheelchair. HEAD: atraumatic, normocep halic EYES: eomi, perrla, [...] 2-12 grossly intact, deep tendon reflexes 2+ Left 3+ right, motor strength normal Lef t upper and lower extremities, sensory exam intact, Right hemiplegia SKIN: no suspicious lesion s, anicteric PERIPHERAL PULSES: normal BREASTS: Not examined MUSCULOSKELETAL: extremities unremark able, no clubbing, cyanosis or edema, Right Hemiparesthesia with contracture shoulder and elbow joints LYMPH NODES: no enlarged lymph no tj,spleen normal RECTAL EXAM: not examined PSYCH: alert, oriented ORAL CAVITY: normal, unremarkable
--- OUTSIDE RECORDS SUMMARY | 2024-10-30 08:30 | XMS_ITS ---
Author Organization Jose E Hubbard III, MD Address [address] [place] [address] [address] [place] [address] Care Team Providers Care Bat Carrier Name Role Phone Dr. Jose E Hubbard [...] Provider Diagnosis Jose E Hubbard III, MD [address] [place] [address] DR [place], IFEANYI [address] 10/30/2024 Jose E Hubbard Essential hypertensi on [...] Name:Jose E Hubbard , 06/14/2025 09:45:00 AM, [address] [place] [address] [address], [place], [address], Provider Name:Jose E Hubbard , 07/17/2025 10:00:00 AM, [address] [place] [address] [address], [place], [address], Progress Notes * Malu GARCIADOB:1955 ([age] yo F)Acc No.[id number]:10/30/2024 Patient: Malu BOJORQUEZ Provider: Una Hubbard MD :1955 A ge:69 Y S ex:Female Date:10/30/2024 Address:[address] [place] [address] YEN Billy [phone] Subjective: * Chief Complaints: * A bdominal [...] of provider rendering services: { ...} [address] [facility] [address] L ocation of patient: mac barajas listed [...] History: * Surgical History: N egative colonoscopy, [facility], Dr. York 03/2022 * Hospitalization/Major Diagno [...] E x-cigarette smoker S he lives in [place]. She was born in [place]. She has been since 1997 and [...] 10/30/2024 Generated for Michael junior/Kiko/Eugenieitting on: 1 05/21/2024 11:56 AM EST History and Physical Notes * HPI (History of Present Illness) Category Sub-Category Detail Notes Telehealth Location of [facility] rendering services:: {...} [address] [place], [place] [address] Location of patient:: address listed in demographics [...]
--- OUTSIDE RECORDS SUMMARY | 2024-11-14 04:22 | XMS_ITS ---
Author Organization Jose E Hubbard III, MD Address [address] [place] [address] [place] [address] Care Team Providers Care Electrician Powerhouse Name Role Phone Dr. Jose E Hubbard [...] Provider Diagnosis Jose E Hubbard III, MD [address] [place] [address] [place] [address] 11/14/2024 Jose E Hubbard Essential hypertensi on [...] Name:Jose E Hubbard , 06/14/2025 09:45:00 AM, [address] [place] [address] [place], [address], Provider Name:Jose E Hubbard , 07/17/2025 10:00:00 AM, [address] [place] [address] [place], [address], Progress Notes * Elmer GARCIA:1955 ([age] yo F)Acc No.[id number]:11/14/2024 Patient: Malu BOJORQUEZ :1955 A ge:69 Y S ex:Female Address:[address] [place] [address] * Refills Refill Warfarin Sodium Tablet, 4 MG, Orally, 90 Tablet, 1 tablet, Once a day, 90 days, Refills=3 * true * Date: Generated for Michael junior/Kiko/Eugenieitting on: 05/21/2024 11:56 AM EST
--- OUTSIDE RECORDS SUMMARY | 2024-12-06 05:00 | XMS_ITS ---
Author Organization Jose E Hubbard III, MD Address [address] [place] [address] [address] [place] [address] Care Team Providers Care Gas Pump Attendant Name Role Phone Dr. Jose E Hubbard [...] Diagnosis Jose E Hubbard III, MD [address] [place] [address] [place] [address] 12/06/2024 Jose E Hubbard Essential hypertensi on [...] Name:Jose E Hubbard , 06/14/2025 09:45:00 AM, [address] [place] [address] [address], [place], [address], Provider Name:Jose E Hubbard , 07/17/2025 10:00:00 AM, [address] [place] [address] [address], [place], [address], Progress Notes * Elmer GARCIA:1955 ([age] yo F)Acc No.[id number]:12/06/2024 Progress Notes Patient: Malu BOJORQUEZ Provider: Una Hubbard MD :1955 A ge:69 Y S ex:Female Date:12/06/2024 Address:[address] [place], [place] [phone] Subjective: * Chief Complaints: * H [...] E x-cigarette smoker S he lives in [place]. She was born in [place], [place]. She has been since 1997 and [...] mg/dL) 166 (Ref Range: mg/dL) * Lab:[facility] [place]. Pane l Fast * Collection Date 10/04/2024 [...] 0 12/06/2024 Generated for Michael junior/Kiko/Eugenieitting on: 05/21/2024 11:57 AM EST History and Physical Notes * [...]
--- OUTSIDE RECORDS SUMMARY | 2025-02-05 08:20 | XMS_ITS ---
Author Organization Jose E Hubbard III, MD Address [address] [place] [address] [place] [address] Care Team Providers Care Rejector Name Role Phone Dr. Jose E Hubbard III Primary Care Provider [phone] REASON FOR VISIT Rx Refill Medications Medication SIG (Take, Route, Fr equency, Duration) Notes Start Date End Date Status Gabapentin 100 MG 1 capsule Orally Onc e a day for 90 days Active Social History Sex Assigned At : Social History Observation Description Sex Assigned At Female Encounters Encounter Location Date Provider Diagnosis Jose E Hubbard III, MD [address] [place] [address] [place] [address] 02/05/2025 Jose E Hubbard Essential hypertensi on [...] Name:Jose E Hubbard , 06/14/2025 09:45:00 AM, [address] [place] [address] [place], [address], Provider Name:Jose E Hubbard , 07/17/2025 10:00:00 AM, [address] [place] [address] [place], [address], Progress Notes * Elmer GARCIA:1955 ([age] yo F)Acc No.[id number]:02/05/2025 Patient: Malu BOJORQUEZ :1955 A ge:69 Y S ex:Female Address:[address] [place] [phone] * Refills Refill Gabapentin Capsule, 100 MG, Orally, 90, 1 capsule, Once a day, 90 days, Refills=3 * true * Date: Generated for Michael junior/Kiko/Vonsmitting on: 05/21/2024 11:58 AM EST
--- OUTSIDE RECORDS SUMMARY | 2025-02-15 06:47 | XMS_ITS ---
Author Organization Jose E Hubbard III, MD Address [address] [place] [address] [place] [address] Care Team Providers Care Grain Farmer Name Role Phone Dr. Jose E Hubbard III Primary Care Provider REASON FOR VISIT Rx Request Social History Sex Assigned At : Social History Observation Description Sex Assigned At Female Encounters Encounter Location Date Provider Diagnosis Jos eE Hubbard III, MD [address] [place] [address] [place] [address] 02/15/2025 Jose E Hubbard Plan Of Treatment Next Appt Details Provider Name:Jose E Hubbard , 06/14/2025 09:45:00 AM, [address] [place] [address] [place], [address], Provider Name:Jose E Hubbard , 07/17/2025 10:00:00 AM, [address] [place] [address] [place], [address], Progress Notes * Malu GARCIADOB:1955 ([age] yo F)Acc No.[id number]:02/15/2025 Patient: Malu BOJORQUEZ :1955 A ge:69 Y S ex:Female Address:[address] [place] [facility] [place] [address] * true * Date: Generated for Printi ng/Faxing/eTransmitting on: 05/21/2024 11:57 AM EST
--- OUTSIDE RECORDS SUMMARY | 2025-02-16 06:50 | XMS_ITS ---
Author Organization Jose E Hubbard III, MD Address [address] [place] [address] [place] [address] Care Team Providers Care International Banker Name Role Phone Dr. Jose E Hubbard [...] Provider Diagnosis Jose E Hubbard III, MD [address] [place] [address] [place] [address] 02/16/2025 Jose E Hubbard Plan Of Treatment Medication Medication Name Sig Start Date Stop Date Notes diazePAM 5 MG 1 tablet if needed O rally every 4 hours for 1 days 02/16/2025 Next Appt Details Provider Name:Jose E Hubbard , 06/14/2025 09:45:00 AM, [address] [place] [address] [place], [address], Provider Name:Jose E Hubabrd , 07/17/2025 10:00:00 AM, [address] [place] [address] [place], [address], Progress Notes * Malu GARCIADOB:1955 ([age] yo F)Acc No.[id number]:02/16/2025 Patient: Florecita SANTOSH Malu :1955 A ge:69 Y S ex:Female Address:[address] [place] [address] [place] [address] * Refills Start diazePAM Tablet, 5 MG, Orally, 2 Tablets, 1 tablet if needed, every 4 hours, 1 days, Refills=0 * true * Date: Generated for Michael junior/Kiko/Petra on: 05/21/2024 11:58 AM EST
--- OUTSIDE RECORDS SUMMARY | 2025-03-12 12:00 | XMS_ITS ---
Author Organization Jose E Hubbrad III, MD Address [address] [place] [address] [place] [address] Care Team Providers Care Comb Winder Name Role Phone Dr. Jose E Hubbard III Primary Care Provider REASON FOR VISIT Follow up Social History Sex Assigned At : Social History Observation Description Sex Assigned At Female Encounters Encounter Location Date Provider Diagnosis Jose E Hubbard III, MD [address] [place] [address] [place] [address] 03/12/2025 Jose E Hubbard Plan Of Treatment Next Appt Details Provider Name:Jose E Hubbard , 06/14/2025 09:45:00 AM, [address] [place] [address] [place], [address], Provider Name:Jose E Hubbard , 07/17/2025 10:00:00 AM, [address] [place] [address] [place], [address], Progress Notes * JOSE MaluDOB:1955 ([age] yo F)Acc No.[id number]:03/12/2025 Progress Notes Patient: Malu BOJORQUEZ Provider: Una Hubbard MD :1955 A ge:69 Y S ex:Female Date:03/12/2025 Address:[address] [facility] [place] [phone] Subjective: * Chief Complaints: * 1 . Follow up. * Medical History: Objective: * Vitals: Assessment: Plan: * Treatment: * Images: * The named appointment provid er may or may not be the originator of this progress note, and it is not deemed complete until electronically signed by the appointment provider. Sign off status: Pending * Provider: Una Hubbard MD Date: Generated for Michael junior/Kiko/Petra on: 05/21/2024 11:57 AM EST
--- OUTSIDE RECORDS SUMMARY | 2025-03-14 05:15 | XMS_ITS ---
Author Organization Jose E Hubbard III, MD Address [address] [place] [address] [address] [place] [address] Care Team Providers Care Conductor Pullman Name Role Phone Dr. Jose E Hubbard III Primary Care Provider [phone] Allergies Allergen (clinical drug ingredient) Drug/Non Drug [...] Omeprazole 20 MG TAKE 1 CAPSULE 30 [place] NUTES BEFORE MORNING MEAL ORALLY ONCE A [...] Provider Diagnosis Jose E Hubbard III, MD [address] [place] [address] [place] [address] 03/14/2025 Jose E Hubbard Essential hypertensi on [...] Omeprazole 20 MG TAKE 1 CAPSULE 30 [place] NUTES BEFORE MORNING MEAL ORALLY ONCE A [...] Name:Jose E Hubbard , 06/14/2025 09:45:00 AM, [address] [place] [address] [address], [place], [address], Provider Name:Jose E Hubbard , 07/17/2025 10:00:00 AM, [address] [place] [address] [address], [place], [address], Progress Notes * Malu GARCIADOB:1955 ([age] yo F)Acc No.[id number]:03/14/2025 Progress Notes Patient: Malu BOJORQUEZ Provider: Una Hubbard MD :1955 A ge:69 Y S ex:Female Date:03/14/2025 Address:[address] [place] [address] [phone] Subjective: * Chief Complaints: * H ypertensionGERDLeft [...] History: * Surgical History: N egative colonoscopy, [facility], Dr. York 03/2022 * Hospitalization/Major [...] E x-cigarette smoker S he lives in [place]. She was born in [place], [place]. She has been since 1997 and [...] woman. HEAD: a traumatic, normocephalic. EYES: e alozno, perrla, anicteric, conjugate. EARS: n ormal. NOSE: [...] true * Provider: Una Hubbard MD Date: Generated for Printi ng/Faxing/eTransmitting on: 05/21/2024 11:57 AM EST History and [...]
[2025-03-21 10:27] LABS: Prothrombin Time Whole Bld POC 27.3 sec (11.1-13.5); ~PT, ~INR - Anti Coag Clinic 2.3 (0.9-1.1)
--- NOTE | 2025-03-21 10:36 | MHC.OFFVISCO ---
Intake Intake Visit Reasons: Anticoagulation Allergies acetaminophen (Percocet) Allergy (Severe, Verified 03/21/25 10:20) ITCHY RASH oxycodone (Percocet) Allergy (Severe, Verified 03/21/25 10:20) Itching Penicillins (PENICILLINS) Allergy (Intermediate, Verified 03/21/25 10:20) itchy rash naproxen (NAPROXEN) Allergy (Unknown, Verified 03/21/25 10:20) STOMACH PAIN Medication List - Last Reconciled 03/21/25 by Anali Louis RN acetaminophen ER mg PO atorvastatin 80 mg PO DAILY bisacodyl 10 mg PO BEDTIME chlorhexidine gluconate 0.12% PO docusate sodium 100 mg PO BEDTIME fluoxetine 20 mg PO DAILY gabapentin 100 mg PO DAILY metformin 500 mg PO DAILY metoprolol tartrate 25 mg PO BID omeprazole 20 mg PO DAILY warfarin 4 mg See Protocol PO DAILY Nursing Note NHO CFP,SOB,DIET/MED CHANGES,FALLS OR SX OF BLEEDING. CONTINUE PRESENT DOSE AND FOLLOW-UP IN 2 WEEKS GOOD UNDERSTANDING OF DOSING INSTR. Anti-Coag Initial Assessment Social Hx Patient Tobacco Use Status: Never used Tobacco alcohol intake: never Alcohol intake frequency: does not drink Coding Level of Care Code Est Patient Level 1 Diagnoses Current use of anticoagulant therapy Z79.01 Assessment & Plan Assessment & Plan (1) Current use of anticoagulant therapy: Code(s): Z79.01 - care home (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
--- OUTSIDE RECORDS SUMMARY | 2025-03-21 11:57 | XMS_ITS | Clinical Summary ---
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
--- OUTSIDE RECORDS SUMMARY | 2025-03-21 11:57 | XMS_ITS | Patient Health Record ---
Author Organization Jose E Hubbard III, MD Address [address] [place] [address] [place] [address] Care Team Providers Care Revenue Cycle Manager Name Role Phone Dr. Jose E Hubbard III Primary Care Provider Allergies Allergen (clinical drug ingredient) Drug/Non Drug Allergy documented on EMR Reaction Allergy Type Onset Date Status acetaminophen / oxycodone Percocet Unknown Drug Allergy Active miconazole Monistat 3 burning Drug Allergy Activ e Results Component Value Reference Range Notes INR WHOLE BLOOD POC Reviewed date:03/28/2024 02:06:07 PM Interpretation: Performing Lab:[facility], [address] [place] [phone] Notes/Report: PT, INR - [facility] 2.4 0.9-1.1 METER #: [id number] INTERNATIONAL NORMALIZED RATIO (INR) REFERENCE RANGES Reference [...] OC Reviewed date:03/28/2024 02:06:07 PM Interpretation: Performing Lab:[facility], [address] [place] [phone] Notes/Report: Prothrombin Time Whole Bld POC 29.2 11.1-13.5 sec INR WHOLE BLOOD POC Reviewed date:04/04/2024 09:01:19 PM Interpretation: Performing Lab:[facility], [address] [place] [phone] Notes/Report: PT, INR - [facility] Clinic 2.4 0.9-1.1 METER #: [id number] INTERNATIONAL NORMALIZED RATIO (INR) REFERENCE RANGES Reference [...] OC Reviewed date:04/04/2024 09:01:19 PM Interpretation: Performing Lab:[facility], [address] [place] [phone] Notes/Report: Prothrombin Time Whole Bld POC 28.9 11.1-13.5 sec INR WHOLE BLOOD POC Reviewed date:04/24/2024 05:20:08 AM Interpretation: Performing Lab:[facility], [address] [place] [phone] Notes/Report: PT, INR - [facility]ag Clinic 2.6 0.9-1.1 METER #: [id number] INTERNATIONAL NORMALIZED RATIO (INR) REFERENCE RANGES Reference [...] OC Reviewed date:04/24/2024 05:20:08 AM Interpretation: Performing Lab:[facility], [address] [place] [phone] Notes/Report: Prothrombin Time Whole Bld POC 31.6 11.1-13.5 sec INR WHOLE BLOOD POC Reviewed date:05/12/2024 04:18:48 PM Interpretation: Performing Lab:[facility], [address] [place] [phone] Notes/Report: PT, INR - [facility]ag Clinic 1.9 0.9-1.1 METER #: [id number] INTERNATIONAL NORMALIZED RATIO (INR) REFERENCE RANGES Reference [...] OC Reviewed date:05/12/2024 04:18:48 PM Interpretation: Performing Lab:[facility], [address] [place] [phone] Notes/Report: Prothrombin Time Whole Bld POC 23.3 11.1-13.5 sec INR WHOLE BLOOD POC Reviewed date:05/29/2024 10:54:12 AM Interpretation: Performing Lab:[facility], [address] [place] [phone] Notes/Report: PT, INR - [facility] 2.4 0.9-1.1 METER #: [id number] INTERNATIONAL NORMALIZED RATIO (INR) REFERENCE RANGES Reference [...] OC Reviewed date:05/29/2024 10:54:12 AM Interpretation: Performing Lab:[facility], [address] [place] [phone] Notes/Report: Prothrombin Time Whole Bld POC 29.1 11.1-13.5 sec INR WHOLE BLOOD POC Reviewed date:06/19/2024 06:09:47 PM Interpretation: Performing Lab:[facility], [address] [place] [phone] Notes/Report: PT, INR - [facility] Coag Clinic 2.2 0.9-1.1 METER #: [id number] INTERNATIONAL NORMALIZED RATIO (INR) REFERENCE RANGES Reference [...] OC Reviewed date:06/19/2024 06:09:47 PM Interpretation: Performing Lab:[facility], [address] [place] [phone] Notes/Report: Prothrombin Time Whole Bld POC 26.9 11.1-13.5 sec INR WHOLE BLOOD POC Reviewed date:06/28/2024 09:04:14 AM Interpretation: Performing Lab:[facility], [address] [place] [phone] Notes/Report: PT, INR - [facility] 2.6 0.9-1.1 METER #: [id number] INTERNATIONAL NORMALIZED RATIO (INR) REFERENCE RANGES Reference [...] OC Reviewed date:06/28/2024 09:04:14 AM Interpretation: Performing Lab:[address] [phone] Notes/Report: Prothrombin Time Whole Bld POC 31.7 11.1-13.5 sec INR WHOLE BLOOD POC Reviewed date:08/01/2024 12:17:16 PM Interpretation: Performing Lab:[facility], [address] [place] [phone] Notes/Report: PT, INR - [facility] 2.0 0.9-1.1 METER #: [id number] INTERNATIONAL NORMALIZED RATIO (INR) REFERENCE RANGES Reference [...] OC Reviewed date:08/01/2024 12:17:17 PM Interpretation: Performing Lab:[facility], [address] [place] [phone] Notes/Report: Prothrombin Time Whole Bld POC 24.5 11.1-13.5 sec INR WHOLE BLOOD POC Reviewed date:08/01/2024 12:17:16 PM Interpretation: Performing Lab:[facility], [address] [place] [phone] Notes/Report: PT, INR - [facility] 1.7 0.9-1.1 METER #: [id number] INTERNATIONAL NORMALIZED RATIO (INR) REFERENCE RANGES Reference [...] OC Reviewed date:08/01/2024 12:17:16 PM Interpretation: Performing Lab:[facility], [address] [place] [phone] Notes/Report: Prothrombin Time Whole Bld POC 20.4 11.1-13.5 sec INR WHOLE BLOOD POC Reviewed date:08/07/2024 10:48:30 AM Interpretation: Performing Lab:[facility], [address] [place] [phone] Notes/Report: PT, INR - Anti Coag Clinic 2.5 0.9-1.1 METER #: [id number] INTERNATIONAL NORMALIZED RATIO (INR) REFERENCE RANGES Reference [...] OC Reviewed date:08/07/2024 10:48:30 AM Interpretation: Performing Lab:[facility], [address] [place] [phone] Notes/Report: Prothrombin Time Whole Bld POC 29.5 11.1-13.5 sec INR WHOLE BLOOD POC Reviewed date:08/24/2024 08:14:12 PM Interpretation: Performing Lab:[facility], [address] [place] [phone] Notes/Report: PT, INR - [facility]ag [facility] 2.8 0.9-1.1 METER #: [id number] INTERNATIONAL NORMALIZED RATIO (INR) REFERENCE RANGES Reference [...] OC Reviewed date:08/24/2024 08:14:12 PM Interpretation: Performing Lab:[facility], [address] [place] [phone] Notes/Report: Prothrombin Time Whole Bld POC 33.4 11.1-13.5 sec INR WHOLE BLOOD POC Reviewed date:09/13/2024 03:54:56 PM Interpretation: Performing Lab:[facility], [address] [place] [phone] Notes/Report: PT, INR - [facility] 4.5 0.9-1.1 METER #: [id number] INTERNATIONAL NORMALIZED RATIO (INR) REFERENCE RANGES Reference [...] OC Reviewed date:09/13/2024 03:54:56 PM Interpretation: Performing Lab:[facility], [address] [place] [phone] Notes/Report: Prothrombin Time Whole Bld POC 53.6 11.1-13.5 sec INR WHOLE BLOOD POC Reviewed date:09/13/2024 03:54:56 PM Interpretation: Performing Lab:[facility], [address] [place] [phone] Notes/Report: PT, INR - [facility] 3.0 0.9-1.1 METER #: [id number] INTERNATIONAL NORMALIZED RATIO (INR) REFERENCE RANGES Reference [...] OC Reviewed date:09/13/2024 03:54:56 PM Interpretation: Performing Lab:[facility], [address] [place] [phone] Notes/Report: Prothrombin Time Whole Bld POC 36.2 11.1-13.5 sec INR WHOLE BLOOD POC Reviewed date:09/27/2024 11:28:44 AM Interpretation: Performing Lab:[address] [phone] Notes/Report: PT, INR - [facility] 3.2 0.9-1.1 METER #: [id number] INTERNATIONAL NORMALIZED RATIO (INR) REFERENCE RANGES Reference [...] OC Reviewed date:09/27/2024 11:28:44 AM Interpretation: Performing Lab:[facility], [address] [place] [phone] Notes/Report: Prothrombin Time Whole Bld POC 38.7 11.1-13.5 sec Complete Blood Count Auto Di ff Reviewed date:10/05/2024 05:27:32 AM Interpretation: Performing Lab:[facility], [address] [place] [phone] Notes/Report: White Blood Count 7.6 4.8-10.8 X10*3/uL [...] NRBC Abs Auto 0.000 0.0-0.012 X10*3/uL Comprehensive Mcgrew. Panel Fa Reviewed date:10/05/2024 05:27:32 AM Interpretation: Performing Lab:[facility], [address] [place] [phone] Notes/Report: Sodium 144 135-145 mmol/L Potassium 4.2 [...] Panel Reviewed date:10/05/2024 05:27:32 AM Interpretation: Performing Lab:[facility], [address] [place] [phone] Notes/Report: Triglycerides 61 <150 mg/dL Desirable Triglyceride: [...] Random Reviewed date:10/05/2024 05:27:32 AM Interpretation: Performing Lab:[address] [phone] Notes/Report: Creatinine Urine 132.65 Microalbumin Urine 13.0 Microalbum/Creatinine Ratio Ur 9.8 <30 ug/mg cr Albumin/Creatinine Ratio Reference Ranges: Normal: < 30 ug/mg creatinine Microalbuminuria: 30 - 300 ug/mg creatinine Clinical Albuminuria: > 300 ug/mg creatinine INR WHOLE BLOOD POC Reviewed date:10/05/2024 05:27:32 AM Interpretation: Performing Lab:[address] [phone] Notes/Report: PT, INR - [facility] 3.2 0.9-1.1 METER #: [id number] INTERNATIONAL NORMALIZED RATIO (INR) REFERENCE RANGES Reference [...] OC Reviewed date:10/05/2024 05:27:32 AM Interpretation: Performing Lab:[facility], [address] [place] [phone] Notes/Report: Prothrombin Time Whole Bld POC 38.7 11.1-13.5 sec Hemoglobin A1c Reviewed date:10/05/2024 05:27:32 AM Interpretation: Performing Lab:[facility], [address] [place] [phone] Notes/Report: Hemoglobin A1c % 7.3 <6.0 % [...] average glucose, using the formula of the U2H-Kndheaa Average Glucose study (ADAG), Diabetes Care, Vol.31,#8, 2007 INR WHOLE BLOOD POC Reviewed date:10/20/2024 01:43:10 PM Interpretation: Performing Lab:[facility], [address] [place] [phone] Notes/Report: PT, INR - [facility] 3.5 0.9-1.1 METER #: [id number] INTERNATIONAL NORMALIZED RATIO (INR) REFERENCE RANGES Reference [...] OC Reviewed date:10/20/2024 01:43:10 PM Interpretation: Performing Lab:[facility], [address] [place] [phone] Notes/Report: Prothrombin Time Whole Bld POC 42.2 11.1-13.5 sec INR WHOLE BLOOD POC Reviewed date:11/01/2024 11:06:36 AM Interpretation: Performing Lab:[facility], [address] [place] [phone] Notes/Report: PT, INR - [facility] 2.3 0.9-1.1 METER #: [id number] INTERNATIONAL NORMALIZED RATIO (INR) REFERENCE RANGES Reference [...] OC Reviewed date:11/01/2024 11:06:36 AM Interpretation: Performing Lab:[facility], [address] [place] [phone] Notes/Report: Prothrombin Time Whole Bld POC 27.6 11.1-13.5 sec INR WHOLE BLOOD POC Reviewed date:11/22/2024 01:44:56 PM Interpretation: Performing Lab:[facility], [address] [place] [phone] Notes/Report: PT, INR - [facility] 2.0 0.9-1.1 METER #: [id number] INTERNATIONAL NORMALIZED RATIO (INR) REFERENCE RANGES Reference [...] OC Reviewed date:11/22/2024 01:44:56 PM Interpretation: Performing Lab:[facility], [address] [place] [phone] Notes/Report: Prothrombin Time Whole Bld POC 24.0 11.1-13.5 sec INR WHOLE BLOOD POC Reviewed date:12/20/2024 12:42:36 PM Interpretation: Performing Lab:[facility], [address] [place] [phone] Notes/Report: PT, INR - [facility] 3.3 0.9-1.1 METER #: [id number] INTERNATIONAL NORMALIZED RATIO (INR) REFERENCE RANGES Reference [...] OC Reviewed date:12/20/2024 12:42:36 PM Interpretation: Performing Lab:[facility], [address] [place] [phone] Notes/Report: Prothrombin Time Whole Bld POC 39.7 11.1-13.5 sec INR WHOLE BLOOD POC Reviewed date:01/07/2025 05:06:41 AM Interpretation: Performing Lab:[facility], [address] [place] [phone] Notes/Report: PT, INR - [facility] 3.0 0.9-1.1 METER #: [id number] INTERNATIONAL NORMALIZED RATIO (INR) REFERENCE RANGES Reference [...] OC Reviewed date:01/07/2025 05:06:41 AM Interpretation: Performing Lab:[facility], [address] [place] [phone] Notes/Report: Prothrombin Time Whole Bld POC 35.8 11.1-13.5 sec INR WHOLE BLOOD POC Reviewed date:01/18/2025 11:11:48 AM Interpretation: Performing Lab:[facility], [address] [place] [phone] Notes/Report: PT, INR - [facility] 2.1 0.9-1.1 METER #: [id number] INTERNATIONAL NORMALIZED RATIO (INR) REFERENCE RANGES Reference [...] OC Reviewed date:01/18/2025 11:11:48 AM Interpretation: Performing Lab:[facility], [address] [place] [phone] Notes/Report: Prothrombin Time Whole Bld POC 25.2 11.1-13.5 sec INR WHOLE BLOOD POC Reviewed date:02/04/2025 01:20:27 PM Interpretation: Performing Lab:[facility], [address] [place] [phone] Notes/Report: PT, INR - Anti Coag Clinic 3.5 0.9-1.1 METER #: [id number] INTERNATIONAL NORMALIZED RATIO (INR) REFERENCE RANGES Reference [...] OC Reviewed date:02/04/2025 01:20:27 PM Interpretation: Performing Lab:[facility], [address] [place] [phone] Notes/Report: Prothrombin Time Whole Bld POC 41.7 11.1-13.5 sec INR WHOLE BLOOD POC Reviewed date:02/09/2025 10:33:25 AM Interpretation: Performing Lab:[facility], [address] [place] [phone] Notes/Report: PT, INR - Anti [facility]ag Clinic 3.0 0.9-1.1 METER #: [id number] INTERNATIONAL NORMALIZED RATIO (INR) REFERENCE RANGES Reference [...] OC Reviewed date:02/09/2025 10:33:25 AM Interpretation: Performing Lab:[facility], [address] [place] [phone] Notes/Report: Prothrombin Time Whole Bld POC 36.1 11.1-13.5 sec INR WHOLE BLOOD POC Reviewed date:03/07/2025 04:08:20 PM Interpretation: Performing Lab:[facility], [address] [place] [phone] Notes/Report: PT, INR - Anti Coag Clinic 2.2 0.9-1.1 METER #: [id number] INTERNATIONAL NORMALIZED RATIO (INR) REFERENCE RANGES Reference [...] Prothrombin Time Whole Bld P OC Reviewed date:03/07/2025 04:08:20 PM Interpretation: Performing Lab:[address] [phone] Notes/Report: Prothrombin Time Whole Bld POC 26.4 11.1-13.5 sec INR WHOLE BLOOD POC (Not yet reviewed by provider) Interpretation: Performing Lab:[address] [phone] Notes/Report: PT, INR - Anti Coag Clinic 2.3 0.9-1.1 METER #: [id number] INTERNATIONAL NORMALIZED RATIO (INR) REFERENCE RANGES Reference [...] (Not yet reviewed by provider) Interpretation: Performing Lab:[address] [phone] Notes/Report: Prothrombin Time Whole Bld POC 27.3 11.1-13.5 sec Reason For Referral No Information Medications Medication SIG (Take, Route, Frequency, Duration) Notes Start Date End Date Status Docusate Sodium Acti ve diazePAM 5 MG 1 tablet if needed O rally every 4 hours 02/16/2025 Active Gabapentin 100 MG 1 capsule Orally Onc e a day Active Omeprazole 20 MG TAKE 1 CAPSULE 30 PR NUTES BEFORE MORNING MEAL ORALLY ONCE A DAY 90 DAYS Active Atorvastatin Calcium 80 MG 1 tablet Oral ly Once a day Active Warfarin Sodium 4 MG 1 tablet Orally Onc e a day Active FLUoxetine HCl 20 MG 1 capsule Orally On ce a day Active metFORMIN HCl 500 MG 1 tablet Orally Onc e a day 07/25/2024 Active Metoprolol Tartrate 25 MG 1 tablet with food Orally Twice a day Active Immunizations Vaccine Route Administration [...] Problem Status W/U Status Risk Notes Problem 7461683 Former smoker (Z87.891) Active confirmed He is unable to obtain cigarettes. She does not smoke since his stroke. She says she does not want to. Problem 90153261 Fibromyalgia (M79.7) Active confirmed Fibromyalgia lately has been low-grade she lives with a without a great deal difficulty. No medical therapies necessary. Problem 968379203 Gastro-esophagea l reflux disease without esophagitis (K21.9) Active confirmed She will continue on omeprazole and liquid antacid as needed. Problem 36597676 Essential hypertension (I10) Active confirmed Low The most recent blood pressure was within normal limits and no change in her regimen was necessary. Problem 931778247 Anticoagulation adequate (Z79.01) Active confirmed She has had no bleeding and is compliant with her therapy. Problem CVA - Cerebrovascular accident (283706694) CVA (cerebral vascular accident) (I63.9) Active confirmed She is currently anticoagulated because of the stroke. She has a dense right hemiplegia, but no further neurological symptoms. She is awake and alert and responsive to questions. Her speech is fluent. Problem 514015277 Morbid obesity (E66.01) Active confirmed He discussed her overweight status. We discussed diet and nutrition. We made plans for her to lose weight at a rate of one half of a pound per week. Problem Right hemiplegia (184821579) Right hemiplegia (G81.91) Active confirmed There has been no change in the weakness of the right arm and leg. She remains confined to a wheelchair. The weakness in the right arm is dense. Problem 656336062 Type 2 diabetes mellitus without complication, without long-term current use of insulin (E11.9) Active confirmed Her brother who cares for her reports that she has been compliant with meals and with all of her medications. Comprehensive blood work with a microalbumin fasting glucose fasting lipids and hemoglobin A1c has been ordered. Vital Signs Heart Rate 80 /min 03/14/2025 Temperature 98.6 degrees Fahrenheit 03/14/2025 Blood pressure diastolic 74 mm Hg 03/14/2025 Height 58 in 03/14/2025 Blood pressure systolic 137 mm Hg 03/14/2025 Weight 175 lbs 03/14/2025 BMI 36.57 kg/m2 03/14/2025 Encounters Encounter Location Date Provider Diagnosis Jose E Hubbard III, MD [address] [place] [address] [place] [phone] 07/14/2024 Jose E Hubbard Essential hypertensi on I10 ; CVA (cerebral vascular accident) I63.9 ; Gastro-esophageal reflux disease without esophagitis K21.9 ; Anticoagulation adequate Z79.01 ; Former smoker Z87.891 ; Fibromyalgia M79.7 and Right hemiplegia G81.91 Jose E Hubbard III, MD [address] [place] [address] [place] [address] 10/11/2024 Jose E Hubbard Essential hypertensi on I10 ; CVA (cerebral vascular accident) I63.9 ; Fibromyalgia M79.7 ; Right hemiplegia G81.91 ; Former smoker Z87.891 ; Anticoagulation adequate Z79.01 ; Type 2 diabetes mellitus without complication, without long-term current use of insulin E11.9 and Obesity (BMI 30-39.9) E66.9 Jose E Hubbard III, MD [address] [place] [address] 10/30/2024 Jose E Hubbard Essential hypertensi on I10 ; Acute abdominal pain R10.9 ; Anticoagulation adequate Z79.01 ; CVA (cerebral vascular accident) I63.9 ; Gastro-esophageal reflux disease without esophagitis K21.9 ; Fibromyalgia M79.7 ; Type 2 diabetes mellitus without complication, without long-term current use of insulin E11.9 ; Right hemiplegia G81.91 and Former smoker Z87.891 Jose E Hubbard III, MD [address] [place] [address] [place] [address] 12/06/2024 Jose E Hubbard Essential hypertensi on [...] Fibromyalgia M79.7 Jose E Hubbard III, MD [address] [place] [address] 03/14/2025 Jose E Hubbard Essential hypertensi on I10 ; CVA (cerebral vascular accident) I63.9 ; Type 2 diabetes mellitus without complication, without long-term current use of insulin E11.9 ; Gastro-esophageal reflux disease without esophagitis K21.9 ; Fibromyalgia M79.7 ; Anticoagulation adequate Z79.01 ; Former smoker Z87.891 and Right hemiplegia G81.91 Jose E Hubbard III, MD [address] [place] [address] [place] [address] 07/25/2024 Jose E Hubbard III, MD [address] [place] [address] [place] [phone] 07/25/2024 Jose E Hubbard III, MD [address] [place] [address] [place] [address] 09/20/2024 Jose E Hubbard Essential hypertensi on I10 Jose E Hubbard III, MD [address] [place] [address] [place] [address] 09/26/2024 Jose E Hubbard III, MD [address] [place] [address] 11/14/2024 Jose E Hubbard Essential hypertensi on I10 Jose E Hubbard III, MD [address] [place] [address] 02/05/2025 Jose E Hubbard Essential hypertensi on I10 Jose E Hubbard III, MD [address] [place] [address] 02/15/2025 Jose E Hubbard III, MD [address] [place] [address] 02/16/2025 Jose E Hubbard Assessments Encounter Date [...] to questions. Her speech is fluent. 03/14/2025 Essential hypertension (ICD-10 - I10) The [...] No change in her medications was necessary. 03/14/2025 Type 2 diabetes mellitus without complication, without long-term current use of insulin (ICD-10 - E11.9) Her brother who cares for her reports that she has been compliant with meals and with all of her medications. Comprehensive blood work with a microalbumin fasting glucose fasting lipids and hemoglobin A1c has been ordered. 07/14/2024 Anticoagulation adequate (ICD-10 - Z79.01) She [...] Z12.31) [place] annual mammogram has been scheduled. 03/14/2025 Gastro-esophageal reflux disease without esophagitis (ICD-10 - K21.9) She will continue on omeprazole and liquid antacid as needed. 07/14/2024 Former smoker (ICD-1 0 - Z87.891) [...] says she does not want to. 03/14/2025 Fibromyalgia (ICD-10 - M79.7) Fibromyalgia lately has been low-grade she lives with a without a great deal difficulty. No medical therapies necessary. 07/14/2024 Fibromyalgia (ICD-10 - M79.7) Fibromyalgia lately [...] omeprazole and liquid antacid as needed. 03/14/2025 Anticoagulation adequate (ICD-10 - Z79.01) She has had no bleeding and is compliant with her therapy. 07/14/2024 Right hemiplegia (ICD-10 - G81.91) There [...] weakness in the right arm is dense. 03/14/2025 Right hemiplegia (ICD-10 - G81.91) There [...] C) 11/16/2023 PROFILE, FASTING (COMPREHENSIVE METABOLI C) 03/14/2025 PROFILE, RANDOM (COMPREHENSIVE METABOLIC ) 10/23/2021 PROFILE, [...] CBC w DIFF 03/05/2020 CBC w DIFF 03/14/2025 CBC w DIFF 09/02/2020 CBC w DIFF 12/06/2024 CBC w DIFF 04/20/2019 CBC w DIFF 04/15/2022 CBC w DIFF 01/09/2020 CBC w DIFF 06/03/2020 CBC w DIFF 01/05/2023 CBC w DIFF 10/23/2021 CBC w DIFF 02/10/2022 CBC w DIFF [...] Panel 04/07/2023 Lipid Panel 11/16/2023 Lipid Panel 03/14/2025 Lipid Panel 12/06/2024 Lipid Panel 07/14/2024 Lipid Panel 07/13/2023 Lipid Panel 02/16/2024 Microalbumin, Random 07/14/2024 INR WHOLE BLOOD POC 03/21/2025 Prothrombin Time Whole Bld POC T Spot TB 08/04/2022 MM tomosynthesis screening BI 12/06/2024 US abdomen complete 07/08/2022 Hemoglobin A1c 03/14/2025 Hemoglobin A1c 12/06/2024 Hemoglobin A1c 07/14/2024 Next Appt Details Provider Name:Jose E Hubbard , 06/14/2025 09:45:00 AM, [address] [place] [address] [place], [address], Provider Name:Jose E Hubbard , 07/17/2025 10:00:00 AM, [address] [place] [address] , [address], [place], [address], Insurance Providers Payer Name Payer Address Payer Phone Subscriber Number Group Number Insured Name Patient Relationship to Insured Coverage Start Date Coverage End Date MEDICARE NGS [address] [place] [phone] [id number] Malu Garcia Self - patient is the [...]
--- OUTSIDE RECORDS SUMMARY | 2025-03-21 11:57 | XMS_ITS | Clinical Summary ---
Author Organization [employer] Address [address] [place] [address] Care Team Providers Care Geriatric Nursing Assistant Name Role Phone Unavailable Primary Care [...] patient's age to complete this topic Insurance [facility] MEDICAID STAND ADULT
--- OUTSIDE RECORDS SUMMARY | 2025-03-21 11:57 | XMS_ITS | Patient Health Record ---
Author Organization [facility] Address [address] [place] [address] Care Team Providers Care Bar Useful Or Busser Name Role Phone Jose E Hubbard MD Primary Care Provider UnavailKhadar Payne Unavailable [phone] Allergies Allergen (clinical drug ingredient) Drug/Non Drug [...] Omeprazole 20 MG take 1 capsule by [facility] twice a day 30 MINUTES PRIOR TO BREAKFAST AND SUPPER Oral; Duration: 30 Active Vitamin D3 400 units once daily Active Social History Tobacco use other than smoking: Question Answer Notes Are you an other tobacco user? No Problems Problem Type SNOMED Code ICD Code Onset Dates Problem Status W/U Status Risk Notes Problem Arthralgia (53984215) Arthralgia (719.40) Active confirmed Problem Disorder of joint of ankle and/or foot (676139473) Arthritis - Degenerative (719.97) Active confirmed Problem Hammer toe (555019446) Hammer toe (735.4) Active confirmed Problem Onychomycosis (730672448) Onychomycosis (110.1) Active confirmed Problem Pain in limb (02157651) Pain in Limb (729.5) Active confirmed Problem Tenosynovitis (66251506) Tenosynovitis (727.06) Active confirmed Problem Foot ulcer (41966744) Ulcer of Other Part of Foot (707.15) Active confirmed Plan Of Treatment Pending Test Test Name Order Date X ray : Foot, left 3V 12/28/2011 54306- Debride <25 sq cm 08/17/2013 Insurance Providers Payer Name Payer Address Payer Phone Subscriber Number Group Number Insured Name Patient Relationship to Insured Coverage Start Date Coverage End Date [facility] [address] [place] [address] [id number] GAYLA AIKEN Self - patient is the insured Medical (General) History Medical History History ICD Code fibromyalgia Reflux Surgical History Surgery Date(Month/Year) foot surgery 2008 hand/wrist 2007
== END 2025-03-21 10:38 | disposition home or self-care (01) ==
LOC: HO.ACS 10:19
PROVIDERS: PCP Internal Medicine Medical Oncology; Visit Provider Internal Medicine Medical Oncology
DX: Z79.01 Long term (current) use of anticoagulants (principal)

== ENCOUNTER → 2025-03-21 10:19 | Outpatient (BNVA) | payer MEDICARE, SELFPAY | PROVIDERS: PCP Internal Medicine Medical Oncology; Visit Provider Internal Medicine Medical Oncology | DX: Z79.01 Long term (current) use of anticoagulants (principal) | CPT/HCPCS: 85610; 99211 ==

== ENCOUNTER 2025-04-04 10:05 | Outpatient (AMB) | payer MEDICARE, SELFPAY ==
--- OUTSIDE RECORDS SUMMARY | 2024-09-26 04:54 | XMS_ITS ---
Author Organization Jose E Hubbard III, MD Address [address] [place] [address] [place] [address] Care Team Providers Care Retail Representative Name Role Phone Dr. Jose E Hubbard [...] Provider Diagnosis Jose E Hubbard III, MD [address] [place] [address] [place] [address] 09/26/2024 Jose E Hubbard Plan Of Treatment Medication Medication Name Sig Start Date Stop Date Notes Atorvastatin Calcium 80 MG 1 tablet Oral ly Once a day for 90 days Next Appt Details Provider Name:Jose E Hubbard , 06/14/2025 09:45:00 AM, [address] [place] [address] [place], [address], Provider Name:Jose E Hubbard , 07/17/2025 10:00:00 AM, [address] [place] [address] [place], [address], Progress Notes * Malu GARCIADOB:1955 ([age] yo F)Acc No.[id number]:09/26/2024 Patient: Malu BOJORQUEZ :1955 A ge:68 Y S ex:Female Address:[address] [place] [address] [place] [address] * Refills Refill Atorvastatin Calcium Tablet, 80 MG, Orally, 90 Tablet, 1 tablet, Once a day, 90 days, Refills=3 * true * Date: Generated for Michael junior/Kiko/Petra on: 06/04/2024 07:02 PM EST
--- OUTSIDE RECORDS SUMMARY | 2024-10-11 05:00 | XMS_ITS ---
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 Jose E Hubbard III Primary Care Provider [phone] Allergies Allergen (clinical drug ingredient) Drug/Non Drug [...] Diagnosis Jose E Hubbard III, MD [address] [place] [address] [address] [facility] [address] 10/11/2024 Jose E Hubbard Essential hypertensi on [...] Name:Jose E Hubbard , 06/14/2025 09:45:00 AM, [address] [place] [address] [address], [place], [phone], Provider Name:Jose E Hubbard , 07/17/2025 10:00:00 AM, [address] [place] [address] [address], [place], [address], Progress Notes * Malu GARCIADOB:1955 ([age] yo F)Acc No.[id number]:10/11/2024 Progress Notes Patient: Malu BOJORQUEZ Provider: Una Hubbard MD :1955 A ge:68 Y S ex:Female Date:10/11/2024 Address:[address] [place] [address] [place] W[place]la[place] [id number] Subjective: * Chief Complaints: * H ypertensionHistory [...] History: * Surgical History: N egative colonoscopy, [facility], Dr. York 03/2022 * Hospitalization/Major Diagno [...] E x-cigarette smoker S he lives in [place]. She was born in [place], [place]. She has been since 1997 and [...] MD Date: 0 10/11/2024 Generated for Jerii ng/Faanjumg/eTransmitting on: 06/04/2024 07:03 PM EST History and Physical Notes * [...]
--- OUTSIDE RECORDS SUMMARY | 2024-10-30 08:30 | XMS_ITS ---
Author Organization Jose E Hubbard III, MD Address [address] [place] [address] [address] [place] [address] Care Team Providers Care Record Label Intern Name Role Phone Dr. Jose E Hubbard [...] Diagnosis Jose E Hubbard III, MD [address] [place] [address] [address], IFEANYI [address] 10/30/2024 Jose E Hubbard Essential hypertensi on [...] Name:Jose E Hubbard , 06/14/2025 09:45:00 AM, [address] [place] [address] [address], [place], [address], Provider Name:Jose E Hubbard , 07/17/2025 10:00:00 AM, [address] [place] [address] [address], [place], [address], Progress Notes * Malu GARCIADOB:1955 ([age] yo F)Acc No.[id number]:10/30/2024 Patient: Malu BOJORQUEZ Provider: Una Hubbard MD :1955 A ge:69 Y S ex:Female Date:10/30/2024 Address:[address] [place] [address] YEN Billy [id number] Subjective: * Chief Complaints: * A bdominal [...] of provider rendering services: { ...} [address] [facility] [address] L ocation of patient: mac barajas listed [...] History: * Surgical History: N egative colonoscopy, [facility], Dr. York 03/2022 * Hospitalization/Major Diagno [...] E x-cigarette smoker S he lives in [place]. She was born in [place]. She has been since 1997 and [...] 10/30/2024 Generated for Michael junior/Kiko/Eugenieitting on: 1 06/04/2024 07:01 PM EST History and Physical Notes * HPI (History of Present Illness) Category Sub-Category Detail Notes Telehealth Location of [facility] rendering services:: {...} [address] [place], [place] [address] Location of patient:: address listed in demographics [...]
--- OUTSIDE RECORDS SUMMARY | 2024-11-14 04:22 | XMS_ITS ---
Author Organization Jose E Hubbard III, MD Address [address] [place] [address] [place] [address] Care Team Providers Care Seamless Hosiery Knitter Name Role Phone Dr. Jose E Hubbard III Primary Care Provider [phone] REASON FOR VISIT Rx Request Medications Medication SIG (Take, Route, Fr equency, Duration) Notes Start Date End Date Status Warfarin Sodium 4 MG 1 tablet Orally Onc e a day for 90 days Active Social History Sex Assigned At : Social History Observation Description Sex Assigned At Female Encounters Encounter Location Date Provider Diagnosis Jose E Hubbard III, MD [address] [place] [address] [place] [address] 11/14/2024 Jose E Hubbard Essential hypertensi on [...] Name:Jose E Hubbard , 06/14/2025 09:45:00 AM, [address] [place] [address] [place], [address], Provider Name:Jose E Hubbard , 07/17/2025 10:00:00 AM, [address] [place] [address] [place], [address], Progress Notes * Mini GARCIAB:1955 ([age] yo F)Acc No.[id number]:11/14/2024 Patient: Malu BOJORQUEZ :1955 A ge:69 Y S ex:Female Address:[address] [place] [address] * Refills Refill Warfarin Sodium Tablet, 4 MG, Orally, 90 Tablet, 1 tablet, Once a day, 90 days, Refills=3 * true * Date: Generated for Michael junior/Kiko/Eugenieitting on: 06/04/2024 07:01 PM EST
--- OUTSIDE RECORDS SUMMARY | 2024-12-06 05:00 | XMS_ITS ---
Author Organization Jose E Hubbard III, MD Address [address] [place] [address] [address] [place] [address] Care Team Providers Care Candy Puller Name Role Phone Dr. Jose E Hubbard III Primary Care Provider Allergies Allergen (clinical drug ingredient) Drug/Non Drug Allergy documented on EMR Reaction Allergy Type Onset Date Status acetaminophen / oxycodone Percocet Unknown Drug Allergy Active miconazole Monistat 3 burning Drug Allergy Activ e REASON FOR VISIT History of stroke, Right hemiplegia, Hypertension, Anticoagulation, Morbid obesity, Diabetes Medications Medication SIG (Take, Route, Frequency, Duration) Notes Start Date End Date Status Omeprazole 20 MG 1 capsule 30 minutes before morning meal Orally Once a day Active diazePAM 5 MG 1 tablet if needed O rally Once a day for 2 days 12/06/2024 Active diazePAM 5 MG 1 tablet Orally ever y 4 hours for anxiety 01/12/2023 Active Gabapentin 100 MG 1 capsule Orally Onc e a day Active Docusate Sodium Acti ve Warfarin Sodium 4 MG 1 tablet Orally Onc e a day Active Atorvastatin Calcium 80 MG 1 tablet Oral ly Once a day Active FLUoxetine HCl 20 MG 1 capsule Orally On ce a day Active Metoprolol Tartrate 25 MG 1 tablet with food Orally Twice a day Active metFORMIN HCl 500 MG 1 tablet Orally Onc e a day 07/25/2024 Active Social History Tobacco Use: Social History [...] smoker Vital Signs Temperature 98.8 degrees Fahrenheit 12/07/19 25 Blood pressure systolic 129 mm Hg 12/07/19 25 Blood pressure diastolic 66 mm Hg 025 Heart Rate 73 /min 12/06/2024 Height 58 in 12/06/2024 Weight 175 lbs 12/06/2024 BMI 36.57 kg/m2 12/06/2024 Encounters Encounter Location Date Provider Diagnosis Jose E Hubbard III, MD [address] [place] [address] [place] [address] 12/06/2024 Jose E Hubbard Essential hypertensi on I10 ; CVA (cerebral vascular accident) I63.9 ; Type 2 diabetes mellitus without complication, without long-term current use of insulin E11.9 ; Encounter for screening mammogram for malignant neoplasm of breast Z12.31 ; Former smoker Z87.891 ; Gastro-esophageal reflux disease without esophagitis K21.9 ; Anticoagulation adequate Z79.01 ; Right hemiplegia G81.91 and Fibromyalgia M79.7 Assessments Encounter Date Diagnosis (ICD Code) Assessment Notes Treat ment Notes Treatment Clinical Notes 12/06/2024 Essential hypertension (ICD-10 - I10) The most recent blood pressure was within normal limits and no change in her regimen was necessary. 12/06/2024 CVA (cerebral vascular accident) (ICD-10 - I63.9) She is currently anticoagulated because of the stroke. She has a dense right hemiplegia, but no further neurological symptoms. She is awake and alert and responsive to questions. Her speech is fluent. 12/06/2024 Type 2 diabetes mellitus without complication, without long-term current use of insulin (ICD-10 - E11.9) Her hemoglobin A1c is 7.3. She has lost 3 pounds. We discussed continued weight loss through diet. No change in her medications was necessary. 12/06/2024 Encounter for screening mammogram for malignant neoplasm of breast (ICD-10 - Z12.31) [place] annual mammogram has been scheduled. 12/06/2024 Former smoker (ICD-1 0 - Z87.891) He is unable to obtain cigarettes. She does not smoke since his stroke. She says she does not want to. 12/06/2024 Gastro-esophageal reflux disease without esophagitis (ICD-10 - K21.9) She will continue on omeprazole and liquid antacid as needed. 12/06/2024 Anticoagulation adequate (ICD-10 - Z79.01) She has had no bleeding and is compliant with her therapy. 12/06/2024 Right hemiplegia (ICD-10 - G81.91) There has been no change in the weakness of the right arm and leg. She remains confined to a wheelchair. The weakness in the right arm is dense. 12/06/2024 Fibromyalgia (ICD-10 - M79.7) Fibromyalgia lately has been low-grade she lives with a without a great deal difficulty. No medical therapies necessary. Plan Of Treatment Medication Medication Name Sig Start Date Stop Date Notes Omeprazole 20 MG 1 capsule 30 minutes before morning meal Orally Once a day diazePAM 5 MG 1 tablet if needed O rally Once a day for 2 days 12/06/2024 diazePAM 5 MG 1 tablet Orally ever y 4 hours for anxiety 01/12/2023 Gabapentin 100 MG 1 capsule Orally Once a day Docusate Sodium Warfarin Sodium 4 MG 1 tablet Orally Once a day Atorvastatin Calcium 80 MG 1 tablet Orally Once a day FLUoxetine HCl 20 MG 1 capsule Orally Once a day Metoprolol Tartrate 25 MG 1 tablet with food Orally Twice a day metFORMIN HCl 500 MG 1 tablet Orally Once a day 07/25/2024 Pending Test Test Name Order Date PROFILE, FASTING (COMPREHENSIVE METABOLI C) 12/06/2024 CBC w DIFF 12/06/2024 Lipid Panel 12/06/2024 MM tomosynthesis screening BI 12/06/2024 Hemoglobin A1c 12/06/2024 Next Appt Details Follow Up: 3 Months, Reason: OV Provider Name:Jose E Hubbard , 06/14/2025 09:45:00 AM, [address] [place] [address] [address], [place], [id number], Provider Name:Jose E Hubbard , 07/17/2025 10:00:00 AM, [address] [place] [address] [address], [place], [address], Progress Notes * Elmer GARCIA:1955 ([age] yo F)Acc No.[id number]:12/06/2024 Progress Notes Patient: Malu BOJORQUEZ Provider: Una Hubbard MD :1955 A ge:69 Y S ex:Female Date:12/06/2024 Address:[address] [place], [place] [id number] Subjective: * Chief Complaints: * H istory of strokeRight hemiplegiaHypertensionAnticoagulationMorbid obesityDiabetes * HPI: C OVID-19 Screening: S he returns for a scheduled periodic visit to manage her medical issues. She says that she feels well. She has been eating and drinking normally. Her vital signs are stable. She has had no bleeding. She has been compliant with all of her medications.Her diabetes has been controlled.The most recent hemoglobin A1c is 7.3.Her heartburn is well controlled. Her fibromyalgia has been causing some abdominal pain. She is not smoking. Questions H ave you had any new [...] enies. D iarrhea d enies. H eartburn c ontrolled with medications. N ausea d enies. R ectal bleeding d enies. V omiting d enies. H ematology: bruising d enies. p etechiae d enies. S wollen glands n one have been noted. G enitourinary: Frequent urination a t night. M usculoskeletal: Muscle aches d enies. P ainful joints d enies. S ciatica d enies. W eakness R ight side. S kin: Itching d enies. R henry d enies. S kin lesion(s)?denies. N eurologic: Difficulty speaking d enies. D izziness d enies.?Headache d enies. L ow back pain d enies. P sychiatric: Depressed mood d enies. * Medical History: * Surgical History: N egative colonoscopy, [facility], Dr. York 03/2022 * Hospitalization/Major Diagno [...] x-cigarette smoker S he lives in [place]. She was born in [place], [place]. She has been since 1997 and has 1 child. * Medications: T akingAtorvastatin Calcium 80 MG Tablet 1 tablet Orally Once a day FLUoxetine HCl 20 MG Capsule 1 capsule Orally Once a day Metoprolol Tartrate 25 MG Tablet 1 tablet with food Orally Twice a day metFORMIN HCl 500 MG Tablet 1 tablet Orally Once a day Docusate Sodium diazePAM 5 MG Tablet 1 tablet Orally every 4 hours for anxiety Gabapentin 100 MG Capsule 1 capsule Orally Once a day Omeprazole 20 MG Capsule Delayed Release 1 capsule 30 minutes before morning meal Orally Once a day Warfarin Sodium 4 MG Tablet 1 tablet Orally Once a [...] 1 tablet Orally Once a day Taking Docusate Sodium Taking diazePAM 5 MG Tablet 1 tablet Orally every 4 hours for anxiety Taking Gabapentin 100 MG Capsule 1 capsule Orally Once a day Taking Omeprazole 20 MG Capsule Delayed Release 1 capsule 30 minutes before morning meal Orally Once a day Taking Warfarin Sodium 4 MG Tablet 1 tablet Orally Once a day Medication List reviewed and reconciled with the patient * Allergies: P ercocetMonistat 3: burningno[Allergies Verified] Objective: * Vitals: H t: 58, Wt:175, BMI:36.57, BP:129/66, HR:73, Temp:98.8, Wt-k.38. * P ast Orders: Lab:Prothrombin Time Whole B ld POC * Collection Date 11/22/2024 11/01/2024 10/18/2024 10/04/2024 09/27/2024 09/13/2024 09/06/2024 Collection Time 10:30 AM 10:24 AM 10:38 AM 09:25 AM 10:23 AM 10:09 AM 10:13 AM Order Date 11/22/2024 11/01/2024 10/18/2024 10/04/2024 09/13/2024 09/06/2024 Prothrombin Time Whole Bld POC 24.0 H (Ref Range: 11.1-13.5 sec) 27.6 H (Ref Range: 11.1-13.5 sec) 42.2 H (Ref Range: 11.1-13.5 sec) 38.7 H (Ref Range: 11.1-13.5 sec) 38.7 H (Ref Range: 11.1-13.5 sec) 36.2 H (Ref Range: 11.1-13.5 sec) 53.6 H (Ref Range: 11.1-13.5 sec) * Lab:INR WHOLE BLOOD POC * Collection Date 11/22/2024 11/01/2024 10/18/2024 10/04/2024 09/27/2024 09/13/2024 09/06/2024 Collection Time 10:30 AM 10:24 AM 10:38 AM 09:25 AM 10:23 AM 10:09 AM 10:13 AM Order Date 11/22/2024 11/01/2024 10/18/2024 10/04/2024 09/13/2024 09/06/2024 INR WHOLE BLOOD POC 2.0 H (Ref Range: 0.9-1.1) 2.3 H (Ref Range: 0.9-1.1) 3.5 H (Ref Range: 0.9-1.1) 3.2 H (Ref Range: 0.9-1.1) 3.2 H (Ref Range: 0.9-1.1) 3.0 H (Ref Range: 0.9-1.1) 4.5 H (Ref Range: 0.9-1.1) * Lab:Microalbumin, Random * Collection Date 10/04/2024 04/01/2023 Collection Time 10:09 AM 10:00 AM Order Date 10/04/2024 04/01/2023 Creatinine Urine 132.65 (Ref Range: mg/dL) 103.27 (Ref Range: mg/dL) Microalbumin Urine 13.0 (Ref Range: mg/L) 11.0 (Ref Range: mg/L) Microalbum Creatinine Ratio Ur 9.8 (Ref Range: <30 ug/mg cr) 10.6 (Ref Range: <30 ug/mg cr) * Lab:Complete Blood Count Aut o Diff [...] X10*3/uL) 0.000 (Ref Range: 0.0-0.012 X10*3/uL) * Lab:Hemoglobin A1c * Collection Date 10/04/2024 02/08/2024 04/01/2023 Collection Time 10:15 AM 10:06 AM 09:59 AM Order Date 10/04/2024 02/08/2024 04/01/2023 Hemoglobin A1c % 7.3 H (Ref Range: <6.0 %) 7.5 H (Ref Range: <6.0 %) 7.4 H (Ref Range: <6.0 %) Estimated Average Glucose 163 (Ref Range: mg/dL) 169 (Ref Range: mg/dL) 166 (Ref Range: mg/dL) * Lab:Comprehensive [place]. Pane l Fast * Collection Date 10/04/2024 02/08/2024 [...] mg/dL) 8.6 (Ref Range: 8.4-10.2 mg/dL) * Lab:Lipid Panel * Collection Date 10/04/2024 [...] 35 L (Ref Range: >40 mg/dL) * Examination: G eneral Examination: GENERAL APPEARANCE: p leasant, well nourished, well developed, in no acute distress, calm and relaxed, obese, woman. HEAD: a traumatic, normocephalic. EYES: e alonzo, [...] LUNGS: c lear to auscultation . BREASTS: n o masses palpable bilaterally, no discharge, no drainage, no dimpling, nontender, symmetrical. ABDOMEN: b owel sounds normal, no ascites, no organomegaly, no mass. RECTAL EXAM: n ot examined. MUSCULOSKELETAL: R ight hemiplegia with contractions at the wrist and fingers, no clubbing, cyanosis or edema. PERIPHERAL PULSES: n ormal. NEUROLOGIC: a lert and oriented, cranial nerves 2-12 grossly intact, deep tendon reflexes 2+ symmetrical, motor strength normal upper and lower extremities, sensory exam intact, Able to stand without difficulty, dense right hemiplegia, Unable to speak, aphasia. PSYCH: a lert, oriented. Assessment: * Assessment: [...] otes :The most recent blood pressure was within normal limits and no change in her regimen was necessary. 3 . T ype 2 diabetes mellitus without complication, without long-term current use of insulin - E11.9 N otes :Her hemoglobin A1c is 7.3. She has lost 3 pounds. We discussed continued weight loss through diet. No change in her medications was necessary. 4 . E ncounter for screening mammogram for malignant neoplasm of breast - Z12.31 N otes :[place] annual mammogram has been scheduled. 5 . F ormer smoker - Z87.891 N otes :He is unable to obtain cigarettes. She does not smoke since his stroke. She says she does not want to. 6 . G timothy-esophageal reflux disease without esophagitis - K21.9 ?Notes :She will continue on omeprazole and liquid antacid as needed. 7 . A nticoagulation adequate - Z79.01 N otes :She has had no bleeding and is compliant with her therapy. 8 . R ight hemiplegia - G81.91 N otes :There has been no change in the weakness of the right arm and leg. She remains confined to a wheelchair. The weakness in the right arm is dense. 9 . F ibromyalgia - M79.7 N otes :Fibromyalgia lately has been low-grade she lives with a without a great deal difficulty. No medical therapies necessary. Plan: * Treatment: 2. T ype 2 diabetes mellitus without complication, without long-term current use of insulin L AB: PROFILE, FASTING (COMPREHENSIVE METABOLIC) L AB: CBC w DIFF L AB: Lipid Panel L AB: Hemoglobin A1c 3. E ncounter for screening mammogram for malignant neoplasm of breast I maging: MM tomosynthesis screening BI 4. O thers Continue Atorvastatin Calcium Tablet, 80 [...] tobacco use and urged to quit. 0 12/06/2024 DM Care Plan: P atient Lifestyle Goals P atient wants to be able to manage diabetes without too much effort. T reatment Goals H bA1C < 7.0, Blood Sugars less than < 115. B arriers n o barriers. S elf-Managment Goals W ork on weight loss, with a goal of losing 1 lb per week. * Follow Up: 3 Months (Reason: OV) * Images: * Sign off status: Completed true * Provider: Una Hubbard MD Date: 0 12/06/2024 Generated for Michael junior/Kiko/Eugenieitting on: 06/04/2024 07:02 PM EST History and Physical Notes * HPI (History of Present Illness) Category Sub-Category Detail Notes COVID-19 Screening Questions Have you had any new onset fever, chills, cough, congestion, sore throat, shortness of breath, muscle aches?: No Examination Category Sub-Category Detail Notes General Examination GENERAL APPEARANCE: pleasant , well nourished, well developed, in no acute distress, calm and relaxed, obese, woman HEAD: atraumatic, normocep halic EYES: eomi, [...] upper and lower extremities, sensory exam intact, Able to stand without difficulty, dense right hemiplegia, Unable to speak, aphasia SKIN: no suspicious lesion s, anicteric PERIPHERAL PULSES: normal BREASTS: no masses palpable b ilaterally, no discharge, no drainage, no dimpling, nontender, symmetrical MUSCULOSKELETAL: Right hemiplegia wit h contractions at the wrist and fingers, no clubbing, cyanosis or edema LYMPH NODES: no enlarged lymph no tj,spleen normal RECTAL EXAM: not examined PSYCH: alert, oriented ORAL CAVITY: normal, unremarkable
--- OUTSIDE RECORDS SUMMARY | 2025-02-05 08:20 | XMS_ITS ---
Author Organization Jose E Hubbard III, MD Address [address] [place] [address] [place] [address] Care Team Providers Care Store Mgr Name Role Phone Dr. Jose E Hubbard [...] Diagnosis Jose E Hubbard III, MD [address] [place] [address] [place] [address] 02/05/2025 Jose E Hubbard Essential hypertensi on [...] E Hubbard , 06/14/2025 09:45:00 AM, [address] [place] [address] [place], [address], Provider Name:Jose E Hubbard , 07/17/2025 10:00:00 AM, [address] [place] [address] [place], [address], Progress Notes * Elmer GARCIA:1955 ([age] yo F)Acc No.[id number]:02/05/2025 Patient: Malu BOJORQUEZ :1955 A ge:69 Y S ex:Female Address:[address] [place] [phone] * Refills Refill Gabapentin Capsule, 100 MG, Orally, 90, 1 capsule, Once a day, 90 days, Refills=3 * true * Date: Generated for Michael junior/Kiko/Vonsmitting on: 06/04/2024 07:02 PM EST
--- OUTSIDE RECORDS SUMMARY | 2025-02-15 06:47 | XMS_ITS ---
Author Organization Jose E Hubbard III, MD Address [address] [place] [address] [place] [address] Care Team Providers Care Corduroy Cutting Supervisor Name Role Phone Dr. Jose E Hubbard III Primary Care Provider REASON FOR VISIT Rx Request Social History Sex Assigned At : Social History Observation Description Sex Assigned At Female Encounters Encounter Location Date Provider Diagnosis Jose E Hubbard III, MD [address] [place] [address] [place] [address] 02/15/2025 Jose E Hubbard Plan Of Treatment Next Appt Details Provider Name:Jose E Hubbard , 06/14/2025 09:45:00 AM, [address] [place] [address] [place], [address], Provider Name:Jose E Hubbard , 07/17/2025 10:00:00 AM, [address] [place] [address] [place], [address], Progress Notes * Malu GARCIADOB:1955 ([age] yo F)Acc No.[id number]:02/15/2025 Patient: Malu BOJORQUEZ :1955 A ge:69 Y S ex:Female Address:[address] [place] [address] * true * Date: Generated for Printi ng/Faxing/eTransmitting on: 06/04/2024 07:02 PM EST
--- OUTSIDE RECORDS SUMMARY | 2025-02-16 06:50 | XMS_ITS ---
Author Organization Jose E Hubbard III, MD Address [address] [place] [address] [place] [address] Care Team Providers Care Senior Operations Manager Name Role Phone Dr. Jose E Hubbard [...] Provider Diagnosis Jose E Hubbard III, MD [address] [place] [address] [place] [address] 02/16/2025 Jose E Hubbard Plan Of Treatment Medication Medication Name Sig Start Date Stop Date Notes diazePAM 5 MG 1 tablet if needed O rally every 4 hours for 1 days 02/16/2025 Next Appt Details Provider Name:Jose E Hubbard , 06/14/2025 09:45:00 AM, [address] [place] [address] [place], [address], Provider Name:Jose E Hubbard , 07/17/2025 10:00:00 AM, [address] [place] [address] [place], [address], Progress Notes * Malu GARCIADOB:1955 ([age] yo F)Acc No.[id number]:02/16/2025 Patient: Florecita SANTOSH Malu :1955 A ge:69 Y S ex:Female Address:[address] [place] [address] [place] [address] * Refills Start diazePAM Tablet, 5 MG, Orally, 2 Tablets, 1 tablet if needed, every 4 hours, 1 days, Refills=0 * true * Date: Generated for Michael junior/Kiko/Petra on: 06/04/2024 07:02 PM EST
--- OUTSIDE RECORDS SUMMARY | 2025-03-12 12:00 | XMS_ITS ---
Author Organization Jose E Hubbard III, MD Address [address] [place] [address] [place] [address] Care Team Providers Care Final Installer Inspector Name Role Phone Dr. Jose E Hubbard III Primary Care Provider REASON FOR VISIT Follow up Social History Sex Assigned At : Social History Observation Description Sex Assigned At Female Encounters Encounter Location Date Provider Diagnosis Jose E Hubbard III, MD [address] [place] [address] [place] [address] 03/12/2025 Jose E Hubbard Plan Of Treatment Next Appt Details Provider Name:Jose E Hubbard , 06/14/2025 09:45:00 AM, [address] [place] [address] [place], [address], Provider Name:Jose E Hubbard , 07/17/2025 10:00:00 AM, [address] [place] [address] [place], [address], Progress Notes * ATTILA MaluDOB:1955 ([age] yo F)Acc No.[id number]:03/12/2025 Progress Notes Patient: Malu BOJORQUEZ Provider: Una Hubbard MD :1955 A ge:69 Y S ex:Female Date:03/12/2025 [facility] [facility] [phone] Subjective: * Chief Complaints: * 1 . [...] MD Date: Generated for Michael junior/Kiko/Petra on: 06/04/2024 07:01 PM EST
--- OUTSIDE RECORDS SUMMARY | 2025-03-14 05:15 | XMS_ITS ---
Author Organization Jose E Hubbard III, MD Address [address] [place] [address] [address] [place] [address] Care Team Providers Care Converter Operator Name Role Phone Dr. Jose E [...] Omeprazole 20 MG TAKE 1 CAPSULE 30 [place] NUTES BEFORE MORNING MEAL ORALLY ONCE A [...] Diagnosis Jose E Hubbard III, MD [address] [place] [address] [place] [address] 03/14/2025 Jose E Hubbard Essential hypertensi on [...] Omeprazole 20 MG TAKE 1 CAPSULE 30 [place] NUTES BEFORE MORNING MEAL ORALLY ONCE A [...] E Hubbard , 06/14/2025 09:45:00 AM, [address] [place] [address] [address], [place], [address], Provider Name:Jose E Hubbard , 07/17/2025 10:00:00 AM, [address] [place] [address] [address], [place], [address], Progress Notes * Malu GARCIADOB:1955 ([age] yo F)Acc No.[id number]:03/14/2025 Progress Notes Patient: Malu BOJORQUEZ Provider: Una Hubbard MD :1955 A ge:69 Y S ex:Female Date:03/14/2025 Address:[address] [place] [address] [place] [phone] Subjective: * Chief Complaints: * H ypertensionGERDLeft [...] History: * Surgical History: N egative colonoscopy, [facility], Dr. York 03/2022 * Hospitalization/Major [...] E x-cigarette smoker S he lives in [place]. She was born in [place], [place]. She has been since 1997 and [...] MD Date: Generated for Printi ng/Faxing/eTransmitting on: 06/04/2024 07:01 PM EST History and Physical [...]
--- NOTE | 2025-04-04 10:41 | MHC.OFFVISCO ---
Intake Intake Visit Reasons: Anticoagulation Allergies acetaminophen (Percocet) Allergy (Severe, Verified 04/04/25 10:37) ITCHY RASH oxycodone (Percocet) Allergy (Severe, Verified 04/04/25 10:37) Itching Penicillins (PENICILLINS) Allergy (Intermediate, Verified 04/04/25 10:37) itchy rash naproxen (NAPROXEN) Allergy (Unknown, Verified 04/04/25 10:37) STOMACH PAIN Medication List - Last Reconciled 04/04/25 by Ana Maria Mccullough RN acetaminophen ER mg PO atorvastatin 80 mg PO DAILY bisacodyl 10 mg PO BEDTIME chlorhexidine gluconate 0.12% PO docusate sodium 100 mg PO BEDTIME fluoxetine 20 mg PO DAILY gabapentin 100 mg PO DAILY metformin 500 mg PO DAILY metoprolol tartrate 25 mg PO BID omeprazole 20 mg PO DAILY warfarin 4 mg See Protocol PO DAILY Nursing Note INR: 2.4- in therapeutic range 2-3 Medications and supplements reviewed- no changes No changes in health, diet, medications, or supplements, Denies any signs and symptoms of bleeding or bruising or clotting. Bleeding, bruising, clotting discussed Nutritional guidance given Dose: 4mg x 2, 2mg x 5 F/U INR: 2 weeks Patient verbalizes understanding of instructions given to acs in w/c acompanied by brother Darryl Barry Initial Assessment Social Hx Patient Tobacco Use Status: Never used Tobacco alcohol intake: never Alcohol intake frequency: does not drink Questionnaires HAS-BLED Does the patient had uncontrolled Hypertension?: No Does the patient have renal disease?: No Does the patient have liver disease?: No Does the patient have a history of stroke?: Yes Has the patient had major bleeding or predisposition to bleeding?: No Does the patient have labile INRs?: No Is the patient over 65 years of age?: Yes Is the patient on medications that gives them a predisposition to bleeding?: Yes Does the patient use alcohol?: No HAS-BLED Score: 3 CHADSVASC Age: 66-74 Gender: Female Does the patient have a history of CHF?: No Does the patient have a history of Hypertension?: Yes Does the patient have a history of Stroke/TIA/Thromboembolism?: Yes Does the patient have a history of Vascular Disease (prior WI, PAD or aortic plaque)?: No Does the patient have a history of Diabetes?: No CHADS VACS Score: 5 Jamila Prediction Score Rsk VTE Active Cancer: No Previous VTE, excluding superficial vein thrombosis: No Reduced mobility: Yes Already known Thrombophilic Condition: No With-in last month Trauma and/or Surgery: No Elderly 70 year or older: No Heart and/or Respiratory Failure: No Acute Myocardial infarction and/or Ischemic Stroke: Yes Acute Infection and/or Rheumatologic Disorder: No Obesity (BMI 30 or greater): Yes Ongoing Hormonal Treatment: No Score: 5 Jamila Score less than 4; Low Risk of VTE Jamila Score 4 or greater; High Risk of VTE Coding Level of Care Code Est Patient Level 1 Diagnoses Current use of anticoagulant therapy Z79.01 Assessment & Plan Assessment & Plan (1) Current use of anticoagulant therapy: Code(s): Z79.01 - [facility] (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
[2025-04-04 10:42] LABS: Prothrombin Time Whole Bld POC 28.6 sec (11.1-13.5); ~PT, ~INR - Anti Coag Clinic 2.4 (0.9-1.1)
--- OUTSIDE RECORDS SUMMARY | 2025-04-04 19:01 | XMS_ITS | Clinical Summary ---
Author Organization [email or web address] Address [address] [facility] [address] [place] [address] Care Team Providers Care Veterinary Radiologist Name Role Phone Unavailable Primary Care Provider [...] patient's age to complete this topic Insurance [facility] MEDICAID STAND ADULT
--- OUTSIDE RECORDS SUMMARY | 2025-04-04 19:01 | XMS_ITS | Patient Health Record ---
Author Organization [facility] Address [address] [place] [address] Care Team Providers Care Electric Mule Operator Name Role Phone Jose E Hubbard MD Primary Care Provider UnavailKhadar Payne Unavailable [phone] Allergies Allergen (clinical drug ingredient) Drug/Non Drug [...] Omeprazole 20 MG take 1 capsule by [facility] twice a day 30 MINUTES PRIOR TO BREAKFAST AND SUPPER Oral; Duration: 30 Active Vitamin D3 400 units once daily Active Social History Tobacco use other than smoking: Question Answer Notes Are you an other tobacco user? No Problems Problem Type SNOMED Code ICD Code Onset Dates Problem Status W/U Status Risk Notes Problem Arthralgia (24585876) Arthralgia (719.40) Active confirmed Problem Disorder of joint of ankle and/or foot (302973736) Arthritis - Degenerative (719.97) Active confirmed Problem Hammer toe (161978546) Hammer toe (735.4) Active confirmed Problem Onychomycosis (472469038) Onychomycosis (110.1) Active confirmed Problem Pain in limb (67423625) Pain in Limb (729.5) Active confirmed Problem Tenosynovitis (32498081) Tenosynovitis (727.06) Active confirmed Problem Foot ulcer (18730414) Ulcer of Other Part of Foot (707.15) Active confirmed Plan Of Treatment Pending Test Test Name Order Date X ray : Foot, left 3V 12/28/2011 99395- Debride <25 sq cm 08/17/2013 Insurance Providers Payer Name Payer Address Payer Phone Subscriber Number Group Number Insured Name Patient Relationship to Insured Coverage Start Date Coverage End Date [facility] [address] [place] [address] [id number] GAYLA AIKEN Self - patient is the insured Medical (General) History Medical History History ICD Code fibromyalgia Reflux Surgical History Surgery Date(Month/Year) foot surgery 2008 hand/wrist 2007
--- OUTSIDE RECORDS SUMMARY | 2025-04-04 19:02 | XMS_ITS | Patient Health Record ---
Author Organization Jose E Hubbard III, MD Address [address] [place] [address] [place] [address] Care Team Providers Care Ornamental Brick Installer Name Role Phone Dr. Jose E Hubbard III Primary Care Provider [phone] Allergies Allergen (clinical drug ingredient) Drug/Non Drug Allergy documented on EMR Reaction Allergy Type Onset Date Status acetaminophen / oxycodone Percocet Unknown Drug Allergy Active miconazole Monistat 3 burning Drug Allergy Activ e Results Component Value Reference Range Notes INR WHOLE BLOOD POC Reviewed date:04/04/2024 09:01:19 PM Interpretation: Performing Lab:[facility], [place], [address] [place] [phone] Notes/Report: PT, INR - [facility] 2.4 0.9-1.1 METER #: [id number] INTERNATIONAL NORMALIZED RATIO (INR) REFERENCE RANGES Reference [...] OC Reviewed date:04/04/2024 09:01:19 PM Interpretation: Performing Lab:[facility], [place], [address] [place] [phone] Notes/Report: Prothrombin Time Whole Bld POC 28.9 11.1-13.5 sec INR WHOLE BLOOD POC Reviewed date:04/24/2024 05:20:08 AM Interpretation: Performing Lab:[facility], [place], [address] [place] [phone] Notes/Report: PT, INR - [facility] 2.6 0.9-1.1 METER #: [id number] INTERNATIONAL NORMALIZED RATIO (INR) REFERENCE RANGES Reference [...] OC Reviewed date:04/24/2024 05:20:08 AM Interpretation: Performing Lab:[facility], [place], [address] [place] [phone] Notes/Report: Prothrombin Time Whole Bld POC 31.6 11.1-13.5 sec INR WHOLE BLOOD POC Reviewed date:05/12/2024 04:18:48 PM Interpretation: Performing Lab:[facility], [place], [address] [place] [phone] Notes/Report: PT, INR - [facility] 1.9 0.9-1.1 METER #: [id number] INTERNATIONAL NORMALIZED RATIO (INR) REFERENCE RANGES Reference [...] OC Reviewed date:05/12/2024 04:18:48 PM Interpretation: Performing Lab:[facility], [place], [address] [place] [phone] Notes/Report: Prothrombin Time Whole Bld POC 23.3 11.1-13.5 sec INR WHOLE BLOOD POC Reviewed date:05/29/2024 10:54:12 AM Interpretation: Performing Lab:[facility], [place], [address] [place] [phone] Notes/Report: PT, INR - [facility] 2.4 0.9-1.1 METER #: [id number] INTERNATIONAL NORMALIZED RATIO (INR) REFERENCE RANGES Reference [...] OC Reviewed date:05/29/2024 10:54:12 AM Interpretation: Performing Lab:[facility], [place], [address] [place] [phone] Notes/Report: Prothrombin Time Whole Bld POC 29.1 11.1-13.5 sec INR WHOLE BLOOD POC Reviewed date:06/19/2024 06:09:47 PM Interpretation: Performing Lab:[facility], [place], [address] [place] [phone] Notes/Report: PT, INR - [facility] 2.2 0.9-1.1 METER #: [id number] INTERNATIONAL NORMALIZED RATIO (INR) REFERENCE RANGES Reference [...] OC Reviewed date:06/19/2024 06:09:47 PM Interpretation: Performing Lab:[facility], [place], [address] [place] [phone] Notes/Report: Prothrombin Time Whole Bld POC 26.9 11.1-13.5 sec INR WHOLE BLOOD POC Reviewed date:06/28/2024 09:04:14 AM Interpretation: Performing Lab:[facility], [place], [address] [place] [phone] Notes/Report: PT, INR - [facility] 2.6 0.9-1.1 METER #: [id number] INTERNATIONAL NORMALIZED RATIO (INR) REFERENCE RANGES Reference [...] OC Reviewed date:06/28/2024 09:04:14 AM Interpretation: Performing Lab:[facility], [place], [address] [place] [phone] Notes/Report: Prothrombin Time Whole Bld POC 31.7 11.1-13.5 sec INR WHOLE BLOOD POC Reviewed date:08/01/2024 12:17:16 PM Interpretation: Performing Lab:[facility] [place], [address] [place] [phone] Notes/Report: PT, INR - [facility] 2.0 0.9-1.1 METER #: [id number] INTERNATIONAL NORMALIZED RATIO (INR) REFERENCE RANGES Reference [...] OC Reviewed date:08/01/2024 12:17:17 PM Interpretation: Performing Lab:[address] [phone] Notes/Report: Prothrombin Time Whole Bld POC 24.5 11.1-13.5 sec INR WHOLE BLOOD POC Reviewed date:08/01/2024 12:17:16 PM Interpretation: Performing Lab:[address] [phone] Notes/Report: PT, INR - [facility] 1.7 0.9-1.1 METER #: [id number] INTERNATIONAL NORMALIZED RATIO (INR) REFERENCE RANGES Reference [...] OC Reviewed date:08/01/2024 12:17:16 PM Interpretation: Performing Lab:[facility], [place], [address] [place] [phone] Notes/Report: Prothrombin Time Whole Bld POC 20.4 11.1-13.5 sec INR WHOLE BLOOD POC Reviewed date:08/07/2024 10:48:30 AM Interpretation: Performing Lab:[facility] [place], [address] [place] [phone] Notes/Report: PT, INR - [facility] 2.5 0.9-1.1 METER #: [id number] INTERNATIONAL NORMALIZED RATIO (INR) REFERENCE RANGES Reference [...] OC Reviewed date:08/07/2024 10:48:30 AM Interpretation: Performing Lab:[facility], [place], [address] [place] [phone] Notes/Report: Prothrombin Time Whole Bld POC 29.5 11.1-13.5 sec INR WHOLE BLOOD POC Reviewed date:08/24/2024 08:14:12 PM Interpretation: Performing Lab:[facility] [place], [address] [place] [phone] Notes/Report: PT, INR - [facility] 2.8 0.9-1.1 METER #: [id number] INTERNATIONAL NORMALIZED RATIO (INR) REFERENCE RANGES Reference [...] OC Reviewed date:08/24/2024 08:14:12 PM Interpretation: Performing Lab:[facility] [place], [address] [place] [phone] Notes/Report: Prothrombin Time Whole Bld POC 33.4 11.1-13.5 sec INR WHOLE BLOOD POC Reviewed date:09/13/2024 03:54:56 PM Interpretation: Performing Lab:[facility] [place], [address] [place] [phone] Notes/Report: PT, INR - [facility] 4.5 0.9-1.1 METER #: [id number] INTERNATIONAL NORMALIZED RATIO (INR) REFERENCE RANGES Reference [...] OC Reviewed date:09/13/2024 03:54:56 PM Interpretation: Performing Lab:[facility] [place], [address] [place] [phone] Notes/Report: Prothrombin Time Whole Bld POC 53.6 11.1-13.5 sec INR WHOLE BLOOD POC Reviewed date:09/13/2024 03:54:56 PM Interpretation: Performing Lab:[facility] [place], [address] [place] [phone] Notes/Report: PT, INR - [facility] 3.0 0.9-1.1 METER #: [id number] INTERNATIONAL NORMALIZED RATIO (INR) REFERENCE RANGES Reference [...] OC Reviewed date:09/13/2024 03:54:56 PM Interpretation: Performing Lab:[address] [phone] Notes/Report: Prothrombin Time Whole Bld POC 36.2 11.1-13.5 sec INR WHOLE BLOOD POC Reviewed date:09/27/2024 11:28:44 AM Interpretation: Performing Lab:[address] [phone] Notes/Report: PT, INR - [facility] 3.2 0.9-1.1 METER #: [id number] INTERNATIONAL NORMALIZED RATIO (INR) REFERENCE RANGES Reference [...] OC Reviewed date:09/27/2024 11:28:44 AM Interpretation: Performing Lab:[address] [phone] Notes/Report: Prothrombin Time Whole Bld POC 38.7 11.1-13.5 sec Complete Blood Count Auto Di ff Reviewed date:10/05/2024 05:27:32 AM Interpretation: Performing Lab:[address] [phone] Notes/Report: White Blood Count 7.6 4.8-10.8 X10*3/uL [...] NRBC Abs Auto 0.000 0.0-0.012 X10*3/uL Comprehensive [place]. Panel Fa st Reviewed date:10/05/2024 05:27:32 AM Interpretation: Performing Lab:[facility], [place], [address] [place] [phone] Notes/Report: Sodium 144 135-145 mmol/L Potassium 4.2 [...] Panel Reviewed date:10/05/2024 05:27:32 AM Interpretation: Performing Lab:[address] [phone] Notes/Report: Triglycerides 61 <150 mg/dL Desirable Triglyceride: [...] Random Reviewed date:10/05/2024 05:27:32 AM Interpretation: Performing Lab:[facility], [place], [address] [place] [phone] Notes/Report: Creatinine Urine 132.65 Microalbumin Urine 13.0 Microalbum/Creatinine Ratio Ur 9.8 <30 ug/mg cr Albumin/Creatinine Ratio Reference Ranges: Normal: < 30 ug/mg creatinine Microalbuminuria: 30 - 300 ug/mg creatinine Clinical Albuminuria: > 300 ug/mg creatinine INR WHOLE BLOOD POC Reviewed date:10/05/2024 05:27:32 AM Interpretation: Performing Lab:[address] [phone] Notes/Report: PT, INR - [facility] 3.2 0.9-1.1 METER #: [id number] INTERNATIONAL NORMALIZED RATIO (INR) REFERENCE RANGES Reference [...] OC Reviewed date:10/05/2024 05:27:32 AM Interpretation: Performing Lab:[facility] [place], [address] [place] [phone] Notes/Report: Prothrombin Time Whole Bld POC 38.7 11.1-13.5 sec Hemoglobin A1c Reviewed date:10/05/2024 05:27:32 AM Interpretation: Performing Lab:[facility] [place], [address] [place] [phone] Notes/Report: Hemoglobin A1c % 7.3 <6.0 % [...] average glucose, using the formula of the K6R-Janfsyq Average Glucose study (ADAG), Diabetes Care, Vol.31,#8, 2007 INR WHOLE BLOOD POC Reviewed date:10/20/2024 01:43:10 PM Interpretation: Performing Lab:[facility] [place], [address] [place] [phone] Notes/Report: PT, INR - [facility] 3.5 0.9-1.1 METER #: [id number] INTERNATIONAL NORMALIZED RATIO (INR) REFERENCE RANGES Reference [...] OC Reviewed date:10/20/2024 01:43:10 PM Interpretation: Performing Lab:[facility] [place], [address] [place] [phone] Notes/Report: Prothrombin Time Whole Bld POC 42.2 11.1-13.5 sec INR WHOLE BLOOD POC Reviewed date:11/01/2024 11:06:36 AM Interpretation: Performing Lab:[facility], [place], [address] [place] [phone] Notes/Report: PT, INR - [facility] 2.3 0.9-1.1 METER #: [id number] INTERNATIONAL NORMALIZED RATIO (INR) REFERENCE RANGES Reference [...] OC Reviewed date:11/01/2024 11:06:36 AM Interpretation: Performing Lab:[facility] [place], [address] [place] [phone] Notes/Report: Prothrombin Time Whole Bld POC 27.6 11.1-13.5 sec INR WHOLE BLOOD POC Reviewed date:11/22/2024 01:44:56 PM Interpretation: Performing Lab:[facility] [place], [address] [place] [phone] Notes/Report: PT, INR - [facility] 2.0 0.9-1.1 METER #: [id number] INTERNATIONAL NORMALIZED RATIO (INR) REFERENCE RANGES Reference [...] OC Reviewed date:11/22/2024 01:44:56 PM Interpretation: Performing Lab:[facility] [place], [address] [place] [phone] Notes/Report: Prothrombin Time Whole Bld POC 24.0 11.1-13.5 sec INR WHOLE BLOOD POC Reviewed date:12/20/2024 12:42:36 PM Interpretation: Performing Lab:[facility] [place], [address] [place] [phone] Notes/Report: PT, INR - [facility] 3.3 0.9-1.1 METER #: [id number] INTERNATIONAL NORMALIZED RATIO (INR) REFERENCE RANGES Reference [...] OC Reviewed date:12/20/2024 12:42:36 PM Interpretation: Performing Lab:[facility] [place], [address] [place] [phone] Notes/Report: Prothrombin Time Whole Bld POC 39.7 11.1-13.5 sec INR WHOLE BLOOD POC Reviewed date:01/07/2025 05:06:41 AM Interpretation: Performing Lab:[facility] [place], [address] [place] [phone] Notes/Report: PT, INR - [facility] 3.0 0.9-1.1 METER #: [id number] INTERNATIONAL NORMALIZED RATIO (INR) REFERENCE RANGES Reference [...] OC Reviewed date:01/07/2025 05:06:41 AM Interpretation: Performing Lab:[facility] [place], [address] [place] [phone] Notes/Report: Prothrombin Time Whole Bld POC 35.8 11.1-13.5 sec INR WHOLE BLOOD POC Reviewed date:01/18/2025 11:11:48 AM Interpretation: Performing Lab:[facility] [place], [address] [place] [phone] Notes/Report: PT, INR - [facility] 2.1 0.9-1.1 METER #: [id number] INTERNATIONAL NORMALIZED RATIO (INR) REFERENCE RANGES Reference [...] OC Reviewed date:01/18/2025 11:11:48 AM Interpretation: Performing Lab:[facility] [place], [address] [place] [phone] Notes/Report: Prothrombin Time Whole Bld POC 25.2 11.1-13.5 sec INR WHOLE BLOOD POC Reviewed date:02/04/2025 01:20:27 PM Interpretation: Performing Lab:[facility] [place], [address] [place] [phone] Notes/Report: PT, INR - [facility] 3.5 0.9-1.1 METER #: [id number] INTERNATIONAL NORMALIZED RATIO (INR) REFERENCE RANGES Reference [...] OC Reviewed date:02/04/2025 01:20:27 PM Interpretation: Performing Lab:[facility] [place], [address] [place] [phone] Notes/Report: Prothrombin Time Whole Bld POC 41.7 11.1-13.5 sec INR WHOLE BLOOD POC Reviewed date:02/09/2025 10:33:25 AM Interpretation: Performing Lab:[facility] [place], [address] [place] [phone] Notes/Report: PT, INR - [facility] 3.0 0.9-1.1 METER #: [id number] INTERNATIONAL NORMALIZED RATIO (INR) REFERENCE RANGES Reference [...] OC Reviewed date:02/09/2025 10:33:25 AM Interpretation: Performing Lab:[facility] [place], [address] [place] [phone] Notes/Report: Prothrombin Time Whole Bld POC 36.1 11.1-13.5 sec INR WHOLE BLOOD POC Reviewed date:03/07/2025 04:08:20 PM Interpretation: Performing Lab:[facility] [place], [address] [place] [phone] Notes/Report: PT, INR - [facility]ag Clinic 2.2 0.9-1.1 METER #: [id number] INTERNATIONAL NORMALIZED RATIO (INR) REFERENCE RANGES Reference [...] OC Reviewed date:03/07/2025 04:08:20 PM Interpretation: Performing Lab:[facility] [place], [address] [place] [phone] Notes/Report: Prothrombin Time Whole Bld POC 26.4 11.1-13.5 sec INR WHOLE BLOOD POC Reviewed date:03/23/2025 05:24:34 AM Interpretation: Performing Lab:[facility] [place], [address] [place] [phone] Notes/Report: PT, INR - [facility]ag Clinic 2.3 0.9-1.1 METER #: [id number] INTERNATIONAL NORMALIZED RATIO (INR) REFERENCE RANGES Reference [...] Prothrombin Time Whole Bld P OC Reviewed date:03/23/2025 05:24:34 AM Interpretation: Performing Lab:[facility] [place], [address] [place] [phone] Notes/Report: Prothrombin Time Whole Bld POC 27.3 11.1-13.5 sec INR WHOLE BLOOD POC Reviewed date:04/04/2025 02:31:59 PM Interpretation: Performing Lab:[facility] [place], [address] [place] [phone] Notes/Report: PT, INR - Anti Coag Clinic 2.4 0.9-1.1 METER #: [id number] INTERNATIONAL NORMALIZED RATIO (INR) REFERENCE RANGES Reference [...] Prothrombin Time Whole Bld P OC Reviewed date:04/04/2025 02:31:59 PM Interpretation: Performing Lab:[facility] [place], [address] [place] [phone] Notes/Report: Prothrombin Time Whole Bld POC 28.6 11.1-13.5 sec Reason For Referral No Information Medications Medication SIG (Take, Route, Frequency, Duration) Notes Start Date End Date Status Docusate Sodium Acti ve diazePAM 5 MG 1 tablet if needed O rally every 4 hours 02/16/2025 Active Gabapentin 100 MG 1 capsule Orally Onc e a day Active Omeprazole 20 MG TAKE 1 CAPSULE 30 IA NUTES BEFORE MORNING MEAL ORALLY ONCE A [...] Problem Status W/U Status Risk Notes Problem 4205719 Former smoker (Z87.891) Active confirmed He is unable to obtain cigarettes. She does not smoke since his stroke. She says she does not want to. Problem 17768079 Fibromyalgia (M79.7) Active confirmed Fibromyalgia lately has been low-grade she lives with a without a great deal difficulty. No medical therapies necessary. Problem 316661015 Gastro-esophagea l reflux disease without esophagitis (K21.9) Active confirmed She will continue on omeprazole and liquid antacid as needed. Problem 33940577 Essential hypertension (I10) Active confirmed Low The most recent blood pressure was within normal limits and no change in her regimen was necessary. Problem 443371630 Anticoagulation adequate (Z79.01) Active confirmed She has had no bleeding and is compliant with her therapy. Problem CVA - Cerebrovascular accident (652038148) CVA (cerebral vascular accident) (I63.9) Active confirmed She is currently anticoagulated because of the stroke. She has a dense right hemiplegia, but no further neurological symptoms. She is awake and alert and responsive to questions. Her speech is fluent. Problem 512546692 Morbid obesity (E66.01) Active confirmed He discussed her overweight status. We discussed diet and nutrition. We made plans for her to lose weight at a rate of one half of a pound per week. Problem Right hemiplegia (268441629) Right hemiplegia (G81.91) Active confirmed There has been no change in the weakness of the right arm and leg. She remains confined to a wheelchair. The weakness in the right arm is dense. Problem 750957431 Type 2 diabetes mellitus without complication, without [...] Diagnosis Jose E Hubbard III, MD [address] [place] [address] [place] [phone] 07/14/2024 Jose E Hubbard Essential hypertensi on I10 ; CVA (cerebral vascular accident) I63.9 ; Gastro-esophageal reflux disease without esophagitis K21.9 ; Anticoagulation adequate Z79.01 ; Former smoker Z87.891 ; Fibromyalgia M79.7 and Right hemiplegia G81.91 Jose E Hubbard III, MD [address] [place] [address] [place] [address] 10/11/2024 Jose E Hubbard Essential hypertensi on I10 ; CVA (cerebral vascular accident) I63.9 ; Fibromyalgia M79.7 ; Right hemiplegia G81.91 ; Former smoker Z87.891 ; Anticoagulation adequate Z79.01 ; Type 2 diabetes mellitus without complication, without long-term current use of insulin E11.9 and Obesity (BMI 30-39.9) E66.9 Jose E Hubbard III, MD [address] [place] [phone] 10/30/2024 Jose E Hubbard Essential hypertensi on I10 ; Acute abdominal pain R10.9 ; Anticoagulation adequate Z79.01 ; CVA (cerebral vascular accident) I63.9 ; Gastro-esophageal reflux disease without esophagitis K21.9 ; Fibromyalgia M79.7 ; Type 2 diabetes mellitus without complication, without long-term current use of insulin E11.9 ; Right hemiplegia G81.91 and Former smoker Z87.891 Jose E Hubbard III, MD [address] [place] [address] [place] [address] 12/06/2024 Jose E Hubbard Essential hypertensi on [...] M79.7 Jose E Hubbard III, MD [address] [place] [phone] 03/14/2025 Jose E Hubbard Essential hypertensi on I10 ; CVA (cerebral vascular accident) I63.9 ; Type 2 diabetes mellitus without complication, without long-term current use of insulin E11.9 ; Gastro-esophageal reflux disease without esophagitis K21.9 ; Fibromyalgia M79.7 ; Anticoagulation adequate Z79.01 ; Former smoker Z87.891 and Right hemiplegia G81.91 Jose E Hubbard III, MD [address] [place] [address] [place] [address] 07/25/2024 Jose E Hubbard III, MD [address] [place] [address] [place] [phone] 07/25/2024 Jose E Hubbard III, MD [address] [place] [address] [place] [phone] 09/20/2024 Jose E Hubbard Essential hypertensi on I10 Jose E Hubbard III, MD [address] [place] [phone] 09/26/2024 Jose E Hubbard III, MD [address] [place] [address] [place] [phone] 11/14/2024 Jose E Hubbard Essential hypertensi on I10 Jose E Hubbard III, MD [address] [place] [address] [place] [phone] 02/05/2025 Jose E Hubbard Essential hypertensi on I10 Jose E Hubbard III, MD [address] [place] [address] [place] [address] 02/15/2025 Jose E Hubbard III, MD [address] [place] [address] [place] [address] 02/16/2025 Jose E Hubbard Assessments Encounter Date [...] 07/13/2023 Lipid Panel 02/16/2024 Microalbumin, Random 07/14/2024 T Spot TB 08/04/2022 MM tomosynthesis screening BI 12/06/2024 US abdomen complete 07/08/2022 Hemoglobin A1c 03/14/2025 Hemoglobin A1c 12/06/2024 Hemoglobin A1c 07/14/2024 Next Appt Details Provider Name:Jose E Hubbard , 06/14/2025 09:45:00 AM, [address] [place] [address] [place], [phone], Provider Name:Jose E Hubbard , 07/17/2025 10:00:00 AM, [address] [place] [address] [address], [address], [place], [phone], Insurance Providers Payer Name Payer Address Payer Phone Subscriber Number Group Number Insured Name Patient Relationship to Insured Coverage Start Date Coverage End Date MEDICARE NGS [address] [place] [phone] [id number] Malu Garcia Self - patient is the [...]
--- OUTSIDE RECORDS SUMMARY | 2025-04-04 19:02 | XMS_ITS | Clinical Summary ---
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
== END 2025-04-04 10:53 | disposition home or self-care (01) ==
LOC: HO.ACS 10:05
PROVIDERS: PCP Internal Medicine Medical Oncology; Visit Provider Internal Medicine Medical Oncology
DX: Z79.01 Long term (current) use of anticoagulants (principal)

== ENCOUNTER → 2025-04-04 10:05 | Outpatient (BNVA) | payer MEDICARE, SELFPAY | PROVIDERS: PCP Internal Medicine Medical Oncology; Visit Provider Internal Medicine Medical Oncology | DX: I69.90 Unspecified sequelae of unspecified cerebrovascular disease (principal); Z51.81 Encounter for therapeutic drug level monitoring; Z79.01 Long term (current) use of anticoagulants | CPT/HCPCS: 85610; 99211 ==

== ENCOUNTER 2025-04-19 10:14 | Outpatient (AMB) | payer MEDICARE, MEDICAID, SELFPAY ==
--- OUTSIDE RECORDS SUMMARY | 2024-09-26 04:54 | XMS_ITS ---
Author Organization Jose E Hubbard III, MD Address [address] [place] [address] [place] [address] Care Team Providers Care Oncology Social Worker Name Role Phone Dr. Jose E Hubbard III Primary Care Provider [phone] Medications Medication SIG (Take, Route, Frequency, Duration) Notes Start Date End Date Status Atorvastatin Calcium 80 MG 1 tablet Oral ly Once a day for 90 days Active Social History Sex Assigned At : Social History Observation Description Sex Assigned At Female Encounters Encounter Location Date Provider Diagnosis Jose E Hubbard III, MD [address] [place] [address] [place] [address] 09/26/2024 Jose E Hubbard Plan Of Treatment Medication Medication Name Sig Start Date Stop Date Notes Atorvastatin Calcium 80 MG 1 tablet Oral ly Once a day for 90 days Next Appt Details Provider Name:Jose E Hubbard , 06/14/2025 09:45:00 AM, [address] [place] [address] [place], [address], Provider Name:Jose E Hubbard , 07/17/2025 10:00:00 AM, [address] [place] [address] [place], [address], Progress Notes * Malu GARCIADOB:1955 ([age] yo F)Acc No.[id number]:09/26/2024 Patient: Malu BOJORQUEZ :1955 A ge:68 Y S ex:Female Address:[address] [place] [address] [place] [address] * Refills Refill Atorvastatin Calcium Tablet, 80 MG, Orally, 90 Tablet, 1 tablet, Once a day, 90 days, Refills=3 * true * Date: Generated for Michael junior/Kiko/Petra on: 06/20/2024 12:20 PM EST
--- OUTSIDE RECORDS SUMMARY | 2024-10-11 05:00 | XMS_ITS ---
Author Organization Jose E Hubbard III, MD Address [address] [place] [address] [address] [place] [address] Care Team Providers Care Software Applications Architect Name Role Phone Dr. Jose E Hubbard III Primary Care Provider [phone] Allergies Allergen (clinical drug ingredient) Drug/Non Drug [...] Diagnosis Jose E Hubbard III, MD [address] [place] [address] [place] [address] 10/11/2024 Jose E Hubbard Essential hypertensi on [...] Name:Jose E Hubbard , 06/14/2025 09:45:00 AM, [address] [place] [address] [address], [place], [address], Provider Name:Jose E Hubbard , 07/17/2025 10:00:00 AM, [address] [place] [address] [address], [place], [phone], Progress Notes * Malu GARCIADOB:1955 ([age] yo F)Acc No.[id number]:10/11/2024 Progress Notes Patient: Malu BOJORQUEZ Provider: Una Hubbard MD :1955 A ge:68 Y S ex:Female Date:10/11/2024 Address:[address] [place] [address] F[place]IE Wenceslao [id number] Subjective: * Chief Complaints: * H ypertensionHistory [...] History: * Surgical History: N egative colonoscopy, [facility], Dr. York 03/2022 * Hospitalization/Major Diagno stic [...] E x-cigarette smoker S he lives in [place]. She was born in [place], [place]. She has been since 1997 and [...] 10/11/2024 Generated for Jerii ng/Ladonnag/eTransmitting on: 1 06/20/2024 12:21 PM EST History and Physical Notes * [...]
--- OUTSIDE RECORDS SUMMARY | 2024-10-30 08:30 | XMS_ITS ---
Author Organization Jose E Hubbard III, MD Address [address] [place] [address] [address] [place] [address] Care Team Providers Care Building Cleaning Supervisor Name Role Phone Dr. Jose E Hubbard [...] Provider Diagnosis Jose E Hubbard III, MD [address] [place] [address] [address] [place], [place]I [address] 10/30/2024 Jose E Hubbard Essential hypertensi on [...] E Hubbard , 06/14/2025 09:45:00 AM, [address] [place] [address] [address], [place], [address], Provider Name:Jose E Hubbard , 07/17/2025 10:00:00 AM, [address] [place] [address] [address], [place], [address], Progress Notes * Malu GARCIADOB:1955 ([age] yo F)Acc No.[id number]:10/30/2024 Patient: Malu BOJORQUEZ Provider: Una Hubbard MD :1955 A ge:69 Y S ex:Female Date:10/30/2024 Address:[address] [place] [address] YEN Billy [id number] Subjective: * Chief Complaints: * A bdominal [...] of provider rendering services: { ...} [address] [facility] [address] L ocation of patient: mac barajas listed [...] History: * Surgical History: N egative colonoscopy, [facility], Dr. York 03/2022 * Hospitalization/Major Diagno [...] E x-cigarette smoker S he lives in [place]. She was born in [place]. She has been since 1997 and [...] 10/30/2024 Generated for Michael junior/Kiko/Eugenieitting on: 1 06/20/2024 12:19 PM EST History and Physical Notes * HPI (History of Present Illness) Category Sub-Category Detail Notes Telehealth Location of [facility] rendering services:: {...} [address] [place], [place] [address] Location of patient:: address listed in demographics [...]
--- OUTSIDE RECORDS SUMMARY | 2024-11-14 04:22 | XMS_ITS ---
Author Organization Jose E Hubbard III, MD Address [address] [place] [address] [place] [address] Care Team Providers Care Welfare Administrator Name Role Phone Dr. Jose E Hubbard III Primary Care Provider REASON FOR VISIT Rx Request Medications Medication SIG (Take, Route, Fr equency, Duration) Notes Start Date End Date Status Warfarin Sodium 4 MG 1 tablet Orally Onc e a day for 90 days Active Social History Sex Assigned At : Social History Observation Description Sex Assigned At Female Encounters Encounter Location Date Provider Diagnosis Jose E Hubbard III, MD [address] [place] [address] [place] [address] 11/14/2024 Jose E Hubbard Essential hypertensi on I10 Assessments Encounter Date Diagnosis (ICD Code) Assessment Notes Treat ment Notes Treatment Clinical Notes 11/14/2024 Essential hypertension (ICD-10 - I10) The most recent blood pressure was 126/77 and no change in her regimen was necessary. Plan Of Treatment Medication Medication Name Sig Start Date Stop Date Notes Warfarin Sodium 4 MG 1 tablet Orally Onc e a day for 90 days Next Appt Details Provider Name:Jose E Hubbard , 06/14/2025 09:45:00 AM, [address] [place] [address] [place], [address], Provider Name:Jose E Hubbard , 07/17/2025 10:00:00 AM, [address] [place] [address] [place], [address], Progress Notes * Malu GARCIADOB:1955 ([age] yo F)Acc No.[id number]:11/14/2024 Patient: Malu BOJORQUEZ :1955 A ge:69 Y S ex:Female Address:[address] [place] [address] * Refills Refill Warfarin Sodium Tablet, 4 MG, Orally, 90 Tablet, 1 tablet, Once a day, 90 days, Refills=3 * true * Date: Generated for Michael junior/Kiko/Eugenieitting on: 06/20/2024 12:19 PM EST
--- OUTSIDE RECORDS SUMMARY | 2024-12-06 05:00 | XMS_ITS ---
Author Organization Jose E Hubbard III, MD Address [address] [place] [address] [address] [place] [address] Care Team Providers Care Fitter / Welder Name Role Phone Dr. Jose E Hubbard III Primary Care Provider [phone] Allergies Allergen (clinical drug ingredient) Drug/Non Drug [...] Provider Diagnosis Jose E Hubbard III, MD [address] [place] [address] [place] [address] 12/06/2024 Jose E Hubbard Essential hypertensi on [...] Name:Jose E Hubbard , 06/14/2025 09:45:00 AM, [address] [place] [address] [address], [place], [address], Provider Name:Jose E Hubbard , 07/17/2025 10:00:00 AM, [address] [place] [address] [address], [place], [address], Progress Notes * Elmer GARCIA:1955 ([age] yo F)Acc No.[id number]:12/06/2024 Progress Notes Patient: Malu BOJORQUEZ Provider: Una Hubbard MD :1955 A ge:69 Y S ex:Female Date:12/06/2024 Address:[address] [place], [place] [phone] Subjective: * Chief Complaints: * H [...] History: * Surgical History: N egative colonoscopy, [facility], Dr. York 03/2022 * Hospitalization/Major Diagno [...] E x-cigarette smoker S he lives in [place]. She was born in [place]. She has been since 1997 and [...] mg/dL) 166 (Ref Range: mg/dL) * Lab:Comprehensive [place]. Pane l Fast * Collection Date 10/04/2024 [...] 0 12/06/2024 Generated for Michael junior/Kiko/Eugenieitting on: 06/20/2024 12:20 PM EST History and Physical Notes * [...]
--- OUTSIDE RECORDS SUMMARY | 2025-02-05 08:20 | XMS_ITS ---
Author Organization Jose E Hubbard III, MD Address [address] [place] [address] [place] [address] Care Team Providers Care Faith Doctor Name Role Phone Dr. Jose E Hubbard III Primary Care Provider REASON FOR VISIT Rx Refill Medications Medication SIG (Take, Route, Fr equency, Duration) Notes Start Date End Date Status Gabapentin 100 MG 1 capsule Orally Onc e a day for 90 days Active Social History Sex Assigned At : Social History Observation Description Sex Assigned At Female Encounters Encounter Location Date Provider Diagnosis Jose E Hubbard III, MD [address] [place] [address] [place] [address] 02/05/2025 Jose E Hubbard Essential hypertensi on I10 Assessments Encounter Date Diagnosis (ICD Code) Assessment Notes Treat ment Notes Treatment Clinical Notes 02/05/2025 Essential hypertension (ICD-10 - I10) The most recent blood pressure was within normal limits and no change in her regimen was necessary. Plan Of Treatment Medication Medication Name Sig Start Date Stop Date Notes Gabapentin 100 MG 1 capsule Orally Once a day for 90 days Next Appt Details Provider Name:Jose E Hubbard , 06/14/2025 09:45:00 AM, [address] [place] [address] [place], [address], Provider Name:Jose E Hubbard , 07/17/2025 10:00:00 AM, [address] [place] [address] [place], [address], Progress Notes * Elmer GARCIA:1955 ([age] yo F)Acc No.[id number]:02/05/2025 Patient: Malu BOJORQUEZ :1955 A ge:69 Y S ex:Female Address:[address] [place] [phone] * Refills Refill Gabapentin Capsule, 100 MG, Orally, 90, 1 capsule, Once a day, 90 days, Refills=3 * true * Date: Generated for Michael junior/Kiko/Vonsmitting on: 06/20/2024 12:20 PM EST
--- OUTSIDE RECORDS SUMMARY | 2025-02-15 06:47 | XMS_ITS ---
Author Organization Jose E Hubbard III, MD Address [address] [place] [address] [place] [address] Care Team Providers Care Vending Machine Mechanic Name Role Phone Dr. Jose E Hubbard III Primary Care Provider REASON FOR VISIT Rx Request Social History Sex Assigned At : Social History Observation Description Sex Assigned At Female Encounters Encounter Location Date Provider Diagnosis Jose E Hubbard III, MD [address] [place] [address] [place] [address] 02/15/2025 Jose E Hubbard Plan Of Treatment Next Appt Details Provider Name:Jose E Hubbard , 06/14/2025 09:45:00 AM, [address] [place] [address] [place], [address], Provider Name:Jose E Hubbard , 07/17/2025 10:00:00 AM, [address] [place] [address] [place], [address], Progress Notes * Malu GARCIADOB:1955 ([age] yo F)Acc No.[id number]:02/15/2025 Patient: Malu BOJORQUEZ :1955 A ge:69 Y S ex:Female Address:[address] [place] [address] * true * Date: Generated for Printi ng/Faxing/eTransmitting on: 1 06/20/2024 12:20 PM EST
--- OUTSIDE RECORDS SUMMARY | 2025-02-16 06:50 | XMS_ITS ---
Author Organization Jose E Hubbard III, MD Address [address] [place] [address] [place] [address] Care Team Providers Care Trademark Affixer Name Role Phone Dr. Jose E Hubbard III Primary Care Provider Medications Medication SIG (Take, Route, Frequency, Duration) Notes Start Date End Date Status diazePAM 5 MG 1 tablet if needed O rally every 4 hours for 1 days 02/16/2025 Active Social History Sex Assigned At : Social History Observation Description Sex Assigned At Female Encounters Encounter Location Date Provider Diagnosis Jose E Hubbard III, MD [address] [place] [address] [place] [address] 02/16/2025 Jose E Hubbard Plan Of Treatment Medication Medication Name Sig Start Date Stop Date Notes diazePAM 5 MG 1 tablet if needed O rally every 4 hours for 1 days 02/16/2025 Next Appt Details Provider Name:Jose E Hubbard , 06/14/2025 09:45:00 AM, [address] [place] [address] [place], [address], Provider Name:Jose E Hubbard , 07/17/2025 10:00:00 AM, [address] [place] [address] [place], [address], Progress Notes * Malu GARCIADOB:1955 ([age] yo F)Acc No.[id number]:02/16/2025 Patient: Florecita SANTOSH Malu :1955 A ge:69 Y S ex:Female Address:[address] [place] [address] [place] [address] * Refills Start diazePAM Tablet, 5 MG, Orally, 2 Tablets, 1 tablet if needed, every 4 hours, 1 days, Refills=0 * true * Date: Generated for Michael junior/Kiko/Petra on: 06/20/2024 12:20 PM EST
--- OUTSIDE RECORDS SUMMARY | 2025-03-12 12:00 | XMS_ITS ---
Author Organization Jose E Hubbard III, MD Address [address] [place] [address] [place] [address] Care Team Providers Care Vp Sales Name Role Phone Dr. Jose E Hubbard III Primary Care Provider REASON FOR VISIT Follow up Social History Sex Assigned At : Social History Observation Description Sex Assigned At Female Encounters Encounter Location Date Provider Diagnosis Jose E Hubbard III, MD [address] [place] [address] [place] [address] 03/12/2025 Jose E Hubbard Plan Of Treatment Next Appt Details Provider Name:Jose E Hubbard , 06/14/2025 09:45:00 AM, [address] [place] [address] [place], [address], Provider Name:Jose E Hubbard , 07/17/2025 10:00:00 AM, [address] [place] [address] [place], [address], Progress Notes * JOSE MaluDOB:1955 ([age] yo F)Acc No.[id number]:03/12/2025 Progress Notes Patient: Malu BOJORQUEZ Provider: Una Hubbard MD :1955 A ge:69 Y S ex:Female Date:03/12/2025 [address] [id number] Subjective: * Chief Complaints: * 1 . Follow up. * Medical History: Objective: * Vitals: Assessment: Plan: * Treatment: * Images: * The named appointment provid er may or may not be the originator of this progress note, and it is not deemed complete until electronically signed by the appointment provider. Sign off status: Pending * Provider: Una Hubbard MD Date: 1 Generated for Michael junior/Kiko/Petra on: 06/20/2024 12:19 PM EST
--- OUTSIDE RECORDS SUMMARY | 2025-03-14 05:15 | XMS_ITS ---
Author Organization Jose E Hubbard III, MD Address [address] [place] [address] [address] [place] [address] Care Team Providers Care Superintendent Local Name Role Phone Dr. Jose E Hubbard [...] Omeprazole 20 MG TAKE 1 CAPSULE 30 LA NUTES BEFORE MORNING MEAL ORALLY ONCE A [...] Diagnosis Jose E Hubbard III, MD [address] [place] [address] [address] [facility] [place] [address] 03/14/2025 Jose E Hubbard Essential hypertensi on [...] Omeprazole 20 MG TAKE 1 CAPSULE 30 LA NUTES BEFORE MORNING MEAL ORALLY ONCE A [...] Name:Jose E Hubbard , 06/14/2025 09:45:00 AM, [address] [place] [address] [address], [place], [address], Provider Name:Jose E Hubbard , 07/17/2025 10:00:00 AM, [address] [place] [address] [address], [place], [address], Progress Notes * Malu GARCIADOB:1955 ([age] yo F)Acc No.[id number]:03/14/2025 Progress Notes Patient: Malu BOJORQUEZ Provider: Una Hubbard MD :1955 A ge:69 Y S ex:Female Date:03/14/2025 Address:[address] [place] [address] [id number] Subjective: * Chief Complaints: * H ypertensionGERDLeft [...] History: * Surgical History: N egative colonoscopy, [facility], Dr. York 03/2022 * Hospitalization/Major [...] E x-cigarette smoker S he lives in [place]. She was born in [place], [place]. She [...] Date: 1 Generated for Printi ng/Faxing/eTransmitting on: 06/20/2024 12:19 PM EST History and Physical [...]
[2025-04-19 10:19] LABS: Prothrombin Time Whole Bld POC 29.3 sec (11.1-13.5); ~PT, ~INR - Anti Coag Clinic 2.4 (0.9-1.1)
--- NOTE | 2025-04-19 10:25 | MHC.OFFVISCO ---
Intake Intake Visit Reasons: Anticoagulation Allergies acetaminophen (Percocet) Allergy (Severe, Verified 04/19/25 10:14) ITCHY RASH oxycodone (Percocet) Allergy (Severe, Verified 04/19/25 10:14) Itching Penicillins (PENICILLINS) Allergy (Intermediate, Verified 04/19/25 10:14) itchy rash naproxen (NAPROXEN) Allergy (Unknown, Verified 04/19/25 10:14) STOMACH PAIN Medication List - Last Reconciled 04/19/25 by Cristine Giang, RN acetaminophen ER mg PO atorvastatin 80 mg PO DAILY bisacodyl 10 mg PO BEDTIME chlorhexidine gluconate 0.12% PO docusate sodium 100 mg PO BEDTIME fluoxetine 20 mg PO DAILY gabapentin 100 mg PO DAILY metformin 500 mg PO DAILY metoprolol tartrate 25 mg PO BID omeprazole 20 mg PO DAILY warfarin 4 mg See Protocol PO DAILY Nursing Note INR: 2.4 in therapeutic range of 2-3 Medications and supplements reviewed No changes in health, diet, medications, or supplements, Denies any signs and symptoms of bleeding or bruising or clotting. 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
--- OUTSIDE RECORDS SUMMARY | 2025-04-19 12:19 | XMS_ITS | Clinical Summary ---
Author Organization [employer] Address [address] [place] [address] Care Team Providers Care Clinic Mgr Name Role Phone Unavailable Primary Care Provider [...] patient's age to complete this topic Insurance [facility] MEDICAID STAND ADULT
--- OUTSIDE RECORDS SUMMARY | 2025-04-19 12:19 | XMS_ITS | Patient Health Record ---
[facility] Address [address] [place] [address] Care Team Providers Care Windows Systems Admin Name Role Phone Jose E Hubbard MD Primary Care Provider UnavailKhadar Payne Unavailable [phone] Allergies Allergen (clinical drug ingredient) Drug/Non Drug [...] Omeprazole 20 MG take 1 capsule by [facility] twice a day 30 MINUTES PRIOR TO BREAKFAST AND SUPPER Oral; Duration: 30 Active Vitamin D3 400 units once daily Active Social History Tobacco use other than smoking: Question Answer Notes Are you an other tobacco user? No Problems Problem Type SNOMED Code ICD Code Onset Dates Problem Status W/U Status Risk Notes Problem Arthralgia (39433189) Arthralgia (719.40) Active confirmed Problem Disorder of joint of ankle and/or foot (304527050) Arthritis - Degenerative (719.97) Active confirmed Problem Hammer toe (791296777) Hammer toe (735.4) Active confirmed Problem Onychomycosis (428809731) Onychomycosis (110.1) Active confirmed Problem Pain in limb (79822978) Pain in Limb (729.5) Active confirmed Problem Tenosynovitis (42413736) Tenosynovitis (727.06) Active confirmed Problem Foot ulcer (43337258) Ulcer of Other Part of Foot (707.15) Active confirmed Plan Of Treatment Pending Test Test Name Order Date X ray : Foot, left 3V 12/28/2011 64762- Debride <25 sq cm 08/17/2013 Insurance Providers Payer Name Payer Address Payer Phone Subscriber Number Group Number Insured Name Patient Relationship to Insured Coverage Start Date Coverage End Date [facility] [address] [place] [address] [id number] GAYLA AIKEN Self - patient is the insured Medical (General) History Medical History History ICD Code fibromyalgia Reflux Surgical History Surgery Date(Month/Year) foot surgery 2008 hand/wrist 2007
--- OUTSIDE RECORDS SUMMARY | 2025-04-19 12:20 | XMS_ITS | Patient Health Record ---
Author Organization Jose E Hubbard III, MD Address [address] [place] [address] [place] [address] Care Team Providers Care Edge Grinder Machine Name Role Phone Dr. Jose E Hubbard III Primary Care Provider [phone] Allergies Allergen (clinical drug ingredient) Drug/Non Drug Allergy documented on EMR Reaction Allergy Type Onset Date Status acetaminophen / oxycodone Percocet Unknown Drug Allergy Active miconazole Monistat 3 burning Drug Allergy Activ e Results Component Value Reference Range Notes INR WHOLE BLOOD POC Reviewed date:05/12/2024 04:18:48 PM Interpretation: Performing Lab:[facility], [address] [place] [phone] Notes/Report: PT, INR - [facility] 1.9 0.9-1.1 METER #: [id number] INTERNATIONAL NORMALIZED RATIO (INR) REFERENCE RANGES Reference [...] OC Reviewed date:05/12/2024 04:18:48 PM Interpretation: Performing Lab:[facility], [address] [place] [phone] Notes/Report: Prothrombin Time Whole Bld POC 23.3 11.1-13.5 sec INR WHOLE BLOOD POC Reviewed date:05/29/2024 10:54:12 AM Interpretation: Performing Lab:[facility], [address] [place] [phone] Notes/Report: PT, INR - [facility] 2.4 0.9-1.1 METER #: [id number] INTERNATIONAL NORMALIZED RATIO (INR) REFERENCE RANGES Reference [...] OC Reviewed date:05/29/2024 10:54:12 AM Interpretation: Performing Lab:[facility], [address] [place] [phone] Notes/Report: Prothrombin Time Whole Bld POC 29.1 11.1-13.5 sec INR WHOLE BLOOD POC Reviewed date:06/19/2024 06:09:47 PM Interpretation: Performing Lab:[facility], [address] [place] [phone] Notes/Report: PT, INR - [facility] 2.2 0.9-1.1 METER #: [id number] INTERNATIONAL NORMALIZED RATIO (INR) REFERENCE RANGES Reference [...] OC Reviewed date:06/19/2024 06:09:47 PM Interpretation: Performing Lab:[facility], [address] [place] [phone] Notes/Report: Prothrombin Time Whole Bld POC 26.9 11.1-13.5 sec INR WHOLE BLOOD POC Reviewed date:06/28/2024 09:04:14 AM Interpretation: Performing Lab:[facility], [address] [place] [phone] Notes/Report: PT, INR - [facility] 2.6 0.9-1.1 METER #: [id number] INTERNATIONAL NORMALIZED RATIO (INR) REFERENCE RANGES Reference [...] OC Reviewed date:06/28/2024 09:04:14 AM Interpretation: Performing Lab:[facility], [address] [place] [phone] Notes/Report: Prothrombin Time Whole Bld POC 31.7 11.1-13.5 sec INR WHOLE BLOOD POC Reviewed date:08/01/2024 12:17:16 PM Interpretation: Performing Lab:[facility], [address] [place] [phone] Notes/Report: PT, INR - [facility] 2.0 0.9-1.1 METER #: [id number] INTERNATIONAL NORMALIZED RATIO (INR) REFERENCE RANGES Reference [...] OC Reviewed date:08/01/2024 12:17:17 PM Interpretation: Performing Lab:[facility], [address] [place] [phone] Notes/Report: Prothrombin Time Whole Bld POC 24.5 11.1-13.5 sec INR WHOLE BLOOD POC Reviewed date:08/01/2024 12:17:16 PM Interpretation: Performing Lab:[facility], [address] [place] [phone] Notes/Report: PT, INR - [facility] 1.7 0.9-1.1 METER #: [id number] INTERNATIONAL NORMALIZED RATIO (INR) REFERENCE RANGES Reference [...] OC Reviewed date:08/01/2024 12:17:16 PM Interpretation: Performing Lab:[facility], [address] [place] [phone] Notes/Report: Prothrombin Time Whole Bld POC 20.4 11.1-13.5 sec INR WHOLE BLOOD POC Reviewed date:08/07/2024 10:48:30 AM Interpretation: Performing Lab:[facility], [address] [place] [phone] Notes/Report: PT, INR - [facility] 2.5 0.9-1.1 METER #: [id number] INTERNATIONAL NORMALIZED RATIO (INR) REFERENCE RANGES Reference [...] OC Reviewed date:08/07/2024 10:48:30 AM Interpretation: Performing Lab:[address] [phone] Notes/Report: Prothrombin Time Whole Bld POC 29.5 11.1-13.5 sec INR WHOLE BLOOD POC Reviewed date:08/24/2024 08:14:12 PM Interpretation: Performing Lab:[address] [phone] Notes/Report: PT, INR - [facility] 2.8 0.9-1.1 METER #: [id number] INTERNATIONAL NORMALIZED RATIO (INR) REFERENCE RANGES Reference [...] OC Reviewed date:08/24/2024 08:14:12 PM Interpretation: Performing Lab:[facility], [address] [place] [phone] Notes/Report: Prothrombin Time Whole Bld POC 33.4 11.1-13.5 sec INR WHOLE BLOOD POC Reviewed date:09/13/2024 03:54:56 PM Interpretation: Performing Lab:[facility], [address] [place] [phone] Notes/Report: PT, INR - [facility] 4.5 0.9-1.1 METER #: [id number] INTERNATIONAL NORMALIZED RATIO (INR) REFERENCE RANGES Reference [...] OC Reviewed date:09/13/2024 03:54:56 PM Interpretation: Performing Lab:[facility], [address] [place] [phone] Notes/Report: Prothrombin Time Whole Bld POC 53.6 11.1-13.5 sec INR WHOLE BLOOD POC Reviewed date:09/13/2024 03:54:56 PM Interpretation: Performing Lab:[facility], [address] [place] [phone] Notes/Report: PT, INR - [facility] 3.0 0.9-1.1 METER #: [id number] INTERNATIONAL NORMALIZED RATIO (INR) REFERENCE RANGES Reference [...] OC Reviewed date:09/13/2024 03:54:56 PM Interpretation: Performing Lab:[facility], [address] [place] [phone] Notes/Report: Prothrombin Time Whole Bld POC 36.2 11.1-13.5 sec INR WHOLE BLOOD POC Reviewed date:09/27/2024 11:28:44 AM Interpretation: Performing Lab:[facility], [address] [place] [phone] Notes/Report: PT, INR - [facility] 3.2 0.9-1.1 METER #: [id number] INTERNATIONAL NORMALIZED RATIO (INR) REFERENCE RANGES Reference [...] OC Reviewed date:09/27/2024 11:28:44 AM Interpretation: Performing Lab:[facility], [address] [place] [phone] Notes/Report: Prothrombin Time Whole Bld POC 38.7 11.1-13.5 sec Complete Blood Count Auto Di ff Reviewed date:10/05/2024 05:27:32 AM Interpretation: Performing Lab:[facility], [address] [place] [phone] Notes/Report: White Blood Count 7.6 4.8-10.8 X10*3/uL [...] NRBC Abs Auto 0.000 0.0-0.012 X10*3/uL Comprehensive Ulysses. Panel Fa st Reviewed date:10/05/2024 05:27:32 AM Interpretation: Performing Lab:[facility], [address] [place] [phone] Notes/Report: Sodium 144 135-145 mmol/L Potassium 4.2 [...] Panel Reviewed date:10/05/2024 05:27:32 AM Interpretation: Performing Lab:[address] [phone] Notes/Report: Triglycerides 61 <150 mg/dL Desirable Triglyceride: [...] Random Reviewed date:10/05/2024 05:27:32 AM Interpretation: Performing Lab:[facility], [address] [place] [phone] Notes/Report: Creatinine Urine 132.65 Microalbumin Urine 13.0 Microalbum/Creatinine Ratio Ur 9.8 <30 ug/mg cr Albumin/Creatinine Ratio Reference Ranges: Normal: < 30 ug/mg creatinine Microalbuminuria: 30 - 300 ug/mg creatinine Clinical Albuminuria: > 300 ug/mg creatinine INR WHOLE BLOOD POC Reviewed date:10/05/2024 05:27:32 AM Interpretation: Performing Lab:[facility], [address] [place] [phone] Notes/Report: PT, INR - [facility] 3.2 0.9-1.1 METER #: [id number] INTERNATIONAL NORMALIZED RATIO (INR) REFERENCE RANGES Reference [...] OC Reviewed date:10/05/2024 05:27:32 AM Interpretation: Performing Lab:[facility], [address] [place] [phone] Notes/Report: Prothrombin Time Whole Bld POC 38.7 11.1-13.5 sec Hemoglobin A1c Reviewed date:10/05/2024 05:27:32 AM Interpretation: Performing Lab:[facility], [address] [place] [phone] Notes/Report: Hemoglobin A1c % 7.3 <6.0 % [...] average glucose, using the formula of the [id number] Average Glucose study (ADAG), Diabetes Care, Vol.31,#8, 2007 INR WHOLE BLOOD POC Reviewed date:10/20/2024 01:43:10 PM Interpretation: Performing Lab:[facility], [address] [place] [phone] Notes/Report: PT, INR - [facility] 3.5 0.9-1.1 METER #: [id number] INTERNATIONAL NORMALIZED RATIO (INR) REFERENCE RANGES Reference [...] OC Reviewed date:10/20/2024 01:43:10 PM Interpretation: Performing Lab:[facility], [address] [place] [phone] Notes/Report: Prothrombin Time Whole Bld POC 42.2 11.1-13.5 sec INR WHOLE BLOOD POC Reviewed date:11/01/2024 11:06:36 AM Interpretation: Performing Lab:[facility], [address] [place] [phone] Notes/Report: PT, INR - [facility] 2.3 0.9-1.1 METER #: [id number] INTERNATIONAL NORMALIZED RATIO (INR) REFERENCE RANGES Reference [...] OC Reviewed date:11/01/2024 11:06:36 AM Interpretation: Performing Lab:[facility], [address] [place] [phone] Notes/Report: Prothrombin Time Whole Bld POC 27.6 11.1-13.5 sec INR WHOLE BLOOD POC Reviewed date:11/22/2024 01:44:56 PM Interpretation: Performing Lab:[facility], [address] [place] [phone] Notes/Report: PT, INR - [facility] 2.0 0.9-1.1 METER #: [id number] INTERNATIONAL NORMALIZED RATIO (INR) REFERENCE RANGES Reference [...] OC Reviewed date:11/22/2024 01:44:56 PM Interpretation: Performing Lab:[facility], [address] [place] [phone] Notes/Report: Prothrombin Time Whole Bld POC 24.0 11.1-13.5 sec INR WHOLE BLOOD POC Reviewed date:12/20/2024 12:42:36 PM Interpretation: Performing Lab:[facility], [address] [place] [phone] Notes/Report: PT, INR - [facility] 3.3 0.9-1.1 METER #: [id number] INTERNATIONAL NORMALIZED RATIO (INR) REFERENCE RANGES Reference [...] OC Reviewed date:12/20/2024 12:42:36 PM Interpretation: Performing Lab:[facility], [address] [place] [phone] Notes/Report: Prothrombin Time Whole Bld POC 39.7 11.1-13.5 sec INR WHOLE BLOOD POC Reviewed date:01/07/2025 05:06:41 AM Interpretation: Performing Lab:[facility], [address] [place] [phone] Notes/Report: PT, INR - [facility] 3.0 0.9-1.1 METER #: [id number] INTERNATIONAL NORMALIZED RATIO (INR) REFERENCE RANGES Reference [...] OC Reviewed date:01/07/2025 05:06:41 AM Interpretation: Performing Lab:[facility], [address] [place] [phone] Notes/Report: Prothrombin Time Whole Bld POC 35.8 11.1-13.5 sec INR WHOLE BLOOD POC Reviewed date:01/18/2025 11:11:48 AM Interpretation: Performing Lab:[facility], [address] [place] [phone] Notes/Report: PT, INR - [facility] 2.1 0.9-1.1 METER #: [id number] INTERNATIONAL NORMALIZED RATIO (INR) REFERENCE RANGES Reference [...] OC Reviewed date:01/18/2025 11:11:48 AM Interpretation: Performing Lab:[facility], [address] [place] [phone] Notes/Report: Prothrombin Time Whole Bld POC 25.2 11.1-13.5 sec INR WHOLE BLOOD POC Reviewed date:02/04/2025 01:20:27 PM Interpretation: Performing Lab:[facility], [address] [place] [phone] Notes/Report: PT, INR - [facility] 3.5 0.9-1.1 METER #: [id number] INTERNATIONAL NORMALIZED RATIO (INR) REFERENCE RANGES Reference [...] OC Reviewed date:02/04/2025 01:20:27 PM Interpretation: Performing Lab:[facility], [address] [place] [phone] Notes/Report: Prothrombin Time Whole Bld POC 41.7 11.1-13.5 sec INR WHOLE BLOOD POC Reviewed date:02/09/2025 10:33:25 AM Interpretation: Performing Lab:[facility], [address] [place] [phone] Notes/Report: PT, INR - [facility] 3.0 0.9-1.1 METER #: [id number] INTERNATIONAL NORMALIZED RATIO (INR) REFERENCE RANGES Reference [...] OC Reviewed date:02/09/2025 10:33:25 AM Interpretation: Performing Lab:[facility], [address] [place] [phone] Notes/Report: Prothrombin Time Whole Bld POC 36.1 11.1-13.5 sec INR WHOLE BLOOD POC Reviewed date:03/07/2025 04:08:20 PM Interpretation: Performing Lab:[facility], [address] [place] [phone] Notes/Report: PT, INR - [facility] 2.2 0.9-1.1 METER #: [id number] INTERNATIONAL NORMALIZED RATIO (INR) REFERENCE RANGES Reference [...] OC Reviewed date:03/07/2025 04:08:20 PM Interpretation: Performing Lab:[facility] [address] [phone] Notes/Report: Prothrombin Time Whole Bld POC 26.4 11.1-13.5 sec INR WHOLE BLOOD POC Reviewed date:03/23/2025 05:24:34 AM Interpretation: Performing Lab:[facility], [address] [place] [phone] Notes/Report: PT, INR - [facility] 2.3 0.9-1.1 METER #: [id number] INTERNATIONAL NORMALIZED RATIO (INR) REFERENCE RANGES Reference [...] OC Reviewed date:03/23/2025 05:24:34 AM Interpretation: Performing Lab:[facility], [address] [place] [phone] Notes/Report: Prothrombin Time Whole Bld POC 27.3 11.1-13.5 sec INR WHOLE BLOOD POC Reviewed date:04/04/2025 02:31:59 PM Interpretation: Performing Lab:[facility], [address] [place] [phone] Notes/Report: PT, INR - [facility] 2.4 0.9-1.1 METER #: [id number] INTERNATIONAL NORMALIZED RATIO (INR) REFERENCE RANGES Reference [...] OC Reviewed date:04/04/2025 02:31:59 PM Interpretation: Performing Lab:[facility], [address] [place] [phone] Notes/Report: Prothrombin Time Whole Bld POC 28.6 11.1-13.5 sec INR WHOLE BLOOD POC (Not yet reviewed by provider) Interpretation: Performing Lab:[facility], [address] [place] [phone] Notes/Report: PT, INR - [facility]ag Clinic 2.4 0.9-1.1 METER #: [id number] INTERNATIONAL NORMALIZED RATIO (INR) REFERENCE RANGES Reference [...] (Not yet reviewed by provider) Interpretation: Performing Lab:[facility], [address] [place] [phone] Notes/Report: Prothrombin Time Whole Bld POC 29.3 11.1-13.5 sec Reason For Referral No Information Medications Medication SIG (Take, Route, Frequency, Duration) Notes Start Date End Date Status Docusate Sodium Acti ve diazePAM 5 MG 1 tablet if needed O rally every 4 hours 02/16/2025 Active Gabapentin 100 MG 1 capsule Orally Onc e a day Active Omeprazole 20 MG TAKE 1 CAPSULE 30 MD NUTES BEFORE MORNING MEAL ORALLY ONCE A [...] Problem Status W/U Status Risk Notes Problem 8344978 Former smoker (Z87.891) Active confirmed He is unable to obtain cigarettes. She does not smoke since his stroke. She says she does not want to. Problem 99901574 Fibromyalgia (M79.7) Active confirmed Fibromyalgia lately has been low-grade she lives with a without a great deal difficulty. No medical therapies necessary. Problem 084900099 Gastro-esophagea l reflux disease without esophagitis (K21.9) Active confirmed She will continue on omeprazole and liquid antacid as needed. Problem 51639509 Essential hypertension (I10) Active confirmed Low The most recent blood pressure was within normal limits and no change in her regimen was necessary. Problem 773918233 Anticoagulation adequate (Z79.01) Active confirmed She has had no bleeding and is compliant with her therapy. Problem CVA - Cerebrovascular accident (111689511) CVA (cerebral vascular accident) (I63.9) Active confirmed She is currently anticoagulated because of the stroke. She has a dense right hemiplegia, but no further neurological symptoms. She is awake and alert and responsive to questions. Her speech is fluent. Problem 774465951 Morbid obesity (E66.01) Active confirmed He discussed her overweight status. We discussed diet and nutrition. We made plans for her to lose weight at a rate of one half of a pound per week. Problem Right hemiplegia (183291684) Right hemiplegia (G81.91) Active confirmed There has been no change in the weakness of the right arm and leg. She remains confined to a wheelchair. The weakness in the right arm is dense. Problem 550528482 Type 2 diabetes mellitus without complication, without [...] Provider Diagnosis Jose E Hubbard III, MD [address] [place] [address] [place] [phone] 07/14/2024 Jose E Hubbard Essential hypertensi on I10 ; CVA (cerebral vascular accident) I63.9 ; Gastro-esophageal reflux disease without esophagitis K21.9 ; Anticoagulation adequate Z79.01 ; Former smoker Z87.891 ; Fibromyalgia M79.7 and Right hemiplegia G81.91 Jose E Hubbard III, MD [address] [place] [address] [place] [address] 10/11/2024 Jose E Hubbard Essential hypertensi on I10 ; CVA (cerebral vascular accident) I63.9 ; Fibromyalgia M79.7 ; Right hemiplegia G81.91 ; Former smoker Z87.891 ; Anticoagulation adequate Z79.01 ; Type 2 diabetes mellitus without complication, without long-term current use of insulin E11.9 and Obesity (BMI 30-39.9) E66.9 Jose E Hubbard III, MD [address] [place] [address] [place] [address] 10/30/2024 Jose E Hubbard Essential hypertensi on I10 ; Acute abdominal pain R10.9 ; Anticoagulation adequate Z79.01 ; CVA (cerebral vascular accident) I63.9 ; Gastro-esophageal reflux disease without esophagitis K21.9 ; Fibromyalgia M79.7 ; Type 2 diabetes mellitus without complication, without long-term current use of insulin E11.9 ; Right hemiplegia G81.91 and Former smoker Z87.891 Jose E Hubbard III, MD [address] [place] [address] [place] [address] 12/06/2024 Jose E Hubbard Essential hypertensi on [...] M79.7 Jose E Hubbard III, MD [address] [facility] [place] [address] 03/14/2025 Jose E Hubbard Essential hypertensi on I10 ; CVA (cerebral vascular accident) I63.9 ; Type 2 diabetes mellitus without complication, without long-term current use of insulin E11.9 ; Gastro-esophageal reflux disease without esophagitis K21.9 ; Fibromyalgia M79.7 ; Anticoagulation adequate Z79.01 ; Former smoker Z87.891 and Right hemiplegia G81.91 Jose E Hubbard III, MD [address] [facility] [place] [address] 07/25/2024 Jose E Hubbard III, MD [address] [facility] [place] [address] 07/25/2024 Jose E Hubbard III, MD [address] [place] [address] [place] [address] 09/20/2024 Jose E Hubbard Essential hypertensi on I10 Jose E Hubbard III, MD [address] [place] [address] [place] [address] 09/26/2024 Jose E Hubbard III, MD [address] [place] [address] [place] [address] 11/14/2024 Jose E Hubbard Essential hypertensi on I10 Jose E Hubbard III, MD [address] [place] [address] [place] [address] 02/05/2025 Jose E Hubbard Essential hypertensi on I10 Jose E Hubbard III, MD [address] [place] [address] [place] [address] 02/15/2025 Jose E Hubbard III, MD [address] [place] [address] [place] [address] 02/16/2025 Jose E Hubbard Assessments Encounter Date [...] US ABD 02/10/2022 US BREAST LEFT ([facility]) 03/08/20 17 CBC WITH AUTO DIFF 11/16/2023 CBC WITH AUTO DIFF 07/14/2024 CBC WITH AUTO DIFF 07/13/2023 CBC WITH AUTO DIFF 02/16/2024 Urinalysis 06/26/2020 Lipid Panel 11/10/2021 Lipid Panel 04/07/2023 Lipid Panel 11/16/2023 Lipid Panel 03/14/2025 Lipid Panel 12/06/2024 Lipid Panel 07/14/2024 Lipid Panel 07/13/2023 Lipid Panel 02/16/2024 Microalbumin, Random 07/14/2024 INR WHOLE BLOOD POC 04/19/2025 Prothrombin Time Whole Bld POC T Spot TB 08/04/2022 MM tomosynthesis screening BI 12/06/2024 US abdomen complete 07/08/2022 Hemoglobin A1c 03/14/2025 Hemoglobin A1c 12/06/2024 Hemoglobin A1c 07/14/2024 Next Appt Details Provider Name:Jose E Hubbard , 06/14/2025 09:45:00 AM, [address] [place] [address] MONI JASMINE, [place], [phone], Provider Name:Jose E Hubbard , 07/17/2025 10:00:00 AM, [address] [place] [address] MONI JASMINE, [place], [address], Insurance Providers Payer Name Payer Address Payer Phone Subscriber Number Group Number Insured Name Patient Relationship to Insured Coverage Start Date Coverage End Date MEDICARE NGS [address] [place] [phone] [id number] Malu Garcia Self - patient is the [...]
--- OUTSIDE RECORDS SUMMARY | 2025-04-19 12:20 | XMS_ITS | Clinical Summary ---
Author Organization [facility] ity Address [address] [place] [address] Care Team Providers Care General Internal Medicine Physician Name Role Phone Unavailable Primary Care Provider [...] Documents on File Type Date Recorded Patient Recreation Leader Expl anation Health Care Decision (hx) 07/20/2018 AD ALMA ROSA DIRECTIVE
== END 2025-04-19 10:28 | disposition home or self-care (01) ==
LOC: HO.ACS 10:14
PROVIDERS: PCP Internal Medicine Medical Oncology; Visit Provider Internal Medicine Medical Oncology
DX: Z79.01 Long term (current) use of anticoagulants (principal)

== ENCOUNTER → 2025-04-19 10:14 | Outpatient (BNVA) | payer MEDICARE, MEDICAID, SELFPAY | PROVIDERS: PCP Internal Medicine Medical Oncology; Visit Provider Internal Medicine Medical Oncology | DX: I69.30 Unspecified sequelae of cerebral infarction (principal); Z51.81 Encounter for therapeutic drug level monitoring; Z79.01 Long term (current) use of anticoagulants | CPT/HCPCS: 85610; 99211 ==

== ENCOUNTER 2025-05-02 10:00 | Outpatient (AMB) | payer MEDICARE, MEDICAID, SELFPAY ==
--- OUTSIDE RECORDS SUMMARY | 2024-09-26 04:54 | XMS_ITS ---
Author Organization Jose E Hubbard III, MD Address [address] [place] [address] [place] [address] Care Team Providers Care Waterproof Material Folder Name Role Phone Dr. Jose E Hubbard [...] Provider Diagnosis Jose E Hubbard III, MD [address] [place] [address] [place] [address] 09/26/2024 Jose E Hubbard Plan Of Treatment Medication Medication Name Sig Start Date Stop Date Notes Atorvastatin Calcium 80 MG 1 tablet Oral ly Once a day for 90 days Next Appt Details Provider Name:Jose E Hubbard , 06/14/2025 09:45:00 AM, [address] [place] [address] [place], [address], Provider Name:Jose E Hubbard , 07/17/2025 10:00:00 AM, [address] [place] [address] [place], [address], Progress Notes * Malu GARCIADOB:1955 ([age] yo F)Acc No.[id number]:09/26/2024 Patient: Malu BOJORQUEZ :1955 A ge:68 Y S ex:Female Address:[address] [place] [address] [place] [address] * Refills Refill Atorvastatin Calcium Tablet, 80 MG, Orally, 90 Tablet, 1 tablet, Once a day, 90 days, Refills=3 * true * Date: Generated for Michael junior/Kiko/Petra on: 07/03/2024 12:08 PM EST
--- OUTSIDE RECORDS SUMMARY | 2024-10-11 05:00 | XMS_ITS ---
Author Organization Jose E Hubbard III, MD Address [address] [place] [address] [address] [place] [address] Care Team Providers Care Badger Distiller Operator Name Role Phone Dr. Jose E [...] Provider Diagnosis Jose E Hubbard III, MD [address] [place] [address] [facility] [address] 10/11/2024 Jose E Hubbard Essential hypertensi on [...] Name:Jose E Hubbard , 06/14/2025 09:45:00 AM, [address] [place] [address] [address], [place], [address], Provider Name:Jose E Hubbard , 07/17/2025 10:00:00 AM, [address] [place] [address] [address], [place], [address], Progress Notes * Malu GARCIADOB:1955 ([age] yo F)Acc No.[id number]:10/11/2024 Progress Notes Patient: Malu BOJORQUEZ Provider: Una Hubbard MD :1955 A ge:68 Y S ex:Female Date:10/11/2024 Address:[address] [place] [address] FERNIE Wenceslao [id number] Subjective: * Chief Complaints: * H ypertensionHistory [...] History: * Surgical History: N egative colonoscopy, [facility], Dr. York 03/2022 * Hospitalization/Major Diagno [...] E x-cigarette smoker S he lives in [place]. She was born in [place]. She has been since 1997 and [...] 10/11/2024 Generated for Jerii ng/Ladonnag/eTransmitting on: 1 07/03/2024 12:09 PM EST History and Physical Notes * [...]
--- OUTSIDE RECORDS SUMMARY | 2024-10-30 08:30 | XMS_ITS ---
Author Organization Jose E Hubbard III, MD Address [address] [place] [address] [address] [place] [address] Care Team Providers Care Handicapper Harness Racing Name Role Phone Dr. Jose E Hubbard III Primary Care Provider [phone] Allergies Allergen (clinical drug ingredient) Drug/Non Drug Allergy documented on EMR Reaction Allergy Type Onset Date Status acetaminophen / oxycodone Percocet Unknown Drug Allergy Active miconazole Monistat 3 burning Drug Allergy Activ e REASON FOR VISIT Abdominal discomfort, Hypertension, History stroke, Anticoagulated, Right hemiplegia, Morbid obesity, Diabetes Medications Medication SIG (Take, Route, Frequency, Duration) Notes Start Date End Date Status FLUoxetine HCl 20 MG 1 capsule Orally On ce a day Active Metoprolol Tartrate 25 MG 1 tablet with food Orally Twice a day Active metFORMIN HCl 500 MG 1 tablet Orally Onc e a day 07/25/2024 Active Warfarin Sodium 4 MG as directed Orally Once a day Active Docusate Sodium Acti ve Atorvastatin Calcium 80 MG 1 tablet Oral ly Once a day Active Cephalexin 500 MG 1 capsule Orally ghassan ry 6 hrs for 7 days 10/30/2024 11/06/2024 Active Gabapentin 100 MG 1 capsule Orally Onc e a day Active Omeprazole 20 MG 1 capsule 30 minutes before morning meal Orally Once a day Active diazePAM 5 MG 1 tablet Orally ever y 4 hours for anxiety 01/12/2023 Active Social History Tobacco Use: Social History Observation Description Date Details (start date - stop date) Former Smoker NA - NA Sex Assigned At : Social History Observation Description Sex Assigned At Female Tobacco Use/Smoking Question Answer Notes Patient is a former smoker How long has it been since you last smoked? > 10 years Additional Findings: Tobacco Non-User Ex-cigaret te smoker Encounters Encounter Location Date Provider Diagnosis Jose E Hubbard III, MD [address] [place] [address] [address], [place] [address] 10/30/2024 Jose E Hubbard Essential hypertensi on I10 ; Acute abdominal pain R10.9 ; Anticoagulation adequate Z79.01 ; CVA (cerebral vascular accident) I63.9 ; Gastro-esophageal reflux disease without esophagitis K21.9 ; Fibromyalgia M79.7 ; Type 2 diabetes mellitus without complication, without long-term current use of insulin E11.9 ; Right hemiplegia G81.91 and Former smoker Z87.891 Assessments Encounter Date Diagnosis (ICD Code) Assessment Notes Treat ment Notes Treatment Clinical Notes 10/30/2024 Essential hypertension (ICD-10 - I10) The most recent blood pressure was 126/77 and no change in her regimen was necessary. 10/30/2024 Acute abdominal pain (ICD-10 - R10.9) Pain is mild and has been present for only 24 hours. She is able to eat and drink. She has had no nausea vomiting or diarrhea. If she worsens she'll return to the emergency room. I began an antibiotic. 10/30/2024 Anticoagulation adequate (ICD-10 - Z79.01) She has had no bleeding and is compliant with her therapy. 10/30/2024 CVA (cerebral vascular accident) (ICD-10 - I63.9) She is currently anticoagulated because of the stroke. She has a dense right hemiplegia, but no further neurological symptoms. She is awake and alert and responsive to questions. Her speech is fluent. 10/30/2024 Gastro-esophageal reflux disease without esophagitis (ICD-10 - K21.9) She will continue on omeprazole and liquid antacid as needed. 10/30/2024 Fibromyalgia (ICD-10 - M79.7) Fibromyalgia lately has been low-grade she lives with a without a great deal difficulty. No medical therapies necessary. 10/30/2024 Type 2 diabetes mellitus without complication, without long-term current use of insulin (ICD-10 - E11.9) I have ordered comprehensive blood work with a hemoglobin A1c fasting glucose lipid profile and microalbumin. No change in her medications was made. 10/30/2024 Right hemiplegia (ICD-10 - G81.91) There has been no change in the weakness of the right arm and leg. She remains confined to a wheelchair. The weakness in the right arm is dense. 10/30/2024 Former smoker (ICD-1 0 - Z87.891) He is unable to obtain cigarettes. She does not smoke since his stroke. She says she does not want to. Plan Of Treatment Medication Medication Name Sig Start Date Stop Date Notes FLUoxetine HCl 20 MG 1 capsule Orally Once a day Metoprolol Tartrate 25 MG 1 tablet with food Orally Twice a day metFORMIN HCl 500 MG 1 tablet Orally Once a day 07/25/2024 Warfarin Sodium 4 MG as directed Orally Once a day Docusate Sodium Atorvastatin Calcium 80 MG 1 tablet Orally Once a day Cephalexin 500 MG 1 capsule Orally ghassan ry 6 hrs for 7 days 10/30/2024 11/06/2024 Gabapentin 100 MG 1 capsule Orally Once a day Omeprazole 20 MG 1 capsule 30 minutes before morning meal Orally Once a day diazePAM 5 MG 1 tablet Orally ever y 4 hours for anxiety 01/12/2023 Next Appt Details Follow Up: As Scheduled, Sabra son: OV Provider Name:Jose E Hubbard , 06/14/2025 09:45:00 AM, [address] [place] [address] [address], [place], [address], Provider Name:Jose E Hubbard , 07/17/2025 10:00:00 AM, [address] [place] [address] [address], [place], [address], Progress Notes * Malu GARCIADOB:1955 ([age] yo F)Acc No.[id number]:10/30/2024 Patient: Malu BOJORQUEZ Provider: Una Hubbard MD :1955 A ge:69 Y S ex:Female Date:10/30/2024 Address:[address] [place] [address] YEN Billy [id number] Subjective: * Chief Complaints: * A bdominal discomfortHypertensionHistory strokeAnticoagulatedRight hemiplegiaMorbid obesityDiabetes * HPI: * : T his telehealth visit took place over 15 minutes with the patient at home and me in my office. He gave consent for billing. It was conducted with her son who takes care of her. Over the last 24 hours she has had some left lower quadrant abdominal pain and back pain which is steady but not intermittent. Urinary and bowel function of continued unchanged and seem to be normal. She has had no vomiting. She is able to eat. She has no fevers or chills.? Because of the possibility of diverticulitis she was given ciprofloxacin. A telephone call every day will be made. If necessary she will come to the office to the emergency room. Telehealth L ocation of provider rendering services: { ...} [address] [facility] [address] L ocation of patient: mac barajas listed in demographics for today's visit P atient identification confirmed using: JANNIE Frank ame elehealth method: T elephone only. Patient not visible to care provider. C onsent: P atient verbally consented to treatment, Patient verbally consented to billing insurance company, Patient informed of any privacy concerns related to method of visit T otal time spent with patient (mins) 1 5 * ROS: G eneral/Constitutional: pain L eft lower quadrant abdominal pain with left lower back pain. C hills d enies. F atigue a dmits. F ever d enies. E NT: Decreased hearing d enies. R espiratory: Cough d enies. C ardiovascular: Chest pain with exertion d enies. D yspnea on exertion?denies. S hortness of breath d enies. G astrointestinal: Constipation o ccasional. D ecreased appetite d enies. D iarrhea d enies. H eartburn d enies. N ausea d enies. R ectal bleeding d enies. V omiting d enies. H ematology: bruising d enies. p etechiae d enies. S wollen glands n one have been noted. G enitourinary: Frequent urination a t night. M usculoskeletal: Muscle aches d enies. P ainful joints d enies. S ciatica d enies. W eakness d enies. S kin: Itching d enies. R henry d enies. S kin lesion(s)?denies. N eurologic: Difficulty speaking A phasic. D izziness d enies.?Headache d enies. L ow back pain d enies. P sychiatric: Depressed mood d enies. * Medical History: * Surgical History: N egative colonoscopy, [facility], Dr. York 03/2022 * Hospitalization/Major Diagno stic [...] E x-cigarette smoker S he lives in [place]. She was born in [place], [place]. She has been since 1997 and has 1 child. * Medications: T akingAtorvastatin Calcium 80 MG Tablet 1 tablet Orally Once a day FLUoxetine HCl 20 MG Capsule 1 capsule Orally Once a day Metoprolol Tartrate 25 MG Tablet 1 tablet with food Orally Twice a day metFORMIN HCl 500 MG Tablet 1 tablet Orally Once a day Warfarin Sodium 4 MG Tablet [...] with food Orally Twice a day Taking metFORMIN HCl 500 MG Tablet 1 tablet Orally Once a day Taking Warfarin Sodium 4 MG [...] ercocetMonistat 3: burningno[Allergies Verified] Objective: * Vitals: Assessment: * Assessment: 1. A cute abdominal pain - R10.9 (Primary) N otes :Pain is mild and has been present for only 24 hours. She is able to eat and drink. She has had no nausea vomiting or diarrhea. If she worsens she'll return to the emergency room. I began an antibiotic. 2 . E ssential hypertension - I10 N otes :The most recent blood pressure was 126/77 and no change in her regimen was necessary. 3 . A nticoagulation adequate - Z79.01 N otes :She has had no bleeding and is compliant with her therapy. 4 . C VA (cerebral vascular accident) - I63.9 N otes :She is currently anticoagulated because of the stroke. She has a dense right hemiplegia, but no further neurological symptoms. She is awake and alert and responsive to questions. Her speech is fluent. 5 . G timothy-esophageal reflux disease without esophagitis - K21.9 ?Notes :She will continue on omeprazole and liquid antacid as needed. 6 . F ibromyalgia - M79.7 N otes :Fibromyalgia lately has been low-grade she lives with a without a great deal difficulty. No medical therapies necessary. 7 . T ype 2 diabetes mellitus without complication, without long-term current use of insulin - E11.9 N otes :I have ordered comprehensive blood work with a hemoglobin A1c fasting glucose lipid profile and microalbumin. No change in her medications was made. 8 . R ight hemiplegia - G81.91 N otes :There has been no change in the weakness of the right arm and leg. She remains confined to a wheelchair. The weakness in the right arm is dense. 9 . F ormer smoker - Z87.891 N otes :He is unable to obtain cigarettes. She does not smoke since his stroke. She says she does not want to. Plan: * Treatment: 2. O thers Continue [...] 4 hours for anxiety. * Procedure Codes: 9 8012 SYNCH AUDIO-ONLY EST SF 10 * Preventive Medicine: Counseling: C are goal follow-up plan: Counseling for abnormal BMI given Y es Above Normal BMI Follow-up D ietary management education, guidance, and counseling S moking/Tobacco Use Patient counseled on the dangers of tobacco use and urged to quit. 0 10/31/2024 * Follow Up: A s Scheduled (Reason: OV) * Images: * Sign off status: Completed true * Provider: Una Hubbard MD Date: 0 10/30/2024 Generated for Michael junior/Kiko/Eugenieitting on: 1 07/03/2024 12:07 PM EST History and Physical Notes * HPI (History of Present Illness) Category Sub-Category Detail Notes Telehealth [facility] of [facility]:: {...} [address] [place], [place] [id number] Location of patient:: address listed in demographics for today's visit Patient identification confirmed using:: Name, Telehealth method:: Telephone only. Faustina ent not visible to care provider. Consent:: Patient verbally c onsented to treatment, Patient verbally consented to billing insurance company, Patient informed of any privacy concerns related to method of visit Total time spent with patient (mins): 15
--- OUTSIDE RECORDS SUMMARY | 2024-11-14 04:22 | XMS_ITS ---
Author Organization Jose E Hubbard III, MD Address [address] [place] [address] [place] [address] Care Team Providers Care Bark Peeler Name Role Phone Dr. Jose E Hubbard [...] Diagnosis Jose E Hubbard III, MD [address] [place] [address] [place] [address] 11/14/2024 Jose E Hubbard Essential hypertensi on [...] Name:Jose E Hubbard , 06/14/2025 09:45:00 AM, [address] [place] [address] [place], [address], Provider Name:Jose E Hubbard , 07/17/2025 10:00:00 AM, [address] [place] [address] [place], [address], Progress Notes * Malu GARCIADOB:1955 ([age] yo F)Acc No.[id number]:11/14/2024 Patient: Malu BOJORQUEZ :1955 A ge:69 Y S ex:Female Address:[address] [place] [phone] * Refills Refill Warfarin Sodium Tablet, 4 MG, Orally, 90 Tablet, 1 tablet, Once a day, 90 days, Refills=3 * true * Date: Generated for Michael junior/Kiko/Eugenieitting on: 1 07/03/2024 12:07 PM EST
--- OUTSIDE RECORDS SUMMARY | 2024-12-06 05:00 | XMS_ITS ---
Author Organization Jose E Hubbard III, MD Address [address] [place] [address] [address] [place] [address] Care Team Providers Care Chainstitch Tunnel Elastic Operator Name Role Phone Dr. Jose E [...] Provider Diagnosis Jose E Hubbard III, MD [address] [place] [address] [place] [address] 12/06/2024 Jose E Hubbard Essential hypertensi on [...] Name:Jose E Hubbard , 06/14/2025 09:45:00 AM, [address] [place] [address] [address], [place], [address], Provider Name:Jose E Hubbard , 07/17/2025 10:00:00 AM, [address] [place] [address] [address], [place], [address], Progress Notes * Elmer GARCIA:1955 ([age] yo F)Acc No.[id number]:12/06/2024 Progress Notes Patient: Malu BOJORQUEZ Provider: Una Hubbard MD :1955 A ge:69 Y S ex:Female Date:12/06/2024 Address:[address] [place], [place] [phone] Subjective: * Chief Complaints: * H [...] History: * Surgical History: N egative colonoscopy, [facility], Dr. York 03/2022 * Hospitalization/Major Diagno stic [...] E x-cigarette smoker S he lives in [place]. She was born in [place]. She has been since 1997 and [...] mg/dL) 166 (Ref Range: mg/dL) * Lab:[facility]prehensive [place]. Pane l Fast * Collection Date 10/04/2024 [...] 0 12/06/2024 Generated for Michael junior/Kiko/Eugenieitting on: 07/03/2024 12:08 PM EST History and Physical Notes [...]
--- OUTSIDE RECORDS SUMMARY | 2025-02-05 08:20 | XMS_ITS ---
Author Organization Jose E Hubbard III, MD Address [address] [place] [address] [place] [address] Care Team Providers Care Roll On Man Name Role Phone Dr. Jose E Hubbard [...] Diagnosis Jose E Hubbard III, MD [address] [place] [address] [place] [address] 02/05/2025 oJse E Hubbard Essential hypertensi on I10 Assessments [...] Name:Jose E Hubbard , 06/14/2025 09:45:00 AM, [address] [place] [address] [place], [address], Provider Name:Jose E Hubbard , 07/17/2025 10:00:00 AM, [address] [place] [address] [place], [address], Progress Notes * Elmer GARCIA:1955 ([age] yo F)Acc No.[id number]:02/05/2025 Patient: Malu BOJORQUEZ :1955 A ge:69 Y S ex:Female Address:[address] [place] [phone] * Refills Refill Gabapentin Capsule, 100 MG, Orally, 90, 1 capsule, Once a day, 90 days, Refills=3 * true * Date: Generated for Michael junior/Kiko/Vonsmitting on: 07/03/2024 12:08 PM EST
--- OUTSIDE RECORDS SUMMARY | 2025-02-15 06:47 | XMS_ITS ---
Author Organization Jose E Hubbard III, MD Address [address] [place] [address] [place] [address] Care Team Providers Care Porcelain Enameler Name Role Phone Dr. Jose E Hubbard III Primary Care Provider REASON FOR VISIT Rx Request Social History Sex Assigned At : Social History Observation Description Sex Assigned At Female Encounters Encounter Location Date Provider Diagnosis Jose E Hubbard III, MD [address] [place] [address] [place] [address] 02/15/2025 Jose E Hubbard Plan Of Treatment Next Appt Details Provider Name:Jose E Hubbard , 06/14/2025 09:45:00 AM, [address] [place] [address] [place], [address], Provider Name:Jose E Hubbard , 07/17/2025 10:00:00 AM, [address] [place] [address] [place], [address], Progress Notes * Malu GARCIADOB:1955 ([age] yo F)Acc No.[id number]:02/15/2025 Patient: Malu BOJORQUEZ :1955 A ge:69 Y S ex:Female Address:[address] [place] [address] * true * Date: Generated for Printi ng/Faxing/eTransmitting on: 1 07/03/2024 12:08 PM EST
--- OUTSIDE RECORDS SUMMARY | 2025-02-16 06:50 | XMS_ITS ---
Author Organization Jose E Hubbard III, MD Address [address] [place] [address] [place] [address] Care Team Providers Care Capacity Planning Analyst Name Role Phone Dr. Jose E Hubbard [...] Diagnosis Jose E Hubbard III, MD [address] [place] [address] [place] [address] 02/16/2025 Jose E Hubbard Plan Of Treatment Medication Medication Name Sig Start Date Stop Date Notes diazePAM 5 MG 1 tablet if needed O rally every 4 hours for 1 days 02/16/2025 Next Appt Details Provider Name:Jose E Hubbard , 06/14/2025 09:45:00 AM, [address] [place] [address] [place], [address], Provider Name:Jose E Hubbard , 07/17/2025 10:00:00 AM, [address] [place] [address] [place], [address], Progress Notes * Malu GARCIADOB:1955 ([age] yo F)Acc No.[id number]:02/16/2025 Patient: Florecita SANTOSH Malu :1955 A ge:69 Y S ex:Female Address:[address] [place] [address] [facility] [place] [address] * Refills Start diazePAM Tablet, 5 MG, Orally, 2 Tablets, 1 tablet if needed, every 4 hours, 1 days, Refills=0 * true * Date: Generated for Michael junior/Kiko/Petra on: 07/03/2024 12:09 PM EST
--- OUTSIDE RECORDS SUMMARY | 2025-03-12 12:00 | XMS_ITS ---
Author Organization Jose E Hubbard III, MD Address [address] [place] [address] [place] [address] Care Team Providers Care Tool Checker Name Role Phone Dr. Jose E Hubbard III Primary Care Provider REASON FOR VISIT Follow up Social History Sex Assigned At : Social History Observation Description Sex Assigned At Female Encounters Encounter Location Date Provider Diagnosis Jose E Hubbard III, MD [address] [place] [address] [place] [address] 03/12/2025 Jose E Hubbard Plan Of Treatment Next Appt Details Provider Name:Jose E Hubbard , 06/14/2025 09:45:00 AM, [address] [place] [address] [place], [address], Provider Name:Jose E Hubbard , 07/17/2025 10:00:00 AM, [address] [place] [address] [place], [address], Progress Notes * JOSE MaluDOB:1955 ([age] yo F)Acc No.[id number]:03/12/2025 Progress Notes Patient: Malu BOJORQUEZ Provider: Una Hubbard MD :1955 A ge:69 Y S ex:Female Date:03/12/2025 [facility] [facility] [phone] Subjective: * Chief Complaints: * 1 . [...] Date: 1 Generated for Michael junior/Kiko/Petra on: 07/03/2024 12:07 PM EST
--- OUTSIDE RECORDS SUMMARY | 2025-03-14 05:15 | XMS_ITS ---
Author Organization Jose E Hubbard III, MD Address [address] [place] [address] [address] [place] [address] Care Team Providers Care Elderly Caregiver Name Role Phone Dr. Jose E Hubbard III Primary Care Provider [phone] Allergies Allergen (clinical drug ingredient) Drug/Non Drug Allergy documented on EMR Reaction Allergy Type Onset Date Status acetaminophen / oxycodone Percocet Unknown Drug Allergy Active miconazole Monistat 3 burning Drug Allergy Activ e REASON FOR VISIT Hypertension, GERD, Left cerebral infarction, Right hemiparesis, obesity, Anticoagulated, Diabetes Medications Medication SIG (Take, Route, Frequency, Duration) Notes Start Date End Date Status diazePAM 5 MG 1 tablet if needed O rally every 4 hours 02/16/2025 Active Gabapentin 100 MG 1 capsule Orally Onc e a day Active Omeprazole 20 MG TAKE 1 CAPSULE 30 IN NUTES BEFORE MORNING MEAL ORALLY ONCE A DAY 90 DAYS Active Docusate Sodium Acti ve Atorvastatin Calcium 80 MG 1 tablet Oral ly Once a day Active FLUoxetine HCl 20 MG 1 capsule Orally On ce a day Active metFORMIN HCl 500 MG 1 tablet Orally Onc e a day 07/25/2024 Active Metoprolol Tartrate 25 MG 1 tablet with food Orally Twice a day Active Warfarin Sodium 4 MG 1 tablet Orally Onc e a day Active Social History Tobacco Use: [...] Non-User Ex-cigaret te smoker Vital Signs Temperature 98.6 degrees Fahrenheit 03/14/20 25 Blood pressure systolic 137 mm Hg 03/14/20 25 Blood pressure diastolic 74 mm Hg 025 Heart Rate 80 /min 03/14/2025 Height 58 in 03/14/2025 Weight 175 lbs 03/14/2025 BMI 36.57 kg/m2 03/14/2025 Encounters Encounter Location Date Provider Diagnosis Jose E Hubbard III, MD [address] [place] [address] [facility] [place] [address] 03/14/2025 Jose E Hubbard Essential hypertensi on I10 ; CVA (cerebral vascular accident) I63.9 ; Type 2 diabetes mellitus without complication, without long-term current use of insulin E11.9 ; Gastro-esophageal reflux disease without esophagitis K21.9 ; Fibromyalgia M79.7 ; Anticoagulation adequate Z79.01 ; Former smoker Z87.891 and Right hemiplegia G81.91 Assessments Encounter Date Diagnosis (ICD Code) Assessment Notes Treat ment Notes Treatment Clinical Notes 03/14/2025 Essential hypertension (ICD-10 - I10) The most recent blood pressure was within normal limits and no change in her regimen was necessary. 03/14/2025 CVA (cerebral vascular accident) (ICD-10 - I63.9) She is currently anticoagulated because of the stroke. She has a dense right hemiplegia, but no further neurological symptoms. She is awake and alert and responsive to questions. Her speech is fluent. 03/14/2025 Type 2 diabetes mellitus without complication, without long-term current use of insulin (ICD-10 - E11.9) Her brother who cares for her reports that she has been compliant with meals and with all of her medications. Comprehensive blood work with a microalbumin fasting glucose fasting lipids and hemoglobin A1c has been ordered. 03/14/2025 Gastro-esophageal reflux disease without esophagitis (ICD-10 - K21.9) She will continue on omeprazole and liquid antacid as needed. 03/14/2025 Fibromyalgia (ICD-10 - M79.7) Fibromyalgia lately has been low-grade she lives with a without a great deal difficulty. No medical therapies necessary. 03/14/2025 Anticoagulation adequate (ICD-10 - Z79.01) She has had no bleeding and is compliant with her therapy. 03/14/2025 Former smoker (ICD-1 0 - Z87.891) He is unable to obtain cigarettes. She does not smoke since his stroke. She says she does not want to. 03/14/2025 Right hemiplegia (ICD-10 - G81.91) There has been no change in the weakness of the right arm and leg. She remains confined to a wheelchair. The weakness in the right arm is dense. Plan Of Treatment Medication Medication Name Sig Start Date Stop Date Notes diazePAM 5 MG 1 tablet if needed O rally every 4 hours 02/16/2025 Gabapentin 100 MG 1 capsule Orally Once a day Omeprazole 20 MG TAKE 1 CAPSULE 30 IN NUTES BEFORE MORNING MEAL ORALLY ONCE A DAY 90 DAYS Docusate Sodium Atorvastatin Calcium 80 MG 1 tablet Orally Once a day FLUoxetine HCl 20 MG 1 capsule Orally Once a day metFORMIN HCl 500 MG 1 tablet Orally Once a day 07/25/2024 Metoprolol Tartrate 25 MG 1 tablet with food Orally Twice a day Warfarin Sodium 4 MG 1 tablet Orally Once a day Pending Test Test Name Order Date PROFILE, FASTING (COMPREHENSIVE METABOLI C) 03/14/2025 CBC w DIFF 03/14/2025 Lipid Panel 03/14/2025 Hemoglobin A1c 03/14/2025 Next Appt Details Follow Up: 3 Months, Reason: OV Provider Name:Jose E Hubbard , 06/14/2025 09:45:00 AM, [address] [place] [address] [address], [place], [address], Provider Name:Jose E Hubbard , 07/17/2025 10:00:00 AM, [address] [place] [address] [address], [place], [address], Progress Notes * Malu GARCIADOB:1955 ([age] yo F)Acc No.[id number]:03/14/2025 Progress Notes Patient: Malu BOJORQUEZ Provider: Una Hubbard MD :1955 A ge:69 Y S ex:Female Date:03/14/2025 Address:[address] [place] [address] [place] [phone] Subjective: * Chief Complaints: * H ypertensionGERDLeft cerebral infarctionRight hemiparesisObesityAnticoagulatedDiabetes * HPI: C OVID-19 Screening: She returns for medical management. She was awake and alert today but nonverbal. Was able to communicate. The right hemiparesthesias is unchanged. Her weight is stable. She is anticoagulated without bleeding. Her blood pressure was stable. Her esophageal reflux is been controlled. No change in her regimen was needed. Comprehensive blood work was ordered. Questions H ave you had any new onset fever, chills, cough, congestion, sore throat, shortness of breath, muscle aches? N o * ROS: G eneral/Constitutional: pain R ight shoulder. C hills d enies. F atigue?admits. F ever d enies. E NT: Decreased hearing d enies. R espiratory: Cough d enies. C ardiovascular: Chest pain with exertion d enies. D yspnea on exertion?denies. S hortness of breath d enies. G astrointestinal: Constipation d enies. D ecreased appetite d enies.?Diarrhea d enies. H eartburn o ccasional. N ausea d enies. R ectal bleeding d enies. V omiting d enies. H ematology: bruising d enies. p etechiae d enies. S wollen glands n one have been noted. G enitourinary: Frequent urination a t night. M usculoskeletal: Muscle aches d enies. P ainful joints R ight shoulder. S ciatica d enies. W eakness d enies. S kin: Itching d enies. R henry d enies. S kin lesion(s)?denies. N eurologic: Difficulty speaking d enies. D izziness d enies.?Headache d enies. L ow back pain d enies. P sychiatric: Depressed mood d enies. * Medical History: * Surgical History: N egative colonoscopy, [facility], Dr. York 03/2022 * [...] E x-cigarette smoker S he lives in [place]. She was born in [place], [place]. She has been since 1997 and has 1 child. * Medications: T akingWarfarin Sodium 4 MG Tablet 1 tablet Orally Once a day Atorvastatin Calcium 80 MG Tablet 1 tablet Orally Once a day FLUoxetine HCl 20 MG Capsule 1 capsule Orally Once a day Metoprolol Tartrate 25 MG Tablet 1 tablet with food Orally Twice a day metFORMIN HCl 500 MG Tablet 1 tablet Orally Once a day Gabapentin 100 MG Capsule 1 capsule Orally Once a day Omeprazole 20 MG Capsule Delayed Release TAKE 1 CAPSULE 30 MINUTES BEFORE MORNING MEAL ORALLY ONCE A DAY 90 DAYS Taking Warfarin Sodium 4 MG Tablet 1 tablet Orally Once a day Taking Atorvastatin Calcium 80 MG Tablet 1 tablet Orally Once a day Taking FLUoxetine HCl 20 MG Capsule 1 capsule Orally Once a day Taking Metoprolol Tartrate 25 MG Tablet 1 tablet with food Orally Twice a day Taking metFORMIN HCl 500 MG Tablet 1 tablet Orally Once a day Taking Gabapentin 100 MG Capsule 1 capsule Orally Once a day Taking Omeprazole 20 MG Capsule Delayed Release TAKE 1 CAPSULE 30 MINUTES BEFORE MORNING MEAL ORALLY ONCE A DAY 90 DAYS Not-Taking/PRNDocusate Sodium diazePAM 5 MG Tablet 1 tablet if needed Orally every 4 hours Not-Taking/PRN Docusate Sodium Not-Taking/PRN diazePAM 5 MG Tablet 1 tablet if needed Orally every 4 hours DiscontinueddiazePAM 5 MG Tablet 1 tablet Orally every 4 hours for anxiety diazePAM 5 MG Tablet 1 tablet if needed Orally Once a day Medication List reviewed and reconciled with the patientDiscontinued diazePAM 5 MG Tablet 1 tablet Orally every 4 hours for anxiety Discontinued diazePAM 5 MG Tablet 1 tablet if needed Orally Once a day Medication List reviewed and reconciled with the patient * Allergies: P ercocetMonistat 3: burningno[Allergies Verified] Objective: * Vitals: H t: 58, Wt:175, BMI:36.57, BP:137/74, HR:80, Temp:98.6, Wt-k.38. * Examination: G eneral Examination: GENERAL APPEARANCE: p jessi, well nourished, well developed, in no acute distress, calm and relaxed: obese: woman. HEAD: a traumatic, normocephalic. EYES: e [...] auscultation . BREASTS: n o masses palpable bilaterally: no drainage: no discharge: no dimpling: nontender. ABDOMEN: b owel sounds normal, no ascites, no organomegaly, no mass: centripital obesity. RECTAL EXAM: n ot examined. MUSCULOSKELETAL: e xtremities unremarkable, no clubbing, cyanosis or edema. PERIPHERAL PULSES: n ormal. NEUROLOGIC: a lert and oriented, cranial nerves 2-12 grossly intact, deep tendon reflexes 2+ symmetrical, motor strength normal upper and lower extremities, sensory exam intact, right hemiparesthesias, Nonverbal, aphasia. PSYCH: a lert, oriented. Assessment: * [...] of insulin - E11.9 N otes :Her brother who cares for her reports that she has been compliant with meals and with all of her medications. Comprehensive blood work with a microalbumin fasting glucose fasting lipids and hemoglobin A1c has been ordered. 4 . G timothy-esophageal reflux disease without esophagitis - K21.9 ?Notes :She will continue on omeprazole and liquid antacid as needed. 5 . F ibromyalgia - M79.7 N otes :Fibromyalgia lately has been low-grade she lives with a without a great deal difficulty. No medical therapies necessary. 6 . A nticoagulation adequate - Z79.01 N otes :She has had no bleeding and is compliant with her therapy. 7 . F ormer smoker - Z87.891 N otes :He is unable to obtain cigarettes. She does not smoke since his stroke. She says she does not want to. 8 . R ight hemiplegia - G81.91 N otes :There has been no change in the weakness of the right arm and leg. She remains confined to a wheelchair. The weakness in the right arm is dense. Plan: * Treatment: 2. T ype 2 diabetes mellitus without complication, without long-term current use of insulin L AB: PROFILE, FASTING (COMPREHENSIVE METABOLIC) L AB: CBC w DIFF L AB: Lipid Panel L AB: Hemoglobin A1c 3. O thers Continue diazePAM Tablet, 5 MG, 1 tablet if needed, Orally, every 4 hours; C ontinue Omeprazole Capsule Delayed Release, 20 MG, TAKE 1 CAPSULE 30 MINUTES BEFORE MORNING MEAL ORALLY ONCE A DAY 90 DAYS; C ontinue Atorvastatin Calcium Tablet, 80 MG, 1 tablet, Orally, Once a day; C ontinue FLUoxetine HCl Capsule, 20 MG, 1 capsule, Orally, Once a day; C ontinue metFORMIN HCl Tablet, 500 MG, 1 tablet, Orally, Once a day; C ontinue Docusate Sodium. * Procedure Codes: * Preventive Medicine: Counseling: C are goal follow-up plan: Counseling for abnormal BMI given Y es Above Normal BMI Follow-up D ietary management education, guidance, and counseling S moking/Tobacco Use Patient counseled on the dangers of tobacco use and urged to quit. 1 DM Care Plan: P atient Lifestyle Goals [...] true * Provider: Una Hubbard MD Date: 1 Generated for Printi ng/Faxing/eTransmitting on: 07/03/2024 12:07 PM EST History and Physical Notes * HPI (History of Present Illness) Category Sub-Category Detail Notes COVID-19 Screening Questions Have you had any new onset fever, chills, cough, congestion, sore throat, shortness of breath, muscle aches?: No Examination Category Sub-Category Detail Notes General Examination GENERAL APPEARANCE: pleasant , well nourished, well developed, in no acute distress, calm and relaxed: obese: woman HEAD: atraumatic, normocep halic EYES: eomi, perrla, anicte haydee, conjugate EARS: normal NOSE: septum intact NECK/THYROID: no jugular venous di stention, no carotid bruit, thyroid normal HEART: no clicks, gallops, murmurs, or rubs, regular rhythm, S1, S2 normal, no s3, or vascular bruits LUNGS: clear to auscultatio n ABDOMEN: bowel sounds normal, no ascites, no organomegaly, no mass: centripital obesity NEUROLOGIC: alert and oriented, cranial nerves 2-12 grossly intact, deep tendon reflexes 2+ symmetrical, motor strength normal upper and lower extremities, sensory exam intact, right hemiparesthesias, Nonverbal, aphasia SKIN: no suspicious lesion s, anicteric PERIPHERAL PULSES: normal BREASTS: no masses palpable b ilaterally: no drainage: no discharge: no dimpling: nontender MUSCULOSKELETAL: extremities unremark able, no clubbing, cyanosis or edema LYMPH NODES: no enlarged lymph no tj,spleen normal RECTAL EXAM: not examined PSYCH: alert, oriented ORAL CAVITY: normal, unremarkable
--- NOTE | 2025-05-02 10:10 | MHC.OFFVISCO ---
Intake Intake Visit Reasons: Anticoagulation Allergies acetaminophen (Percocet) Allergy (Severe, Verified 05/02/25 10:06) ITCHY RASH oxycodone (Percocet) Allergy (Severe, Verified 05/02/25 10:06) Itching Penicillins (PENICILLINS) Allergy (Intermediate, Verified 05/02/25 10:06) itchy rash naproxen (NAPROXEN) Allergy (Unknown, Verified 05/02/25 10:06) STOMACH PAIN Medication List - Last Reconciled 05/02/25 by Ana Maria Mccullough RN acetaminophen ER mg PO atorvastatin 80 mg PO DAILY bisacodyl 10 mg PO BEDTIME chlorhexidine gluconate 0.12% PO docusate sodium 100 mg PO BEDTIME fluoxetine 20 mg PO DAILY gabapentin 100 mg PO DAILY metformin 500 mg PO DAILY metoprolol tartrate 25 mg PO BID omeprazole 20 mg PO DAILY warfarin 4 mg See Protocol PO DAILY Nursing Note INR: 2.2- in therapeutic range of 2-3 Medications and supplements reviewed- no changes No changes in health, diet, medications, or supplements, Denies any signs and symptoms of bleeding or bruising or clotting. Bleeding, bruising, clotting discussed Nutritional guidance given Dose: 4mg x 2, 2mg x 5 F/U INR: pt req 2 weeks Patient verbalizes understanding of instructions given pt to acs in w/c acompanied by brother Anti-Coag Initial Assessment Social Hx Patient Tobacco Use Status: Never used Tobacco alcohol intake: never Alcohol intake frequency: does not drink Coding Level of Care Code Est Patient Level 1 Diagnoses Current use of anticoagulant therapy Z79.01 Results AMB INR Fingerstick AMB INR Fingerstick 2.2 Last Edit by Ana Maria Mccullough RN on 05/02/25 10:12 interface delay Assessment & Plan Assessment & Plan (1) Current use of anticoagulant therapy: Code(s): Z79.01 - intermediate (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
--- OUTSIDE RECORDS SUMMARY | 2025-05-02 12:07 | XMS_ITS | Patient Health Record ---
[facility] Address [address] [place] [address] Care Team Providers Care Us Marketing Director Name Role Phone Jose E Hubbard MD Primary Care Provider UnavailKhadar Payne Unavailable [phone] Allergies Allergen (clinical drug ingredient) Drug/Non Drug [...] Omeprazole 20 MG take 1 capsule by [facility] twice a day 30 MINUTES PRIOR TO BREAKFAST AND SUPPER Oral; Duration: 30 Active Vitamin D3 400 units once daily Active Social History Tobacco use other than smoking: Question Answer Notes Are you an other tobacco user? No Problems Problem Type SNOMED Code ICD Code Onset Dates Problem Status W/U Status Risk Notes Problem Arthralgia (44241915) Arthralgia (719.40) Active confirmed Problem Disorder of joint of ankle and/or foot (544676858) Arthritis - Degenerative (719.97) Active confirmed Problem Hammer toe (928320946) Hammer toe (735.4) Active confirmed Problem Onychomycosis (143796655) Onychomycosis (110.1) Active confirmed Problem Pain in limb (05568128) Pain in Limb (729.5) Active confirmed Problem Tenosynovitis (08136901) Tenosynovitis (727.06) Active confirmed Problem Foot ulcer (72130983) Ulcer of Other Part of Foot (707.15) Active confirmed Plan Of Treatment Pending Test Test Name Order Date X ray : Foot, left 3V 12/28/2011 33863- Debride <25 sq cm 08/17/2013 Insurance Providers Payer Name Payer Address Payer Phone Subscriber Number Group Number Insured Name Patient Relationship to Insured Coverage Start Date Coverage End Date [facility] [address] [place] [address] [id number] GAYLA AIKEN Self - patient is the insured Medical (General) History Medical History History ICD Code fibromyalgia Reflux Surgical History Surgery Date(Month/Year) foot surgery 2008 hand/wrist 2007
--- OUTSIDE RECORDS SUMMARY | 2025-05-02 12:07 | XMS_ITS | Clinical Summary ---
Author Organization [employer] Address [address] [place] [address] Care Team Providers Care Customer Resolution Specialist Name Role Phone Unavailable Primary Care Provider [...] patient's age to complete this topic Insurance [facility] MEDICAID STAND ADULT
--- OUTSIDE RECORDS SUMMARY | 2025-05-02 12:08 | XMS_ITS | Clinical Summary ---
Author Organization [facility] Address [address] [place] [address] Care Team Providers Care Freelance Digital Project Manager Name Role Phone Unavailable Primary Care Provider [...] Documents on File Type Date Recorded Patient Instructional Materials Director Expl anation Health Care Decision (hx) 07/20/2018 AD ALMA ROSA DIRECTIVE
--- OUTSIDE RECORDS SUMMARY | 2025-05-02 12:08 | XMS_ITS | Patient Health Record ---
Author Organization Jose E Hubbard III, MD Address [address] [place] [address] [place] [address] Care Team Providers Care Cell Biology Scientist Name Role Phone Dr. Jose E Hubbard III Primary Care Provider Allergies Allergen (clinical drug ingredient) Drug/Non Drug Allergy documented on EMR Reaction Allergy Type Onset Date Status acetaminophen / oxycodone Percocet Unknown Drug Allergy Active miconazole Monistat 3 burning Drug Allergy Activ e Results Component Value Reference Range Notes INR WHOLE BLOOD POC Reviewed date:05/12/2024 04:18:48 PM Interpretation: Performing Lab:[facility], [address] [place] [phone] Notes/Report: PT, INR - [facility] 1.9 0.9-1.1 METER #: [id number] INTERNATIONAL NORMALIZED RATIO (INR) REFERENCE RANGES Reference [...] OC Reviewed date:05/12/2024 04:18:48 PM Interpretation: Performing Lab:[facility], [address] [place] [phone] Notes/Report: Prothrombin Time Whole Bld POC 23.3 11.1-13.5 sec INR WHOLE BLOOD POC Reviewed date:05/29/2024 10:54:12 AM Interpretation: Performing Lab:[facility], [address] [place] [phone] Notes/Report: PT, INR - [facility] 2.4 0.9-1.1 METER #: [id number] INTERNATIONAL NORMALIZED RATIO (INR) REFERENCE RANGES Reference [...] OC Reviewed date:05/29/2024 10:54:12 AM Interpretation: Performing Lab:[facility], [address] [place] [phone] Notes/Report: Prothrombin Time Whole Bld POC 29.1 11.1-13.5 sec INR WHOLE BLOOD POC Reviewed date:06/19/2024 06:09:47 PM Interpretation: Performing Lab:[facility], [address] [place] [phone] Notes/Report: PT, INR - [facility] 2.2 0.9-1.1 METER #: [id number] INTERNATIONAL NORMALIZED RATIO (INR) REFERENCE RANGES Reference [...] OC Reviewed date:06/19/2024 06:09:47 PM Interpretation: Performing Lab:[facility], [address] [place] [phone] Notes/Report: Prothrombin Time Whole Bld POC 26.9 11.1-13.5 sec INR WHOLE BLOOD POC Reviewed date:06/28/2024 09:04:14 AM Interpretation: Performing Lab:[facility], [address] [place] [phone] Notes/Report: PT, INR - [facility] 2.6 0.9-1.1 METER #: [id number] INTERNATIONAL NORMALIZED RATIO (INR) REFERENCE RANGES Reference [...] OC Reviewed date:06/28/2024 09:04:14 AM Interpretation: Performing Lab:[facility], [address] [place] [phone] Notes/Report: Prothrombin Time Whole Bld POC 31.7 11.1-13.5 sec INR WHOLE BLOOD POC Reviewed date:08/01/2024 12:17:16 PM Interpretation: Performing Lab:[facility], [address] [place] [phone] Notes/Report: PT, INR - [facility] 2.0 0.9-1.1 METER #: [id number] INTERNATIONAL NORMALIZED RATIO (INR) REFERENCE RANGES Reference [...] OC Reviewed date:08/01/2024 12:17:17 PM Interpretation: Performing Lab:[facility], [address] [place] [phone] Notes/Report: Prothrombin Time Whole Bld POC 24.5 11.1-13.5 sec INR WHOLE BLOOD POC Reviewed date:08/01/2024 12:17:16 PM Interpretation: Performing Lab:[facility], [address] [place] [phone] Notes/Report: PT, INR - [facility] 1.7 0.9-1.1 METER #: [id number] INTERNATIONAL NORMALIZED RATIO (INR) REFERENCE RANGES Reference [...] OC Reviewed date:08/01/2024 12:17:16 PM Interpretation: Performing Lab:[facility], [address] [place] [phone] Notes/Report: Prothrombin Time Whole Bld POC 20.4 11.1-13.5 sec INR WHOLE BLOOD POC Reviewed date:08/07/2024 10:48:30 AM Interpretation: Performing Lab:[facility], [address] [place] [phone] Notes/Report: PT, INR - [facility] 2.5 0.9-1.1 METER #: [id number] INTERNATIONAL NORMALIZED RATIO (INR) REFERENCE RANGES Reference [...] OC Reviewed date:08/07/2024 10:48:30 AM Interpretation: Performing Lab:[address] [phone] Notes/Report: Prothrombin Time Whole Bld POC 29.5 11.1-13.5 sec INR WHOLE BLOOD POC Reviewed date:08/24/2024 08:14:12 PM Interpretation: Performing Lab:[address] [phone] Notes/Report: PT, INR - [facility] 2.8 0.9-1.1 METER #: [id number] INTERNATIONAL NORMALIZED RATIO (INR) REFERENCE RANGES Reference [...] OC Reviewed date:08/24/2024 08:14:12 PM Interpretation: Performing Lab:[facility], [address] [place] [phone] Notes/Report: Prothrombin Time Whole Bld POC 33.4 11.1-13.5 sec INR WHOLE BLOOD POC Reviewed date:09/13/2024 03:54:56 PM Interpretation: Performing Lab:[facility], [address] [place] [phone] Notes/Report: PT, INR - [facility] 4.5 0.9-1.1 METER #: [id number] INTERNATIONAL NORMALIZED RATIO (INR) REFERENCE RANGES Reference [...] OC Reviewed date:09/13/2024 03:54:56 PM Interpretation: Performing Lab:[facility], [address] [place] [phone] Notes/Report: Prothrombin Time Whole Bld POC 53.6 11.1-13.5 sec INR WHOLE BLOOD POC Reviewed date:09/13/2024 03:54:56 PM Interpretation: Performing Lab:[facility], [address] [place] [phone] Notes/Report: PT, INR - [facility] 3.0 0.9-1.1 METER #: [id number] INTERNATIONAL NORMALIZED RATIO (INR) REFERENCE RANGES Reference [...] OC Reviewed date:09/13/2024 03:54:56 PM Interpretation: Performing Lab:[facility], [address] [place] [phone] Notes/Report: Prothrombin Time Whole Bld POC 36.2 11.1-13.5 sec INR WHOLE BLOOD POC Reviewed date:09/27/2024 11:28:44 AM Interpretation: Performing Lab:[facility], [address] [place] [phone] Notes/Report: PT, INR - [facility] 3.2 0.9-1.1 METER #: [id number] INTERNATIONAL NORMALIZED RATIO (INR) REFERENCE RANGES Reference [...] OC Reviewed date:09/27/2024 11:28:44 AM Interpretation: Performing Lab:[facility], [address] [place] [phone] Notes/Report: Prothrombin Time Whole Bld POC 38.7 11.1-13.5 sec Complete Blood Count Auto Di ff Reviewed date:10/05/2024 05:27:32 AM Interpretation: Performing Lab:[facility], [address] [place] [phone] Notes/Report: White Blood Count 7.6 4.8-10.8 X10*3/uL [...] NRBC Abs Auto 0.000 0.0-0.012 X10*3/uL Comprehensive Muddy. Panel Fa st Reviewed date:10/05/2024 05:27:32 AM Interpretation: Performing Lab:[facility], [address] [place] [phone] Notes/Report: Sodium 144 135-145 mmol/L Potassium 4.2 [...] Panel Reviewed date:10/05/2024 05:27:32 AM Interpretation: Performing Lab:[address] [phone] Notes/Report: Triglycerides 61 <150 mg/dL Desirable Triglyceride: [...] Random Reviewed date:10/05/2024 05:27:32 AM Interpretation: Performing Lab:[facility], [address] [place] [phone] Notes/Report: Creatinine Urine 132.65 Microalbumin Urine 13.0 Microalbum/Creatinine Ratio Ur 9.8 <30 ug/mg cr Albumin/Creatinine Ratio Reference Ranges: Normal: < 30 ug/mg creatinine Microalbuminuria: 30 - 300 ug/mg creatinine Clinical Albuminuria: > 300 ug/mg creatinine INR WHOLE BLOOD POC Reviewed date:10/05/2024 05:27:32 AM Interpretation: Performing Lab:[facility], [address] [place] [phone] Notes/Report: PT, INR - [facility] 3.2 0.9-1.1 METER #: [id number] INTERNATIONAL NORMALIZED RATIO (INR) REFERENCE RANGES Reference [...] OC Reviewed date:10/05/2024 05:27:32 AM Interpretation: Performing Lab:[facility], [address] [place] [phone] Notes/Report: Prothrombin Time Whole Bld POC 38.7 11.1-13.5 sec Hemoglobin A1c Reviewed date:10/05/2024 05:27:32 AM Interpretation: Performing Lab:[facility], [address] [place] [phone] Notes/Report: Hemoglobin A1c % 7.3 <6.0 % [...] average glucose, using the formula of the V1S-Okyritt Average Glucose study (ADAG), Diabetes Care, Vol.31,#8, 2007 INR WHOLE BLOOD POC Reviewed date:10/20/2024 01:43:10 PM Interpretation: Performing Lab:[facility], [address] [place] [phone] Notes/Report: PT, INR - [facility] 3.5 0.9-1.1 METER #: [id number] INTERNATIONAL NORMALIZED RATIO (INR) REFERENCE RANGES Reference [...] OC Reviewed date:10/20/2024 01:43:10 PM Interpretation: Performing Lab:[facility], [address] [place] [phone] Notes/Report: Prothrombin Time Whole Bld POC 42.2 11.1-13.5 sec INR WHOLE BLOOD POC Reviewed date:11/01/2024 11:06:36 AM Interpretation: Performing Lab:[facility], [address] [place] [phone] Notes/Report: PT, INR - [facility] 2.3 0.9-1.1 METER #: [id number] INTERNATIONAL NORMALIZED RATIO (INR) REFERENCE RANGES Reference [...] OC Reviewed date:11/01/2024 11:06:36 AM Interpretation: Performing Lab:[facility], [address] [place] [phone] Notes/Report: Prothrombin Time Whole Bld POC 27.6 11.1-13.5 sec INR WHOLE BLOOD POC Reviewed date:11/22/2024 01:44:56 PM Interpretation: Performing Lab:[facility], [address] [place] [phone] Notes/Report: PT, INR - [facility] 2.0 0.9-1.1 METER #: [id number] INTERNATIONAL NORMALIZED RATIO (INR) REFERENCE RANGES Reference [...] OC Reviewed date:11/22/2024 01:44:56 PM Interpretation: Performing Lab:[facility], [address] [place] [phone] Notes/Report: Prothrombin Time Whole Bld POC 24.0 11.1-13.5 sec INR WHOLE BLOOD POC Reviewed date:12/20/2024 12:42:36 PM Interpretation: Performing Lab:[facility], [address] [place] [phone] Notes/Report: PT, INR - [facility] 3.3 0.9-1.1 METER #: [id number] INTERNATIONAL NORMALIZED RATIO (INR) REFERENCE RANGES Reference [...] OC Reviewed date:12/20/2024 12:42:36 PM Interpretation: Performing Lab:[facility], [address] [place] [phone] Notes/Report: Prothrombin Time Whole Bld POC 39.7 11.1-13.5 sec INR WHOLE BLOOD POC Reviewed date:01/07/2025 05:06:41 AM Interpretation: Performing Lab:[facility], [address] [place] [phone] Notes/Report: PT, INR - [facility] 3.0 0.9-1.1 METER #: [id number] INTERNATIONAL NORMALIZED RATIO (INR) REFERENCE RANGES Reference [...] OC Reviewed date:01/07/2025 05:06:41 AM Interpretation: Performing Lab:[facility], [address] [place] [phone] Notes/Report: Prothrombin Time Whole Bld POC 35.8 11.1-13.5 sec INR WHOLE BLOOD POC Reviewed date:01/18/2025 11:11:48 AM Interpretation: Performing Lab:[facility], [address] [place] [phone] Notes/Report: PT, INR - [facility] 2.1 0.9-1.1 METER #: [id number] INTERNATIONAL NORMALIZED RATIO (INR) REFERENCE RANGES Reference [...] OC Reviewed date:01/18/2025 11:11:48 AM Interpretation: Performing Lab:[facility], [address] [place] [phone] Notes/Report: Prothrombin Time Whole Bld POC 25.2 11.1-13.5 sec INR WHOLE BLOOD POC Reviewed date:02/04/2025 01:20:27 PM Interpretation: Performing Lab:[facility], [address] [place] [phone] Notes/Report: PT, INR - [facility] 3.5 0.9-1.1 METER #: [id number] INTERNATIONAL NORMALIZED RATIO (INR) REFERENCE RANGES Reference [...] OC Reviewed date:02/04/2025 01:20:27 PM Interpretation: Performing Lab:[facility], [address] [place] [phone] Notes/Report: Prothrombin Time Whole Bld POC 41.7 11.1-13.5 sec INR WHOLE BLOOD POC Reviewed date:02/09/2025 10:33:25 AM Interpretation: Performing Lab:[facility], [address] [place] [phone] Notes/Report: PT, INR - [facility] 3.0 0.9-1.1 METER #: [id number] INTERNATIONAL NORMALIZED RATIO (INR) REFERENCE RANGES Reference [...] OC Reviewed date:02/09/2025 10:33:25 AM Interpretation: Performing Lab:[facility], [address] [place] [phone] Notes/Report: Prothrombin Time Whole Bld POC 36.1 11.1-13.5 sec INR WHOLE BLOOD POC Reviewed date:03/07/2025 04:08:20 PM Interpretation: Performing Lab:[facility], [address] [place] [phone] Notes/Report: PT, INR - [facility] 2.2 0.9-1.1 METER #: [id number] INTERNATIONAL NORMALIZED RATIO (INR) REFERENCE RANGES Reference [...] Reviewed date:03/07/2025 04:08:20 PM Interpretation: Performing Lab:[facility] [address] [phone] Notes/Report: Prothrombin Time Whole Bld POC 26.4 11.1-13.5 sec INR WHOLE BLOOD POC Reviewed date:03/23/2025 05:24:34 AM Interpretation: Performing Lab:[facility], [address] [place] [phone] Notes/Report: PT, INR - [facility]ag [facility] 2.3 0.9-1.1 METER #: [id number] INTERNATIONAL NORMALIZED RATIO (INR) REFERENCE RANGES Reference [...] OC Reviewed date:03/23/2025 05:24:34 AM Interpretation: Performing Lab:[facility], [address] [place] [phone] Notes/Report: Prothrombin Time Whole Bld POC 27.3 11.1-13.5 sec INR WHOLE BLOOD POC Reviewed date:04/04/2025 02:31:59 PM Interpretation: Performing Lab:[facility], [address] [place] [phone] Notes/Report: PT, INR - [facility]ag [facility] 2.4 0.9-1.1 METER #: [id number] INTERNATIONAL NORMALIZED RATIO (INR) REFERENCE RANGES Reference [...] OC Reviewed date:04/04/2025 02:31:59 PM Interpretation: Performing Lab:[facility], [address] [place] [phone] Notes/Report: Prothrombin Time Whole Bld POC 28.6 11.1-13.5 sec INR WHOLE BLOOD POC Reviewed date:04/19/2025 01:10:15 PM Interpretation: Performing Lab:[facility], [address] [place] [phone] Notes/Report: PT, INR - [facility]ag Clinic 2.4 0.9-1.1 METER #: [id number] INTERNATIONAL NORMALIZED RATIO (INR) REFERENCE RANGES Reference [...] Prothrombin Time Whole Bld P OC Reviewed date:04/19/2025 01:10:15 PM Interpretation: Performing Lab:[facility], [address] [place] [phone] Notes/Report: Prothrombin Time Whole Bld POC 29.3 11.1-13.5 sec Reason For Referral No Information Medications Medication SIG (Take, Route, Frequency, Duration) Notes Start Date End Date Status Docusate Sodium Acti ve diazePAM 5 MG 1 tablet if needed O rally every 4 hours 02/16/2025 Active Gabapentin 100 MG 1 capsule Orally Onc e a day Active Omeprazole 20 MG TAKE 1 CAPSULE 30 NH NUTES BEFORE MORNING MEAL ORALLY ONCE A [...] Problem Status W/U Status Risk Notes Problem 0074559 Former smoker (Z87.891) Active confirmed He is unable to obtain cigarettes. She does not smoke since his stroke. She says she does not want to. Problem 32184562 Fibromyalgia (M79.7) Active confirmed Fibromyalgia lately has been low-grade she lives with a without a great deal difficulty. No medical therapies necessary. Problem 083147515 Gastro-esophagea l reflux disease without esophagitis (K21.9) Active confirmed She will continue on omeprazole and liquid antacid as needed. Problem 64951580 Essential hypertension (I10) Active confirmed Low The most recent blood pressure was within normal limits and no change in her regimen was necessary. Problem 921309337 Anticoagulation adequate (Z79.01) Active confirmed She has had no bleeding and is compliant with her therapy. Problem CVA - Cerebrovascular accident (415548472) CVA (cerebral vascular accident) (I63.9) Active confirmed She is currently anticoagulated because of the stroke. She has a dense right hemiplegia, but no further neurological symptoms. She is awake and alert and responsive to questions. Her speech is fluent. Problem 849251395 Morbid obesity (E66.01) Active confirmed He discussed her overweight status. We discussed diet and nutrition. We made plans for her to lose weight at a rate of one half of a pound per week. Problem Right hemiplegia (803588654) Right hemiplegia (G81.91) Active confirmed There has been no change in the weakness of the right arm and leg. She remains confined to a wheelchair. The weakness in the right arm is dense. Problem 497524455 Type 2 diabetes mellitus without complication, without [...] Provider Diagnosis Jose E Hubbard III, MD [address] [place] [address] [place] [address] 07/14/2024 Jose E Hubbard Essential hypertensi on I10 ; CVA (cerebral vascular accident) I63.9 ; Gastro-esophageal reflux disease without esophagitis K21.9 ; Anticoagulation adequate Z79.01 ; Former smoker Z87.891 ; Fibromyalgia M79.7 and Right hemiplegia G81.91 Jose E Hubbard III, MD [address] [place] [address] [place] [address] 10/11/2024 Jose E Hubbard Essential hypertensi on I10 ; CVA (cerebral vascular accident) I63.9 ; Fibromyalgia M79.7 ; Right hemiplegia G81.91 ; Former smoker Z87.891 ; Anticoagulation adequate Z79.01 ; Type 2 diabetes mellitus without complication, without long-term current use of insulin E11.9 and Obesity (BMI 30-39.9) E66.9 Jose E Hubbard III, MD [address] [place] [address] [place] [address] 10/30/2024 Jose E Hubbard Essential hypertensi on I10 ; Acute abdominal pain R10.9 ; Anticoagulation adequate Z79.01 ; CVA (cerebral vascular accident) I63.9 ; Gastro-esophageal reflux disease without esophagitis K21.9 ; Fibromyalgia M79.7 ; Type 2 diabetes mellitus without complication, without long-term current use of insulin E11.9 ; Right hemiplegia G81.91 and Former smoker Z87.891 Jose E Hubbard III, MD [address] [place] [address] [place] [address] 12/06/2024 Jose E Hubbard Essential hypertensi on [...] M79.7 Jose E Hubbard III, MD [address] [place] [address] 03/14/2025 Jose E Hubbard Essential hypertensi on I10 ; CVA (cerebral vascular accident) I63.9 ; Type 2 diabetes mellitus without complication, without long-term current use of insulin E11.9 ; Gastro-esophageal reflux disease without esophagitis K21.9 ; Fibromyalgia M79.7 ; Anticoagulation adequate Z79.01 ; Former smoker Z87.891 and Right hemiplegia G81.91 Jose E Hubbard III, MD [address] [place] [address] [place] [address] 07/25/2024 Jose E Hubbard III, MD [address] [place] [address] [place] [address] 07/25/2024 Jose E Hubbard III, MD [address] [place] [address] [place] [address] 09/20/2024 Jose E Hubbard Essential hypertensi on I10 Jose E Hubbard III, MD [address] [place] [address] [place] [address] 09/26/2024 Jose E Hubbard III, MD [address] [place] [address] [place] [address] 11/14/2024 Jose E Hubbard Essential hypertensi on I10 Jose E Hubbard III, MD [address] [place] [address] [place] [address] 02/05/2025 Jose E Hubbard Essential hypertensi on I10 Jose E Hubbard III, MD [address] [place] [address] [place] [address] 02/15/2025 Jose E Hubbard III, MD [address] [place] [address] [place] [address] 02/16/2025 Jose E Hubbard Assessments Encounter Date [...] PROFILE, FASTING (COMPREHENSIVE METABOLI C) 03/14/2025 PROFILE, FASTING (COMPREHENSIVE METABOLI C) 04/15/2022 PROFILE, [...] CBC w DIFF 06/03/2020 CBC w DIFF 10/23/2021 CBC w DIFF 02/10/2022 CBC w DIFF 01/05/2023 CBC w DIFF 10/05/2022 CBC w DIFF 10/13/2018 CBC w DIFF 11/10/2021 CBC w DIFF [...] Name:Jose E Hubbard , 06/14/2025 09:45:00 AM, [address] [place] [address] [address], [place], [address], Provider Name:Jose E Hubbard , 07/17/2025 10:00:00 AM, [address] [place] [address] [address], [place], [address], Insurance Providers Payer Name Payer Address Payer Phone Subscriber Number Group Number Insured Name Patient Relationship to Insured Coverage Start Date Coverage End Date MEDICARE NGS [address] [place] [address] [id number] Malu Garcia Self - patient is the [...]
[2025-05-02 12:30] LABS: Prothrombin Time Whole Bld POC 26.5 sec (11.1-13.5); ~PT, ~INR - Anti Coag Clinic 2.2 (0.9-1.1)
== END 2025-05-02 10:24 | disposition home or self-care (01) ==
LOC: HO.ACS 10:00
PROVIDERS: PCP Internal Medicine Medical Oncology; Visit Provider Internal Medicine Medical Oncology
DX: Z79.01 Long term (current) use of anticoagulants (principal)

== ENCOUNTER → 2025-05-02 10:00 | Outpatient (BNVA) | payer MEDICARE, MEDICAID, SELFPAY | PROVIDERS: PCP Internal Medicine Medical Oncology; Visit Provider Internal Medicine Medical Oncology | DX: I69.90 Unspecified sequelae of unspecified cerebrovascular disease (principal); Z51.81 Encounter for therapeutic drug level monitoring; Z79.01 Long term (current) use of anticoagulants | CPT/HCPCS: 85610; 99211 ==